=== PATIENT | male | born 1975 | race African-American/Black ===

== ENCOUNTER 2019-06-10 21:57 | Inpatient (IN) | payer MEDICAID ==
[~2019-06-10] VITALS: Ht 180.3 cm; Wt 50.8 kg
--- NOTE | 2019-06-10 22:25 | NUR ---
MOTHER, BART CALLED. [phone]
[2019-06-10] MEDS ORDERED: IV NS 0.9% 500 ML BAG IV ONE (22:30)
--- NOTE | 2019-06-10 22:31 | NUR ---
HALI AT BEDSIDE FOR BLOOD DRAW
--- NOTE | 2019-06-10 22:33 | NUR ---
URINE TAKEN AND SENT TO LAB
[2019-06-10 22:38] LABS: BASOPHILS # (AUTO) 0.1 /CMM (0.0-0.2); BASOPHILS % (AUTO) 0.5 % (0.0-2.0); HEMATOCRIT 38 % (39-51); HEMOGLOBIN 12.8 g/dL (13.5-17.5); LYMPHOCYTES # (AUTO) 1.8 /CMM (0.8-4.8); LYMPHOCYTES % (AUTO) 17.9 % (20.0-44.0); MEAN CORPUSCULAR HGB CONC 33 g/dl (31.0-36.0); MEAN CORPUSCULAR VOLUME 94 fL (80-96); MONOCYTES # (AUTO) 0.6 /CMM (0.1-1.30); MONOCYTES % (AUTO) 6.1 % (2.0-12.0); NEUTROPHILS # (AUTO) 7.4 /CMM (1.8-8.9); NEUTROPHILS % (AUTO) 74.5 % (43.0-81.0); PLATELET COUNT (AUTO) 335 /CMM (150-450); RED BLOOD CELL COUNT(AUTO) 4.08 MIL/uL (4.5-6.0)
[2019-06-10 22:44] LABS: APPEARANCE,URINE Cloudy (CLEAR); BILIRUBIN,URINE MODERATE (NEGATIVE); BLOOD, URINE Large Ery/uL (NEGATIVE); COLOR,URINE Red (YELLOW); KETONES,URINE Trace (NEGATIVE); LEUKOCYTE ESTERASE ,URINE Large (NEGATIVE); NITRITE, URINE Positive (NEGATIVE); PH,URINE 8.5 (5.0-8.0); PROTEIN,URINE >=300 mg/dl (NEGATIVE); UGLUCOSE Negative (NEGATIVE)
[2019-06-10 22:45] LABS: CALCIUM, SERUM 9.3 mg/dL (8.5-10.1); CREATININE 0.6 mg/dL (0.6-1.3); POTASSIUM 4.3 mmol/L (3.5-5.1)
[2019-06-10 22:50] LABS: ALBUMIN 2.7 g/dL (3.4-5.0); BILIRUBIN,DIRECT 0.1 mg/dL (0.0-0.2); BILIRUBIN,TOTAL 0.5 mg/dL (0.2-1.0)
[2019-06-10 23:06] LABS: BACTERIA,URINE Rare /HPF (None Seen); RBC,URINE TOO NUMEROUS TO COUN /HPF (0-2); SQUAMOUS EPITHELIAL CELL,UR Rare /HPF (None Seen); WBC,URINE 0-2 /HPF (0-3)
[2019-06-10] MEDS ORDERED: PIPERACILLIN /TAZOBACTAM 3.375 G VIAL IV ONE (23:16)
[2019-06-10] MEDS ORDERED: VANCOMYCIN 1 GM VIAL ONE (23:16)
--- NOTE | 2019-06-10 23:21 | NUR ---
CALLED HOUSE SUP FOR LEONIDES BED
[2019-06-10] MEDS ORDERED: MAG HYDROX/AL HYDROX/SIMETH 30 ML UDC PO PRN (23:30)
[2019-06-10] MEDS ORDERED: *INSULIN REGULAR(HUMULIN R)HUM 100 UNIT/ML VIAL SQ PRN (23:30)
[2019-06-10] MEDS ORDERED: MAGNESIUM HYDROXIDE 30 ML UDC PO PRN (23:30)
[2019-06-10] MEDS ORDERED: DEXTROSE 50%-WATER 50 ML DISP.SYRIN IV PRN (23:30)
[2019-06-10] MEDS ORDERED: ACETAMINOPHEN 325 MG TABLET PO PRN (23:30)
[2019-06-10] MEDS ORDERED: ONDANSETRON HCL/PF 4 MG/2 ML VIAL IVP PRN (23:30)
[2019-06-10] MEDS ORDERED: INSULIN REGULAR, HUMAN 100 UNIT/ML 3 ML VIAL SQ PRN (23:30)
[2019-06-10] MEDS ORDERED: VANCOMYCIN 1 GM in IV D5W 250 ML IV ONE (23:30)
[2019-06-10] MEDS ORDERED: Z GUARD REMEDY 2 OZ OINT TP PRN (23:30)
[2019-06-10] MEDS ORDERED: PIPERACILLIN /TAZOBACTAM 3.375 G in IV D5W 50 ML IV ONE (23:30)
--- NOTE | 2019-06-11 00:12 | NUR ---
REPORT GIVEN TO LEN BEJARANO JENNY.
[2019-06-11] MEDS ORDERED: CHLO473M3 MM (01:08)
[2019-06-11] MEDS ORDERED: ALBU2.5V13 NEB (01:08)
[2019-06-11] MEDS ORDERED: HYDR100T27 GT (01:08)
[2019-06-11] MEDS ORDERED: LEVE500T9 GT (01:08)
[2019-06-11] MEDS ORDERED: DOCU100C36 GT (01:08)
[2019-06-11] MEDS ORDERED: MULT-1119 GT (01:08)
[2019-06-11] MEDS ORDERED: LORA-259 GT (01:08)
[2019-06-11] MEDS ORDERED: CRAN3875 PO (01:08)
[2019-06-11] MEDS ORDERED: BACL10TA GT (01:08)
[2019-06-11] MEDS ORDERED: NUTR1PAC14 GT (01:08)
[2019-06-11] MEDS ORDERED: AMIN30LI2 GT (01:08)
[2019-06-11] MEDS ORDERED: AMLO5TAB9 GT (01:08)
[2019-06-11] MEDS ORDERED: ASCO500T9 GT (01:08)
[2019-06-11] MEDS ORDERED: FERR325T23 GT (01:08)
[2019-06-11 01:09] VITALS: BP 155/86
[2019-06-11] MEDS: IV NS 0.9% 1,000 ML IV PRN ×2 (02:55→17:19)
--- NOTE | 2019-06-11 03:20 | NUR ---
PT TRANSFERRED STABLE FROM ER, PT ON MV SETTINGS ARE AC 18 400 +5 AT 40 % FIO2, TRACH PATENT AND SECURED, AMBU BAG IS AT BEDSIDE, VENT PLUG IN RED OUTLET, WILL CONTINUE TO MONITOR Addendum: 06/11/19 at 0321 by DEEPTI ELLER RT Amended: Links added.
[2019-06-11 04:00] VITALS: BP 143/87
[2019-06-11] MEDS ORDERED: PIPERACILLIN /TAZOBACTAM 3.375 G VIAL IV ONE (05:27)
[2019-06-11] MEDS ORDERED: PIPERACILLIN /TAZOBACTAM 3.375 G in IV NS 0.9% 50 ML IV SCH (06:00)
[2019-06-11 06:21] LABS: BASOPHILS % (AUTO) 0.5 % (0.0-2.0); EOSINOPHILS % (AUTO) 1.5 % (0.0-6.0); HEMATOCRIT 36 % (39-51); HEMOGLOBIN 12.2 g/dL (13.5-17.5); LYMPHOCYTES # (AUTO) 1.9 /CMM (0.8-4.8); LYMPHOCYTES % (AUTO) 19.9 % (20.0-44.0); MEAN CORPUSCULAR HGB CONC 33 g/dl (31.0-36.0); MEAN CORPUSCULAR VOLUME 94 fL (80-96); MONOCYTES # (AUTO) 0.7 /CMM (0.1-1.30); MONOCYTES % (AUTO) 7.6 % (2.0-12.0); NEUTROPHILS # (AUTO) 6.8 /CMM (1.8-8.9); NEUTROPHILS % (AUTO) 70.5 % (43.0-81.0); PLATELET COUNT (AUTO) 293 /CMM (150-450); WHITE BLOOD COUNT (AUTO) 9.6 K/uL (4.3-11.0)
[2019-06-11 07:20] LABS: CALCIUM, SERUM 9.2 mg/dL (8.5-10.1); CREATININE 0.6 mg/dL (0.6-1.3); PHOSPHORUS 3.1 mg/dL (2.5-4.9); POTASSIUM 4.2 mmol/L (3.5-5.1)
[2019-06-11] MEDS ORDERED: FEE PK DOSING 1 MIN EA MC ONE (07:30)
[2019-06-11] MEDS: BLOOD SUGAR DIAGNOSTIC 1 EACH STRIP VI SCH ×2 (07:55→11:18)
[2019-06-11] MEDS ORDERED: MERO1VIA IV (07:56)
[2019-06-11] MEDS ORDERED: MAGN400O6 GT (07:56)
[2019-06-11] MEDS ORDERED: ACET-2605 GT (07:56)
[2019-06-11] MEDS ORDERED: ACET-868 GT (07:56)
[2019-06-11] MEDS ORDERED: NUT.237L25 GT (07:56)
[2019-06-11] MEDS ORDERED: IPRA3AMP23 IH (07:56)
[2019-06-11] MEDS ORDERED: BISA10SU11 RC (07:56)
[2019-06-11] MEDS ORDERED: NA P133E RC (07:56)
[2019-06-11] MEDS ORDERED: [UNRECOGNIZED DRUG - CODE] IV (07:56)
[2019-06-11] MEDS ORDERED: INSU100V28 SQ (07:56)
[2019-06-11] MEDS ORDERED: MULT-447 GT (07:56)
[2019-06-11] MEDS ORDERED: CHLO118L6 TP (07:56)
[2019-06-11 08:00] VITALS: BP 120/68
--- NOTE | 2019-06-11 08:00 | NUR ---
ICU/RN: INITIAL NOTES,AM RECEIVED BEDSIDE REPORT FROM NIGHT NURSE. PT ALERT, OPENS EYES, DOES NOT FOLLOW COMMANDS. PT TRACH TO VENT WITH SETTINGS ORDEERED BY MD, NO ACUTE RESPIRATORY DISTRESS NOTED. PT SINUS ON TELE. JACOBSON CATH IN PLACE, HEMATURIA NOTED, MD AWARE. GTUBE IN PLACE, DIETARY CONSULT PENDING. PIVS PATENT AND INTACT, NO S/S OF INFECTION NOTED. IVF INFUSING ORDERED. ALL NEEDS WILL BE ATTENDED TO, SAFETY MEASURES TAKEN, BED IN LOW POSITION, SIDE RAILS UP,CALL LIGHT WITHIN REACH. WILL CONTINUE CARE.
[2019-06-11] MEDS: VANCOMYCIN 1 GM in IV D5W 250 ML IV SCH ×3 (08:35→23:25)
[2019-06-11] MEDS: PIPERACILLIN /TAZOBACTAM 3.375 G in IV D5W 100 ML IV SCH ×2 (11:32→19:47)
[2019-06-11 12:00] VITALS: BP 126/80
[2019-06-11] MEDS ORDERED: DEXTROSE 50%-WATER 50 ML DISP.SYRIN IV PRN (14:30)
[2019-06-11 16:00] VITALS: BP 128/72
[2019-06-11] MEDS: BLOOD SUGAR DIAGNOSTIC 1 EACH STRIP IN SCH ×2 (17:19→23:36)
--- NOTE | 2019-06-11 18:53 | NUR ---
ICU/RN ENDING NOTES,AM BEDSIDE REPORT WILL BE ENDORSED TO NIGHT NURSE FOR JENNY. PT CLEAN AND DRY, TRACH TO VENT WITH SETTINGS ORDERED. SINUS ON TELE. ALL NEEDS ATTENDED TO. WAITING FOR FEEDING PUMP FROM [employer] TO START TUBE FEEDING. BED IN LOW POSITION, SIDE RAILS UP, CALL LIGHT WITHIN REACH. WILL CONTINUE CARE. PT STILL NOTED WITH HEMATURIA, MDS AWARE.
[2019-06-11] MEDS: JEVITY 1.2 CAL 1,000 ML BOTTLE GT PRN (19:20)
[2019-06-11 20:00] VITALS: BP 136/95
--- NOTE | 2019-06-11 20:00 | NUR ---
RECEIVED PT IN BED AND REPORT FROM RN KORY, PT ALERT, OPENS EYES, DOES NOT FOLLOW COMMANDS. REMAINS TRACH TO VENT WITH AC SETTINGS ORDEERED BY MD, NO ACUTE RESPIRATORY DISTRESS NOTED. SINUS ON TELE.MONITOR, JACOBSON CATH IN PLACE, STILL HEMATURIA NOTED, MD AWARE. GTUBE IN PLACE, ON JEVITY 1.2 AT 35 CC/HR [id number] NO RESIDUAL NOTED PIVS PATENT AND INTACT, NO S/S OF INFECTION NOTED. IVF INFUSING ORDERED. ALL NEEDS WILL BE ATTENDED TO, SAFETY MEASURES TAKEN, BED IN LOW POSITION, SIDE RAILS UP,CALL LIGHT WITHIN REACH. WILL CONTINUE CARE. KEPT PT CLEAN DRY AND COMFORTABLE.
--- NOTE | 2019-06-11 20:30 | NUR ---
LEONIDES RN NOTES DUE MED GIVEN ORDERED , NO ASE NOTED .V/S STABLE AFEBRILE ,CONTINUE TO MONITOR PTS.
[2019-06-11] MEDS: INSULIN REGULAR, HUMAN 100 UNIT/ML 3 ML VIAL SQ PRN (23:35)
[2019-06-12] VITALS: BP 153/81
--- NOTE | 2019-06-12 | NUR ---
LEONIDES RN NOTES BLOOD SUGAR FOR 12MN IS 102MG/DL NO INSULIN COVERAGE GIVEN PER SLIDING SCALE , PT ON GT FEEDING WILL CHECK BLOOD SUGAR AGAIN AT 0600 HRS.
--- NOTE | 2019-06-12 02:57 | NUR ---
LEONIDES RN NOTES REPORT GIVEN TO LORE FOR CONTINUITY OF CARE.
--- NOTE | 2019-06-12 03:00 | NUR ---
RN OPENING NOTES: RECEIVED REPORT FROM CARLEE SNOWDEN. PATIENT. PATIENT IN BED, ON TRACH WITH VENT SETTINGS TOLERATING WELL. NO RESPIRATORY DISTRESS. NO S/S OF PAIN. NO FACIAL GRIMACING. IV ACCESS RIGHT FA #18 RUNNING NS AT 75 MLS/HR AND RIGHT HAND #24 RUNNING ZOSYN, TOLERATING WELL, NO ASE NOTED. JACOBSON INTACT, PATENT, AND STILL DRAINING CLEAR PINK-TINGED URINE. HOB AT 45 DEGREES, ON GTF, NO RESIDUAL AT THIS TIME. SAFETY PRECAUTIONS IMPLEMENTED. BED LOCKED AND IN LOWEST POSITION. PER ENDORSEMENT, MED RECON STILL NEEDS TO BE DONE. DR. MARTINEZ MADE AWARE BY CARLEE SNOWDEN. PER , F/U WITH AM DOCTOR. CALL LIGHT PLACED WITHIN REACH. WILL CONT. TO MONITOR.
[2019-06-12] MEDS: PIPERACILLIN /TAZOBACTAM 3.375 G in IV D5W 100 ML IV SCH ×3 (03:14→19:49)
[2019-06-12 04:00] VITALS: BP 137/84
[2019-06-12] MEDS: BLOOD SUGAR DIAGNOSTIC 1 EACH STRIP IN SCH ×4 (05:17→23:23)
[2019-06-12] MEDS: IV NS 0.9% 1,000 ML IV PRN ×2 (06:12→23:13)
--- NOTE | 2019-06-12 06:45 | NUR ---
RT NOTE Pt rec'd [facility] on AC mode. Trach is patent and secured. Pt shows no signs of resp distress or sob. Alarms are set and audible. vent plugged into red outlet. Ambu bag bedside. Will continue to monitor. Addendum: 06/12/19 at 0648 by JAMEE CARTER RT Amended: Links added.
--- NOTE | 2019-06-12 06:55 | NUR ---
RN OPENING NOTES: PATIENT IN BED, ON TRACH WITH VENT SETTINGS TOLERATING WELL. NO RESPIRATORY DISTRESS. NO PAIN. IV ACCESS RIGHT FA #18 RUNNING NS AT 75 MLS/HR AND RIGHT HAND #24 RUNNING ZOSYN, TOLERATING WELL, NO ASE NOTED. MED RECON STILL NEEDS TO BE DONE. DR. MARTINEZ MADE AWARE BY CARLEE SNOWDEN. PER , F/U WITH AM DOCTOR. ENDORSED TO AM SHIFT NURSE FOR CONTINUITY OF CARE.
[2019-06-12 07:37] LABS: BASOPHILS # (AUTO) 0.1 /CMM (0.0-0.2); BASOPHILS % (AUTO) 0.9 % (0.0-2.0); HEMATOCRIT 35 % (39-51); HEMOGLOBIN 11.7 g/dL (13.5-17.5); LYMPHOCYTES # (AUTO) 1.6 /CMM (0.8-4.8); LYMPHOCYTES % (AUTO) 20.7 % (20.0-44.0); MEAN CORPUSCULAR HGB CONC 34 g/dl (31.0-36.0); MEAN CORPUSCULAR VOLUME 94 fL (80-96); MONOCYTES # (AUTO) 0.7 /CMM (0.1-1.30); MONOCYTES % (AUTO) 9.1 % (2.0-12.0); NEUTROPHILS # (AUTO) 5.2 /CMM (1.8-8.9); NEUTROPHILS % (AUTO) 66.3 % (43.0-81.0); PLATELET COUNT (AUTO) 283 /CMM (150-450); RED BLOOD CELL COUNT(AUTO) 3.67 MIL/uL (4.5-6.0); WHITE BLOOD COUNT (AUTO) 7.8 K/uL (4.3-11.0)
[2019-06-12 07:48] LABS: CALCIUM, SERUM 8.9 mg/dL (8.5-10.1); CREATININE 0.6 mg/dL (0.6-1.3); MAGNESIUM 1.7 mg/dL (1.8-2.4); PHOSPHORUS 3.4 mg/dL (2.5-4.9); POTASSIUM 3.8 mmol/L (3.5-5.1)
[2019-06-12 08:00] VITALS: BP 103/70
[2019-06-12] MEDS: VANCOMYCIN 1 GM in IV D5W 250 ML IV SCH ×3 (08:21→23:05)
--- NOTE | 2019-06-12 08:52 | NUR ---
received pt from county home demonstration agent, obtunded, SR, on the vent, lungs partially congested, no edema, GT to feeding tolerates well, f/c good output, multiple wounds, v/s stable no pain, pt turned and repositioned.
--- NOTE | 2019-06-12 09:14 | NUR ---
WOUND CARE CONSULT: PT PRESENTS WITH SACRAL SCARRING, LEFT SHOULDER STAGE 3 ULCER, RT POSTERIOR THIGH STAGE 2 ULCER, SCARRING TO RT HEEL AND LEFT PLANTAR FOOT, PRESENT ON ADMISSION. PT IS INCONTINENT OF STOOL. RECOMMENDATIONS MADE FOR SKIN PROTECTION AND WOUND CARE. DISCUSSED WITH NURSING STAFF. PT ON FIRST STEP [facility]. DR DARBY MCKENNA AWARE OF SURGICAL CONSULT REQUEST FOR LEFT SHOULDER WOUND. WILL SEE PRN. MAO IN AGREEMENT WITH PLAN OF CARE. Addendum: 06/12/19 at 0916 by BLANCA ORTEGA WNDNU Amended: Links added.
[2019-06-12] MEDS: MULTIVIT W/MINERALS 1 TAB TABLET GT SCH (09:29)
[2019-06-12] MEDS ORDERED: ACETAMINOPHEN 325 MG TABLET PO PRN (09:30)
[2019-06-12] MEDS ORDERED: BISACODYL SUPP (10 MG) 10 MG/SUPP.RECT SUPP.RECT RC PRN (09:30)
[2019-06-12] MEDS ORDERED: HYDROGEL DRESSING 90 GM TUBE TP PRN (09:30)
[2019-06-12] MEDS ORDERED: TWOCAL HN 1,000 ML LIQUID GT SCH (09:30)
[2019-06-12] MEDS ORDERED: MAGNESIUM HYDROXIDE 30 ML UDC GT PRN (09:30)
[2019-06-12] MEDS ORDERED: MISCELLANEOUS MED 1 EA EA GT PRN (09:30)
[2019-06-12] MEDS: PROSOURCE / PROSTAT (PYXIS) 30 ML UDC GT SCH (09:30)
[2019-06-12] MEDS: hydrALAZINE HCL 50 MG TABLET GT SCH ×3 (09:30→16:37)
[2019-06-12] MEDS ORDERED: NA PHOS,M-B/NA PHOS,DI-BA 1 EA ENEMA RC PRN (09:30)
[2019-06-12] MEDS: HYDROGEL DRESSING 90 GM TUBE TP SCH (09:31)
[2019-06-12] MEDS: LEVETIRACETAM SOL (5 ML) 100 MG/ML UDC GT SCH ×2 (09:34→20:30)
[2019-06-12] MEDS: CHLORHEXIDINE GLUCONATE 15 ML UDC MM SCH ×2 (09:34→20:30)
[2019-06-12] MEDS: Magnesium 1GM/D5W 100ML PREMIX 100 ML IV SCH ×2 (11:49→12:59)
[2019-06-12 12:00] VITALS: BP 108/75
[2019-06-12] MEDS: BACLOFEN (10 MG) 10 MG TABLET GT SCH ×2 (12:36→16:38)
[2019-06-12] MEDS: ALBUTEROL FS 2.5 MG/0.5 ML VIAL.NEB NEB SCH ×2 (12:48→20:01)
[2019-06-12] MEDS: IPRATROPIUM NEB FS 0.5 MG/2.5 ML AMPUL.NEB NEB SCH ×2 (12:48→20:01)
[2019-06-12] MEDS ORDERED: Medication Not On Formulary EA (Ipratropium/Albuterol Sulfate (Duoneb 2.5-0.5 Mg/3 Ml So IH SCH (13:30)
[2019-06-12 16:00] VITALS: BP 100/73
--- NOTE | 2019-06-12 16:20 | NUR ---
pt is resting in the bed, no acute distress during the day, v/s stable, no pain, pt cleaned, changed and repositioned q2hrs.
[2019-06-12] MEDS ORDERED: ARGININE/GLUTAMINE/CALCIUM BMB 1 EACH POWD.PACK GT SCH (17:00)
[2019-06-12] MEDS ORDERED: Medication Not On Formulary EA (Cran/Vitc/Mannose/Inulin/Brom (Uti-Stat Liquid) 30 ML) PO SCH (17:00)
--- NOTE | 2019-06-12 19:00 | NUR ---
RN NOTES: RECEIVED PATIENT ON SEMI FOWLERS POSITION, OBTUNDED, NON VERBAL, OPEN EYES, ON TELE MONITOR SR RATE=73, ON VENTILATOR SHILEY SIZE8, AC-18 TV-400 FiO2-40% PEEP 5, ON JACOBSON CATH DRAINING INTO YELLOWISH COLORED URINE, CLEAR, NO RESIDUE OR SEDIMENTS NOTED, PEG TUBE IN SITE, WITH FEEDING ONGOING OF JEVITY 1.2 AT 35 ML/HR, WITH IVF OF NS AT 75 ML/HR VIA RFA G#18, PER ENDORSEMENT PATIENT HAS MULTIPLE SKIN ISSUES, LEFT SHOULDER STAGE III ULCER, SACRAL SCARRING, RIGHT POSTERIOR THIGH STAGE 2, RIGHT HEEL AND LEFT PLANTAR FOOT SCARRING. TURNING AND REPOSITIONING Q 2H, OFF LOADING AND ELEVATION OF BLE. KEPT ON CLOSE WATCH.ORIENTED TO UNIT AND STAFF, FALL,SAFETY AND ASPIRATION PRECAUTION OBSERVED, BED LOW AND LOCKED, CALL LIGHT WITHIN EASY REACH.
[2019-06-12 20:00] VITALS: BP 135/91
[2019-06-12] MEDS: JEVITY 1.2 CAL 1,000 ML BOTTLE GT PRN (20:31)
--- NOTE | 2019-06-12 20:39 | NUR ---
RN NOTES: PEG FEED FINISHED AT 2030, NEW BOTTLE OF JEVITY 1.2 AT 35 ML/HR STARTED, ALSO DUE MEDICATION GIVEN, TOLERATED, NO RESIDUAL, PEG FEEL REMAIN PATENT, NEEDS ATTENDED.
--- NOTE | 2019-06-12 22:45 | NUR ---
RN NOTES: TURNING AND REPOSITIONING DONE, NOTICED PATIENT GRIMACE DURING CHANGE OF POSITION, TYLENOL PRN FOR PAIN GIVEN, NON PHARMACOLOGIC INTERVENTION ALSO RENDERED, SUCH WARM BLANKET AND DIM LIT ROOM.NEEDS ATTENDED.
[2019-06-12] MEDS: INSULIN REGULAR, HUMAN 100 UNIT/ML 3 ML VIAL SQ PRN (23:24)
--- NOTE | 2019-06-12 23:24 | NUR ---
RN NOTES: BLOOD SUGAR 130, NO INSULIN PER SCALE, WILL CONTINUE TO MONITOR FOR SIGN OF HYPER AND HYPOGLYCEMIA.IVF COMPLTED REPLACE WITH NEW BOTTLE OF NS AT 75 ML/HR. DUE IV/ATB GIVEN.
[2019-06-13] VITALS (7 sets, daily range): BP systolic 113–150; BP diastolic 79–98
[2019-06-13] MEDS: IPRATROPIUM NEB FS 0.5 MG/2.5 ML AMPUL.NEB NEB SCH ×4 (02:00→19:30)
[2019-06-13] MEDS: ALBUTEROL FS 2.5 MG/0.5 ML VIAL.NEB NEB SCH ×4 (02:00→19:30)
--- NOTE | 2019-06-13 02:28 | NUR ---
RN NOTES: -MORNING CARE DONE, SPONGE BATH RENDERED, CLEAN AND CHANGE, NO BM, DRESSING DONE LEFT SHOULDER STAGE 3, DRY AND REDDISH PICK SURROUNDING, SACRAL AREA SCARRING IS DRY COVERED WITH MEPELEX, LEFT PLANTAR FOOT SCAR AND RIGHT HEEL SCAR COVERED WITH MEPELEX AND KEEP ELEVATED AND OFFLOAD, RIGHT POSTERIOR THIGH STAGE 2 DRY AND PICKISH/RED SURROUNDING HYDROGEL APPLIED AND COVERED WITH MEPELEX. TURNED AND REPOSITION AT FREQUENT INTERVALS.
[2019-06-13] MEDS: PIPERACILLIN /TAZOBACTAM 3.375 G in IV D5W 100 ML IV SCH ×3 (03:16→20:00)
[2019-06-13] MEDS: INSULIN REGULAR, HUMAN 100 UNIT/ML 3 ML VIAL SQ PRN (05:29)
[2019-06-13] MEDS: BLOOD SUGAR DIAGNOSTIC 1 EACH STRIP IN SCH ×4 (05:29→23:58)
--- NOTE | 2019-06-13 05:30 | NUR ---
RN NOTES: BLOOD SUGAR CHECKED-112, NO INSULIN PER SCALE, JEVITY 1.2 AT 45ML/HR FEEDING CONTINUE, PEG DRESSING CHANGE, WILL CONTINUE TO MONITOR FOR ANY JENNY. NEEDS ATTENDED.
--- NOTE | 2019-06-13 06:46 | NUR ---
RN NOTES: NEEDS ATTENDED TELE SR RATE=71, LATEST WEIGHT-114, NO BM, URINE OUTPUT-1500ML, FOR BLOOD TEST DONE TO F/U RESULT. ENDORSED FOR CONTINUITY OF CARE
[2019-06-13 06:55] LABS: BASOPHILS % (AUTO) 0.5 % (0.0-2.0); CREATININE 0.7 mg/dL (0.6-1.3); HEMATOCRIT 34 % (39-51); HEMOGLOBIN 11.3 g/dL (13.5-17.5); LYMPHOCYTES # (AUTO) 1.7 /CMM (0.8-4.8); LYMPHOCYTES % (AUTO) 23.7 % (20.0-44.0); MEAN CORPUSCULAR HGB CONC 33 g/dl (31.0-36.0); MEAN CORPUSCULAR VOLUME 94 fL (80-96); MONOCYTES # (AUTO) 0.7 /CMM (0.1-1.30); MONOCYTES % (AUTO) 9.5 % (2.0-12.0); NEUTROPHILS # (AUTO) 4.6 /CMM (1.8-8.9); NEUTROPHILS % (AUTO) 63.3 % (43.0-81.0); PHOSPHORUS 3.5 mg/dL (2.5-4.9); PLATELET COUNT (AUTO) 309 /CMM (150-450); RED BLOOD CELL COUNT(AUTO) 3.63 MIL/uL (4.5-6.0); WHITE BLOOD COUNT (AUTO) 7.3 K/uL (4.3-11.0)
[2019-06-13] MEDS: MULTIVIT W/MINERALS 1 TAB TABLET GT SCH (08:21)
[2019-06-13] MEDS: ASCORBIC ACID 500 MG TABLET GT SCH (08:21)
[2019-06-13] MEDS: LEVETIRACETAM SOL (5 ML) 100 MG/ML UDC GT SCH ×2 (08:21→21:10)
[2019-06-13] MEDS: FERROUS SULFATE (325 MG) 325 MG/TAB TABLET GT SCH (08:21)
[2019-06-13] MEDS: CHLORHEXIDINE GLUCONATE 15 ML UDC MM SCH ×2 (08:21→21:12)
[2019-06-13] MEDS: hydrALAZINE HCL 50 MG TABLET GT SCH ×3 (08:21→16:08)
[2019-06-13] MEDS: BACLOFEN (10 MG) 10 MG TABLET GT SCH ×3 (08:21→16:07)
[2019-06-13] MEDS: DOCUSATE SODIUM 100 MG CAPSULE PO SCH (08:21)
[2019-06-13] MEDS: AMLODIPINE BESYLATE 5 MG TABLET GT SCH (08:22)
[2019-06-13] MEDS: PROSOURCE / PROSTAT (PYXIS) 30 ML UDC GT SCH (08:22)
[2019-06-13] MEDS: HYDROGEL DRESSING 90 GM TUBE TP SCH (08:23)
[2019-06-13] MEDS: VANCOMYCIN 1 GM in IV D5W 250 ML IV SCH (08:24)
[2019-06-13] MEDS: IV NS 0.9% 1,000 ML IV PRN (14:59)
[2019-06-13] MEDS: VANCOMYCIN 0.75 GM in IV D5W 250 ML IV SCH ×2 (15:23→23:57)
--- NOTE | 2019-06-13 17:10 | NUR ---
RT Patient received trach'd and on [facility] vent w charted settings. Vent is plugged into the red outlet w bvm @ hob. Alarms are set and audible. Pt is stable. No respiratory distress or sob t/o shift. Will continue to monitor. Addendum: 06/13/19 at 1720 by GIANA MCGEE RT Amended: Links added.
--- NOTE | 2019-06-13 18:56 | NUR ---
TELE/RN CLOSING NOTES PATIENT CONTINUES TO REMAIN IN STABLE CONDITION THROUGHOUT THE SHIFT. PROVIDED COMFORT AND SAFETY. IV ACCESS ON R HAND AND RFA INTACT AND PATENT. FLUSHING WELL. NO S/S OF INFECTION OR INFILTRATION. PATIENT ABLE TO TOLERATE FEEDING AND MEDS WELL VIA GT. HOB ELEVATED AT ALL TIMES. ALL NEEDS ANTICIPATED. CALL LIGHT WITHIN REACHED. BED LOCKED AND IN LOWEST POSITION. WILL CONTINUE TO MONITOR CLOSELY. ENDORSED TO PM NURSE FOR JENNY.
--- NOTE | 2019-06-13 19:05 | NUR ---
RETURN TO VENDOR NOTE RECEIVED PT IN STABLE CONDITION. NOTED WITH TRACH/VENT, TOLERATING SETTINGS WELL. TELE MONITOR SR. RT NOTED AT BEDSIDE. JACOBSON INTACT WITH ADEQUATE CLEAR, YELLOW URINE DRAINING. NOTED WITH GTUBE FEEDING INFUSING WITH MINIMAL RESIDUAL. IV IN RFA #[address] WITH IVF INFUSING. ALL CURRENT NEEDS ATTENDED TO. BED LOW, LOCKED, UPPER RAILS UP, CALL LIGHT WITHIN REACH, WILL REPOSITION PER PROTOCOL. WILL CONT. TO MONITOR.
--- NOTE | 2019-06-13 19:05 | NUR ---
WEIGHER AND MIXER NOTE GTUBE FEEDING NOTED TO BE RUNNING AT 55 ML/HR, MINIMAL RESIDUAL NOTED. WILL INCREASE DOSE TO REACH GOAL OF 65 ML/HR. PER MD ORDER. WILL CONT. TO MONITOR.
[2019-06-14] VITALS: BP 147/89
[2019-06-14] MEDS: ALBUTEROL FS 2.5 MG/0.5 ML VIAL.NEB NEB SCH ×4 (00:21→20:07)
[2019-06-14] MEDS: IPRATROPIUM NEB FS 0.5 MG/2.5 ML AMPUL.NEB NEB SCH ×4 (00:21→20:07)
[2019-06-14] MEDS: JEVITY 1.2 CAL 1,000 ML BOTTLE GT PRN ×2 (00:51→18:14)
[2019-06-14] MEDS: PIPERACILLIN /TAZOBACTAM 3.375 G in IV D5W 100 ML IV SCH ×2 (03:32→12:36)
[2019-06-14 04:00] VITALS: BP 148/92
[2019-06-14] MEDS: IV NS 0.9% 1,000 ML IV PRN ×2 (04:29→21:21)
[2019-06-14] MEDS: BLOOD SUGAR DIAGNOSTIC 1 EACH STRIP IN SCH ×3 (05:09→18:11)
--- NOTE | 2019-06-14 06:18 | NUR ---
DEPUTY CLERK OF SUPERIOR COURT NOTE PT REMAINS IN STABLE CONDITION. NOTED WITH TRACH/VENT, TOLERATING SETTINGS WELL. TELE MONITOR SR. JACOBSON INTACT WITH ADEQUATE CLEAR, YELLOW URINE DRAINING. NOTED WITH GTUBE FEEDING INFUSING WITH MINIMAL RESIDUAL, TOLERATING WELL. IV IN RFA #[address] WITH IVF INFUSING. ALL CURRENT NEEDS ATTENDED TO. BED LOW, LOCKED, UPPER RAILS UP, CALL LIGHT WITHIN REACH, REPOSITIONED PER PROTOCOL. WILL CONT. TO MONITOR AND ENDORSE TO NEXT SHIFT FOR JENNY.
[2019-06-14 06:25] LABS: BASOPHILS % (AUTO) 0.6 % (0.0-2.0); EOSINOPHILS % (AUTO) 2.4 % (0.0-6.0); HEMATOCRIT 33 % (39-51); LYMPHOCYTES # (AUTO) 1.7 /CMM (0.8-4.8); LYMPHOCYTES % (AUTO) 23.7 % (20.0-44.0); MEAN CORPUSCULAR HGB CONC 34 g/dl (31.0-36.0); MEAN CORPUSCULAR VOLUME 94 fL (80-96); MONOCYTES # (AUTO) 0.8 /CMM (0.1-1.30); NEUTROPHILS # (AUTO) 4.5 /CMM (1.8-8.9); NEUTROPHILS % (AUTO) 62.3 % (43.0-81.0); PLATELET COUNT (AUTO) 307 /CMM (150-450); RED BLOOD CELL COUNT(AUTO) 3.52 MIL/uL (4.5-6.0); WHITE BLOOD COUNT (AUTO) 7.2 K/uL (4.3-11.0)
[2019-06-14 06:37] LABS: CREATININE 0.7 mg/dL (0.6-1.3); MAGNESIUM 1.7 mg/dL (1.8-2.4); PHOSPHORUS 3.5 mg/dL (2.5-4.9); POTASSIUM 4.2 mmol/L (3.5-5.1)
[2019-06-14 08:00] VITALS: BP 151/93
--- NOTE | 2019-06-14 08:00 | NUR ---
TELE1/RN AM SHIFT INITIAL NOTES RECEIVED PT ASLEEP IN BED, PT OBTUNDED, OPEN EYES, NO GRIMACING OR ACUTE CHANGE OF CONDITION. ON VENTILATOR WITH RATES SET PRESCRIBED, SATURATING @ 100%, RESPIRATIONS EVEN & UNLABORED, LUNG SOUNDS CLEAR. SUCTIONED FOR AIRWAY CLEARANCE. ON TELE WITH SINUS RHYTHM, HR 63. PT WITH ON GOING IV INFUSION OF NS @ 75CC/HR, IV SITE PATENT, WITH NO S/S OF INFECTION. GTF FEEDING ON GOING @ 65CC./HR, NO GASTRIC RESIDUAL NOTED, FLUSHED, PATENT. JACOBSON CATHETER INTACT WITH CLEAR YELLOW URINE OUTPUT. PT IS COMFORTABLE, SCHEDULED AM MED TO BE GIVEN. CL WITHIN REACHED AND SAFETY MAINTAINED. ON GOING MONITORING.
[2019-06-14] MEDS: LEVETIRACETAM SOL (5 ML) 100 MG/ML UDC GT SCH ×2 (09:29→22:12)
[2019-06-14] MEDS: hydrALAZINE HCL 50 MG TABLET GT SCH ×3 (09:29→18:11)
[2019-06-14] MEDS: VANCOMYCIN 0.75 GM in IV D5W 250 ML IV SCH (09:29)
[2019-06-14] MEDS: ASCORBIC ACID 500 MG TABLET GT SCH (09:29)
[2019-06-14] MEDS: PROSOURCE / PROSTAT (PYXIS) 30 ML UDC GT SCH (09:29)
[2019-06-14] MEDS: BACLOFEN (10 MG) 10 MG TABLET GT SCH ×3 (09:29→18:11)
[2019-06-14] MEDS: CHLORHEXIDINE GLUCONATE 15 ML UDC MM SCH ×2 (09:29→21:15)
[2019-06-14] MEDS: AMLODIPINE BESYLATE 5 MG TABLET GT SCH (09:30)
[2019-06-14] MEDS: DOCUSATE SODIUM 100 MG CAPSULE PO SCH (09:30)
[2019-06-14] MEDS: MULTIVIT W/MINERALS 1 TAB TABLET GT SCH (09:30)
[2019-06-14] MEDS: FERROUS SULFATE (325 MG) 325 MG/TAB TABLET GT SCH (09:30)
[2019-06-14] MEDS: HYDROGEL DRESSING 90 GM TUBE TP SCH (09:30)
[2019-06-14 12:00] VITALS: BP 131/75
[2019-06-14] MEDS: Magnesium 1GM/D5W 100ML PREMIX 100 ML IV SCH ×2 (12:43→15:06)
[2019-06-14 16:00] VITALS: BP 133/74
[2019-06-14] MEDS: LORAZEPAM 1 MG TABLET GT PRN (19:16)
--- NOTE | 2019-06-14 19:30 | NUR ---
REAL ESTATE ACCOUNT EXECUTIVE OPENING NOTES, RECEIVED PATIENT FROM AM RN, IN BED, RESTING. ON TRACH WITH VENT SETTING TOLERATING WELL. SATURATING @ 100%, PATIENT OBTUNDED, OPENS EYES. NO RESPIRATION DISTRESS NOTED. NO PAIN. ON TELE WITH SINUS RHYTHM, HR IN LOW 100s. PATIENT WITH ON GOING IV INFUSION OF NS @ 75CC/HR, IV ON RFA, PATENT, WITH NO S/S OF INFILTRATION . JEVITY FEEDING ON GOING @ 65CC./HR, NO GASTRIC RESIDUAL NOTED. JACOBSON CATHETER INTACT WITH CLEAR YELLOW URINE OUTPUT. PT IS COMFORTABLE. CALL LIGHT WITHIN REACHED AND SAFETY MAINTAINED. WILL CONTINUE TO MONITOR
--- NOTE | 2019-06-14 19:32 | NUR ---
TELE1/RN AM SHIFT INITIAL NOTES ALL NEEDS MET, NO ACUTE CHANGE OF CONDITION NOTED DURING THE SHIFT. PT ENDORSED TO PM NURSE TO CONTINUE CARE. CL WITHIN REACHED AND SAFETY MAINTAINED. Addendum: 06/14/19 at 1934 by LIAM CORDON RN ERROR IN CHARTING: AM SHIFT END NOTES
[2019-06-14 20:00] VITALS: BP 145/72
--- NOTE | 2019-06-14 20:09 | NUR ---
PT RELIEVED ON VENT VIA TRACH SECURED VIA TRACH TIE, AIRWAY PATENT. PT ALERT. SUCTIONED A SMALL AMOUNT OF THIN CLEAR SECRETIONS. AMBU BAG AT BEDSIDE ALARMS SET AND AUDIBLE. PT RECEIVING ALBUTEROL AND ATROVENT Q6 AT THIS TIME. NO RESP DISTRESS NOTED. Addendum: 06/14/19 at 2012 by BERT PEREZ RT Amended: Links added.
[2019-06-14] MEDS: AMOX/CLAVULANATE 875 MG TABLET PO SCH (21:16)
[2019-06-15] VITALS (7 sets, daily range): BP systolic 120–150; BP diastolic 65–95
[2019-06-15] MEDS: BLOOD SUGAR DIAGNOSTIC 1 EACH STRIP IN SCH ×4 (00:14→17:11)
[2019-06-15] MEDS: INSULIN REGULAR, HUMAN 100 UNIT/ML 3 ML VIAL SQ PRN (00:16)
[2019-06-15] MEDS: ALBUTEROL FS 2.5 MG/0.5 ML VIAL.NEB NEB SCH ×4 (01:41→19:29)
[2019-06-15] MEDS: IPRATROPIUM NEB FS 0.5 MG/2.5 ML AMPUL.NEB NEB SCH ×4 (01:41→19:29)
[2019-06-15 06:47] LABS: BASOPHILS % (AUTO) 0.3 % (0.0-2.0); EOSINOPHILS % (AUTO) 0.8 % (0.0-6.0); HEMATOCRIT 35 % (39-51); HEMOGLOBIN 11.5 g/dL (13.5-17.5); LYMPHOCYTES # (AUTO) 1.3 /CMM (0.8-4.8); LYMPHOCYTES % (AUTO) 15.7 % (20.0-44.0); MEAN CORPUSCULAR HGB CONC 33 g/dl (31.0-36.0); MEAN CORPUSCULAR VOLUME 94 fL (80-96); MONOCYTES # (AUTO) 0.8 /CMM (0.1-1.30); MONOCYTES % (AUTO) 9.8 % (2.0-12.0); NEUTROPHILS # (AUTO) 6.2 /CMM (1.8-8.9); NEUTROPHILS % (AUTO) 73.4 % (43.0-81.0); PLATELET COUNT (AUTO) 314 /CMM (150-450); RED BLOOD CELL COUNT(AUTO) 3.73 MIL/uL (4.5-6.0); WHITE BLOOD COUNT (AUTO) 8.4 K/uL (4.3-11.0)
[2019-06-15 06:58] LABS: CREATININE 0.6 mg/dL (0.6-1.3); MAGNESIUM 1.9 mg/dL (1.8-2.4); PHOSPHORUS 3.4 mg/dL (2.5-4.9)
--- NOTE | 2019-06-15 07:01 | NUR ---
INSTALLATION SERVICE REPRESENTATIVE CLOSING NOTES, PATIENT SLEEPING. ON TRACH WITH VENT SETTING TOLERATING WELL. SATURATING @ 100%, PATIENT OBTUNDED, OPENS EYES. NO RESPIRATION DISTRESS NOTED. NO PAIN. ON TELE WITH SINUS RHYTHM, HR IN HIGH 70s. PATIENT WITH ON GOING IV INFUSION OF NS @ 75CC/HR, IV ON RFA, PATENT, WITH NO S/S OF INFILTRATION . JEVITY FEEDING ON GOING @ 65CC./HR, NO GASTRIC RESIDUAL NOTED. JACOBSON CATHETER INTACT WITH CLEAR YELLOW URINE OUTPUT. PT IS COMFORTABLE. CALL LIGHT WITHIN REACHED AND SAFETY MAINTAINED. WILL ENDORSE THE PATIENT TO AM RN.
--- NOTE | 2019-06-15 08:00 | NUR ---
TELE 1/RN AM INITIAL NOTES PATIENT RECEIVED SLEEPING IN BED. ON TRACH WITH VENT SETTINGS TOLERATING WELL. O2 SATURATION @ 100%. ON TELE WITH SINUS [id number]. PATIENT IS OBTUNDED, OPENS EYES AND MOUTH OCCASIONALLY. NO RESPIRATION DISTRESS NOTED. PT DOES NOT SEEM TO BE IN PAIN OR DISCOMFORT. ONGOING IV INFUSION SET AT 75CC/HR IN RFA. JEVITY FEEDING ONGOING AT 65CC/HR. CATHETER IN PLACE WITH CLEAR YELLOW URINE. PT IS COMFORTABLE AND SAFETY MAINTAINED.
[2019-06-15] MEDS: PROSOURCE / PROSTAT (PYXIS) 30 ML UDC GT SCH (09:00)
[2019-06-15] MEDS: ASCORBIC ACID 500 MG TABLET GT SCH (09:04)
[2019-06-15] MEDS: BACLOFEN (10 MG) 10 MG TABLET GT SCH ×3 (09:04→17:09)
[2019-06-15] MEDS: MULTIVIT W/MINERALS 1 TAB TABLET GT SCH (09:04)
[2019-06-15] MEDS: DOCUSATE SODIUM 100 MG CAPSULE PO SCH (09:05)
[2019-06-15] MEDS: AMOX/CLAVULANATE 875 MG TABLET PO SCH ×2 (09:05→21:11)
[2019-06-15] MEDS: AMLODIPINE BESYLATE 5 MG TABLET GT SCH (09:05)
[2019-06-15] MEDS: FERROUS SULFATE (325 MG) 325 MG/TAB TABLET GT SCH (09:05)
[2019-06-15] MEDS: LEVETIRACETAM SOL (5 ML) 100 MG/ML UDC GT SCH ×2 (09:06→21:11)
[2019-06-15] MEDS: hydrALAZINE HCL 50 MG TABLET GT SCH ×3 (09:06→17:10)
[2019-06-15] MEDS: CHLORHEXIDINE GLUCONATE 15 ML UDC MM SCH ×2 (09:06→21:11)
[2019-06-15] MEDS: DOCUSATE SODIUM LIQ 100 MG/10 ML UDC GT SCH (09:29)
[2019-06-15] MEDS ORDERED: CHLORHEXIDINE GLUCONATE 4% 118 ML BOTTLE TP SCH (09:30)
[2019-06-15] MEDS: IV NS 0.9% 1,000 ML IV PRN (09:41)
[2019-06-15] MEDS: HYDROGEL DRESSING 90 GM TUBE TP SCH (09:42)
[2019-06-15] MEDS: JEVITY 1.2 CAL 1,000 ML BOTTLE GT PRN (09:44)
--- NOTE | 2019-06-15 14:08 | NUR ---
TELE1/RN ROUNDS NO ACUTE CHANGE OF CONDITION. PT REPOSITIONED. RESTING COMFORTABLY. MONITORING CONTINUED.
--- NOTE | 2019-06-15 16:40 | NUR ---
RT Patient received trach'd [facility] w charted settings. Vent is plugged into the red outlet w bvm @ hob. Alarms are set and audible. Pt is stable. No respiratory distress or sob t/o shift. Will continue to monitor. Addendum: 06/15/19 at 1712 by GIANA MCGEE RT Amended: Links added.
--- NOTE | 2019-06-15 18:00 | NUR ---
TELE 1/RN AFTERNOON ROUNDS PATIENT IN STABLE CONDITION, NO ACUTE CHANGES NOTED. PM CARE PROVIDED, TURNED AND REPOSITIONED. MONITORING CONTINUED.
--- NOTE | 2019-06-15 19:12 | NUR ---
TELE 1/RM AM SHIFT CLOSING NOTES ALL PT NEEDS MET, PT IS STABLE. NO ACUTE CHANGE OF PT CONDITION. CALL LIGHT IN REACH. SAFETY MAINTAINED. PATIENT ENDORSED TO PM NURSE TO CONTINUE CARE.
--- NOTE | 2019-06-15 19:30 | NUR ---
PM RN OPENING NOTES, RECEIVED PATIENT IN BED SLEEPING. ON TRACH WITH VENT SETTINGS TOLERATING WELL. O2 SATURATION @ 100%. ON TELE WITH SR. PATIENT IS OBTUNDED, OPENS EYES. NO RESPIRATION DISTRESS NOTED. NO PAIN NOTED. ONGOING NS IV INFUSION SET AT 75CC/HR IN RFA. JEVITY FEEDING ONGOING AT 65CC/HR. CATHETER IN PLACE WITH CLEAR YELLOW URINE. PATIENT IS COMFORTABLE AND SAFETY MAINTAINED. WILL CONTINUE TO MONITOR
[2019-06-16] VITALS: BP 148/148
[2019-06-16] MEDS: IV NS 0.9% 1,000 ML IV PRN ×2 (00:34→15:30)
[2019-06-16] MEDS: BLOOD SUGAR DIAGNOSTIC 1 EACH STRIP IN SCH ×4 (00:38→17:59)
[2019-06-16] MEDS: JEVITY 1.2 CAL 1,000 ML BOTTLE GT PRN ×2 (00:41→17:12)
[2019-06-16] MEDS: IPRATROPIUM NEB FS 0.5 MG/2.5 ML AMPUL.NEB NEB SCH ×4 (01:51→20:03)
[2019-06-16] MEDS: ALBUTEROL FS 2.5 MG/0.5 ML VIAL.NEB NEB SCH ×4 (01:51→20:03)
[2019-06-16 07:54] LABS: BASOPHILS % (AUTO) 0.5 % (0.0-2.0); CREATININE 0.7 mg/dL (0.6-1.3); EOSINOPHILS % (AUTO) 1.5 % (0.0-6.0); HEMATOCRIT 34 % (39-51); HEMOGLOBIN 11.4 g/dL (13.5-17.5); LYMPHOCYTES # (AUTO) 1.8 /CMM (0.8-4.8); LYMPHOCYTES % (AUTO) 20.4 % (20.0-44.0); MAGNESIUM 1.6 mg/dL (1.8-2.4); MEAN CORPUSCULAR HGB CONC 34 g/dl (31.0-36.0); MEAN CORPUSCULAR VOLUME 94 fL (80-96); MONOCYTES # (AUTO) 0.7 /CMM (0.1-1.30); MONOCYTES % (AUTO) 8.5 % (2.0-12.0); NEUTROPHILS % (AUTO) 69.1 % (43.0-81.0); PLATELET COUNT (AUTO) 317 /CMM (150-450); POTASSIUM 4.4 mmol/L (3.5-5.1); RED BLOOD CELL COUNT(AUTO) 3.62 MIL/uL (4.5-6.0); WHITE BLOOD COUNT (AUTO) 8.7 K/uL (4.3-11.0)
[2019-06-16 08:00] VITALS: BP 131/86
--- NOTE | 2019-06-16 08:00 | NUR ---
TELE 1 RN INITIAL NOTES PT RECEIVE SLEEPING IN BED. ON TRACH WITH VENT SETTINGS TOLERATING WELL. PATIENT IS OBTUNDED OCCASIONALLY OPENS EYES. ON TRACH WITH VENT SETTING TOLERATING WELL. O2 SATURATION @ 100%. PT IS ON TELE MONITOR WITH SR AND HR AT 87BPM. PT IS ON JEVITY FEEDING AT 65CC/HR. CONTINUOUS NS IV INFUSION SET AT 75CC/HR. CATHETER IS IN PLACE WITH CLEAR YELLOW URINE. PATIENT SAFETY MAINTAINED. CALL LIGHT IN REACH. WILL CONTINUE MONITORING.
[2019-06-16] MEDS: DOCUSATE SODIUM LIQ 100 MG/10 ML UDC GT SCH (09:32)
[2019-06-16] MEDS: CHLORHEXIDINE GLUCONATE 15 ML UDC MM SCH (09:32)
[2019-06-16] MEDS: FERROUS SULFATE (325 MG) 325 MG/TAB TABLET GT SCH (09:33)
[2019-06-16] MEDS: ASCORBIC ACID 500 MG TABLET GT SCH (09:33)
[2019-06-16] MEDS: MULTIVIT W/MINERALS 1 TAB TABLET GT SCH (09:33)
[2019-06-16] MEDS: LEVETIRACETAM SOL (5 ML) 100 MG/ML UDC GT SCH (09:33)
[2019-06-16] MEDS: AMOX/CLAVULANATE 875 MG TABLET PO SCH (09:34)
[2019-06-16] MEDS: hydrALAZINE HCL 50 MG TABLET GT SCH ×3 (09:34→16:26)
[2019-06-16] MEDS: BACLOFEN (10 MG) 10 MG TABLET GT SCH ×3 (09:35→16:26)
[2019-06-16] MEDS: AMLODIPINE BESYLATE 5 MG TABLET GT SCH (09:35)
[2019-06-16] MEDS: PROSOURCE / PROSTAT (PYXIS) 30 ML UDC GT SCH (09:43)
[2019-06-16] MEDS: HYDROGEL DRESSING 90 GM TUBE TP SCH (09:43)
--- NOTE | 2019-06-16 10:30 | NUR ---
TELE1/RN ROUNDS - DR. WHITLEY UPDATED PT'S CONDITION. PT SEEN & EXAMINED BY DR. WHITLEY. NO NEW ORDER RECEIVED AT THIS TIME.
[2019-06-16] MEDS: Magnesium 1GM/D5W 100ML PREMIX 100 ML IV SCH ×2 (10:43→11:56)
[2019-06-16 12:00] VITALS: BP 123/79
--- NOTE | 2019-06-16 15:40 | NUR ---
RT NOTE PT RECEIVED TRACHED ON MECHANICAL VENT W/ SETTINGS PER . VENT ALARMS CHECKED AND AUDIBLE, VENT IN RED OUTLET, AMBUBAG AT BEDSIDE. PT SX'ED AND LAVAGED PRN. BS EQUAL, DIMINISHED. TRACH PATENT, SECURED, CLEAN. NO RESP DISTRESS NOTED. Addendum: 06/16/19 at 1541 by MANASA NEVAREZ RT Amended: Links added.
[2019-06-16 16:00] VITALS: BP 125/75
[2019-06-16] MEDS ORDERED: LEVO750T21 PO (16:01)
[2019-06-16] MEDS ORDERED: Amox/Clavulanate PO (16:06)
[2019-06-16] MEDS ORDERED: LACT-209 GT (16:06)
[2019-06-16] MEDS: LORAZEPAM 1 MG TABLET GT PRN (17:57)
--- NOTE | 2019-06-16 19:00 | NUR ---
TELE 1/ RN AM CLOSING NOTES ALL PT NEEDS MET. NO ACUTE CHANGE OF CONDITION THROUGHOUT THE SHIFT. PT ENDORSED TO PM NURSE TO COMPLETE DISCHARGE PROTOCOL. CL WITHIN REACH AND SAFETY MAINTAINED.
--- NOTE | 2019-06-16 19:30 | NUR ---
PM RN OPENING NOTES, RECEIVED PATIENT IN BED SLEEPING. ON TRACH WITH VENT SETTINGS TOLERATING WELL. O2 SATURATION @ 100%. ON TELE WITH SR. PATIENT IS OBTUNDED, OPENS EYES. NO RESPIRATION DISTRESS NOTED. NO PAIN NOTED. ONGOING NS IV INFUSION SET AT 75CC/HR IN RFA. JEVITY FEEDING ONGOING AT 65CC/HR. CATHETER IN PLACE WITH CLEAR YELLOW URINE. PATIENT IS COMFORTABLE AND SAFETY MAINTAINED. PATIENT WILL BE DISCHARGED TO [facility]. WILL CONTINUE TO MONITOR
[2019-06-16 20:00] VITALS: BP 126/83
--- NOTE | 2019-06-16 21:00 | NUR ---
RN NOTES, PATIENT VSS. NO ACUTE CHANGES. NO RESP. DISTRESS. NO PAIN. ALL IV WAS DISCONNECTED. JACOBSON WAS STILL CONNECTED. TRANSPORTERS TAKING PATIENT TO [facility] AT 2054. MOTHER WAS NOTIFIED.
--- NOTE | 2019-06-16 21:10 | NUR ---
DISCHARGE NOTE, PATIENTS BOTH IV REMOVED, JACOBSON IS IN GOOD CONDITION AND G-TUBE SITE IS CLEAR. PATIENT FAMILY NOTIFIED AND PATIENT VITAL SIGN ARE STABLE. NO ACUTE CHANGES, ALL PICTURES TAKEN AND PATIENT IS DISCHARGED TO [facility] AT 2054.
== END 2019-06-16 20:55 | DRG 130 ==
LOC: ER 22:03 → TELE-TD 06-11 00:08 → TELE1 06-12 10:14
PROVIDERS: ADMIT Internal Medicine; ATTEND Nurse Practitioner Acute Care
PROC: 5A1955Z Respiratory Ventilation, Greater than 96 Consecutive Hours (ICD-10-PCS; principal; 2019-06-11)
DX: J15.6 Pneumonia due to other Gram-negative bacteria (principal); N17.0 Acute kidney failure with tubular necrosis; J96.21 Acute and chronic respiratory failure with hypoxia; G93.41 Metabolic encephalopathy; E44.0 Moderate protein-calorie malnutrition; R53.2 Functional quadriplegia; R13.10 Dysphagia, unspecified; Z99.11 Dependence on respirator [ventilator] status; N39.0 Urinary tract infection, site not specified; E11.9 Type 2 diabetes mellitus without complications; Z93.1 Gastrostomy status; F32.9 Major depressive disorder, single episode, unspecified; G40.909 Epilepsy, unspecified, not intractable, without status epilepticus; Z87.01 Personal history of pneumonia (recurrent); N40.0 Benign prostatic hyperplasia without lower urinary tract symptoms; J44.9 Chronic obstructive pulmonary disease, unspecified; Y95 Nosocomial condition; I10 Essential (primary) hypertension
CPT/HCPCS: 31720; 36415; 71045-TC; 71250-TC; 80048-TC; 80076-TC; 80202-TC; 81000-TC; 82962-TC; 83605-TC; 83735-TC; 84100-TC; 85025-TC; 85730-TC; 87040-TC; 87081-TC; 87086-TC; 94002-TC; 94003-TC; 94760-TC; 94762-TC; 94799-TC; 99082-TC; A4216; A6248; A6403; A7526; G0378; J1815; J1953; J2543; J3370; J3475; J7030; J7040; J7050; J7060

== ENCOUNTER 2019-11-28 09:58 | Inpatient (IN) | payer MEDICAID ==
[~2019-11-28] VITALS: Ht 175.3 cm; Wt 56.2 kg
[~2019-11-28 09:58] MED LIST: ACET-2605 GT; ACET-868 GT; AMIN30LI2 GT; AMLO5TAB9 GT; ASCO-352 GT; Amox/Clavulanate PO; BACL10TA GT; BISA10SU11 RC; CHLO118L6 TP; CHLO473M3 MM; CRAN3875 PO; DOCU100C36 GT; FERR325T23 GT; HYDR100T27 GT; INSU100V28 SQ; IPRA3AMP23 IH; LACT-209 GT; LEVE500T9 GT; LORA-259 GT; MAGN400O6 GT; MULT-447 GT; NA P133E RC; NUT.237L25 GT; NUTR1PAC14 GT
[2019-11-28 10:20] LABS: BASOPHILS % (AUTO) 0.1 % (0.0-2.0); EOSINOPHILS % (AUTO) 0.1 % (0.0-6.0); HEMATOCRIT 39 % (39-51); HEMOGLOBIN 12.8 g/dL (13.5-17.5); LYMPHOCYTES # (AUTO) 0.1 /CMM (0.8-4.8); LYMPHOCYTES % (AUTO) 1.2 % (20.0-44.0); MEAN CORPUSCULAR HGB CONC 33 g/dl (31.0-36.0); MEAN CORPUSCULAR VOLUME 95 fL (80-96); MONOCYTES # (AUTO) 0.2 /CMM (0.1-1.30); MONOCYTES % (AUTO) 1.7 % (2.0-12.0); NEUTROPHILS # (AUTO) 12.1 /CMM (1.8-8.9); NEUTROPHILS % (AUTO) 96.9 % (43.0-81.0); PLATELET COUNT (AUTO) 160 /CMM (150-450); WHITE BLOOD COUNT (AUTO) 12.5 K/uL (4.3-11.0)
--- NOTE | 2019-11-28 10:20 | NUR ---
RT Pt was brought into ER by paramedics, pt is trached on mechanical ventilation. Pt was switched over to hospital ventilator with settings obtained from transport vent. Vent is plugged into red outlet. No SOB or respiratory distress noted. Addendum: 11/28/19 at 1031 by BETY CHAHAL RT Amended: Links added.
[2019-11-28] MEDS ORDERED: LACT-209 GT (10:24)
[2019-11-28] MEDS ORDERED: CEFEPIME 1 GM in IV D5W 50 ML IV ONE ×2 (10:30→13:00)
[2019-11-28] MEDS ORDERED: VANCOMYCIN 1 GM in IV D5W 250 ML IV ONE (10:30)
[2019-11-28] MEDS ORDERED: LORAZEPAM INJ 2 MG/ML VIAL IV ONE (10:30)
[2019-11-28] MEDS ORDERED: IV NS 0.9% 500 ML IV ONE (10:30)
[2019-11-28] MEDS ORDERED: TRAM50TA2 PO (10:34)
[2019-11-28 10:42] LABS: ALANINE AMINOTRANSFERASE 56 U/L (12-78); ALKALINE PHOSPHATASE 146 U/L (46-116); ASPARTATE AMINOTRANSFERASE 54 U/L (15-37); B-TYPE NATRIURETIC PEPTIDE 3655 PG/ML (0-125); BILIRUBIN,TOTAL 0.4 mg/dL (0.2-1.0); CARBON DIOXIDE 27 mmol/L (21-32); CHLORIDE 101 mmol/L (98-107); CREATININE 1.9 mg/dL (0.6-1.3); GLUCOSE 107 mg/dL (74-106); POTASSIUM 3.9 mmol/L (3.5-5.1); SODIUM SERUM 141 mmol/L (136-145); TOTAL PROTEIN, SERUM 7.6 g/dL (6.4-8.2); UREA NITROGEN, BLOOD 58 mg/dL (7-18)
[2019-11-28] MEDS ORDERED: ACETAMINOPHEN 650 MG/20.3 ML UDC ONE (10:57)
[2019-11-28] MEDS ORDERED: LORAZEPAM INJ 2 MG/ML VIAL ONE (10:58)
[2019-11-28] MEDS ORDERED: ACETAMINOPHEN 160 MG/5 ML GT ONE (11:00)
--- NOTE | 2019-11-28 11:00 | NUR ---
bib78, from snf, tachycardic, bs 105. PT NON VERBAL, EYES OPEN, PT PLACED ON VENT. PLACED ON DIMENSION WAREHOUSE SUPERVISOR, ST. PT SEEN & EVAL'D BY DR. JERNIGAN. MEDICATED PER ERMD ORDER, PT SAUL WELL. WILL CONT TO MONITOR.
--- NOTE | 2019-11-28 11:18 | NUR ---
CALLED ALFREDO ITS DR. PASTOR
[2019-11-28 11:20] LABS: C-REACTIVE PROTEIN 22.4 mg/dL (0.0-0.9); CREATINE KINASE, TOTAL 287 U/L (39-308); FERRITIN 481 ng/mL (8-388)
[2019-11-28] MEDS ORDERED: IV NS 0.9% 1,000 ML BAG IV ONE (11:30)
[2019-11-28 11:41] LABS: APPEARANCE,URINE Cloudy (CLEAR); BILIRUBIN,URINE Negative (NEGATIVE); BLOOD, URINE Large Ery/uL (NEGATIVE); COLOR,URINE Red (YELLOW); KETONES,URINE Trace (NEGATIVE); LEUKOCYTE ESTERASE ,URINE Large (NEGATIVE); NITRITE, URINE Negative (NEGATIVE); PH,URINE 8.5 (5.0-8.0); PROTEIN,URINE >=300 mg/dl (NEGATIVE); UGLUCOSE Negative (NEGATIVE); UROBILINOGEN,URINE 0.2 EU/dL (0.2)
[2019-11-28 12:09] LABS: BACTERIA,URINE Many /HPF (None Seen); RBC,URINE TOO NUMEROUS TO COUN /HPF (0-2); SQUAMOUS EPITHELIAL CELL,UR Few /HPF (None Seen); WBC,URINE 21-50 /HPF (0-3)
[2019-11-28 12:21] LABS: D-DIMER 33.6 mg/L(FEU (0.17-0.50)
[2019-11-28] MEDS ORDERED: IPRATROPIUM NEB FS 0.5 MG/2.5 ML AMPUL.NEB NEB PRN (12:30)
[2019-11-28] MEDS ORDERED: NA PHOS,M-B/NA PHOS,DI-BA 1 EA ENEMA RC PRN (12:30)
[2019-11-28] MEDS ORDERED: LORAZEPAM 1 MG TABLET GT PRN (12:30)
[2019-11-28] MEDS ORDERED: MAGNESIUM HYDROXIDE 30 ML UDC GT PRN (12:30)
[2019-11-28] MEDS ORDERED: INSULIN REGULAR, HUMAN 100 UNIT/ML 3 ML VIAL SQ PRN (12:30)
[2019-11-28] MEDS ORDERED: BISACODYL SUPP (10 MG) 10 MG/SUPP.RECT SUPP.RECT RC PRN (12:30)
[2019-11-28] MEDS ORDERED: ALBUTEROL FS 2.5 MG/0.5 ML VIAL.NEB NEB PRN (12:30)
[2019-11-28] MEDS ORDERED: ONDANSETRON HCL/PF 4 MG/2 ML VIAL IVP PRN (12:30)
[2019-11-28] MEDS ORDERED: Z GUARD REMEDY 2 OZ OINT TP PRN (12:30)
[2019-11-28 12:33] LABS: BILIRUBIN,DIRECT 0.1 mg/dL (0.0-0.2)
[2019-11-28] MEDS: hydrALAZINE HCL 50 MG TABLET PO SCH ×2 (13:00→16:15)
[2019-11-28] MEDS ORDERED: DEXTROSE 50%-WATER 50 ML DISP.SYRIN IV PRN (13:00)
[2019-11-28] MEDS: BACLOFEN (10 MG) 10 MG TABLET GT SCH ×2 (13:46→16:15)
[2019-11-28] MEDS ORDERED: FEE PK DOSING 1 MIN EA MC ONE (16:57)
[2019-11-28] MEDS ORDERED: HEPARIN SODIUM, PORCINE 5000 UNITS/1 ML VIAL SQ SCH (17:00)
[2019-11-28] MEDS ORDERED: ARGININE/GLUTAMINE/CALCIUM BMB 1 EACH POWD.PACK GT SCH (17:00)
[2019-11-28] MEDS ORDERED: IV NS 0.9% 1,000 ML IV ONE (17:30)
[2019-11-28] MEDS: HEPARIN SODIUM, PORCINE 5000 UNITS/1 ML VIAL SQ SCH (17:39)
[2019-11-28] MEDS: BLOOD SUGAR DIAGNOSTIC 1 EACH STRIP IN SCH (18:00)
[2019-11-28] MEDS: JEVITY 1.2 CAL 1,000 ML BOTTLE GT SCH (18:01)
[2019-11-28 18:19] LABS: C-REACTIVE PROTEIN 25.6 mg/dL (0.0-0.9)
--- NOTE | 2019-11-28 19:06 | NUR ---
LEONIDES CLOSING NOTES PT IS RESTING IN BED. ALERT AND ORIENTED X1, UNABLE TO SPEAK. PT IS ON VENT MACHINE. PT HAS MANY WOUNDS: MEDIUM SACRAL, COCCYX, RIGHT HEEL. FOLLOW WOUND TREATMENT ORDERS. RIGHT UPPER IV WELL FLUSHED AND INTACT. SAFETY MEASURES ARE TAKEN. BED IN THE LOWEST POSITION. SIDE RAILSX2. CALL LIGHT WITHIN REACH. PT BP WAS IN LOWER SIDE DOCTOR ORDERED BOLUS. PT HAS GT TUBE FEEDING ON JENITA 20 ML/HOUR PT IS ENDORSED TO RANCH HELPER FOR JENNY.
[2019-11-28 20:00] VITALS: BP 100/67
[2019-11-28 20:18] VITALS: BP 100/67
[2019-11-28] MEDS: CHLORHEXIDINE GLUCONATE 15 ML UDC MM SCH (20:53)
[2019-11-28] MEDS: LEVETIRACETAM (250 MG) 250 MG TABLET PO SCH (20:53)
[2019-11-28 21:40] VITALS: BP 95/69
[2019-11-28] MEDS: HYDROCODONE/APAP 5/325MG 1 EACH TABLET PO PRN (21:59)
--- NOTE | 2019-11-28 22:00 | NUR ---
PRN NORCO: UTILIZED KIM ELIZALDE SCALE, PS 4/7 OBTAINED, ALSO WILL BE DOING WOUND CARE, PRN NORCO 5/325 MG ADMINISTERED AT THIS TIME.
[2019-11-28] MEDS: IV NS 0.9% 1,000 ML IV PRN (23:41)
[2019-11-29] VITALS (12 sets, daily range): BP systolic 93–136; BP diastolic 52–68
[2019-11-29] MEDS: BLOOD SUGAR DIAGNOSTIC 1 EACH STRIP IN SCH ×6 (00:09→17:03)
--- NOTE | 2019-11-29 00:12 | NUR ---
rn notes/stat lab glucose: called lab for stat glucose random per hypoglycemia protocol
--- NOTE | 2019-11-29 00:13 | NUR ---
rn notes/hypoglycemia: fingerstick blood glucose draw using left index finger performed and result obtained is 53, decided to recheck again, using right index finger, result obtained is 73, decided to recheck using right middle finger, and result obtained is 60. at 0004 d50 ivp administered per htypoglycemia protocol. pt is [facility] vent trache dependent, on jevity gtube feeding at 75ml/hr. will recheck blood glucose in 15mins which is 0020, then an hour post d50 administration.
--- NOTE | 2019-11-29 00:26 | NUR ---
RN NOTES:BLOOD GLUCOSE 15MINS POST D50: FINGERSTICK BLOOD GLUCOSE CHECK PERFORMED 15MINS POST D50 ADMINISTRATION, RESULT IS 139, NO INSULIN COVERAGE GIVEN.
--- NOTE | 2019-11-29 00:41 | NUR ---
rn notes/reassessment d50: fingerstick blood glucose check performed, result obtained is 140. labor commissioner came to draw blood for random glucose
--- NOTE | 2019-11-29 02:22 | NUR ---
rn notes/blood culture prelim: received call from davey from lab, prelim blood culture result shows BLOOD CULTURE Preliminary 11/29/19-0154 GRAM NEGATIVE RODS SEEN ON GRAM STAIN BOTH BOTTLES OF SET spoked with hospitalist kenna guerra stationary engineer apprentice, pt on vanco 1gm q18hrs and cefepime 2gm iv q24hr, no new orders per md
[2019-11-29] MEDS ORDERED: VANCOMYCIN 1 GM in IV D5W 250 ML IV SCH (05:00)
[2019-11-29] MEDS: INSULIN REGULAR, HUMAN 100 UNIT/ML 3 ML VIAL SQ PRN (05:46)
--- NOTE | 2019-11-29 06:43 | NUR ---
end of shift report: received report from deshawn bradshaw at 1910 last night. pt is [facility] vent trache dependent with the ff setting, simv 6, portex#7, fiio2 40%, peep 5, pt connected on continuous pulse oximetry, ambu bag available at bed side, clinical alarms check and audible. on r/o covid, ppe and faceshield utilized, on isolation droplet-contact. pt is obtunded. has right ac g 18 iv access patent and flushing well, infusing with ns at 75ml/hr. no s/s of iv infiltration noted. has peg, patent and easily flushing well with water, receiving jevity at 75ml/hr. episode of hypoglycemia at midnight, given d50 ivp, stat random glucose check ordered, hypoglycemia protocol followed. latest blood glucose for 0600am is 73. fatima catheter remains in placed, hematuria noted at the beginning of the shift which clearing up now. bag draining via gravity. remains afebrile.had 2 episode of soft bm. sinus tachycardia hr ranging 101-120 . ble kept offloaded on pillows. suction set up secured. vs remains stable, needs attended. safety precautions for fall remains engaged, call light in reach, will endorse to day rn for continuity of care.
[2019-11-29] MEDS: PANTOPRAZOLE 40 MG TABLET.DR PO SCH (07:36)
--- NOTE | 2019-11-29 08:15 | NUR ---
STRATEGIC ACCOUNT EXECUTIVE OPENING NOTES. RECEIVED PT OBTUNDED, HOB ELEVATED, MECH VENT DEPENDENT, RT ON BEDSIDE - PORTEX #7, TV 400, FIO2 40%, PEEP 5, SATING 100%, CLINICAL ALARM FUNCTIONING. ABD SOFT AND NON DISTENDED, FC IN PLACE WITH MEDIUM YELLOW COLOR, G-TUBE DRESSING CLEAN, 0ML RESIDUAL, PLACEMENT CHECKED VIA AUSCULTATION, ON JEVITY 1.2 AT 75 ML/HR X 20 HOURS. TURNED OFF AT THIS TIME. SKIN WARM TO TOUCH AND DRY, BLE OFFLOAD. IV SITE AT RIGHT FA RUNNING NS AT 75 ML/HR. BED IN LOW LOCKED POSITION, SR X3 FOR SAFETY. TELE MONITOR SHOWS SINUS TACHYCARDIA 103. WILL CONTINUE TO MONITOR PATIENT'S CONDITION.
--- NOTE | 2019-11-29 08:17 | NUR ---
COPING MACHINE ASSEMBLER NOTES PT ON CONTACT/DROPLET ISOLATION DUE TO R/O COVID, TEST PENDING.
[2019-11-29] MEDS: DOCUSATE SODIUM 100 MG CAPSULE PO SCH (08:18)
[2019-11-29] MEDS: CHLORHEXIDINE GLUCONATE 15 ML UDC MM SCH ×2 (08:19→20:15)
[2019-11-29] MEDS: ASCORBIC ACID 500 MG TABLET GT SCH (08:19)
[2019-11-29] MEDS: BACLOFEN (10 MG) 10 MG TABLET GT SCH ×3 (08:19→16:55)
[2019-11-29] MEDS: FERROUS SULFATE (325 MG) 325 MG/TAB TABLET GT SCH (08:19)
[2019-11-29] MEDS: hydrALAZINE HCL 50 MG TABLET PO SCH ×3 (08:19→16:55)
[2019-11-29] MEDS: LEVETIRACETAM (250 MG) 250 MG TABLET PO SCH ×2 (08:19→20:15)
[2019-11-29] MEDS: HEPARIN SODIUM, PORCINE 5000 UNITS/1 ML VIAL SQ SCH ×2 (08:20→20:19)
[2019-11-29 09:20] LABS: BASOPHILS % (AUTO) 0.1 % (0.0-2.0); EOSINOPHILS % (AUTO) 0.5 % (0.0-6.0); HEMATOCRIT 31 % (39-51); HEMOGLOBIN 10.1 g/dL (13.5-17.5); LYMPHOCYTES # (AUTO) 0.9 /CMM (0.8-4.8); LYMPHOCYTES % (AUTO) 3.7 % (20.0-44.0); MEAN CORPUSCULAR HGB CONC 33 g/dl (31.0-36.0); MEAN CORPUSCULAR VOLUME 95 fL (80-96); MONOCYTES # (AUTO) 0.9 /CMM (0.1-1.30); MONOCYTES % (AUTO) 3.6 % (2.0-12.0); NEUTROPHILS % (AUTO) 92.1 % (43.0-81.0); PLATELET COUNT (AUTO) 106 /CMM (150-450); RED BLOOD CELL COUNT(AUTO) 3.23 MIL/uL (4.5-6.0); WHITE BLOOD COUNT (AUTO) 23.8 K/uL (4.3-11.0)
[2019-11-29 09:45] LABS: CALCIUM, SERUM 8.6 mg/dL (8.5-10.1); CREATININE 0.7 mg/dL (0.6-1.3); MAGNESIUM 2.1 mg/dL (1.8-2.4); PHOSPHORUS 2.6 mg/dL (2.5-4.9)
[2019-11-29 09:58] LABS: THYROID STIMULATING HORMONE 1.555 uIU/mL (0.358-3.74)
[2019-11-29 10:17] LABS: BAND % (MANUAL) 23 % (0.0-5.0); EOSINOPHILS % (MANUAL) 1 % (0-4); LYMPHOCYTES % (MANUAL) 4 % (16-48); METAMYELOCYTES % 1 % (0-0); MONOCYTES % (MANUAL) 4 % (0-11.0); NEUTROPHILS % (MANUAL) 67 (42-76)
[2019-11-29] MEDS: CEFEPIME 2 GM in IV D5W 100 ML IV SCH (10:54)
[2019-11-29] MEDS: JEVITY 1.2 CAL 1,000 ML BOTTLE GT SCH (12:02)
[2019-11-29] MEDS: VANCOMYCIN 0.75 GM in IV D5W 250 ML IV SCH ×2 (13:16→21:00)
[2019-11-29] MEDS: IV NS 0.9% 1,000 ML IV PRN (13:18)
[2019-11-29] MEDS: ACETAMINOPHEN 325 MG TABLET PO PRN (16:55)
--- NOTE | 2019-11-29 16:57 | NUR ---
PROJECT SAFETY MANAGER NOTES TYLENOL 650 MG TAB GT ADMINISTERED FOR PRE-WOUND TREATMENT. WAITING FOR WOUND CONSULT
--- NOTE | 2019-11-29 18:03 | NUR ---
follow up covid result still pending.
--- NOTE | 2019-11-29 18:47 | NUR ---
GELATIN DYNAMITE PACKING OPERATOR CLOSING NOTES PT OBTUNDED, A MECH VENT DEPENDENT, CLINICALLY ALARM FUNCTIONING, HOB ELEVATED , SATING 100%. ABD SOFT AND NON DISTENDED, FC IN PLACE WITH YELLOW COLOR, EMPTIED 1100CC. BM X1 SOFT BROWN. G-TUBE DRESSING CLEAN, 0ML RESIDUAL, PLACEMENT CHECKED VIA AUSCULTATION, ON JEVITY 1.2 AT 75 ML/HR X 20 HOURS. SKIN WARM TO TOUCH AND DRY, BLE OFFLOAD. IV SITE AT RIGHT FA RUNNING NS AT 75 ML/HR. BED IN LOW LOCKED POSITION, SR X3 FOR SAFETY. TELE MONITOR SHOWS SINUS TACHYCARDIA 130. LAST TEMP 1830 AT 99.3F. ON CONTACT ISOLATION DUE TO R/O COVID19. ENDORSED PT CARE TO NEXT SHIFT.
--- NOTE | 2019-11-29 19:30 | NUR ---
ELECTRICAL PROJECT ENGINEER NOTES RECEIVED PATIENT IN BED OBTUNDED. ON VENT SETTING TOLERATING WELL ORDERED. SATURATING 100%. RESPIRATION EVEN NON LABORED. TELE MONITOR READING ST IN 120'S AT THIS TIME. ON GTF TOLERATING WELL NO RESIDUAL NOTED. IV SITE ON RFA PATENT INTACT FLUSHING WELL. ABD SOFT AND NON DISTENDED. F/C INTACT URINE RUNNING WELL TO GRAVITY. CONTINUES ON CONTACT/DROPLET ISOLATION DUE TO R/O COVID19. SAFETY MEASURES IN PLACE, BED IN LOW AND LOCKED POSITION. SIDE RAILS UP X2. CALL LIGHT WITHIN REACH. WILL CONT TO MONITOR.
[2019-11-30] VITALS (7 sets, daily range): BP systolic 120–139; BP diastolic 72–83
[2019-11-30] MEDS: BLOOD SUGAR DIAGNOSTIC 1 EACH STRIP IN SCH ×4 (00:11→17:53)
[2019-11-30 04:11] LABS: BASOPHILS # (AUTO) 0.1 /CMM (0.0-0.2); BASOPHILS % (AUTO) 0.4 % (0.0-2.0); EOSINOPHILS % (AUTO) 0.9 % (0.0-6.0); HEMATOCRIT 30 % (39-51); HEMOGLOBIN 9.8 g/dL (13.5-17.5); LYMPHOCYTES # (AUTO) 1.3 /CMM (0.8-4.8); LYMPHOCYTES % (AUTO) 5.5 % (20.0-44.0); MEAN CORPUSCULAR HGB CONC 33 g/dl (31.0-36.0); MEAN CORPUSCULAR VOLUME 94 fL (80-96); MONOCYTES # (AUTO) 0.8 /CMM (0.1-1.30); MONOCYTES % (AUTO) 3.4 % (2.0-12.0); NEUTROPHILS # (AUTO) 21.2 /CMM (1.8-8.9); NEUTROPHILS % (AUTO) 89.8 % (43.0-81.0); PLATELET COUNT (AUTO) 129 /CMM (150-450); RED BLOOD CELL COUNT(AUTO) 3.19 MIL/uL (4.5-6.0); WHITE BLOOD COUNT (AUTO) 23.6 K/uL (4.3-11.0)
[2019-11-30] MEDS: IV NS 0.9% 1,000 ML IV PRN (04:27)
[2019-11-30 04:29] LABS: CALCIUM, SERUM 8.9 mg/dL (8.5-10.1); CREATININE 0.6 mg/dL (0.6-1.3); MAGNESIUM 1.5 mg/dL (1.8-2.4); PHOSPHORUS 1.5 mg/dL (2.5-4.9); POTASSIUM 4.2 mmol/L (3.5-5.1)
[2019-11-30] MEDS: VANCOMYCIN 0.75 GM in IV D5W 250 ML IV SCH ×3 (05:00→21:37)
[2019-11-30] MEDS: JEVITY 1.2 CAL 1,000 ML BOTTLE GT SCH ×2 (05:47→15:56)
--- NOTE | 2019-11-30 06:40 | NUR ---
RETAIL INTERIOR DESIGNER NOTES PATIENT RESTED WELL NO S/S OF ACUTE DISTRESS NOTED. VENT SETTING TOLERATING WELL ORDERED. TELE MONIOTR READING 90. IV SITES INTACT PATENT FLUSHING WELL. ISOLATION PRECAUTIONS MAINTAINED. SAFETY MEASURES IN PLACE, BED IN LOW AND LOCKED POSITION. SIDE RAILS UP X2. CALL LIGHT WITHIN REACH. WILL ENDORSE TO AM NURSE FOR JENNY.
--- NOTE | 2019-11-30 07:05 | NUR ---
PLACING JUDGE NOTES RECEIVED PATIENT ON BED OBTUNDED.VENT/TRACH DEPENDENT, TOLERATING CURRENT VENT SETTING WELL, ON TELE MONITOR ST HR IN 100'S , ON GTF GEVITY AT 75CC/HR RUNNING VIA GT ,TOLERATING WELL NO RESIDUAL NOTED. IV SITES ON RFA PATENT INTACT FLUSHING WELL. F/C INTACT URINE RUNNING WELL TO GRAVITY. CONTINUES ON CONTACT/DROPLET ISOLATION DUE TO R/O COVID19. SAFETY MEASURES IN PLACE, BED IN LOW AND LOCKED POSITION. SIDE RAILS UP X3. CALL LIGHT WITHIN REACH. CONT TO MONITOR.
[2019-11-30] MEDS: ASCORBIC ACID 500 MG TABLET GT SCH (08:33)
[2019-11-30] MEDS: FERROUS SULFATE (325 MG) 325 MG/TAB TABLET GT SCH (08:33)
[2019-11-30] MEDS: DOCUSATE SODIUM 100 MG CAPSULE PO SCH (08:33)
[2019-11-30] MEDS: LEVETIRACETAM (250 MG) 250 MG TABLET PO SCH ×2 (08:33→21:37)
[2019-11-30] MEDS: CHLORHEXIDINE GLUCONATE 15 ML UDC MM SCH ×2 (08:34→21:37)
[2019-11-30] MEDS: BACLOFEN (10 MG) 10 MG TABLET GT SCH ×3 (08:34→16:18)
[2019-11-30] MEDS: PANTOPRAZOLE 40 MG TABLET.DR PO SCH (08:34)
[2019-11-30] MEDS: hydrALAZINE HCL 50 MG TABLET PO SCH ×3 (08:35→16:18)
[2019-11-30] MEDS: HEPARIN SODIUM, PORCINE 5000 UNITS/1 ML VIAL SQ SCH ×2 (08:36→21:40)
--- NOTE | 2019-11-30 09:32 | NUR ---
WOUND CARE CONSULT: REVIEWED CHART, NURSING DOCUMENTATION AND MULTIPLE PHOTOS WHICH SHOW WOUNDS, PRESENT ON ADMISSION. RECOMMEND SURGICAL AND DPM CONSULTS. DR DARBY MCKENNA AND DR QUINONES NOTIFIED OF CONSULT REQUESTS. PT IS ON MICHAELA ISOFLEX LOW AIRLOSS BED. ALL SKIN PROTECTION AND WOUND CARE RECOMMENDATIONS DISCUSSED WITH NURSING STAFF. DEFER TO DPM FOR LOWER EXTREMITIES. WILL SEE PRN. IN AGREEMENT WITH PLAN OF CARE.
[2019-11-30] MEDS: Magnesium 1GM/D5W 100ML PREMIX 100 ML IV SCH ×3 (09:55→12:40)
[2019-11-30] MEDS ORDERED: Sodium Phosphate 15 MMOL in IV NS 0.9% 245 ML IV SCH (10:00)
[2019-11-30] MEDS: PROSOURCE / PROSTAT (PYXIS) 30 ML UDC GT SCH ×2 (10:48→16:18)
[2019-11-30] MEDS: DAKINS QUARTER STRENGTH (0.125%) 480 ML BOTTLE TOP SCH (11:58)
[2019-11-30] MEDS: CEFEPIME 2 GM in IV D5W 100 ML IV SCH (11:58)
--- NOTE | 2019-11-30 12:00 | NUR ---
RN NOTES PT IS COVID 19 NEGATIVE , DR PASTOR NOTIFIED .
[2019-11-30] MEDS: INSULIN REGULAR, HUMAN 100 UNIT/ML 3 ML VIAL SQ PRN (12:41)
[2019-11-30] MEDS: HYDROCODONE/APAP 5/325MG 1 EACH TABLET PO PRN (16:18)
--- NOTE | 2019-11-30 18:00 | NUR ---
RN NOTES PT STABLE , TOLERATING VENT SETTING WELL, ON TELE SR- ST, NO TF RESIDUAL NOTED, WOUND CARE DONE, NS AT 75CC/HR RUNNING , SR UP X3, CALL LIGHT WITHIN EASY REACH, BED LOCKED AND IN LOWEST POSITION, WILL ENDORSE TO PLATFORM LOADER NURSE FOR CONTINUITY OF CARE .
--- NOTE | 2019-11-30 19:10 | NUR ---
RN OPENING NOTES: Received pt in bed, obtunded. On mechanical ventilation tolerating well. No respiratory distress or SOB noted. SR/ST on tele monitor. RFA #18 patent and flushing with NS running at 75ml/hr, tolerating well. Dressing c/d/i. GTF of Jevity 1.2 running at 75ml/hr. Tolerating well. GT site flushed and patent with no residual noted. Safety measures in place. Will continue to monitor.
--- NOTE | 2019-11-30 19:59 | NUR ---
RN NOTE: Gave report to CARLEE Clemente for JENNY. Pt to be transferred to room 322-2.
--- NOTE | 2019-11-30 20:30 | NUR ---
DONATION WORKER OPENING NOTE RECEIVED PATIENT VIA BED FROM LEONIDES DENTAL SURGEON, PRIMARY RN AND RT. PATIENT IS NONVERBAL, OBTUNDED. ON MECHANICAL VENTILATOR : PORTEX#7 SIMV:6 TV:400 FIO2: 40% PEEP 5. NO S/S RESPIRATORY DISTRESS. NO S/S PAIN AT THIS TIME. EXTERNAL TELE MONITOR READS SINUS TACHYCARDIA HR 101. IN NO APPARENT DISTRESS. IV ACCESS IN RFA #18 RUNNING NS@75ML/HR. GTUBE IS PRESENT, ASPIRATED, NO RESIDUAL, FLUSHED WITH NO RESISTANCE, FEEDING JEVITY 1.2@75ML/HR. JACOBSON CATHETER IS PRESENT DRAINING TO GRAVITY, URINE IS YELLOW AND CLEAR. NO PICTURES TAKEN, LAST PHOTOS IN CHART ARE FROM 0000 11/30/19 WHICH IS TODAY, COMPARED TO MY SKIN ASSESSMENT, NO CHANGES NOTED. BED IS LOW AND LOCKED, HOB ELEVATED IN SEMI FOWLERS, SIDE RIALS UPX2, ON SPECIAL MATRASS, EXTREMITIES OFFLOADED. CALL LIGHT WITHIN REACH. WILL CONTINUE TO MONITOR.
--- NOTE | 2019-11-30 20:35 | NUR ---
RN NOTE: Transferred pt to 322-2 per ACLS protocols with RT and CN.
--- NOTE | 2019-11-30 23:29 | NUR ---
BUNDLE TIER NOTE RECEIVED A CRITICAL LAB FROM [facility]. LAB REPORTED IS GRAM POSITIVE COCCIN CHAIN. READ BACK AND NOTED. INFORMED CHARGE NURSE OF RESULT AND NO SENSITIVE REPORT NOTED AT THIS ITME. PATIENT IS ALREADY ON ANTIBIOTICS:VANCOMYCIN AND MAXIPIME. PER FIELD RESEARCH ASSOCIATE NO NEED TO CALL MD AT THIS TIME. WILL CONTINUE TO MONITOR.
[2019-12-01] VITALS (7 sets, daily range): BP systolic 114–129; BP diastolic 57–74
[2019-12-01] MEDS: IV NS 0.9% 1,000 ML IV PRN (02:59)
[2019-12-01] MEDS: VANCOMYCIN 0.75 GM in IV D5W 250 ML IV SCH ×3 (05:09→20:38)
[2019-12-01] MEDS: BLOOD SUGAR DIAGNOSTIC 1 EACH STRIP IN SCH ×5 (05:09→23:17)
[2019-12-01] MEDS: JEVITY 1.2 CAL 1,000 ML BOTTLE GT SCH ×2 (06:16→23:38)
--- NOTE | 2019-12-01 06:39 | NUR ---
PHYSICAL THERAPIST CENTER MANAGER CLOSING NOTE PATIENT IN BED. PATIENT IS NONVERBAL, OBTUNDED. ON MECHANICAL VENTILATOR : PORTEX#7 SIMV:6 TV:400 FIO2: 40% PEEP 5. NO RESPIRATORY DISTRESS. NO PAIN. EXTERNAL TELE MONITOR READS SINUS TACHYCARDIA HR 108. NO DISTRESS. IV ACCESS MAINTAINED IN RFA #18 RUNNING NS@75ML/HR. GTUBE IS MAINTAINED, FEEDING JEVITY 1.2@75ML/HR. JACOBSON CATHETER IS MAINTAINED DRAINING TO GRAVITY, URINE IS YELLOW AND CLEAR OUTPUT 1300. . BED REMAINS LOW AND LOCKED, HOB ELEVATED IN SEMI FOWLERS, SIDE RIALS UPX2, ON SPECIAL MATRASS, EXTREMITIES OFFLOADED. CALL LIGHT WITHIN REACH. WILL ENDORSE TO NEXT SHIFT.
--- NOTE | 2019-12-01 07:30 | NUR ---
Tele/RN Opening Received patient in bed, able to responds physical stimuli. Does no appears pain or discomfort, skin is warm to touch, kept clean/dry, changed g-tube dressing, no residual g-tube at this time. Patient on ventilator, respiratory even and unlabored, no distress observed. Keep bed in lock with low position and elevated head of bed for secure airway. Call light within reach, will continue to monitor.
[2019-12-01] MEDS: PANTOPRAZOLE 40 MG TABLET.DR PO SCH (07:43)
[2019-12-01 08:37] LABS: BASOPHILS % (AUTO) 0.1 % (0.0-2.0); EOSINOPHILS % (AUTO) 0.7 % (0.0-6.0); HEMATOCRIT 28 % (39-51); HEMOGLOBIN 9.4 g/dL (13.5-17.5); LYMPHOCYTES # (AUTO) 1.7 /CMM (0.8-4.8); MEAN CORPUSCULAR HGB CONC 34 g/dl (31.0-36.0); MEAN CORPUSCULAR VOLUME 93 fL (80-96); MONOCYTES # (AUTO) 1.1 /CMM (0.1-1.30); MONOCYTES % (AUTO) 5.2 % (2.0-12.0); PLATELET COUNT (AUTO) 119 /CMM (150-450); RED BLOOD CELL COUNT(AUTO) 2.97 MIL/uL (4.5-6.0)
[2019-12-01] MEDS: HEPARIN SODIUM, PORCINE 5000 UNITS/1 ML VIAL SQ SCH ×2 (08:38→20:41)
[2019-12-01] MEDS: CHLORHEXIDINE GLUCONATE 15 ML UDC MM SCH ×2 (08:38→20:38)
[2019-12-01] MEDS: BACLOFEN (10 MG) 10 MG TABLET GT SCH ×3 (08:40→17:12)
[2019-12-01] MEDS: ACETAMINOPHEN 325 MG TABLET PO PRN ×2 (08:40→23:23)
[2019-12-01] MEDS: ASCORBIC ACID 500 MG TABLET GT SCH (08:40)
[2019-12-01] MEDS: FERROUS SULFATE (325 MG) 325 MG/TAB TABLET GT SCH (08:40)
[2019-12-01] MEDS: LEVETIRACETAM (250 MG) 250 MG TABLET PO SCH ×2 (08:40→20:38)
[2019-12-01 08:41] LABS: CALCIUM, SERUM 8.9 mg/dL (8.5-10.1); CREATININE 0.7 mg/dL (0.6-1.3); MAGNESIUM 1.4 mg/dL (1.8-2.4); PHOSPHORUS 2.1 mg/dL (2.5-4.9); POTASSIUM 3.9 mmol/L (3.5-5.1)
[2019-12-01] MEDS: DOCUSATE SODIUM 100 MG CAPSULE PO SCH (08:41)
[2019-12-01] MEDS: hydrALAZINE HCL 50 MG TABLET PO SCH ×3 (08:41→17:12)
[2019-12-01] MEDS: DAKINS QUARTER STRENGTH (0.125%) 480 ML BOTTLE TOP SCH (08:44)
[2019-12-01] MEDS: PROSOURCE / PROSTAT (PYXIS) 30 ML UDC GT SCH ×2 (08:44→17:11)
[2019-12-01 10:30] LABS: BAND % (MANUAL) 3 % (0.0-5.0); EOSINOPHILS % (MANUAL) 1 % (0-4); LYMPHOCYTES % (MANUAL) 4 % (16-48); MONOCYTES % (MANUAL) 2 % (0-11.0); NEUTROPHILS % (MANUAL) 90 (42-76)
[2019-12-01] MEDS: CEFEPIME 2 GM in IV D5W 100 ML IV SCH ×2 (11:23→23:17)
[2019-12-01] MEDS: Magnesium 1GM/D5W 100ML PREMIX 100 ML IV SCH ×4 (11:53→15:04)
[2019-12-01] MEDS ORDERED: NEUTRA PHOS 1 POWD.PACKET NG ONE (14:00)
[2019-12-01] MEDS: INSULIN REGULAR, HUMAN 100 UNIT/ML 3 ML VIAL SQ PRN (17:13)
--- NOTE | 2019-12-01 18:50 | NUR ---
Tele/RN Closing note Patient in bed comfortably, deos no appears pain, or discomfort, skin is warm to touch, keep clean/dry, intact IV site, dressing changed and still pending wound Cx, no residual g tube. Respiratory even and unlabored on venting machine. Keep bed in lock wheel with low position and elevated head of bed for secure airway. Call light within reach, will endorse date night sitter.
--- NOTE | 2019-12-01 19:30 | NUR ---
QUALITY ASSURANCE COACH OPENING NOTE RECEIVED PATIENT IN BED. PATIENT IS NONVERBAL, OBTUNDED. ON MECHANICAL VENTILATOR : PORTEX#7 SIMV:6 TV:400 FIO2: 40% PEEP 5. NO S/S RESPIRATORY DISTRESS. NO S/S PAIN AT THIS TIME. EXTERNAL TELE MONITOR READS SINUS RHYTHM HR 99. IN NO APPARENT DISTRESS. IV ACCESS IN RFA PATENT AND SALINE LOCKED. GTUBE IS PRESENT, ASPIRATED, NO RESIDUAL, FLUSHED WITH NO RESISTANCE, FEEDING JEVITY 1.2@75ML/HR. JACOBSON CATHETER IS PRESENT DRAINING TO GRAVITY, URINE IS YELLOW AND CLEAR. BED IS LOW AND LOCKED, HOB ELEVATED IN SEMI FOWLERS, SIDE RIALS UPX2, ON SPECIAL MATRASS, EXTREMITIES OFFLOADED. CALL LIGHT WITHIN REACH. WILL CONTINUE TO MONITOR.
--- NOTE | 2019-12-01 23:33 | NUR ---
telepathist note administered prn tylenol 650mg for temp 100.8. will continue to monitor
[2019-12-02] VITALS (7 sets, daily range): BP systolic 130–156; BP diastolic 79–88
--- NOTE | 2019-12-02 03:29 | NUR ---
telehealth nurse note reassess Tylenol when temp was 100.8. temp is now 100. removed all unnecessary linen. turned room AC on. will give cold bath and place ice packs on patient.
[2019-12-02] MEDS: VANCOMYCIN 0.75 GM in IV D5W 250 ML IV SCH ×3 (04:13→21:05)
[2019-12-02] MEDS: ACETAMINOPHEN 325 MG TABLET PO PRN ×2 (05:34→17:04)
[2019-12-02] MEDS: BLOOD SUGAR DIAGNOSTIC 1 EACH STRIP IN SCH ×4 (05:34→23:44)
--- NOTE | 2019-12-02 05:34 | NUR ---
television news producer note administered prn Tylenol 650mg for temp 99.1. will continue to monitor and endorse to next shift
--- NOTE | 2019-12-02 06:31 | NUR ---
LOGISTICS TEAM LEAD CLOSING NOTE PATIENT IN BED. PATIENT IS NONVERBAL, OBTUNDED. ON MECHANICAL VENTILATOR : PORTEX#7 SIMV:6 TV:400 FIO2: 40% PEEP 5. NO RESPIRATORY DISTRESS. NO PAIN. EXTERNAL TELE MONITOR READS SR - ST HR RANGING FROM 96-108. NO DISTRESS. IV ACCESS MAINTAINED IN RAC#18 AND RFA#24 BOTH PATENT AND SALINE LOCKED. GTUBE IS MAINTAINED, FEEDING JEVITY 1.2@75ML/HR. JACOBSON CATHETER IS MAINTAINED DRAINING TO GRAVITY, URINE IS YELLOW AND CLEAR OUTPUT 1300. BED REMAINS LOW AND LOCKED, HOB ELEVATED IN SEMI FOWLERS, SIDE RIALS UPX2, ON SPECIAL MATRASS, EXTREMITIES OFFLOADED. CALL LIGHT WITHIN REACH. WILL ENDORSE TO NEXT SHIFT.
[2019-12-02 07:04] LABS: BASOPHILS % (AUTO) 0.2 % (0.0-2.0); EOSINOPHILS % (AUTO) 1.1 % (0.0-6.0); HEMATOCRIT 29 % (39-51); HEMOGLOBIN 9.8 g/dL (13.5-17.5); LYMPHOCYTES # (AUTO) 1.8 /CMM (0.8-4.8); LYMPHOCYTES % (AUTO) 9.9 % (20.0-44.0); MEAN CORPUSCULAR HGB CONC 34 g/dl (31.0-36.0); MEAN CORPUSCULAR VOLUME 93 fL (80-96); MONOCYTES # (AUTO) 1.4 /CMM (0.1-1.30); MONOCYTES % (AUTO) 7.6 % (2.0-12.0); NEUTROPHILS # (AUTO) 15.1 /CMM (1.8-8.9); NEUTROPHILS % (AUTO) 81.2 % (43.0-81.0); PLATELET COUNT (AUTO) 142 /CMM (150-450); RED BLOOD CELL COUNT(AUTO) 3.14 MIL/uL (4.5-6.0); WHITE BLOOD COUNT (AUTO) 18.6 K/uL (4.3-11.0)
[2019-12-02 07:25] LABS: CREATININE 0.6 mg/dL (0.6-1.3); POTASSIUM 4.2 mmol/L (3.5-5.1)
--- NOTE | 2019-12-02 07:30 | NUR ---
Tele/RN Opening note Received patient in bed, able to responds physical stimuli, skin is warm to touch, clean/dry, intact IV site. Pt. does no appears pain or any discomfort. Respiratory even and unlabored with ventilator. Keep bed in lock with low position of the bed and elevated head of bed foe secure airway. Call light within reach, will continue to monitor.
[2019-12-02 07:36] LABS: MAGNESIUM 1.6 mg/dL (1.8-2.4); PHOSPHORUS 3.6 mg/dL (2.5-4.9)
[2019-12-02] MEDS: PANTOPRAZOLE 40 MG TABLET.DR PO SCH (07:50)
[2019-12-02 07:56] LABS: BAND % (MANUAL) 3 % (0.0-5.0); EOSINOPHILS % (MANUAL) 2 % (0-4); LYMPHOCYTES % (MANUAL) 7 % (16-48); MONOCYTES % (MANUAL) 4 % (0-11.0); MYELOCYTES % 1 % (0-0); NEUTROPHILS % (MANUAL) 83 (42-76)
[2019-12-02] MEDS: PROSOURCE / PROSTAT (PYXIS) 30 ML UDC GT SCH ×2 (09:08→17:20)
[2019-12-02] MEDS: CHLORHEXIDINE GLUCONATE 15 ML UDC MM SCH ×2 (09:08→21:05)
[2019-12-02] MEDS: ASCORBIC ACID 500 MG TABLET GT SCH (09:09)
[2019-12-02] MEDS: FERROUS SULFATE (325 MG) 325 MG/TAB TABLET GT SCH (09:09)
[2019-12-02] MEDS: DOCUSATE SODIUM 100 MG CAPSULE PO SCH (09:09)
[2019-12-02] MEDS: hydrALAZINE HCL 50 MG TABLET PO SCH ×3 (09:09→17:20)
[2019-12-02] MEDS: BACLOFEN (10 MG) 10 MG TABLET GT SCH ×3 (09:10→17:20)
[2019-12-02] MEDS: HEPARIN SODIUM, PORCINE 5000 UNITS/1 ML VIAL SQ SCH ×2 (09:10→21:00)
[2019-12-02] MEDS: LEVETIRACETAM (250 MG) 250 MG TABLET PO SCH ×2 (09:10→21:05)
[2019-12-02] MEDS: DAKINS QUARTER STRENGTH (0.125%) 480 ML BOTTLE TOP SCH (09:11)
[2019-12-02] MEDS: Magnesium 1GM/D5W 100ML PREMIX 100 ML IV SCH ×2 (11:57→14:23)
[2019-12-02] MEDS: CEFEPIME 2 GM in IV D5W 100 ML IV SCH ×2 (12:11→23:44)
--- NOTE | 2019-12-02 15:30 | NUR ---
Patient going have sacral ulcer debridement for tomorrow, obtained sign of consent from Mother/Tracie Marcos.
[2019-12-02] MEDS: INSULIN REGULAR, HUMAN 100 UNIT/ML 3 ML VIAL SQ PRN (18:28)
--- NOTE | 2019-12-02 18:30 | NUR ---
Tele/RN Closing note Patient in bed comfortably, does no appears pain or discomfort, skin is warm to touch, clean/dry, intact IV site. Pt going have debridement on sacral tomorrow, obtained consent by Mother. No s/s of respiratory distress observed with vent machine . Keep bed in lock with low position and elevated head of bed foe secure airway. Call light within reach, will endorse security shift supervisor.
--- NOTE | 2019-12-02 19:27 | NUR ---
DIRECTOR WORK OPENING NOTE RECEIVED PATIENT IN BED. PATIENT IS NONVERBAL, OBTUNDED. ON MECHANICAL VENTILATOR : PORTEX#7 SIMV:6 TV:400 FIO2: 40% PEEP 5. NO S/S RESPIRATORY DISTRESS. NO S/S PAIN AT THIS TIME. EXTERNAL TELE MONITOR READS SINUS TACHYCARDIA HR 108. IN NO APPARENT DISTRESS. IV ACCESS IN RFA PATENT AND SALINE LOCKED. GTUBE IS PRESENT, ASPIRATED, NO RESIDUAL, FLUSHED WITH NO RESISTANCE, FEEDING JEVITY 1.2@75ML/HR. JACOBSON CATHETER IS PRESENT DRAINING TO GRAVITY, URINE IS YELLOW AND CLEAR. BED IS LOW AND LOCKED, HOB ELEVATED IN SEMI FOWLERS, SIDE RIALS UPX2, ON SPECIAL MATRASS, EXTREMITIES OFFLOADED. CALL LIGHT WITHIN REACH. WILL CONTINUE TO MONITOR.
--- NOTE | 2019-12-02 21:19 | NUR ---
telesales agent note called intermission coordinator MD Dr. carrion to advise if i should hold heparin 5000 units tonight d/t patient is schedules to have a sacral debridement tomorrow. telephone order hold heparin 5000 unit. order read back noted and carried out. will continue to monitor.
[2019-12-03] VITALS: BP 129/75
--- NOTE | 2019-12-03 | NUR ---
tele tech note 0000 vital signs show temp 99.0. turned ac on, took off unnecessary linen, placed 2 ice packs on patient. will continue to monitor.
[2019-12-03 00:01] VITALS: BP 129/75
[2019-12-03] MEDS: JEVITY 1.2 CAL 1,000 ML BOTTLE GT SCH ×2 (03:48→23:50)
[2019-12-03 04:00] VITALS: BP_SYST 139; BP_SYST 151; BP_DIAS 79; BP_DIAS 80
[2019-12-03] MEDS: VANCOMYCIN 0.75 GM in IV D5W 250 ML IV SCH ×3 (04:09→22:46)
[2019-12-03] MEDS: ACETAMINOPHEN 325 MG TABLET PO PRN (04:14)
--- NOTE | 2019-12-03 04:14 | NUR ---
telecommunication systems designer note 0400 vital signs temp 99.4. administered tylenol 650mg and give ice bath. will continue to monitor.
[2019-12-03] MEDS: BLOOD SUGAR DIAGNOSTIC 1 EACH STRIP IN SCH ×4 (05:45→23:55)
[2019-12-03] MEDS: INSULIN REGULAR, HUMAN 100 UNIT/ML 3 ML VIAL SQ PRN (05:48)
[2019-12-03 06:09] LABS: BASOPHILS % (AUTO) 0.2 % (0.0-2.0); EOSINOPHILS % (AUTO) 1.6 % (0.0-6.0); HEMATOCRIT 30 % (39-51); HEMOGLOBIN 10.2 g/dL (13.5-17.5); LYMPHOCYTES # (AUTO) 2.1 /CMM (0.8-4.8); LYMPHOCYTES % (AUTO) 15.7 % (20.0-44.0); MEAN CORPUSCULAR HGB CONC 34 g/dl (31.0-36.0); MEAN CORPUSCULAR VOLUME 92 fL (80-96); MONOCYTES # (AUTO) 1.5 /CMM (0.1-1.30); MONOCYTES % (AUTO) 11.1 % (2.0-12.0); NEUTROPHILS # (AUTO) 9.7 /CMM (1.8-8.9); NEUTROPHILS % (AUTO) 71.4 % (43.0-81.0); PLATELET COUNT (AUTO) 174 /CMM (150-450); RED BLOOD CELL COUNT(AUTO) 3.25 MIL/uL (4.5-6.0); WHITE BLOOD COUNT (AUTO) 13.5 K/uL (4.3-11.0)
--- NOTE | 2019-12-03 06:29 | NUR ---
BEAN PICKER CLOSING NOTE PATIENT IN BED. PATIENT IS NONVERBAL, OBTUNDED. ON MECHANICAL VENTILATOR : PORTEX#7 SIMV:6 TV:400 FIO2: 40% PEEP 5. NO RESPIRATORY DISTRESS. NO PAIN. EXTERNAL TELE MONITOR READS SR - ST HR RANGING FROM 96-108. NO DISTRESS. IV ACCESS MAINTAINED IN RAC#18 AND RFA#24 BOTH PATENT AND SALINE LOCKED. GTUBE IS MAINTAINED, FEEDING JEVITY 1.2@75ML/HR. JACOBSON CATHETER IS MAINTAINED DRAINING TO GRAVITY, URINE IS YELLOW AND CLEAR OUTPUT 1400. BED REMAINS LOW AND LOCKED, HOB ELEVATED IN SEMI FOWLERS, SIDE RIALS UPX2, ON SPECIAL MATRASS, EXTREMITIES OFFLOADED. CALL LIGHT WITHIN REACH. WILL ENDORSE TO NEXT SHIFT.
[2019-12-03 06:31] LABS: CALCIUM, SERUM 9.2 mg/dL (8.5-10.1); CREATININE 0.7 mg/dL (0.6-1.3); MAGNESIUM 1.5 mg/dL (1.8-2.4); PHOSPHORUS 4.5 mg/dL (2.5-4.9); POTASSIUM 3.9 mmol/L (3.5-5.1)
[2019-12-03] MEDS: PANTOPRAZOLE 40 MG TABLET.DR PO SCH (06:55)
--- NOTE | 2019-12-03 07:30 | NUR ---
TELE/ RN OPENING NOTE RECEIVED PATIENT IN BED. PATIENT IS NONVERBAL, OBTUNDED. ON MECHANICAL VENTILATOR : PORTEX#7 SIMV:6 TV:400 FIO2: 40% PEEP 5. NO S/S RESPIRATORY DISTRESS. NO S/S PAIN AT THIS TIME. EXTERNAL TELE MONITOR READS SINUS RHYTHMIN HR 94. PATIENT IS IN NO APPARENT DISTRESS. IV ACCESS IN RFA PATENT AND SALINE LOCKED. G-TUBE IS PRESENT, FLUSHED WITH NO RESISTANCE, FEEDING JEVITY 1.2@75ML/HR. JACOBSON CATHETER IS PRESENT. BED IS LOW AND LOCKED, HOB ELEVATED IN SEMI FOWLERS, SIDE RIALS UP X 2, ON SPECIAL MATRASS, EXTREMITIES OFFLOADED. CALL LIGHT WITHIN REACH. WILL CONTINUE TO MONITOR DURING SHIFT.
[2019-12-03 08:00] VITALS: BP 130/81
[2019-12-03] MEDS: HEPARIN SODIUM, PORCINE 5000 UNITS/1 ML VIAL SQ SCH ×2 (09:00→22:55)
[2019-12-03] MEDS ORDERED: SILVER NITRATE APPLICATOR 1 EA BOX TP ONE (09:00)
[2019-12-03] MEDS: LEVETIRACETAM (250 MG) 250 MG TABLET PO SCH ×2 (09:37→22:53)
[2019-12-03] MEDS: FERROUS SULFATE (325 MG) 325 MG/TAB TABLET GT SCH (09:37)
[2019-12-03] MEDS: BACLOFEN (10 MG) 10 MG TABLET GT SCH ×3 (09:38→17:33)
[2019-12-03] MEDS: ASCORBIC ACID 500 MG TABLET GT SCH (09:38)
[2019-12-03] MEDS: hydrALAZINE HCL 50 MG TABLET PO SCH ×3 (09:38→17:33)
[2019-12-03] MEDS: DOCUSATE SODIUM 100 MG CAPSULE PO SCH (09:38)
[2019-12-03] MEDS: CHLORHEXIDINE GLUCONATE 15 ML UDC MM SCH ×2 (09:39→22:52)
[2019-12-03] MEDS: PROSOURCE / PROSTAT (PYXIS) 30 ML UDC GT SCH ×2 (09:39→17:33)
[2019-12-03] MEDS: DAKINS QUARTER STRENGTH (0.125%) 480 ML BOTTLE TOP SCH (10:26)
[2019-12-03] MEDS: CEFEPIME 2 GM in IV D5W 100 ML IV SCH ×2 (11:49→23:54)
[2019-12-03] MEDS: Magnesium 1GM/D5W 100ML PREMIX 100 ML IV SCH ×2 (12:04→13:46)
[2019-12-03] MEDS ORDERED: LIDOCAINE 0.5%-EPI 1:200,000 50 ML VIAL TP STA (12:08)
--- NOTE | 2019-12-03 12:08 | NUR ---
TELE/RN NOTE RECEIVED ORDER FROM IVÁN Kenney LIDOCAINE 0.5 %- EPI 1:200,00. READ BACK, VERIFIED. NOTED AND CARRIED OUT.
--- NOTE | 2019-12-03 12:49 | NUR ---
TELE/RN NOTE SACRAL WOUND DEBRIDEMENT DONE BY TRANSPLANT NURSE ZOIE Franks NP ORDERED SACRAL WOUND SPECIMEN PATHOLOGY. THE SPECIMEN WAS COLLECTED BY THE TRANSPLANT NURSE, ORDERED CARRIED OUT AND LAB MADE AWARE TO JACKAROO THE SPECIMEN FROM THE [facility].
--- NOTE | 2019-12-03 18:20 | NUR ---
TELE/RN CLOSING NOTE PATIENT IS IN BED RESTING AWAKE IN COMFORTABLE POSITION. PATIENT ON VENT AND TRACH AND TOLERATING IT WELL. NO S/S OF DISTRESS NOTED. ALERT AND ORIENTED OBTUND. F/C PRESENT, NOTED CLEAR AND YELLOW COLOR URINE, NO BLOOD OR DISTENTION. G-TUBE FEEDING ON JEVITY 1.2 AT 75ML/HR, NO RESIDUAL NOTED. ABDOMEN SOFT AND NOT DISTENDED. RAC G20 AND RFA G24 BOTH PATENT AND SALINE LOCK. SACRAL DEBREMENT DONE, NO S/S OF BLEEDING AT SITE. BED IS LOW AND LOCKED, SIDE RAILS UP X 3, IN SEMI FOWLERS POSITION. CALL LIGHT WITHIN REACH. WILL ENDORSE CARE TO MOVING VAN DRIVER. Addendum: 12/03/19 at 1832 by NANCY WINTER RN TELE/ RN NOTE EXTERNAL TELE BOX READING SINUS TACH 109
--- NOTE | 2019-12-03 19:20 | NUR ---
TELE/RN OPENING NOTE REPORT RECIEVED FROM SOCORRO RN. PATIENT IS IN BED RESTING IN COMFORTABLE POSITION, OPENS EYES TO TOUCH. PATIENT ON VENT AND TRACH AND TOLERATING WELL SPO2 SAT AT 100%. PT IN NO S/S OF RESP OR ACUTE DISTRESS RESP EVEN UNLABORED PT HAS FLAT AFFECT. PT IS OBTUNDED. F/C PRESENT, CLEAR YELLOW URINE DRAINING. G-TUBE FEEDING ON JEVITY 1.2 AT 75ML/HR, NO RESIDUAL PRESENT. ABDOMEN SOFT ;NOT DISTENDED. RAC G20 AND RFA G24 FLUSHED AND PATENT. SACRAL DEBREMENT DONE EARLIER TODAY, NO S/S OF SIGNIFICANT BLEEDING AT SITE. BED IS LOW LOCKED, SIDE RAILS UP X 3, IN SEMI FOWLERS POSITION. CALL LIGHT PLACED WITHIN REACH. PT ON CARDIAC MONITORY AND CONT SPO2. WILL CONT TO MONITOR. .
[2019-12-03 20:00] VITALS: BP 136/84
[2019-12-04 00:34] VITALS: BP 135/77
[2019-12-04 04:08] VITALS: BP 129/73
[2019-12-04] MEDS: VANCOMYCIN 0.75 GM in IV D5W 250 ML IV SCH ×3 (06:00→22:00)
[2019-12-04] MEDS: BLOOD SUGAR DIAGNOSTIC 1 EACH STRIP IN SCH ×3 (06:12→18:07)
[2019-12-04] MEDS: INSULIN REGULAR, HUMAN 100 UNIT/ML 3 ML VIAL SQ PRN (06:12)
--- NOTE | 2019-12-04 07:15 | NUR ---
TELE/RN CLOSING NOTE IN BED IN COMFORTABLE POSITION, OPENS EYES TO TOUCH. PATIENT ON VENT AND TRACH AND TOLERATING WELL SPO2 SAT AT 100%. PT IN NO S/S OF RESP OR ACUTE DISTRESS RESP EVEN UNLABORED PT HAS FLAT AFFECT. PT IS OBTUNDED. F/C PRESENT, CLEAR YELLOW URINE DRAINING 1400 OUTPUT LAST NIGHT. G-TUBE FEEDING ON JEVITY 1.2 AT 75ML/HR, NO RESIDUAL PRESENT TOLERATING FEEDING WELL. ABDOMEN SOFT ;NOT DISTENDED. RAC G20 AND RFA G24 FLUSHED AND PATENT. SACRAL DEBREMENT DONE EARLIER TODAY, NO S/S OF SIGNIFICANT BLEEDING AT SITE. BED IS LOW LOCKED, SIDE RAILS UP X 3, IN SEMI FOWLERS POSITION. CALL LIGHT PLACED WITHIN REACH. PT ON CARDIAC MONITORY AND CONT SPO2. NO SIGNIFICANT CHANGE AT NIGHT. PT AM BS WAS 109 NO COVERAGE GIVEN.
[2019-12-04 08:00] VITALS: BP 132/81
--- NOTE | 2019-12-04 08:00 | NUR ---
TELE/RN OPENING NOTES IN BED IN COMFORTABLE POSITION, OBTUNDED , OPENS EYES TO TOUCH. PATIENT ON VENT AND TRACH AND TOLERATING WELL SPO2 SAT AT 100%. PT IN NO S/S OF RESP OR ACUTE DISTRESS RESP EVEN UNLABORED PT HAS FLAT AFFECT. PT IS OBTUNDED. F/C PRESENT, DRAINING CLEAR YELLOW URINE .G-TUBE FEEDING ON JEVITY 1.2 AT 75ML/HR FOR 16 HRS, NO RESIDUAL PRESENT TOLERATING FEEDING WELL. HOB ELEVATED. ABDOMEN SOFT ;NOT DISTENDED. RAC G20 AND RFA G24 FLUSHED AND PATENT. S/P SACRAL DEBRIDEMENT DONE YESTERDAY 12/03/2019 , NO S/S OF SIGNIFICANT BLEEDING AT SITE. BED IS LOW LOCKED, SIDE RAILS UP X 3, IN SEMI FOWLERS POSITION. CALL LIGHT PLACED WITHIN REACH. PT ON DIVER TENDER SR HR 105- AND CONT SPO2..
[2019-12-04] MEDS: DOCUSATE SODIUM 100 MG CAPSULE PO SCH (09:33)
[2019-12-04] MEDS: CHLORHEXIDINE GLUCONATE 15 ML UDC MM SCH ×2 (09:33→20:17)
[2019-12-04] MEDS: ASCORBIC ACID 500 MG TABLET GT SCH (09:33)
[2019-12-04] MEDS: hydrALAZINE HCL 50 MG TABLET PO SCH ×3 (09:34→18:06)
[2019-12-04] MEDS: BACLOFEN (10 MG) 10 MG TABLET GT SCH ×3 (09:34→18:07)
[2019-12-04] MEDS: LEVETIRACETAM (250 MG) 250 MG TABLET PO SCH ×2 (09:34→20:17)
[2019-12-04] MEDS: FERROUS SULFATE (325 MG) 325 MG/TAB TABLET GT SCH (09:34)
[2019-12-04] MEDS: PROSOURCE / PROSTAT (PYXIS) 30 ML UDC GT SCH ×2 (09:34→18:07)
[2019-12-04] MEDS: HEPARIN SODIUM, PORCINE 5000 UNITS/1 ML VIAL SQ SCH ×2 (09:38→20:19)
[2019-12-04] MEDS: DAKINS QUARTER STRENGTH (0.125%) 480 ML BOTTLE TOP SCH (09:41)
[2019-12-04] MEDS: PANTOPRAZOLE 40 MG TABLET.DR PO SCH (09:41)
[2019-12-04 10:41] LABS: BASOPHILS % (AUTO) 0.3 % (0.0-2.0); HEMATOCRIT 30 % (39-51); HEMOGLOBIN 9.9 g/dL (13.5-17.5); LYMPHOCYTES # (AUTO) 2.1 /CMM (0.8-4.8); LYMPHOCYTES % (AUTO) 13.5 % (20.0-44.0); MEAN CORPUSCULAR HGB CONC 34 g/dl (31.0-36.0); MEAN CORPUSCULAR VOLUME 92 fL (80-96); MONOCYTES # (AUTO) 1.9 /CMM (0.1-1.30); NEUTROPHILS # (AUTO) 11.6 /CMM (1.8-8.9); NEUTROPHILS % (AUTO) 73.2 % (43.0-81.0); PLATELET COUNT (AUTO) 263 /CMM (150-450); RED BLOOD CELL COUNT(AUTO) 3.22 MIL/uL (4.5-6.0); WHITE BLOOD COUNT (AUTO) 15.9 K/uL (4.3-11.0)
[2019-12-04 11:13] LABS: BAND % (MANUAL) 3 % (0.0-5.0); LYMPHOCYTES % (MANUAL) 18 % (16-48); MONOCYTES % (MANUAL) 13 % (0-11.0); NEUTROPHILS % (MANUAL) 66 (42-76)
[2019-12-04 11:24] LABS: CALCIUM, SERUM 9.4 mg/dL (8.5-10.1); CREATININE 0.7 mg/dL (0.6-1.3); MAGNESIUM 1.6 mg/dL (1.8-2.4); POTASSIUM 4.2 mmol/L (3.5-5.1)
[2019-12-04] MEDS: CEFEPIME 2 GM in IV D5W 100 ML IV SCH (11:26)
[2019-12-04] MEDS ORDERED: VANC1FRO2 IV (12:00)
[2019-12-04] MEDS ORDERED: CEFE2PIG2 IV (12:00)
[2019-12-04] MEDS ORDERED: DOSING PER PHARMACY-AMIKACI IV XX PRN (18:00)
[2019-12-04] MEDS ORDERED: FEE PK DOSING 1 MIN EA MC ONE (18:05)
--- NOTE | 2019-12-04 19:20 | NUR ---
TELE/RN OPENING NOTES REPORT RECIEVED FROM ELIZABETH BEJARANO. PT OBTUNDED , OPENS EYES TO TOUCH. PATIENT ON VENT AND TRACH AND TOLERATING WELL SPO2 SAT AT 100%. PT IN NO S/S OF RESP OR ACUTE DISTRESS RESP EVEN UNLABORED PT HAS FLAT AFFECT. PT NOTED TO BE DIAPHORETIC. F/C PRESENT, DRAINING CLEAR YELLOW URINE ; G-TUBE FEEDING ON JEVITY 1.2 AT 75ML/HR FOR 16 HRS, NO RESIDUAL PRESENT TOLERATING FEEDING WELL. HOB ELEVATED TO 45 DEGREES ON ISOFLEX ASHLEE MATTRESS. . ABDOMEN SOFT ;NOT DISTENDED. RAC G20 AND RFA G24 FLUSHED AND PATENT. S/P SACRAL DEBRIDEMENT DONE YESTERDAY 12/03/2019 , NO S/S OF SIGNIFICANT BLEEDING AT SITE TO SACRAL SITE. BED IS LOW LOCKED, SIDE RAILS UP X 3, IN SEMI FOWLERS POSITION. CALL LIGHT PLACED WITHIN REACH. PT ON STAFFING EXECUTIVE SR HR 100'S. WILL CONT TO MONITOR.
--- NOTE | 2019-12-04 19:39 | NUR ---
PT RESTING IN BED WITH NO S/S OF PAIN OR DISTRESS.HOB ELEVATED.WITH ONGOING GT FEEDING AT 75 ML/HR TOLERATING WELL. WITH JACOBSON CATHETER INTACT AND DRAINING YELLOW URINE OUTPUT. TURNED EVERY TWO HRS.
--- NOTE | 2019-12-04 20:09 | NUR ---
PT RECEIVED TRACHED ON MECHANICAL VENTILATION. PT IS COMFORTABLE. VENT PLUGGED TO RED OUTLET. ALARMS ON AND AUDIBLE. WILL MONITOR T/O SHIFT. Addendum: 12/04/19 at 2009 by BEATA BRAVO RT Amended: Links added.
[2019-12-04] MEDS: AMIKACIN 350 MG in IV D5W 100 ML IV SCH (20:12)
[2019-12-04 20:22] VITALS: BP 152/79
[2019-12-05] VITALS: BP 149/79
[2019-12-05] MEDS: CEFEPIME 2 GM in IV D5W 100 ML IV SCH ×3 (00:01→22:32)
[2019-12-05] MEDS: BLOOD SUGAR DIAGNOSTIC 1 EACH STRIP IN SCH ×5 (00:41→23:24)
[2019-12-05] MEDS: INSULIN REGULAR, HUMAN 100 UNIT/ML 3 ML VIAL SQ PRN ×3 (00:42→17:48)
[2019-12-05 04:00] VITALS: BP 140/81
[2019-12-05] MEDS: VANCOMYCIN 0.75 GM in IV D5W 250 ML IV SCH ×3 (05:03→20:08)
--- NOTE | 2019-12-05 06:13 | NUR ---
rfa infiltrated iv removed. iv f stopped.
--- NOTE | 2019-12-05 06:40 | NUR ---
IV INFILTRATED. MIDLINE ORDERED. CHARGE NURSE JEZ ATTEMPTED TO INSERT BUT UNABLE TO LOCATE SUITABLE SITE. CALL MADE TO COREY VASQUEZ DNP. INFORMED OF SITUATION ORDER FOR MIDLINE OBTAINED. STONEY SILVER CALLED INFORMED AND STATES SHE WILL PAGE MIDLINE NURSE.
[2019-12-05 08:00] VITALS: BP 126/84
--- NOTE | 2019-12-05 08:00 | NUR ---
MS RN OPENING NOTES RECEIVED PATIENT IN BED, OBTUNDED, RESPONDS TO VERBAL TOUCH, ATTACHED TO PORTABLE MECH VENT, NO SIGNS OF RESPIRATORY DISTRESS, NO IV ACCESS IT WAS INFILTRATED, GT TUBE FEEDING JEVITY @ 75ML/HR, WITH JACOBSON CATH YELLOWISH COLORED URINE, SIDE RAILS UP.
--- NOTE | 2019-12-05 08:00 | NUR ---
MS BEJARANO NOTESS AMIKIN MEDICATION NOT GIVEN. NO IV ACCESS, INFILTRATED LAST SHIFT. WAITING FOR MEDLINE ACCESS. Addendum: 12/05/19 at 1012 by ANIKA CARVAJAL RN CALLED PHARMACY AND INFORMED THEM THE SITUATION. TOLD THEM WILL LET THEM KNOW ONCE WE HAVE IV ACCESS. Addendum: 12/05/19 at 1012 by ANIKA CARVAJAL RN PHARMACIST JET
--- NOTE | 2019-12-05 08:00 | NUR ---
MS RN OPENING NOTES RECEIVED PATIENT IN BED, A/0 X 2-3, RESPONSE TO VERBAL, RFA #22, GT TUBE FEEDING GLUCERNA @ 65ML/HR, WITH JACOBSON CATH WITH YELLOWISH COLORED URINE, SIDE RAILS UP.
[2019-12-05] MEDS: PANTOPRAZOLE 40 MG TABLET.DR PO SCH (08:09)
[2019-12-05] MEDS: LEVETIRACETAM (250 MG) 250 MG TABLET PO SCH ×2 (08:35→20:08)
[2019-12-05] MEDS: hydrALAZINE HCL 50 MG TABLET PO SCH ×3 (08:36→16:42)
[2019-12-05] MEDS: CHLORHEXIDINE GLUCONATE 15 ML UDC MM SCH ×2 (08:36→20:08)
[2019-12-05] MEDS: ASCORBIC ACID 500 MG TABLET GT SCH (08:36)
[2019-12-05] MEDS: FERROUS SULFATE (325 MG) 325 MG/TAB TABLET GT SCH (08:36)
[2019-12-05] MEDS: DOCUSATE SODIUM 100 MG CAPSULE PO SCH (08:36)
[2019-12-05] MEDS: BACLOFEN (10 MG) 10 MG TABLET GT SCH ×3 (08:36→16:41)
[2019-12-05] MEDS: HEPARIN SODIUM, PORCINE 5000 UNITS/1 ML VIAL SQ SCH (08:37)
[2019-12-05] MEDS: DAKINS QUARTER STRENGTH (0.125%) 480 ML BOTTLE TOP SCH (08:38)
[2019-12-05] MEDS: PROSOURCE / PROSTAT (PYXIS) 30 ML UDC GT SCH ×2 (08:38→16:43)
[2019-12-05] MEDS: AMIKACIN 350 MG in IV D5W 100 ML IV SCH ×2 (10:53→21:47)
--- NOTE | 2019-12-05 10:53 | NUR ---
MS RN NOTES MIDLINE ACCESS DONE. AMIKACIN MEDICATION WILL BE GIVEN.
[2019-12-05] MEDS: Magnesium 1GM/D5W 100ML PREMIX 100 ML IV SCH ×2 (11:24→12:29)
[2019-12-05 13:00] VITALS: BP 126/85
--- NOTE | 2019-12-05 13:59 | NUR ---
MS BEJARANO NOTES CEFEPIME GIVEN LATE. NOT COMPATIBLE WITH MAGNESIUM IV INFUSION. Addendum: 12/05/19 at 1400 by ANIKA CARVAJAL RN VANCOMYCIN WILL BE GIVEN AFTER.
[2019-12-05] MEDS: JEVITY 1.2 CAL 1,000 ML BOTTLE GT SCH (14:32)
[2019-12-05 16:00] VITALS: BP 136/80
[2019-12-05 16:56] LABS: BASOPHILS % (AUTO) 0.3 % (0.0-2.0); EOSINOPHILS % (AUTO) 1.4 % (0.0-6.0); HEMATOCRIT 31 % (39-51); HEMOGLOBIN 10.3 g/dL (13.5-17.5); LYMPHOCYTES % (AUTO) 12.4 % (20.0-44.0); MEAN CORPUSCULAR HGB CONC 33 g/dl (31.0-36.0); MEAN CORPUSCULAR VOLUME 93 fL (80-96); MONOCYTES # (AUTO) 1.4 /CMM (0.1-1.30); MONOCYTES % (AUTO) 8.8 % (2.0-12.0); NEUTROPHILS # (AUTO) 12.7 /CMM (1.8-8.9); NEUTROPHILS % (AUTO) 77.1 % (43.0-81.0); PLATELET COUNT (AUTO) 346 /CMM (150-450); RED BLOOD CELL COUNT(AUTO) 3.38 MIL/uL (4.5-6.0); WHITE BLOOD COUNT (AUTO) 16.4 K/uL (4.3-11.0)
[2019-12-05 17:09] LABS: CALCIUM, SERUM 9.6 mg/dL (8.5-10.1); CREATININE 0.7 mg/dL (0.6-1.3); MAGNESIUM 2.2 mg/dL (1.8-2.4)
[2019-12-05 17:17] LABS: POTASSIUM 4.2 mmol/L (3.5-5.1)
[2019-12-05 17:19] LABS: EOSINOPHILS % (MANUAL) 3 % (0-4); LYMPHOCYTES % (MANUAL) 11 % (16-48); MONOCYTES % (MANUAL) 7 % (0-11.0); NEUTROPHILS % (MANUAL) 79 (42-76)
--- NOTE | 2019-12-05 19:03 | NUR ---
MS RN CLOSING NOTES ENDORSED PATIENT IN BED, A/0 X 2-3, RESPONSE TO VERBAL, RFA #22, GT TUBE FEEDING GLUCERNA @ 65ML/HR, WITH JACOBSON CATH WITH YELLOWISH COLORED URINE, SIDE RAILS UP SAFETY.
[2019-12-05 20:00] VITALS: BP 129/83
[2019-12-05 20:47] LABS: URINE SODIUM, RANDOM 46 mmol/l (40-220)
[2019-12-05 20:53] LABS: OSMOLALITY,URINE 195 mOS/kg (340-1090)
[2019-12-06] VITALS: BP 128/90
[2019-12-06 04:00] VITALS: BP 119/74
[2019-12-06] MEDS: VANCOMYCIN 0.75 GM in IV D5W 250 ML IV SCH ×3 (04:09→20:51)
[2019-12-06] MEDS: JEVITY 1.2 CAL 1,000 ML BOTTLE GT SCH (04:35)
[2019-12-06] MEDS: BLOOD SUGAR DIAGNOSTIC 1 EACH STRIP IN SCH ×4 (06:23→23:36)
--- NOTE | 2019-12-06 06:58 | NUR ---
RN CLOSING NOTE NO ACUTE CHANGES OBSERVED OVERNIGHT. PT KEPT CLEAN AND COMFORTABLE, PT ON MECHANICAL VENTILATOR AND TOLERATING SETTINGS WELL. TRACH MID LINE AND IN PLACE. GT FEEDING RUNNING ORDERED WITH MINIMAL GASTRIC RESIDUAL. ALL NEEDS MET AND ATTENDED TO. CALL LIGHT WITHIN REACH, SAFETY MEASURES IN PLACE, ENDORSED TO MORNING RN FOR CONTINUATION OF CARE.
[2019-12-06] MEDS: PANTOPRAZOLE 40 MG TABLET.DR PO SCH (07:33)
[2019-12-06 07:39] LABS: CALCIUM, SERUM 9.5 mg/dL (8.5-10.1); CREATININE 0.6 mg/dL (0.6-1.3); MAGNESIUM 1.8 mg/dL (1.8-2.4); PHOSPHORUS 3.5 mg/dL (2.5-4.9); POTASSIUM 4.1 mmol/L (3.5-5.1)
[2019-12-06 07:57] LABS: THYROID STIMULATING HORMONE 1.282 uIU/mL (0.358-3.74); URIC ACID 2.2 mg/dL (2.6-7.2)
[2019-12-06 08:00] VITALS: BP 131/94
--- NOTE | 2019-12-06 08:00 | NUR ---
MS RN OPENING NOTES RECEIVED PATIENT IN BED, OBTUNDED, RESPONDS TO VERBAL TOUCH, ATTACHED TO PORTABLE MECH VENT, NO SIGNS OF RESPIRATORY DISTRESS, EYAL MIDLINE, GT TUBE FEEDING JEVITY @ 75ML/HR, WITH JACOBSON CATH YELLOWISH COLORED URINE, SIDE RAILS UP.
[2019-12-06] MEDS: BACLOFEN (10 MG) 10 MG TABLET GT SCH ×3 (08:16→16:11)
[2019-12-06] MEDS: DOCUSATE SODIUM 100 MG CAPSULE PO SCH (08:16)
[2019-12-06] MEDS: hydrALAZINE HCL 50 MG TABLET PO SCH ×3 (08:16→16:12)
[2019-12-06] MEDS: ASCORBIC ACID 500 MG TABLET GT SCH (08:16)
[2019-12-06] MEDS: FERROUS SULFATE (325 MG) 325 MG/TAB TABLET GT SCH (08:16)
[2019-12-06] MEDS: CHLORHEXIDINE GLUCONATE 15 ML UDC MM SCH ×2 (08:17→20:50)
[2019-12-06] MEDS: LEVETIRACETAM (250 MG) 250 MG TABLET PO SCH ×2 (08:17→20:51)
[2019-12-06] MEDS: PROSOURCE / PROSTAT (PYXIS) 30 ML UDC GT SCH ×2 (08:18→16:11)
[2019-12-06] MEDS: DAKINS QUARTER STRENGTH (0.125%) 480 ML BOTTLE TOP SCH (08:18)
[2019-12-06] MEDS: AMIKACIN 350 MG in IV D5W 100 ML IV SCH ×2 (09:54→22:32)
[2019-12-06] MEDS: CEFEPIME 2 GM in IV D5W 100 ML IV SCH ×2 (10:40→23:16)
[2019-12-06 12:00] VITALS: BP 129/81
[2019-12-06 16:00] VITALS: BP 140/83
--- NOTE | 2019-12-06 18:40 | NUR ---
MS RN CLOSING NOTES ENDORSED PATIENT IN BED, OBTUNDED, RESPONDS TO VERBAL TOUCH, ATTACHED TO PORTABLE MECH VENT, NO SIGNS OF RESPIRATORY DISTRESS, EYAL MIDLINE, GT TUBE FEEDING JEVITY @ 75ML/HR, WITH JACOBSON CATH YELLOWISH COLORED URINE, SIDE RAILS UP FOR SAFETY, SAFETY MEASURES DONE, ALL NEEDS MET.
--- NOTE | 2019-12-06 18:51 | NUR ---
MS BEJARANO NOTES RAJNI FROM CALLED AND INFORMED THAT AMIKACIN TROUGH IS 11.4 H. CALLED PHARMACY AND INFORMED THEM. Addendum: 12/06/19 at 1857 by ANIKA CARVAJAL RN TALKED TO JERILYN FROM PHARMACY REGARDING THE CRITICAL LAB RESULT.
--- NOTE | 2019-12-06 19:05 | NUR ---
EXECUTIVE KITCHEN MANAGER OPENING NOTES RECEIVED PATIENT IN BED HEAD OF ELEVATED FOR ASPIRATION PRECAUTIONS, RESPIRATIONS EVEN AND UNLABORED WITH EQUAL RISE AND FALL OF CHEST, APPEARS COMFORTABLE AT THIS TIME, ON MECHANICAL VENT. TOLERATING WELL, ALARMS AUDIBLE, PLUGGED IN RED EMERGENCY PLUG, AMBU BAG AT BEDSIDE, SUCTION EQUIPMENT SET UP IN PLACE, TRACH COLLAR PROPERLY IN PLACE, GTUBE INTACT AND WORKING NO RESIDUALS NOTES, SEIZURE PRECAUTIONS RENDERED ORIENTED TO STAFF AND CALL LIGHT AND KEPT WITHIN REACH, JACOBSON CATHETER INTACT AND DRAINING WELL, ALL NEEDS ATTENDED AT THIS TIME, WILL CONTINUE TO MONITOR.
[2019-12-06 20:00] VITALS: BP_SYST 142; BP_SYST 144; BP_DIAS 77
--- NOTE | 2019-12-06 22:00 | NUR ---
FIELD AUTO APPRAISER NOTES CALLED AND SPOKE TO CARDIOLOGY RN PHARMACIST ANTHONY YIN HOBBS REGARDING ELEVATED AMIKACIN TROUGH, PER PHARMACIST TROUGH RESULT IS INVALID IT WAS DRAWN AFTER ADMINISTRATION , PER PHARMACIST IF POSSIBLE ORDER AMIKACIN TROUGH NOW PRIOR TO SCHEDULED DOSE.
--- NOTE | 2019-12-06 22:30 | NUR ---
HUB INVENTORY SPECIALIST NOTES AMIKACIN TROUGH WAS ORDERED STAT AND DRAWN HOWEVER PER LAB WILL NOT GET RESULTS UNTIL 1 AM. CALLED TECHNOLOGY LAB TEACHER PHARMACIST TO NOTIFY THEM PER PHARMACY DON'T DELAY ADMINISTRATION AND CONTINUE TO GIVE MEDICATION ORDERED AND DRAW AMIKACIN TROUGH PRIOR TO NEXT SCHEDULED DOSE.
--- NOTE | 2019-12-06 22:58 | NUR ---
VIRTUALIZATION CONSULTANT NOTES NO NEED TO REDRAW AMIKACIN TROUGH PER PHARMACY DRAWN AT 2100 AND IFNEED TO PHARM WILL ADJUST MEDICATION FROM 2100 RESULT.
[2019-12-06] MEDS: INSULIN REGULAR, HUMAN 100 UNIT/ML 3 ML VIAL SQ PRN (23:37)
[2019-12-07] VITALS (7 sets, daily range): BP systolic 123–137; BP diastolic 76–91
--- NOTE | 2019-12-07 | NUR ---
SENIOR DIRECTOR OF STRATEGY NOTE MADE HOSPITALIST CORYE VASQUEZ AWARE ABOUT VTE SCORE GREATER THAN 5 AND NO ANTICOAGULANT ORDERED AT THIS TIME PER HOSPITALIST PT FOR POSSIBLE DEBRIDEMENT NO NEW ORDER AT THIS TIME.
[2019-12-07] MEDS: JEVITY 1.2 CAL 1,000 ML BOTTLE GT SCH (02:22)
[2019-12-07] MEDS: ACETAMINOPHEN 325 MG TABLET PO PRN (03:54)
--- NOTE | 2019-12-07 03:54 | NUR ---
corn breeder notes noted elevated temperature of 100. tylenol and cooling measure provides, will continue to monitor for effectiveness, no distress present, appears comfortable.
[2019-12-07] MEDS: VANCOMYCIN 0.75 GM in IV D5W 250 ML IV SCH ×2 (04:00→14:12)
--- NOTE | 2019-12-07 05:38 | NUR ---
pattern mechanic notes temperature reassessed, tylenol and cooling measures effective current temp is 99.6
[2019-12-07] MEDS: INSULIN REGULAR, HUMAN 100 UNIT/ML 3 ML VIAL SQ PRN (05:43)
[2019-12-07] MEDS: BLOOD SUGAR DIAGNOSTIC 1 EACH STRIP IN SCH ×3 (05:44→17:19)
--- NOTE | 2019-12-07 06:16 | NUR ---
MOLD WASHER CLOSING NOTES PATIENT IN BED HEAD OF ELEVATED FOR ASPIRATION PRECAUTIONS, RESPIRATIONS EVEN AND UNLABORED WITH EQUAL RISE AND FALL OF CHEST, APPEARS COMFORTABLE AT THIS TIME, ORAL CARE PROVIDED. ON MECHANICAL VENT. TOLERATING WELL, ALARMS AUDIBLE, PLUGGED IN RED EMERGENCY PLUG, AMBU BAG AT BEDSIDE, SUCTION EQUIPMENT SET UP IN PLACE, TRACH COLLAR PROPERLY IN PLACE, GTUBE INTACT AND WORKING NO RESIDUALS NOTES, SEIZURE PRECAUTIONS RENDERED, WOUND CARE PROVIDED ORDERED, HEELS OFFLOADED,PATIENT REPOSITIONED FOR WOUND AND SKIN MANAGEMENT Q2HRS. CALL LIGHT KEPT WITHIN REACH, JACOBSON CATHETER INTACT AND DRAINING WELL, CONTINUOUS SP02 MONITOR IN PLACE 02 SAT 100%. RIGHT UPPER MIDLINE INTACT AND PATENT, NO REDNESS, NO INFILTRATION PRESENT, SL. ALL NEEDS ATTENDED AT THIS TIME, WILL CONTINUE TO MONITOR AND ENDORSE TO NEXT SHIFT. PATIENT REMAINS COMFORTABLE.
--- NOTE | 2019-12-07 06:20 | NUR ---
PREPARATION ROOM MANAGER NOTES PATIENT REMAINS AFEBRILE.
--- NOTE | 2019-12-07 07:15 | NUR ---
BAND SAW OPERATOR CAKE CUTTING OPENING NOTE Received patient asleep in bed. Appears calm and relaxed no signs of distress. Pt is obtunded opens eyes spontaneously and mouth opened unable to close. Patient is on trach and vent settings tolerating well. On GT feeding Jevity 1.2 @ 75ml/hr tolerating well. Checked placement, positive and flushed well. Patient is noted with contraction on bilateral upper and lower extremities.. Has EYAL midline flushed well dressing intact. Safety measures reinforced. Bed locked and on lowest position. Siderails up x2. Will cont to monitor.
[2019-12-07 07:18] LABS: BASOPHILS % (AUTO) 0.2 % (0.0-2.0); EOSINOPHILS % (AUTO) 0.7 % (0.0-6.0); HEMATOCRIT 31 % (39-51); HEMOGLOBIN 10.3 g/dL (13.5-17.5); LYMPHOCYTES % (AUTO) 11.9 % (20.0-44.0); MEAN CORPUSCULAR HGB CONC 33 g/dl (31.0-36.0); MEAN CORPUSCULAR VOLUME 92 fL (80-96); MONOCYTES # (AUTO) 1.3 /CMM (0.1-1.30); MONOCYTES % (AUTO) 7.5 % (2.0-12.0); NEUTROPHILS # (AUTO) 13.7 /CMM (1.8-8.9); NEUTROPHILS % (AUTO) 79.7 % (43.0-81.0); PLATELET COUNT (AUTO) 447 /CMM (150-450); RED BLOOD CELL COUNT(AUTO) 3.36 MIL/uL (4.5-6.0); WHITE BLOOD COUNT (AUTO) 17.1 K/uL (4.3-11.0)
[2019-12-07 07:22] LABS: CALCIUM, SERUM 9.5 mg/dL (8.5-10.1); CREATININE 0.5 mg/dL (0.6-1.3); MAGNESIUM 1.7 mg/dL (1.8-2.4); PHOSPHORUS 3.6 mg/dL (2.5-4.9)
[2019-12-07] MEDS: CHLORHEXIDINE GLUCONATE 15 ML UDC MM SCH ×2 (08:12→20:47)
[2019-12-07] MEDS: PANTOPRAZOLE 40 MG TABLET.DR PO SCH (08:12)
[2019-12-07] MEDS: LEVETIRACETAM (250 MG) 250 MG TABLET PO SCH ×2 (08:13→20:47)
[2019-12-07] MEDS: ASCORBIC ACID 500 MG TABLET GT SCH (08:13)
[2019-12-07] MEDS: BACLOFEN (10 MG) 10 MG TABLET GT SCH ×3 (08:17→16:52)
[2019-12-07] MEDS: PROSOURCE / PROSTAT (PYXIS) 30 ML UDC GT SCH ×2 (08:17→16:52)
[2019-12-07] MEDS: DOCUSATE SODIUM 100 MG CAPSULE PO SCH (08:17)
[2019-12-07] MEDS: hydrALAZINE HCL 50 MG TABLET PO SCH ×3 (08:17→16:53)
[2019-12-07] MEDS: FERROUS SULFATE (325 MG) 325 MG/TAB TABLET GT SCH (08:17)
[2019-12-07] MEDS: DAKINS QUARTER STRENGTH (0.125%) 480 ML BOTTLE TOP SCH (08:18)
[2019-12-07] MEDS: AMIKACIN 350 MG in IV D5W 100 ML IV SCH ×2 (09:54→19:18)
[2019-12-07] MEDS: CEFEPIME 2 GM in IV D5W 100 ML IV SCH ×2 (11:06→23:27)
[2019-12-07] MEDS: Magnesium 1GM/D5W 100ML PREMIX 100 ML IV SCH ×2 (12:34→13:31)
--- NOTE | 2019-12-07 19:15 | NUR ---
SUPERVISOR ABATTOIR CLOSING NOTE Pt in bed no signs of distress. Vital signs within normal limits. No signs of pain or discomfort. All due meds given. Cont on atb therapy tolerating well. No signs of adverse reaction. Spoke to Carol (mother) and gave update about the patient. Kept clean and comfortable. Repositioned q2h. Offload legs and heels. Changed dressing. Safety measures reinforced. Bed locked and on lowest position. Endorsed to carpenter foreman nurse for shea.
[2019-12-08] VITALS (8 sets, daily range): BP systolic 126–159; BP diastolic 69–98
[2019-12-08] MEDS: BLOOD SUGAR DIAGNOSTIC 1 EACH STRIP IN SCH ×5 (00:08→23:22)
--- NOTE | 2019-12-08 02:24 | NUR ---
RT NOTE Pt rec'd trached on mech vent on AC mode. Pt showed no signs of resp distress.Trach is patent and secured. Pt sx'd for thick mod amt of pale yellow secretions. Alarms are set and audible. Ambu bag bedside. Vent plugged into red outlet. Will continue to monitor. Addendum: 12/08/19 at 223 by JAMEE CARTER RT Amended: Links added. Addendum: 12/08/19 at 4 by JAMEE CARTER RT Pt on mec vent on SIMV mode
[2019-12-08] MEDS: AMIKACIN 350 MG in IV D5W 100 ML IV SCH ×3 (02:30→17:43)
[2019-12-08] MEDS: JEVITY 1.2 CAL 1,000 ML BOTTLE GT SCH (02:53)
[2019-12-08 04:03] LABS: BASOPHILS # (AUTO) 0.1 /CMM (0.0-0.2); BASOPHILS % (AUTO) 0.6 % (0.0-2.0); EOSINOPHILS % (AUTO) 0.9 % (0.0-6.0); HEMATOCRIT 30 % (39-51); HEMOGLOBIN 10.1 g/dL (13.5-17.5); LYMPHOCYTES # (AUTO) 2.1 /CMM (0.8-4.8); MEAN CORPUSCULAR HGB CONC 33 g/dl (31.0-36.0); MEAN CORPUSCULAR VOLUME 92 fL (80-96); MONOCYTES # (AUTO) 1.2 /CMM (0.1-1.30); MONOCYTES % (AUTO) 7.4 % (2.0-12.0); NEUTROPHILS # (AUTO) 12.6 /CMM (1.8-8.9); NEUTROPHILS % (AUTO) 78.1 % (43.0-81.0); PLATELET COUNT (AUTO) 514 /CMM (150-450); WHITE BLOOD COUNT (AUTO) 16.2 K/uL (4.3-11.0)
[2019-12-08 04:11] LABS: CALCIUM, SERUM 9.4 mg/dL (8.5-10.1); CREATININE 0.6 mg/dL (0.6-1.3); MAGNESIUM 1.9 mg/dL (1.8-2.4); PHOSPHORUS 3.9 mg/dL (2.5-4.9); POTASSIUM 4.5 mmol/L (3.5-5.1)
--- NOTE | 2019-12-08 07:00 | NUR ---
PRINCIPAL MECHANICAL ENGINEER . PATIENT OBTUNDED. ON VENT WITH PRESCRIBED SETTINGS. PORTEX 7 , SIMV :6 , TV 400, PEEP 5. FIO2 @ 40. PATIENT SATURATING > 95 PERCENT. PATIENT HAS JACOBSON DRAINING YELLOW AND CLEAR DRAINAGE. PEG WITH JEVITY 1.2 @ 75 ML/HR . EYAL MIDLINE WITH TKO @ 5 ML/HR . BED LOCKED LOWEST POSITION CALL LIGHT WITH IN REACH ALL SAFETY MEASURE IMPLEMENTED PER HOSPITAL POLICY.
[2019-12-08] MEDS: PANTOPRAZOLE 40 MG TABLET.DR PO SCH (08:45)
[2019-12-08] MEDS: BACLOFEN (10 MG) 10 MG TABLET GT SCH ×3 (08:45→17:42)
[2019-12-08] MEDS: FERROUS SULFATE (325 MG) 325 MG/TAB TABLET GT SCH (08:45)
[2019-12-08] MEDS: ASCORBIC ACID 500 MG TABLET GT SCH (08:46)
[2019-12-08] MEDS: CHLORHEXIDINE GLUCONATE 15 ML UDC MM SCH ×2 (08:46→20:22)
[2019-12-08] MEDS: PROSOURCE / PROSTAT (PYXIS) 30 ML UDC GT SCH ×2 (08:46→17:42)
[2019-12-08] MEDS: DAKINS QUARTER STRENGTH (0.125%) 480 ML BOTTLE TOP SCH (08:47)
[2019-12-08] MEDS: LEVETIRACETAM (250 MG) 250 MG TABLET PO SCH ×2 (08:47→20:22)
[2019-12-08] MEDS: DOCUSATE SODIUM 100 MG CAPSULE PO SCH (08:47)
[2019-12-08] MEDS: hydrALAZINE HCL 50 MG TABLET PO SCH ×3 (08:48→17:42)
[2019-12-08] MEDS: CEFEPIME 2 GM in IV D5W 100 ML IV SCH ×2 (12:31→23:21)
[2019-12-08] MEDS: INSULIN REGULAR, HUMAN 100 UNIT/ML 3 ML VIAL SQ PRN (13:15)
--- NOTE | 2019-12-08 13:24 | NUR ---
RT NOTE PT RCVD TRACH'D ON MECHANICAL VENT WITH CHARTED SETTINGS. SX DONE. PT TRACH IS PATENT AND SECURE. VENT PLUGGED INTO RED OUTLET. VENT ALARMS ARE ON AND AUDIBLE. AMBU BAG AT BED SIDE. NO SOB NOTED. Addendum: 12/08/19 at 1324 by SAYDA MAHAN RT Amended: Links added.
--- NOTE | 2019-12-08 18:47 | NUR ---
RN TELE1 PATIENT REMAINS STABLE AT THIS TIME, NO SOB, NO ACUTE RESPIRATORY DISTRESS NO PAIN. VITALS STABLE ALL NEEDS MET, WOUND TX COMPLETED . BED LOCKED LOWEST POSITION , CALL LIGHT WITH IN REACH ALL SAFETY MEASURES IMPLEMENTED PERHOSPITAL POLICY.
--- NOTE | 2019-12-08 19:43 | NUR ---
MANAGEMENT NURSE RN NOTES PATIENT RECEIVED RESTING IN BED, OBTUNDED. TOLERATING VENT SETTINGS WELL. NO SIGNS OF ACUTE DISTRESS. BREATHING EVEN AND UNLABORED. TELE MONITORS READING SR. GTUBE FEEDING RUNNING JEVITY 1.2 @ 75ML/HR. IV LOCATED ON R UA MIDLINE. SAFETY PRECAUTIONS IN PLACE WITH BED IN LOWEST POSITION, CALL LIGHT WITHIN REACH, BREAKS ON, SIDE RAILS UP. WILL CONTINUE TO MONITOR THROUGHOUT THE SHIFT.
[2019-12-09] VITALS (8 sets, daily range): BP systolic 112–134; BP diastolic 66–93
[2019-12-09] MEDS: JEVITY 1.2 CAL 1,000 ML BOTTLE GT SCH (00:10)
[2019-12-09] MEDS: AMIKACIN 350 MG in IV D5W 100 ML IV SCH ×3 (01:22→17:29)
--- NOTE | 2019-12-09 03:28 | NUR ---
RT NOTE [facility]. Pt showed no signs of resp distress or sob. Trach is patent and secured. Pt sx'd for thick mod amt of pale yellow secretions. Alarms are set and audible. Vent plugged into red outlet. Ambu bag bedside. Will continue to monitor closely. Addendum: 12/09/19 at 0329 by JAMEE CARTER RT Amended: Links added.
[2019-12-09] MEDS: BLOOD SUGAR DIAGNOSTIC 1 EACH STRIP IN SCH ×3 (05:42→17:37)
--- NOTE | 2019-12-09 07:01 | NUR ---
MANAGER BIOSTATISTICS CLOSING NOTES PATIENT RESTING IN BED, OBTUNDED. TOLERATING VENT SETTINGS WELL. NO SIGNS OF ACUTE DISTRESS. BREATHING EVEN AND UNLABORED. TELE MONITORS READING SR. GTUBE FEEDING RUNNING JEVITY 1.2 @ 75ML/HR. IV LOCATED ON R UA MIDLINE. SAFETY PRECAUTIONS IN PLACE WITH BED IN LOWEST POSITION, CALL LIGHT WITHIN REACH, BREAKS ON, SIDE RAILS UP. ALL NEEDS ATTENDED TO, PATIENT KEPT CLEAN AND DRY. WILL ENDORSE TO ONCOMING SHIFT ABOUT JENNY.
[2019-12-09 07:12] LABS: BASOPHILS # (AUTO) 0.1 /CMM (0.0-0.2); BASOPHILS % (AUTO) 0.5 % (0.0-2.0); EOSINOPHILS % (AUTO) 1.7 % (0.0-6.0); HEMATOCRIT 33 % (39-51); HEMOGLOBIN 10.6 g/dL (13.5-17.5); LYMPHOCYTES % (AUTO) 16.6 % (20.0-44.0); MEAN CORPUSCULAR HGB CONC 32 g/dl (31.0-36.0); MEAN CORPUSCULAR VOLUME 94 fL (80-96); MONOCYTES # (AUTO) 0.9 /CMM (0.1-1.30); MONOCYTES % (AUTO) 7.9 % (2.0-12.0); NEUTROPHILS # (AUTO) 8.6 /CMM (1.8-8.9); NEUTROPHILS % (AUTO) 73.3 % (43.0-81.0); PLATELET COUNT (AUTO) 538 /CMM (150-450); RED BLOOD CELL COUNT(AUTO) 3.47 MIL/uL (4.5-6.0); WHITE BLOOD COUNT (AUTO) 11.8 K/uL (4.3-11.0)
--- NOTE | 2019-12-09 07:40 | NUR ---
rn notes patient received on a ventilator, no sob noted, patient with fatima cath at this time and is draining, R UA midline present. Jevity 1.2 @ 75 ml per hour running. bed at the lowest setting, call light within reach, side rails up x2.
--- NOTE | 2019-12-09 08:57 | NUR ---
RT NOTE PT RCVD TRACH'D ON MECHANICAL VENT WITH CHARTED SETTINGS. SX DONE. PT TRACH IS PATENT AND SECURE. VENT PLUGGED INTO RED OUTLET. VENT ALARMS ARE ON AND AUDIBLE. AMBU BAG AT BED SIDE. NO SOB NOTED. Addendum: 12/09/19 at 0858 by SAYDA MAHAN RT Amended: Links added.
[2019-12-09] MEDS: ASCORBIC ACID 500 MG TABLET GT SCH (09:00)
[2019-12-09] MEDS: hydrALAZINE HCL 50 MG TABLET PO SCH ×3 (09:00→16:28)
[2019-12-09] MEDS: LEVETIRACETAM (250 MG) 250 MG TABLET PO SCH ×2 (09:00→21:22)
[2019-12-09] MEDS: BACLOFEN (10 MG) 10 MG TABLET GT SCH ×3 (09:00→16:28)
[2019-12-09] MEDS: CHLORHEXIDINE GLUCONATE 15 ML UDC MM SCH ×2 (09:00→21:22)
[2019-12-09] MEDS: FERROUS SULFATE (325 MG) 325 MG/TAB TABLET GT SCH (09:00)
[2019-12-09] MEDS: PROSOURCE / PROSTAT (PYXIS) 30 ML UDC GT SCH ×2 (09:01→16:28)
[2019-12-09] MEDS: DAKINS QUARTER STRENGTH (0.125%) 480 ML BOTTLE TOP SCH (09:01)
[2019-12-09] MEDS: PANTOPRAZOLE 40 MG TABLET.DR PO SCH (09:01)
[2019-12-09] MEDS: DOCUSATE SODIUM 100 MG CAPSULE PO SCH (09:01)
[2019-12-09 09:08] LABS: CALCIUM, SERUM 9.9 mg/dL (8.5-10.1); CREATININE 0.7 mg/dL (0.6-1.3); POTASSIUM 4.7 mmol/L (3.5-5.1)
[2019-12-09] MEDS: CEFEPIME 2 GM in IV D5W 100 ML IV SCH ×2 (10:15→23:37)
--- NOTE | 2019-12-09 11:46 | NUR ---
rn notes bs level of 89, no coverage needed. Feeding off from 1000 - 1400.
[2019-12-09] MEDS: INSULIN REGULAR, HUMAN 100 UNIT/ML 3 ML VIAL SQ PRN (17:36)
--- NOTE | 2019-12-09 18:06 | NUR ---
rn notes patient remains on a ventilator, no sob noted, patient shows no s/s of pain at this time. jevity 1.2 @ 75 ml per hour running for 20 hours a day. 1000 - 1400 off time. EYAL midline present and is patent at this time. bed at the lowest setting, call light within reach, side rails up x2.
[2019-12-09] MEDS: LINEZOLID 600 MG TABLET PO SCH (18:09)
--- NOTE | 2019-12-09 19:32 | NUR ---
KITCHEN MECHANIC OPENING NOTES: PATIENT RECEIVED RESTING IN BED, OBTUNDED. TOLERATING VENT SETTINGS WELL. NO S/SX OF ACUTE DISTRESS AT THIS TIME. NO SOB NOTED. PATIENT'S BREATHING IS EVEN AND UNLABORED. TELE MONITORS READING SR. GTUBE FEEDING RUNNING JEVITY 1.2 @ 75ML/HR. IV LOCATED ON R UA MIDLINE, PATENT IN INTACT,NO S/S OF INFECTION OR INFILTRATION.JACOBSON CATH IN PLACE, MODERATE URINE OUTPUT NOTED .SAFETY MEASURES HAVE BEEN PROVIDED AND IMPLEMENTED. PATIENT BED ALARM IS ON. HEAD OF BED ELEVATED. BED IS LOCKED, IN LOWEST POSITION AND SIDE RAILS UP. CALL LIGHT WITHIN REACH OF THE PATIENT. WILL CONTINUE TO MONITOR AND REASSESS FOR ANY CHANGES.
--- NOTE | 2019-12-09 20:17 | NUR ---
-Received [facility] via [facility] regarding amikacin trough level of 4.2. Will verify with pharmacy if med due @2am for amikin 35O mg. -called pharmacy and spoke with Je and advised amikacin trough level al 4.2, verify if amikin 350mg will be given at 2am, he said yes.
[2019-12-09] MEDS ORDERED: LINEZOLID 600 MG TABLET PO SCH (21:00)
--- NOTE | 2019-12-09 21:12 | NUR ---
RT NOTE PT RECEIVED TRACHED ON MECHANICAL VENTILATION. AMBU BAG @ BEDSIDE. SX DONE, TRACH SECURED AND PATENT. VENT PLUGGED TO RED OUTLET. ALARMS ON AND AUDIBLE. CONT. PULSE OX CONNECTED. NO DISTRESS NOTED AT THIS TIME. WILL CONTINUE TO MONITOR. Addendum: 12/09/19 at 2112 by LJ HU RT Amended: Links added.
[2019-12-10] VITALS (9 sets, daily range): BP systolic 122–140; BP diastolic 76–89
[2019-12-10] MEDS: BLOOD SUGAR DIAGNOSTIC 1 EACH STRIP IN SCH ×4 (00:07→17:56)
[2019-12-10] MEDS: INSULIN REGULAR, HUMAN 100 UNIT/ML 3 ML VIAL SQ PRN ×4 (00:18→17:56)
[2019-12-10] MEDS: AMIKACIN 350 MG in IV D5W 100 ML IV SCH ×4 (02:00→18:24)
--- NOTE | 2019-12-10 06:39 | NUR ---
RAW MATERIAL HANDLER CLOSING NOTES PATIENT RESTING COMFORTABLY IN BED, OBTUNDED. TOLERATING VENT SETTINGS WELL. NO SIGNS OF ACUTE DISTRESS. BREATHING EVEN AND UNLABORED. TELE MONITORS READING SR-ST. GTUBE FEEDING RUNNING JEVITY 1.2 @ 75ML/HR. IV LOCATED ON R UA MIDLINE. NEEDS AND CONCERNS ADDRESSED. SAFETY MEASURES IN PLACED. PATIENT BED IS LOCKED AND IN LOWEST POSITION. SIDE RAILS UP. CALL LIGHT WITHIN REACH OF THE PATIENT. WILL ENDORSE TO AM SHIFT FOR JENNY.
[2019-12-10 07:05] LABS: CALCIUM, SERUM 9.6 mg/dL (8.5-10.1); CREATININE 0.6 mg/dL (0.6-1.3)
--- NOTE | 2019-12-10 07:30 | NUR ---
RN OPENING NOTE Patient is resting in bed, A/O x0, obtunded, showing no signs of acute distress, on mechanical vent SIMV 6.0 TV 400 FiO2 40% PEEP 5.0 saturating 100%. Continuous pulse ox at the bedside. EYAL midline noted is clean and intact, flushing well, running TKO. Mazariegos catheter noted with clear yellow urine output. G-tube feeding noted, with 0ml residual, flushed with 30cc water. Bed is in lowest position, side rails x3 in upright position, call light is within reach. Fall, safety, seizure and aspiration precautions enforced. Will continue with plan of care.
[2019-12-10] MEDS: hydrALAZINE HCL 50 MG TABLET PO SCH ×3 (08:54→17:56)
[2019-12-10] MEDS: ASCORBIC ACID 500 MG TABLET GT SCH (08:54)
[2019-12-10] MEDS: FERROUS SULFATE (325 MG) 325 MG/TAB TABLET GT SCH (08:55)
[2019-12-10] MEDS: LINEZOLID 600 MG TABLET PO SCH (08:55)
[2019-12-10] MEDS: LEVETIRACETAM (250 MG) 250 MG TABLET PO SCH (08:55)
[2019-12-10] MEDS: BACLOFEN (10 MG) 10 MG TABLET GT SCH ×3 (08:55→17:56)
[2019-12-10] MEDS: PROSOURCE / PROSTAT (PYXIS) 30 ML UDC GT SCH ×2 (08:57→17:56)
[2019-12-10] MEDS: PANTOPRAZOLE 40 MG TABLET.DR PO SCH (08:57)
[2019-12-10] MEDS: DAKINS QUARTER STRENGTH (0.125%) 480 ML BOTTLE TOP SCH (08:57)
[2019-12-10] MEDS: DOCUSATE SODIUM 100 MG CAPSULE PO SCH (08:57)
[2019-12-10] MEDS: CHLORHEXIDINE GLUCONATE 15 ML UDC MM SCH (08:57)
[2019-12-10] MEDS: CEFEPIME 2 GM in IV D5W 100 ML IV SCH (11:08)
--- NOTE | 2019-12-10 18:30 | NUR ---
ENERGY CONSERVATION REPRESENTATIVE NOTE Patient is medically stable for discharge. Patient is obtunded, opens eyes, on mechanical ventilator, saturating 100%. Vital signs WNL. Skin assessed, photos taken and placed in chart. IV line will remain with the patient due to IV abx x 14 days. ID band removed. Patient has no belongings. Report given to RN at [facility]. G-tube clamped. All patient needs met, all due medications given, patient kept clean and dry throughout shift. Wound care completed as ordered. Patient left unit with EMS. Addendum: 12/10/19 at 1937 by DUNIA BURCH RN Mazariegos catheter emptied and left in place.
== END 2019-12-10 18:52 | DRG 710 ==
LOC: ER 10:00 → TELE1 11:17 → TELE 11-30 20:31
PROC: 5A1955Z Respiratory Ventilation, Greater than 96 Consecutive Hours (ICD-10-PCS; principal; 2019-11-28)
PROC: 0QB10ZZ Excision of Sacrum, Open Approach (ICD-10-PCS; 2019-12-03)
PROC: 05HB33Z Insertion of Infusion Device into Right Basilic Vein, Percutaneous Approach (ICD-10-PCS; 2019-12-05)
DX: A41.50 Gram-negative sepsis, unspecified (principal); N17.0 Acute kidney failure with tubular necrosis; G92 Toxic encephalopathy; Z99.11 Dependence on respirator [ventilator] status; J96.10 Chronic respiratory failure, unspecified whether with hypoxia or hypercapnia; L89.154 Pressure ulcer of sacral region, stage 4; R53.2 Functional quadriplegia; Z93.0 Tracheostomy status; G83.9 Paralytic syndrome, unspecified; K21.9 Gastro-esophageal reflux disease without esophagitis; N39.0 Urinary tract infection, site not specified; G40.909 Epilepsy, unspecified, not intractable, without status epilepticus; Z93.1 Gastrostomy status; Z87.440 Personal history of urinary (tract) infections; Z86.73 Personal history of transient ischemic attack (TIA), and cerebral infarction without residual deficits; E11.22 Type 2 diabetes mellitus with diabetic chronic kidney disease; E11.42 Type 2 diabetes mellitus with diabetic polyneuropathy; E11.621 Type 2 diabetes mellitus with foot ulcer; E87.1 Hypo-osmolality and hyponatremia; J44.9 Chronic obstructive pulmonary disease, unspecified; N40.0 Benign prostatic hyperplasia without lower urinary tract symptoms; R13.10 Dysphagia, unspecified; M62.82 Rhabdomyolysis; F29 Unspecified psychosis not due to a substance or known physiological condition; Z79.4 Long term (current) use of insulin; Z79.899 Other long term (current) drug therapy; D69.6 Thrombocytopenia, unspecified; D64.9 Anemia, unspecified; L97.419 Non-pressure chronic ulcer of right heel and midfoot with unspecified severity; M62.40 Contracture of muscle, unspecified site; Z74.09 Other reduced mobility; B96.4 Proteus (mirabilis) (morganii) as the cause of diseases classified elsewhere; B95.1 Streptococcus, group B, as the cause of diseases classified elsewhere
CPT/HCPCS: 31720; 36415; 71045-TC; 73620-TC; 80048-TC; 80053-TC; 80061-TC; 80150; 80202-TC; 81000-TC; 82248-TC; 82550-TC; 82728-TC; 82945-TC; 82962-TC; 83540-TC; 83605-TC; 83615-TC; 83735-TC; 83880; 83935-TC; 84100-TC; 84300-TC; 84443-TC; 84484-TC; 84550-TC; 85025-TC; 85378-TC; 85730-TC; 86140-TC; 87040-TC; 87070-TC; 87081-TC; 87086-TC; 87186-TC; 88304-TC; 94002-TC; 94003-TC; 94760-TC; 94762-TC; 94799-TC; 99082-TC; A4217; A6253; A6403; A6407; A7526; A9563; G0378; J0278; J0692; J1644; J1815; J2060; J3370; J3475; J3490; J7030; J7050; J7060; U0003-CS

== ENCOUNTER 2020-09-17 16:00 | Inpatient (IN) | payer MEDICAID ==
[~2020-09-17] VITALS: Ht 175.3 cm; Wt 67.1 kg
[~2020-09-17 16:00] MED LIST changes: +AMLO-212 GT; -AMLO5TAB9 GT; -Amox/Clavulanate PO; +CEFE2PIG2 IV; -NUT.237L25 GT; +TRAM50TA2 PO; +VANC1FRO2 IV
--- NOTE | 2020-09-17 16:10 | NUR ---
THE PATIENT IS BIBRA 77 FROM [facility] C/O LOW BP SYSTOLIC OF 80S PER REPORT. THE PATIENT IS VENT AND TRACH DEPENEDENT. GT, JACOBSON CATH RPESENT. LEFT HAND G 22 AND RIGHT FOOT G 24 BOTH PRESENT UPON ARRIVAL. THE PATIENT IS COVERED WITH BLANKET FOR COMFORT. WILL CONTINUE TO MONITOR.
--- NOTE | 2020-09-17 16:24 | NUR ---
RT NOTE RECEIVED PATIENT IN ER FROM TRANSPORT RT WITH ORDERED SETTINGS AND PLACED ON MECHANICAL VENT. ALARMS ON AND AUDIBLE AND VENT PLUGGED IN TO RED OUTLET. AMBU BAG BY THE BEDSIDE. TRACH TUBE IN PLACE, PATENT, AND SECURED. SX MOD THICK PALE YELLOW SECRETIONS. STABLE AT THIS TIME. MONITOR THROUGHOUT SHIFT.
[2020-09-17] MEDS ORDERED: HYDR-3972 GT (16:29)
[2020-09-17] MEDS ORDERED: NUTR1PAC14 GT (16:29)
[2020-09-17] MEDS ORDERED: VANC1.5P13 IV (16:29)
[2020-09-17] MEDS ORDERED: PIPE3.379 IV (16:29)
[2020-09-17] MEDS ORDERED: METO25TA6 GT (16:29)
[2020-09-17] MEDS ORDERED: ENOX40DI SQ (16:29)
[2020-09-17] MEDS ORDERED: AMIN887L GT (16:29)
[2020-09-17] MEDS ORDERED: FAMO20TA8 GT (16:29)
[2020-09-17] MEDS ORDERED: IV NS 0.9% 1,000 ML BAG IV ONE ×2 (16:30→17:30)
[2020-09-17 16:35] LABS: BASOPHILS % (AUTO) 0.1 % (0.0-2.0); EOSINOPHILS % (AUTO) 0.2 % (0.0-6.0); HEMATOCRIT 27 % (39-51); HEMOGLOBIN 8.5 g/dL (13.5-17.5); LYMPHOCYTES # (AUTO) 0.9 /CMM (0.8-4.8); LYMPHOCYTES % (AUTO) 5.7 % (20.0-44.0); MEAN CORPUSCULAR HGB CONC 32 g/dl (31.0-36.0); MEAN CORPUSCULAR VOLUME 89 fL (80-96); MONOCYTES # (AUTO) 0.4 /CMM (0.1-1.30); MONOCYTES % (AUTO) 2.4 % (2.0-12.0); NEUTROPHILS # (AUTO) 14.2 /CMM (1.8-8.9); NEUTROPHILS % (AUTO) 91.6 % (43.0-81.0); PLATELET COUNT (AUTO) 56 /CMM (150-450); WHITE BLOOD COUNT (AUTO) 15.5 K/uL (4.3-11.0)
[2020-09-17 16:56] LABS: CALCIUM, SERUM 8.8 mg/dL (8.5-10.1); CARBON DIOXIDE 23 mmol/L (21-32); CHLORIDE 107 mmol/L (98-107); CREATININE 4.6 mg/dL (0.6-1.3); GLUCOSE 82 mg/dL (74-106); POTASSIUM 5.3 mmol/L (3.5-5.1); SODIUM SERUM 142 mmol/L (136-145)
[2020-09-17 16:58] LABS: UREA NITROGEN, BLOOD 109 mg/dL (7-18)
[2020-09-17 17:01] LABS: ALANINE AMINOTRANSFERASE 19 U/L (12-78); ALBUMIN 1.7 g/dL (3.4-5.0); ALKALINE PHOSPHATASE 184 U/L (46-116); ASPARTATE AMINOTRANSFERASE 32 U/L (15-37); B-TYPE NATRIURETIC PEPTIDE 18764 PG/ML (0-125); BILIRUBIN,DIRECT 0.7 mg/dL (0.0-0.2); BILIRUBIN,TOTAL 0.9 mg/dL (0.2-1.0); TOTAL PROTEIN, SERUM 6.2 g/dL (6.4-8.2)
--- NOTE | 2020-09-17 17:12 | NUR ---
CALLED NURSING CONTAINER REPAIRER FOR TELE BED.
--- NOTE | 2020-09-17 17:21 | NUR ---
COVID SWAB DONE AND TAKEN IT TO THE LAB.
[2020-09-17] MEDS ORDERED: VANCOMYCIN 1 GM in IV D5W 250 ML IV ONE ×2 (17:30→19:00)
[2020-09-17] MEDS ORDERED: PIPERACILLIN /TAZOBACTAM 3.375 G in IV D5W 50 ML IV ONE (17:30)
--- NOTE | 2020-09-17 17:34 | NUR ---
REPORT GIVEN TO NURSE VIGIL
[2020-09-17 17:43] LABS: BAND % (MANUAL) 6 % (0.0-5.0); LYMPHOCYTES % (MANUAL) 9 % (16-48); MONOCYTES % (MANUAL) 6 % (0-11.0); MYELOCYTES % 2 % (0-0); NEUTROPHILS % (MANUAL) 77 (42-76)
--- NOTE | 2020-09-17 17:58 | NUR ---
MOVED THE PATIENT TO 118-1 PER ACLS PROTOCOL. PATIENT IN STABLE CONDITION.
[2020-09-17 18:00] VITALS: BP 95/56
[2020-09-17] MEDS ORDERED: Z GUARD REMEDY 2 OZ OINT TP PRN (18:00)
[2020-09-17] MEDS ORDERED: BISACODYL SUPP (10 MG) 10 MG/SUPP.RECT SUPP.RECT RC PRN (18:00)
[2020-09-17] MEDS ORDERED: NA PHOS,M-B/NA PHOS,DI-BA 1 EA ENEMA RC PRN (18:00)
[2020-09-17] MEDS ORDERED: MAG HYDROX/AL HYDROX/SIMETH 30 ML UDC PO PRN (18:00)
[2020-09-17] MEDS ORDERED: HYDROCODONE/APAP 5/325MG TABLET PO PRN (18:00)
[2020-09-17] MEDS ORDERED: DEXTROSE 50%-WATER 50 ML DISP.SYRIN IV PRN (18:00)
[2020-09-17] MEDS ORDERED: ONDANSETRON HCL/PF 4 MG/2 ML VIAL IVP PRN (18:00)
[2020-09-17] MEDS ORDERED: ZOLPIDEM TARTRATE 5 MG TABLET PO PRN (18:00)
[2020-09-17] MEDS ORDERED: IV 1/2NS 1000 ML 1,000 ML IV PRN (18:00)
[2020-09-17] MEDS ORDERED: MAGNESIUM HYDROXIDE 30 ML UDC PO PRN (18:00)
--- NOTE | 2020-09-17 18:00 | NUR ---
VANCOMYCIN AND ZOSYN ORDERED BY DR BREAUX NOT GIVEN YET IN ER DUE TO PHARACY HAS NOT DELIVERED THE MEDICATIONS YET. THE PATIENT GOT TRANSFERED TO [facility]. PHABRIANNA ([place]) IS MADE AWARE AND ASKED TO DELIVER THE MEDICATIONS TO [facility] FOR ADMINISTIONS. CARLEE SPARKS IS MADE AWARE.
[2020-09-17] MEDS ORDERED: MEROPENEM 500 MG in IV NS 0.9% 50 ML IV SCH (18:30)
--- NOTE | 2020-09-17 18:49 | NUR ---
PATIENT RECEIVED IN BED FROM ER, ON PRESCRIBED VENT SETTINGS AC 12, TV 400, FIO2 40%, PEEP 5. PATIENT IS NOT ALERT, OPENS EYES SPONTANEOUSLY. PT ON MONITOR SHOWING SR/ST 90-110. PATIENT HAS VARIOUS SKIN SCARS, DISCOLORATION, AND SACRAL WOUND, DOCUMENTED IN CHARTS. PATIENT HAS RIGHT FOOT #24G AND R EJ #22 INFUSING 1L NS BOLUS FROM ER 2 OF 2 NS BOLUSES GIVEN. ER ANTIBIOTICS NOT GIVEN, PER PHARMACY, NON-ADMIN THE MEDICATIONS AND PROCEED TO GIVEN THE SCHEDULED ABX. ALL SAFETY MEASURES IN PLACE. WILL ENDORSE ALL NEEDS TO ONCOMING RN.
[2020-09-17 19:03] LABS: C-REACTIVE PROTEIN 38.1 mg/dL (0.0-0.9)
[2020-09-17] MEDS: IPRATROPIUM NEB FS 0.5 MG/2.5 ML AMPUL.NEB NEB SCH (19:30)
[2020-09-17] MEDS ORDERED: Medication Not On Formulary EA (Ipratropium/Albuterol Sulfate (Duoneb 2.5-0.5 Mg/3 Ml So IH SCH (19:30)
[2020-09-17] MEDS: ALBUTEROL FS 2.5 MG/0.5 ML VIAL.NEB NEB SCH (19:30)
[2020-09-17] MEDS: IV NS 0.9% 1,000 ML IV PRN (19:37)
[2020-09-17 20:00] VITALS: BP 104/64
--- NOTE | 2020-09-17 20:06 | NUR ---
TELE-TD/PRESCHOOL ASSISTANT TEACHER PT SWABBED FOR COVID-19 SWAB WALKED TO LAB.
--- NOTE | 2020-09-17 20:08 | NUR ---
RT pt received on mechanical vent with current settings. trached, portex 7. trach patent and secure. vent plugged in to red outlet. alarms on and audible. ambu bag at [facility]. sputum culture collected. spare trach at bedside. no sob, no resp distress. will continue to monitor
--- NOTE | 2020-09-17 20:08 | NUR ---
RT neb tx not given due to pending covid lab results. mayelin adler, notified.
--- NOTE | 2020-09-17 20:19 | NUR ---
TELE-TD/AVIONICS REPAIR TECHNICIAN CRITICAL LACTIC ACID 2.7 REPORTED TO CRYSTAL MATHIAS DNP. NO NEW ORDERS.
[2020-09-17] MEDS: MEROPENEM 1 G in IV NS 0.9% 100 ML IV SCH (20:55)
[2020-09-17] MEDS: FIXODENT DENTURE ADHESIVE TUBE MM SCH (21:00)
[2020-09-17] MEDS ORDERED: HEPARIN SODIUM, PORCINE 5000 UNITS/1 ML VIAL SQ SCH (21:00)
[2020-09-17] MEDS: LEVETIRACETAM SOL (5 ML) 100 MG/ML UDC GT SCH (22:00)
[2020-09-17] MEDS: BLOOD SUGAR DIAGNOSTIC 1 EACH STRIP VI SCH (22:00)
[2020-09-17] MEDS: FAMOTIDINE (20 MG) 20 MG TABLET GT SCH (22:00)
[2020-09-17] MEDS: JEVITY 1.2 CAL 1,000 ML BOTTLE GT SCH (22:05)
[2020-09-18] VITALS: BP 103/59
--- NOTE | 2020-09-18 00:07 | NUR ---
TELE-TD/ANALYTICAL STRATEGIST JACOBSON CHANGED VIA STERILE PROCEDURE ORDERED. URINE COLLECTED AND SENT FOR CULTURE. PT TOLERATED WELL.
[2020-09-18] MEDS: ALBUTEROL FS 2.5 MG/0.5 ML VIAL.NEB NEB SCH ×4 (01:30→19:30)
[2020-09-18] MEDS: IPRATROPIUM NEB FS 0.5 MG/2.5 ML AMPUL.NEB NEB SCH ×4 (01:30→19:30)
[2020-09-18 04:00] VITALS: BP 118/71
[2020-09-18] MEDS: IV NS 0.9% 1,000 ML IV PRN ×2 (06:30→16:29)
[2020-09-18 07:01] LABS: BILIRUBIN,URINE NEGATIVE (NEGATIVE); COLOR,URINE YELLOW (YELLOW); LEUKOCYTE ESTERASE ,URINE MODERATE (NEGATIVE); NITRITE, URINE NEGATIVE (NEGATIVE); PH,URINE 5.5 (5.0-8.0); PROTEIN,URINE 30 mg/dl (NEGATIVE); UGLUCOSE NEGATIVE (NEGATIVE)
[2020-09-18 07:07] LABS: BASOPHILS % (AUTO) 0.1 % (0.0-2.0); EOSINOPHILS % (AUTO) 5.7 % (0.0-6.0); HEMATOCRIT 28 % (39-51); HEMOGLOBIN 9.1 g/dL (13.5-17.5); LYMPHOCYTES % (AUTO) 6.4 % (20.0-44.0); MEAN CORPUSCULAR HGB CONC 32 g/dl (31.0-36.0); MEAN CORPUSCULAR VOLUME 87 fL (80-96); MONOCYTES # (AUTO) 0.6 /CMM (0.1-1.30); MONOCYTES % (AUTO) 3.8 % (2.0-12.0); NEUTROPHILS # (AUTO) 13.3 /CMM (1.8-8.9); RED BLOOD CELL COUNT(AUTO) 3.24 MIL/uL (4.5-6.0); WHITE BLOOD COUNT (AUTO) 15.8 K/uL (4.3-11.0)
--- NOTE | 2020-09-18 07:15 | NUR ---
RN OPENING NOTES RECEIVED PT IN BED. OPENS EYES. VENT SETTINGS AC: 12, TV: 400, FIO2: 40%, PEEP: 5. ON TELE MONITOR SHOWING SR-ST. MULTIPLE SKIN ISSUES AND SACRAL WOUND NOTED. PT HAS RIGHT FOOT #24 AND R EJ #22 BOTH INTACT AND PATENT. NS RUNNING @100ML/HR INFUSING WELL. GT CHECKED FOR POSITIVE PLACEMENT. JEVITY 1.2 @75ML/HR TOLERATING FEEDING WELL. SAFETY MEASURES IN PLACE. CALL LIGHT WITHIN REACH. BED ALARM ON. BED LOCKED AND AT LOWEST POSITION WITH SIDE RAILS UP X3. WILL CONTINUE TO MONITOR.
[2020-09-18 07:16] LABS: PLATELET COUNT (AUTO) 34 /CMM (150-450)
[2020-09-18 07:27] LABS: IRON, SERUM 6 ug/dl (50-175); TOTAL IRON BINDING CAPACITY 191 ug/dl (250-450)
[2020-09-18 07:30] LABS: ALANINE AMINOTRANSFERASE 18 U/L (12-78); ALBUMIN 1.7 g/dL (3.4-5.0); ALKALINE PHOSPHATASE 139 U/L (46-116); ASPARTATE AMINOTRANSFERASE 34 U/L (15-37); B-TYPE NATRIURETIC PEPTIDE 27845 PG/ML (0-125); BILIRUBIN,TOTAL 0.7 mg/dL (0.2-1.0); CALCIUM, SERUM 9.4 mg/dL (8.5-10.1); CARBON DIOXIDE 21 mmol/L (21-32); CHLORIDE 109 mmol/L (98-107); CREATININE 4.2 mg/dL (0.6-1.3); GLUCOSE 106 mg/dL (74-106); MAGNESIUM 2.2 mg/dL (1.8-2.4); PHOSPHORUS 2.2 mg/dL (2.5-4.9); SODIUM SERUM 142 mmol/L (136-145); TOTAL PROTEIN, SERUM 6.4 g/dL (6.4-8.2)
[2020-09-18] MEDS: BLOOD SUGAR DIAGNOSTIC 1 EACH STRIP VI SCH ×4 (07:30→22:20)
[2020-09-18 07:36] LABS: CHOLESTEROL 104 mg/dL (<200); LDL 18 mg/dL (0-99); THYROID STIMULATING HORMONE 0.369 uIU/mL (0.358-3.74); TRIGLYCERIDES 320 mg/dL (30-150)
[2020-09-18 07:49] LABS: HDL CHOLESTEROL < 10 mg/dL (40-60)
[2020-09-18 08:00] VITALS: BP_SYST 100; BP_SYST 109; BP_DIAS 42; BP_DIAS 61
[2020-09-18] MEDS ORDERED: VANCOMYCIN 1 GM in IV D5W 250ml IV SCH (08:00)
[2020-09-18 08:07] LABS: UREA NITROGEN, BLOOD 104 mg/dL (7-18)
[2020-09-18] MEDS: LEVETIRACETAM SOL (5 ML) 100 MG/ML UDC GT SCH ×2 (08:54→20:44)
[2020-09-18] MEDS: FERROUS SULFATE (325 MG) 325 MG/TAB TABLET GT SCH (08:55)
[2020-09-18] MEDS: BACLOFEN (10 MG) 10 MG TABLET GT SCH ×3 (08:55→18:01)
[2020-09-18] MEDS: DOCUSATE SODIUM 100 MG CAPSULE PO SCH (08:55)
[2020-09-18] MEDS: AMLODIPINE BESYLATE 5 MG TABLET GT SCH (08:55)
[2020-09-18] MEDS: ASCORBIC ACID 500 MG TABLET GT SCH (08:55)
[2020-09-18] MEDS: METOPROLOL TARTRATE 25 MG TABLET GT SCH ×2 (08:55→18:16)
[2020-09-18] MEDS: MULTIVIT W/MINERALS 1 TAB TABLET GT SCH (08:55)
[2020-09-18] MEDS: FIXODENT DENTURE ADHESIVE TUBE MM SCH ×2 (08:56→20:44)
[2020-09-18] MEDS ORDERED: Medication Not On Formulary EA (Cran/Vitc/Mannose/Inulin/Brom (Uti-Stat Liquid) 30 ML) PO SCH (09:00)
[2020-09-18] MEDS ORDERED: ARGININE/GLUTAMINE/CALCIUM BMB 1 EACH POWD.PACK GT SCH (09:00)
[2020-09-18] MEDS ORDERED: PROSTAT (PYXIS) 30 ML UDC GT SCH (09:00)
[2020-09-18] MEDS: PROSOURCE / PROSTAT (PYXIS) 30 ML UDC GT SCH (09:25)
[2020-09-18] MEDS: INSULIN REGULAR, HUMAN 100 UNIT/ML 3 ML VIAL SQ PRN ×2 (09:45→11:53)
[2020-09-18] MEDS ORDERED: MEROPENEM 500 MG in IV NS 0.9% 50 ML IV SCH (10:00)
[2020-09-18] MEDS ORDERED: VANCOMYCIN POST DIALYSIS 500MG IV PRN (10:30)
[2020-09-18 10:45] LABS: BACTERIA,URINE Few /HPF (None Seen); SQUAMOUS EPITHELIAL CELL,UR Few /HPF (None Seen); URINE AMORPHOUS URATE Moderate /HPF (None Seen)
[2020-09-18 12:00] VITALS: BP_SYST 117; BP_SYST 88; BP_DIAS 42; BP_DIAS 51
[2020-09-18] MEDS: ACETAMINOPHEN 325 MG TABLET PO PRN ×2 (12:03→19:49)
--- NOTE | 2020-09-18 12:33 | NUR ---
RN NOTES BS OF 117. NO INSULIN COVERAGE. TEMP OF 100.6, MD AWARE. TYLENOL GIVEN. COOLING MEASURES PROVIDED.
[2020-09-18 13:06] LABS: BILIRUBIN,URINE NEGATIVE (NEGATIVE); COLOR,URINE YELLOW (YELLOW); LEUKOCYTE ESTERASE ,URINE SMALL (NEGATIVE); NITRITE, URINE NEGATIVE (NEGATIVE); PH,URINE 5.5 (5.0-8.0); PROTEIN,URINE 30 mg/dl (NEGATIVE); UGLUCOSE NEGATIVE (NEGATIVE); UROBILINOGEN,URINE 0.2 EU/dL (0.2)
[2020-09-18 13:12] LABS: CREATININE, URINE 48.5 MG/DL (30.0-125.0); URINE TOTAL PROTEIN 70.4 mg/dL (0-11.9)
[2020-09-18 13:44] LABS: BAND % (MANUAL) 3 % (0.0-5.0); EOSINOPHILS % (MANUAL) 1 % (0-4); LYMPHOCYTES % (MANUAL) 8 % (16-48); MONOCYTES % (MANUAL) 4 % (0-11.0); NEUTROPHILS % (MANUAL) 84 (42-76)
[2020-09-18 14:02] LABS: BACTERIA,URINE Few /HPF (None Seen)
[2020-09-18 14:03] LABS: SQUAMOUS EPITHELIAL CELL,UR Rare /HPF (None Seen)
[2020-09-18 14:04] LABS: URINE AMORPHOUS URATE Few /HPF (None Seen)
[2020-09-18 15:34] LABS: EOSINOPHIL,URINE None Seen
[2020-09-18 16:00] VITALS: BP_SYST 109; BP_SYST 115; BP_DIAS 59; BP_DIAS 72
--- NOTE | 2020-09-18 18:00 | NUR ---
RN NOTES BS OF 100 NO INSULIN COVERAGE.
[2020-09-18] MEDS: MORPHINE SULFATE INJ 2 MG/ML DISP.SYRIN IV PRN (18:41)
--- NOTE | 2020-09-18 18:59 | NUR ---
RN CLOSING NOTES NO SIGNIFICANT CHANGES THROUGHOUT THE SHIFT. NO SOB. NO PAIN REPORTED AT THIS TIME. DUE MEDS GIVEN. NEEDS ATTENDED. SAFETY MEASURES MAINTAINED. WILL ENDORSE TO NIGHT NURSE FOR JENNY.
--- NOTE | 2020-09-18 19:20 | NUR ---
RN OPENING NOTE RECEIVED PATIENT IN BED OBTUNDED ON TRACH/MECHANICAL VENT SETTING PORTEX 7 AC 12 TV400 FIOO2:40% PEEP 5 O2:100 HR 143 TEMPERATURE 103 IV SITE IS ON RIGHT EJ INTACT PATENT AND RIGHT FOOT INTACT PATENT ON IV HYDRATION NORMAL SALINE 0.9% RUNNING 100CC/HR ON G-TUBE FEEDING CHECK PLACEMENT IN PLACE NO RESIDUAL NOTED,JACOBSON CATHETER IN PLACE URINE DRAINING YELLOW AND CLEAR HEAD OF BED ELEVATED SAFETY MEASURE IMPLEMENT CONTINUE TO MONITOR.
[2020-09-18] MEDS: MEROPENEM 1 G in IV NS 0.9% 100 ML IV SCH (19:28)
--- NOTE | 2020-09-18 19:49 | NUR ---
RN NOTE ACETAMINOPHEN 650MG PRN GIVEN FOR TEMPERATURE 103 AND COOLING MEASURE PROVIDED CONTINUE TO MONITOR
[2020-09-18 20:00] VITALS: BP 109/61
--- NOTE | 2020-09-18 20:14 | NUR ---
RT neb tx not given due to pending covid lab results. leeann ott, notified.
[2020-09-18] MEDS: JEVITY 1.2 CAL 1,000 ML BOTTLE GT SCH (21:41)
--- NOTE | 2020-09-18 22:00 | NUR ---
RN NOTE BLOOD SUGAR IS 94 NOT REQUIRES INSULIN SLIDING SCALE CONTINUE TO MONITOR.
[2020-09-18] MEDS: FAMOTIDINE (20 MG) 20 MG TABLET GT SCH (22:20)
[2020-09-18] MEDS: *INSULIN REGULAR(HUMULIN R)HUM 100 UNIT/ML VIAL SQ PRN (22:21)
[2020-09-19] VITALS: BP 102/60
--- NOTE | 2020-09-19 | NUR ---
RN NOTE TEMPERATURE IS 98.9 CONTINUE TO MONITOR.
[2020-09-19] MEDS: IPRATROPIUM NEB FS 0.5 MG/2.5 ML AMPUL.NEB NEB SCH ×5 (01:30→20:04)
[2020-09-19] MEDS: ALBUTEROL FS 2.5 MG/0.5 ML VIAL.NEB NEB SCH ×2 (01:30→07:35)
--- NOTE | 2020-09-19 01:42 | NUR ---
RT pt received on mechanical ventilation with current settings. trached, portex 7. alarms on and audible. vent plugged in to red outlet. trach clear and patent. trach secure. pt has small red bloody secretions. leeann sagastume, aware. ambu bag at [facility]. spare trach at bedside. will continue to monitor pt.
[2020-09-19] MEDS: IV NS 0.9% 1,000 ML IV PRN ×2 (03:57→13:11)
[2020-09-19 04:00] VITALS: BP 114/73
--- NOTE | 2020-09-19 06:55 | NUR ---
RN CLOSING NOTE PATIENT REMAINS IN BED OBTUNDED ON TRACH/MECHANICAL VENT SETTING PORTEX 7 AC 12 TV400 FIOO2:40% PEEP 5 O2:100 IV SITE IS ON RIGHT EJ INTACT PATENT AND RIGHT FOOT INTACT PATENT ON IV HYDRATION NORMAL SALINE 0.9% RUNNING 100CC/HR ON G-TUBE FEEDING CHECK PLACEMENT IN PLACE NO RESIDUAL NOTED,JACOBSON CATHETER IN PLACE URINE DRAINING YELLOW AND CLEAR HEAD OF BED ELEVATED SAFETY MEASURE IMPLEMENTED,ALL DUE MEDS GIVEN MD ORDERED,KEPT CLEAN AND DRY ALL THE TIME,HEAD OF BED ELEVATED,ENDORSE NEXT COMING SHIFT FOR CONTINUATION OF CARE.
--- NOTE | 2020-09-19 07:10 | NUR ---
RN NOTE RECEIVED PATIENT ON , TRACH /VENT DEPENDENT , TRACH CARE DONE , OBTUNDED, TOLERATING CURRENT VENT SETTING NOTED, RIGHT EJ IV SITE CLEAN, DRY AND INTACT, INTACT, NORMAL SALINE 0.9% RUNNING 100CC/HR ON G-TUBE FEEDING CHECK PLACEMENT IN PLACE NO RESIDUAL NOTED,JACOBSON CATHETER IN PLACE URINE DRAINING YELLOW AND CLEAR HEAD OF BED ELEVATED SAFETY MEASURE IMPLEMENT CONTINUE TO MONITOR.
[2020-09-19 08:00] VITALS: BP 139/79
[2020-09-19] MEDS ORDERED: VANCOMYCIN 1 GM in IV D5W 250ml IV SCH (08:00)
--- NOTE | 2020-09-19 08:30 | NUR ---
RT NOTE TX NOT GIVEN DUE TO PENDING COVID RESULTS. NO DISTRESS NOTED AT THIS TIME.
[2020-09-19] MEDS: LEVETIRACETAM SOL (5 ML) 100 MG/ML UDC GT SCH ×2 (08:39→21:02)
[2020-09-19] MEDS: DOCUSATE SODIUM 100 MG CAPSULE PO SCH (08:39)
[2020-09-19] MEDS: ASCORBIC ACID 500 MG TABLET GT SCH (08:39)
[2020-09-19] MEDS: FERROUS SULFATE (325 MG) 325 MG/TAB TABLET GT SCH (08:39)
[2020-09-19] MEDS: BACLOFEN (10 MG) 10 MG TABLET GT SCH ×3 (08:39→16:21)
[2020-09-19] MEDS: AMLODIPINE BESYLATE 5 MG TABLET GT SCH (08:40)
[2020-09-19] MEDS: MULTIVIT W/MINERALS 1 TAB TABLET GT SCH (08:40)
[2020-09-19] MEDS: METOPROLOL TARTRATE 25 MG TABLET GT SCH ×2 (08:41→16:20)
[2020-09-19] MEDS: PROSOURCE / PROSTAT (PYXIS) 30 ML UDC GT SCH (08:42)
[2020-09-19] MEDS: ACETAMINOPHEN 325 MG TABLET PO PRN ×2 (08:42→21:26)
[2020-09-19] MEDS: BLOOD SUGAR DIAGNOSTIC 1 EACH STRIP VI SCH ×4 (08:43→21:21)
[2020-09-19] MEDS: FIXODENT DENTURE ADHESIVE TUBE MM SCH ×2 (09:00→21:00)
--- NOTE | 2020-09-19 09:00 | NUR ---
RN NOTES SMALL AMOUNT OF BLOODY SECRETIONS NOTED DURING TRACH SUCTIONING , DR OLSON NOTIFIED , CONTINUE TO MONITOR .
[2020-09-19 09:01] LABS: BASOPHILS % (AUTO) 0.1 % (0.0-2.0); EOSINOPHILS % (AUTO) 0.4 % (0.0-6.0); HEMATOCRIT 27 % (39-51); HEMOGLOBIN 8.7 g/dL (13.5-17.5); LYMPHOCYTES # (AUTO) 1.2 /CMM (0.8-4.8); LYMPHOCYTES % (AUTO) 8.9 % (20.0-44.0); MEAN CORPUSCULAR HGB CONC 33 g/dl (31.0-36.0); MEAN CORPUSCULAR VOLUME 87 fL (80-96); MONOCYTES # (AUTO) 0.6 /CMM (0.1-1.30); MONOCYTES % (AUTO) 4.6 % (2.0-12.0); NEUTROPHILS # (AUTO) 11.8 /CMM (1.8-8.9); RED BLOOD CELL COUNT(AUTO) 3.09 MIL/uL (4.5-6.0); WHITE BLOOD COUNT (AUTO) 13.8 K/uL (4.3-11.0)
[2020-09-19 09:14] LABS: ALBUMIN 1.6 g/dL (3.4-5.0); BILIRUBIN,TOTAL 0.6 mg/dL (0.2-1.0); CALCIUM, SERUM 9.6 mg/dL (8.5-10.1); CREATININE 3.9 mg/dL (0.6-1.3); MAGNESIUM 2.1 mg/dL (1.8-2.4); PHOSPHORUS 2.8 mg/dL (2.5-4.9); POTASSIUM 5.2 mmol/L (3.5-5.1); TOTAL PROTEIN, SERUM 6.3 g/dL (6.4-8.2)
[2020-09-19 09:20] LABS: PLATELET COUNT (AUTO) 21 /CMM (150-450)
--- NOTE | 2020-09-19 10:28 | NUR ---
WOUND CARE CONSULT: PT PRESENTS WITH MULTIPLE SKIN ISSUES, WOUNDS AND SCARS, PRESENT ON ADMISSION. RECOMMEND SURGICAL AND DPM CONSULTS. DR DARBY MCKENNA AND DR QUINONES NOTIFIED OF CONSULT REQUESTS. FIRST STEP LOW AIRLOSS MATTRESS ORDERED. ALL SKIN PROTECTION RECOMMENDATIONS MADE AND DISCUSSED WITH NURSING STAFF. MD IN AGREEMENT WITH PLAN OF CARE.
[2020-09-19 10:46] LABS: ABG BASE EXCESS -4.6 mmol/L; ABG OXYGEN SATURATION 98.6 % (92.0-98.5); ABG PCO2 33.6 mmHg (35.0-45.0); ABG PH 7.388 (7.350-7.450); AaDO2 121.6 mmHg; COHb 0.4 % (0.5-1.5); MetHb 0.2 % (0.0-1.5); PEEP,BG 5 cm H2O; SITE, ABG Right Radial; VT, ABG 400 mL
[2020-09-19 11:37] LABS: BAND % (MANUAL) 1 % (0.0-5.0); EOSINOPHILS % (MANUAL) 1 % (0-4); LYMPHOCYTES % (MANUAL) 8 % (16-48); MONOCYTES % (MANUAL) 2 % (0-11.0); NEUTROPHILS % (MANUAL) 88 (42-76)
[2020-09-19 12:00] VITALS: BP 122/60
[2020-09-19] MEDS: DAKINS QUARTER STRENGTH (0.125%) 480 ML BOTTLE TOP SCH (12:14)
[2020-09-19] MEDS: JEVITY 1.2 CAL 1,000 ML BOTTLE GT SCH (12:14)
[2020-09-19] MEDS: INSULIN REGULAR, HUMAN 100 UNIT/ML 3 ML VIAL SQ PRN (12:16)
[2020-09-19 16:32] VITALS: BP 120/70
--- NOTE | 2020-09-19 18:18 | NUR ---
RN NOTE PATIENT REMAINS IN BED , OBTUNDED ON TRACH/MECHANICAL VENT, TOLERAING VENT SETTING WELL, NO SOB NOTED, IV SITES CLEAN, DRY AND INTACT , NS AT 100CC/HR RUNNING , ON G-TUBE FEEDING CHECK PLACEMENT IN PLACE NO RESIDUAL NOTED,JACOBSON CATHETER IN PLACE URINE DRAINING YELLOW AND CLEAR HEAD OF BED ELEVATED SAFETY MEASURE IMPLEMENTED,CRITICAL LAB RESULTS REPORTED TO MANAGER POWER, KEPT CLEAN AND DRY ALL THE TIME,HEAD OF BED ELEVATED, WILL ENDORSE TO EDITING COMPUTER PUBLISHER NURSE FOR CONTINUITY OF CARE
[2020-09-19 20:00] VITALS: BP 105/67
[2020-09-19 20:23] LABS: D-DIMER 2.36 mg/L(FEU (0.17-0.50)
--- NOTE | 2020-09-19 20:45 | NUR ---
RN NOTES, INFORMED CRYSTAL MATHIAS CLERK TELEVISION PRODUCTION CRITICAL VALUE FOR FIBRINOGEN 900, AND HE REPLIED WITH NO NEW ORDERS, WILL CONTINUE TO MONITOR CLOSELY.
[2020-09-19] MEDS: MEROPENEM 1 G in IV NS 0.9% 100 ML IV SCH (21:01)
[2020-09-19] MEDS: FAMOTIDINE (20 MG) 20 MG TABLET GT SCH (21:02)
[2020-09-19] MEDS: *INSULIN REGULAR(HUMULIN R)HUM 100 UNIT/ML VIAL SQ PRN (21:22)
[2020-09-20] VITALS: BP 114/73
[2020-09-20] MEDS: IV NS 0.9% 1,000 ML IV PRN (00:02)
[2020-09-20] MEDS: IPRATROPIUM NEB FS 0.5 MG/2.5 ML AMPUL.NEB NEB SCH ×4 (01:51→19:55)
[2020-09-20 04:00] VITALS: BP 132/83
[2020-09-20 05:10] LABS: OCCULT BLOOD STOOL NEGATIVE (NEGATIVE)
[2020-09-20] MEDS: JEVITY 1.2 CAL 1,000 ML BOTTLE GT SCH ×2 (05:30→20:55)
[2020-09-20] MEDS: MORPHINE SULFATE INJ 2 MG/ML DISP.SYRIN IV PRN (06:15)
--- NOTE | 2020-09-20 06:18 | NUR ---
RT NOTE PT REC'D TRACHED ON [facility] VENT ON AC MODE SETTINGS CHARTED. TRACH IS PATENT. PT SHOWS NO SIGNS OF RESP DISTRESS OR SOB. PT SX'D FOR THICK MOD AMT OF BLOODY SECRETIONS. ALARMS ARE SET AND AUDIBLE. VENT PLUGGED INTO RED OUTLET. AMBU BAG AND EMERGENCY SPARE TRACH BEDSIDE. WILL CONTINUE TO MONITOR CLOSELY. Addendum: 09/20/20 at 0620 by JAMEE CARTER RT Amended: Links added.
[2020-09-20 06:31] LABS: BASOPHILS % (AUTO) 0.2 % (0.0-2.0); EOSINOPHILS % (AUTO) 0.2 % (0.0-6.0); HEMATOCRIT 30 % (39-51); HEMOGLOBIN 9.7 g/dL (13.5-17.5); LYMPHOCYTES # (AUTO) 0.8 /CMM (0.8-4.8); LYMPHOCYTES % (AUTO) 8.1 % (20.0-44.0); MEAN CORPUSCULAR HGB CONC 33 g/dl (31.0-36.0); MEAN CORPUSCULAR VOLUME 86 fL (80-96); MONOCYTES # (AUTO) 0.5 /CMM (0.1-1.30); MONOCYTES % (AUTO) 4.9 % (2.0-12.0); NEUTROPHILS # (AUTO) 9.1 /CMM (1.8-8.9); NEUTROPHILS % (AUTO) 86.6 % (43.0-81.0); RED BLOOD CELL COUNT(AUTO) 3.45 MIL/uL (4.5-6.0); WHITE BLOOD COUNT (AUTO) 10.5 K/uL (4.3-11.0)
[2020-09-20 06:44] LABS: PLATELET COUNT (AUTO) 20 /CMM (150-450)
[2020-09-20 06:49] LABS: CALCIUM, SERUM 9.5 mg/dL (8.5-10.1); CREATININE 3.4 mg/dL (0.6-1.3); PHOSPHORUS 3.7 mg/dL (2.5-4.9); POTASSIUM 5.1 mmol/L (3.5-5.1)
--- NOTE | 2020-09-20 07:19 | NUR ---
RN CLOSING NOTE PATIENT REMAINS IN BED , OBTUNDED ON TRACH/MECHANICAL VENT, TOLERATING VENT SETTING WELL, NO SOB NOTED, IV SITES CLEAN, DRY AND INTACT , NO SIGNIFICANT CHANGE IN CONDITION DURING THE NIGHT, NO COVERAGE PER SLIDING SCALE AT MIDNIGHT, KEPT CLEAN AND DRY ALL THE TIME, HEAD OF BED ELEVATED, WILL ENDORSE CONTINUITY OF CARE TO ONCOMING NURSE.
[2020-09-20 07:30] LABS: D-DIMER 3.57 mg/L(FEU (0.17-0.50)
[2020-09-20 08:00] VITALS: BP 132/76
--- NOTE | 2020-09-20 08:00 | NUR ---
RN CLOSING NOTE PATIENT R IN BED , OBTUNDED ON TRACH/MECHANICAL VENT, TOLERATING VENT SETTING WELL, NO SOB NOTED, IV SITES CLEAN, DRY AND INTACT , KEPT CLEAN AND DRY ALL THE TIME, HEAD OF BED ELEVATED,, ON TELE MONITOR SR HR 124 AT THIS TIME , WITH JACOBSON CATH TO GRAVITY WITH YELLOW CLEAR URINE, SEEN BY DR OLSON NOTIFIED THAT TRACH WITH SOME BLEEDING NOTED ,ON IVF ORDERED T 100.9TYLENOL VIA G TUBE GIVEN,BED IN LOWEST AND LOCKED POSITION, SEEN BY FOOT DR JEFFERY ON BOTH FEET DONE ORDERED
[2020-09-20 08:07] LABS: IMMUNOGLOBULIN A, SERUM 208 mg/dL (90-386); IMMUNOGLOBULIN G, SERUM 1036 mg/dL (603-1613); IMMUNOGLOBULIN M, SERUM 54 mg/dL (20-172); PTH, INTACT 12 pg/mL (15-65)
[2020-09-20] MEDS: FIXODENT DENTURE ADHESIVE TUBE MM SCH ×2 (09:00→20:34)
--- NOTE | 2020-09-20 09:00 | NUR ---
MANUFACTURING SALES REPRESENTATIVE NOTE FIXODENT NOT USING AT THIS TIME
[2020-09-20 09:07] LABS: *SPE A/G RATIO 0.5 (0.7-1.7); *SPE ALBUMIN 1.8 g/dL (2.9-4.4); *SPE ALPHA-1-GLOBULIN 0.4 g/dL (0.0-0.4); *SPE BETA GLOBULIN 0.9 g/dL (0.7-1.3); *SPE GLOBULIN, TOTAL 3.3 g/dL (2.2-3.9); *SPE M-SPIKE Not Observed g/dL (Not Observed); *SPEGAMMA GLOBULIN 0.9 g/dL (0.4-1.8)
[2020-09-20] MEDS: LEVETIRACETAM SOL (5 ML) 100 MG/ML UDC GT SCH ×2 (09:17→20:33)
[2020-09-20] MEDS: ACETAMINOPHEN 325 MG TABLET PO PRN ×3 (09:18→20:40)
[2020-09-20] MEDS: AMLODIPINE BESYLATE 5 MG TABLET GT SCH (09:18)
[2020-09-20] MEDS: DOCUSATE SODIUM 100 MG CAPSULE PO SCH (09:18)
[2020-09-20] MEDS: BACLOFEN (10 MG) 10 MG TABLET GT SCH ×3 (09:19→16:46)
[2020-09-20] MEDS: PROSOURCE / PROSTAT (PYXIS) 30 ML UDC GT SCH (09:20)
[2020-09-20] MEDS: MULTIVIT W/MINERALS 1 TAB TABLET GT SCH (09:20)
[2020-09-20] MEDS: ASCORBIC ACID 500 MG TABLET GT SCH (09:20)
[2020-09-20] MEDS: DAKINS QUARTER STRENGTH (0.125%) 480 ML BOTTLE TOP SCH (09:21)
[2020-09-20] MEDS: FERROUS SULFATE (325 MG) 325 MG/TAB TABLET GT SCH (09:25)
[2020-09-20] MEDS: METOPROLOL TARTRATE 25 MG TABLET GT SCH ×2 (09:25→16:47)
[2020-09-20] MEDS: BLOOD SUGAR DIAGNOSTIC 1 EACH STRIP VI SCH ×3 (09:26→17:13)
[2020-09-20 10:05] LABS: LYMPHOCYTES % (MANUAL) 8 % (16-48); MONOCYTES % (MANUAL) 6 % (0-11.0); MYELOCYTES % 1 % (0-0); NEUTROPHILS % (MANUAL) 85 (42-76)
[2020-09-20 10:08] LABS: *ANA ANTI-CENTROMERE B AB <0.2 AI (0.0-0.9); *ANA ANTI-DNA(DS) AB, QN <1 IU/mL (0-9); *ANA ANTI-JO-1 <0.2 AI (0.0-0.9); *ANA ANTICHROMATIN ANTIBODY <0.2 AI (0.0-0.9); *ANA RNP ANTIBODIES 0.2 AI (0.0-0.9); *ANA SJOGREN'S ANTI-SS-A <0.2 AI (0.0-0.9); *ANA SJOGREN'S ANTI-SS-B 0.3 AI (0.0-0.9); *ANAANTI-SCLERODERMA-70 AB <0.2 AI (0.0-0.9); *ANASMITH AB <0.2 AI (0.0-0.9)
[2020-09-20] MEDS: IV D5W 1,000 ML IV PRN ×2 (10:45→22:38)
[2020-09-20 12:00] VITALS: BP 124/75
--- NOTE | 2020-09-20 12:30 | NUR ---
POWER AND RECOVERY SUPERVISOR NOTE TURN REPOSITION, RT AT BEDSIDE MOUTH AND TRACH CARE DONE , WILL CONT TO MONITOR
[2020-09-20] MEDS: INSULIN REGULAR, HUMAN 100 UNIT/ML 3 ML VIAL SQ PRN ×2 (12:42→23:40)
[2020-09-20] MEDS: DAPTOMYCIN IV SCH (14:59)
[2020-09-20] MEDS: NS 0.9% IV SCH (14:59)
--- NOTE | 2020-09-20 15:00 | NUR ---
DATA REPORTING ANALYST NOTE BARRON LUNA RN SUPERVISOR ESTIMATOR AND DRAFTER AT BEDSIDE NOTIFIED THAT PATIENT HAS EPISODES TACHYCARDIA RANGE 124 LAST NIGHT AWARE THAT PATIENT ON METOPROLOL STATED THAT WILL CHECK IT OUT ALSO AWARE THAT TRACH SIDE WITH SOME BLEEDING AND DR OLSON EXTRUDING PRESS ADJUSTER NOTIFIED
[2020-09-20 16:41] VITALS: BP 143/75
--- NOTE | 2020-09-20 17:16 | NUR ---
QUARTER SECTION IRONER NOTE RT AT BEDSIDE TRACH AND ORAL CARE DONE ALL NEEDS ATTENDED ,WILL MONITOR
[2020-09-20] MEDS ORDERED: DEXTROSE 50%-WATER 50 ML DISP.SYRIN IV PRN (17:30)
[2020-09-20] MEDS: BLOOD SUGAR DIAGNOSTIC 1 EACH STRIP IN SCH ×2 (17:47→23:40)
--- NOTE | 2020-09-20 18:39 | NUR ---
ASSISTANT DISTRICT ATTORNEY NOTE PATIENT IN BED , WITH TRACH TO VENT SETTING ORDERED, FREQUENT SUCTION SUCTION DONE,ON TELE MONITOR ST HR 104 AT THIS TIME, WITH G TUBE FEEDING ORDERED ,NO RESIDUAL NOTED ,KEEP HOB ELEVATED AT ALL TIME, RT IG HL INTACT AND FLUSHED WELL, ON IVF ORDERED , BED IN LOWEST AND LOCKED POSITION , CALL LIGHT WITHIN REACH .WILL CONT TO MONITOR CLOSELY ,
[2020-09-20 20:00] VITALS: BP 140/73
--- NOTE | 2020-09-20 20:32 | NUR ---
RT NOTE PT REC'D TRACHED ON [facility] VENT ON AC MODE SETTINGS CHARTED. TRACH IS PATENT. PT SHOWS NO SIGNS OF RESP DISTRESS OR SOB. PT SX'D FOR THICK mod amt of bloody secretions. ALARMS ARE SET AND AUDIBLE. VENT PLUGGED INTO RED OUTLET. AMBU BAG AND EMERGENCY SPARE TRACH BEDSIDE. WILL CONTINUE TO MONITOR CLOSELY. Addendum: 09/20/20 at 2031 by JAMEE CARTER RT Amended: Links added.
[2020-09-20] MEDS: MEROPENEM 1 G in IV NS 0.9% 100 ML IV SCH (20:33)
[2020-09-20] MEDS: FAMOTIDINE (20 MG) 20 MG TABLET GT SCH (21:16)
--- NOTE | 2020-09-20 23:15 | NUR ---
SEMICONDUCTOR PACKAGES TESTER NOTES TYLENOL GIVEN ORDERED , WILL CONTINUE TO MONITOR PTS.
[2020-09-21] VITALS: BP 140/81
[2020-09-21] MEDS: IPRATROPIUM NEB FS 0.5 MG/2.5 ML AMPUL.NEB NEB SCH ×4 (01:36→19:08)
--- NOTE | 2020-09-21 02:15 | NUR ---
RN NOTES, ENDORSED PATIENT TO YAHIR BEJARANO FOR CONTINUATION OF CARE, PT IN STABLE CONDITION.
[2020-09-21 04:00] VITALS: BP 141/75
[2020-09-21 06:12] LABS: BASOPHILS % (AUTO) 0.3 % (0.0-2.0); EOSINOPHILS % (AUTO) 1.1 % (0.0-6.0); HEMATOCRIT 27 % (39-51); HEMOGLOBIN 8.8 g/dL (13.5-17.5); LYMPHOCYTES # (AUTO) 1.9 /CMM (0.8-4.8); LYMPHOCYTES % (AUTO) 14.8 % (20.0-44.0); MEAN CORPUSCULAR HGB CONC 33 g/dl (31.0-36.0); MEAN CORPUSCULAR VOLUME 86 fL (80-96); MONOCYTES # (AUTO) 1.6 /CMM (0.1-1.30); MONOCYTES % (AUTO) 12.7 % (2.0-12.0); NEUTROPHILS # (AUTO) 9.2 /CMM (1.8-8.9); NEUTROPHILS % (AUTO) 71.1 % (43.0-81.0); RED BLOOD CELL COUNT(AUTO) 3.16 MIL/uL (4.5-6.0)
[2020-09-21] MEDS: BLOOD SUGAR DIAGNOSTIC 1 EACH STRIP IN SCH ×3 (06:24→17:35)
[2020-09-21] MEDS: INSULIN REGULAR, HUMAN 100 UNIT/ML 3 ML VIAL SQ PRN ×3 (06:24→17:36)
[2020-09-21 06:49] LABS: CALCIUM, SERUM 9.3 mg/dL (8.5-10.1); CREATININE 2.8 mg/dL (0.6-1.3); MAGNESIUM 2.2 mg/dL (1.8-2.4); POTASSIUM 4.7 mmol/L (3.5-5.1)
--- NOTE | 2020-09-21 07:30 | NUR ---
SLITTER CREASER SLOTTER OPERATOR CLOSING NOTES RECEIVED PT IN BED, OBTUNDED. ON TRACH/MECH VENT, TOLERATING VENT SETTINGS WELL WITH NO SOB NOTED. IV SITES RIGHT IJ AND RIGHT FOOT; PATENT AND INTACT. ASPIRATION PRECAUTIONS TAKEN. ON TELE MONITOR ST HR @100S. WITH JACOBSON CATH DRAINING INTO YELLOW CLEAR URINE; INTACT. STATED FEEDING AT 0600 OF JEVITY 1.2 @75ML/HR X20 HOURS,TOLERATING FEEDING WELL. WOUND CARE PERFORMED ORDERED. SAFETY MEASURES IN PLACE, SIDE RAIL UP X3, CALL LIGHT WITHIN REACH, BED LOCKED AND BED ALARMS ON.WILL CONTINUE TO MONITOR.
--- NOTE | 2020-09-21 07:30 | NUR ---
RN OPENING NOTES RECEIVED PT IN BED, OBTUNDED. ON TRACH/MECH VENT, TOLERATING VENT SETTINGS WELL. NO SOB NOTED. IV SITES INTACT AND PATENT. HOB ELEVATED. ON TELE MONITOR SR-ST HR @100S. WITH JACOBSON CATH DRAINING INTO YELLOW CLEAR URINE. GT CHECKED FOR POSITIVE PLACEMENT. FEEDING OF JEVITY 1.2 @75ML/HR, TOLERATING FEEDING WELL. SAFETY MEASURES IN PLACE. CALL LIGHT WITHIN REACH. BED LOCKED AND AT LOWEST POSITION WITH SIDE RAILS UP X2. WILL CONTINUE TO MONITOR.
[2020-09-21 08:00] VITALS: BP 149/78
[2020-09-21 08:05] LABS: PLATELET COUNT (AUTO) 38 /CMM (150-450)
[2020-09-21] MEDS: BACLOFEN (10 MG) 10 MG TABLET GT SCH ×3 (08:57→16:57)
[2020-09-21] MEDS: FERROUS SULFATE (325 MG) 325 MG/TAB TABLET GT SCH (08:57)
[2020-09-21] MEDS: METOPROLOL TARTRATE 25 MG TABLET GT SCH ×2 (08:57→16:58)
[2020-09-21] MEDS: LEVETIRACETAM SOL (5 ML) 100 MG/ML UDC GT SCH ×2 (08:57→21:22)
[2020-09-21] MEDS: MULTIVIT W/MINERALS 1 TAB TABLET GT SCH (08:58)
[2020-09-21] MEDS: DOCUSATE SODIUM 100 MG CAPSULE PO SCH (08:58)
[2020-09-21] MEDS: ASCORBIC ACID 500 MG TABLET GT SCH (08:58)
[2020-09-21] MEDS: FIXODENT DENTURE ADHESIVE TUBE MM SCH ×2 (08:58→21:00)
[2020-09-21] MEDS: PROSOURCE / PROSTAT (PYXIS) 30 ML UDC GT SCH (08:58)
[2020-09-21] MEDS: DAKINS QUARTER STRENGTH (0.125%) 480 ML BOTTLE TOP SCH (08:58)
[2020-09-21] MEDS: AMLODIPINE BESYLATE 5 MG TABLET GT SCH (08:58)
[2020-09-21] MEDS ORDERED: VANCOMYCIN 1 GM in IV D5W 250ml IV SCH (09:00)
[2020-09-21] MEDS: IV D5W 1,000 ML IV PRN ×2 (09:24→19:38)
[2020-09-21 09:47] LABS: LYMPHOCYTES % (MANUAL) 10 % (16-48); MONOCYTES % (MANUAL) 12 % (0-11.0); NEUTROPHILS % (MANUAL) 78 (42-76)
--- NOTE | 2020-09-21 11:58 | NUR ---
RN NOTES BS OF 104, NO INSULIN COVERAGE.
[2020-09-21 12:00] VITALS: BP 150/79
[2020-09-21] MEDS: ACETAMINOPHEN 325 MG TABLET PO PRN ×2 (12:06→17:07)
[2020-09-21 16:00] VITALS: BP 128/68
[2020-09-21] MEDS: JEVITY 1.2 CAL 1,000 ML BOTTLE GT SCH (17:06)
--- NOTE | 2020-09-21 18:00 | NUR ---
RN NOTES BS OF 119, NO INSULIN COVERAGE.
--- NOTE | 2020-09-21 18:43 | NUR ---
RN CLOSING NOTES NO SIGNIFICANT CHANGES THROUGHOUT THE SHIFT. IN STABLE CONDITION. NO SOB. NO PAIN REPORTED AT THIS TIME. ALL DUE MEDS GIVEN. NEEDS ATTENDED. SAFETY MEASURES STILL IN PLACE. WILL ENDORSE TO NIGHT NURSE FOR JENNY.
[2020-09-21] MEDS: MEROPENEM 1 G in IV NS 0.9% 100 ML IV SCH (19:38)
[2020-09-21 20:00] VITALS: BP 133/69
--- NOTE | 2020-09-21 20:00 | NUR ---
FIXODENT NOT GIVEN PT DOES NOT HAVE DENTURES.
--- NOTE | 2020-09-21 20:00 | NUR ---
RN NOTE RECEIVED PT IN BED OBTUNDED, ON MECHANICAL VENT VIA TRACH, NO SOB, SATING 100%, PT ON TELE MONITOR SHOWING SR WITH HR IN 90s. PT HAS G TUBE CHECKED FOR PLACEMENT, JEVITY 1.2 RUNNING AT 75 ML/H 40 ML RESIDUAL NOTED. SAFETY MEASURES IN PLACE.
[2020-09-21] MEDS: FAMOTIDINE (20 MG) 20 MG TABLET GT SCH (21:22)
[2020-09-22] VITALS: BP 140/76
[2020-09-22] MEDS: BLOOD SUGAR DIAGNOSTIC 1 EACH STRIP IN SCH ×4 (00:56→17:58)
[2020-09-22] MEDS: IPRATROPIUM NEB FS 0.5 MG/2.5 ML AMPUL.NEB NEB SCH ×4 (01:32→20:28)
[2020-09-22 04:00] VITALS: BP 134/76
[2020-09-22] MEDS: IV D5W 1,000 ML IV PRN ×2 (05:29→23:13)
[2020-09-22 06:43] LABS: CALCIUM, SERUM 8.6 mg/dL (8.5-10.1); CREATININE 2.3 mg/dL (0.6-1.3); MAGNESIUM 1.9 mg/dL (1.8-2.4); POTASSIUM 4.5 mmol/L (3.5-5.1)
[2020-09-22 07:17] LABS: BASOPHILS % (AUTO) 0.1 % (0.0-2.0); EOSINOPHILS % (AUTO) 1.4 % (0.0-6.0); HEMATOCRIT 25 % (39-51); HEMOGLOBIN 7.9 g/dL (13.5-17.5); LYMPHOCYTES # (AUTO) 2.2 /CMM (0.8-4.8); LYMPHOCYTES % (AUTO) 16.6 % (20.0-44.0); MEAN CORPUSCULAR HGB CONC 32 g/dl (31.0-36.0); MEAN CORPUSCULAR VOLUME 87 fL (80-96); MONOCYTES # (AUTO) 1.5 /CMM (0.1-1.30); MONOCYTES % (AUTO) 11.6 % (2.0-12.0); NEUTROPHILS # (AUTO) 9.2 /CMM (1.8-8.9); NEUTROPHILS % (AUTO) 70.3 % (43.0-81.0); PLATELET COUNT (AUTO) 66 /CMM (150-450); RED BLOOD CELL COUNT(AUTO) 2.85 MIL/uL (4.5-6.0); WHITE BLOOD COUNT (AUTO) 13.1 K/uL (4.3-11.0)
--- NOTE | 2020-09-22 07:37 | NUR ---
REPORT GIVEN TO ONCOMING SHIFT FOR JENNY.
[2020-09-22 08:00] VITALS: BP 137/76
[2020-09-22] MEDS: BACLOFEN (10 MG) 10 MG TABLET GT SCH ×3 (08:55→17:06)
[2020-09-22] MEDS: LEVETIRACETAM SOL (5 ML) 100 MG/ML UDC GT SCH ×2 (08:55→21:22)
[2020-09-22] MEDS: FERROUS SULFATE (325 MG) 325 MG/TAB TABLET GT SCH (08:55)
[2020-09-22] MEDS: AMLODIPINE BESYLATE 5 MG TABLET GT SCH (08:56)
[2020-09-22] MEDS: PROSOURCE / PROSTAT (PYXIS) 30 ML UDC GT SCH (08:56)
[2020-09-22] MEDS: METOPROLOL TARTRATE 25 MG TABLET GT SCH ×2 (08:56→17:05)
[2020-09-22] MEDS: MULTIVIT W/MINERALS 1 TAB TABLET GT SCH (08:56)
[2020-09-22] MEDS: ASCORBIC ACID 500 MG TABLET GT SCH (08:56)
[2020-09-22] MEDS: FIXODENT DENTURE ADHESIVE TUBE MM SCH ×2 (08:57→21:21)
[2020-09-22] MEDS: DAKINS QUARTER STRENGTH (0.125%) 480 ML BOTTLE TOP SCH (08:57)
[2020-09-22] MEDS: DOCUSATE SODIUM 100 MG CAPSULE PO SCH (08:57)
[2020-09-22 10:19] LABS: EOSINOPHILS % (MANUAL) 1 % (0-4); LYMPHOCYTES % (MANUAL) 15 % (16-48); MONOCYTES % (MANUAL) 12 % (0-11.0); NEUTROPHILS % (MANUAL) 72 (42-76)
[2020-09-22 12:00] VITALS: BP 129/74
[2020-09-22] MEDS: INSULIN REGULAR, HUMAN 100 UNIT/ML 3 ML VIAL SQ PRN ×2 (12:13→17:58)
--- NOTE | 2020-09-22 12:14 | NUR ---
RN NOTES BS OF 109, NO INSULIN COVERAGE.
[2020-09-22] MEDS: JEVITY 1.2 CAL 1,000 ML BOTTLE GT SCH (12:32)
[2020-09-22] MEDS: DAPTOMYCIN IV SCH (14:54)
[2020-09-22] MEDS: NS 0.9% IV SCH (14:54)
[2020-09-22 16:00] VITALS: BP 125/70
--- NOTE | 2020-09-22 18:13 | NUR ---
RECEIVED PATIENT ON VENT SETTINGS OF AC 12, VT 400, FIO2 40%, PEEP 5. HAS A PORTEX 7 CUFFED TRACH. AIRWAY PATENT AND SECURE. SATURATIONS AT 100%. PATIENT TACHYPNEIC DUE TO LOW GRADE FEVER. AMBU BAG AT THE BEDSIDE. VENT PLUGGED INTO RED OUTLET. EMERGENCY TRACH AT THE BEDSIDE.
--- NOTE | 2020-09-22 19:55 | NUR ---
RN NOTE PATIENT IN BED OBTUNDED. ON TRACH/MECH VENT, TOLERATING VENT SETTINGS WELL. O2 SAT WNL. NO SOB NOTED. WITH JACOBSON CATH DRAINING URINE TO GRAVITY. HEAD OF BED ELEVATED, JEVITY 1.2 @ 75ML/HR, GT PATENT AND INTACT WITH POSITIVE PLACEMENT. EYAL MIDLINE PATENT AND INTACT, FLUSHED WITH NS. SAFETY MEASURES IN PLACE. CALL LIGHT WITHIN REACH. BED LOCKED AND AT LOWEST POSITION WITH SIDE RAILS UP X2. WILL CONTINUE TO MONITOR.
[2020-09-22 20:00] VITALS: BP 139/78
[2020-09-22] MEDS: MEROPENEM 1 G in IV NS 0.9% 100 ML IV SCH (20:07)
[2020-09-22] MEDS: FAMOTIDINE (20 MG) 20 MG TABLET GT SCH (21:22)
[2020-09-23] VITALS: BP 137/75
[2020-09-23] MEDS: BLOOD SUGAR DIAGNOSTIC 1 EACH STRIP IN SCH ×5 (00:10→23:11)
[2020-09-23] MEDS: INSULIN REGULAR, HUMAN 100 UNIT/ML 3 ML VIAL SQ PRN ×3 (00:11→23:10)
--- NOTE | 2020-09-23 00:11 | NUR ---
BLOOD SUGAR 113, NO INSULIN COVERAGE GIVEN PER ORDER.
[2020-09-23] MEDS: ACETAMINOPHEN 325 MG TABLET PO PRN ×3 (00:54→23:16)
--- NOTE | 2020-09-23 00:55 | NUR ---
NOTED WITH 100.1 TEMP, TYLENOL PRN ADMINISTERED. COOLING MEASURES PROVIDED. WILL CONTINUE TO MONITOR.
[2020-09-23] MEDS: IPRATROPIUM NEB FS 0.5 MG/2.5 ML AMPUL.NEB NEB SCH ×4 (01:59→18:56)
[2020-09-23 04:00] VITALS: BP 122/67
--- NOTE | 2020-09-23 05:22 | NUR ---
BLOOD SUGAR 105, NO INSULIN COVERAGE GIVEN PER ORDER.
[2020-09-23] MEDS: JEVITY 1.2 CAL 1,000 ML BOTTLE GT SCH ×2 (06:32→22:57)
[2020-09-23 06:37] LABS: BASOPHILS % (AUTO) 0.2 % (0.0-2.0); EOSINOPHILS % (AUTO) 1.2 % (0.0-6.0); HEMATOCRIT 25 % (39-51); HEMOGLOBIN 8.1 g/dL (13.5-17.5); LYMPHOCYTES # (AUTO) 2.5 /CMM (0.8-4.8); LYMPHOCYTES % (AUTO) 14.1 % (20.0-44.0); MEAN CORPUSCULAR HGB CONC 33 g/dl (31.0-36.0); MEAN CORPUSCULAR VOLUME 86 fL (80-96); MONOCYTES # (AUTO) 1.8 /CMM (0.1-1.30); MONOCYTES % (AUTO) 10.1 % (2.0-12.0); NEUTROPHILS % (AUTO) 74.4 % (43.0-81.0); PLATELET COUNT (AUTO) 138 /CMM (150-450); RED BLOOD CELL COUNT(AUTO) 2.91 MIL/uL (4.5-6.0); WHITE BLOOD COUNT (AUTO) 17.5 K/uL (4.3-11.0)
[2020-09-23 06:46] LABS: CALCIUM, SERUM 8.4 mg/dL (8.5-10.1); MAGNESIUM 1.6 mg/dL (1.8-2.4); POTASSIUM 4.3 mmol/L (3.5-5.1)
--- NOTE | 2020-09-23 07:32 | NUR ---
RN NOTE PATIENT IN BED OBTUNDED. ON TRACH/MECH VENT, TOLERATING VENT SETTINGS WELL. O2 SAT WNL. NO SOB NOTED. WITH JACOBSON CATH DRAINING URINE TO GRAVITY OUTPUT 1800. HEAD OF BED ELEVATED, JEVITY 1.2 @ 75ML/HR, GT PATENT AND INTACT WITH POSITIVE PLACEMENT. EYAL MIDLINE PATENT AND INTACT, FLUSHED WITH NS. TURNED AND REPOSITIONED. KEPT CLEAN AND DRY. SAFETY MEASURES IN PLACE. CALL LIGHT WITHIN REACH. BED LOCKED AND AT LOWEST POSITION WITH SIDE RAILS UP X2. ENDORSED TO AM SHIFT.
--- NOTE | 2020-09-23 07:55 | NUR ---
RN OPENING NOTE PATIENT IS CURRENTLY IN BED WITH HOB AT SEMI FOWLERS POSITION. PATIENT IS OBTUNDED. PATIENT IS CURRENTLY ON TRACH/VENT WITH NO SIGNS OF LABORED BREATHING. JACOBSON CATHETER IS IN PLACE. SACRAL WOUND NOTED. NG TUBE IS IN PLACE WITH APPROPRIATE FEEDING RUNNING. EYAL MIDLINE IS PATENT, INTACT, AND HAS NO SIGNS OF INFILTRATION. BED IS LOCKED IN THE LOWEST POSITION, 3 GUARD RAILS RAISED, AND ALL HOSPITAL SAFETY PRECAUTIONS ARE BEING FOLLOWED. WILL CONTINUE TO MONITOR THROUGHOUT SHIFT.
[2020-09-23 08:00] VITALS: BP 107/62
[2020-09-23] MEDS: MULTIVIT W/MINERALS 1 TAB TABLET GT SCH (08:59)
[2020-09-23] MEDS: ASCORBIC ACID 500 MG TABLET GT SCH (09:00)
[2020-09-23] MEDS: LEVETIRACETAM SOL (5 ML) 100 MG/ML UDC GT SCH ×2 (09:00→20:03)
[2020-09-23] MEDS: BACLOFEN (10 MG) 10 MG TABLET GT SCH ×3 (09:00→17:22)
[2020-09-23] MEDS: FERROUS SULFATE (325 MG) 325 MG/TAB TABLET GT SCH ×2 (09:00→17:22)
[2020-09-23] MEDS: METOPROLOL TARTRATE 25 MG TABLET GT SCH ×2 (09:00→17:22)
[2020-09-23] MEDS: AMLODIPINE BESYLATE 5 MG TABLET GT SCH (09:00)
[2020-09-23] MEDS: FIXODENT DENTURE ADHESIVE TUBE MM SCH ×2 (09:01→20:19)
[2020-09-23] MEDS: PROSOURCE / PROSTAT (PYXIS) 30 ML UDC GT SCH (09:08)
[2020-09-23] MEDS: DOCUSATE SODIUM LIQ 100 MG/10 ML UDC GT SCH (09:25)
[2020-09-23] MEDS: DAKINS QUARTER STRENGTH (0.125%) 480 ML BOTTLE TOP SCH (09:26)
[2020-09-23 09:58] LABS: LYMPHOCYTES % (MANUAL) 13 % (16-48); MONOCYTES % (MANUAL) 6 % (0-11.0); NEUTROPHILS % (MANUAL) 81 (42-76)
[2020-09-23] MEDS ORDERED: Magnesium 1GM/D5W 100ML PREMIX 100 ML IV SCH (10:30)
[2020-09-23] MEDS: IV D5W 1,000 ML IV PRN (11:39)
[2020-09-23 12:00] VITALS: BP 96/66
--- NOTE | 2020-09-23 12:30 | NUR ---
RN NOTE SPOKE WITH JEREMY Ruth ABOUT PATIENT'S BP OF 107/62 AND HOLDING AMLODIPINE IN AM. RECHECKED BP AND RESULTED IN 96/66. Flory LUNA OKAY WITH CONTINUING TO HOLD AMLODIPINE.
--- NOTE | 2020-09-23 12:34 | NUR ---
RN NOTE PATIENT HAS FEVER OF 101. TYLENOL ADMINISTERED. WILL CONTINUE TO MONITOR.
[2020-09-23 16:00] VITALS: BP 123/69
--- NOTE | 2020-09-23 18:43 | NUR ---
RN CLOSING NOTE PATIENT IS CURRENTLY IN BED WITH HOB AT SEMI FOWLERS POSITION. PATIENT IS OBTUNDED. TRACH/VENT ARE IN PLACE WITH APPROPRIATE SETTINGS. SACRAL STAGE 4 AND BILATERAL FEET WOUNDS HAD NEW APPROPRIATE DRESSINGS APPLIED DURING SHIFT. GTUBE IS IN PLACE WITH APPROPRIATE FEEDING RUNNING. EYAL MIDLINE IS PATENT AND INTACT. BED IS LOCKED IN THE LOWEST POSITION, 3 GUARD RAILS RAISED, AND ALL HOSPITAL SAFETY PRECAUTIONS ARE BEING FOLLOWED. PATIENT REMAINED STABLE FOR ENTIRETY OF SHIFT AND ALL DUE MEDS WERE GIVEN. WILL ENDORSE TO POSTAL MAIL CARRIER RN.
[2020-09-23 20:00] VITALS: BP 107/70
--- NOTE | 2020-09-23 20:00 | NUR ---
RN NOTE PATIENT IN BED OBTUNDED. ON TRACH/MECH VENT, TOLERATING VENT SETTINGS WELL. O2 SAT 100% NO SOB NO DISTRESS NOTED. BREATHING EVEN AND UNLABORED SUCTIONED SECRETION Q 2HRS AND PRN, TURN AND REPOSITION Q 2 HRS DUE MEDS GIVEN ORDERED. WITH JACOBSON CATH DRAINING URINE TO GRAVITY. HEAD OF BED ELEVATED, JEVITY 1.2 @ 75ML/HR, GT PATENT AND INTACT WITH POSITIVE PLACEMENT. NO RESIDUAL NOTED ,EYAL MIDLINE PATENT AND INTACT, SAFETY MEASURES IN PLACE. CALL LIGHT WITHIN REACH. BED LOCKED AND AT LOWEST POSITION WITH SIDE RAILS UP X2. PTS NOTED WITH TEMP OF 100 COOLING MEASURES APPLIED WILL CONTINUE TO MONITOR.
[2020-09-23] MEDS: MEROPENEM 1 G in IV NS 0.9% 100 ML IV SCH (20:03)
[2020-09-23 21:30] LABS: D-DIMER 3.66 mg/L(FEU (0.17-0.50)
[2020-09-23] MEDS: FAMOTIDINE (20 MG) 20 MG TABLET GT SCH (22:54)
[2020-09-24] VITALS: BP 113/66
--- NOTE | 2020-09-24 | NUR ---
[employer] OPERATOR NOTES BLOOD SUGAR AT 12MN IS 115 NI INSULIN COVERAGE GIVEN PER SLIDING SCALE WILL CHECK BS AGAIN IN AM.
[2020-09-24] MEDS: IPRATROPIUM NEB FS 0.5 MG/2.5 ML AMPUL.NEB NEB SCH ×4 (01:48→19:26)
[2020-09-24] MEDS: IV D5W 1,000 ML IV PRN (02:54)
[2020-09-24 04:00] VITALS: BP 123/67
--- NOTE | 2020-09-24 05:28 | NUR ---
PATIENT RECEIVED ON TRACH TO VENT WITH SETTINGS OF AC 12, 400 Vt, 40%, +5. SUCTIONED FOR MODERATE, THICK, WHITE SECRETIONS. GIVEN IN-LINE TREATMENTS WITH NO ADVERSE REACTIONS. AMBU BAG AT BEDSIDE. VENT AND PULSE OXIMETER ALARMS AUDIBLE AND VISIBLE. Addendum: 09/24/20 at 0530 by AYDEE SANCHEZ RT Amended: Links added.
[2020-09-24] MEDS: INSULIN REGULAR, HUMAN 100 UNIT/ML 3 ML VIAL SQ PRN (06:20)
[2020-09-24] MEDS: BLOOD SUGAR DIAGNOSTIC 1 EACH STRIP IN SCH ×3 (06:21→18:32)
--- NOTE | 2020-09-24 06:54 | NUR ---
RN CLOSING NOTE: PATIENT REMAINS IN ROOM IN NO SIGNS OF RESPIRATORY DISTRESS; STILL ON VENT SETTING PER ORDERED. SAFETY MEASURES IMPLEMENTED, BED IN LOWEST POSITION, LOCKED, SIDE RAILS UP, CALL LIGHT WITHIN REACH. ALL NEEDS AND ORDERS ADDRESSED DURING THE SHIFT. IV ACCESS MAINTAINED INTACT, SECURED AND FLUSHING WELL. ALL DUE MEDS GIVEN ORDERED & SCHEDULED ; PATIENT TOLERATED WELL. PATIENT KEPT CLEAN AND COMFORTABLE WITHIN THE SHIFT. PATIENT ENDORSED TO INCOMING SHIFT RN WITH STABLE VITAL SIGN AND FOR CONTINUITY OF CARE.
[2020-09-24 07:23] LABS: CREATININE 1.7 mg/dL (0.6-1.3); MAGNESIUM 1.6 mg/dL (1.8-2.4); POTASSIUM 4.1 mmol/L (3.5-5.1)
--- NOTE | 2020-09-24 07:50 | NUR ---
RN OPENING NOTE PATIENT IS CURRENTLY IN BED WITH HOB AT SEMI FOWLERS POSITION. PATIENT IS OBTUNDED. TRACH/VENT ARE IN PLACE WITH APPROPRIATE SETTINGS. SACRAL STAGE 4 AND BILATERAL FEET WOUNDS ARE NOTED. GTUBE IS IN PLACE WITH APPROPRIATE FEEDING RUNNING. EYAL MIDLINE IS PATENT AND INTACT. BED IS LOCKED IN THE LOWEST POSITION, 3 GUARD RAILS RAISED, AND ALL HOSPITAL SAFETY PRECAUTIONS ARE BEING FOLLOWED. WILL CONTINUE TO MONITOR THROUGHOUT SHIFT.
[2020-09-24 07:53] LABS: BASOPHILS % (AUTO) 0.2 % (0.0-2.0); EOSINOPHILS % (AUTO) 0.7 % (0.0-6.0); HEMATOCRIT 24 % (39-51); HEMOGLOBIN 7.7 g/dL (13.5-17.5); LYMPHOCYTES # (AUTO) 1.7 /CMM (0.8-4.8); LYMPHOCYTES % (AUTO) 9.4 % (20.0-44.0); MEAN CORPUSCULAR HGB CONC 33 g/dl (31.0-36.0); MEAN CORPUSCULAR VOLUME 86 fL (80-96); MONOCYTES # (AUTO) 1.1 /CMM (0.1-1.30); NEUTROPHILS # (AUTO) 15.6 /CMM (1.8-8.9); NEUTROPHILS % (AUTO) 83.7 % (43.0-81.0); PLATELET COUNT (AUTO) 202 /CMM (150-450); RED BLOOD CELL COUNT(AUTO) 2.76 MIL/uL (4.5-6.0); WHITE BLOOD COUNT (AUTO) 18.6 K/uL (4.3-11.0)
[2020-09-24 08:00] VITALS: BP 112/64
[2020-09-24] MEDS: AMLODIPINE BESYLATE 5 MG TABLET GT SCH (09:00)
[2020-09-24] MEDS: LEVETIRACETAM SOL (5 ML) 100 MG/ML UDC GT SCH ×2 (09:00→21:48)
[2020-09-24] MEDS: FERROUS SULFATE (325 MG) 325 MG/TAB TABLET GT SCH ×2 (09:00→16:03)
[2020-09-24] MEDS: METOPROLOL TARTRATE 25 MG TABLET GT SCH ×2 (09:00→16:03)
[2020-09-24] MEDS: FIXODENT DENTURE ADHESIVE TUBE MM SCH ×2 (09:00→21:00)
[2020-09-24] MEDS: MULTIVIT W/MINERALS 1 TAB TABLET GT SCH (09:01)
[2020-09-24] MEDS: BACLOFEN (10 MG) 10 MG TABLET GT SCH ×3 (09:01→16:03)
[2020-09-24] MEDS: MUPIROCIN OINT 2% 22 GM TUBE NS SCH ×2 (09:01→21:49)
[2020-09-24] MEDS: DOCUSATE SODIUM LIQ 100 MG/10 ML UDC GT SCH (09:01)
[2020-09-24] MEDS: ASCORBIC ACID 500 MG TABLET GT SCH (09:01)
[2020-09-24] MEDS: DAKINS QUARTER STRENGTH (0.125%) 480 ML BOTTLE TOP SCH (09:03)
[2020-09-24] MEDS: PROSOURCE / PROSTAT (PYXIS) 30 ML UDC GT SCH (09:03)
[2020-09-24] MEDS ORDERED: Magnesium 1GM/D5W 100ML PREMIX 100 ML IV SCH (10:30)
[2020-09-24 12:00] VITALS: BP 106/64
[2020-09-24] MEDS: DAPTOMYCIN IV SCH (13:48)
[2020-09-24] MEDS: NS 0.9% IV SCH (13:48)
[2020-09-24 16:00] VITALS: BP 117/62
--- NOTE | 2020-09-24 16:00 | NUR ---
RN NOTE PATIENT'S TEMP OF 101. WILL ADMINISTER TYLENOL AND CONTINUE TO MONITOR.
--- NOTE | 2020-09-24 16:20 | NUR ---
RN NOTE UA COLLECTED. AWAITING LAB PICKUP
--- NOTE | 2020-09-24 19:00 | NUR ---
RN NOTE PATIENT IN BED OBTUNDED. ON TRACH/MECH VENT, TOLERATING VENT SETTINGS WELL. O2 SAT 100% NO SOB NO DISTRESS NOTED. BREATHING EVEN AND UNLABORED. IV LINE AT R IJ, AND EYAL MIDLINE PATENT AND FLUSHING WELL, SALINE LOCKED. JACOBSON CATHETER CONNECTED TO URINE BAG IN PLACE, DRAINING TO A CLEAR, YELLOW URINE. HEAD OF BED ELEVATED, JEVITY 1.2 @ 75ML/HR, GT PATENT AND INTACT WITH POSITIVE PLACEMENT. NO RESIDUAL NOTED ,EYAL MIDLINE PATENT AND INTACT, SAFETY MEASURES IN PLACE. CALL LIGHT WITHIN REACH. BED LOCKED AND AT LOWEST POSITION WITH SIDE RAILS UP X2. PT NOTED WITH TEMP OF 100.7 COOLING MEASURES PROVIDED. WILL CONTINUE TO MONITOR AND REASSESS FOR CHANGES.
[2020-09-24] MEDS: ACETAMINOPHEN 325 MG TABLET PO PRN (19:09)
--- NOTE | 2020-09-24 19:29 | NUR ---
RN CLOSING NOTE PATIENT IS CURRENTLY IN BED WITH HOB AT SEMI FOWLERS POSITION. PATIENT IS OBTUNDED. TRACH/VENT ARE IN PLACE WITH APPROPRIATE SETTINGS. SACRAL STAGE 4 AND BILATERAL FEET WOUNDS HAVE HAD APPROPRIATE DRESSINGS APPLIED. GTUBE IS IN PLACE WITH APPROPRIATE FEEDING RUNNING. EYAL MIDLINE IS PATENT AND INTACT. BED IS LOCKED IN THE LOWEST POSITION, 3 GUARD RAILS RAISED, AND ALL HOSPITAL SAFETY PRECAUTIONS ARE BEING FOLLOWED. ALL MEDS GIVEN AND AND PATIENT REMAINED STABLE THROUGHOUT SHIFT. ENDORSED TO NEW BUSINESS CLERK RN.
[2020-09-24 20:00] VITALS: BP 117/71
[2020-09-24] MEDS: MEROPENEM 1 G in IV NS 0.9% 100 ML IV SCH (20:55)
[2020-09-24] MEDS: FAMOTIDINE (20 MG) 20 MG TABLET GT SCH (21:48)
[2020-09-25] VITALS: BP 115/62
[2020-09-25] MEDS: BLOOD SUGAR DIAGNOSTIC 1 EACH STRIP IN SCH ×4 (00:03→18:48)
[2020-09-25] MEDS: IPRATROPIUM NEB FS 0.5 MG/2.5 ML AMPUL.NEB NEB SCH ×4 (01:26→20:30)
[2020-09-25 04:00] VITALS: BP 108/62
--- NOTE | 2020-09-25 05:00 | NUR ---
RN NOTE NOTED BLISTERS UNDER PAPER TAPE FROM GTUBE SITE DRESSING. PHOTOS TAKEN AND PLACED IN CHART. KEPT CLEAN AND DRY. LEFT OPEN TO AIR. WOUND CARE CONSULT REFERRAL SENT. SCHOOL OPERATIONS MANAGER AWARE.
[2020-09-25 06:36] LABS: BASOPHILS % (AUTO) 0.2 % (0.0-2.0); EOSINOPHILS % (AUTO) 0.6 % (0.0-6.0); HEMATOCRIT 26 % (39-51); HEMOGLOBIN 8.3 g/dL (13.5-17.5); LYMPHOCYTES # (AUTO) 1.9 /CMM (0.8-4.8); LYMPHOCYTES % (AUTO) 10.3 % (20.0-44.0); MEAN CORPUSCULAR HGB CONC 32 g/dl (31.0-36.0); MEAN CORPUSCULAR VOLUME 87 fL (80-96); MONOCYTES # (AUTO) 1.1 /CMM (0.1-1.30); MONOCYTES % (AUTO) 6.2 % (2.0-12.0); NEUTROPHILS # (AUTO) 15.1 /CMM (1.8-8.9); NEUTROPHILS % (AUTO) 82.7 % (43.0-81.0); PLATELET COUNT (AUTO) 303 /CMM (150-450); RED BLOOD CELL COUNT(AUTO) 2.99 MIL/uL (4.5-6.0); WHITE BLOOD COUNT (AUTO) 18.2 K/uL (4.3-11.0)
[2020-09-25 06:56] LABS: CALCIUM, SERUM 9.2 mg/dL (8.5-10.1); CREATININE 1.7 mg/dL (0.6-1.3); MAGNESIUM 2.1 mg/dL (1.8-2.4); POTASSIUM 4.6 mmol/L (3.5-5.1)
--- NOTE | 2020-09-25 07:02 | NUR ---
RN NOTE PATIENT REMAINS IN ROOM IN NO SIGNS OF RESPIRATORY DISTRESS, ON TRACHE TO MECHANICAL VENT WITH PRESCRIBED SETTINGS. NOTED T 100.0 AT 0000, 99.7 AT 0400. LATEST TEMP 99.3. SAFETY MEASURES IMPLEMENTED, BED IN LOWEST POSITION, LOCKED, SIDE RAILS UP, CALL LIGHT WITHIN REACH. ALL NEEDS AND ORDERS ADDRESSED DURING THE SHIFT. WILL ENDORSE TO WILBER BEJARANO FOR CONTINUATION OF CARE
--- NOTE | 2020-09-25 07:25 | NUR ---
RN OPENING NOTE PATIENT RECEIVED IN BED RESTING IN RIGHT LATERAL POSITION. PATIENT IS OBTUNDED. TRACH/VENT ARE IN PLACE WITH APPROPRIATE SETTINGS. G-TUBE IS IN PLACE WITH APPROPRIATE FEEDING RUNNING. EYAL MIDLINE IS PATENT AND INTACT. SAFETY PRECAUTIONS IMPLEMENTED, BED IS LOCKED IN THE LOWEST POSITION, SIDE RAILS UP X2, CALL LIGHT WITHIN REACH. WILL CONTINUE TO MONITOR AND PROVIDE CARE THROUGHOUT SHIFT.
[2020-09-25 07:31] LABS: BILIRUBIN,URINE NEGATIVE (NEGATIVE); COLOR,URINE YELLOW (YELLOW); LEUKOCYTE ESTERASE ,URINE NEGATIVE (NEGATIVE); NITRITE, URINE NEGATIVE (NEGATIVE); PH,URINE 7.5 (5.0-8.0); PROTEIN,URINE NEGATIVE (NEGATIVE); UGLUCOSE NEGATIVE (NEGATIVE)
[2020-09-25 08:00] VITALS: BP 113/60
[2020-09-25 08:40] LABS: BACTERIA,URINE Rare /HPF (None Seen); SQUAMOUS EPITHELIAL CELL,UR Rare /HPF (None Seen)
[2020-09-25] MEDS: AMLODIPINE BESYLATE 5 MG TABLET GT SCH (09:00)
[2020-09-25] MEDS: ACETAMINOPHEN 325 MG TABLET PO PRN (09:40)
[2020-09-25] MEDS: ASCORBIC ACID 500 MG TABLET GT SCH (09:41)
[2020-09-25] MEDS: MULTIVIT W/MINERALS 1 TAB TABLET GT SCH (09:41)
[2020-09-25] MEDS: BACLOFEN (10 MG) 10 MG TABLET GT SCH ×3 (09:41→18:23)
[2020-09-25] MEDS: FERROUS SULFATE (325 MG) 325 MG/TAB TABLET GT SCH ×2 (09:41→18:23)
[2020-09-25] MEDS: DOCUSATE SODIUM LIQ 100 MG/10 ML UDC GT SCH (09:42)
[2020-09-25] MEDS: LEVETIRACETAM SOL (5 ML) 100 MG/ML UDC GT SCH ×2 (09:42→20:44)
[2020-09-25] MEDS: DAKINS QUARTER STRENGTH (0.125%) 480 ML BOTTLE TOP SCH (09:44)
[2020-09-25] MEDS: METOPROLOL TARTRATE 25 MG TABLET GT SCH ×2 (09:44→17:00)
[2020-09-25] MEDS: MUPIROCIN OINT 2% 22 GM TUBE NS SCH ×2 (09:45→20:49)
[2020-09-25] MEDS: FIXODENT DENTURE ADHESIVE TUBE MM SCH ×2 (09:45→21:00)
[2020-09-25] MEDS: PROSOURCE / PROSTAT (PYXIS) 30 ML UDC GT SCH (09:49)
[2020-09-25 12:00] VITALS: BP 105/55
[2020-09-25 16:00] VITALS: BP 106/59
--- NOTE | 2020-09-25 16:30 | NUR ---
PT. RECEIVES OBTUNDED AND ON LEFT LATERAL POSITION. PT. VENT SETTING WAS ON AC 12, 450, 40%, +5. PT. RECEIVES BREATHING TX. TOLERATED WELL, NO ADVERSE REACTION NOTED. SX 2X + PRN, MODERATE YELLOW THICK SECRETIONS. BREATH SOUNDS DIMINISH RHONCHI BILATERAL THROUGHOUT. SPARE TRACH AND AMBUBAG IS ON THE BEDSIDE. TRACH CARE DONE, SPO2 WAS ON 97% THE LAST TIME WAS CHECK. WILL KEEP MONITOR THE PT.
[2020-09-25] MEDS: JEVITY 1.2 CAL 1,000 ML BOTTLE GT SCH (18:31)
--- NOTE | 2020-09-25 19:40 | NUR ---
RN NOTE RECEIVED PATIENT IN BED ON TRACH/MECH VENT, O2 SAT 100% NO SOB NO DISTRESS NOTED. SINUS RHYTHM ON TELE MONITOR. ON GT FEEDING OF JEVITY 1.2 @ 75ML/HR, GT PATENT AND INTACT WITH POSITIVE PLACEMENT. <5CC RESIDUAL NOTED, KEPT HOB ELEVATED ,EYAL MIDLINE PATENT AND INTACT. WITH JACOBSON CATH DRAINING URINE TO GRAVITY. SAFETY MEASURES IN PLACE. CALL LIGHT WITHIN REACH. BED LOCKED AND AT LOWEST POSITION WITH SIDE RAILS UP X2.
[2020-09-25 20:00] VITALS: BP 107/65
--- NOTE | 2020-09-25 20:06 | NUR ---
RN CLOSING NOTE PATIENT IN BED RESTING IN RIGHT LATERAL POSITION. PATIENT IS OBTUNDED. TRACH/VENT ARE IN PLACE WITH APPROPRIATE SETTINGS. G-TUBE IS IN PLACE WITH APPROPRIATE FEEDING RUNNING. EYAL MIDLINE IS PATENT AND INTACT. SAFETY PRECAUTIONS IMPLEMENTED, BED IS LOCKED IN THE LOWEST POSITION, SIDE RAILS UP X2, CALL LIGHT WITHIN REACH. PRN TYLENOL GIVEN FOR ELEVATED TEMP. WILL ENDORSE CARE TO UPCOMING SHIFT.
[2020-09-25] MEDS: MEROPENEM 1 G in IV NS 0.9% 100 ML IV SCH (20:44)
[2020-09-25] MEDS: FAMOTIDINE (20 MG) 20 MG TABLET GT SCH (21:12)
--- NOTE | 2020-09-25 21:14 | NUR ---
RN NOTE FIXODENT NOT GIVEN PT W/ NO DENTURES ON.
--- NOTE | 2020-09-25 21:52 | NUR ---
RN NOTES, INFORMED MD TOMMY SHOE HANDLER THAT PATIENT IS NOTED WITH CHANGES IN STRETCHER OPERATOR, MD REPLIED WITH ORDERS FOR EKG, NOTED AND CARRIED OUT.
--- NOTE | 2020-09-25 22:12 | NUR ---
RN NOTE, RELAYED EKG RESULTS TO DR SANDERS AND H REPLIED WITH ORDERS FOR TROPONIN AND BNP STAT, NOTED AND CARRIED OUT.
[2020-09-25 23:11] LABS: B-TYPE NATRIURETIC PEPTIDE 297 PG/ML (0-125)
[2020-09-26] VITALS: BP 101/46
[2020-09-26] MEDS: BLOOD SUGAR DIAGNOSTIC 1 EACH STRIP IN SCH ×4 (00:06→17:03)
[2020-09-26] MEDS: INSULIN REGULAR, HUMAN 100 UNIT/ML 3 ML VIAL SQ PRN ×2 (00:07→06:39)
--- NOTE | 2020-09-26 00:43 | NUR ---
RN NOTES BNP AND TROPONIN RESULTS RELAYED TO DULCE TURNER MADE.
[2020-09-26] MEDS: IPRATROPIUM NEB FS 0.5 MG/2.5 ML AMPUL.NEB NEB SCH ×4 (01:33→19:48)
[2020-09-26 04:00] VITALS: BP 136/69
[2020-09-26] MEDS: ACETAMINOPHEN 325 MG TABLET PO PRN ×2 (05:31→15:28)
[2020-09-26 06:30] LABS: BASOPHILS # (AUTO) 0.1 /CMM (0.0-0.2); BASOPHILS % (AUTO) 0.3 % (0.0-2.0); EOSINOPHILS % (AUTO) 0.2 % (0.0-6.0); HEMATOCRIT 25 % (39-51); LYMPHOCYTES # (AUTO) 1.6 /CMM (0.8-4.8); LYMPHOCYTES % (AUTO) 7.3 % (20.0-44.0); MEAN CORPUSCULAR HGB CONC 32 g/dl (31.0-36.0); MEAN CORPUSCULAR VOLUME 86 fL (80-96); MONOCYTES # (AUTO) 0.8 /CMM (0.1-1.30); MONOCYTES % (AUTO) 3.6 % (2.0-12.0); NEUTROPHILS # (AUTO) 19.4 /CMM (1.8-8.9); NEUTROPHILS % (AUTO) 88.6 % (43.0-81.0); PLATELET COUNT (AUTO) 370 /CMM (150-450); RED BLOOD CELL COUNT(AUTO) 2.94 MIL/uL (4.5-6.0); WHITE BLOOD COUNT (AUTO) 21.8 K/uL (4.3-11.0)
[2020-09-26 06:35] LABS: CALCIUM, SERUM 9.1 mg/dL (8.5-10.1); CREATININE 1.7 mg/dL (0.6-1.3); MAGNESIUM 1.9 mg/dL (1.8-2.4); POTASSIUM 4.8 mmol/L (3.5-5.1)
--- NOTE | 2020-09-26 07:00 | NUR ---
RN NOTES PT REMAINS IN BED, TOLERATING VENT SETTINGS, SUCTIONED NEEDED. CONTINUE ON GT FEEDING, TOLERATED WELL. NO RESIDUALS NOTED.KEPT HOB ELEVATED. FSBS AT 116. NO INSULIN COVERAGE GIVEN. WOUND TX DONE ORDERED. REPOSITIONED Q2H. ALL SAFETY MEASURES MAINTAINED.
--- NOTE | 2020-09-26 07:30 | NUR ---
BROADCAST SYSTEMS ENGINEER AM NOTES: RECEIVED PT OBTUNDED, IN BED, WITH PORTEX 7 TO MECHANICAL VENT, SETTING ORDERED, WELL TOLERATED O2 SAT AT 100%. BREATHING EVEN AND UNLABORED. NO SOB NOTED. AMBU BAG AT BED SIDE ALARMS SET PER PROTOCOL AND AUDIBLE. VENT PLUGGED IN TO RED OUTLET. SINUS RHYTHM ON MONITOR HR 90, NO SIGNS OF PAIN OR ANY DISCOMFORT. EYAL MIDLINE, RT FOOT G24, RT JUGULAR H18, ALL FLUSHES WELL, ALL SITES CLEAR. GT CHECKED FOR PLACEMENT, 0 RESIDUAL, FLUSHED THEN CONNECTED TO TUBE FEEDING OF JEVITY 1.2 @75ML/HR; ON AT 0600 OFF AT 0200. PT TOLERATES WELL. JACOBSON CATH IN PLACE WITH. HEEL PROTECTOR IN PLACE. ON LALM. SEE NURSING ASSESSMENT FOR SKIN ISSUES. SAFETY MEASURES IN PLACE. HEAD OF BED ELEVATED. BED IS LOCKED, IN LOWEST POSITION AND SIDE RAILS UP. CALL LIGHT WITHIN REACH OF THE PATIENT. WILL TURN AND REPOSITION Q 2 HOURS. WILL DO PRESCRIBED WOUND TREATMENT IN A WHILE. APPLICABLE ISOLATION PRECAUTIONS IN PLACE. WILL CONTINUE TO MONITOR AND REASSESS FOR ANY CHANGES AND WILL CARRY OUT ANY ONGOING AND ACTIVE MD ORDER.
[2020-09-26 08:00] VITALS: BP 99/55
[2020-09-26] MEDS: AMLODIPINE BESYLATE 5 MG TABLET GT SCH (09:00)
[2020-09-26] MEDS: METOPROLOL TARTRATE 25 MG TABLET GT SCH ×2 (09:00→17:00)
--- NOTE | 2020-09-26 09:30 | NUR ---
RN NOTES DUE MEDS GIVEN
[2020-09-26] MEDS: DOCUSATE SODIUM LIQ 100 MG/10 ML UDC GT SCH (09:33)
[2020-09-26] MEDS: BACLOFEN (10 MG) 10 MG TABLET GT SCH ×3 (09:33→17:23)
[2020-09-26] MEDS: MULTIVIT W/MINERALS 1 TAB TABLET GT SCH (09:33)
[2020-09-26] MEDS: ASCORBIC ACID 500 MG TABLET GT SCH (09:33)
[2020-09-26] MEDS: LEVETIRACETAM SOL (5 ML) 100 MG/ML UDC GT SCH ×2 (09:33→20:53)
[2020-09-26] MEDS: FERROUS SULFATE (325 MG) 325 MG/TAB TABLET GT SCH ×2 (09:33→17:22)
[2020-09-26] MEDS: DAKINS QUARTER STRENGTH (0.125%) 480 ML BOTTLE TOP SCH (09:36)
[2020-09-26] MEDS: FIXODENT DENTURE ADHESIVE TUBE MM SCH (09:36)
[2020-09-26] MEDS: MUPIROCIN OINT 2% 22 GM TUBE NS SCH ×2 (09:36→20:54)
[2020-09-26] MEDS: PROSOURCE / PROSTAT (PYXIS) 30 ML UDC GT SCH (09:37)
--- NOTE | 2020-09-26 10:41 | NUR ---
WOUND CARE CONSULT: PT SEEN FOR RAISED INTACT BLISTERS TO RT ABDOMEN, UNKNOWN ETIOLOGY. MSG LEFT FOR DR DARBY MCKENNA (SURGEON CURRENTLY ON CASE). DISCUSSED SKIN PROTECTION WITH NURSING STAFF.
[2020-09-26] MEDS: ENOXAPARIN SODIUM 30 MG/0.3 ML DISP.SYRIN SQ SCH (11:47)
[2020-09-26 12:00] VITALS: BP 105/66
[2020-09-26] MEDS: NS 0.9% IV SCH (14:25)
[2020-09-26] MEDS: DAPTOMYCIN IV SCH (14:25)
[2020-09-26] MEDS: JEVITY 1.2 CAL 1,000 ML BOTTLE GT SCH (15:29)
[2020-09-26 16:00] VITALS: BP 101/59
--- NOTE | 2020-09-26 19:30 | NUR ---
CABLE WEAVER CLOSING NOTES: PT OBTUNDED, IN BED, RESTING,COMFORTABLE, WITH PORTEX 7 TO MECHANICAL VENT, SETTING ORDERED, WELL TOLERATED O2 SAT AT 100%. BREATHING EVEN AND UNLABORED. NO SOB NOTED. AMBU BAG AT BED SIDE ALARMS SET PER PROTOCOL AND AUDIBLE. VENT PLUGGED IN TO RED OUTLET. SINUS RHYTHM ON MONITOR HR 89, NO SIGNS OF PAIN OR ANY DISCOMFORT. EYAL MIDLINE, RT FOOT G24, RT JUGULAR H18, ALL FLUSHES WELL, ALL SITES CLEAR. GT CHECKED FOR PLACEMENT, 0 RESIDUAL, FLUSHED THEN CONNECTED TO TUBE FEEDING OF JEVITY 1.2 @75ML/HR; ON AT 0600 OFF AT 0200. PT TOLERATES WELL. JACOBSON CATH IN PLACE WITH 1100 OUTPUT. HEEL PROTECTOR IN PLACE. ON LALM. SAFETY MEASURES IN PLACE. HEAD OF BED ELEVATED. BED IS LOCKED, IN LOWEST POSITION AND SIDE RAILS UP. CALL LIGHT WITHIN REACH OF THE PATIENT. TURNED AND REPOSITIONED Q 2 HOURS. PM CARE AND PRESCRIBED WOUND TREATMENT DONE. APPLICABLE ISOLATION PRECAUTIONS IN PLACE. ALL NEEDS MET, NO OTHER SIGNIFICANT CHANGE IN CONDITION. WILL ENDORSE TO CODIFIER FOR JENNY.
--- NOTE | 2020-09-26 19:31 | NUR ---
RN NOTE RECEIVED PATIENT IN BED ON TRACH/MECH VENT, O2 SAT 100% NO SOB , NO DISTRESS NOTED. SINUS RHYTHM ON TELE MONITOR WITH HR OF 83. ON GT FEEDING OF JEVITY 1.2 @ 75ML/HR, GT PATENT AND INTACT WITH POSITIVE PLACEMENT WITH 70 CC RESIDUAL NOTED, KEPT HOB ELEVATED. PT WITH EYAL MIDLINE, REJ 18G AND R.FOOT 24G, ALL PATENT AND INTACT, NO SIGNS OF INFECTION NOTED. WITH BLISTERS ON ABDOMEN. BILATERAL FOOT WOUND DRESSINGS CLEAN DRY AND INTACT, HEEL PROTECTORS IN PLACE. JACOBSON CATH DRAINING CLEAR YELLOW URINE TO GRAVITY. SAFETY MEASURES IN PLACE. CALL LIGHT WITHIN REACH. BED LOCKED AND AT LOWEST POSITION WITH SIDE RAILS UP X2. WILL CONTINUE TO MONITOR.
[2020-09-26 20:00] VITALS: BP 116/63
[2020-09-26] MEDS: CHLORHEXIDINE GLUCONATE 15 ML UDC MM SCH (20:53)
[2020-09-26] MEDS: MEROPENEM 1 G in IV NS 0.9% 100 ML IV SCH (20:53)
[2020-09-26] MEDS ORDERED: MUPIROCIN OINT 2% 22 GM TUBE NS SCH (21:00)
[2020-09-26] MEDS: FAMOTIDINE (20 MG) 20 MG TABLET GT SCH (21:11)
[2020-09-27] VITALS: BP 117/59
[2020-09-27] MEDS: BLOOD SUGAR DIAGNOSTIC 1 EACH STRIP IN SCH ×4 (00:37→17:16)
[2020-09-27] MEDS: INSULIN REGULAR, HUMAN 100 UNIT/ML 3 ML VIAL SQ PRN (00:38)
[2020-09-27] MEDS: IPRATROPIUM NEB FS 0.5 MG/2.5 ML AMPUL.NEB NEB SCH ×4 (00:54→20:29)
[2020-09-27] MEDS: ACETAMINOPHEN 325 MG TABLET PO PRN ×3 (01:39→21:07)
[2020-09-27 04:00] VITALS: BP 128/71
[2020-09-27 06:26] LABS: BASOPHILS # (AUTO) 0.1 /CMM (0.0-0.2); BASOPHILS % (AUTO) 0.6 % (0.0-2.0); EOSINOPHILS % (AUTO) 0.4 % (0.0-6.0); HEMATOCRIT 27 % (39-51); HEMOGLOBIN 8.8 g/dL (13.5-17.5); LYMPHOCYTES # (AUTO) 2.4 /CMM (0.8-4.8); MEAN CORPUSCULAR HGB CONC 32 g/dl (31.0-36.0); MEAN CORPUSCULAR VOLUME 85 fL (80-96); MONOCYTES # (AUTO) 1.5 /CMM (0.1-1.30); MONOCYTES % (AUTO) 8.6 % (2.0-12.0); NEUTROPHILS # (AUTO) 13.1 /CMM (1.8-8.9); NEUTROPHILS % (AUTO) 76.4 % (43.0-81.0); PLATELET COUNT (AUTO) 427 /CMM (150-450); RED BLOOD CELL COUNT(AUTO) 3.22 MIL/uL (4.5-6.0); WHITE BLOOD COUNT (AUTO) 17.1 K/uL (4.3-11.0)
[2020-09-27 06:29] LABS: CALCIUM, SERUM 9.2 mg/dL (8.5-10.1); CREATININE 1.6 mg/dL (0.6-1.3); POTASSIUM 5.3 mmol/L (3.5-5.1)
--- NOTE | 2020-09-27 06:54 | NUR ---
RN NOTES PT REMAINS IN BED, TOLERATING VENT SETTINGS, SUCTIONED NEEDED.NO RESP DISTRESS NOTED, SATING AT 100%. CONTINUE ON GT FEEDING OF JEVITY 1.2 AT 75ML/HR, TOLERATED WELL. NO RESIDUALS NOTED. KEPT HOB ELEVATED. FSBS AT 90. NO INSULIN COVERAGE GIVEN. ALL IV LINES REMAIN PATENT AND INTACT. FEVER SUBSIDED, T 98. WOUND TX DONE ORDERED. REPOSITIONED Q2H. ALL SAFETY MEASURES MAINTAINED. WILL ENDORSE TO NEXT SHIFT NURSE FOR JENNY.
--- NOTE | 2020-09-27 07:51 | NUR ---
SILK SNAPPER NOTE PATIENT IN BED WITH TRACH TO VENT SETTING ORDERED RT AT BEDSIDE ,TRACH AND ORAL SUCTION DONE, OBTUNDED , ON TELE MONITOR ST 90 AT THIS TIME, WITH JACOBSON CATH TO GRAVITY WITH YELLOW COLOR URINE, WITH GEVITY ORDERED ,KEEP HOB ELEVATED AT ALL TIME , BED IN LOWEST AND LOCKED POSITION , CALL LIGHT WITHIN REACH WITH EYAL MID LINE IN PLACE AND FLUSHED WELL , RT EJ G HL INTACT WILL CONT TO MONITOR,
[2020-09-27 08:00] VITALS: BP 128/67
[2020-09-27] MEDS: FERROUS SULFATE (325 MG) 325 MG/TAB TABLET GT SCH ×2 (09:11→16:13)
[2020-09-27] MEDS: BACLOFEN (10 MG) 10 MG TABLET GT SCH ×3 (09:11→16:13)
[2020-09-27] MEDS: LEVETIRACETAM SOL (5 ML) 100 MG/ML UDC GT SCH ×2 (09:11→21:07)
[2020-09-27] MEDS: MULTIVIT W/MINERALS 1 TAB TABLET GT SCH (09:11)
[2020-09-27] MEDS: ASCORBIC ACID 500 MG TABLET GT SCH (09:11)
[2020-09-27] MEDS: DOCUSATE SODIUM LIQ 100 MG/10 ML UDC GT SCH (09:11)
[2020-09-27] MEDS: METOPROLOL TARTRATE 25 MG TABLET GT SCH ×2 (09:12→16:14)
[2020-09-27] MEDS: AMLODIPINE BESYLATE 5 MG TABLET GT SCH (09:13)
[2020-09-27] MEDS: PROSOURCE / PROSTAT (PYXIS) 30 ML UDC GT SCH (09:13)
[2020-09-27] MEDS: DAKINS QUARTER STRENGTH (0.125%) 480 ML BOTTLE TOP SCH ×2 (09:32)
[2020-09-27] MEDS: MUPIROCIN OINT 2% 22 GM TUBE NS SCH (09:33)
[2020-09-27] MEDS: CHLORHEXIDINE GLUCONATE 15 ML UDC MM SCH ×2 (09:34→21:07)
[2020-09-27] MEDS: ENOXAPARIN SODIUM 30 MG/0.3 ML DISP.SYRIN SQ SCH (09:35)
[2020-09-27] MEDS ORDERED: SILVER NITRATE APPLICATOR 1 EA BOX TP ONE (10:30)
--- NOTE | 2020-09-27 10:30 | NUR ---
CARDROOM HAND NOTE BIN WORKER CLINICAL IMPLEMENTATION SPECIALIST NURSE AT BEDSIDE ,DEBRIDEMENT ON SACRAL DONE, ALL NEEDS ATTENDED, WILL MONITOR
--- NOTE | 2020-09-27 11:09 | NUR ---
COMMERCIAL REVIEW APPRAISER NOTE RT AST BEDSIDE TRACH SUCTION DONE
[2020-09-27] MEDS: JEVITY 1.2 CAL 1,000 ML BOTTLE GT SCH (11:52)
[2020-09-27 12:00] VITALS: BP 112/63
[2020-09-27] MEDS: AMPICILLIN 1 GM in IV NS 0.9% 50 ML IV SCH ×2 (12:16→17:21)
--- NOTE | 2020-09-27 13:30 | NUR ---
CRACKING AND FANNING MACHINE OPERATOR NOTE TURN REPOSITION, KEEP CLEAN DRY . WILL MONITOR
[2020-09-27 16:00] VITALS: BP 125/63
--- NOTE | 2020-09-27 17:28 | NUR ---
PULVERIZER NOTE MID LINE PARTIALLY OUT ,CALLED TO NURSING DIRECTOR BUSINESS TRAVEL TO INSERT NEW MID LINE, PICC LINENURSE WILL BE HERE ABOUT 8 PM ,WILL F\U
--- NOTE | 2020-09-27 18:27 | NUR ---
SCIENCE TECHNICIAN NOTE PATIENT IN BED , ALL NEEDS ATTENDED, ON G TUBE FEEDING ORDERED, KEEP HOB ELEVATED AT ALL TIME, WITH TRACH TO VENT SETTING ORDERED WITH JACOBSON CATH TO GRAVITY ,AWAITING FOR MID LINE NURSE TO COME
[2020-09-27 20:00] VITALS: BP 104/63
[2020-09-27] MEDS: FAMOTIDINE (20 MG) 20 MG TABLET GT SCH (21:08)
--- NOTE | 2020-09-27 21:55 | NUR ---
RN NOTES, MIDLINE IN EYAL INSERTED AT THIS TIME, NO COMPLICATIONS, PATIENT TOLERATED PROCEDURE WELL, WILL CONTINUE TO MONITOR CLOSELY.
[2020-09-28] VITALS: BP 114/62
[2020-09-28] MEDS: AMPICILLIN 1 GM in IV NS 0.9% 50 ML IV SCH ×5 (00:12→23:04)
[2020-09-28] MEDS: BLOOD SUGAR DIAGNOSTIC 1 EACH STRIP IN SCH ×5 (00:12→23:04)
[2020-09-28] MEDS: INSULIN REGULAR, HUMAN 100 UNIT/ML 3 ML VIAL SQ PRN ×4 (00:13→18:03)
[2020-09-28] MEDS: IPRATROPIUM NEB FS 0.5 MG/2.5 ML AMPUL.NEB NEB SCH ×4 (02:05→19:32)
[2020-09-28 04:00] VITALS: BP 119/66
[2020-09-28 06:21] LABS: BASOPHILS # (AUTO) 0.1 /CMM (0.0-0.2); BASOPHILS % (AUTO) 0.4 % (0.0-2.0); EOSINOPHILS % (AUTO) 0.6 % (0.0-6.0); HEMATOCRIT 25 % (39-51); HEMOGLOBIN 7.9 g/dL (13.5-17.5); LYMPHOCYTES # (AUTO) 2.5 /CMM (0.8-4.8); LYMPHOCYTES % (AUTO) 13.7 % (20.0-44.0); MEAN CORPUSCULAR HGB CONC 32 g/dl (31.0-36.0); MEAN CORPUSCULAR VOLUME 85 fL (80-96); MONOCYTES # (AUTO) 1.7 /CMM (0.1-1.30); MONOCYTES % (AUTO) 9.5 % (2.0-12.0); NEUTROPHILS # (AUTO) 13.7 /CMM (1.8-8.9); NEUTROPHILS % (AUTO) 75.8 % (43.0-81.0); PLATELET COUNT (AUTO) 507 /CMM (150-450); RED BLOOD CELL COUNT(AUTO) 2.88 MIL/uL (4.5-6.0)
[2020-09-28 06:50] LABS: CALCIUM, SERUM 8.7 mg/dL (8.5-10.1); CREATININE 1.5 mg/dL (0.6-1.3); POTASSIUM 4.3 mmol/L (3.5-5.1)
--- NOTE | 2020-09-28 06:59 | NUR ---
RN NOTES, NO SIGNIFICANT CHANGE IN CONDITION DURING THE NIGHT, WILL ENDORSE CONTINUITY OF CARE TO ONCOMING NURSE.
--- NOTE | 2020-09-28 07:10 | NUR ---
RN OPENING NOTE RECEIVED PT IN BED, OBTUNDED. ON TRACH/MECH VENT, TOLERATING SETTINGS WELL. O2 SAT @100. NO SOB OR ANY DISTRESS NOTED. SR ON TELE MONITOR. GT PATENT AND INTACT WITH POSITIVE PLACEMENT. FEEDING OF JEVITY 1.2 @75ML/HR, WITH 30CC RESIDUAL NOTED. HOB ELEVATED. EYAL MIDLINE INTACT, PATENT AND FLUSHED. JACOBSON CATH DRAINING CLEAR YELLOW URINE TO GRAVITY. SAFETY MEASURES IN PLACE. CALL LIGHT WITHIN REACH. BED LOCKED AND AT LOWEST POSITION WITH SIDE RAILS UP X2. WILL CONTINUE TO MONITOR.
[2020-09-28 08:00] VITALS: BP 117/68
[2020-09-28] MEDS: DOCUSATE SODIUM LIQ 100 MG/10 ML UDC GT SCH (08:58)
[2020-09-28] MEDS: MULTIVIT W/MINERALS 1 TAB TABLET GT SCH (08:58)
[2020-09-28] MEDS: ACETAMINOPHEN 325 MG TABLET PO PRN ×2 (08:58→20:38)
[2020-09-28] MEDS: CHLORHEXIDINE GLUCONATE 15 ML UDC MM SCH ×2 (08:58→20:38)
[2020-09-28] MEDS: FERROUS SULFATE (325 MG) 325 MG/TAB TABLET GT SCH ×2 (08:59→16:54)
[2020-09-28] MEDS: BACLOFEN (10 MG) 10 MG TABLET GT SCH ×3 (08:59→16:54)
[2020-09-28] MEDS: LEVETIRACETAM SOL (5 ML) 100 MG/ML UDC GT SCH ×2 (08:59→20:38)
[2020-09-28] MEDS: ASCORBIC ACID 500 MG TABLET GT SCH (08:59)
[2020-09-28] MEDS: AMLODIPINE BESYLATE 5 MG TABLET GT SCH (09:00)
[2020-09-28] MEDS: ENOXAPARIN SODIUM 30 MG/0.3 ML DISP.SYRIN SQ SCH (09:00)
[2020-09-28] MEDS: METOPROLOL TARTRATE 25 MG TABLET GT SCH ×2 (09:00→16:55)
[2020-09-28] MEDS: DAKINS QUARTER STRENGTH (0.125%) 480 ML BOTTLE TOP SCH ×2 (09:01)
[2020-09-28] MEDS: PROSOURCE / PROSTAT (PYXIS) 30 ML UDC GT SCH (09:01)
--- NOTE | 2020-09-28 10:48 | NUR ---
RN NOTES POSSIBLE WOUND DEBRIDEMENT, MOHINDER ESCOBEDO PER .
--- NOTE | 2020-09-28 11:53 | NUR ---
RN NOTES BS OF 104, NO INSULIN COVERAGE.
[2020-09-28 12:00] VITALS: BP 115/75
[2020-09-28] MEDS: JEVITY 1.2 CAL 1,000 ML BOTTLE GT SCH (12:05)
[2020-09-28 16:00] VITALS: BP 103/65
--- NOTE | 2020-09-28 18:03 | NUR ---
RN NOTES BS OF 99, NO INSULIN COVERAGE.
--- NOTE | 2020-09-28 18:43 | NUR ---
RN CLOSING NOTES NO SIGNIFICANT CHANGES THROUGHOUT THE SHIFT. TOLERATING VENT SETTINGS WELL. ALL DUE MEDS GIVEN. NEEDS ATTENDED. KEPT COMFORTABLE. SAFETY MEASURES STILL IN PLACE. WILL ENDORSE TO NIGHT RN FOR JENNY.
--- NOTE | 2020-09-28 19:16 | NUR ---
RN NOTE RECEIVED PT IN BED OBTUNDED BUT PHYSICALLY RESPONSIVE TO VERBAL AND TACTILE STIMULI. HEAD OF BED ELEVATED. WITH TRACH CONNECTED TO VENT. TOLERATING VENT SETTINGS WELL. SR ON THE MECHANICAL ORDNANCE ASSEMBLER. GT PATENT AND IN PLACE. WITH TUBE FEEDING RUNNING ORDERED WITH MINIMAL RESIDUAL NOTED. FLUSHED. RIGHT UPPER ARM MIDLINE INTACT. JACOBSON CATHETER PATENT AND IN PLACE DRAINING URINE VIA GRAVITY. ALARMS ON AND AUDIBLE, AMBU BAG AT BEDSIDE, SAFETY MEASURES IN PLACE PER PROTOCOL, BED ALARM ON, BED LOCKED AND IN LOW POSITION, SIDE RAILS UP X 2, WILL MONITOR PATIENT.
[2020-09-28 20:00] VITALS: BP 118/64
[2020-09-28] MEDS: FAMOTIDINE (20 MG) 20 MG TABLET GT SCH (21:03)
[2020-09-29] VITALS: BP 141/75
--- NOTE | 2020-09-29 | NUR ---
RN NOTE COMPLETE BED BATH AND AM CARE COMPLETED. PT TOLERATED WELL.
[2020-09-29] MEDS: IPRATROPIUM NEB FS 0.5 MG/2.5 ML AMPUL.NEB NEB SCH ×4 (01:40→19:43)
[2020-09-29 04:00] VITALS: BP 132/68
[2020-09-29] MEDS: BLOOD SUGAR DIAGNOSTIC 1 EACH STRIP IN SCH ×4 (05:09→23:49)
[2020-09-29] MEDS: AMPICILLIN 1 GM in IV NS 0.9% 50 ML IV SCH ×4 (05:09→23:26)
[2020-09-29 05:55] LABS: BASOPHILS # (AUTO) 0.2 /CMM (0.0-0.2); EOSINOPHILS % (AUTO) 0.6 % (0.0-6.0); HEMATOCRIT 25 % (39-51); HEMOGLOBIN 7.9 g/dL (13.5-17.5); LYMPHOCYTES # (AUTO) 2.5 /CMM (0.8-4.8); LYMPHOCYTES % (AUTO) 14.3 % (20.0-44.0); MEAN CORPUSCULAR HGB CONC 32 g/dl (31.0-36.0); MEAN CORPUSCULAR VOLUME 85 fL (80-96); MONOCYTES # (AUTO) 1.5 /CMM (0.1-1.30); MONOCYTES % (AUTO) 8.6 % (2.0-12.0); NEUTROPHILS # (AUTO) 13.5 /CMM (1.8-8.9); NEUTROPHILS % (AUTO) 75.5 % (43.0-81.0); PLATELET COUNT (AUTO) 633 /CMM (150-450); RED BLOOD CELL COUNT(AUTO) 2.93 MIL/uL (4.5-6.0); WHITE BLOOD COUNT (AUTO) 17.8 K/uL (4.3-11.0)
--- NOTE | 2020-09-29 06:28 | NUR ---
RN NOTE NO ACUTE CHANGES OBSERVED OVERNIGHT. PT REMAINS OBTUNDED BUT PHYSICALLY RESPONSIVE TO STIMULI, TOLERATING VENT SETTINGS WELL. SR ON THE MICRO COMPUTER DATA PROCESSOR. GT PATENT. WITH TUBE FEEDING RUNNING ORDERED, MINIMAL RESIDUAL NOTED, TOLERATING TUBE FEEDING WELL, RIGHT UPPER ARM MIDLINE PATENT. JACOBSON CATHETER PATENT AND IN PLACE DRAINING URINE VIA GRAVITY, ORAL CARE DONE PER PROTOCOL, SAFETY MEASURES IN PLACE, WILL ENDORSE TO MORNING RN FOR JENNY.
[2020-09-29 06:36] LABS: CALCIUM, SERUM 8.7 mg/dL (8.5-10.1); CREATININE 1.4 mg/dL (0.6-1.3); POTASSIUM 4.3 mmol/L (3.5-5.1)
--- NOTE | 2020-09-29 07:30 | NUR ---
RN opening notes patient present in bed, a/ox0, obtunded, tolerating vent settings well, no sob, no distress, no s/sx of pain, Mazariegos cath in place, draining yellow urine by gravity, IV ,line flushed, intact, HOB elevated, bed locked, in lowest position, will cont to monitor
[2020-09-29 08:00] VITALS: BP 125/62
[2020-09-29] MEDS: METOPROLOL TARTRATE 25 MG TABLET GT SCH ×2 (08:06→16:25)
[2020-09-29] MEDS: DOCUSATE SODIUM LIQ 100 MG/10 ML UDC GT SCH (08:06)
[2020-09-29] MEDS: AMLODIPINE BESYLATE 5 MG TABLET GT SCH (08:06)
[2020-09-29] MEDS: MULTIVIT W/MINERALS 1 TAB TABLET GT SCH (08:06)
[2020-09-29] MEDS: BACLOFEN (10 MG) 10 MG TABLET GT SCH ×3 (08:07→16:24)
[2020-09-29] MEDS: FERROUS SULFATE (325 MG) 325 MG/TAB TABLET GT SCH ×2 (08:07→16:24)
[2020-09-29] MEDS: LEVETIRACETAM SOL (5 ML) 100 MG/ML UDC GT SCH ×2 (08:07→21:15)
[2020-09-29] MEDS: CHLORHEXIDINE GLUCONATE 15 ML UDC MM SCH ×2 (08:07→21:15)
[2020-09-29] MEDS: ASCORBIC ACID 500 MG TABLET GT SCH (08:07)
[2020-09-29] MEDS: ENOXAPARIN SODIUM 30 MG/0.3 ML DISP.SYRIN SQ SCH (08:08)
[2020-09-29] MEDS: DAKINS QUARTER STRENGTH (0.125%) 480 ML BOTTLE TOP SCH ×2 (08:09)
[2020-09-29] MEDS: PROSOURCE / PROSTAT (PYXIS) 30 ML UDC GT SCH (09:43)
[2020-09-29 12:00] VITALS: BP 114/65
[2020-09-29] MEDS: INSULIN REGULAR, HUMAN 100 UNIT/ML 3 ML VIAL SQ PRN ×2 (12:07→18:29)
[2020-09-29] MEDS: JEVITY 1.2 CAL 1,000 ML BOTTLE GT SCH (13:33)
--- NOTE | 2020-09-29 15:25 | NUR ---
Patient cleaned, repositioned multiple times, wound care done, gown and linen changed
[2020-09-29 16:00] VITALS: BP 110/59
--- NOTE | 2020-09-29 16:05 | NUR ---
RECEIVED PATIENT ON VENT SETTINGS OF AC 12, VT 400, FIO2 40%, PEEP 5. HAS A TRACH PORTEX 7 CUFFED. AIRWAY PATENT AND SECURE. SMALL TO MODERATE YELLOW, THICK SECRETIONS NOTED. NO RESPIRATORY DISTRESS NOTED. AMBU BAG AT THE BEDSIDE. VENT PLUGGED INTO RED OUTLET. EMERGENCY TRACH AT THE BEDSIDE.
--- NOTE | 2020-09-29 19:00 | NUR ---
RN NOTE PATIENT IN BED OBTUNDED. ON TRACH/MECH VENT, TOLERATING VENT SETTINGS WELL. O2 SAT 100% NO SOB NO DISTRESS NOTED. BREATHING EVEN AND UNLABORED. IV LINE AT R IJ, AND EYAL MIDLINE PATENT AND FLUSHING WELL, SALINE LOCKED. JACOBSON CATHETER CONNECTED TO URINE BAG IN PLACE, DRAINING TO A CLEAR, YELLOW URINE. HEAD OF BED ELEVATED, JEVITY 1.2 @ 75ML/HR, GT PATENT AND INTACT WITH POSITIVE PLACEMENT. NO RESIDUAL NOTED ,EYAL MIDLINE PATENT AND INTACT, SAFETY MEASURES IN PLACE. CALL LIGHT WITHIN REACH. BED LOCKED AND AT LOWEST POSITION WITH SIDE RAILS UP X2. WILL CONTINUE TO MONITOR AND REASSESS FOR CHANGES.
--- NOTE | 2020-09-29 19:16 | NUR ---
RN CLOSING NOTES PATIENT REMAINS IN ROOM, NO ACUTE CHANGES, REPORT GIVEN TO PM SHIFT RN
[2020-09-29 20:00] VITALS: BP 109/58
[2020-09-29] MEDS: FAMOTIDINE (20 MG) 20 MG TABLET GT SCH (21:15)
[2020-09-30] VITALS: BP 112/71
[2020-09-30] MEDS: IPRATROPIUM NEB FS 0.5 MG/2.5 ML AMPUL.NEB NEB SCH ×4 (01:22→20:14)
[2020-09-30 04:00] VITALS: BP 121/81
[2020-09-30] MEDS: AMPICILLIN 1 GM in IV NS 0.9% 50 ML IV SCH ×3 (05:13→17:24)
[2020-09-30] MEDS: BLOOD SUGAR DIAGNOSTIC 1 EACH STRIP IN SCH ×3 (05:21→17:31)
[2020-09-30 06:39] LABS: BASOPHILS # (AUTO) 0.1 /CMM (0.0-0.2); BASOPHILS % (AUTO) 0.8 % (0.0-2.0); EOSINOPHILS % (AUTO) 0.6 % (0.0-6.0); HEMATOCRIT 28 % (39-51); HEMOGLOBIN 8.8 g/dL (13.5-17.5); LYMPHOCYTES # (AUTO) 2.4 /CMM (0.8-4.8); LYMPHOCYTES % (AUTO) 15.6 % (20.0-44.0); MEAN CORPUSCULAR HGB CONC 32 g/dl (31.0-36.0); MEAN CORPUSCULAR VOLUME 85 fL (80-96); MONOCYTES # (AUTO) 1.4 /CMM (0.1-1.30); MONOCYTES % (AUTO) 9.2 % (2.0-12.0); NEUTROPHILS # (AUTO) 11.3 /CMM (1.8-8.9); NEUTROPHILS % (AUTO) 73.8 % (43.0-81.0); PLATELET COUNT (AUTO) 793 /CMM (150-450); RED BLOOD CELL COUNT(AUTO) 3.24 MIL/uL (4.5-6.0); WHITE BLOOD COUNT (AUTO) 15.3 K/uL (4.3-11.0)
[2020-09-30 07:00] LABS: CALCIUM, SERUM 10.4 mg/dL (8.5-10.1); CREATININE 1.4 mg/dL (0.6-1.3); POTASSIUM 4.3 mmol/L (3.5-5.1)
[2020-09-30 08:00] VITALS: BP 133/72
--- NOTE | 2020-09-30 08:00 | NUR ---
PAT[facility]CE[facility] IN BED, [facility] PATIENT ON MONITOR SHOWING SR 80s. PATIENT RUNNING JEVITY THROUGH GT @ 75 ML /HR, NO RESIDUAL. PATIENT HAS EYAL MIDLINE, NO SIGNS OF INFECTION OR INFILTRATION. ALL SAFETY MEASURES IN PLACE. WILL CONTINUE TO MONITOR
[2020-09-30] MEDS: DOCUSATE SODIUM LIQ 100 MG/10 ML UDC GT SCH (08:43)
[2020-09-30] MEDS: BACLOFEN (10 MG) 10 MG TABLET GT SCH ×3 (08:44→17:23)
[2020-09-30] MEDS: FERROUS SULFATE (325 MG) 325 MG/TAB TABLET GT SCH ×2 (08:44→17:24)
[2020-09-30] MEDS: CHLORHEXIDINE GLUCONATE 15 ML UDC MM SCH ×2 (08:44→21:13)
[2020-09-30] MEDS: AMLODIPINE BESYLATE 5 MG TABLET GT SCH (08:44)
[2020-09-30] MEDS: ASCORBIC ACID 500 MG TABLET GT SCH (08:44)
[2020-09-30] MEDS: LEVETIRACETAM SOL (5 ML) 100 MG/ML UDC GT SCH ×2 (08:44→21:13)
[2020-09-30] MEDS: MULTIVIT W/MINERALS 1 TAB TABLET GT SCH (08:44)
[2020-09-30] MEDS: METOPROLOL TARTRATE 25 MG TABLET GT SCH ×2 (08:45→17:23)
[2020-09-30] MEDS: PROSOURCE / PROSTAT (PYXIS) 30 ML UDC GT SCH (08:45)
[2020-09-30] MEDS: ENOXAPARIN SODIUM 30 MG/0.3 ML DISP.SYRIN SQ SCH (08:52)
[2020-09-30] MEDS: DAKINS QUARTER STRENGTH (0.125%) 480 ML BOTTLE TOP SCH ×2 (09:04)
[2020-09-30 12:00] VITALS: BP 121/74
[2020-09-30] MEDS: ASPIRIN 81 MG TAB.CHEW PO SCH (15:50)
[2020-09-30 16:00] VITALS: BP_SYST 114; BP_DIAS 72; BP_DIAS 74
[2020-09-30] MEDS: ACETAMINOPHEN 325 MG TABLET PO PRN (17:22)
[2020-09-30] MEDS: JEVITY 1.2 CAL 1,000 ML BOTTLE GT SCH (18:09)
--- NOTE | 2020-09-30 19:12 | NUR ---
PATIENT REMAINS IN BED NO ACUTE CHANGE IN CONDITION. ALL SAFETY MEASURES IN PLACE. ALL NEEDS ENDORSED TO ONCOMING RN FOR JENNY
[2020-09-30 20:00] VITALS: BP 109/67
[2020-09-30] MEDS: FAMOTIDINE (20 MG) 20 MG TABLET GT SCH (21:13)
[2020-10-01] VITALS: BP 120/76
[2020-10-01] MEDS: AMPICILLIN 1 GM in IV NS 0.9% 50 ML IV SCH ×5 (00:26→23:05)
[2020-10-01] MEDS: BLOOD SUGAR DIAGNOSTIC 1 EACH STRIP IN SCH ×5 (00:26→23:29)
[2020-10-01] MEDS: IPRATROPIUM NEB FS 0.5 MG/2.5 ML AMPUL.NEB NEB SCH ×4 (01:48→19:18)
[2020-10-01 04:00] VITALS: BP 134/82
[2020-10-01 05:55] LABS: BASOPHILS # (AUTO) 0.2 /CMM (0.0-0.2); EOSINOPHILS % (AUTO) 0.8 % (0.0-6.0); HEMATOCRIT 25 % (39-51); HEMOGLOBIN 7.9 g/dL (13.5-17.5); LYMPHOCYTES # (AUTO) 2.5 /CMM (0.8-4.8); MEAN CORPUSCULAR HGB CONC 32 g/dl (31.0-36.0); MEAN CORPUSCULAR VOLUME 86 fL (80-96); MONOCYTES # (AUTO) 1.4 /CMM (0.1-1.30); MONOCYTES % (AUTO) 9.1 % (2.0-12.0); NEUTROPHILS # (AUTO) 11.4 /CMM (1.8-8.9); NEUTROPHILS % (AUTO) 73.1 % (43.0-81.0); PLATELET COUNT (AUTO) 783 /CMM (150-450); RED BLOOD CELL COUNT(AUTO) 2.86 MIL/uL (4.5-6.0); WHITE BLOOD COUNT (AUTO) 15.6 K/uL (4.3-11.0)
[2020-10-01 06:46] LABS: CALCIUM, SERUM 9.5 mg/dL (8.5-10.1); CREATININE 1.5 mg/dL (0.6-1.3); POTASSIUM 4.3 mmol/L (3.5-5.1)
--- NOTE | 2020-10-01 07:29 | NUR ---
RT Pt received trached on mechanical ventilation with noted settings. Pt is awake but does not follow commands. Vent is plugged into red outlet, spare tracheostomy tube by bedside. No SOB or respiratory distress noted. Addendum: 10/01/20 at 1329 by BETY CHAHAL RT Amended: Links added.
[2020-10-01 08:00] VITALS: BP 119/78
--- NOTE | 2020-10-01 08:00 | NUR ---
PATIENT RECEIVED IN BED ON [facility] VENT, OBTUNDED. PATIENT HAS EYAL MIDLINE IN PLACE. NO SIGNS OF INFECTION OF INFILTRATION. PT ON MONITOR SHOWING SR. JEVITY RUNNING AT 75 ML/HR, NO RESIDUAL. ALL SAFETY MEASURES IN PLACE. WILL CONTINUE TO MONITOR
[2020-10-01] MEDS: ASCORBIC ACID 500 MG TABLET GT SCH (08:20)
[2020-10-01] MEDS: LEVETIRACETAM SOL (5 ML) 100 MG/ML UDC GT SCH ×2 (08:20→20:27)
[2020-10-01] MEDS: CHLORHEXIDINE GLUCONATE 15 ML UDC MM SCH ×2 (08:20→20:27)
[2020-10-01] MEDS: DOCUSATE SODIUM LIQ 100 MG/10 ML UDC GT SCH (08:20)
[2020-10-01] MEDS: FERROUS SULFATE (325 MG) 325 MG/TAB TABLET GT SCH ×2 (08:21→16:54)
[2020-10-01] MEDS: MULTIVIT W/MINERALS 1 TAB TABLET GT SCH (08:21)
[2020-10-01] MEDS: ASPIRIN 81 MG TAB.CHEW PO SCH (08:21)
[2020-10-01] MEDS: METOPROLOL TARTRATE 25 MG TABLET GT SCH ×2 (08:21→16:54)
[2020-10-01] MEDS: BACLOFEN (10 MG) 10 MG TABLET GT SCH ×3 (08:21→16:54)
[2020-10-01] MEDS: AMLODIPINE BESYLATE 5 MG TABLET GT SCH (08:22)
[2020-10-01] MEDS: DAKINS QUARTER STRENGTH (0.125%) 480 ML BOTTLE TOP SCH ×2 (08:22→08:23)
[2020-10-01] MEDS: PROSOURCE / PROSTAT (PYXIS) 30 ML UDC GT SCH (08:22)
[2020-10-01] MEDS: ENOXAPARIN SODIUM 30 MG/0.3 ML DISP.SYRIN SQ SCH (08:28)
[2020-10-01 12:00] VITALS: BP 119/78
[2020-10-01] MEDS: JEVITY 1.2 CAL 1,000 ML BOTTLE GT SCH (14:43)
[2020-10-01 16:00] VITALS: BP 133/82
--- NOTE | 2020-10-01 18:00 | NUR ---
ALL WOUND TX COMPLETED DIRECTED, REPOSITIONED Q2H
--- NOTE | 2020-10-01 19:00 | NUR ---
PATIENT REMAINS IN BED NO ACUTE CHANGE IN CONDITION. PATIENT ON MECH VENT, OBTUNDED. PATIENT HAS EYAL MIDLINE IN PLACE. NO SIGNS OF INFECTION OF INFILTRATION. JEVITY CONTINUES TO RUN AT 75 ML/HR, NO RESIDUAL. ALL SAFETY MEASURES IN PLACE. ALL NEEDS ENDORSED TO KIMMY FOR JENNY.
--- NOTE | 2020-10-01 19:50 | NUR ---
RN NOTE PATIENT IN BED WITH HEAD OF BED ELEVATED. PATIENT IS OBTUNDED, ON MECH VENT TOLERATING SETTINGS WELL. TELE MONITOR ON, HR 70'S. WITH JACOBSON CATH DRAINING YELLOW URINE TO GRAVITY. G-TUBE PATENT AND INTACT RUNNING JEVITY 1.2 @ 75ML/HR. EYAL MIDLINE PATENT, NO S/S OF ANY INFILTRATION. BED LOCKED AND IN LOWEST POSITION. SIDE RAILS UP X2. CALL LIGHT WITHIN REACH. WILL CONTINUE TO MONITOR.
[2020-10-01 20:00] VITALS: BP 100/64
[2020-10-01] MEDS: FAMOTIDINE (20 MG) 20 MG TABLET GT SCH (21:09)
[2020-10-01] MEDS: INSULIN REGULAR, HUMAN 100 UNIT/ML 3 ML VIAL SQ PRN (23:29)
[2020-10-02] VITALS: BP_SYST 102; BP_SYST 114; BP_DIAS 66; BP_DIAS 67
--- NOTE | 2020-10-02 | NUR ---
BLOOD SUGAR 104, NO INSULIN COVERAGE PER MD ORDER.
[2020-10-02] MEDS: IPRATROPIUM NEB FS 0.5 MG/2.5 ML AMPUL.NEB NEB SCH ×4 (02:10→19:48)
[2020-10-02 04:00] VITALS: BP 115/73
[2020-10-02] MEDS: AMPICILLIN 1 GM in IV NS 0.9% 50 ML IV SCH ×4 (05:12→23:25)
[2020-10-02] MEDS: BLOOD SUGAR DIAGNOSTIC 1 EACH STRIP IN SCH ×3 (05:19→17:42)
[2020-10-02] MEDS: INSULIN REGULAR, HUMAN 100 UNIT/ML 3 ML VIAL SQ PRN (05:20)
--- NOTE | 2020-10-02 05:22 | NUR ---
BLOOD SUGAR 105, NO INSULIN COVERAGE PER MD ORDER.
--- NOTE | 2020-10-02 05:32 | NUR ---
RT NOTE Pt rec'd trached on [facility] vent on AC mode settings as charted. Pt shows no signs of resp distress or sob. Trach is patent and secured. Sx'd for thick mod amt of pale yellow. Vent plugged into red outlet. Alarms are set and audible. Ambu bag and emergency spare trach is bedside. Will continue to monitor closely Addendum: 10/02/20 at 0532 by JAMEE CARTER RT Amended: Links added.
--- NOTE | 2020-10-02 06:30 | NUR ---
RN NOTE LAB UNABLE TO DRAW BLOOD X3. WILL COME BACK LATER TO DRAW LABS. WILL INFORM ONCOMING SHIFT.
--- NOTE | 2020-10-02 06:43 | NUR ---
RN NOTE PATIENT IN BED WITH HEAD OF BED ELEVATED. PATIENT IS OBTUNDED, ON MECH VENT TOLERATING SETTINGS WELL. WITH JACOBSON CATH DRAINING YELLOW URINE TO GRAVITY OUTPUT OF 800. G-TUBE PATENT AND INTACT. EYAL MIDLINE PATENT, NO S/S OF ANY INFILTRATION. ALL DUE MEDS GIVEN OREDERED. TURNED AND REPOSITIONED PER PROTOCOL. KEPT CLEAN AND DRY. BED LOCKED AND IN LOWEST POSITION. SIDE RAILS UP X2. CALL LIGHT WITHIN REACH. WILL ENDORSE TO ONCOMING SHIFT.
--- NOTE | 2020-10-02 07:35 | NUR ---
RT Pt received trached on mechanical ventilation with noted settings. Pt is awake but does not follow commands. Vent is plugged into red outlet with spare tracheostomy tube by bedside. No SOB or respiratory distress noted. Addendum: 10/02/20 at 0754 by BETY CHAHAL RT Amended: Links added.
--- NOTE | 2020-10-02 07:52 | NUR ---
PATIENT RECEIVED IN BED ON PRESCRIBED VENT/TRACH SETTINGS, OBTUNDED. PATIENT ON MONITOR SHOWING SR. PATIENT IS CONTRACTED WITH SACRAL WOUND AND BILATERAL HEEL WOUNDS. PATIENT HAS EYAL MIDLINE FLUSHED AND INTACT. NO SIGNS OF INFECTION OR INFILTRATION. PATIENT HAS G-TUBE AUSCULTATED RUNNING JEVITY AT 75 ML/HR, TO BE RESUMED AT 0800 DIRECTED. ALL SAFETY MEASURES IN PLACE, WILL CONTINUE TO MONITOR
[2020-10-02 08:00] VITALS: BP 124/84
[2020-10-02 08:15] LABS: BASOPHILS # (AUTO) 0.2 /CMM (0.0-0.2); BASOPHILS % (AUTO) 1.4 % (0.0-2.0); EOSINOPHILS % (AUTO) 0.9 % (0.0-6.0); HEMATOCRIT 29 % (39-51); HEMOGLOBIN 9.2 g/dL (13.5-17.5); LYMPHOCYTES # (AUTO) 2.7 /CMM (0.8-4.8); LYMPHOCYTES % (AUTO) 19.4 % (20.0-44.0); MEAN CORPUSCULAR HGB CONC 32 g/dl (31.0-36.0); MEAN CORPUSCULAR VOLUME 85 fL (80-96); MONOCYTES # (AUTO) 1.3 /CMM (0.1-1.30); MONOCYTES % (AUTO) 9.8 % (2.0-12.0); NEUTROPHILS # (AUTO) 9.4 /CMM (1.8-8.9); NEUTROPHILS % (AUTO) 68.5 % (43.0-81.0); PLATELET COUNT (AUTO) 841 /CMM (150-450); RED BLOOD CELL COUNT(AUTO) 3.36 MIL/uL (4.5-6.0); WHITE BLOOD COUNT (AUTO) 13.7 K/uL (4.3-11.0)
[2020-10-02 08:24] LABS: CALCIUM, SERUM 9.4 mg/dL (8.5-10.1); CREATININE 1.4 mg/dL (0.6-1.3); POTASSIUM 4.6 mmol/L (3.5-5.1)
[2020-10-02] MEDS: FERROUS SULFATE (325 MG) 325 MG/TAB TABLET GT SCH ×2 (08:26→17:41)
[2020-10-02] MEDS: LEVETIRACETAM SOL (5 ML) 100 MG/ML UDC GT SCH ×2 (08:26→21:07)
[2020-10-02] MEDS: METOPROLOL TARTRATE 25 MG TABLET GT SCH ×2 (08:26→17:42)
[2020-10-02] MEDS: ASCORBIC ACID 500 MG TABLET GT SCH (08:26)
[2020-10-02] MEDS: MULTIVIT W/MINERALS 1 TAB TABLET GT SCH (08:26)
[2020-10-02] MEDS: BACLOFEN (10 MG) 10 MG TABLET GT SCH ×3 (08:26→17:41)
[2020-10-02] MEDS: ASPIRIN 81 MG TAB.CHEW PO SCH (08:26)
[2020-10-02] MEDS: AMLODIPINE BESYLATE 5 MG TABLET GT SCH (08:26)
[2020-10-02] MEDS: CHLORHEXIDINE GLUCONATE 15 ML UDC MM SCH ×2 (08:26→21:07)
[2020-10-02] MEDS: DOCUSATE SODIUM LIQ 100 MG/10 ML UDC GT SCH (08:26)
[2020-10-02] MEDS: DAKINS QUARTER STRENGTH (0.125%) 480 ML BOTTLE TOP SCH ×2 (08:27)
[2020-10-02] MEDS: PROSOURCE / PROSTAT (PYXIS) 30 ML UDC GT SCH (08:27)
[2020-10-02 08:28] LABS: D-DIMER 1.51 mg/L(FEU (0.17-0.50)
[2020-10-02] MEDS: ENOXAPARIN SODIUM 30 MG/0.3 ML DISP.SYRIN SQ SCH (08:28)
[2020-10-02] MEDS: JEVITY 1.2 CAL 1,000 ML BOTTLE GT SCH (08:43)
[2020-10-02] MEDS: ACETAMINOPHEN 325 MG TABLET PO PRN (09:00)
--- NOTE | 2020-10-02 09:00 | NUR ---
0800 TEMP 99.7. R. ACETAMINOPHEN GIVEN DIRECTED
[2020-10-02 12:00] VITALS: BP 111/70
[2020-10-02] MEDS: TOBRAMYCIN IV SCH ×2 (12:48→12:51)
[2020-10-02] MEDS: NS 0.9% IV SCH ×2 (12:48→12:51)
[2020-10-02 16:00] VITALS: BP 109/68
--- NOTE | 2020-10-02 19:30 | NUR ---
BASKET PERSON NOTES, RECEIVED PATIENT ON MECHANICAL VENTILATOR, TOLERATED SETTINGS WELL, OBTUNDED, NO SOB/ACUTE DISTRESS NOTED AT THIS TIME, PATIENT ON SR ON TELE MONITOR WITH HR 70S AT THIS TIME, EYAL MIDLINE IN PLACED PATENT AND INTACT, G-TUBE IN PLACED, INFUSING JEVITY AT 75 ML/HR, HOB ELEVATED FOR ASPIRATION PRECAUTIONS, S/R OF BED UP X2, ALL SAFETY MEASURES IN PLACE, WILL CONTINUE TO MONITOR CLOSELY.
--- NOTE | 2020-10-02 19:39 | NUR ---
PATIENT REMAINS IN BED NO ACUTE CHANGES IN CONDITION. PATIENT TO HAVE PICC LINE INSERTED TOMORROW, CONSENT OBTAINED VIA TELEPHONE TO PATIENT MOTHER BART LI. ALL WOUND TX COMPLETED THIS SHIFT. ALL NEEDS ENDORSED TO ONCOMING RN FOR JENNY
[2020-10-02 20:00] VITALS: BP 123/63
[2020-10-02] MEDS: FAMOTIDINE (20 MG) 20 MG TABLET GT SCH (21:07)
[2020-10-03] VITALS: BP 114/67
[2020-10-03] MEDS: BLOOD SUGAR DIAGNOSTIC 1 EACH STRIP IN SCH ×5 (00:28→23:36)
[2020-10-03] MEDS: INSULIN REGULAR, HUMAN 100 UNIT/ML 3 ML VIAL SQ PRN ×3 (00:29→23:37)
[2020-10-03] MEDS: JEVITY 1.2 CAL 1,000 ML BOTTLE GT SCH ×2 (01:40→17:16)
[2020-10-03] MEDS: IPRATROPIUM NEB FS 0.5 MG/2.5 ML AMPUL.NEB NEB SCH ×4 (01:52→20:05)
[2020-10-03 04:00] VITALS: BP 115/73
[2020-10-03] MEDS: ACETAMINOPHEN 325 MG TABLET PO PRN ×2 (04:28→16:58)
[2020-10-03] MEDS: AMPICILLIN 1 GM in IV NS 0.9% 50 ML IV SCH ×4 (05:32→23:24)
[2020-10-03 05:51] LABS: BASOPHILS # (AUTO) 0.1 /CMM (0.0-0.2); BASOPHILS % (AUTO) 1.1 % (0.0-2.0); EOSINOPHILS % (AUTO) 1.2 % (0.0-6.0); HEMATOCRIT 25 % (39-51); HEMOGLOBIN 8.1 g/dL (13.5-17.5); LYMPHOCYTES # (AUTO) 2.5 /CMM (0.8-4.8); LYMPHOCYTES % (AUTO) 19.5 % (20.0-44.0); MEAN CORPUSCULAR HGB CONC 32 g/dl (31.0-36.0); MEAN CORPUSCULAR VOLUME 86 fL (80-96); MONOCYTES # (AUTO) 1.5 /CMM (0.1-1.30); MONOCYTES % (AUTO) 11.5 % (2.0-12.0); NEUTROPHILS # (AUTO) 8.5 /CMM (1.8-8.9); NEUTROPHILS % (AUTO) 66.7 % (43.0-81.0); PLATELET COUNT (AUTO) 800 /CMM (150-450); RED BLOOD CELL COUNT(AUTO) 2.92 MIL/uL (4.5-6.0); WHITE BLOOD COUNT (AUTO) 12.8 K/uL (4.3-11.0)
[2020-10-03 06:12] LABS: CALCIUM, SERUM 9.1 mg/dL (8.5-10.1); CREATININE 1.3 mg/dL (0.6-1.3); POTASSIUM 4.5 mmol/L (3.5-5.1)
--- NOTE | 2020-10-03 07:30 | NUR ---
COMMERCIAL SUBCONTRACTOR AM NOTES: RECEIVED PT OBTUNDED, IN BED, WITH PORTEX 7 TO MECHANICAL VENT, SETTING ORDERED, WELL TOLERATED O2 SAT AT 100%. BREATHING EVEN AND UNLABORED. NO SOB NOTED. AMBU BAG AT BED SIDE ALARMS SET PER PROTOCOL AND AUDIBLE. VENT PLUGGED IN TO RED OUTLET. SINUS RHYTHM ON MONITOR HR 90, NO SIGNS OF PAIN OR ANY DISCOMFORT. EYAL MIDLINE, RT JUGULAR H18, ALL FLUSHES WELL, ALL SITES CLEAR. GT CHECKED FOR PLACEMENT, 0 RESIDUAL, ONGOING TUBE FEEDING OF JEVITY 1.2 @75ML/HR; ON AT 0600 OFF AT 0200. PT TOLERATES WELL. JACOBSON CATH IN PLACE WITH. HEEL PROTECTOR IN PLACE. ON LALM. SEE NURSING ASSESSMENT FOR SKIN ISSUES. SAFETY MEASURES IN PLACE. HEAD OF BED ELEVATED. BED IS LOCKED, IN LOWEST POSITION AND SIDE RAILS UP. CALL LIGHT WITHIN REACH OF THE PATIENT. WILL TURN AND REPOSITION Q 2 HOURS. WILL DO PRESCRIBED WOUND TREATMENT IN A WHILE. APPLICABLE ISOLATION PRECAUTIONS IN PLACE. WILL CONTINUE TO MONITOR AND REASSESS FOR ANY CHANGES AND WILL CARRY OUT ANY ONGOING AND ACTIVE MD ORDER.
--- NOTE | 2020-10-03 07:33 | NUR ---
RN NOTES, WITH EPISODE OF HIGH TEMP 100.8 F PRESCRIPTION BENEFIT SPECIALIST, OTHERWISE NO CHANGE IN CONDITION, ENDORSED TO TERRANCE RN FOR CONTINUATION OF CARE.
[2020-10-03 08:00] VITALS: BP 136/78
[2020-10-03] MEDS: CHLORHEXIDINE GLUCONATE 15 ML UDC MM SCH ×2 (08:34→20:13)
[2020-10-03] MEDS: DOCUSATE SODIUM LIQ 100 MG/10 ML UDC GT SCH (08:34)
[2020-10-03] MEDS: MULTIVIT W/MINERALS 1 TAB TABLET GT SCH (08:35)
[2020-10-03] MEDS: LEVETIRACETAM SOL (5 ML) 100 MG/ML UDC GT SCH ×2 (08:35→20:13)
[2020-10-03] MEDS: AMLODIPINE BESYLATE 5 MG TABLET GT SCH (08:36)
[2020-10-03] MEDS: METOPROLOL TARTRATE 25 MG TABLET GT SCH ×2 (08:36→16:58)
[2020-10-03] MEDS: ASPIRIN 81 MG TAB.CHEW PO SCH (08:36)
[2020-10-03] MEDS: ASCORBIC ACID 500 MG TABLET GT SCH (08:37)
[2020-10-03] MEDS: FERROUS SULFATE (325 MG) 325 MG/TAB TABLET GT SCH ×2 (08:37→16:58)
[2020-10-03] MEDS: BACLOFEN (10 MG) 10 MG TABLET GT SCH ×3 (08:37→16:58)
[2020-10-03] MEDS: ENOXAPARIN SODIUM 40 MG/0.4 ML DISP.SYRIN SQ SCH (08:38)
[2020-10-03] MEDS: DAKINS QUARTER STRENGTH (0.125%) 480 ML BOTTLE TOP SCH ×2 (08:40)
[2020-10-03] MEDS: PROSOURCE / PROSTAT (PYXIS) 30 ML UDC GT SCH (08:41)
--- NOTE | 2020-10-03 09:30 | NUR ---
RN NOTES DUE MEDS GIVEN
[2020-10-03 12:00] VITALS: BP 137/76
[2020-10-03 16:00] VITALS: BP 129/64
--- NOTE | 2020-10-03 18:17 | NUR ---
FIELD HAULER CLOSING NOTES: PT OBTUNDED, IN BED, RESTING,COMFORTABLE, WITH PORTEX 7 TO MECHANICAL VENT, SETTING ORDERED, WELL TOLERATED O2 SAT AT 100%. BREATHING EVEN AND UNLABORED. NO SOB NOTED. AMBU BAG AT BED SIDE ALARMS SET PER PROTOCOL AND AUDIBLE. VENT PLUGGED IN TO RED OUTLET. SINUS RHYTHM ON MONITOR HR 79, NO SIGNS OF PAIN OR ANY DISCOMFORT. EYAL MIDLINE, RT JUGULAR H18, ALL FLUSHES WELL, ALL SITES CLEAR. GT CHECKED FOR PLACEMENT, 0 RESIDUAL, ONGOING TUBE FEEDING OF JEVITY 1.2 @75ML/HR; ON AT 0600 OFF AT 0200. PT TOLERATES WELL. JACOBSON CATH IN PLACE WITH 650 ML OUTPUT. HEEL PROTECTOR IN PLACE. ON LALM. SAFETY MEASURES IN PLACE. HEAD OF BED ELEVATED. BED IS LOCKED, IN LOWEST POSITION AND SIDE RAILS UP. CALL LIGHT WITHIN REACH OF THE PATIENT. TURNED AND REPOSITIONED Q 2 HOURS. PM CARE AND PRESCRIBED WOUND TREATMENT DONE. APPLICABLE ISOLATION PRECAUTIONS IN PLACE. ALL NEEDS MET, NO OTHER SIGNIFICANT CHANGE IN CONDITION. WILL ENDORSE TO SENIOR ASSOCIATE FOR JENNY.
[2020-10-03 20:00] VITALS: BP 111/67
--- NOTE | 2020-10-03 20:00 | NUR ---
RN NOTE PATIENT OBTUNDED IN BED RESTING WITH HEAD OF BED KEPT ELEVATED. [facility], TOLERATING SETTINGS WELL. NO S/S OF ANY DISTRESS. TELE MONITOR ON, SR. G-TUBE PATENT AND INTACT RUNNING JEVITY 1.2 @ 75 ML/HR, NO RESIDUAL NOTED. IV ACCESS ON EYAL MIDLINE PATENT AND INTACT. JACOBSON CATH IN PLACE, DRAINING YELLOW URINE TO GRAVITY. BED LOCKED AND IN LOWEST POSITION. SAFETY MEASURES IN PLACE. WILL CONTINUE TO MONITOR.
[2020-10-03] MEDS: FAMOTIDINE (20 MG) 20 MG TABLET GT SCH (21:10)
[2020-10-03] MEDS ORDERED: NS 0.9% IV SCH (23:00)
[2020-10-03] MEDS ORDERED: TOBRAMYCIN IV SCH (23:00)
--- NOTE | 2020-10-03 23:37 | NUR ---
BLOOD SUGAR 114, NO INSULIN COVERAGE GIVEN PER SLIDING SCALE ORDER.
[2020-10-04] VITALS: BP 110/62
[2020-10-04] MEDS: IPRATROPIUM NEB FS 0.5 MG/2.5 ML AMPUL.NEB NEB SCH ×3 (02:13→13:41)
[2020-10-04 04:00] VITALS: BP 105/57
[2020-10-04] MEDS: AMPICILLIN 1 GM in IV NS 0.9% 50 ML IV SCH ×3 (05:07→17:49)
[2020-10-04] MEDS: BLOOD SUGAR DIAGNOSTIC 1 EACH STRIP IN SCH ×3 (05:16→17:56)
[2020-10-04] MEDS: INSULIN REGULAR, HUMAN 100 UNIT/ML 3 ML VIAL SQ PRN (05:17)
--- NOTE | 2020-10-04 05:25 | NUR ---
BLOOD SUGAR 92, NO INSULIN COVERAGE GIVEN PER ORDER. DR. WATSON MADE AWARE OF BLOOD CULTURE ONE BOTTLE GRAM POSITIVE COCCI IN CLUSTERS WITH NO NEW ORDERS. WILL CONTINUE TO MONITOR.
[2020-10-04 05:52] LABS: BASOPHILS % (AUTO) 0.2 % (0.0-2.0); EOSINOPHILS % (AUTO) 1.1 % (0.0-6.0); HEMATOCRIT 28 % (39-51); HEMOGLOBIN 8.9 g/dL (13.5-17.5); LYMPHOCYTES # (AUTO) 2.5 /CMM (0.8-4.8); MEAN CORPUSCULAR HGB CONC 32 g/dl (31.0-36.0); MEAN CORPUSCULAR VOLUME 85 fL (80-96); MONOCYTES # (AUTO) 1.5 /CMM (0.1-1.30); MONOCYTES % (AUTO) 10.2 % (2.0-12.0); NEUTROPHILS # (AUTO) 10.5 /CMM (1.8-8.9); NEUTROPHILS % (AUTO) 71.5 % (43.0-81.0); PLATELET COUNT (AUTO) 811 /CMM (150-450); RED BLOOD CELL COUNT(AUTO) 3.26 MIL/uL (4.5-6.0); WHITE BLOOD COUNT (AUTO) 14.6 K/uL (4.3-11.0)
[2020-10-04 06:41] LABS: CALCIUM, SERUM 8.9 mg/dL (8.5-10.1); CREATININE 1.3 mg/dL (0.6-1.3); POTASSIUM 4.4 mmol/L (3.5-5.1)
--- NOTE | 2020-10-04 07:30 | NUR ---
RN OPENING NOTE PATIENT RECEIVED RESTING ON LEFT LATERAL SIDE, OBTUNDED, ON MECH VENT, TOLERATING SETTINGS WELL. NO SOB NOTED. G-TUBE PATENT AND INTACT RUNNING JEVITY 1.2 @ 75 ML/HR. IV ACCESS ON EYAL MIDLINE PATENT AND INTACT. JACOBSON CATH IN PLACE, DRAINING YELLOW URINE. SAFETY PRECAUTIONS IMPLEMENTED, BED LOCKED AND IN LOWEST POSITION, SIDE RAILS UP X2, CALL LIGHT WITHIN REACH. WILL CONTINUE MONITOR AND PROVIDE CARE THROUGHOUT SHIFT.
--- NOTE | 2020-10-04 07:40 | NUR ---
RN NOTE PATIENT [facility]. [facility], TOLERATING SETTINGS WELL. NO SOB. G-TUBE PATENT AND INTACT RUNNING JEVITY 1.2 @ 75 ML/HR, NO RESIDUAL NOTED. IV ACCESS ON EYAL MIDLINE PATENT AND INTACT. JACOBSON CATH IN PLACE, DRAINING YELLOW URINE TO GRAVITY OUTPUT OF 700. BED LOCKED AND IN LOWEST POSITION. SAFETY MEASURES IN PLACE. ENDORSED TO AM SHIFT.
[2020-10-04 08:00] VITALS: BP 91/62
--- NOTE | 2020-10-04 08:01 | NUR ---
RT Pt received trached on mechanical ventilation with noted settings. Vent is plugged into red outlet with spare tracheostomy tube by bedside. No SOB or respiratory distress noted. Addendum: 10/04/20 at 1718 by BETY CHAHAL RT Amended: Links added.
[2020-10-04] MEDS: METOPROLOL TARTRATE 25 MG TABLET GT SCH ×2 (09:00→17:00)
[2020-10-04] MEDS: AMLODIPINE BESYLATE 5 MG TABLET GT SCH (09:00)
[2020-10-04] MEDS: ASPIRIN 81 MG TAB.CHEW PO SCH (09:33)
[2020-10-04] MEDS: CHLORHEXIDINE GLUCONATE 15 ML UDC MM SCH (09:33)
[2020-10-04] MEDS: DOCUSATE SODIUM LIQ 100 MG/10 ML UDC GT SCH (09:33)
[2020-10-04] MEDS: FERROUS SULFATE (325 MG) 325 MG/TAB TABLET GT SCH ×2 (09:34→17:49)
[2020-10-04] MEDS: ASCORBIC ACID 500 MG TABLET GT SCH (09:34)
[2020-10-04] MEDS: BACLOFEN (10 MG) 10 MG TABLET GT SCH ×3 (09:34→17:49)
[2020-10-04] MEDS: LEVETIRACETAM SOL (5 ML) 100 MG/ML UDC GT SCH (09:34)
[2020-10-04] MEDS: MULTIVIT W/MINERALS 1 TAB TABLET GT SCH (09:37)
[2020-10-04] MEDS: DAKINS QUARTER STRENGTH (0.125%) 480 ML BOTTLE TOP SCH ×2 (09:38)
[2020-10-04] MEDS: PROSOURCE / PROSTAT (PYXIS) 30 ML UDC GT SCH (09:38)
[2020-10-04] MEDS: ENOXAPARIN SODIUM 40 MG/0.4 ML DISP.SYRIN SQ SCH (09:39)
[2020-10-04 12:00] VITALS: BP 96/63
[2020-10-04] MEDS: JEVITY 1.2 CAL 1,000 ML BOTTLE GT SCH (12:09)
[2020-10-04 16:00] VITALS: BP 118/67
[2020-10-04 17:00] VITALS: BP 116/67
--- NOTE | 2020-10-04 19:24 | NUR ---
patient discharged from hospital in stable condition. paperwork and discharge instructions provided for patient. called and [facility].
== END 2020-10-04 19:25 | DRG 710 ==
LOC: ER 16:04 → TELE1 17:27 → TELE-TD 18:53 → TELE1 09-18 12:28
PROVIDERS: ADMIT Nurse Practitioner Acute Care; ATTEND Nurse Practitioner Acute Care
PROC: 5A1955Z Respiratory Ventilation, Greater than 96 Consecutive Hours (ICD-10-PCS; principal; 2020-09-17)
PROC: 05H933Z Insertion of Infusion Device into Right Brachial Vein, Percutaneous Approach (ICD-10-PCS; 2020-09-23)
PROC: 0QB10ZZ Excision of Sacrum, Open Approach (ICD-10-PCS; 2020-09-27)
DX: A41.50 Gram-negative sepsis, unspecified (principal); J95.851 Ventilator associated pneumonia; E43 Unspecified severe protein-calorie malnutrition; E87.5 Hyperkalemia; E11.22 Type 2 diabetes mellitus with diabetic chronic kidney disease; D69.6 Thrombocytopenia, unspecified; G40.909 Epilepsy, unspecified, not intractable, without status epilepticus; G93.41 Metabolic encephalopathy; I13.10 Hypertensive heart and chronic kidney disease without heart failure, with stage 1 through stage 4 chronic kidney disease, or unspecified chronic kidney disease; J44.0 Chronic obstructive pulmonary disease with (acute) lower respiratory infection; N18.9 Chronic kidney disease, unspecified; N17.0 Acute kidney failure with tubular necrosis; R65.21 Severe sepsis with septic shock; Z93.0 Tracheostomy status; Z93.1 Gastrostomy status; Z99.11 Dependence on respirator [ventilator] status; Z20.822 Contact with and (suspected) exposure to COVID-19; R13.10 Dysphagia, unspecified; K21.9 Gastro-esophageal reflux disease without esophagitis; D61.818 Other pancytopenia; D63.8 Anemia in other chronic diseases classified elsewhere; D68.59 Other primary thrombophilia; D69.59 Other secondary thrombocytopenia; E11.42 Type 2 diabetes mellitus with diabetic polyneuropathy; E11.621 Type 2 diabetes mellitus with foot ulcer; L97.529 Non-pressure chronic ulcer of other part of left foot with unspecified severity; L97.519 Non-pressure chronic ulcer of other part of right foot with unspecified severity; F29 Unspecified psychosis not due to a substance or known physiological condition; F32.9 Major depressive disorder, single episode, unspecified; F41.9 Anxiety disorder, unspecified; E87.2 Acidosis; J15.6 Pneumonia due to other Gram-negative bacteria; Y95 Nosocomial condition; Z87.39 Personal history of other diseases of the musculoskeletal system and connective tissue; Z79.01 Long term (current) use of anticoagulants; Z79.4 Long term (current) use of insulin; Z79.899 Other long term (current) drug therapy; Z79.51 Long term (current) use of inhaled steroids; R53.2 Functional quadriplegia; M62.462 Contracture of muscle, left lower leg; M62.461 Contracture of muscle, right lower leg; M62.422 Contracture of muscle, left upper arm; M62.421 Contracture of muscle, right upper arm; J15.9 Unspecified bacterial pneumonia; J96.10 Chronic respiratory failure, unspecified whether with hypoxia or hypercapnia; L89.154 Pressure ulcer of sacral region, stage 4; M20.42 Other hammer toe(s) (acquired), left foot; M20.41 Other hammer toe(s) (acquired), right foot; E87.0 Hyperosmolality and hypernatremia; E66.01 Morbid (severe) obesity due to excess calories; Z74.09 Other reduced mobility; T14.8XXA Other injury of unspecified body region, initial encounter; X58.XXXA Exposure to other specified factors, initial encounter; Y92.9 Unspecified place or not applicable; E83.52 Hypercalcemia; N40.0 Benign prostatic hyperplasia without lower urinary tract symptoms; Y84.8 Other medical procedures as the cause of abnormal reaction of the patient, or of later complication, without mention of misadventure at the time of the procedure; Y92.129 Unspecified place in nursing home as the place of occurrence of the external cause; N13.9 Obstructive and reflux uropathy, unspecified; M21.6X2 Other acquired deformities of left foot; M21.6X1 Other acquired deformities of right foot; A41.81 Sepsis due to Enterococcus; N13.2 Hydronephrosis with renal and ureteral calculous obstruction; S30.821A Blister (nonthermal) of abdominal wall, initial encounter
CPT/HCPCS: 31720; 36415; 36600; 71045-TC; 76770-TC; 80048-TC; 80053-TC; 80061-TC; 80076-TC; 80202-TC; 81001; 82272-TC; 82550-TC; 82570-TC; 82728-TC; 82784; 82962-TC; 83540-TC; 83605-TC; 83735-TC; 83880; 83970; 84100-TC; 84155; 84155-TC; 84165; 84300-TC; 84443-TC; 84484-TC; 85025-TC; 85378-TC; 85396; 85610-TC; 85730-TC; 86140-TC; 86225; 86235; 86334; 86431-TC; 86803; 87040-TC; 87070-TC; 87081-TC; 87086-TC; 87186-TC; 87340; 87806; 93307-TC; 94002-TC; 94003-TC; 94760-TC; 94761-TC; 94762-TC; 94799-TC; 99082-TC; A4623; A6253; A6403; G0378; J0290; J0878; J1650; J1815; J1953; J2185; J2270; J2543; J3260; J3370; J3475; J3490; J7030; J7042; J7050; J7060; J7070; U0003

== ENCOUNTER 2021-09-09 14:19 | Inpatient (IN) | payer MEDICAID ==
[~2021-09-09] VITALS: Ht 175.3 cm; Wt 66.7 kg
[~2021-09-09 14:19] MED LIST changes: +AMIN887L GT; -CEFE2PIG2 IV; -CHLO118L6 TP; +ENOX40DI SQ; +FAMO20TA8 GT; +HYDR-3972 GT; -HYDR100T27 GT; -LORA-259 GT; +METO25TA6 GT; -TRAM50TA2 PO; -VANC1FRO2 IV
--- NOTE | 2021-09-09 14:19 | NUR ---
TO ER BED 8. BIBRA 78 FROM [facility] C/O WITNESSED SEIZURE STARTED 1PM ON & OFF LAST ABOUT 1 MIN EACH PER REPORT. PT A DIAPHORETIC UPON ARRIVAL TEMP OF 101.5 RECTALLY. PT ATTACHED TO MONITOR. RESPIRATORY AT BEDSIDE. DR GORMAN AT BEDSIDE.
--- NOTE | 2021-09-09 14:27 | NUR ---
BART LI (MOTHER) [phone]
--- NOTE | 2021-09-09 14:36 | NUR ---
IV ESTBLAIHSED R WRIST 20G. CONVERTED TO SALINE LOCK.
--- NOTE | 2021-09-09 14:38 | NUR ---
LAB AT BEDSIDE
--- NOTE | 2021-09-09 14:42 | NUR ---
PT. RECEIVED AND PLACED INTO MECHANICAL VENT VIA TRACH SIZE 7 PORTEX CUFFED. VENT SETTINGS BELOW ORDER: AC 16 VT 450ML FIO2 30% PEEP +5 BREATH SOUNDS CLEAR BILATERAL. VENT PLUGGED INTO RED OUTLET WITH ALARMS ON AND FUNCTIONING. KATIE @ BEDSIDE. Addendum: 09/09/21 at 1445 by BREANNE MAYERS RT Amended: Links added.
[2021-09-09] MEDS ORDERED: ACETAMINOPHEN 650 MG/SUPP.RECT RC ONE ×2 (14:51→15:00)
[2021-09-09] MEDS ORDERED: PIPERACILLIN /TAZOBACTAM 3.375 G VIAL IV ONE ×2 (14:51→21:07)
[2021-09-09] MEDS ORDERED: VALP250S3 GT (14:56)
[2021-09-09] MEDS ORDERED: ZINC220C6 GT (14:56)
[2021-09-09] MEDS ORDERED: SENN-175 GT (14:56)
[2021-09-09] MEDS ORDERED: ATOR10TA GT (14:56)
[2021-09-09] MEDS ORDERED: NUT.237L30 GT (14:57)
[2021-09-09] MEDS: LEVETIRACETAM (500MG) 1,000 MG in IV NS 0.9% 100 ML IV SCH (15:00)
[2021-09-09] MEDS ORDERED: IV NS 0.9% 1,000 ML BAG IV ONE ×2 (15:00)
--- NOTE | 2021-09-09 15:23 | NUR ---
ELANA DELAYED, UNABLE TO GET BLOOD CULTURES.
[2021-09-09] MEDS: PIPERACILLIN /TAZOBACTAM 3.375 G in IV D5W 50 ML IV ONE ×2 (15:29→15:44)
[2021-09-09] MEDS ORDERED: LIDOCAINE 2% JEL UROJET 10 ML MM ONE (16:04)
--- NOTE | 2021-09-09 16:15 | NUR ---
PICC LINE NURSE WILL BE HERE IN 30 MINS.
[2021-09-09 16:41] LABS: BASOPHILS % (AUTO) 0.2 % (0.0-2.0); EOSINOPHILS % (AUTO) 0.2 % (0.0-6.0); HEMATOCRIT 34 % (39-51); HEMOGLOBIN 10.7 g/dL (13.5-17.5); LYMPHOCYTES # (AUTO) 1.6 K/uL (0.8-4.8); LYMPHOCYTES % (AUTO) 8.5 % (20.0-44.0); MEAN CORPUSCULAR HGB CONC 32 g/dl (31.0-36.0); MEAN CORPUSCULAR VOLUME 96 fL (80-96); MONOCYTES # (AUTO) 1.4 K/uL (0.1-1.30); MONOCYTES % (AUTO) 7.5 % (2.0-12.0); NEUTROPHILS # (AUTO) 16.1 K/uL (1.8-8.9); NEUTROPHILS % (AUTO) 83.6 % (43.0-81.0); PLATELET COUNT (AUTO) 302 K/uL (150-450); RED BLOOD CELL COUNT(AUTO) 3.54 MIL/uL (4.5-6.0); WHITE BLOOD COUNT (AUTO) 19.2 K/uL (4.3-11.0)
--- NOTE | 2021-09-09 16:41 | NUR ---
URINE COLLECTED AND SENT
--- NOTE | 2021-09-09 16:55 | NUR ---
PICC LINE INSERTED R UPPER ARM
[2021-09-09 16:58] LABS: BILIRUBIN,URINE NEGATIVE (NEGATIVE); COLOR,URINE YELLOW (YELLOW); LEUKOCYTE ESTERASE ,URINE MODERATE (NEGATIVE); NITRITE, URINE POSITIVE (NEGATIVE); PROTEIN,URINE 30 mg/dl (NEGATIVE); UGLUCOSE NEGATIVE (NEGATIVE); UROBILINOGEN,URINE 0.2 EU/dL (0.2)
[2021-09-09 16:59] LABS: CALCIUM, SERUM 9.4 mg/dL (8.5-10.1); CARBON DIOXIDE 27 mmol/L (21-32); CHLORIDE 110 mmol/L (98-107); CREATININE 1.4 mg/dL (0.6-1.3); GLUCOSE 91 mg/dL (74-106); POTASSIUM 3.8 mmol/L (3.5-5.1); SODIUM SERUM 148 mmol/L (136-145); UREA NITROGEN, BLOOD 42 mg/dL (7-18)
[2021-09-09 17:08] LABS: BACTERIA,URINE 1+ /HPF (None Seen); COARSE GRANULAR CASTS,URINE 0-2 /LPF (None Seen); RBC,URINE TOO NUMEROUS TO COUN /HPF (0-2); SQUAMOUS EPITHELIAL CELL,UR Few /HPF (None Seen); WBC,URINE 51-80 /HPF (0-3)
[2021-09-09 17:09] LABS: ALANINE AMINOTRANSFERASE 27 U/L (12-78); ALBUMIN 2.5 g/dL (3.4-5.0); ALKALINE PHOSPHATASE 92 U/L (46-116); ASPARTATE AMINOTRANSFERASE 28 U/L (15-37); BILIRUBIN,DIRECT 0.1 mg/dL (0.0-0.2); BILIRUBIN,TOTAL 0.3 mg/dL (0.2-1.0)
--- NOTE | 2021-09-09 17:20 | NUR ---
BART LI MOTHER CALLED AND ASKED FOR UPDATE
--- NOTE | 2021-09-09 17:36 | NUR ---
TEMP TAKEN RECTALLY 97.8
--- NOTE | 2021-09-09 18:07 | NUR ---
COVID TEST COLLECTED AND SENT
--- NOTE | 2021-09-09 18:25 | NUR ---
MOVE SHEET SUBMITTED AND CALLED FOR [facility] BED.
--- NOTE | 2021-09-09 18:28 | NUR ---
[facility] CALLED FEED CRUSHER OPERATOR PAGED.
--- NOTE | 2021-09-09 18:29 | NUR ---
GOT BED 115 > CHANGE OF SHIFT.
--- NOTE | 2021-09-09 19:04 | NUR ---
ATTEMPTED TO GIVE REPORT, WAS TOLD TO CALL BACK IN 15 MINUTES
[2021-09-09] MEDS ORDERED: Z GUARD REMEDY 4 OZ OINT TP PRN (19:30)
[2021-09-09] MEDS ORDERED: MAGNESIUM HYDROXIDE 30 ML UDC PO PRN (19:30)
[2021-09-09] MEDS ORDERED: ACETAMINOPHEN ES 500 MG TABLET GT PRN (19:30)
[2021-09-09] MEDS ORDERED: DEXTROSE 50%-WATER 50 ML DISP.SYRIN IV PRN (19:30)
[2021-09-09] MEDS ORDERED: MAGNESIUM HYDROXIDE 30 ML UDC GT PRN (19:30)
[2021-09-09] MEDS ORDERED: BISACODYL SUPP (10 MG) 10 MG/SUPP.RECT SUPP.RECT RC PRN (19:30)
[2021-09-09] MEDS ORDERED: ONDANSETRON HCL/PF 4 MG/2 ML VIAL IVP PRN (19:30)
[2021-09-09] MEDS ORDERED: NA PHOS,M-B/NA PHOS,DI-BA 1 EA ENEMA RC PRN (19:30)
[2021-09-09] MEDS ORDERED: MAG HYDROX/AL HYDROX/SIMETH 30 ML UDC GT PRN (19:30)
[2021-09-09] MEDS ORDERED: IV NS 0.9% 1,000 ML IV PRN (19:30)
--- NOTE | 2021-09-09 19:30 | NUR ---
ATTEMPTED TO GIVE REPORT, TOLD TO CALL BACK.
--- NOTE | 2021-09-09 19:45 | NUR ---
RN NOTES RECEIVED ER ADMISSION REPORT FROM CARLEE HENDERSON. ALL PERTINENT ADMISSION INFO REGARDING PT NOTED. WILL WAIT FOR PT TO BE TRANSFERRED TO UNIT AND ADDRESS NEEDS ACCORDINGLY. CRANE FOLLOWER MADE AWARE.
--- NOTE | 2021-09-09 19:50 | NUR ---
REPORT GIVEN TO TIFFANY FOR JENNY, PT BED WILL BE READY IN 30 MINUTES
--- NOTE | 2021-09-09 20:10 | NUR ---
RN NOTES RECEIVED PT FROM ER VIA [facility] ACCOMPANIED BY 2 ER STAFF AND TRANSFERRED TO BED VIA 2 PERSON ASSIST. PT IS A/OX0; NON VERBAL; PT ON MECHANICAL VENT; SETTINGS PRESCRIBED WITH RESPIRATIONS EVEN AND UNLABORED. COMPREHENSIVE PHYSICAL ASSESSMENT AND PATIENT CARE DONE. CALL LIGHT WITHIN REACH, SAFETY MEASURES AND ISOLATION PRECAUTION IN PLACE, WILL CONTINUE MONITOR AND ASSESS THROUGHOUT THE SHIFT. WILL CARRY OUT MD ORDERS ACCORDINGLY. LINING STAMPER MADE AWARE.
--- NOTE | 2021-09-09 20:24 | NUR ---
PT TRANSPORTED TO ROOM 115 ON LASER PRINT OPERATOR PER ACLS PROTOCOL. ALL V/S STABLE AT TIME OF TRANSFER.
[2021-09-09 20:42] VITALS: BP 119/75
[2021-09-09] MEDS: CHLORHEXIDINE GLUCONATE 15 ML UDC MM SCH (21:04)
[2021-09-09] MEDS: VALPROIC ACID 250 MG/5 ML UDC GT SCH (21:04)
[2021-09-09] MEDS: ATORVASTATIN 10 MG TABLET GT SCH (21:17)
[2021-09-09] MEDS: ZOSYN IVPB 3.375 G in IV D5W 50ml IV SCH (21:17)
[2021-09-09] MEDS: FAMOTIDINE (20 MG) 20 MG TABLET GT SCH (21:17)
[2021-09-09] MEDS: SENNOSIDES 8.6 MG TABLET GT SCH (21:17)
[2021-09-09] MEDS: HYDROCODONE/APAP 5/325MG TABLET GT PRN (21:56)
[2021-09-09] MEDS: BLOOD SUGAR DIAGNOSTIC 1 EACH STRIP VI SCH (22:08)
[2021-09-09] MEDS: *INSULIN REGULAR(HUMULIN R)HUM 100 UNIT/ML VIAL SQ PRN (22:08)
[2021-09-09] MEDS ORDERED: GLUCERNA 1.2 1,000 ML BOTTLE PEG PRN (23:00)
[2021-09-10] VITALS (21 sets, daily range): BP systolic 102–133; BP diastolic 50–81
[2021-09-10] MEDS ORDERED: ZOSYN IVPB 3.375 G in IV D5W 50ml IV SCH ×2
--- NOTE | 2021-09-10 | NUR ---
RN NOTES PATIENT REMAINED TO BE IN NO SIGNS OF ACUTE RESPIRATORY DISTRESS , VITAL SIGNS STABLE AT THIS TIME. REGULAR TURNING AND REPOSITIONING DONE Q2H AND SUCTIONING RENDERED. WILL CONTINUE TO MONITOR AND REASSESS FOR ANY CHANGES THROUGHOUT THE SHIFT.
[2021-09-10] MEDS: GLUCERNA 1.2 1,000 ML BOTTLE NG PRN (00:57)
[2021-09-10] MEDS ORDERED: PIPERACILLIN /TAZOBACTAM 3.375 G VIAL IV ONE (03:13)
[2021-09-10] MEDS ORDERED: LEVETIRACETAM (500MG) 500 MG/5 ML VIAL IV ONE (03:14)
[2021-09-10] MEDS: LEVETIRACETAM (500MG) 1,000 MG in IV NS 0.9% 100 ML IV SCH (03:22)
[2021-09-10] MEDS: ZOSYN IVPB 3.375 G in IV D5W 50ml IV SCH ×4 (04:05→23:36)
[2021-09-10] MEDS: HYDROCODONE/APAP 5/325MG TABLET GT PRN (06:08)
[2021-09-10 06:29] LABS: BASOPHILS # (AUTO) 0.1 K/uL (0.0-0.2); BASOPHILS % (AUTO) 0.5 % (0.0-2.0); EOSINOPHILS % (AUTO) 0.5 % (0.0-6.0); HEMATOCRIT 35 % (39-51); HEMOGLOBIN 11.1 g/dL (13.5-17.5); LYMPHOCYTES # (AUTO) 3.6 K/uL (0.8-4.8); LYMPHOCYTES % (AUTO) 18.6 % (20.0-44.0); MEAN CORPUSCULAR HGB CONC 32 g/dl (31.0-36.0); MEAN CORPUSCULAR VOLUME 95 fL (80-96); MONOCYTES # (AUTO) 1.4 K/uL (0.1-1.30); MONOCYTES % (AUTO) 7.4 % (2.0-12.0); PLATELET COUNT (AUTO) 299 K/uL (150-450); RED BLOOD CELL COUNT(AUTO) 3.67 MIL/uL (4.5-6.0); WHITE BLOOD COUNT (AUTO) 19.2 K/uL (4.3-11.0)
--- NOTE | 2021-09-10 06:46 | NUR ---
RN CLOSING NOTE: PATIENT REMAINS IN ROOM IN NO SIGNS OF RESPIRATORY DISTRESS, PATIENT STILL ON MECH VENT; SETTINGS PRESCRIBED;TOLERATING WELL SATURATING @ >95% SP02. SAFETY MEASURES IMPLEMENTED, BED IN LOWEST POSITION, LOCKED, SIDE RAILS UP, CALL LIGHT WITHIN REACH. ALL NEEDS AND ORDERS ADDRESSED DURING THE SHIFT. IV ACCESS MAINTAINED INTACT, SECURED AND FLUSHING WELL. ALL DUE MEDS GIVEN ORDERED & SCHEDULED ; PATIENT TOLERATED WELL. PATIENT KEPT CLEAN AND COMFORTABLE WITHIN THE SHIFT. PATIENT ENDORSED TO INCOMING SHIFT RN WITH STABLE VITAL SIGN AND FOR CONTINUITY OF CARE.
[2021-09-10 06:57] LABS: CALCIUM, SERUM 9.5 mg/dL (8.5-10.1); CREATININE 1.4 mg/dL (0.6-1.3); MAGNESIUM 2.7 mg/dL (1.8-2.4); PHOSPHORUS 4.7 mg/dL (2.5-4.9); POTASSIUM 4.6 mmol/L (3.5-5.1)
--- NOTE | 2021-09-10 07:30 | NUR ---
TD RN AM NOTES PT IN BED, OBTUNDED, WITH POTEX 7 TRACH TO MECHANICAL VENT SETTING AC 16 TV 450 FIO2 30 PEEP 5, BREATHING EVEN AND UNLABORED. SATTING 98%. IV ACCESS ON RT WRIST AND RT AC. WITH NS AT 75 ML/HR RUNNING. SITE CLEAR. ONGOING GTF CLUCERNA 1.2 ONGOING AT 50 ML. GOAL 75 ML. CHECKED FOR PLACEMENT. O RESIDUAL. WEARS DIAPERS. WILL ENSURE SAFETY MEASURES WITHIN THE SHIFT. PATIENT BED ALARM IS ON. HEAD OF BED ELEVATED. BED IS LOCKED, IN LOWEST POSITION AND SIDE RAILS UP. CALL LIGHT WITHIN REACH OF THE PATIENT. APPLICABLE ISOLATION PRECAUTIONS IN PLACE. WILL CONTINUE TO MONITOR AND REASSESS FOR ANY CHANGES AND WILL CARRY OUT ANY ONGOING AND ACTIVE MD ORDER. WILL CONT TO MONITOR. FOR WOUND CONSULT.
[2021-09-10] MEDS: BLOOD SUGAR DIAGNOSTIC 1 EACH STRIP VI SCH ×4 (07:58→21:24)
[2021-09-10] MEDS ORDERED: DOCUSATE SODIUM 100 MG CAPSULE PO SCH (09:00)
[2021-09-10] MEDS ORDERED: PROSTAT (PYXIS) 30 ML UDC GT SCH (09:00)
[2021-09-10] MEDS ORDERED: Medication Not On Formulary EA (Levetiracetam (Keppra) 500 MG) GT SCH (09:00)
[2021-09-10] MEDS: BACLOFEN (10 MG) 10 MG TABLET GT SCH ×3 (09:58→16:20)
[2021-09-10] MEDS: ZINC SULFATE 220 MG CAPSULE GT SCH (09:58)
[2021-09-10] MEDS: MULTIVIT W/MINERALS 1 TAB TABLET GT SCH (09:58)
[2021-09-10] MEDS: VALPROIC ACID 250 MG/5 ML UDC GT SCH ×2 (09:58→20:34)
[2021-09-10] MEDS: CHLORHEXIDINE GLUCONATE 15 ML UDC MM SCH ×2 (09:58→20:34)
[2021-09-10] MEDS: FERROUS SULFATE (325 MG) 325 MG/TAB TABLET GT SCH (09:58)
[2021-09-10] MEDS: ASCORBIC ACID 500 MG TABLET GT SCH (09:58)
[2021-09-10] MEDS: AMLODIPINE BESYLATE 5 MG TABLET GT SCH (09:59)
[2021-09-10] MEDS: METOPROLOL TARTRATE 25 MG TABLET GT SCH ×2 (09:59→16:20)
[2021-09-10] MEDS: ENOXAPARIN SODIUM 40 MG/0.4 ML DISP.SYRIN SQ SCH (10:03)
[2021-09-10] MEDS ORDERED: LORAZEPAM INJ 2 MG/ML VIAL IV PRN ×2 (11:00→16:00)
[2021-09-10] MEDS: LEVETIRACETAM SOL (5 ML) 100 MG/ML UDC GT SCH ×2 (11:16→20:34)
[2021-09-10] MEDS: IV 1/2NS 1000 ML 1,000 ML IV SCH ×2 (11:17→19:39)
[2021-09-10] MEDS: DOCUSATE SODIUM LIQ 100 MG/10 ML UDC NG SCH (11:17)
[2021-09-10] MEDS ORDERED: LEVETIRACETAM (500MG) 1,000 MG in IV NS 0.9% 100 ML IV SCH (15:00)
--- NOTE | 2021-09-10 15:00 | NUR ---
RN NOTE PATIENT HAVING SEIZURES. ATIVAN GIVEN AT 11AM. PATIENT SEIZING AGAIN. 1MG PRN ORDER EVERY SIX HOURS. PER MD REPEAT DOSE GIVEN. CHANGED ORDER TO 2MG ATIVAN EVERY HOUR.
--- NOTE | 2021-09-10 15:39 | NUR ---
RN NOTE PATIENT CONTINUED TO HAVE SEIZURES AND PROFUSELY SWEATING. VITALS CHECKED. ELEVATED HR AND B/P. TEMP 99.3 F. TRANSFERRED PATIENT TO ICU ROOM 256. REPORT GIVEN TO PRATIMA FOR JENNY.
--- NOTE | 2021-09-10 15:42 | NUR ---
RN NOTES RECEIVED PT FROM ROOM 115 IN ROOM 256 ICU BED DUE TO HAVING SZ ACTIVITIES , PT IS VENT/ TRACH DEPENDENT , O2 SAT WNL, ON TELE ST HR IN 160'S, T=100.1 AXILLARY , GT AT 50 CC/HR RUNNING , NO RESIDUAL NOTED, LEFT UPPER ARM MIDLINE INTACT, IVF RUNNING AT 100CC/HR , SR UP x3, CALL LIGHT WITHIN EASY REACH, BED LOCKED AND IN LOWEST POSITION, SZ PRECAUTION MEASURES IN PLACED , SR UP x3, CALL LIGHT WITHIN EASY REACH, BED LOCKED AND IN LOWEST POSITION, CONTINUE TO MONITOR .
[2021-09-10] MEDS: ACETAMINOPHEN 325 MG TABLET PO PRN (16:20)
[2021-09-10] MEDS: LORAZEPAM INJ 2 MG/ML VIAL IV PRN (16:25)
--- NOTE | 2021-09-10 18:21 | NUR ---
RN NOTES NO SEIZURE ACTIVITIES NOTED , TOLERAING VENT SETTING WELL , WILL ENDORSE TO MANAGER ENGINE NURSE FOR CONTINUITY OF CARE .
--- NOTE | 2021-09-10 19:05 | NUR ---
RECEIVED PT ON BED OBTUNDED ON TRACH/VENT SETTING PER MD NO SIGN OF RESPIRATORY DISTRESS, SPO2 100% TELE MONITOR READS SINUS RHYTHM 80'S, PT IS CONTRACTED ON BUE, HAVE EYAL ML WITH ONGOING 1/2 NS @ 100ML/HR INFUSING WELL, PT HAVE GTUBE ON PLACE WITH RUNNING GLUCERNA @ 50ML/HR 10ML RESIDUAL NOTED, BED ON LOWEST POSITION AND LOCKED SIDE RAILS UP, SEIZURE PRECAUTION ON PLACE WILL CONT TO MONITOR THE PT
--- NOTE | 2021-09-10 20:45 | NUR ---
RECEIVED CALL FROM DR MATTHEWS AND ASK FOR UPDATE OF THE PT, I MADE HIM AWARE THAT PT WAS HAVING A SEIZURE WHEN THEY TRANSFER HIM HERE IN ICU, HE MADE AN ORDER TO GIVE ANOTHER KEPPRA 500 MG GTUBE X1 NOW AND CHANGE THE SCHEDULED KEPPRA TO 1500 MG GTUBE Q12H NOTED AND CARRIED OUT
[2021-09-10] MEDS ORDERED: LEVETIRACETAM SOL (5 ML) 100 MG/ML UDC GT ONE (21:00)
[2021-09-10] MEDS: ATORVASTATIN 10 MG TABLET GT SCH (21:11)
[2021-09-10] MEDS: SENNOSIDES 8.6 MG TABLET GT SCH (21:12)
[2021-09-10] MEDS: FAMOTIDINE (20 MG) 20 MG TABLET GT SCH (21:12)
[2021-09-10] MEDS: *INSULIN REGULAR(HUMULIN R)HUM 100 UNIT/ML VIAL SQ PRN (21:24)
[2021-09-11] VITALS (49 sets, daily range): BP systolic 99–191; BP diastolic 62–151
[2021-09-11] MEDS: LORAZEPAM INJ 2 MG/ML VIAL IV PRN ×5 (03:12→23:34)
[2021-09-11] MEDS: GLUCERNA 1.2 1,000 ML BOTTLE NG PRN ×2 (03:16→18:13)
--- NOTE | 2021-09-11 03:22 | NUR ---
SEIZURE NOTED MANIFESTED BY HIGH HEART RATE 140'S AND RESP RATE 44 AND SHAKING PRN ATIVAN GIVEN ORDERED
[2021-09-11 04:14] LABS: BASOPHILS % (AUTO) 0.3 % (0.0-2.0); EOSINOPHILS % (AUTO) 1.1 % (0.0-6.0); HEMATOCRIT 34 % (39-51); HEMOGLOBIN 10.8 g/dL (13.5-17.5); LYMPHOCYTES # (AUTO) 5.8 K/uL (0.8-4.8); MEAN CORPUSCULAR HGB CONC 32 g/dl (31.0-36.0); MEAN CORPUSCULAR VOLUME 97 fL (80-96); MONOCYTES % (AUTO) 7.2 % (2.0-12.0); NEUTROPHILS # (AUTO) 7.5 K/uL (1.8-8.9); NEUTROPHILS % (AUTO) 51.4 % (43.0-81.0); PLATELET COUNT (AUTO) 277 K/uL (150-450); RED BLOOD CELL COUNT(AUTO) 3.56 MIL/uL (4.5-6.0); WHITE BLOOD COUNT (AUTO) 14.6 K/uL (4.3-11.0)
[2021-09-11 04:27] LABS: CALCIUM, SERUM 9.1 mg/dL (8.5-10.1); CREATININE 1.3 mg/dL (0.6-1.3); MAGNESIUM 2.1 mg/dL (1.8-2.4); POTASSIUM 3.9 mmol/L (3.5-5.1)
[2021-09-11] MEDS: IV 1/2NS 1000 ML 1,000 ML IV SCH ×2 (05:09→15:51)
[2021-09-11] MEDS: ZOSYN IVPB 3.375 G in IV D5W 50ml IV SCH (05:22)
--- NOTE | 2021-09-11 07:00 | NUR ---
RN NOTES RECEIVED PT ON BED OBTUNDED ,TRACH/VENT DEPENDENT , TOLERAING VENT SETTING WELL, NO SIGN OF RESPIRATORY DISTRESS NOTED , SPO2 100% TELE MONITOR READS SINUS RHYTHM 70'S, PT IS CONTRACTED ON BUE, HAVE EYAL ML WITH ONGOING 1/2 NS @ 100ML/HR INFUSING WELL, PT HAVE G TUBE IN PLACE WITH RUNNING GLUCERNA @ 50ML/HR 5ML RESIDUAL NOTED, BED ON LOWEST POSITION AND LOCKED SIDE RAILS UP, SEIZURE PRECAUTION IN PLACE, WILL CONT TO MONITOR .
[2021-09-11] MEDS: BLOOD SUGAR DIAGNOSTIC 1 EACH STRIP VI SCH ×4 (07:42→21:42)
--- NOTE | 2021-09-11 08:03 | NUR ---
RN NOTES HEAD TO TOE GENERALIZED SHAKING NOTED . PT SWEATING OUT , SBP 130'S, HR IN 110. CONTINUE TO GIVE ATIVAN PER MD ORDER .
[2021-09-11] MEDS: VALPROIC ACID 250 MG/5 ML UDC GT SCH ×2 (08:13→21:41)
[2021-09-11] MEDS: LEVETIRACETAM SOL (5 ML) 100 MG/ML UDC GT SCH ×2 (08:14→21:41)
[2021-09-11] MEDS: DOCUSATE SODIUM LIQ 100 MG/10 ML UDC NG SCH (08:14)
[2021-09-11] MEDS: CHLORHEXIDINE GLUCONATE 15 ML UDC MM SCH ×2 (08:14→21:41)
[2021-09-11] MEDS: ASCORBIC ACID 500 MG TABLET GT SCH (08:14)
[2021-09-11] MEDS: FERROUS SULFATE (325 MG) 325 MG/TAB TABLET GT SCH (08:16)
[2021-09-11] MEDS: METOPROLOL TARTRATE 25 MG TABLET GT SCH ×2 (08:16→16:32)
[2021-09-11] MEDS: ZINC SULFATE 220 MG CAPSULE GT SCH (08:16)
[2021-09-11] MEDS: BACLOFEN (10 MG) 10 MG TABLET GT SCH ×3 (08:17→16:31)
[2021-09-11] MEDS: AMLODIPINE BESYLATE 5 MG TABLET GT SCH (08:17)
[2021-09-11] MEDS: ENOXAPARIN SODIUM 40 MG/0.4 ML DISP.SYRIN SQ SCH (08:18)
[2021-09-11] MEDS: MULTIVIT W/MINERALS 1 TAB TABLET GT SCH (08:20)
[2021-09-11] MEDS: PROSOURCE / PROSTAT (PYXIS) 30 ML UDC GT SCH (08:46)
--- NOTE | 2021-09-11 08:56 | NUR ---
WOUND CARE CONSULT: PT PRESENTS WITH SACRAL STAGE 4ULCER AND DISCOLORATION/SCARRING AND INTACT BLISTERS TO LOWER EXTREMITIES, PRESENT ON ADMISSION. SURGICAL AND DPM CONSULTS CALLED TO DR GALAVIZ AND DR FAM. RECOMMENDATIONS MADE FOR SKIN PROTECTION. DISCUSSED WITH NURSING STAFF. PT IS ON [facility] BED. IN AGREEMENT WITH PLAN OF CARE. Addendum: 09/11/21 at 0857 by BLANCA ORTEGA WNDNU Amended: Links added.
--- NOTE | 2021-09-11 09:00 | NUR ---
RN NOTES GENERALIZED SHAKING NOTED, PT IS SWEATING OUT , HEAD TO TOE, HR IN 160'S , T =99.5 AXILLARY . ATIVAN 2M IV GIVEN .CONTINUE TO MONITOR .
[2021-09-11] MEDS: HYDROCODONE/APAP 5/325MG TABLET GT PRN (16:32)
--- NOTE | 2021-09-11 16:35 | NUR ---
RN NOTES: ORAL CARE RENDERED.
--- NOTE | 2021-09-11 17:00 | NUR ---
RN NOTES SEVERAL SEIZURE ACTIVITIES NOTED NOTED MANIFESTED BY HIGH HEART AND BP AND TACHYPNEA RESP RATE UP TO 44 AND GENERALIZED SHAKING , DR MATTHEWS NOTIFIED ,ATIVAN GIVEN NEEDED.
--- NOTE | 2021-09-11 18:09 | NUR ---
RN NOTES PT HAVING EEG DONE AT THIS TIME, TRACH CARE DONE PRN ON THIS SHIFT, TF AT 75CC/HR RUNNING , NO RESIDUAL NOTED . IVF AT100 CC/HR RUNNING , SR UP x3, CALL LIGHT WITHIN EASY REACH, BED LOCKED AND IN LOWEST POSITION . WILL ENDORSE TO BUSINESS SERVICES SALES REPRESENTATIVE FOR CONTINUITY OF CARE.
--- NOTE | 2021-09-11 19:40 | NUR ---
RN NOTE PATIENT OBTUNDED IN BED, TRACH TO VENT. TOLERATING SETTINGS WELL. O2 SAT WNL. PATIENT WITH G-TUBE, GLUCERNA @ 75ML/HR., NO RESIDUAL NOTED. HEAD OF THE BED KEPT ELEVATED. IV ACCESS ON EYAL MIDLINE INFUSING 1/2 NS @ 100ML/HR. BED LOCKED AND IN LOWEST POSITION. CALL LIGHT WITHIN REACH. ALL NEEDS ANTICIPATED.
[2021-09-11] MEDS: ATORVASTATIN 10 MG TABLET GT SCH (21:42)
[2021-09-11] MEDS: FAMOTIDINE (20 MG) 20 MG TABLET GT SCH (21:42)
[2021-09-11] MEDS: PIPERACILLIN /TAZOBACTAM 3.375 G in IV D5W 100 ML IV SCH (21:42)
[2021-09-11] MEDS: SENNOSIDES 8.6 MG TABLET GT SCH (21:42)
[2021-09-11] MEDS: THERAHONEY GEL 1.5 OZ TUBE TP SCH (23:00)
--- NOTE | 2021-09-11 23:38 | NUR ---
RN NOTE SEIZURE NOTED MANIFESTED BY HIGH HEART RATE 130'S AND RESP RATE 30'S, ELEVATED BLOOD PRESSURE 188/100 AND SHAKING PRN ATIVAN GIVEN ORDERED.
[2021-09-12] VITALS (22 sets, daily range): BP systolic 105–156; BP diastolic 44–112
[2021-09-12] MEDS: IV 1/2NS 1000 ML 1,000 ML IV SCH ×3 (01:13→21:08)
[2021-09-12] MEDS: HYDROCODONE/APAP 5/325MG TABLET GT PRN (02:11)
[2021-09-12] MEDS: PIPERACILLIN /TAZOBACTAM 3.375 G in IV D5W 100 ML IV SCH ×3 (04:48→21:08)
--- NOTE | 2021-09-12 06:36 | NUR ---
RN NOTE PATIENT OBTUNDED IN BED, TRACH TO VENT. TOLERATING SETTINGS WELL. O2 SAT 100%. PATIENT WITH G-TUBE, GLUCERNA @ 75ML/HR TOLERATING WELL AND NO RESIDUAL NOTED. HEAD OF THE BED KEPT ELEVATED. IV ACCESS ON EYAL MIDLINE INFUSING 1/2 NS @ 100ML/HR. HAD X1BM, KEPT CLEAN AND DRY. ORAL CARE RENDERED. BED LOCKED AND IN LOWEST POSITION. CALL LIGHT WITHIN REACH. WILL ENDORSE TO AM SHIFT.
[2021-09-12] MEDS: ENOXAPARIN SODIUM 40 MG/0.4 ML DISP.SYRIN SQ SCH (09:13)
[2021-09-12] MEDS: DOCUSATE SODIUM LIQ 100 MG/10 ML UDC NG SCH (09:13)
[2021-09-12] MEDS: CHLORHEXIDINE GLUCONATE 15 ML UDC MM SCH ×2 (09:13→21:06)
[2021-09-12] MEDS: LEVETIRACETAM SOL (5 ML) 100 MG/ML UDC GT SCH ×2 (09:13→21:06)
[2021-09-12] MEDS: AMLODIPINE BESYLATE 5 MG TABLET GT SCH (09:14)
[2021-09-12] MEDS: FERROUS SULFATE (325 MG) 325 MG/TAB TABLET GT SCH (09:14)
[2021-09-12] MEDS: MULTIVIT W/MINERALS 1 TAB TABLET GT SCH (09:14)
[2021-09-12] MEDS: METOPROLOL TARTRATE 25 MG TABLET GT SCH ×2 (09:14→16:26)
[2021-09-12] MEDS: ASCORBIC ACID 500 MG TABLET GT SCH (09:14)
[2021-09-12] MEDS: BACLOFEN (10 MG) 10 MG TABLET GT SCH ×3 (09:14→16:26)
[2021-09-12] MEDS: BLOOD SUGAR DIAGNOSTIC 1 EACH STRIP VI SCH ×4 (09:17→22:11)
[2021-09-12] MEDS: ZINC SULFATE 220 MG CAPSULE GT SCH (09:17)
[2021-09-12] MEDS: VALPROIC ACID 250 MG/5 ML UDC GT SCH ×2 (09:17→21:07)
[2021-09-12] MEDS: PROSOURCE / PROSTAT (PYXIS) 30 ML UDC GT SCH (09:19)
[2021-09-12] MEDS: THERAHONEY GEL 1.5 OZ TUBE TP SCH (09:20)
[2021-09-12] MEDS: INSULIN REGULAR, HUMAN 100 UNIT/ML 3 ML VIAL SQ PRN ×2 (11:44→16:39)
[2021-09-12] MEDS: LORAZEPAM INJ 2 MG/ML VIAL IV PRN ×2 (16:44→19:44)
--- NOTE | 2021-09-12 17:06 | NUR ---
INSIDE UPHOLSTERER DR MATTHEWS HERE TO SEE PT. STATED OK TO DOWNGRADE. WILL TRANSFER TO TELE.
--- NOTE | 2021-09-12 17:54 | NUR ---
RN NOTES SPOKE WITH MOTHER OF PT, BART. SHE HAS REFUSED THE SERIAL DEBRIDEMENT OF SACRUM. NO CONSENT.
--- NOTE | 2021-09-12 18:26 | NUR ---
RN NOTES GAVE REPORT TO CHARGE TERRANCE IN [facility].
--- NOTE | 2021-09-12 19:25 | NUR ---
RN NOTE PT RECEIVED FROM ICU. PT IS TRACH/VENT WITH SETTINGS AT AC:30, TV: 450, FIO2: 30%, AND PEEP OF 5. PT IS OBTUNDED/NON-VERBAL. ON HARNESS PULLER SHOWING ST, AND TACHYPNEIC. RR FLUCTUATES FROM 20'S-40'S PER ENDORSEMENT. G-TUBE INTACT, PATENT, RUNNING GLUCERNA 1.2 @ 75 CC/HR. IV ACCESS NOTED ON RIGHT UPPER ARM ML INFUSING 1/2 NS AT 100CC/HR. ALL SAFETY MEASURES IMPLEMENTED. SEIZURE PRECAUTIONS IN PLACE. HOB ELEVATED. BED ALARM ON. BED LOCKED AND IN LOWEST POSITION. SIDE RAILS UP. WILL CONTINUE TO MONITOR AND ASSESS FOR ANY CHANGES DURING SHIFT.
[2021-09-12] MEDS: ATORVASTATIN 10 MG TABLET GT SCH (21:07)
[2021-09-12] MEDS: SENNOSIDES 8.6 MG TABLET GT SCH (21:07)
[2021-09-12] MEDS: FAMOTIDINE (20 MG) 20 MG TABLET GT SCH (21:07)
[2021-09-12] MEDS: *INSULIN REGULAR(HUMULIN R)HUM 100 UNIT/ML VIAL SQ PRN (22:12)
--- NOTE | 2021-09-12 23:26 | NUR ---
RN NOTE PT RESTING COMFORTABLY. NO S/SX OF DISTRESS. CURRENT HR 76 AND RR 16-20. WILL CONTINUE TO MONITOR.
[2021-09-13] VITALS: BP 129/56
[2021-09-13] MEDS: LORAZEPAM INJ 2 MG/ML VIAL IV PRN ×2 (01:58→18:25)
--- NOTE | 2021-09-13 02:29 | NUR ---
RN NOTE SPOKE WITH DR. LEUNG REGARDING PATIENT BEING VERY DIAPHORETIC, TACHYCARDIC UP TO 150'S, AND TACHYPNEIC BETWEEN 38-42 AND HOW PT GOES THROUGH PHASES OF BEING SR IN 80'S, AND HAVING NON-LABORED BREATHING WITH RR 16-24. DR. LEUNG ORDERED MORPHINE 2MG Q4H PRN, STAT CHEST X-RAY, AND ABG. ORDER NOTED AND CARRIED OUT. WILL CONTINUE TO MONITOR PT.
[2021-09-13] MEDS: MORPHINE SULFATE INJ 2 MG/ML DISP.SYRIN IV PRN ×3 (02:51→18:40)
[2021-09-13 03:02] LABS: ABG BASE EXCESS 1.1 mmol/L; ABG OXYGEN SATURATION 97.1 % (92.0-98.5); ABG PCO2 35.9 mmHg (35.0-45.0); ABG PH 7.455 (7.350-7.450); ABG PO2 90.7 mmHg (75.0-100.0); COHb 0.6 % (0.5-1.5); MetHb 0.2 % (0.0-1.5); O2Hb 96.3 % (94.0-97.0); SITE, ABG Right Radial
--- NOTE | 2021-09-13 03:02 | NUR ---
RN NOTE AFTER ADMINISTRATION OF MORPHINE PER DR. LEUNG ORDERS, PT HR NOW 108 AND RR 20. WILL CONTINUE TO MONITOR FOR ANY CHANGES. CHEST X-RAY AND ABG RESULTS PENDING.
--- NOTE | 2021-09-13 03:05 | NUR ---
RN NOTE SPOKE WITH DR. LEUNG REGARDING PT ABG RESULTS. DR. LEUNG STATED NO NEW ORDERS. CURRENT HR 95, RR 16. WILL CONTINUE TO MONITOR.
[2021-09-13 04:00] VITALS: BP 118/70
[2021-09-13] MEDS: PIPERACILLIN /TAZOBACTAM 3.375 G in IV D5W 100 ML IV SCH (05:57)
--- NOTE | 2021-09-13 06:37 | NUR ---
RN NOTE PT IS TRACH/VENT WITH SETTINGS AT AC:30, TV: 450, FIO2: 30%, AND PEEP OF 5. PT IS OBTUNDED/NON-VERBAL. PT NOW MUCH MORE RELAXED/COMFORTABLE WITH HR NSR AND RR WNL. G-TUBE INTACT, PATENT, RUNNING GLUCERNA 1.2 @ 75 CC/HR. IV ACCESS NOTED ON RIGHT UPPER ARM ML INFUSING 1/2 NS AT 100CC/HR. ALL SAFETY MEASURES IMPLEMENTED. PT KEPT CLEAN AND COMFORTABLE. ALL DUE MEDS GIVEN ORDERED. SEIZURE PRECAUTIONS IN PLACE. HOB ELEVATED. BED ALARM ON. BED LOCKED AND IN LOWEST POSITION. SIDE RAILS UP. WILL ENDORSE TO MORNING SHIFT RN FOR JENNY.
--- NOTE | 2021-09-13 07:20 | NUR ---
RN OPENING NOTE RECEIVED PATIENT ON BED, ON TRACH/VENT WITH SETTINGS TOLERATING WELL. PATIENT IS OBTUNDED/NON-VERBAL. G-TUBE INTACT, PATENT, NO RESIDUAL NOTED AT THE TIME. IV ACCESS NOTED ON RIGHT UPPER ARM ML INFUSING ZOSYN AT 25 ML/HR. ALL SAFETY MEASURES IMPLEMENTED. SEIZURE PRECAUTIONS IN PLACE. HOB ELEVATED. BED ALARM ON. BED LOCKED AND IN LOWEST POSITION. SIDE RAILS UP. WILL CONTINUE TO MONITOR AND ASSESS FOR ANY CHANGES DURING SHIFT.
[2021-09-13 07:32] LABS: BASOPHILS % (AUTO) 0.3 % (0.0-2.0); EOSINOPHILS % (AUTO) 1.8 % (0.0-6.0); HEMATOCRIT 34 % (39-51); LYMPHOCYTES # (AUTO) 2.7 K/uL (0.8-4.8); LYMPHOCYTES % (AUTO) 26.9 % (20.0-44.0); MEAN CORPUSCULAR HGB CONC 32 g/dl (31.0-36.0); MEAN CORPUSCULAR VOLUME 96 fL (80-96); MONOCYTES # (AUTO) 0.9 K/uL (0.1-1.30); MONOCYTES % (AUTO) 8.6 % (2.0-12.0); NEUTROPHILS # (AUTO) 6.3 K/uL (1.8-8.9); NEUTROPHILS % (AUTO) 62.4 % (43.0-81.0); PLATELET COUNT (AUTO) 262 K/uL (150-450); RED BLOOD CELL COUNT(AUTO) 3.58 MIL/uL (4.5-6.0); WHITE BLOOD COUNT (AUTO) 10.1 K/uL (4.3-11.0)
[2021-09-13 07:52] LABS: CALCIUM, SERUM 9.2 mg/dL (8.5-10.1); CREATININE 1.1 mg/dL (0.6-1.3); POTASSIUM 3.7 mmol/L (3.5-5.1)
[2021-09-13 08:00] VITALS: BP 138/96
[2021-09-13] MEDS: BLOOD SUGAR DIAGNOSTIC 1 EACH STRIP VI SCH ×3 (08:04→16:52)
[2021-09-13] MEDS: CHLORHEXIDINE GLUCONATE 15 ML UDC MM SCH (08:23)
[2021-09-13] MEDS: MULTIVIT W/MINERALS 1 TAB TABLET GT SCH (08:23)
[2021-09-13] MEDS: DOCUSATE SODIUM LIQ 100 MG/10 ML UDC NG SCH (08:23)
[2021-09-13] MEDS: VALPROIC ACID 250 MG/5 ML UDC GT SCH (08:23)
[2021-09-13] MEDS: AMLODIPINE BESYLATE 5 MG TABLET GT SCH (08:24)
[2021-09-13] MEDS: METOPROLOL TARTRATE 25 MG TABLET GT SCH ×2 (08:24→16:26)
[2021-09-13] MEDS: FERROUS SULFATE (325 MG) 325 MG/TAB TABLET GT SCH (08:24)
[2021-09-13] MEDS: BACLOFEN (10 MG) 10 MG TABLET GT SCH ×3 (08:24→16:26)
[2021-09-13] MEDS: ZINC SULFATE 220 MG CAPSULE GT SCH (08:24)
[2021-09-13] MEDS: ASCORBIC ACID 500 MG TABLET GT SCH (08:24)
[2021-09-13] MEDS: LEVETIRACETAM SOL (5 ML) 100 MG/ML UDC GT SCH (08:28)
[2021-09-13] MEDS: THERAHONEY GEL 1.5 OZ TUBE TP SCH (08:29)
[2021-09-13] MEDS: PROSOURCE / PROSTAT (PYXIS) 30 ML UDC GT SCH (08:29)
[2021-09-13] MEDS: ENOXAPARIN SODIUM 40 MG/0.4 ML DISP.SYRIN SQ SCH (08:29)
[2021-09-13] MEDS ORDERED: MERO500V23 IV (09:55)
[2021-09-13] MEDS ORDERED: VALP250S22 GT (09:55)
[2021-09-13] MEDS ORDERED: LEVE100S GT (09:55)
[2021-09-13] MEDS ORDERED: LINEZOLID 600 MG TABLET GT SCH ×2 (11:00)
[2021-09-13] MEDS ORDERED: LINE600T12 GT (11:03)
[2021-09-13] MEDS ORDERED: RXGEN XX (11:05)
[2021-09-13 12:00] VITALS: BP 149/99
[2021-09-13] MEDS ORDERED: GENTAMICIN 320 MG in IV D5W 100 ML IV SCH (12:00)
--- NOTE | 2021-09-13 14:40 | NUR ---
RN NOTES REPORT GIVEN TO VLAD BEJARANO AT [facility] FOR TRANSFER.
[2021-09-13 16:00] VITALS: BP 145/86
[2021-09-13 16:26] VITALS: BP 145/86
[2021-09-13] MEDS: ACETAMINOPHEN 325 MG TABLET PO PRN (18:39)
--- NOTE | 2021-09-13 19:20 | NUR ---
RESPIRATORY PRACTITIONER NOTES PATIENT LEFT HOSPITAL IN STABLE CONDITION. PATIENT ON VENT/TRACH, TOLERATING SETTINGS WELL. NO S/S OF RESPIRATORY DISTRESS NOTED AT THE TIME. ALL DUE MEDS GIVEN ORDERED. KEPT PATIENT CLEAN, DRY AND COMFORTABLE. ALL NEEDS ATTENDED. PATIENT LEFT HOSPITAL VIA GURNEY WITH 2 EMT CREW AND RT IN STABLE CONDITION.
== END 2021-09-13 20:50 | DRG 720 ==
LOC: ER 14:20 → TELE-TD 19:04 → ICU 09-10 15:43 → TELE1 09-12 19:00
PROVIDERS: ADMIT Internal Medicine; ATTEND Internal Medicine
PROC: 5A1955Z Respiratory Ventilation, Greater than 96 Consecutive Hours (ICD-10-PCS; principal; 2021-09-09)
PROC: 05H533Z Insertion of Infusion Device into Right Subclavian Vein, Percutaneous Approach (ICD-10-PCS; 2021-09-09)
PROC: B546ZZA Ultrasonography of Right Subclavian Vein, Guidance (ICD-10-PCS; 2021-09-09)
PROC: 05H633Z Insertion of Infusion Device into Left Subclavian Vein, Percutaneous Approach (ICD-10-PCS; 2021-09-10)
PROC: B547ZZA Ultrasonography of Left Subclavian Vein, Guidance (ICD-10-PCS; 2021-09-10)
DX: A41.9 Sepsis, unspecified organism (principal); J96.21 Acute and chronic respiratory failure with hypoxia; N17.0 Acute kidney failure with tubular necrosis; G93.41 Metabolic encephalopathy; E43 Unspecified severe protein-calorie malnutrition; L89.154 Pressure ulcer of sacral region, stage 4; R53.2 Functional quadriplegia; D68.59 Other primary thrombophilia; E87.1 Hypo-osmolality and hyponatremia; E86.0 Dehydration; E86.1 Hypovolemia; E11.9 Type 2 diabetes mellitus without complications; J44.9 Chronic obstructive pulmonary disease, unspecified; I25.10 Atherosclerotic heart disease of native coronary artery without angina pectoris; N39.0 Urinary tract infection, site not specified; E88.09 Other disorders of plasma-protein metabolism, not elsewhere classified; E78.5 Hyperlipidemia, unspecified; G40.909 Epilepsy, unspecified, not intractable, without status epilepticus; K21.9 Gastro-esophageal reflux disease without esophagitis; M20.41 Other hammer toe(s) (acquired), right foot; M20.42 Other hammer toe(s) (acquired), left foot; E87.2 Acidosis; F32.A Depression, unspecified; F41.9 Anxiety disorder, unspecified; I10 Essential (primary) hypertension; M24.571 Contracture, right ankle; M24.572 Contracture, left ankle; M62.82 Rhabdomyolysis; R13.10 Dysphagia, unspecified; Z93.1 Gastrostomy status; Z87.440 Personal history of urinary (tract) infections; Z86.73 Personal history of transient ischemic attack (TIA), and cerebral infarction without residual deficits; Z99.11 Dependence on respirator [ventilator] status; Z93.0 Tracheostomy status; D63.8 Anemia in other chronic diseases classified elsewhere; S90.822A Blister (nonthermal), left foot, initial encounter; X58.XXXA Exposure to other specified factors, initial encounter; Y93.9 Activity, unspecified; Y92.129 Unspecified place in nursing home as the place of occurrence of the external cause; M24.542 Contracture, left hand; M24.541 Contracture, right hand; B96.5 Pseudomonas (aeruginosa) (mallei) (pseudomallei) as the cause of diseases classified elsewhere; B95.2 Enterococcus as the cause of diseases classified elsewhere; Z16.21 Resistance to vancomycin; N40.1 Benign prostatic hyperplasia with lower urinary tract symptoms; Z79.4 Long term (current) use of insulin
CPT/HCPCS: 31720; 36410; 36415; 36600; 70450-TC; 71045-TC; 80048-TC; 80061-TC; 80076-TC; 80164-TC; 81001; 82962-TC; 83605-TC; 83690-TC; 83735-TC; 84100-TC; 84484-TC; 85025-TC; 85730-TC; 87040-TC; 87081-TC; 87086-TC; 87186-TC; 94002-TC; 94003-TC; 94760-TC; 94799-TC; 95819-TC; 99082-TC; A4349; A7526; G0378; J1580; J1650; J1815; J1953; J2060; J2270; J2543; J3490; J7030; J7050; J7060

== ENCOUNTER 2021-09-14 17:08 | Inpatient (IN) | payer MEDICAID ==
[~2021-09-14] VITALS: Ht 175.3 cm; Wt 69.9 kg
[~2021-09-14 17:08] MED LIST changes: -AMIN887L GT; +ATOR10TA GT; -LACT-209 GT; +LEVE100S GT; -LEVE500T9 GT; +LINE600T12 GT; +NUT.237L30 GT; -NUTR1PAC14 GT; +RXGEN XX; +SENN-175 GT; +VALP250S22 GT; +ZINC220C6 GT
--- NOTE | 2021-09-14 17:08 | NUR ---
PT RUSSELL FROM [facility] C/O FEVER AND ELEVATED HEART RATE. PT IS AAOX0, ON VENT VIA TRACH, HOOKED TO TOBACCO CLOTH RECLAIMER, KEPT RESTED AND COMFORTABLE. WILL CONTINUE TO MONITOR.
--- NOTE | 2021-09-14 17:09 | NUR ---
RT AT BEDSIDE FOR VENT SET UP.
--- NOTE | 2021-09-14 17:14 | NUR ---
SEEN AND EXAMINED BY .
[2021-09-14] MEDS ORDERED: ACETAMINOPHEN 650 MG/SUPP.RECT RC ONE ×2 (17:30→17:37)
--- NOTE | 2021-09-14 17:32 | NUR ---
UNABLE TO ESTABLISHED IV LINE AFTER MULTIPLE ATTEMPT.
--- NOTE | 2021-09-14 17:35 | NUR ---
RT Pt received in ER on Portex 7 CUFFED trach. Placed patient on vent settings provided by [facility] facility records. Pt tolerating current settings well. Back up trach + Ambu bag at bedside. Will continue to monitor.
--- NOTE | 2021-09-14 17:57 | NUR ---
CONDOM CATH APPLIED.
[2021-09-14] MEDS ORDERED: IV NS 0.9% 1,000 ML BAG IV ONE ×3 (18:00→19:00)
--- NOTE | 2021-09-14 18:06 | NUR ---
COVID ANTIGEN SWAB DONE
--- NOTE | 2021-09-14 18:39 | NUR ---
MOVE SHEET SUBMITTED AND CALLED FOR TELE BED.
--- NOTE | 2021-09-14 19:15 | NUR ---
ALFREDO MAO TALKING TO MICHAEL MAO
[2021-09-14] MEDS ORDERED: HYDROMORPHONE 1 MG/1 ML DISP.SYRIN IV ONE (19:30)
[2021-09-14] MEDS ORDERED: HYDROMORPHONE 1 MG/1 ML DISP.SYRIN ONE (19:34)
[2021-09-14 20:00] LABS: BASOPHILS # (AUTO) 0.1 K/uL (0.0-0.2); BASOPHILS % (AUTO) 0.4 % (0.0-2.0); EOSINOPHILS % (AUTO) 0.1 % (0.0-6.0); HEMATOCRIT 44 % (39-51); HEMOGLOBIN 13.5 g/dL (13.5-17.5); LYMPHOCYTES # (AUTO) 5.2 K/uL (0.8-4.8); MEAN CORPUSCULAR HGB CONC 31 g/dl (31.0-36.0); MEAN CORPUSCULAR VOLUME 98 fL (80-96); MONOCYTES # (AUTO) 1.5 K/uL (0.1-1.30); MONOCYTES % (AUTO) 7.7 % (2.0-12.0); NEUTROPHILS # (AUTO) 12.4 K/uL (1.8-8.9); NEUTROPHILS % (AUTO) 64.8 % (43.0-81.0); RED BLOOD CELL COUNT(AUTO) 4.46 MIL/uL (4.5-6.0); WHITE BLOOD COUNT (AUTO) 19.1 K/uL (4.3-11.0)
--- NOTE | 2021-09-14 20:00 | NUR ---
FOLLOWED UP WITH LAB REGARDING RESULTS
[2021-09-14 20:33] LABS: CALCIUM, SERUM 10.8 mg/dL (8.5-10.1); CARBON DIOXIDE 28 mmol/L (21-32); CHLORIDE 106 mmol/L (98-107); CREATININE 2.2 mg/dL (0.6-1.3); GLUCOSE 114 mg/dL (74-106); POTASSIUM 5.5 mmol/L (3.5-5.1); SODIUM SERUM 147 mmol/L (136-145); UREA NITROGEN, BLOOD 35 mg/dL (7-18)
--- NOTE | 2021-09-14 20:37 | NUR ---
UNABLE TO OBTAIN URINE AT THIS TIME, CONDOM CATH IN PLACE
[2021-09-14 20:40] LABS: ALANINE AMINOTRANSFERASE 52 U/L (12-78); ALBUMIN 3.2 g/dL (3.4-5.0); ALKALINE PHOSPHATASE 111 U/L (46-116); ASPARTATE AMINOTRANSFERASE 79 U/L (15-37); BILIRUBIN,DIRECT 0.1 mg/dL (0.0-0.2); BILIRUBIN,TOTAL 0.3 mg/dL (0.2-1.0); TOTAL PROTEIN, SERUM 10.3 g/dL (6.4-8.2)
--- NOTE | 2021-09-14 20:45 | NUR ---
BART MOTHER [phone]
--- NOTE | 2021-09-14 21:01 | NUR ---
REPORT GIVEN TO SHIREEN BEJARANO FOR JENNY
[2021-09-14 22:12] LABS: PLATELET COUNT (AUTO) 375 K/uL (150-450)
[2021-09-14 22:42] VITALS: BP 127/72
[2021-09-14] MEDS ORDERED: ZOLPIDEM TARTRATE 5 MG TABLET PO PRN (23:30)
[2021-09-14] MEDS ORDERED: HYDROCODONE/APAP 5/325MG TABLET PO PRN (23:30)
[2021-09-14] MEDS ORDERED: MAGNESIUM HYDROXIDE 30 ML UDC PO PRN (23:30)
[2021-09-14] MEDS ORDERED: MAG HYDROX/AL HYDROX/SIMETH 30 ML UDC PO PRN (23:30)
[2021-09-14] MEDS ORDERED: ONDANSETRON HCL/PF 4 MG/2 ML VIAL IVP PRN (23:30)
[2021-09-14] MEDS ORDERED: Z GUARD REMEDY 4 OZ OINT TP PRN (23:30)
[2021-09-14] MEDS ORDERED: SODIUM POLYSTYRENE SULFONATE 15 G/60 ML BOTTLE PO ONE (23:30)
[2021-09-15] VITALS (25 sets, daily range): BP systolic 93–169; BP diastolic 61–92
[2021-09-15] MEDS ORDERED: SODIUM POLYSTYRENE SULFONATE 15 G/60 ML BOTTLE ONE (00:20)
[2021-09-15] MEDS: LINEZOLID 600 MG TABLET PO SCH ×2 (00:37→09:00)
[2021-09-15] MEDS: IV 1/2NS 1000 ML 1,000 ML IV PRN ×3 (00:40→16:30)
--- NOTE | 2021-09-15 04:23 | NUR ---
RN notes Admitted a 45 year old from ER via stretchers accompanied by 3 staff with admitting diagnosis of sepsis and acute kidney disease. Obtunded with bilateral and upper and lower extremities flexed. Eyes open, with no eye contact noted. Skin assessment done. Right upper arm midline patent, flushed with 10mls NS. No facial grimacing noted. No physical manifestation of pain or discomfort. Afebrile, vital signs wnl. Bed bath administered. Kept clean and dry. Will endorse to next shift for continuity of care.
[2021-09-15 07:00] LABS: BASOPHILS % (AUTO) 0.3 % (0.0-2.0); HEMATOCRIT 35 % (39-51); HEMOGLOBIN 10.9 g/dL (13.5-17.5); LYMPHOCYTES # (AUTO) 4.2 K/uL (0.8-4.8); LYMPHOCYTES % (AUTO) 25.9 % (20.0-44.0); MEAN CORPUSCULAR HGB CONC 31 g/dl (31.0-36.0); MEAN CORPUSCULAR VOLUME 98 fL (80-96); MONOCYTES # (AUTO) 2.2 K/uL (0.1-1.30); MONOCYTES % (AUTO) 13.5 % (2.0-12.0); NEUTROPHILS # (AUTO) 9.8 K/uL (1.8-8.9); NEUTROPHILS % (AUTO) 60.3 % (43.0-81.0); PLATELET COUNT (AUTO) 200 K/uL (150-450); WHITE BLOOD COUNT (AUTO) 16.3 K/uL (4.3-11.0)
--- NOTE | 2021-09-15 07:20 | NUR ---
RN OPENING NOTES RECEIVED PATIENT IN BED, OBTUNDED. ON TRACH/VENT, TOLERATING SETTINGS WELL. NO SIGNS OF RESPIRATORY DISTRESS NOTED. SPO2 @100%. WITH IV ACCESS ON RIGHT UPPER ARM MIDLINE, INTACT AND PATENT. 1/2 NS RUNNING @ 125ML/HR. ON TELE MONITOR SHOWING SINUS TACH, HR @136. NOTED PATIENT WITH EPISODES OF SHAKING. PER NIGHT NURSE, PATIENT HAD EPISODES OF DIAPHORESIS AND SHAKING. HOB ELEVATED, ASPIRATIONS PRECAUTION OBSERVED. SAFETY MEASURES IN PLACE. BED IN LOWEST LOCKED POSITION, SR UP X2, CALL LIGHT PLACED WITHIN EASY REACH. WILL CONTINUE TO MONITOR PATIENT.
[2021-09-15] MEDS: PANTOPRAZOLE 40 MG TABLET.DR PO SCH (07:30)
[2021-09-15 07:45] LABS: CALCIUM, SERUM 8.6 mg/dL (8.5-10.1); CREATININE 1.4 mg/dL (0.6-1.3); MAGNESIUM 1.8 mg/dL (1.8-2.4); PHOSPHORUS 3.9 mg/dL (2.5-4.9); POTASSIUM 4.8 mmol/L (3.5-5.1)
[2021-09-15] MEDS: MORPHINE SULFATE INJ 2 MG/ML DISP.SYRIN IV PRN (08:20)
--- NOTE | 2021-09-15 08:30 | NUR ---
RN NOTE RAPID RESPONSE CALLED DUE TO DIAPHORETIC TACHYCARDIA >140. RR >40. TEMPERATURE 103 AXILLARY. ATIVAN, TYLENOL, AND MORPHINE GIVEN. RT PRESENT. PT TRANSFERRED TO ICU BED 254
[2021-09-15] MEDS: ACETAMINOPHEN 325 MG TABLET PO PRN ×2 (08:38→18:04)
--- NOTE | 2021-09-15 09:30 | NUR ---
RN NOTE RECTAL TEMPERATURE 103. 5 ICE BAGS AND COOLING BLANKET PLACED. NORCO GIVEN.
[2021-09-15] MEDS: LORAZEPAM INJ 2 MG/ML VIAL IV PRN ×5 (09:39→21:25)
[2021-09-15 09:43] LABS: BASOPHILS # (AUTO) 0.1 K/uL (0.0-0.2); BASOPHILS % (AUTO) 0.7 % (0.0-2.0); EOSINOPHILS % (AUTO) 0.1 % (0.0-6.0); HEMATOCRIT 37 % (39-51); HEMOGLOBIN 11.6 g/dL (13.5-17.5); LYMPHOCYTES # (AUTO) 4.6 K/uL (0.8-4.8); LYMPHOCYTES % (AUTO) 21.8 % (20.0-44.0); MEAN CORPUSCULAR HGB CONC 31 g/dl (31.0-36.0); MEAN CORPUSCULAR VOLUME 98 fL (80-96); MONOCYTES # (AUTO) 3.1 K/uL (0.1-1.30); MONOCYTES % (AUTO) 14.6 % (2.0-12.0); NEUTROPHILS # (AUTO) 13.1 K/uL (1.8-8.9); NEUTROPHILS % (AUTO) 62.8 % (43.0-81.0); PLATELET COUNT (AUTO) 269 K/uL (150-450); WHITE BLOOD COUNT (AUTO) 20.9 K/uL (4.3-11.0)
--- NOTE | 2021-09-15 10:30 | NUR ---
RN NOTES PT HR 130, SHAKING, AND TEMP 104. ATIVAN GIVEN. GTUBE MALFUNCTION. DUNG K CASH MANAGEMENT COORDINATOR AWARE. ABG DRAWN. PER DR. OLSON NO NEW ORDERS
[2021-09-15 10:42] LABS: ABG BASE EXCESS -3.4 mmol/L; ABG OXYGEN SATURATION 98.4 % (92.0-98.5); ABG PCO2 33.6 mmHg (35.0-45.0); ABG PH 7.405 (7.350-7.450); ABG PO2 123.5 mmHg (75.0-100.0); AaDO2 159.1 mmHg; COHb 0.3 % (0.5-1.5); MetHb 0.3 % (0.0-1.5); O2Hb 97.8 % (94.0-97.0); SITE, ABG Right Femoral; VENT MODE, BG AC 16 450 45% +5
[2021-09-15] MEDS ORDERED: ACETAMINOPHEN ES 500 MG TABLET GT PRN (11:30)
[2021-09-15] MEDS ORDERED: NA PHOS,M-B/NA PHOS,DI-BA 1 EA ENEMA RC PRN (11:30)
[2021-09-15] MEDS ORDERED: HYDROCODONE/APAP 5/325MG TABLET GT PRN (11:30)
[2021-09-15] MEDS ORDERED: MAGNESIUM HYDROXIDE 30 ML UDC GT PRN (11:30)
[2021-09-15] MEDS ORDERED: ACETAMINOPHEN 325 MG TABLET MC PRN (11:30)
[2021-09-15] MEDS ORDERED: LEVETIRACETAM (500MG) 1,000 MG in IV NS 0.9% 100 ML IV SCH (11:30)
[2021-09-15] MEDS ORDERED: BISACODYL SUPP (10 MG) 10 MG/SUPP.RECT SUPP.RECT RC PRN (11:30)
[2021-09-15] MEDS: GENTAMICIN 140 MG in IV D5W 100 ML IV SCH (12:09)
[2021-09-15] MEDS ORDERED: LINEZOLID 600 MG TABLET GT SCH ×2 (12:16→17:00)
[2021-09-15] MEDS: BACLOFEN (10 MG) 10 MG TABLET GT SCH ×2 (13:05→16:23)
[2021-09-15] MEDS: IPRATROPIUM NEB FS 0.5 MG/2.5 ML AMPUL.NEB NEB SCH ×2 (13:53→19:42)
[2021-09-15] MEDS: ALBUTEROL FS 2.5 MG/0.5 ML VIAL.NEB NEB SCH ×2 (13:54→19:42)
[2021-09-15] MEDS: ZOSYN IVPB 3.375 G in IV D5W 50ml IV SCH ×3 (14:05→23:26)
[2021-09-15] MEDS: METOPROLOL TARTRATE 25 MG TABLET GT SCH (16:24)
[2021-09-15] MEDS ORDERED: Medication Not On Formulary EA (Cran/Vitc/Mannose/Inulin/Brom (Uti-Stat Liquid) 30 ML) PO SCH (17:00)
[2021-09-15 17:43] LABS: BILIRUBIN,URINE NEGATIVE (NEGATIVE); COLOR,URINE YELLOW (YELLOW); LEUKOCYTE ESTERASE ,URINE MODERATE (NEGATIVE); NITRITE, URINE NEGATIVE (NEGATIVE); PH,URINE 5.5 (5.0-8.0); PROTEIN,URINE 30 mg/dl (NEGATIVE); UGLUCOSE NEGATIVE (NEGATIVE); UROBILINOGEN,URINE 0.2 EU/dL (0.2)
[2021-09-15 18:02] LABS: BACTERIA,URINE 2+ /HPF (None Seen); RBC,URINE 51-80 /HPF (0-2); SQUAMOUS EPITHELIAL CELL,UR 0-2 /HPF (None Seen); WBC,URINE 21-50 /HPF (0-3)
[2021-09-15] MEDS: GLUCERNA 1.2 1,000 ML BOTTLE NG PRN (18:45)
--- NOTE | 2021-09-15 18:58 | NUR ---
RN NOTES PT RESTING IN BED. COOLING BLANKET IN PLACE FOR TEMP OF 100.1. TYLENOL GIVEN ORDERED. TOLERATING VENT SETTINGS WELL. ALL DUE MEDS GIVEN. NEEDS ATTENDED. KEPT CLEAN AND COMFORTABLE. SAFETY MEASURES IN PLACE. ENDORSED TO NIGHT RN FOR JENNY.
--- NOTE | 2021-09-15 20:00 | NUR ---
ICU NOTES Patient resting in no acute distress.Tolerating vent settings.SR.Feverish 100.1 on continuous cooling measures.Cooling blanket in place.SR .Normotensive.Patient on GT feeding no residual noted.Aspiration precaution maintain with HOB elevated.Condom cath in place draining clear yellow urine.Turned and repositioned.
[2021-09-15] MEDS ORDERED: LEVETIRACETAM SOL (5 ML) 100 MG/ML UDC GT SCH (21:00)
[2021-09-15] MEDS: CHLORHEXIDINE GLUCONATE 15 ML UDC MM SCH (21:04)
[2021-09-15] MEDS: VALPROIC ACID 250 MG/5 ML UDC GT SCH (21:04)
[2021-09-15] MEDS: LEVETIRACETAM (500MG) 1,500 MG in IV NS 0.9% 100 ML IV SCH (21:04)
[2021-09-15] MEDS: LINEZOLID 600 MG TABLET GT SCH (21:04)
[2021-09-15] MEDS: FAMOTIDINE (20 MG) 20 MG TABLET GT SCH (21:10)
[2021-09-15] MEDS: ATORVASTATIN 10 MG TABLET GT SCH (21:10)
[2021-09-15] MEDS: SENNOSIDES 8.6 MG TABLET GT SCH (21:11)
--- NOTE | 2021-09-15 21:25 | NUR ---
ICU NOTES Patient shaking and tachyniec RR 40's Ativan administered as ordered.Effective.
--- NOTE | 2021-09-15 22:15 | NUR ---
ICU NOTES ID POLE TESTER,JC her to evaluate patient orders received and carried out.Bladder scan done reading 134 ml.
[2021-09-16] VITALS (16 sets, daily range): BP systolic 94–165; BP diastolic 54–95
[2021-09-16] MEDS: IV 1/2NS 1000 ML 1,000 ML IV PRN ×3 (00:43→16:32)
[2021-09-16] MEDS: IPRATROPIUM NEB FS 0.5 MG/2.5 ML AMPUL.NEB NEB SCH ×4 (01:06→20:10)
[2021-09-16] MEDS: ALBUTEROL FS 2.5 MG/0.5 ML VIAL.NEB NEB SCH ×4 (01:06→20:10)
[2021-09-16] MEDS: LORAZEPAM INJ 2 MG/ML VIAL IV PRN ×6 (02:58→20:51)
[2021-09-16 04:31] LABS: BASOPHILS % (AUTO) 0.3 % (0.0-2.0); EOSINOPHILS % (AUTO) 0.2 % (0.0-6.0); HEMATOCRIT 33 % (39-51); HEMOGLOBIN 10.4 g/dL (13.5-17.5); LYMPHOCYTES # (AUTO) 3.7 K/uL (0.8-4.8); LYMPHOCYTES % (AUTO) 23.3 % (20.0-44.0); MEAN CORPUSCULAR HGB CONC 32 g/dl (31.0-36.0); MEAN CORPUSCULAR VOLUME 98 fL (80-96); MONOCYTES # (AUTO) 1.7 K/uL (0.1-1.30); MONOCYTES % (AUTO) 10.4 % (2.0-12.0); NEUTROPHILS # (AUTO) 10.4 K/uL (1.8-8.9); NEUTROPHILS % (AUTO) 65.8 % (43.0-81.0); PLATELET COUNT (AUTO) 172 K/uL (150-450); RED BLOOD CELL COUNT(AUTO) 3.36 MIL/uL (4.5-6.0); WHITE BLOOD COUNT (AUTO) 15.8 K/uL (4.3-11.0)
[2021-09-16 04:33] LABS: CALCIUM, SERUM 8.3 mg/dL (8.5-10.1); CREATININE 1.6 mg/dL (0.6-1.3); PHOSPHORUS 4.8 mg/dL (2.5-4.9); POTASSIUM 3.8 mmol/L (3.5-5.1)
[2021-09-16] MEDS: ZOSYN IVPB 3.375 G in IV D5W 50ml IV SCH ×4 (05:39→23:28)
--- NOTE | 2021-09-16 06:30 | NUR ---
ICU END NOTES Patient resting in no acute distress.Vital signs stable.Tolerating vent settings.Tolerating GT feeding. AM care done.Wound care done.Patient received 2 doses of Ativan for shaking and got tachypneic. Highest temp 100.1.Bladder scan done q 8hrs.stared at 2215 amount 134 and at 0600 amount 185. Urine output during the shift 600 ml.All due medications administered.Turned and repositioned.
--- NOTE | 2021-09-16 07:10 | NUR ---
RN NOTES RECEIVED PT IN BED. OBTUNDED. TOLERATING VENT SETTINGS WELL. NO SOB OR ANY S/S OF ACUTE RESPIRATORY DISTRESS NOTED. AFEBRILE. EYAL ML INTACT AND PATENT. 1/2 NS RUNNING @125ML/HR. GTUBE CHECKED FOR POSITIVE PLACEMENT. NO RESIDUAL. GLUCERNA 1.2 @75ML/HR. CONDOM CATH IN PLACE. SAFETY MEASURES IMPLEMENTED. BED LOCKED AND IN LOWEST POSITION WITH SIDE RAILS UP X3. WILL CONTINUE TO MONITOR.
[2021-09-16] MEDS: VALPROIC ACID 250 MG/5 ML UDC GT SCH ×2 (08:22→21:45)
[2021-09-16] MEDS: FERROUS SULFATE (325 MG) 325 MG/TAB TABLET GT SCH (08:23)
[2021-09-16] MEDS: ZINC SULFATE 220 MG CAPSULE GT SCH (08:23)
[2021-09-16] MEDS: PANTOPRAZOLE 40 MG TABLET.DR PO SCH (08:23)
[2021-09-16] MEDS: MULTIVIT W/MINERALS 1 TAB TABLET GT SCH (08:23)
[2021-09-16] MEDS: DOCUSATE SODIUM 100 MG CAPSULE PO SCH (08:23)
[2021-09-16] MEDS: AMLODIPINE BESYLATE 5 MG TABLET GT SCH (08:24)
[2021-09-16] MEDS: ASCORBIC ACID 500 MG TABLET GT SCH (08:25)
[2021-09-16] MEDS: METOPROLOL TARTRATE 25 MG TABLET GT SCH ×2 (08:25→16:18)
[2021-09-16] MEDS: CHLORHEXIDINE GLUCONATE 15 ML UDC MM SCH ×2 (08:27→21:45)
[2021-09-16] MEDS: LINEZOLID 600 MG TABLET GT SCH (08:27)
[2021-09-16] MEDS: LEVETIRACETAM (500MG) 1,500 MG in IV NS 0.9% 100 ML IV SCH ×2 (08:29→21:04)
[2021-09-16] MEDS: ENOXAPARIN SODIUM 40 MG/0.4 ML DISP.SYRIN SQ SCH (08:29)
[2021-09-16] MEDS: BACLOFEN (10 MG) 10 MG TABLET GT SCH ×3 (08:31→16:17)
[2021-09-16] MEDS ORDERED: PROSTAT (PYXIS) 30 ML UDC GT SCH (09:00)
--- NOTE | 2021-09-16 10:00 | NUR ---
RN NOTES TRANSFERRED PT TO [facility] ROOM 114-1 PER PROTOCOL. VS STABLE. REPORT GIVEN TO JOESPH BEJARANO FOR JENNY.
--- NOTE | 2021-09-16 10:01 | NUR ---
RN NOTE PATIENT RECEIVED ON THE FLOOR, PLACED ROOM 114-2. PATIENT MEDICALLY STABLE AT TIME OF ARRIVAL, RR 22. PATIENT PLACED ON TELE MONITOR. REPORT RECEIVED FROM VI BEJARANO. WILL CONTINUE TO MONITOR.
[2021-09-16] MEDS: GLUCERNA 1.2 1,000 ML BOTTLE NG PRN (12:47)
[2021-09-16] MEDS: GENTAMICIN 140 MG in IV D5W 100 ML IV SCH (12:47)
--- NOTE | 2021-09-16 14:27 | NUR ---
RN NOTE BLADDER SCAN PERFORMED. 265 ML SHOWN. NO JACOBSON OR STRAIGHT CATHETER PLACED. CONDOM CATH STILL IN PLACE AND FUNCTIONING. WILL CONTINUE TO MONITOR.
--- NOTE | 2021-09-16 18:58 | NUR ---
RN CLOSING NOTE PATIENT REMAINS IN BED, OBTUNDED, EYES OPEN. PATIENT ON MECHANICAL VENTILATOR WITH SETTINGS P7, AC 16, TV 450, FIO2 45%, PEEP 5. RR ELEVATED AT TIMES, CURRENTLY STABLE. RT AWARE. CONDOM CATH IN PLACE, DRAINING CLEAR URINE. G TUBE IN PLACE RUNNING GLUCERNA 1.2 AT 75 CC/HR. RIGHT UA MIDLINE RUNNING 1/2NS AT 125 CC/HR. BED LOCKED AND IN LOWEST POSITION, CALL LIGHT WITHIN REACH, 3 SIDE RAILS UP. WILL ENDORSE TO SENIOR PROCESS ENGINEER NURSE.
--- NOTE | 2021-09-16 19:54 | NUR ---
RN OPENING NOTE RECEIVED CARE OF PATIENT WHILE PATIENT IN BED, OBTUNDED, OPENS EYES. PATIENT ON MECHANICAL VENTILATION IS ORDERED SETTINGS, NO RESPIRATORY DISTRESS NOTED, PATIENT ON BESIDE MONITOR SHOWING O2 SAT 99%. PATIENT NOTED WITH CONDOM CATH DRAINING YELLOW URINE TO GRAVITY. G TUBE NOTED WITH GLUCERNA RUNNING AT 75CC/HR, POSITIVE PLACEMENT CONFIRMED BY AUSCULTATION/ ASPIRATION, NO RESIDUAL NOTED. RIGHT UA MIDLINE RUNNING 1/2NS AT 125 CC/HR. BED LOCKED AND IN LOWEST POSITION, CALL LIGHT WITHIN REACH, 3 SIDE RAILS UP. WILL CONTINUE TO MONITOR PATIENT.
[2021-09-16] MEDS: ATORVASTATIN 10 MG TABLET GT SCH (21:45)
[2021-09-16] MEDS: FAMOTIDINE (20 MG) 20 MG TABLET GT SCH (21:45)
[2021-09-16] MEDS: SENNOSIDES 8.6 MG TABLET GT SCH (21:45)
[2021-09-17] VITALS: BP 123/73
--- NOTE | 2021-09-17 00:15 | NUR ---
RN NOTE BLADDER SCAN PERFORMED. 57 ML SHOWN. NO JACOBSON OR STRAIGHT CATHETER PLACED. CONDOM CATH STILL IN PLACE AND DRAINING YELLOW URINE, 600 ML URINE OUTPUT NOTED SINCE START OF THE SHIFT. WILL CONTINUE TO MONITOR PATIENT.
[2021-09-17] MEDS: ALBUTEROL FS 2.5 MG/0.5 ML VIAL.NEB NEB SCH ×4 (01:24→20:19)
[2021-09-17] MEDS: IPRATROPIUM NEB FS 0.5 MG/2.5 ML AMPUL.NEB NEB SCH ×4 (01:24→20:19)
[2021-09-17] MEDS: IV 1/2NS 1000 ML 1,000 ML IV PRN ×3 (01:48→22:14)
[2021-09-17] MEDS: GLUCERNA 1.2 1,000 ML BOTTLE NG PRN ×2 (02:11→22:19)
[2021-09-17 04:00] VITALS: BP 105/63
[2021-09-17] MEDS: ZOSYN IVPB 3.375 G in IV D5W 50ml IV SCH ×3 (05:44→18:06)
--- NOTE | 2021-09-17 07:10 | NUR ---
RN CLOSING NOTES WILL ENDORSE CARE OF PATIENT TO AM NURSE IN STABLE CONDITIONS. PATIENT REMAINS IN BED OBTUNDED, OPENS EYES TO TOUCH. ON VENTILATOR WITH ORDERED SETTINGS, NO RESPIRATORY COMPLICATIONS THROUGHOUT SHIFT. NO SIGNIFICANT FINDINGS UPON ALL NURSING ASSESSMENTS. WOUND CARE PERFORMED ORDERED. SEIZURE PRECAUTIONS MAINTAINED. ALL NEEDS ATTENDED TO. BLADDER SCANS DONE ORDERED. ALL DUE MEDS GIVEN. BED IS LOCKED IN LOWEST POSITION AND ALL HOSPITAL PRECAUTIONS ARE IN PLACE. WILL ENDORSE TO AM NURSE FOR JENNY.
[2021-09-17] MEDS: LORAZEPAM INJ 2 MG/ML VIAL IV PRN ×5 (07:25→20:39)
--- NOTE | 2021-09-17 07:30 | NUR ---
TD RN AM NOTES PATIENT IN BED. OBTUNDED. ON MECHANICAL VENT, PORTEX 7, AC 16, TV 450 FIO2 45 PEEP 5. NO RESPIRATORY DISTRESS. O2 SAT 100%. SR HR 89 ON MONITOR. NO S/S PAIN NOTED. EYAL MIDLINE WITH 1/2 NS AT 125 ML/HR INFUSING WELL, SITE CLEAR. GTUBE RUNNING GLUCERNA @75 ML/HR. PLACEMENT CHECKED. [address]UAL. CONDOM CATH IN PLACE, DRAINING TO GRAVITY. CLEAR URINE. SEE NURSING FLOWSHEET FOR SKIN ISSUES. SEIZURE PRECAUTION IN PLACE. HOB ELEVATED. BED IS LOCKED, IN LOWEST POSITION AND SIDE RAILS UP. CALL LIGHT WITHIN REACH OF THE PATIENT. WILL PERFORM PRESCRIBED WOUND TREATMENT IN A FEW. WILL TURN AND REPOSITION Q 2 HOURS. WILL CONTINUE TO MONITOR AND REASSESS FOR ANY CHANGES AND WILL CARRY OUT ANY ONGOING AND ACTIVE MD ORDER.
[2021-09-17 08:00] VITALS: BP 125/75
[2021-09-17 08:24] LABS: BASOPHILS # (AUTO) 0.1 K/uL (0.0-0.2); BASOPHILS % (AUTO) 0.5 % (0.0-2.0); EOSINOPHILS % (AUTO) 1.1 % (0.0-6.0); HEMATOCRIT 29 % (39-51); HEMOGLOBIN 9.2 g/dL (13.5-17.5); LYMPHOCYTES # (AUTO) 2.8 K/uL (0.8-4.8); LYMPHOCYTES % (AUTO) 26.9 % (20.0-44.0); MEAN CORPUSCULAR HGB CONC 32 g/dl (31.0-36.0); MEAN CORPUSCULAR VOLUME 97 fL (80-96); MONOCYTES % (AUTO) 9.8 % (2.0-12.0); NEUTROPHILS # (AUTO) 6.4 K/uL (1.8-8.9); NEUTROPHILS % (AUTO) 61.7 % (43.0-81.0); PLATELET COUNT (AUTO) 143 K/uL (150-450); RED BLOOD CELL COUNT(AUTO) 2.95 MIL/uL (4.5-6.0); WHITE BLOOD COUNT (AUTO) 10.5 K/uL (4.3-11.0)
[2021-09-17] MEDS: PANTOPRAZOLE 40 MG TABLET.DR PO SCH (08:25)
[2021-09-17] MEDS: BACLOFEN (10 MG) 10 MG TABLET GT SCH ×3 (08:26→16:39)
[2021-09-17] MEDS: CHLORHEXIDINE GLUCONATE 15 ML UDC MM SCH ×2 (08:26→21:51)
[2021-09-17] MEDS: DOCUSATE SODIUM 100 MG CAPSULE PO SCH (08:26)
[2021-09-17] MEDS: FERROUS SULFATE (325 MG) 325 MG/TAB TABLET GT SCH (08:26)
[2021-09-17] MEDS: VALPROIC ACID 250 MG/5 ML UDC GT SCH ×2 (08:26→21:51)
[2021-09-17] MEDS: ZINC SULFATE 220 MG CAPSULE GT SCH (08:27)
[2021-09-17] MEDS: MULTIVIT W/MINERALS 1 TAB TABLET GT SCH (08:27)
[2021-09-17] MEDS: ASCORBIC ACID 500 MG TABLET GT SCH (08:28)
[2021-09-17] MEDS: ENOXAPARIN SODIUM 40 MG/0.4 ML DISP.SYRIN SQ SCH (08:30)
[2021-09-17] MEDS: AMLODIPINE BESYLATE 5 MG TABLET GT SCH (08:47)
[2021-09-17] MEDS: METOPROLOL TARTRATE 25 MG TABLET GT SCH ×2 (08:47→16:40)
[2021-09-17] MEDS: PROSOURCE / PROSTAT (PYXIS) 30 ML UDC GT SCH (08:51)
[2021-09-17] MEDS: LEVETIRACETAM (500MG) 1,500 MG in IV NS 0.9% 100 ML IV SCH (08:51)
--- NOTE | 2021-09-17 09:30 | NUR ---
RN NOTES DUE MEDS GIVEN
[2021-09-17 09:59] LABS: CREATININE 1.3 mg/dL (0.6-1.3); POTASSIUM 3.2 mmol/L (3.5-5.1)
[2021-09-17 12:00] VITALS: BP 101/45
[2021-09-17] MEDS: GENTAMICIN 140 MG in IV D5W 100 ML IV SCH (12:47)
--- NOTE | 2021-09-17 13:45 | NUR ---
RN NOTES COLLECTED URINE SAMPLE. PLACED IN THE REFRIGERATOR. CALLED IN TO LAB FOR WEEKDAY BABYSITTER
[2021-09-17 16:00] VITALS: BP 106/69
[2021-09-17 17:38] LABS: BILIRUBIN,URINE NEGATIVE (NEGATIVE); COLOR,URINE YELLOW (YELLOW); LEUKOCYTE ESTERASE ,URINE MODERATE (NEGATIVE); NITRITE, URINE NEGATIVE (NEGATIVE); PH,URINE 6.5 (5.0-8.0); PROTEIN,URINE TRACE mg/dl (NEGATIVE); UGLUCOSE NEGATIVE (NEGATIVE); UROBILINOGEN,URINE 0.2 EU/dL (0.2)
[2021-09-17 17:46] LABS: BACTERIA,URINE RARE /HPF (None Seen); SQUAMOUS EPITHELIAL CELL,UR 0-2 /HPF (None Seen); WBC,URINE 21-50 /HPF (0-3); YEAST,URINE Moderate /HPF (None Seen)
--- NOTE | 2021-09-17 18:24 | NUR ---
TAILING MACHINE OPERATOR CLOSING NOTES PATIENT IN BED, RESTING. OBTUNDED. ON MECHANICAL VENT, PORTEX 7, AC 16, TV 450 FIO2 45 PEEP 5. NO RESPIRATORY DISTRESS. O2 SAT 100%. SR HR 89 ON MONITOR. NO S/S PAIN NOTED. EYAL MIDLINE WITH 1/2 NS AT 125 ML/HR INFUSING WELL, SITE CLEAR. G TUBE WITH ONGOING GLUCERNA @75 ML/HR. PLACEMENT CHECKED. 0 RESIDUAL. FREE WATER FLUCH 300 ML Q [address] IN PL[address], DRAINING TO GRAVITY. CLEAR URINE OUTPUT OF 800 ML. SEIZURE PRECAUTION IN PLACE. HOB ELEVATED. BED IS LOCKED, IN LOWEST POSITION AND SIDE RAILS UP. CALL LIGHT WITHIN REACH OF THE PATIENT. PM CARE AND PRESCRIBED WOUND TREATMENT DONE EARLIER. TURNED AND REPOSITIONED Q 2 HOURS. ALL NEEDS MET AT THIS TIME. SUCTION PRN APPLIED. CALL LIGHT WITHIN REACH. WILL ENDORSE TO NEXT SHIFT FOR JENNY. BLADDER SCAN Q 8 HOURS @ 0800 - 187 ML @ 1630 - 120 ML
--- NOTE | 2021-09-17 19:05 | NUR ---
RN NOTES RECEIVED PATIENT ON BED, OBTUNDED, ON MECHANICAL VENTILATOR SETTINGS TOLERATED WELL. RESPIRATORY EVEN AND UNLABORED, REMAIN AFEBRILE, NO S/S OF DISTRESS NOTED. PATIENT NOTED WITH EYAL MID LINE, INTACT IN PLACED, FLUSHED WITH NS. NO INFILTRATION NOTED AT SITE. RUNNING ON 1/2 NS 1L @ 125 ML/HR. WITH G-TUBE , PATENT INTACT, VERIFIED PLACEMENT BY AUSCULTATION, FLUSHED WITH WATER, NO RESIDUAL NOTED UPON ASPIRATION, RUNNING WITH GLUCERNA 1,2 @ 75 ML/HR. NOTED WITH CONDOM CATHETER, DRAINING WELL VIA GRAVITY. ALL SAFETY PRECAUTION PROVIDED, BED IN LOWEST POSITION, LOCKED. CONTINUE TO MONITOR.
[2021-09-17 20:00] VITALS: BP 154/92
--- NOTE | 2021-09-17 20:25 | NUR ---
RN NOTES UPON REVIEWING PT. CHART, NOTED WITH POTASSIUM 3.2, AND IS NOT REPLACED YET. NOTIFIED DR. DASILVA WITH NEW ORDER POTASSIUM 40MEQ GT ONCE NOTED AND CARRIED OUT.
[2021-09-17] MEDS ORDERED: POTASSIUM CHLORIDE 20 MEQ TAB.PRT.SR PO ONE (20:30)
--- NOTE | 2021-09-17 20:39 | NUR ---
RN NOTES ATIVAN 2MG IV GIVEN
--- NOTE | 2021-09-17 20:45 | NUR ---
RN NOTES POTASSIUM 40MEQ TAB CHANGED TO POTASSIUM 40MEG POWDER PACKET.
[2021-09-17] MEDS ORDERED: POTASSIUM CHLORIDE 20 MEQ POWDER PACKET GT ONE (21:00)
[2021-09-17] MEDS: SENNOSIDES 8.6 MG TABLET GT SCH (21:51)
[2021-09-17] MEDS: LEVETIRACETAM SOL (5 ML) 100 MG/ML UDC GT SCH (21:52)
[2021-09-17] MEDS: FAMOTIDINE (20 MG) 20 MG TABLET GT SCH (21:52)
[2021-09-17] MEDS: ATORVASTATIN 10 MG TABLET GT SCH (21:52)
[2021-09-18] VITALS (7 sets, daily range): BP systolic 112–134; BP diastolic 71–90
[2021-09-18] MEDS: ZOSYN IVPB 3.375 G in IV D5W 50ml IV SCH ×4 (00:25→18:27)
[2021-09-18] MEDS: IPRATROPIUM NEB FS 0.5 MG/2.5 ML AMPUL.NEB NEB SCH ×4 (02:26→19:56)
[2021-09-18] MEDS: ALBUTEROL FS 2.5 MG/0.5 ML VIAL.NEB NEB SCH ×4 (02:26→19:56)
[2021-09-18] MEDS: LORAZEPAM INJ 2 MG/ML VIAL IV PRN ×2 (02:41→13:50)
[2021-09-18] MEDS: IV 1/2NS 1000 ML 1,000 ML IV PRN ×2 (06:21→18:27)
--- NOTE | 2021-09-18 07:30 | NUR ---
RN NOTES RN NOTES NO SIGNIFICANT CHANGES THROUGH OUT THE SHIFT. RESPIRATORY EVEN AND UNLABORED, REMAIN AFEBRILE, NO S/S OF DISTRESS NOTED. WITH G-TUBE , RUNNING WITH GLUCERNA 1,2 @ 75 ML/HR. HEAD OF BED KEPT ELEVATED. NOTED WITH CONDOM CATHETER, DRAINING WELL VIA GRAVITY. ALL SAFETY PRECAUTION PROVIDED, BED IN LOWEST POSITION, LOCKED. ENDORSED TO NEXT SHIFT.
[2021-09-18 07:37] LABS: BASOPHILS % (AUTO) 0.3 % (0.0-2.0); EOSINOPHILS % (AUTO) 1.2 % (0.0-6.0); HEMATOCRIT 30 % (39-51); HEMOGLOBIN 9.5 g/dL (13.5-17.5); LYMPHOCYTES # (AUTO) 2.7 K/uL (0.8-4.8); MEAN CORPUSCULAR HGB CONC 32 g/dl (31.0-36.0); MEAN CORPUSCULAR VOLUME 98 fL (80-96); MONOCYTES # (AUTO) 0.6 K/uL (0.1-1.30); MONOCYTES % (AUTO) 7.3 % (2.0-12.0); NEUTROPHILS % (AUTO) 59.2 % (43.0-81.0); PLATELET COUNT (AUTO) 137 K/uL (150-450); RED BLOOD CELL COUNT(AUTO) 3.02 MIL/uL (4.5-6.0); WHITE BLOOD COUNT (AUTO) 8.5 K/uL (4.3-11.0)
[2021-09-18 07:55] LABS: CALCIUM, SERUM 8.8 mg/dL (8.5-10.1); CREATININE 1.1 mg/dL (0.6-1.3); POTASSIUM 3.6 mmol/L (3.5-5.1)
[2021-09-18] MEDS: METOPROLOL TARTRATE 25 MG TABLET GT SCH ×2 (09:41→17:10)
[2021-09-18] MEDS: ZINC SULFATE 220 MG CAPSULE GT SCH (09:42)
[2021-09-18] MEDS: CHLORHEXIDINE GLUCONATE 15 ML UDC MM SCH ×2 (09:42→20:19)
[2021-09-18] MEDS: FERROUS SULFATE (325 MG) 325 MG/TAB TABLET GT SCH (09:42)
[2021-09-18] MEDS: DOCUSATE SODIUM 100 MG CAPSULE PO SCH (09:42)
[2021-09-18] MEDS: LEVETIRACETAM SOL (5 ML) 100 MG/ML UDC GT SCH ×2 (09:43→20:19)
[2021-09-18] MEDS: MULTIVIT W/MINERALS 1 TAB TABLET GT SCH (09:43)
[2021-09-18] MEDS: BACLOFEN (10 MG) 10 MG TABLET GT SCH ×3 (09:43→17:07)
[2021-09-18] MEDS: ENOXAPARIN SODIUM 40 MG/0.4 ML DISP.SYRIN SQ SCH (09:43)
[2021-09-18] MEDS: AMLODIPINE BESYLATE 5 MG TABLET GT SCH (09:44)
[2021-09-18] MEDS: VALPROIC ACID 250 MG/5 ML UDC GT SCH ×2 (09:44→20:19)
[2021-09-18] MEDS: PANTOPRAZOLE 40 MG TABLET.DR PO SCH (09:44)
[2021-09-18] MEDS: ASCORBIC ACID 500 MG TABLET GT SCH (09:44)
[2021-09-18] MEDS: GENTAMICIN 160 MG in IV D5W 100 ML IV SCH (09:45)
[2021-09-18] MEDS: PROSOURCE / PROSTAT (PYXIS) 30 ML UDC GT SCH (09:47)
[2021-09-18] MEDS: GLUCERNA 1.2 1,000 ML BOTTLE NG PRN (18:27)
--- NOTE | 2021-09-18 19:28 | NUR ---
RN NOTES PATIENT ON BED, OBTUNDED, ON MECHANICAL VENTILATOR SETTINGS TOLERATED WELL. RESPIRATORY EVEN AND UNLABORED, REMAIN AFEBRILE, NO S/S OF DISTRESS NOTED. PATIENT NOTED WITH EYAL MID LINE, INTACT IN PLACED, FLUSHED WITH NS. NO INFILTRATION NOTED AT SITE. RUNNING ON 1/2 NS 1L @ 125 ML/HR. WITH G-TUBE , PATENT INTACT, VERIFIED PLACEMENT BY AUSCULTATION, FLUSHED WITH WATER, NO RESIDUAL NOTED UPON ASPIRATION, RUNNING WITH GLUCERNA 1,2 @ 75 ML/HR. NOTED WITH CONDOM CATHETER, DRAINING WELL VIA GRAVITY. ALL SAFETY PRECAUTION PROVIDED, BED IN LOWEST POSITION, LOCKED.WILL ENDORSE TO NIGHT NURSE FOR JENNY
[2021-09-18] MEDS: SENNOSIDES 8.6 MG TABLET GT SCH (21:15)
[2021-09-18] MEDS: ATORVASTATIN 10 MG TABLET GT SCH (21:15)
[2021-09-18] MEDS: FAMOTIDINE (20 MG) 20 MG TABLET GT SCH (21:15)
--- NOTE | 2021-09-18 22:46 | NUR ---
RN NOTE BLADDER SCAN SHOWS 234ML, PATIENT PROCEEDED TO URINATE INTO CONDOM CATH, DRAINING TO GRAVITY. BLADDER SCAN POST URINATION SHOWS URINE AMOUNT 90ML. BLADDER IS NOT FIRM, NO S/S OF TENDERNESS WHEN PALPATING.
[2021-09-19] VITALS: BP 100/66
[2021-09-19] MEDS: ZOSYN IVPB 3.375 G in IV D5W 50ml IV SCH ×5 (00:30→23:36)
[2021-09-19] MEDS: IPRATROPIUM NEB FS 0.5 MG/2.5 ML AMPUL.NEB NEB SCH ×4 (02:45→19:32)
[2021-09-19] MEDS: ALBUTEROL FS 2.5 MG/0.5 ML VIAL.NEB NEB SCH ×4 (02:45→19:32)
[2021-09-19] MEDS: LORAZEPAM INJ 2 MG/ML VIAL IV PRN ×3 (06:06→20:22)
[2021-09-19] MEDS: IV 1/2NS 1000 ML 1,000 ML IV PRN ×2 (06:06→16:24)
--- NOTE | 2021-09-19 06:44 | NUR ---
RN NOTE BLADDER SCANNER MEASURES 170 ML URINE. GOOD OUPUT THROUGHOUT SHIFT 1200ML. CHANGED CONDOM CATH CONNECTION.
[2021-09-19 07:21] LABS: BASOPHILS % (AUTO) 0.1 % (0.0-2.0); EOSINOPHILS % (AUTO) 1.3 % (0.0-6.0); HEMATOCRIT 33 % (39-51); HEMOGLOBIN 10.8 g/dL (13.5-17.5); LYMPHOCYTES # (AUTO) 3.3 K/uL (0.8-4.8); LYMPHOCYTES % (AUTO) 32.7 % (20.0-44.0); MEAN CORPUSCULAR HGB CONC 32 g/dl (31.0-36.0); MEAN CORPUSCULAR VOLUME 98 fL (80-96); MONOCYTES # (AUTO) 0.8 K/uL (0.1-1.30); MONOCYTES % (AUTO) 7.6 % (2.0-12.0); NEUTROPHILS # (AUTO) 5.8 K/uL (1.8-8.9); NEUTROPHILS % (AUTO) 58.3 % (43.0-81.0); PLATELET COUNT (AUTO) 148 K/uL (150-450)
--- NOTE | 2021-09-19 07:30 | NUR ---
RN OPENING NOTES RECEIVED PATIENT IN BED. NOT IN DISTRESS, NO FACIAL GRIMACING NOTES, NOTED PATIENT DIAPHORETIC. TRACH TO VENT AC 16 FIO2 40% TV 450 PEEP 5 SATING 98%. GT PATENT AND INTACT WITH TF GLUCERNA 1.2 @ 75CCHR. EYAL MIDLINE PATENT AND INTACT WITH IVF RUNNING 1/2 NS @ 125CCHR. CONDOM CATHETER INTACT AND IN PLACE. HOB ELEVATED BED TO LOWEST POSITION AND LOCKED.
[2021-09-19 07:44] LABS: CALCIUM, SERUM 9.1 mg/dL (8.5-10.1); CREATININE 1.3 mg/dL (0.6-1.3); POTASSIUM 4.1 mmol/L (3.5-5.1)
--- NOTE | 2021-09-19 07:54 | NUR ---
RN CLOSING NOTE PATIENT OBTUNDED. ON MECHANICAL VENT, NO CHANGES IN SETTINGS. NO S/S RESPIRATORY DISTRESS. NO S/S PAIN NOTED. PATIENT DID HAVE AN EPISODE OF DIAPHORETIC AND HR UP TO 157. PRN ATIVAN GIVEN. PATIENT WAS SINUS RHYTHM . SINUS TACHYCARDIA ON THE MONITOR. CONDOM CATH IN PLACE OUTPUT 1200ML, CLEAR YELLOW OUTPUT, BLADDER SCANNER Q8HR. GTUBE RUNNING GLUCERNA AT 75ML/HR. FREE WATER FLUSHED Q6 HOUR. EYAL MIDLINE RUNNING 1/2NS@125ML/HR. SAFETY MEASURES IN PLACE. ENDORSED TO ONCOMING SHIFT.
[2021-09-19 08:00] VITALS: BP 117/73
[2021-09-19] MEDS: ASCORBIC ACID 500 MG TABLET GT SCH (09:21)
[2021-09-19] MEDS: CHLORHEXIDINE GLUCONATE 15 ML UDC MM SCH ×2 (09:21→21:58)
[2021-09-19] MEDS: MULTIVIT W/MINERALS 1 TAB TABLET GT SCH (09:21)
[2021-09-19] MEDS: FERROUS SULFATE (325 MG) 325 MG/TAB TABLET GT SCH (09:21)
[2021-09-19] MEDS: LEVETIRACETAM SOL (5 ML) 100 MG/ML UDC GT SCH ×2 (09:21→21:58)
[2021-09-19] MEDS: PANTOPRAZOLE 40 MG TABLET.DR PO SCH (09:21)
[2021-09-19] MEDS: AMLODIPINE BESYLATE 5 MG TABLET GT SCH (09:21)
[2021-09-19] MEDS: PROSOURCE / PROSTAT (PYXIS) 30 ML UDC GT SCH (09:21)
[2021-09-19] MEDS: DOCUSATE SODIUM 100 MG CAPSULE PO SCH (09:21)
[2021-09-19] MEDS: BACLOFEN (10 MG) 10 MG TABLET GT SCH ×3 (09:21→16:22)
[2021-09-19] MEDS: METOPROLOL TARTRATE 25 MG TABLET GT SCH ×2 (09:22→16:23)
[2021-09-19] MEDS: VALPROIC ACID 250 MG/5 ML UDC GT SCH ×2 (09:22→21:58)
[2021-09-19] MEDS: ZINC SULFATE 220 MG CAPSULE GT SCH (09:22)
[2021-09-19] MEDS: ENOXAPARIN SODIUM 40 MG/0.4 ML DISP.SYRIN SQ SCH (09:23)
[2021-09-19] MEDS: GENTAMICIN 160 MG in IV D5W 100 ML IV SCH (10:26)
[2021-09-19 12:00] VITALS: BP 101/59
[2021-09-19] MEDS: THERAHONEY GEL 1.5 OZ TUBE TP SCH (12:31)
[2021-09-19] MEDS: GLUCERNA 1.2 1,000 ML BOTTLE NG PRN (14:12)
[2021-09-19 16:00] VITALS: BP 111/53
--- NOTE | 2021-09-19 16:00 | NUR ---
RN NOTES BLADDER SCAN DONE WITH 267CC RESULT. NEXT BLADDER SCAN DUE 0000
--- NOTE | 2021-09-19 19:03 | NUR ---
RN CLOSING NOTES PATIENT IN BED TRACH TO VENT. EYAL IV SITE WITH IVF 1/2 NS @ 125CCHR, GT INTACT WITH TF RUNNING GLUCERNA 1.2 @ 75CCHR. CONDOM CATH IN PLACE. KEPT HOB ELEVATED. BED TO LOWEST POSITION AND LOCKED. WILL ENDORSE TO NIGHT NURSE ON DUTY.
--- NOTE | 2021-09-19 19:32 | NUR ---
RN OPENING NOTE PATIENT IN BED, PATIENT IS OBTUNDED. [facility] AC 16 TV 450 FIO2 40 AND PEEP 5. 100% O2 SAT. TOLERATING CURRENT VENT SETTINGS. PATIENT CURRENTLY ON TELE MONITOR- READS 92 BPM AT THIS TIME SR. PATIENT ON TF GLUCERNA 1.2 AT 75 ML/HR TOLERATING WELL WITH NO RESIDUAL. PATIENT HAS BLADDER SCANS Q8HR- LAST WAS 1800 PER CARLEE HURTADO. PATIENT HAS A EYAL ML 1/2 NS @ 125 ML/HR. PATIENT NOT IN ANY APPARENT DISTRESS AT THIS TIME. SAFETY MEASURES IN PLACE: BED LOCKED AND IN LOWEST POSITION, CALL LIGHT WITHIN REACH, SIDE RAILS UP. HOB ELEVATED. WILL MONITOR PATIENT CLOSELY.
[2021-09-19 20:00] VITALS: BP 109/56
--- NOTE | 2021-09-19 20:29 | NUR ---
ATIVAN GIVEN D/T HR 153 BPM
[2021-09-19] MEDS: MORPHINE SULFATE INJ 2 MG/ML DISP.SYRIN IV PRN (21:07)
--- NOTE | 2021-09-19 21:10 | NUR ---
MORPHINE 2 MG GIVEN DT HR 153-160S. PATIENT SHAKING AND DIAPHORETIC. PATIENT TACHYPNEIC. BP 157/84. O2 100%. CHARGE NURSE AWARE.
--- NOTE | 2021-09-19 21:30 | NUR ---
RN NOTE PATIENT CONDOM CATH OUT- URINE LEAKAGE ONTO THE INCONTINENCE PADS. WILL MONITOR URINE OUTPUT. NEW CONDOM CATH PLACED.
[2021-09-19] MEDS: ATORVASTATIN 10 MG TABLET GT SCH (21:59)
[2021-09-19] MEDS: FAMOTIDINE (20 MG) 20 MG TABLET GT SCH (22:00)
[2021-09-19] MEDS: SENNOSIDES 8.6 MG TABLET GT SCH (22:00)
[2021-09-20] VITALS: BP 113/73
[2021-09-20] MEDS: IV 1/2NS 1000 ML 1,000 ML IV PRN ×3 (00:06→15:41)
[2021-09-20] MEDS: ALBUTEROL FS 2.5 MG/0.5 ML VIAL.NEB NEB SCH ×4 (01:23→20:18)
[2021-09-20] MEDS: IPRATROPIUM NEB FS 0.5 MG/2.5 ML AMPUL.NEB NEB SCH ×4 (01:23→20:18)
--- NOTE | 2021-09-20 02:15 | NUR ---
BLADDER SCANNED 207 ML SEEN. CONTINUE BLADDER SCAN Q8HR
[2021-09-20 04:00] VITALS: BP 117/71
[2021-09-20] MEDS: ZOSYN IVPB 3.375 G in IV D5W 50ml IV SCH ×4 (05:07→23:21)
[2021-09-20] MEDS: LORAZEPAM INJ 2 MG/ML VIAL IV PRN ×2 (05:14→18:36)
--- NOTE | 2021-09-20 05:15 | NUR ---
ativan given d/t hr 142 bpm patient diaphoretic and shaking.
[2021-09-20] MEDS: GLUCERNA 1.2 1,000 ML BOTTLE NG PRN ×2 (05:37→18:56)
--- NOTE | 2021-09-20 06:45 | NUR ---
RN CLOSING NOTE PATIENT IN BED, PATIENT IS OBTUNDED. PATIENT ON [facility] VENT WITH AC 16 TV 450 FIO2 40 AND PEEP 5. 100% O2 SAT. TOLERATING CURRENT VENT SETTINGS. PATIENT CURRENTLY ON TELE MONITOR- READS ST 125 BPM. PATIENT DIAPHORETIC. ATIVAN AND MORPHINE GIVEN TO MANAGE HIGH HR AND RESTLESSNESS. PATIENT ON TF GLUCERNA 1.2 AT 75 ML/HR TOLERATING WELL WITH NO RESIDUAL. PATIENT HAS BLADDER SCANS Q8HR. PATIENT HAS A EYAL ML 1/2 NS @ 125 ML/HR. PATIENT NOT IN ANY APPARENT DISTRESS AT THIS TIME. SAFETY MEASURES IN PLACE: BED LOCKED AND IN LOWEST POSITION, CALL LIGHT WITHIN REACH, SIDE RAILS UP. HOB ELEVATED. ALL NEEDS MET AND ATTENDED. ALL ORDERS CARRIED OUT. WILL ENDORSE TO DAY SHIFT NURSE FOR JENNY.
[2021-09-20] MEDS: MORPHINE SULFATE INJ 2 MG/ML DISP.SYRIN IV PRN (06:50)
--- NOTE | 2021-09-20 06:50 | NUR ---
RN NOTE MORPHINE GIVEN D/T HR 140S AND PATIENT DIAPHORETIC AND SHAKING. BP 114/64, O2 100%.
--- NOTE | 2021-09-20 07:20 | NUR ---
RN OPENING NOTES RECEIVED PATIENT IN BED, OBTUNDED. PATIENT ON [facility] VENT WITH AC 16 TV 450 FIO2 40 AND PEEP 5. 100% O2 SAT. TOLERATING CURRENT VENT SETTINGS. PATIENT CURRENTLY ON TELE MONITOR READING SR [address] BPM. G-TUIBE IN PLACE AND PATENT WITH GLUCERNA 1.2 AT 75 ML/HR. WILL CONTINUE BLADDER SCANS Q8HR. PATIENT HAS A R UA ML 1/2 NS @ 125 ML/HR. SAFETY MEASURES IN PLACE: BED LOCKED AND IN LOWEST POSITION, CALL LIGHT WITHIN REACH, SIDE RAILS UP. HOB ELEVATED. WILL CONTINUE TO MONITOR PATIENT.
[2021-09-20 07:25] LABS: CREATININE 1.2 mg/dL (0.6-1.3); POTASSIUM 5.2 mmol/L (3.5-5.1)
[2021-09-20 08:00] VITALS: BP 112/71
[2021-09-20] MEDS: ZINC SULFATE 220 MG CAPSULE GT SCH (08:45)
[2021-09-20] MEDS: MULTIVIT W/MINERALS 1 TAB TABLET GT SCH (08:45)
[2021-09-20] MEDS: CHLORHEXIDINE GLUCONATE 15 ML UDC MM SCH ×2 (08:45→21:49)
[2021-09-20] MEDS: METOPROLOL TARTRATE 25 MG TABLET GT SCH ×2 (08:46→17:11)
[2021-09-20] MEDS: FERROUS SULFATE (325 MG) 325 MG/TAB TABLET GT SCH (08:46)
[2021-09-20] MEDS: BACLOFEN (10 MG) 10 MG TABLET GT SCH ×3 (08:46→17:11)
[2021-09-20] MEDS: ASCORBIC ACID 500 MG TABLET GT SCH (08:46)
[2021-09-20] MEDS: PANTOPRAZOLE 40 MG TABLET.DR PO SCH (08:46)
[2021-09-20] MEDS: DOCUSATE SODIUM 100 MG CAPSULE PO SCH (08:46)
[2021-09-20] MEDS: LEVETIRACETAM SOL (5 ML) 100 MG/ML UDC GT SCH ×2 (08:47→21:49)
[2021-09-20] MEDS: AMLODIPINE BESYLATE 5 MG TABLET GT SCH (08:47)
[2021-09-20] MEDS: VALPROIC ACID 250 MG/5 ML UDC GT SCH ×2 (08:47→21:49)
[2021-09-20] MEDS: ENOXAPARIN SODIUM 40 MG/0.4 ML DISP.SYRIN SQ SCH (08:49)
[2021-09-20] MEDS: GENTAMICIN 160 MG in IV D5W 100 ML IV SCH (10:01)
--- NOTE | 2021-09-20 10:30 | NUR ---
RN NOTES BLADDER SCAN PERFORMED, 140 ML TOTAL IN BLADDER. SOFT AND NON-TENDER ABDOMEN. EXTERNAL CATHETER IN PLACE WITH YELLOW URINE DRAINING IN BAG.
[2021-09-20] MEDS: PROSOURCE / PROSTAT (PYXIS) 30 ML UDC GT SCH (11:05)
[2021-09-20] MEDS: THERAHONEY GEL 1.5 OZ TUBE TP SCH (11:05)
[2021-09-20 12:00] VITALS: BP 93/45
[2021-09-20] MEDS: FLUCONAZOLE (100 MG) 100 MG TABLET PO SCH (13:32)
[2021-09-20] MEDS ORDERED: GENTAMICIN 120 MG in IV D5W 100 ML IV SCH (15:00)
[2021-09-20 16:00] VITALS: BP 108/50
--- NOTE | 2021-09-20 18:25 | NUR ---
RN NOTES BLADDER SCAN PERFORMED, 125 ML TOTAL IN BLADDER. SOFT AND NON-TENDER ABDOMEN. EXTERNAL CATHETER IN PLACE WITH YELLOW URINE DRAINING IN BAG.
--- NOTE | 2021-09-20 18:50 | NUR ---
RN CLOSING NOTES PATIENT IN BED, OBTUNDED. PATIENT ON [facility] VENT WITH AC 16 TV 450 FIO2 40 AND PEEP 5. 100% O2 SAT. TOLERATING CURRENT VENT SETTINGS. PATIENT CURRENTLY ON TELE MONITOR READING SR 92 BPM. G-TUBE IN PLACE AND PATENT WITH GLUCERNA 1.2 AT 75 ML/HR, PATIENT IS TOLERATING FEEDING WELL. BLADDER SCANS Q8HR, REPORT ANYTHING >300ML . PATIENT HAS A R UA ML 1/2 NS @ 125 ML/HR. ALL ORDERS CARRIED OUT. PATIENT REMAINED AFEBRILE DURING SHIFT. SAFETY MEASURES IN PLACE: BED LOCKED AND IN LOWEST POSITION, CALL LIGHT WITHIN REACH, SIDE RAILS UP X2. HOB ELEVATED. WILL ENDORSE TO THE WOODWINDS TEACHER NURSE FOR JENNY
--- NOTE | 2021-09-20 19:25 | NUR ---
RN NOTE PT RECEIVED IN BED. PT IS TRACH/VENT WITH SETTINGS AT AC:16, TV:450, FIO2: 40%, AND PEEP OF 5. PT TOLERATING CURRENT SETTINGS WELL WITH OXYGEN SATURATION >98%. PT IS OBTUNDED, NON-VERBAL. ON EDITING CLERK CURRENTLY SHOWING NSR. CONDOM CATH NOTED DRAINING YELLOW COLORED URINE. G-TUBE INTACT AND PATENT RUNNING GLUCERNA 1.2 AT 75 CC/HR. PT TOLERATING WELL. IV ACCESS NOTED ON RIGHT UPPER ARM ML RUNNING 1/2 NS AT 125CC/HR. ALL SAFETY MEASURES IMPLEMENTED. WILL CONTINUE TO MONITOR AND ASSESS FOR ANY CHANGES DURING SHIFT.
[2021-09-20 20:00] VITALS: BP 106/68
[2021-09-20] MEDS: FAMOTIDINE (20 MG) 20 MG TABLET GT SCH (21:49)
[2021-09-20] MEDS: SENNOSIDES 8.6 MG TABLET GT SCH (21:49)
[2021-09-20] MEDS: ATORVASTATIN 10 MG TABLET GT SCH (21:49)
[2021-09-21] VITALS: BP 123/73
[2021-09-21] MEDS: IV 1/2NS 1000 ML 1,000 ML IV PRN ×2 (01:31→10:33)
[2021-09-21] MEDS: IPRATROPIUM NEB FS 0.5 MG/2.5 ML AMPUL.NEB NEB SCH ×3 (01:49→13:50)
[2021-09-21] MEDS: ALBUTEROL FS 2.5 MG/0.5 ML VIAL.NEB NEB SCH ×3 (01:49→13:50)
[2021-09-21 04:00] VITALS: BP 115/66
[2021-09-21] MEDS: ZOSYN IVPB 3.375 G in IV D5W 50ml IV SCH ×3 (06:05→18:04)
--- NOTE | 2021-09-21 06:39 | NUR ---
RN NOTE NO CHANGES IN PT CONDITION DURING SHIFT. PT IS TRACH/VENT WITH SETTINGS AT AC:16, TV:450, FIO2: 40%, AND PEEP OF 5. PT TOLERATING CURRENT SETTINGS WELL WITH OXYGEN SATURATION >98%. PT IS OBTUNDED, NON-VERBAL. ON CARE PROCESS MANAGER CURRENTLY SHOWING NSR. CONDOM CATH NOTED DRAINING YELLOW COLORED URINE. G-TUBE INTACT AND PATENT RUNNING GLUCERNA 1.2 AT 75 CC/HR. PT TOLERATING WELL. IV ACCESS NOTED ON RIGHT UPPER ARM ML RUNNING 1/2 NS AT 125CC/HR. PT KEPT CLEAN AND COMFORTABLE. ALL DUE MEDS GIVEN ORDERED. ALL SAFETY MEASURES IMPLEMENTED. WILL ENDORSE TO MORNING SHIFT RN FOR JENNY.
[2021-09-21 06:48] LABS: BASOPHILS % (AUTO) 0.2 % (0.0-2.0); EOSINOPHILS % (AUTO) 1.6 % (0.0-6.0); HEMATOCRIT 35 % (39-51); HEMOGLOBIN 11.3 g/dL (13.5-17.5); LYMPHOCYTES # (AUTO) 2.9 K/uL (0.8-4.8); LYMPHOCYTES % (AUTO) 24.1 % (20.0-44.0); MEAN CORPUSCULAR HGB CONC 32 g/dl (31.0-36.0); MEAN CORPUSCULAR VOLUME 98 fL (80-96); MONOCYTES # (AUTO) 0.8 K/uL (0.1-1.30); MONOCYTES % (AUTO) 6.8 % (2.0-12.0); NEUTROPHILS # (AUTO) 8.1 K/uL (1.8-8.9); NEUTROPHILS % (AUTO) 67.3 % (43.0-81.0); PLATELET COUNT (AUTO) 151 K/uL (150-450); RED BLOOD CELL COUNT(AUTO) 3.57 MIL/uL (4.5-6.0); WHITE BLOOD COUNT (AUTO) 12.1 K/uL (4.3-11.0)
--- NOTE | 2021-09-21 07:36 | NUR ---
RN OPENING NOTE PATIENT RECEIVED IN BED, OBTUNDED, EYES OPEN. PATIENT ON MECHANICAL VENTILATOR WITH FIO2 40% AND SATURATING 100% OF BEDSIDE MONITOR. CONDOM CATH IN PLACE, DRAINING CLEAR URINE. G TUBE IN PLACE RUNNING GLUCERNA 1.2 AT 75 CC/HR. RIGHT UA MIDLINE IN PLACE RUNNING 1/2 NS AT 125 CC/HR. NO SIGNS OF ACUTE DISTRESS NOTED, WILL MONITOR FOR SEIZURE ACTIVITY, NONE REPORTED OVERNIGHT BY CANAL TENDER. BED LOCKED AND IN LOWEST POSITION, CALL LIGHT WITHIN REACH, 2 SIDE RAILS UP. WILL CONTINUE TO MONITOR.
[2021-09-21 07:46] LABS: CALCIUM, SERUM 9.4 mg/dL (8.5-10.1); CREATININE 1.1 mg/dL (0.6-1.3); MAGNESIUM 2.3 mg/dL (1.8-2.4); POTASSIUM 4.3 mmol/L (3.5-5.1)
[2021-09-21] MEDS: LORAZEPAM INJ 2 MG/ML VIAL IV PRN ×3 (07:49→19:06)
[2021-09-21 08:00] VITALS: BP 111/73
[2021-09-21] MEDS: LEVETIRACETAM SOL (5 ML) 100 MG/ML UDC GT SCH (08:21)
[2021-09-21] MEDS: VALPROIC ACID 250 MG/5 ML UDC GT SCH (08:21)
[2021-09-21] MEDS: CHLORHEXIDINE GLUCONATE 15 ML UDC MM SCH (08:21)
[2021-09-21] MEDS: FERROUS SULFATE (325 MG) 325 MG/TAB TABLET GT SCH (08:21)
[2021-09-21] MEDS: PANTOPRAZOLE 40 MG TABLET.DR PO SCH (08:21)
[2021-09-21] MEDS: ASCORBIC ACID 500 MG TABLET GT SCH (08:22)
[2021-09-21] MEDS: METOPROLOL TARTRATE 25 MG TABLET GT SCH ×2 (08:22→16:31)
[2021-09-21] MEDS: DOCUSATE SODIUM 100 MG CAPSULE PO SCH (08:22)
[2021-09-21] MEDS: FLUCONAZOLE (100 MG) 100 MG TABLET PO SCH (08:22)
[2021-09-21] MEDS: ZINC SULFATE 220 MG CAPSULE GT SCH (08:22)
[2021-09-21] MEDS: AMLODIPINE BESYLATE 5 MG TABLET GT SCH (08:22)
[2021-09-21] MEDS: MULTIVIT W/MINERALS 1 TAB TABLET GT SCH (08:22)
[2021-09-21] MEDS: BACLOFEN (10 MG) 10 MG TABLET GT SCH ×3 (08:22→16:31)
[2021-09-21] MEDS: ENOXAPARIN SODIUM 40 MG/0.4 ML DISP.SYRIN SQ SCH (08:23)
[2021-09-21] MEDS: THERAHONEY GEL 1.5 OZ TUBE TP SCH (08:24)
[2021-09-21] MEDS: PROSOURCE / PROSTAT (PYXIS) 30 ML UDC GT SCH (08:25)
[2021-09-21] MEDS: GLUCERNA 1.2 1,000 ML BOTTLE NG PRN (11:13)
[2021-09-21 12:00] VITALS: BP 111/70
[2021-09-21] MEDS ORDERED: FLUC100T8 GT (15:19)
[2021-09-21] MEDS ORDERED: COLL30OI TP (15:19)
[2021-09-21 16:00] VITALS: BP 105/74
[2021-09-21] MEDS ORDERED: GENTAMICIN 120 MG in IV D5W 100 ML IV SCH (16:00)
[2021-09-21 16:31] VITALS: BP 105/74
--- NOTE | 2021-09-21 18:33 | NUR ---
RN CLOSING NOTE PATIENT REMAINS IN BED, OBTUNDED, EYES OPEN. PATIENT ON MECHANICAL VENTILATOR WITH FIO2 40% AND SATURATING 100% OF BEDSIDE MONITOR. G TUBE IN PLACE RUNNING GLUCERNA 1.2 AT 75 CC/HR. RIGHT UA MIDLINE IN PLACE RUNNING 1/2 NS AT 125 CC/HR. NO SIGNS OF ACUTE DISTRESS NOTED, WILL MONITOR FOR SEIZURE ACTIVITY, REPORT GIVEN TO DI AT [facility], AWAITING FOR AMBULANCE RAIL DIRECTOR FOR DISCHARGED ORDER. BED LOCKED AND IN LOWEST POSITION, CALL LIGHT WITHIN REACH, 2 SIDE RAILS UP. WILL ENDORSE TO FLOWERS SALESPERSON NURSE.
--- NOTE | 2021-09-21 19:18 | NUR ---
RN NOTE PATIENT DISCHARGED ORDERED. PATIENT PICKED UP BY AMBULANCE CREW, MEDICALLY STABLE AT THIS TIME. REPORT GIVEN TO DI BEJARANO AT FACILITY.
== END 2021-09-21 19:25 | DRG 720 ==
LOC: ER 17:21 → TELE1 20:47 → ICU 09-15 08:58 → TELE-TD 09-16 09:45 → TELE1 09-17 11:02
PROVIDERS: ADMIT Student in an Organized Health Care Education/Training Program; ATTEND Nurse Practitioner Acute Care
PROC: 5A1955Z Respiratory Ventilation, Greater than 96 Consecutive Hours (ICD-10-PCS; principal; 2021-09-14)
PROC: 05HB33Z Insertion of Infusion Device into Right Basilic Vein, Percutaneous Approach (ICD-10-PCS; 2021-09-14)
DX: A41.9 Sepsis, unspecified organism (principal); N17.0 Acute kidney failure with tubular necrosis; J96.21 Acute and chronic respiratory failure with hypoxia; G93.41 Metabolic encephalopathy; E43 Unspecified severe protein-calorie malnutrition; L89.154 Pressure ulcer of sacral region, stage 4; R53.2 Functional quadriplegia; D68.59 Other primary thrombophilia; E87.2 Acidosis; Z99.11 Dependence on respirator [ventilator] status; Z93.0 Tracheostomy status; D63.8 Anemia in other chronic diseases classified elsewhere; E87.0 Hyperosmolality and hypernatremia; E88.09 Other disorders of plasma-protein metabolism, not elsewhere classified; F29 Unspecified psychosis not due to a substance or known physiological condition; E44.0 Moderate protein-calorie malnutrition; E86.0 Dehydration; E11.9 Type 2 diabetes mellitus without complications; I10 Essential (primary) hypertension; I25.10 Atherosclerotic heart disease of native coronary artery without angina pectoris; K21.9 Gastro-esophageal reflux disease without esophagitis; F32.A Depression, unspecified; E78.5 Hyperlipidemia, unspecified; Z79.01 Long term (current) use of anticoagulants; Z79.4 Long term (current) use of insulin; Z79.51 Long term (current) use of inhaled steroids; Z79.899 Other long term (current) drug therapy; E87.5 Hyperkalemia; G40.909 Epilepsy, unspecified, not intractable, without status epilepticus; Z93.1 Gastrostomy status; R13.10 Dysphagia, unspecified; J44.9 Chronic obstructive pulmonary disease, unspecified; Z86.73 Personal history of transient ischemic attack (TIA), and cerebral infarction without residual deficits; Z16.35 Resistance to multiple antimicrobial drugs; N40.0 Benign prostatic hyperplasia without lower urinary tract symptoms; E86.1 Hypovolemia; B96.89 Other specified bacterial agents as the cause of diseases classified elsewhere; B37.49 Other urogenital candidiasis; Z98.2 Presence of cerebrospinal fluid drainage device; Z86.79 Personal history of other diseases of the circulatory system; Z20.822 Contact with and (suspected) exposure to COVID-19
CPT/HCPCS: 31720; 36410; 36415; 36600; 71045-TC; 80048-TC; 80076-TC; 80170-TC; 81001; 82803-TC; 82962-TC; 83605-TC; 83735-TC; 84100-TC; 85025-TC; 85730-TC; 87040-TC; 87081-TC; 87086-TC; 94002-TC; 94003-TC; 94760-TC; 94799-TC; A4349; A4623; A6253; A6403; A7526; C9803; G0378; J1170; J1580; J1650; J1953; J2060; J2270; J2543; J3490; J7030; J7050; J7060

== ENCOUNTER 2021-10-03 08:16 | Inpatient (IN) | payer MEDICAID ==
[2021-10-03] VITALS (16 sets, daily range): BP systolic 102–159; BP diastolic 54–97
[~2021-10-03] VITALS: Ht 175.3 cm; Wt 74.8 kg
[~2021-10-03 08:16] MED LIST changes: +COLL30OI TP; +CRAN3875 GT; -CRAN3875 PO; +FLUC100T8 GT; -LINE600T12 GT; -RXGEN XX
--- NOTE | 2021-10-03 08:16 | NUR ---
ARTIS LENNON FROM SN[facility] ([facility]) FOR POSSIBLE SEIZURE PER STAFF AND SOB. PT HAS A FEEVER OF 103.9 UPON ARRIVAL, DIAPHORETIC. HAS A PICC LINE IN PLACE R FEMORAL, G TUBE. PRESSURE WOUND ON SACRUM. PT ATTCHED TO MONITOR. RT AT BEDSIDE. DR CLINE AT BEDSIDE. VENT SETTINGS cURRENT MODE: A/C VC TIDAL VOLUME: 450 FIO2: 80 RATE: 16 FLOW: 27 PEEP: 5 PMAX: 60
[2021-10-03] MEDS ORDERED: ACETAMINOPHEN 650 MG/SUPP.RECT RC ONE ×2 (08:25→10:00)
[2021-10-03] MEDS ORDERED: VANCOMYCIN 1 GM in IV D5W 250 ML IV ONE (08:30)
[2021-10-03] MEDS ORDERED: CEFEPIME 1 GM in IV D5W 50 ML IV ONE (08:30)
[2021-10-03] MEDS ORDERED: IV NS 0.9% 500 ML BAG IV ONE ×2 (08:30→10:00)
[2021-10-03] MEDS ORDERED: KETOROLAC TROMETHAMINE 15 MG/ML VIAL ONE (08:47)
[2021-10-03 08:48] LABS: BASOPHILS # (AUTO) 0.1 K/uL (0.0-0.2); BASOPHILS % (AUTO) 0.4 % (0.0-2.0); EOSINOPHILS % (AUTO) 0.4 % (0.0-6.0); HEMATOCRIT 36 % (39-51); HEMOGLOBIN 11.1 g/dL (13.5-17.5); LYMPHOCYTES # (AUTO) 3.7 K/uL (0.8-4.8); MEAN CORPUSCULAR HGB CONC 31 g/dl (31.0-36.0); MEAN CORPUSCULAR VOLUME 98 fL (80-96); MONOCYTES % (AUTO) 7.6 % (2.0-12.0); NEUTROPHILS # (AUTO) 20.3 K/uL (1.8-8.9); NEUTROPHILS % (AUTO) 77.6 % (43.0-81.0); PLATELET COUNT (AUTO) 472 K/uL (150-450); RED BLOOD CELL COUNT(AUTO) 3.62 MIL/uL (4.5-6.0); WHITE BLOOD COUNT (AUTO) 26.1 K/uL (4.3-11.0)
[2021-10-03] MEDS ORDERED: LORAZEPAM INJ 2 MG/ML VIAL ONE ×2 (08:48→09:54)
[2021-10-03 08:58] LABS: ABG PH 7.459 (7.350-7.450); ABG PO2 474.4 mmHg (75.0-100.0); COHb 0.3 % (0.5-1.5); MetHb 0.5 % (0.0-1.5); O2Hb 99.1 % (94.0-97.0); SITE, ABG Left Femoral
[2021-10-03] MEDS ORDERED: LEVETIRACETAM (500MG) 1,000 MG in IV NS 0.9% 100 ML IV SCH (09:00)
[2021-10-03] MEDS ORDERED: LORAZEPAM INJ 2 MG/ML VIAL IV ONE ×3 (09:00→10:00)
[2021-10-03] MEDS ORDERED: KETOROLAC TROMETHAMINE INJ 30 MG/ML VIAL IV ONE (09:00)
[2021-10-03] MEDS ORDERED: IV NS 0.9% 1,000 ML BAG IV ONE (09:00)
--- NOTE | 2021-10-03 09:12 | NUR ---
YECENIA TEST COLLECED AND SENT
[2021-10-03 09:21] LABS: ALANINE AMINOTRANSFERASE 25 U/L (12-78); ALKALINE PHOSPHATASE 130 U/L (46-116); ASPARTATE AMINOTRANSFERASE 32 U/L (15-37); BILIRUBIN,DIRECT 0.1 mg/dL (0.0-0.2); BILIRUBIN,TOTAL 0.2 mg/dL (0.2-1.0); CALCIUM, SERUM 11.4 mg/dL (8.5-10.1); CARBON DIOXIDE 23 mmol/L (21-32); CHLORIDE 98 mmol/L (98-107); GLUCOSE 114 mg/dL (74-106); POTASSIUM 4.8 mmol/L (3.5-5.1); SODIUM SERUM 140 mmol/L (136-145); TOTAL PROTEIN, SERUM 10.2 g/dL (6.4-8.2); UREA NITROGEN, BLOOD 24 mg/dL (7-18)
--- NOTE | 2021-10-03 09:26 | NUR ---
CALLED FACILITY THEY STATED THE PT BLOOD PRESSURE BASELINE IS 100/60
--- NOTE | 2021-10-03 10:05 | NUR ---
PAGED CRYSTAL MATHIAS
[2021-10-03] MEDS ORDERED: DIVA125C2 GT (10:06)
[2021-10-03] MEDS ORDERED: ACET-868 GT (10:06)
[2021-10-03] MEDS ORDERED: NUTR1PAC14 GT (10:06)
[2021-10-03] MEDS ORDERED: PANT40SU2 GT (10:06)
[2021-10-03] MEDS ORDERED: LEVE500T9 GT (10:06)
[2021-10-03] MEDS ORDERED: IPRA12.9 IH ×2 (10:06)
[2021-10-03] MEDS ORDERED: LORA2VIA6 IM (10:06)
[2021-10-03] MEDS ORDERED: ALBU8.5H8 IH ×2 (10:06)
[2021-10-03] MEDS ORDERED: FERR300L GT (10:06)
[2021-10-03] MEDS ORDERED: CEFE2VIA3 IV (10:06)
--- NOTE | 2021-10-03 10:16 | NUR ---
WOUND CULTURE COLLECTED AND SENT
[2021-10-03] MEDS ORDERED: Z GUARD REMEDY 4 OZ OINT TP PRN (11:00)
[2021-10-03] MEDS ORDERED: ALBUTEROL FS 2.5 MG/3 ML VIAL.NEB NEB PRN (11:00)
[2021-10-03] MEDS ORDERED: MAG HYDROX/AL HYDROX/SIMETH 30 ML UDC PO PRN (11:00)
[2021-10-03] MEDS ORDERED: BISACODYL SUPP (10 MG) 10 MG/SUPP.RECT SUPP.RECT RC PRN (11:00)
[2021-10-03] MEDS ORDERED: ACETAMINOPHEN 650 MG/SUPP.RECT RC PRN (11:00)
[2021-10-03] MEDS ORDERED: NA PHOS,M-B/NA PHOS,DI-BA 1 EA ENEMA RC PRN (11:00)
[2021-10-03] MEDS ORDERED: MAGNESIUM HYDROXIDE 30 ML UDC GT PRN (11:00)
[2021-10-03] MEDS: IV NS 0.9% 1,000 ML IV PRN ×2 (11:12→20:36)
[2021-10-03] MEDS ORDERED: NORMAL SALINE FLUSH 10 ML SYR ONE (11:16)
[2021-10-03] MEDS ORDERED: PANTOPRAZOLE 40 MG VIAL ONE (11:16)
[2021-10-03] MEDS: PANTOPRAZOLE 40 MG VIAL IV SCH (11:22)
[2021-10-03] MEDS ORDERED: BACLOFEN (10 MG) 10 MG TABLET ONE (12:19)
[2021-10-03] MEDS: BLOOD SUGAR DIAGNOSTIC 1 EACH STRIP IN SCH ×2 (12:33→17:36)
[2021-10-03] MEDS: BACLOFEN (10 MG) 10 MG TABLET GT SCH ×2 (12:33→21:06)
--- NOTE | 2021-10-03 12:46 | NUR ---
bed given icu 259
--- NOTE | 2021-10-03 13:00 | NUR ---
REPORT GIVEN TO JUAN M FOR JENNY
--- NOTE | 2021-10-03 13:23 | NUR ---
RN NOTES RECEIVED PT IN ROOM 259 ICU BED, PT IS TRACH/ VENT DEPENDENT, TOLERATING VENT SETTING WELL, O2 SAT WNL, NONVERBAL , DOES NOT FOLLOW COMMAND, ON TELE ST, HR IN 130'S , DIAPHORETIC HEAD TO TOE, T=99.7 AXILLERY , GT CLAMPED AT THIS TIME, R FEMORAL TLC , IV SITE , CLEAN,DRY AND INTACT, NS AT 100CC/HR RUNNING , SKIN WOUND PHOTO TAKEN AND PLACED IN THE CHART, SR UP X3, CALL LIGHT WITHIN EASY REACH, BED LOCKED AND IN LOWEST POSITION, CONTINUE TO MONITOR.
--- NOTE | 2021-10-03 13:28 | NUR ---
pt transported to icu with acls protocol in place accompanied by rt
[2021-10-03] MEDS: METOPROLOL TARTRATE 25 MG TABLET GT SCH (16:26)
[2021-10-03 16:56] LABS: BILIRUBIN,URINE NEGATIVE (NEGATIVE); COLOR,URINE YELLOW (YELLOW); LEUKOCYTE ESTERASE ,URINE SMALL (NEGATIVE); NITRITE, URINE NEGATIVE (NEGATIVE); PH,URINE 5.5 (5.0-8.0); PROTEIN,URINE 100 mg/dl (NEGATIVE); UGLUCOSE NEGATIVE (NEGATIVE); UROBILINOGEN,URINE 0.2 EU/dL (0.2)
[2021-10-03] MEDS: DIVALPROEX SODIUM 125 MG CAP.SPRINK GT SCH (17:00)
[2021-10-03] MEDS ORDERED: DIVALPROEX SODIUM 125 MG CAP.SPRINK PO ONE (17:00)
[2021-10-03] MEDS ORDERED: DIVALPROEX SODIUM 125 MG CAP.SPRINK GT SCH (17:00)
[2021-10-03] MEDS: ASCORBIC ACID 500 MG TABLET GT SCH (17:08)
[2021-10-03] MEDS: GLUCERNA 1.2 1,000 ML BOTTLE NG PRN (17:26)
--- NOTE | 2021-10-03 18:12 | NUR ---
RN NOTES NO SZ ACTIVITES NOTED, TRACH SUCTIONING DONE , NO DISTRESS NOTED, SR UP x3, CALL LIGHT WITHIN EASY REACH, BED LOCKED AND IN LOWEST POSITION , WILL ENDORSE TO GUN REPAIR CLERK NURSE FOR CONTINUITY OF CARE
[2021-10-03] MEDS: ARGININE/GLUTAMINE/CALCIUM BMB 1 EACH POWD.PACK GT SCH (18:19)
[2021-10-03 19:41] LABS: BACTERIA,URINE MANY /HPF (None Seen); RBC,URINE 50-100 /HPF (0-2); WBC,URINE 25-50 /HPF (0-3)
[2021-10-03 19:42] LABS: CALCIUM CARBONATE CRYSTALS,UR None Seen /HPF (None Seen); CALCIUM OXALATE CRYSTALS,UR None Seen /HPF (None Seen); CALCIUM PHOSPHATE CRYSTALS,UR None Seen /HPF (None Seen); COARSE GRANULAR CASTS,URINE 5 /LPF (None Seen); CYSTINE CRYSTALS,URINE None Seen /HPF (None Seen); FATTY CASTS,URINE None Seen /LPF (None Seen); FINE GRANULAR CASTS,URINE None Seen /LPF (None Seen); HYALINE CASTS, URINE None Seen /LPF (None Seen); MUCUS,URINE None Seen /LPF (None Seen); OTHER CRYSTALS,URINE None Seen /HPF (None Seen); RED BLOOD CELL CASTS,URINE None Seen /LPF (None Seen); SPERM,URINE None Seen /HPF (None Seen); SQUAMOUS EPITHELIAL CELL,UR FEW /HPF (None Seen); TRICHOMONAS,URINE None Seen /HPF (None Seen); TRIPLE PHOSPHATE CRYSTAL,UR None Seen /HPF (None Seen); TYROSINE CRYSTAL,URINE None seen /HPF (None Seen); URIC ACID CRYSTALS,URINE None Seen /HPF (None Seen); URINE AMORPHOUS PHOSPHATES None Seen /HPF (None Seen); URINE AMORPHOUS URATE None Seen /HPF (None Seen); WAXY CASTS,URINE None Seen /LPF (None Seen); YEAST,URINE None Seen /HPF (None Seen)
--- NOTE | 2021-10-03 20:00 | NUR ---
ICU NOTES Received patient obtunded responsive to painful stimuli.DX: SEPSIS.SZ,Possible Aspiratuion.With trach to vent on AC mode.Vent settings well tolerated.SR 83'S.Vital signs stable.Patient gt feeding in progress with HOB elevated.No residual noted.Condom cath in place to gravity.IVF infusing via RF TLC site intact.No acute distress noted.Turned and repositioned.Continue monitoring.
[2021-10-03] MEDS: CEFEPIME 1 GM in IV D5W 50 ML IV SCH (20:36)
[2021-10-03] MEDS ORDERED: LEVETIRACETAM SOL (5 ML) 100 MG/ML UDC GT SCH (21:00)
[2021-10-03] MEDS: SENNOSIDES 8.6 MG TABLET GT SCH (21:06)
[2021-10-03] MEDS: CHLORHEXIDINE GLUCONATE 15 ML UDC MM SCH (21:06)
[2021-10-03] MEDS: ATORVASTATIN 10 MG TABLET GT SCH (21:06)
[2021-10-03] MEDS: LINEZOLID RTU BAG 600 MG in PREMIX 1 EA IV SCH (21:07)
[2021-10-03] MEDS: HEPARIN SODIUM, PORCINE 5000 UNITS/1 ML VIAL SQ SCH (21:09)
[2021-10-03] MEDS: MORPHINE SULFATE INJ 2 MG/ML DISP.SYRIN IV PRN (21:56)
--- NOTE | 2021-10-03 22:30 | NUR ---
ICU NOTES Patient tachypniec RR 30's-40's.Morphine administered noted to be effective.
[2021-10-03] MEDS: LEVETIRACETAM (500MG) 1,500 MG in IV NS 0.9% 100 ML IV SCH (23:08)
[2021-10-04] VITALS (15 sets, daily range): BP systolic 82–178; BP diastolic 46–149
[2021-10-04] MEDS: BLOOD SUGAR DIAGNOSTIC 1 EACH STRIP IN SCH ×6 (01:10→18:07)
[2021-10-04] MEDS: MORPHINE SULFATE INJ 2 MG/ML DISP.SYRIN IV PRN (02:36)
[2021-10-04 04:26] LABS: BASOPHILS # (AUTO) 0.1 K/uL (0.0-0.2); BASOPHILS % (AUTO) 0.4 % (0.0-2.0); EOSINOPHILS % (AUTO) 0.4 % (0.0-6.0); HEMATOCRIT 30 % (39-51); HEMOGLOBIN 9.3 g/dL (13.5-17.5); LYMPHOCYTES # (AUTO) 2.4 K/uL (0.8-4.8); LYMPHOCYTES % (AUTO) 15.1 % (20.0-44.0); MEAN CORPUSCULAR HGB CONC 31 g/dl (31.0-36.0); MEAN CORPUSCULAR VOLUME 99 fL (80-96); MONOCYTES # (AUTO) 1.4 K/uL (0.1-1.30); NEUTROPHILS # (AUTO) 11.8 K/uL (1.8-8.9); NEUTROPHILS % (AUTO) 75.1 % (43.0-81.0); PLATELET COUNT (AUTO) 351 K/uL (150-450); RED BLOOD CELL COUNT(AUTO) 3.02 MIL/uL (4.5-6.0); WHITE BLOOD COUNT (AUTO) 15.7 K/uL (4.3-11.0)
[2021-10-04 04:41] LABS: CALCIUM, SERUM 9.9 mg/dL (8.5-10.1); CREATININE 1.4 mg/dL (0.6-1.3); MAGNESIUM 2.5 mg/dL (1.8-2.4); PHOSPHORUS 4.2 mg/dL (2.5-4.9); POTASSIUM 5.1 mmol/L (3.5-5.1)
[2021-10-04] MEDS: BACLOFEN (10 MG) 10 MG TABLET GT SCH ×3 (05:17→20:44)
[2021-10-04] MEDS: HYDROCODONE/APAP 5/325MG TABLET GT PRN (05:23)
--- NOTE | 2021-10-04 07:00 | NUR ---
ICU NOTES Patient resting in no acute distress.ST 103-105.Tolerating vent settings.Tolerating gt feeding. Received 2 doses of morphine and 1 norco for agitation.No seizure activity noted.Diaporethic. Kept clean and dry.Bed bath rendered complete linens changed.Turned and repositioned.Report given to Romulo for JENNY.
--- NOTE | 2021-10-04 07:02 | NUR ---
WOUND CARE CONSULT: PT UNSTABLE AT THIS TIME TO BE TURNED FOR SKIN ASSESSMENT. REVIEWED CHART, NURSING DOCUMENTATION AND PHOTOS WHICH INDICATE LOWER EXTREMITY WOUNDS/SCABS AND SACRAL STAGE 4 PRESSURE ULCER WITH SURROUNDING SCARRING, PRESENT ON ADMISSION. DR GALAVIZ AND DR FAM TO BE NOTIFIED THIS AM OF SURGICAL AND DPM CONSULT REQUESTS. DISCUSSED SKIN PROTECTION WITH NURSING STAFF. FIRST STEP LOW AIRLOSS MATTRESS IS ON ORDER. MD IN AGREEMENT WITH PLAN OF CARE.
--- NOTE | 2021-10-04 07:30 | NUR ---
RN OPENING NOTE PT OBSERVED IN BED WITH HOB >30 DEGREES. PT IS ON MECHANICAL VENT WITH ALL PRESCRIBED SAT 100%. PT IS OBTUNDED A/OX1. GTUBE IS IN PLACE INFUSING WITH TF @75ML/HR. FC IS IN PLACE DRAINING URINE TO GRAVITY. IV ACCESS R FEM LINE 3 LUMEN INFUSING WITH NS @ 100ML/HR. BED IS LOCKED IN LOWEST POSITION ALL HOSPITAL PRECAUTIONS ARE IN PLACE WILL CONTINUE TO MONITOR THIS SHIFT.
[2021-10-04] MEDS: LORAZEPAM INJ 2 MG/ML VIAL IV PRN (08:57)
[2021-10-04] MEDS ORDERED: VANCOMYCIN 1.25 GM in IV D5W 250 ML IV SCH (09:00)
[2021-10-04] MEDS ORDERED: PANTOPRAZOLE 40 MG/PACK PACK GT SCH (09:00)
[2021-10-04] MEDS: CEFEPIME 1 GM in IV D5W 50 ML IV SCH (09:13)
[2021-10-04] MEDS: PROSOURCE / PROSTAT (PYXIS) 30 ML UDC GT SCH (09:28)
[2021-10-04] MEDS: LINEZOLID RTU BAG 600 MG in PREMIX 1 EA IV SCH ×2 (09:28→20:44)
[2021-10-04] MEDS: DIVALPROEX SODIUM 125 MG CAP.SPRINK GT SCH ×2 (09:29→17:58)
[2021-10-04] MEDS: LEVETIRACETAM (500MG) 1,500 MG in IV NS 0.9% 100 ML IV SCH ×2 (09:29→20:44)
[2021-10-04] MEDS: FERROUS SULFATE UDC 300 MG/5 ML UDC GT SCH (09:30)
[2021-10-04] MEDS: MULTIVITAMINS,THERAGRAN 1 UDTAB TABLET GT SCH (09:30)
[2021-10-04] MEDS: CHLORHEXIDINE GLUCONATE 15 ML UDC MM SCH ×2 (09:30→20:42)
[2021-10-04] MEDS: ZINC SULFATE 220 MG CAPSULE GT SCH (09:30)
[2021-10-04] MEDS: DOCUSATE SODIUM 100 MG CAPSULE PO SCH (09:30)
[2021-10-04] MEDS: PANTOPRAZOLE 40 MG VIAL IV SCH (09:30)
[2021-10-04] MEDS: METOPROLOL TARTRATE 25 MG TABLET GT SCH ×2 (09:31→17:57)
[2021-10-04] MEDS: AMLODIPINE BESYLATE 5 MG TABLET GT SCH (09:31)
[2021-10-04] MEDS: HEPARIN SODIUM, PORCINE 5000 UNITS/1 ML VIAL SQ SCH ×2 (09:37→20:47)
[2021-10-04] MEDS: ARGININE/GLUTAMINE/CALCIUM BMB 1 EACH POWD.PACK GT SCH ×2 (09:48→18:06)
[2021-10-04] MEDS: GLUCERNA 1.2 1,000 ML BOTTLE NG PRN (09:48)
[2021-10-04] MEDS: IV NS 0.9% 1,000 ML IV PRN (09:48)
[2021-10-04] MEDS: IV NS 0.9% 250 ML IV PRN (09:50)
[2021-10-04] MEDS: ACETAMINOPHEN 650 MG/20.3 ML UDC PEG PRN (09:55)
--- NOTE | 2021-10-04 10:40 | NUR ---
RN NOTE: TRANSFER TO [facility] PT TRANSFERRED TO [facility]. REPORT GIVEN AT BEDSIDE TO CARLEE DUNN. PT IS STABLE AT THIS TIME. ALL MEDICATIONS AND BELONGINGS GIVEN TO RN.
[2021-10-04] MEDS: DEXTROSE 50%-WATER 50 ML DISP.SYRIN IV PRN (11:14)
[2021-10-04] MEDS ORDERED: LORAZEPAM INJ 2 MG/ML VIAL IV ONE (11:30)
--- NOTE | 2021-10-04 12:46 | NUR ---
RN NOTE ACCIDENTALLY ORDERED [facility] CONSULT AND WRIST RESTRAINT ON THIS PATIENT. WAS MEANT FOR ANOTHER PATIENT.
[2021-10-04] MEDS: ZOSYN IVPB 4.5 G in IV D5W 50ml IV SCH (17:56)
[2021-10-04] MEDS: ASCORBIC ACID 500 MG TABLET GT SCH (17:56)
--- NOTE | 2021-10-04 19:11 | NUR ---
RN CLOSING NOTE PT OBSERVED IN BED WITH HOB >30 DEGREES. PT IS ON MECHANICAL VENT WITH ALL PRESCRIBED SAT 100%. PT IS OBTUNDED A/OX1. GTUBE IS IN PLACE INFUSING WITH TF @75ML/HR. FC IS IN PLACE DRAINING URINE TO GRAVITY. IV ACCESS R FEM LINE 3 LUMEN INFUSING WITH NS @ 100ML/HR. BED IS LOCKED IN LOWEST POSITION ALL HOSPITAL PRECAUTIONS ARE IN PLACE
--- NOTE | 2021-10-04 19:20 | NUR ---
RN NOTES RECEIVED REPORT FROM MORNING RN. PATIENT IN BED OBTUNDED. WITH TRACH CONNECTED TO MV WITH PRESCRIBED SETTINGS. AC 16 VT 450 FIO2 50 PEEP 5 TOLERATING WELL SATING 96%. VITAL SIGNS TAKEN AND RECORDED FEBRILE. WITH GT PATENT ON CONTINUOS FEEDING. HOB ELEVATED. CALL LIGHT WITHIN REACH. BED ON LOWEST POSITION AND LOCKED. WILL CLOSELY MONITOR THE PATIENT.
[2021-10-04] MEDS: SENNOSIDES 8.6 MG TABLET GT SCH (21:27)
[2021-10-04] MEDS: ATORVASTATIN 10 MG TABLET GT SCH (21:27)
[2021-10-04] MEDS: THERAHONEY GEL 1.5 OZ TUBE TP SCH (23:10)
[2021-10-05] VITALS: BP 128/82
--- NOTE | 2021-10-05 00:20 | NUR ---
RN NOTES BS 94MG/DL NO COVERAGE GIVEN
[2021-10-05] MEDS: ZOSYN IVPB 4.5 G in IV D5W 50ml IV SCH ×4 (00:28→16:59)
[2021-10-05] MEDS: BLOOD SUGAR DIAGNOSTIC 1 EACH STRIP IN SCH ×4 (00:28→16:57)
[2021-10-05] MEDS: IV NS 0.9% 1,000 ML IV PRN (02:55)
[2021-10-05 04:00] VITALS: BP 137/91
[2021-10-05] MEDS: LORAZEPAM INJ 2 MG/ML VIAL IV PRN ×2 (04:44→07:52)
[2021-10-05] MEDS: BACLOFEN (10 MG) 10 MG TABLET GT SCH ×3 (04:44→20:44)
--- NOTE | 2021-10-05 06:50 | NUR ---
RN NOTES PT IN BED WITH HOB >30 DEGREES. PT IS ON MECHANICAL VENT ON PRESCRIBED SETTINGS WITH SAT 100%. PT IS OBTUNDED A/OX1. GTUBE IS IN PLACE INFUSING WITH TF @75ML/HR. IV ACCESS @ R IJ CENTRAL LINE WITH 3 LUMEN INFUSING WITH NS @ 100ML/HR. BED IS LOCKED IN LOWEST POSITION ALL HOSPITAL PRECAUTIONS ARE IN PLACE. STILL WITH EPISODES OF TACHYCARDIC AND DIAPORETIC. WILL CLOSELY MONITOR. ENDORSED TO MORNING SHIFT FOR JENNY
[2021-10-05 07:14] LABS: BASOPHILS # (AUTO) 0.1 K/uL (0.0-0.2); BASOPHILS % (AUTO) 0.3 % (0.0-2.0); EOSINOPHILS % (AUTO) 0.2 % (0.0-6.0); HEMATOCRIT 34 % (39-51); HEMOGLOBIN 10.5 g/dL (13.5-17.5); LYMPHOCYTES # (AUTO) 5.6 K/uL (0.8-4.8); LYMPHOCYTES % (AUTO) 29.6 % (20.0-44.0); MEAN CORPUSCULAR HGB CONC 31 g/dl (31.0-36.0); MEAN CORPUSCULAR VOLUME 102 fL (80-96); MONOCYTES # (AUTO) 1.8 K/uL (0.1-1.30); MONOCYTES % (AUTO) 9.6 % (2.0-12.0); NEUTROPHILS # (AUTO) 11.5 K/uL (1.8-8.9); NEUTROPHILS % (AUTO) 60.3 % (43.0-81.0); PLATELET COUNT (AUTO) 337 K/uL (150-450); RED BLOOD CELL COUNT(AUTO) 3.38 MIL/uL (4.5-6.0); WHITE BLOOD COUNT (AUTO) 19.1 K/uL (4.3-11.0)
[2021-10-05 07:31] LABS: CREATININE 1.5 mg/dL (0.6-1.3); POTASSIUM 5.8 mmol/L (3.5-5.1)
[2021-10-05] MEDS: MORPHINE SULFATE INJ 2 MG/ML DISP.SYRIN IV PRN (08:25)
[2021-10-05] MEDS ORDERED: LORAZEPAM INJ 2 MG/ML VIAL IV PRN (08:30)
--- NOTE | 2021-10-05 08:48 | NUR ---
PT UNSTABLE TEMP 104.1 AXILLARY, HR 180, RESP 61, O2 70% VENTED, AND BP 173/103. DR. WATSON AWARE 4MG ATIVAN ORDERED AND ADMINISTERED. TYLENOL GT ADMIN. MORPHINE 2MG ADMIN. WILL CONTINUE TO MONITOR.
[2021-10-05] MEDS: AMLODIPINE BESYLATE 5 MG TABLET GT SCH (08:52)
[2021-10-05] MEDS: METOPROLOL TARTRATE 25 MG TABLET GT SCH ×2 (08:52→16:57)
[2021-10-05] MEDS: HEPARIN SODIUM, PORCINE 5000 UNITS/1 ML VIAL SQ SCH ×2 (08:53→20:21)
[2021-10-05] MEDS: ACETAMINOPHEN 650 MG/20.3 ML UDC PEG PRN (08:53)
[2021-10-05] MEDS: CHLORHEXIDINE GLUCONATE 15 ML UDC MM SCH ×2 (09:29→20:22)
[2021-10-05] MEDS: LEVETIRACETAM SOL (5 ML) 100 MG/ML UDC GT SCH ×2 (09:29→20:23)
[2021-10-05] MEDS: MULTIVITAMINS,THERAGRAN 1 UDTAB TABLET GT SCH (09:29)
[2021-10-05] MEDS: DIVALPROEX SODIUM 125 MG CAP.SPRINK GT SCH ×2 (09:29→16:57)
[2021-10-05] MEDS: FERROUS SULFATE UDC 300 MG/5 ML UDC GT SCH (09:29)
[2021-10-05] MEDS: LINEZOLID RTU BAG 600 MG in PREMIX 1 EA IV SCH (09:29)
[2021-10-05] MEDS: ARGININE/GLUTAMINE/CALCIUM BMB 1 EACH POWD.PACK GT SCH ×2 (09:30→16:57)
[2021-10-05] MEDS: ZINC SULFATE 220 MG CAPSULE GT SCH (09:30)
[2021-10-05] MEDS: DOCUSATE SODIUM 100 MG CAPSULE PO SCH (09:30)
[2021-10-05] MEDS: PROSOURCE / PROSTAT (PYXIS) 30 ML UDC GT SCH (09:30)
[2021-10-05] MEDS: PANTOPRAZOLE 40 MG/PACK PACK GT SCH (09:30)
[2021-10-05] MEDS: THERAHONEY GEL 1.5 OZ TUBE TP SCH (09:31)
--- NOTE | 2021-10-05 10:26 | NUR ---
Code Status: This SW and [facility] RNAntonino called the pt.s' mother, Tracie Marcos [phone] and discussed code status. SW provided emotional support to Tracie. Tracie stated she would like the pt. to be DNR code status. SW called [facility] and notified patient's nurse, Karlos for MD order.
--- NOTE | 2021-10-05 11:11 | NUR ---
DR. MATHIAS AWARE OF DNR/DNI CODE STATUS
[2021-10-05 12:00] VITALS: BP 102/66
[2021-10-05] MEDS ORDERED: SODIUM POLYSTYRENE SULFONATE 15 G/60 ML BOTTLE GT ONE (12:00)
[2021-10-05 16:00] VITALS: BP 109/57
[2021-10-05] MEDS: ASCORBIC ACID 500 MG TABLET GT SCH (16:59)
--- NOTE | 2021-10-05 18:16 | NUR ---
RN CLOSING NOTE NO SEIZURES NOTED SINCE AM. PT FEVER @12PM TYLENOL GIVEN AND SUBSIDED. COOLING MEASURES REMOVED. VENT SETTINGS AC 16, TV 450, FIO2 50% AND PEEP 5. PT TOLERATING GLUCERNA 75CC NO RESIDUAL. R JUGULAR PICC INTACT AND FLUSHING.
--- NOTE | 2021-10-05 19:10 | NUR ---
RN NOTES RECEIVED REPORT FROM MORNING RN. PATIENT IN BED OBTUNDED. WITH TRACH CONNECTED TO MV WITH PRESCRIBED SETTINGS. AC 16 VT 450 FIO2 50 PEEP 5 TOLERATING WELL SATING 96%. VITAL SIGNS TAKEN AND RECORDED FEBRILE 99.5. WITH GT PATENT ON CONTINUOS FEEDING. HOB ELEVATED. CALL LIGHT WITHIN REACH. BED ON LOWEST POSITION AND LOCKED. WILL CLOSELY MONITOR THE PATIENT.
[2021-10-05] MEDS: GLUCERNA 1.2 1,000 ML BOTTLE NG PRN (19:22)
[2021-10-05 20:00] VITALS: BP 130/84
[2021-10-05] MEDS: IV NS 0.45% 500 ML IV SCH (21:46)
[2021-10-05] MEDS: ATORVASTATIN 10 MG TABLET GT SCH (22:03)
[2021-10-05] MEDS: SENNOSIDES 8.6 MG TABLET GT SCH (22:03)
[2021-10-06] VITALS: BP 139/81
[2021-10-06] MEDS: BLOOD SUGAR DIAGNOSTIC 1 EACH STRIP IN SCH ×4 (00:30→17:25)
[2021-10-06] MEDS: ZOSYN IVPB 4.5 G in IV D5W 50ml IV SCH ×4 (00:30→17:25)
--- NOTE | 2021-10-06 02:10 | NUR ---
RN NOTES NOTED PATIENT HR INCREASED TO 140-148 SWEATING AND RR 51 ATIVAN 1 MG GIVEN. WILL CONTINUE TO MONITOR THE PATIENT
[2021-10-06] MEDS: LORAZEPAM INJ 2 MG/ML VIAL IV PRN ×4 (02:13→23:35)
[2021-10-06] MEDS: IV NS 0.45% 500 ML IV SCH ×5 (02:17→22:46)
[2021-10-06] MEDS: MORPHINE SULFATE INJ 2 MG/ML DISP.SYRIN IV PRN (02:50)
[2021-10-06 04:00] VITALS: BP 114/61
[2021-10-06] MEDS: BACLOFEN (10 MG) 10 MG TABLET GT SCH ×3 (05:29→21:25)
--- NOTE | 2021-10-06 06:56 | NUR ---
RN NOTES PT IN BED WITH HOB >30 DEGREES. PT IS ON MECHANICAL VENT ON PRESCRIBED SETTINGS WITH SAT 100%. PT IS OBTUNDED A/OX1. GTUBE IS IN PLACE INFUSING WITH TF @75ML/HR. IV ACCESS @ R IJ CENTRAL LINE WITH 3 LUMEN INFUSING WITH 0.45 NS @ 100ML/HR. WITH EPISODES OF SEIZING THIS SHIFT.BED IS LOCKED IN LOWEST POSITION ALL HOSPITAL PRECAUTIONS ARE IN PLACE. STILL WITH EPISODES OF TACHYCARDIC AND DIAPORETIC. WILL CLOSELY MONITOR. ENDORSED TO MORNING SHIFT FOR JENNY
--- NOTE | 2021-10-06 07:35 | NUR ---
RN OPENING NOTES RECEIVED PT IN BED WITH HOB >30 DEGREES. PT IS ON MECHANICAL VENT ON PRESCRIBED SETTINGS WITH SAT 100%. PT IS OBTUNDED . GTUBE IS IN PLACE INFUSING WITH TF @75ML/HR. IV ACCESS @ R IJ CENTRAL LINE WITH 3 LUMEN INFUSING WITH NS @ 100ML/HR. BED IS LOCKED IN LOWEST POSITION ALL HOSPITAL PRECAUTIONS ARE IN PLACE.
[2021-10-06 08:00] VITALS: BP 115/64
[2021-10-06 08:18] LABS: BASOPHILS % (AUTO) 0.1 % (0.0-2.0); EOSINOPHILS % (AUTO) 0.3 % (0.0-6.0); HEMATOCRIT 26 % (39-51); HEMOGLOBIN 8.1 g/dL (13.5-17.5); LYMPHOCYTES # (AUTO) 2.3 K/uL (0.8-4.8); LYMPHOCYTES % (AUTO) 19.3 % (20.0-44.0); MEAN CORPUSCULAR HGB CONC 31 g/dl (31.0-36.0); MEAN CORPUSCULAR VOLUME 100 fL (80-96); MONOCYTES # (AUTO) 1.3 K/uL (0.1-1.30); MONOCYTES % (AUTO) 10.6 % (2.0-12.0); NEUTROPHILS # (AUTO) 8.3 K/uL (1.8-8.9); NEUTROPHILS % (AUTO) 69.7 % (43.0-81.0); PLATELET COUNT (AUTO) 233 K/uL (150-450); RED BLOOD CELL COUNT(AUTO) 2.61 MIL/uL (4.5-6.0); WHITE BLOOD COUNT (AUTO) 11.9 K/uL (4.3-11.0)
[2021-10-06] MEDS: DIVALPROEX SODIUM 125 MG CAP.SPRINK GT SCH ×2 (08:21→16:28)
[2021-10-06] MEDS: CHLORHEXIDINE GLUCONATE 15 ML UDC MM SCH ×2 (08:21→21:25)
[2021-10-06] MEDS: PANTOPRAZOLE 40 MG/PACK PACK GT SCH (08:21)
[2021-10-06] MEDS: ZINC SULFATE 220 MG CAPSULE GT SCH (08:21)
[2021-10-06] MEDS: LEVETIRACETAM SOL (5 ML) 100 MG/ML UDC GT SCH ×2 (08:21→21:25)
[2021-10-06] MEDS: FERROUS SULFATE UDC 300 MG/5 ML UDC GT SCH (08:21)
[2021-10-06] MEDS: METOPROLOL TARTRATE 25 MG TABLET GT SCH ×2 (08:24→16:27)
[2021-10-06] MEDS: AMLODIPINE BESYLATE 5 MG TABLET GT SCH (08:24)
[2021-10-06] MEDS: MULTIVITAMINS,THERAGRAN 1 UDTAB TABLET GT SCH (08:25)
[2021-10-06] MEDS: DOCUSATE SODIUM 100 MG CAPSULE PO SCH (08:25)
[2021-10-06] MEDS: HEPARIN SODIUM, PORCINE 5000 UNITS/1 ML VIAL SQ SCH ×2 (08:26→21:29)
[2021-10-06] MEDS: ARGININE/GLUTAMINE/CALCIUM BMB 1 EACH POWD.PACK GT SCH ×2 (08:27→16:28)
[2021-10-06] MEDS: PROSOURCE / PROSTAT (PYXIS) 30 ML UDC GT SCH (08:27)
[2021-10-06] MEDS: THERAHONEY GEL 1.5 OZ TUBE TP SCH (08:30)
[2021-10-06 08:45] LABS: CALCIUM, SERUM 8.8 mg/dL (8.5-10.1); CREATININE 1.3 mg/dL (0.6-1.3); POTASSIUM 3.3 mmol/L (3.5-5.1)
[2021-10-06] MEDS ORDERED: POTASSIUM CHLORIDE 20 MEQ POWDER PACKET GT SCH (10:00)
[2021-10-06] MEDS: INSULIN REGULAR, HUMAN 100 UNIT/ML 3 ML VIAL SQ PRN ×2 (11:59→17:26)
[2021-10-06 12:00] VITALS: BP 143/84
--- NOTE | 2021-10-06 16:58 | NUR ---
RN NOTE WOUND CX SENT TO LAB.
[2021-10-06] MEDS: ASCORBIC ACID 500 MG TABLET GT SCH (17:25)
[2021-10-06] MEDS: GLUCERNA 1.2 1,000 ML BOTTLE NG PRN (17:27)
[2021-10-06 18:00] VITALS: BP 132/65
--- NOTE | 2021-10-06 19:00 | NUR ---
RN NOTES RECEIVED REPORT FROM MORNING RN. PATIENT IN BED OBTUNDED. WITH TRACH CONNECTED TO MV WITH PRESCRIBED SETTINGS. AC 16 VT 450 FIO2 50 PEEP 5 TOLERATING WELL SATING 96%. VITAL SIGNS TAKEN AND RECORDED FEBRILE 99.5. WITH GT PATENT ON CONTINUOS FEEDING. WITH IJ CATH PATENT RUNNING 0.45 NS @ 100 CC/HR.HOB ELEVATED. CALL LIGHT WITHIN REACH. BED ON LOWEST POSITION AND LOCKED. WILL CLOSELY MONITOR THE PATIENT.
--- NOTE | 2021-10-06 19:32 | NUR ---
RN NOTES PT IN BED WITH HOB >30 DEGREES. PT IS ON MECHANICAL VENT ON PRESCRIBED SETTINGS WITH SAT 100%. PT IS OBTUNDED. GTUBE IS IN PLACE INFUSING WITH TF @75ML/HR. IV ACCESS @ R IJ CENTRAL LINE WITH 3 LUMEN INFUSING WITH 0.45 NS @ 100ML/HR. WITH EPISODES OF SEIZING THIS SHIFT.BED IS LOCKED IN LOWEST POSITION ALL HOSPITAL PRECAUTIONS ARE IN PLACE. WILL ENDORSE TO NIGHT NURSE FOR JENNY.
[2021-10-06 20:00] VITALS: BP 115/57
[2021-10-06] MEDS: SENNOSIDES 8.6 MG TABLET GT SCH (21:25)
[2021-10-06] MEDS: ATORVASTATIN 10 MG TABLET GT SCH (21:25)
[2021-10-07] VITALS: BP 150/57
[2021-10-07] MEDS: MORPHINE SULFATE INJ 2 MG/ML DISP.SYRIN IV PRN ×2 (00:20→17:24)
[2021-10-07] MEDS: BLOOD SUGAR DIAGNOSTIC 1 EACH STRIP IN SCH ×4 (00:28→17:21)
[2021-10-07] MEDS: ZOSYN IVPB 4.5 G in IV D5W 50ml IV SCH ×4 (00:28→17:22)
[2021-10-07 04:00] VITALS: BP 113/59
[2021-10-07] MEDS: BACLOFEN (10 MG) 10 MG TABLET GT SCH ×3 (05:39→23:36)
[2021-10-07] MEDS: IV NS 0.45% 500 ML IV SCH ×5 (05:40→23:00)
--- NOTE | 2021-10-07 07:00 | NUR ---
RADIOLOGY CT TECHNOLOGIST OPENING NOTE PT IN BED WITH HOB >30 DEGREES. PT IS ON MECHANICAL VENT ON PRESCRIBED SETTINGS WITH SAT 100%. PT IS OBTUNDED A/OX1. GTUBE IS IN PLACE INFUSING WITH TF @75ML/HR. IV ACCESS @ R IJ CENTRAL LINE WITH 3 LUMEN INFUSING WITH 0.45 NS @ 100ML/HR. WITH EPISODES OF SEIZING THIS SHIFT.BED IS LOCKED IN LOWEST POSITION ALL HOSPITAL PRECAUTIONS ARE IN PLACE. STILL WITH EPISODES OF TACHYCARDIC AND DIAPORESIS. WILL CONTINUE TO MONITOR.
[2021-10-07 08:00] VITALS: BP 143/84
[2021-10-07 08:10] LABS: BASOPHILS % (AUTO) 0.2 % (0.0-2.0); EOSINOPHILS % (AUTO) 0.6 % (0.0-6.0); HEMATOCRIT 29 % (39-51); HEMOGLOBIN 8.9 g/dL (13.5-17.5); LYMPHOCYTES # (AUTO) 3.6 K/uL (0.8-4.8); LYMPHOCYTES % (AUTO) 25.3 % (20.0-44.0); MEAN CORPUSCULAR HGB CONC 31 g/dl (31.0-36.0); MEAN CORPUSCULAR VOLUME 100 fL (80-96); MONOCYTES % (AUTO) 7.2 % (2.0-12.0); NEUTROPHILS # (AUTO) 9.4 K/uL (1.8-8.9); NEUTROPHILS % (AUTO) 66.7 % (43.0-81.0); PLATELET COUNT (AUTO) 238 K/uL (150-450); RED BLOOD CELL COUNT(AUTO) 2.87 MIL/uL (4.5-6.0); WHITE BLOOD COUNT (AUTO) 14.1 K/uL (4.3-11.0)
[2021-10-07 08:56] LABS: CALCIUM, SERUM 9.4 mg/dL (8.5-10.1); CREATININE 1.1 mg/dL (0.6-1.3); POTASSIUM 4.8 mmol/L (3.5-5.1)
[2021-10-07] MEDS: LORAZEPAM INJ 2 MG/ML VIAL IV PRN ×2 (09:42→23:46)
--- NOTE | 2021-10-07 09:44 | NUR ---
RN NOTE PATIENT NOTED WITH SOME TREMORS AND PRN ATIVAN 1 MG IVP ADMINISTERED ORDERED. WILL CONTINUE TO MONITOR FOR S/S OF SEIZURE.
[2021-10-07] MEDS: PANTOPRAZOLE 40 MG/PACK PACK GT SCH (09:49)
[2021-10-07] MEDS: DIVALPROEX SODIUM 125 MG CAP.SPRINK GT SCH ×2 (09:49→16:31)
[2021-10-07] MEDS: AMLODIPINE BESYLATE 5 MG TABLET GT SCH (09:50)
[2021-10-07] MEDS: LEVETIRACETAM SOL (5 ML) 100 MG/ML UDC GT SCH ×2 (09:50→23:33)
[2021-10-07] MEDS: MULTIVITAMINS,THERAGRAN 1 UDTAB TABLET GT SCH (09:51)
[2021-10-07] MEDS: METOPROLOL TARTRATE 25 MG TABLET GT SCH ×2 (09:51→16:32)
[2021-10-07] MEDS: DOCUSATE SODIUM 100 MG CAPSULE PO SCH (09:51)
[2021-10-07] MEDS: CHLORHEXIDINE GLUCONATE 15 ML UDC MM SCH (09:51)
[2021-10-07] MEDS: ZINC SULFATE 220 MG CAPSULE GT SCH (09:52)
[2021-10-07] MEDS: FERROUS SULFATE UDC 300 MG/5 ML UDC GT SCH (09:52)
[2021-10-07] MEDS: HEPARIN SODIUM, PORCINE 5000 UNITS/1 ML VIAL SQ SCH ×2 (09:53→23:39)
[2021-10-07] MEDS: PROSOURCE / PROSTAT (PYXIS) 30 ML UDC GT SCH (09:54)
[2021-10-07] MEDS: THERAHONEY GEL 1.5 OZ TUBE TP SCH (09:54)
[2021-10-07] MEDS: ARGININE/GLUTAMINE/CALCIUM BMB 1 EACH POWD.PACK GT SCH ×2 (09:55→16:35)
[2021-10-07 12:00] VITALS: BP 143/84
[2021-10-07] MEDS: DEXTROSE 50%-WATER 50 ML DISP.SYRIN IV PRN (12:31)
--- NOTE | 2021-10-07 13:00 | NUR ---
RN NOTE PATIENT NOTED WITH LOW BLOOD GLUCOSE OF 57 AT 1230. 25 G DEXTROSE ADMINISTERED VIA G-TUBE, BLOOD SUGAR REASSESSED AT 1300 AND INCREASED TO 77. WILL CONTINUE TO MONITOR BLOOD GLUCOSE LEVELS.
[2021-10-07] MEDS: ACETAMINOPHEN 650 MG/20.3 ML UDC PEG PRN (13:06)
[2021-10-07 16:00] VITALS: BP 143/84
[2021-10-07] MEDS: ASCORBIC ACID 500 MG TABLET GT SCH (17:23)
--- NOTE | 2021-10-07 17:31 | NUR ---
RN NOTE PATIENT NOTED WITH 8/10 PAIN EVIDENCED BY PERSPIRATION AND FACIAL GRIMACING. 2 MG MORPHINE IVP ADMINISTERED ORDERED. WILL CONTINUE TO MONITOR FOR S/S OF PAIN.
--- NOTE | 2021-10-07 19:00 | NUR ---
RN CLOSING NOTE PT IN BED WITH HOB >30 DEGREES. PT IS ON MECHANICAL VENT ON PRESCRIBED SETTINGS WITH SAT 100%. PT IS OBTUNDED A/OX1. GTUBE IS IN PLACE WITH FEEDING PAUSED AT THIS TIME. IV ACCESS @ R IJ CENTRAL LINE WITH 3 LUMEN INFUSING WITH 0.45 NS @ 100ML/HR. SAFETY MEASURES IN PLACE: BED IN LOWEST LOCKED POSITION, CALL LIGHT WITHIN REACH, SIDE RAILS UP X 3. WILL ENDORSE TO CHANGE MANAGEMENT MANAGER FOR JENNY. Addendum: 10/07/21 at 2016 by PRAMOD JOSE RN PATIENT TURNED Q2H DURING SHIFT. ALL NEEDS WERE MET.
[2021-10-07 20:00] VITALS: BP 104/59
[2021-10-07] MEDS: HYDROCODONE/APAP 5/325MG TABLET GT PRN (23:34)
[2021-10-07] MEDS: ATORVASTATIN 10 MG TABLET GT SCH (23:35)
[2021-10-07] MEDS: SENNOSIDES 8.6 MG TABLET GT SCH (23:36)
[2021-10-08] VITALS: BP 104/63
[2021-10-08] MEDS: ZOSYN IVPB 4.5 G in IV D5W 50ml IV SCH ×4 (00:13→18:07)
[2021-10-08] MEDS: CHLORHEXIDINE GLUCONATE 15 ML UDC MM SCH ×3 (00:22→21:02)
[2021-10-08] MEDS: BLOOD SUGAR DIAGNOSTIC 1 EACH STRIP IN SCH ×4 (00:56→18:05)
[2021-10-08] MEDS: INSULIN REGULAR, HUMAN 100 UNIT/ML 3 ML VIAL SQ PRN ×4 (00:57→18:06)
[2021-10-08 04:00] VITALS: BP 112/83
[2021-10-08] MEDS: IV NS 0.45% 500 ML IV SCH ×4 (04:11→18:39)
[2021-10-08] MEDS: BACLOFEN (10 MG) 10 MG TABLET GT SCH ×3 (05:03→21:02)
--- NOTE | 2021-10-08 07:03 | NUR ---
RN notes in bed resting comfortably with no distress noted. Breathing even and unlabored. Noted with shaking and grinding of teeth, ativan administered x2 with help. Vacherie given for possible pain x 1. Vital signs wnl. Monitored closely. Kept clean and dry. Will endorse to next shift for continuity of care.
--- NOTE | 2021-10-08 07:06 | NUR ---
FOUND ON 40% WITH 99% SPO2 Addendum: 10/08/21 at 0706 by BREANNE MAYERS RT Amended: Links added.
--- NOTE | 2021-10-08 07:07 | NUR ---
FIO2 TITRATION FIO2 DECREASED FROM 40% TO 30% DUE TO 98 - 99% SPO2 Addendum: 10/08/21 at 0708 by BREANNE MAYERS RT Amended: Links added.
--- NOTE | 2021-10-08 07:48 | NUR ---
SPECIALIST WOUND CARE OPENING NOTE PT IN BED WITH HOB >30 DEGREES. PT IS ON MECHANICAL VENT ON PRESCRIBED SETTINGS WITH SAT 100%. PT IS OBTUNDED A/OX1. GTUBE IS IN PLACE INFUSING WITH TF @75ML/HR. IV ACCESS @ R IJ CENTRAL LINE WITH 3 LUMEN INFUSING WITH 0.45 NS @ 100ML/HR. BED IS LOCKED IN LOWEST POSITION ALL HOSPITAL PRECAUTIONS ARE IN PLACE.
[2021-10-08 08:00] VITALS: BP 133/71
[2021-10-08 08:11] LABS: BASOPHILS % (AUTO) 0.4 % (0.0-2.0); EOSINOPHILS % (AUTO) 1.6 % (0.0-6.0); HEMATOCRIT 30 % (39-51); HEMOGLOBIN 9.4 g/dL (13.5-17.5); LYMPHOCYTES # (AUTO) 3.8 K/uL (0.8-4.8); LYMPHOCYTES % (AUTO) 33.1 % (20.0-44.0); MEAN CORPUSCULAR HGB CONC 32 g/dl (31.0-36.0); MEAN CORPUSCULAR VOLUME 100 fL (80-96); MONOCYTES # (AUTO) 0.9 K/uL (0.1-1.30); MONOCYTES % (AUTO) 7.6 % (2.0-12.0); NEUTROPHILS # (AUTO) 6.5 K/uL (1.8-8.9); NEUTROPHILS % (AUTO) 57.3 % (43.0-81.0); PLATELET COUNT (AUTO) 235 K/uL (150-450); RED BLOOD CELL COUNT(AUTO) 2.96 MIL/uL (4.5-6.0); WHITE BLOOD COUNT (AUTO) 11.4 K/uL (4.3-11.0)
[2021-10-08 08:53] LABS: CALCIUM, SERUM 9.3 mg/dL (8.5-10.1); CREATININE 1.1 mg/dL (0.6-1.3); POTASSIUM 4.7 mmol/L (3.5-5.1)
[2021-10-08] MEDS: FERROUS SULFATE UDC 300 MG/5 ML UDC GT SCH (09:06)
[2021-10-08] MEDS: HEPARIN SODIUM, PORCINE 5000 UNITS/1 ML VIAL SQ SCH ×2 (09:06→21:04)
[2021-10-08] MEDS: AMLODIPINE BESYLATE 5 MG TABLET GT SCH (09:07)
[2021-10-08] MEDS: METOPROLOL TARTRATE 25 MG TABLET GT SCH ×2 (09:08→18:05)
[2021-10-08] MEDS: MULTIVITAMINS,THERAGRAN 1 UDTAB TABLET GT SCH (09:08)
[2021-10-08] MEDS: PANTOPRAZOLE 40 MG/PACK PACK GT SCH (09:08)
[2021-10-08] MEDS: LEVETIRACETAM SOL (5 ML) 100 MG/ML UDC GT SCH ×2 (09:08→21:02)
[2021-10-08] MEDS: ZINC SULFATE 220 MG CAPSULE GT SCH (09:08)
[2021-10-08] MEDS: DOCUSATE SODIUM 100 MG CAPSULE PO SCH (09:08)
[2021-10-08] MEDS: DIVALPROEX SODIUM 125 MG CAP.SPRINK GT SCH ×2 (09:08→18:39)
[2021-10-08] MEDS: ARGININE/GLUTAMINE/CALCIUM BMB 1 EACH POWD.PACK GT SCH ×2 (09:09→18:04)
[2021-10-08] MEDS: PROSOURCE / PROSTAT (PYXIS) 30 ML UDC GT SCH (09:09)
[2021-10-08] MEDS: THERAHONEY GEL 1.5 OZ TUBE TP SCH (09:09)
[2021-10-08] MEDS: LORAZEPAM INJ 2 MG/ML VIAL IV PRN ×4 (09:56→22:48)
[2021-10-08 12:00] VITALS: BP 121/84
[2021-10-08 16:00] VITALS: BP 118/76
[2021-10-08] MEDS: GLUCERNA 1.2 1,000 ML BOTTLE NG PRN (17:23)
[2021-10-08] MEDS: ASCORBIC ACID 500 MG TABLET GT SCH (18:05)
--- NOTE | 2021-10-08 19:44 | NUR ---
MATHEMATICAL TECHNICIAN CLOSING NOTE PT IN BED WITH HOB >30 DEGREES. PT IS ON MECHANICAL VENT ON PRESCRIBED SETTINGS WITH SAT 100%. PT IS OBTUNDED A/OX1. GTUBE IS IN PLACE INFUSING WITH TF @75ML/HR. IV ACCESS @ R IJ CENTRAL LINE WITH 3 LUMEN INFUSING WITH 0.45 NS @ 100ML/HR. BED IS LOCKED IN LOWEST POSITION ALL HOSPITAL PRECAUTIONS ARE IN PLACE.
[2021-10-08 20:00] VITALS: BP 107/66
[2021-10-08] MEDS ORDERED: DOSING PER PHARMACY-AMIKACI IV XX PRN (20:00)
[2021-10-08] MEDS ORDERED: CEFTAZIDIME IV ONE (20:30)
[2021-10-08] MEDS ORDERED: AVIBACTAM IV ONE (20:30)
[2021-10-08] MEDS ORDERED: AMIKACIN 1,000 MG in IV D5W 100 ML IV ONE (21:00)
[2021-10-08] MEDS: ATORVASTATIN 10 MG TABLET GT SCH (21:02)
[2021-10-08] MEDS: SENNOSIDES 8.6 MG TABLET GT SCH (21:11)
[2021-10-08] MEDS ORDERED: AMIKACIN 250 MG/ML VIAL ONE (21:40)
[2021-10-08] MEDS ORDERED: AVIBACTAM IV SCH (22:00)
[2021-10-08] MEDS ORDERED: CEFTAZIDIME IV SCH (22:00)
[2021-10-08] MEDS ORDERED: NS 0.9% IV SCH (22:00)
[2021-10-08] MEDS: ACETAMINOPHEN 650 MG/20.3 ML UDC PEG PRN (22:24)
--- NOTE | 2021-10-08 22:30 | NUR ---
Patient had temperature of 99.9 gave PRN tylenol. will reassess.
[2021-10-09] VITALS: BP 118/72
[2021-10-09] MEDS: ZOSYN IVPB 4.5 G in IV D5W 50ml IV SCH ×5 (00:14→23:05)
[2021-10-09] MEDS: IV NS 0.45% 500 ML IV SCH ×5 (00:14→20:37)
[2021-10-09] MEDS: BLOOD SUGAR DIAGNOSTIC 1 EACH STRIP IN SCH ×5 (00:28→23:22)
--- NOTE | 2021-10-09 02:25 | NUR ---
temp down to 98.0
--- NOTE | 2021-10-09 02:36 | NUR ---
Avycan antibiotic not available. Currently on Zosyn and amikan. Will f/u with pharmacy in AM. electric tape slitter aware.
[2021-10-09 04:00] VITALS: BP 119/71
[2021-10-09] MEDS: BACLOFEN (10 MG) 10 MG TABLET GT SCH ×3 (04:15→21:30)
--- NOTE | 2021-10-09 06:28 | NUR ---
RN CLOSING NOTES At beginning of shift patient had 2 short seizures PRN ativan given. In post ictal period patient was diaphoretic, tachypneic, and tachycardiac. This passed -vitals stabilized. No further seizure activity after around 2330. Patient is currently calm, dry, in bed HR 81 O2 sat at 98% via mech vent. SR-ST overnight 75-105 with no seizure/post seizure state. Patient was 105-135 during immediately after seizures. Patient is obtunded. Condomcath in place draining clear yellow urine. Wound care provided. Glucerna running at 75ml/hr tolerating well no residual. RIJ intact and patent running 1/2NS at 100ml/hr. Blood glucose WNL. Safety/aspiration/fall/seizure/skin precautions in place.
[2021-10-09] MEDS ORDERED: NS 0.9% IV SCH (07:00)
[2021-10-09] MEDS ORDERED: AVIBACTAM IV SCH (07:00)
[2021-10-09] MEDS ORDERED: CEFTAZIDIME IV SCH (07:00)
--- NOTE | 2021-10-09 07:44 | NUR ---
DRUG ABUSE WORKER CLOSING NOTE PT IN BED WITH HOB >30 DEGREES. PT IS ON MECHANICAL VENT ON PRESCRIBED SETTINGS WITH SAT 100%. PT IS OBTUNDED A/OX1. GTUBE IS IN PLACE INFUSING WITH TF @75ML/HR. IV ACCESS @ R IJ CENTRAL LINE WITH 3 LUMEN INFUSING WITH 0.45 NS @ 100ML/HR. BED IS LOCKED IN LOWEST POSITION ALL HOSPITAL PRECAUTIONS ARE IN PLACE.
[2021-10-09 08:00] VITALS: BP 151/64
[2021-10-09] MEDS: MULTIVITAMINS,THERAGRAN 1 UDTAB TABLET GT SCH (08:50)
[2021-10-09] MEDS: DOCUSATE SODIUM 100 MG CAPSULE PO SCH (08:50)
[2021-10-09] MEDS: PANTOPRAZOLE 40 MG/PACK PACK GT SCH (08:50)
[2021-10-09] MEDS: FERROUS SULFATE UDC 300 MG/5 ML UDC GT SCH (08:50)
[2021-10-09] MEDS: CHLORHEXIDINE GLUCONATE 15 ML UDC MM SCH ×2 (08:50→21:31)
[2021-10-09] MEDS: LEVETIRACETAM SOL (5 ML) 100 MG/ML UDC GT SCH ×2 (08:50→21:30)
[2021-10-09] MEDS: AMLODIPINE BESYLATE 5 MG TABLET GT SCH (08:51)
[2021-10-09] MEDS: ZINC SULFATE 220 MG CAPSULE GT SCH (08:51)
[2021-10-09] MEDS: METOPROLOL TARTRATE 25 MG TABLET GT SCH ×2 (08:51→18:11)
[2021-10-09] MEDS: HEPARIN SODIUM, PORCINE 5000 UNITS/1 ML VIAL SQ SCH ×2 (08:52→21:31)
[2021-10-09] MEDS: PROSOURCE / PROSTAT (PYXIS) 30 ML UDC GT SCH (09:08)
[2021-10-09] MEDS: ARGININE/GLUTAMINE/CALCIUM BMB 1 EACH POWD.PACK GT SCH ×2 (09:08→18:11)
[2021-10-09] MEDS: THERAHONEY GEL 1.5 OZ TUBE TP SCH (09:08)
[2021-10-09] MEDS: DIVALPROEX SODIUM 125 MG CAP.SPRINK GT SCH ×2 (09:08→18:11)
[2021-10-09 12:00] VITALS: BP 118/55
[2021-10-09] MEDS: INSULIN REGULAR, HUMAN 100 UNIT/ML 3 ML VIAL SQ PRN ×3 (12:46→23:23)
[2021-10-09 12:55] LABS: CALCIUM, SERUM 8.7 mg/dL (8.5-10.1); POTASSIUM 3.3 mmol/L (3.5-5.1)
[2021-10-09 16:00] VITALS: BP 134/58
[2021-10-09] MEDS: LORAZEPAM INJ 2 MG/ML VIAL IV PRN ×2 (16:06→18:24)
[2021-10-09] MEDS: ASCORBIC ACID 500 MG TABLET GT SCH (18:11)
[2021-10-09] MEDS: HYDROCODONE/APAP 5/325MG TABLET GT PRN (18:11)
[2021-10-09 20:00] VITALS: BP 94/50
--- NOTE | 2021-10-09 20:00 | NUR ---
RN NOTE PATIENT OBTUNDED IN BED. ON TRACH TO [facility] VENT, TOLERATING SETTINGS WELL. NO S/S OF RESPIRATORY DISTRESS. NO S/S OF PAIN OR FACIAL GRIMACING. G-TUBE IN PLACE WITH GLUCERNA @ 75ML/HR RUNNING. NO RESIDUAL NOTED. IV ACCESS ON RIGHT IJ WITH 1/2 NS @ 100ML/HR NO INFILTRATION NOTED. BED LOCKED AND IN LOWEST POSITION. SAFETY MEASURES MAINTAINED. CALL LIGHT WITHIN REACH. WILL CONTINUE TO MONITOR.
[2021-10-09] MEDS: AMIKACIN 500 MG in IV D5W 100 ML IV SCH (21:31)
[2021-10-09] MEDS: SENNOSIDES 8.6 MG TABLET GT SCH (21:32)
[2021-10-09] MEDS: ATORVASTATIN 10 MG TABLET GT SCH (21:32)
[2021-10-10] VITALS: BP 102/55
[2021-10-10] MEDS: IV NS 0.45% 500 ML IV SCH ×5 (00:57→21:40)
--- NOTE | 2021-10-10 01:53 | NUR ---
RN NOTE PATIENT TRANSFERRED TO ROOM 319 VIA ACLS PROTOCOL. V/S STABLE. ALL MEDICATION AND BELONGINGS TAKEN WITH PATIENT. REPORT GIVE TO SWAPNA BEJARANO FOR CONTINUITY OF CARE.
[2021-10-10 02:00] VITALS: BP 117/64
--- NOTE | 2021-10-10 02:26 | NUR ---
RN JENNY NOTE PATIENT TRANSFERRED TO 319-1 FROM [place]. PATIENT IS ON MECH VENT WITH SETTINGS AC 16, TV 450, FIO2 50, PEEP 5. PATIENT TOLERATING SETTINGS WELL AT 100% O2 SAT. PATIENT ON TELE MONITOR READING 86 BPM SR AT THIS TIME. PATIENT HAS A CONDOM CATH IN PLACE DRAINING YELLOW URINE VIA GRAVITY. PATIENT TF GLUCERNA 1.2 AT 75ML/HR. GT IN PACE AND FLUSHES WELL. RIJ CATH RUNNING 1/2 NS AT 100 ML/HR. PATIENT DOES NOT SEEM TO BE IN ANY PAIN VIA FLACC. SAFETY MEASURES IN PLACE: BED LOCKED AND IN LOWEST POSITION, CALL LIGHT WITHIN REACH, SIDE RAILS UP. WILL MONITOR PATIENT CLOSELY.
[2021-10-10 04:00] VITALS: BP 91/51
[2021-10-10] MEDS: LORAZEPAM INJ 2 MG/ML VIAL IV PRN ×6 (04:20→22:34)
--- NOTE | 2021-10-10 04:23 | NUR ---
ATIVAN GIVEN. PATIENT DIAPHORETIC, SHAKING, AND HR 138 BPM.
[2021-10-10] MEDS: BACLOFEN (10 MG) 10 MG TABLET GT SCH ×3 (05:54→21:39)
[2021-10-10] MEDS: ZOSYN IVPB 4.5 G in IV D5W 50ml IV SCH (05:55)
[2021-10-10] MEDS: HYDROCODONE/APAP 5/325MG TABLET GT PRN (06:00)
[2021-10-10] MEDS: BLOOD SUGAR DIAGNOSTIC 1 EACH STRIP IN SCH ×4 (06:14→23:19)
--- NOTE | 2021-10-10 06:30 | NUR ---
RN NOTE BS 90 MG/DL. NO COVERAGE GIVEN, PATIENT ON TF. NO S/S OF HYPOGLYCEMIA.
--- NOTE | 2021-10-10 07:19 | NUR ---
PHYSICAL THERAPY TEACHER OPENING NOTE RECEIVED PT IN BED WITH HOB >30 DEGREES. PT IS OBTUNDED A/OX1. PT IS ON MECHANICAL VENT ON PRESCRIBED SETTINGS WITH SAT 100%. . GTUBE IS IN PLACE INFUSING WITH TF @75ML/HR. IV ACCESS @ R IJ CENTRAL LINE WITH 3 LUMEN INFUSING WITH 0.45 NS @ 100ML/HR. WITH EPISODES OF SEIZING THIS SHIFT BED IS LOCKED IN LOWEST POSITION ALL HOSPITAL PRECAUTIONS ARE IN PLACE. BED LOW LOCKED AND CALL LIGHT WITHIN REACH WILL CONTINUE TO MONITOR.
[2021-10-10] MEDS: MULTIVITAMINS,THERAGRAN 1 UDTAB TABLET GT SCH (08:22)
[2021-10-10] MEDS: LEVETIRACETAM SOL (5 ML) 100 MG/ML UDC GT SCH ×2 (08:23→21:39)
[2021-10-10] MEDS: PANTOPRAZOLE 40 MG/PACK PACK GT SCH (08:23)
[2021-10-10] MEDS: FERROUS SULFATE UDC 300 MG/5 ML UDC GT SCH (08:23)
[2021-10-10] MEDS: ZINC SULFATE 220 MG CAPSULE GT SCH (08:23)
[2021-10-10] MEDS: CHLORHEXIDINE GLUCONATE 15 ML UDC MM SCH ×2 (08:24→21:39)
[2021-10-10] MEDS: THERAHONEY GEL 1.5 OZ TUBE TP SCH (08:24)
[2021-10-10] MEDS: DIVALPROEX SODIUM 125 MG CAP.SPRINK GT SCH ×2 (08:24→16:07)
[2021-10-10] MEDS: DOCUSATE SODIUM 100 MG CAPSULE PO SCH (08:24)
[2021-10-10] MEDS: HEPARIN SODIUM, PORCINE 5000 UNITS/1 ML VIAL SQ SCH (08:25)
[2021-10-10] MEDS: ARGININE/GLUTAMINE/CALCIUM BMB 1 EACH POWD.PACK GT SCH ×2 (08:31→16:07)
[2021-10-10] MEDS: PROSOURCE / PROSTAT (PYXIS) 30 ML UDC GT SCH (08:31)
[2021-10-10] MEDS: METOPROLOL TARTRATE 25 MG TABLET GT SCH ×2 (08:58→16:07)
[2021-10-10] MEDS: AMLODIPINE BESYLATE 5 MG TABLET GT SCH (09:00)
--- NOTE | 2021-10-10 09:06 | NUR ---
RN NOTE PATIENT NOTED WITH SEIZURE EPISODE, SHAKING DIAPHORETIC AND ELEVATED HR, WILL GIVE PRN ATIVAN ORDERED AND CONTINUE SEIZURE PRECAUTIONS
[2021-10-10] MEDS: AMIKACIN 500 MG in IV D5W 100 ML IV SCH ×2 (09:21→23:19)
[2021-10-10 09:22] LABS: CALCIUM, SERUM 9.2 mg/dL (8.5-10.1); CREATININE 1.1 mg/dL (0.6-1.3); POTASSIUM 3.9 mmol/L (3.5-5.1)
[2021-10-10] MEDS: INSULIN REGULAR, HUMAN 100 UNIT/ML 3 ML VIAL SQ PRN ×2 (11:11→17:18)
[2021-10-10 11:40] LABS: BASOPHILS % (AUTO) 0.3 % (0.0-2.0); EOSINOPHILS % (AUTO) 1.4 % (0.0-6.0); HEMATOCRIT 30 % (39-51); HEMOGLOBIN 9.4 g/dL (13.5-17.5); LYMPHOCYTES # (AUTO) 2.2 K/uL (0.8-4.8); LYMPHOCYTES % (AUTO) 19.8 % (20.0-44.0); MEAN CORPUSCULAR HGB CONC 32 g/dl (31.0-36.0); MEAN CORPUSCULAR VOLUME 100 fL (80-96); MONOCYTES # (AUTO) 0.7 K/uL (0.1-1.30); MONOCYTES % (AUTO) 6.5 % (2.0-12.0); NEUTROPHILS # (AUTO) 8.1 K/uL (1.8-8.9); PLATELET COUNT (AUTO) 192 K/uL (150-450); RED BLOOD CELL COUNT(AUTO) 2.98 MIL/uL (4.5-6.0); WHITE BLOOD COUNT (AUTO) 11.3 K/uL (4.3-11.0)
--- NOTE | 2021-10-10 11:46 | NUR ---
RN NOTE PATIENT NOTED WITH SEIZURE EPISODE, SHAKING DIAPHORETIC AND ELEVATED HR, WILL GIVE PRN ATIVAN ORDERED AND CONTINUE SEIZURE PRECAUTIONS
[2021-10-10] MEDS ORDERED: PIPERACILLIN /TAZOBACTAM 3.375 G in IV D5W 100 ML IV SCH (13:00)
[2021-10-10] MEDS: ASCORBIC ACID 500 MG TABLET GT SCH (16:06)
--- NOTE | 2021-10-10 18:36 | NUR ---
RADIO STATION AUDIO ENGINEER CLOSING NOTE PT IN BED WITH HOB >30 DEGREES. PT IS OBTUNDED A/OX1.PT IS ON MECHANICAL VENT ON PRESCRIBED SETTINGS WITH SAT 100%. . GTUBE IS IN PLACE INFUSING WITH TF @75ML/HR, PAUSED DURING DAY SHIFT 2-6 PM. IV ACCESS @ R IJ CENTRAL LINE WITH 3 LUMEN INFUSING WITH 0.45 NS @ 100ML/HR. PATIENT NOTED WITH EPISODES OF SEIZING THIS SHIFT, ATIVAN GIVEN ORDERED. SEIZURE PRECAUTIONS IN PLACE. PATIENT TURNED AND REPOSITIONED PER PROTOCOL. ALL MEDICATIONS GIVEN ORDERED. BED IS LOCKED IN LOWEST POSITION ALL SAFETY PRECAUTIONS ARE IN PLACE. BED LOW LOCKED AND CALL LIGHT WITHIN REACH. WILL ENDORSE TO ONCOMING SHIFT.
--- NOTE | 2021-10-10 19:30 | NUR ---
RN OPENING NOTE PATIENT IS ON [facility] VENT WITH SETTINGS AC 16, TV 450, FIO2 40, PEEP 5. PATIENT TOLERATING SETTINGS WELL AT 100% O2 SAT. PATIENT ON TELE MONITOR READING S7 134 BPM AT THIS TIME. RR 38 AND PATIENT SHAKING AND DIAPHORETIC. WILL GIVE ATIVAN FOR SEIZURES. PATIENT HAS A CONDOM CATH IN PLACE DRAINING YELLOW URINE VIA GRAVITY. PATIENT TF GLUCERNA 1.2 AT 75ML/HR. GT IN PLACE AND FLUSHES WELL. RIJ CATH RUNNING 1/2 NS AT 100 ML/HR. PATIENT NOW ON AIR MATTRESS. SAFETY MEASURES IN PLACE: BED LOCKED AND IN LOWEST POSITION, CALL LIGHT WITHIN REACH, SIDE RAILS UP. WILL MONITOR PATIENT CLOSELY.
--- NOTE | 2021-10-10 19:39 | NUR ---
PATIENT DIAPHORETIC, RR 38, HR IN THE 130S. PATIENT HAVING A SEIZURE. ATIVAN GIVEN.
[2021-10-10 20:00] VITALS: BP 137/93
--- NOTE | 2021-10-10 20:30 | NUR ---
RN NOTE AMIKACIN LEVEL BEING DRAN BY COURT SUPERVISOR. WILL GIVE MED ONCE LAB RESULTED.
[2021-10-10] MEDS: ATORVASTATIN 10 MG TABLET GT SCH (21:39)
[2021-10-10] MEDS: SENNOSIDES 8.6 MG TABLET GT SCH (21:39)
[2021-10-10] MEDS: AVIBACTAM IV SCH (21:41)
[2021-10-10] MEDS: CEFTAZIDIME IV SCH (21:41)
[2021-10-10] MEDS: NS 0.9% IV SCH (21:41)
--- NOTE | 2021-10-10 22:34 | NUR ---
RN NOTE PATIENT GIVEN ATIVAN 1 MG PATIENT HAVING SEIZURE/SHAKING. DIAPHORETIC, HR 140S, RR 40.
[2021-10-11] VITALS: BP 136/76
[2021-10-11] MEDS: HYDROCODONE/APAP 5/325MG TABLET GT PRN ×4 (00:15→20:22)
--- NOTE | 2021-10-11 00:15 | NUR ---
RN NOTE NORCO 5-325 GIVEN TO PATIENT- PATIENT IS RESTLESS AND SHAKING. BP 137/53. HR 128, RR 44. WILL RECHECK VITALS AND PATIENT'S COMFORT LEVEL AT A LATER TIME.
--- NOTE | 2021-10-11 00:20 | NUR ---
RN NOTE BS 85 MG/DL. NO COVERAGE GIVEN, PATIENT ON TF. NO S/S OF HYPOGLYCEMIA.
[2021-10-11] MEDS: IV NS 0.45% 500 ML IV SCH ×2 (02:18→06:27)
[2021-10-11 04:00] VITALS: BP 186/105
[2021-10-11] MEDS: LORAZEPAM INJ 2 MG/ML VIAL IV PRN ×3 (05:17→19:11)
--- NOTE | 2021-10-11 05:18 | NUR ---
RN NOTE ATIVAN GIVEN PATIENT SHAKING, HR 134, RR 39
[2021-10-11] MEDS: AVIBACTAM IV SCH ×3 (05:38→20:26)
[2021-10-11] MEDS: NS 0.9% IV SCH ×3 (05:38→20:26)
[2021-10-11] MEDS: BLOOD SUGAR DIAGNOSTIC 1 EACH STRIP IN SCH ×4 (05:38→23:26)
[2021-10-11] MEDS: CEFTAZIDIME IV SCH ×3 (05:38→20:26)
[2021-10-11] MEDS: BACLOFEN (10 MG) 10 MG TABLET GT SCH ×3 (05:38→20:23)
--- NOTE | 2021-10-11 07:13 | NUR ---
RN CLOSING NOTE PATIENT IN BED, CALM NOW. HR SR 88 BPM. PATIENT GIVEN NORCO 5-325 AT 0631 TO KEEP PATIENT COMFORTABLE HE WAS RESTLESS AND HR IN THE 150S. PATIENT TOLERATING MECH VENT SETTINGS FIO2 40%, RR 16, PEEP 5, VT 450. PATIENT STILL HAS CONDOM CATH ON DRAINING VIA GRAVITY. PATIENT TOLERATED GLUCERNA 1.2 FEEDING, NO RESIDUAL, FLUSHES WELL. PATIENT HAS A R 1J RUNNING NS@100 ML/HR. PATENT AND INTACT. SAFETY MEASURES IN PLACE: BED LOCKED AND IN LOWEST POSITION, CALL LIGHT WITHIN REACH, SIDE RAILS UP. WILL ENDORSE TO DAY SHIFT RN.
[2021-10-11 07:33] LABS: BASOPHILS % (AUTO) 0.2 % (0.0-2.0); EOSINOPHILS % (AUTO) 1.1 % (0.0-6.0); HEMATOCRIT 35 % (39-51); HEMOGLOBIN 10.6 g/dL (13.5-17.5); LYMPHOCYTES # (AUTO) 1.8 K/uL (0.8-4.8); LYMPHOCYTES % (AUTO) 15.9 % (20.0-44.0); MEAN CORPUSCULAR HGB CONC 30 g/dl (31.0-36.0); MEAN CORPUSCULAR VOLUME 106 fL (80-96); MONOCYTES # (AUTO) 0.7 K/uL (0.1-1.30); MONOCYTES % (AUTO) 6.3 % (2.0-12.0); NEUTROPHILS # (AUTO) 8.8 K/uL (1.8-8.9); NEUTROPHILS % (AUTO) 76.5 % (43.0-81.0); PLATELET COUNT (AUTO) 114 K/uL (150-450); RED BLOOD CELL COUNT(AUTO) 3.31 MIL/uL (4.5-6.0); WHITE BLOOD COUNT (AUTO) 11.5 K/uL (4.3-11.0)
--- NOTE | 2021-10-11 07:49 | NUR ---
RN OPENING NOTE PATIENT RECEIVED IN BED ON THE AIR MATTRESS, CALM, OBTUNDED. IN NO ACUTE DISTRESS NOTED. PATIENT HAS ON TRACH, RESPIRATORY EVEN AND UNLABORED ON VENTILATOR. SKIN IS WARM TO TOUCH, KEEP CLEAN/DRY, INTACT IV SITE. KEPT ELEVATED HOB FOR ENSURE AIRWAY AND ASPIRATION PRECAUTION, ALSO LOWEST POSITION OF THE BED, S/R UP X 2, ALL SAFETY PRECAUTION APPLIED. CALL LIGHT WITHIN REACH, WILL CONTINUE TO MONITOR.
[2021-10-11 08:00] VITALS: BP 130/75
[2021-10-11] MEDS: FERROUS SULFATE UDC 300 MG/5 ML UDC GT SCH (09:10)
[2021-10-11] MEDS: AMLODIPINE BESYLATE 5 MG TABLET GT SCH (09:11)
[2021-10-11] MEDS: DOCUSATE SODIUM 100 MG CAPSULE PO SCH (09:11)
[2021-10-11] MEDS: PANTOPRAZOLE 40 MG/PACK PACK GT SCH (09:11)
[2021-10-11] MEDS: METOPROLOL TARTRATE 25 MG TABLET GT SCH ×2 (09:11→17:15)
[2021-10-11] MEDS: ZINC SULFATE 220 MG CAPSULE GT SCH (09:11)
[2021-10-11] MEDS: DIVALPROEX SODIUM 125 MG CAP.SPRINK GT SCH (09:11)
[2021-10-11] MEDS: CHLORHEXIDINE GLUCONATE 15 ML UDC MM SCH ×2 (09:11→20:23)
[2021-10-11] MEDS: MULTIVITAMINS,THERAGRAN 1 UDTAB TABLET GT SCH (09:12)
[2021-10-11] MEDS: THERAHONEY GEL 1.5 OZ TUBE TP SCH (09:14)
[2021-10-11] MEDS: LEVETIRACETAM SOL (5 ML) 100 MG/ML UDC GT SCH ×2 (09:18→20:24)
[2021-10-11] MEDS: ARGININE/GLUTAMINE/CALCIUM BMB 1 EACH POWD.PACK GT SCH ×2 (09:18→17:14)
[2021-10-11] MEDS: PROSOURCE / PROSTAT (PYXIS) 30 ML UDC GT SCH (09:18)
[2021-10-11] MEDS: AMIKACIN 500 MG in IV D5W 100 ML IV SCH (09:44)
[2021-10-11] MEDS: IV 1/2NS 1000 ML 500 ML IV SCH ×2 (12:23→17:16)
[2021-10-11 15:37] LABS: MAGNESIUM 2.4 mg/dL (1.8-2.4); PHOSPHORUS 4.1 mg/dL (2.5-4.9); POTASSIUM 3.8 mmol/L (3.5-5.1)
--- NOTE | 2021-10-11 15:53 | NUR ---
PATIENT NOTICED EPISODE OF SEIZURE, NEW ORDER: D/C PREVIOUS DEPAKOTE ORDER DEPAKOTE 1000 MG TID GIVE IT NOW AND TONIGHT BY DR. MATTHEWS.
[2021-10-11 16:00] VITALS: BP 132/75
[2021-10-11] MEDS: DIVALPROEX SODIUM 125 MG CAP.SPRINK PO SCH ×2 (17:00→17:14)
[2021-10-11] MEDS: ASCORBIC ACID 500 MG TABLET GT SCH (17:14)
--- NOTE | 2021-10-11 17:20 | NUR ---
GIVEN DEPAKOTE 1000MG DUE AT 1700.
--- NOTE | 2021-10-11 18:00 | NUR ---
RN CLOSE NOTE PATIENT IN BED, IN NO ACUTE DISTRESS OBSERVED. RESPIRATION EVEN AND UNLABORED ON ROOM AIR. SKIN IS WARM TO TOUCH KEEP CLEAN//DRY, INTACT NEW IV SITE. KEPT ELEVATED HOB FOR ENSURE AIRWAY AND ASPIRATION PRECAUTION. ALSO LOWEST POSITION OF THE BED FOR SAFETY. CALL LIGHT WITHIN REACH, WILL ENDORSE TO CUSTOMS BROKERAGE AGENT. Addendum: 10/11/21 at 1950 by AGUSTIN GELLER RN ERROR
[2021-10-11 20:00] VITALS: BP 117/73
[2021-10-11] MEDS: IV 1/2NS 1000 ML 1,000 ML IV SCH (20:33)
[2021-10-11] MEDS: ATORVASTATIN 10 MG TABLET GT SCH (21:26)
[2021-10-11] MEDS: SENNOSIDES 8.6 MG TABLET GT SCH (21:26)
[2021-10-11] MEDS: GLUCERNA 1.2 1,000 ML BOTTLE NG PRN (21:31)
[2021-10-12] MEDS: HYDROCODONE/APAP 5/325MG TABLET GT PRN ×2 (03:53→11:44)
[2021-10-12] MEDS: AVIBACTAM IV SCH ×3 (04:28→21:08)
[2021-10-12] MEDS: CEFTAZIDIME IV SCH ×3 (04:28→21:08)
[2021-10-12] MEDS: NS 0.9% IV SCH ×3 (04:28→21:08)
--- NOTE | 2021-10-12 04:45 | NUR ---
End Notes: On the monitoring tech he is SR at times Sinus Tach HR as high as 154/min norco tab 1 given for indication he was having pain HR elevated diaphoretic noted HR falls to the 80 -90s shortly after the NORCO Tablet via GT No seizures this 12 hours Keppra via GT given as ordered. Mazariegos output 450 ml this 12 hours. max assist when being turned and repositioned oral care given mouth open dries out special mattress in use d/t immobilty asp precautions maintaiened.
[2021-10-12] MEDS: BACLOFEN (10 MG) 10 MG TABLET GT SCH ×3 (05:00→21:04)
[2021-10-12] MEDS: IV 1/2NS 1000 ML 1,000 ML IV SCH ×2 (05:02→15:56)
[2021-10-12] MEDS: BLOOD SUGAR DIAGNOSTIC 1 EACH STRIP IN SCH ×3 (05:32→17:05)
[2021-10-12 06:18] LABS: BASOPHILS % (AUTO) 0.3 % (0.0-2.0); EOSINOPHILS % (AUTO) 1.5 % (0.0-6.0); HEMATOCRIT 29 % (39-51); HEMOGLOBIN 9.5 g/dL (13.5-17.5); LYMPHOCYTES % (AUTO) 21.4 % (20.0-44.0); MEAN CORPUSCULAR HGB CONC 32 g/dl (31.0-36.0); MEAN CORPUSCULAR VOLUME 100 fL (80-96); MONOCYTES # (AUTO) 0.7 K/uL (0.1-1.30); NEUTROPHILS # (AUTO) 6.3 K/uL (1.8-8.9); NEUTROPHILS % (AUTO) 68.8 % (43.0-81.0); PLATELET COUNT (AUTO) 179 K/uL (150-450); RED BLOOD CELL COUNT(AUTO) 2.95 MIL/uL (4.5-6.0); WHITE BLOOD COUNT (AUTO) 9.2 K/uL (4.3-11.0)
[2021-10-12 07:13] LABS: CALCIUM, SERUM 9.4 mg/dL (8.5-10.1); PHOSPHORUS 3.9 mg/dL (2.5-4.9); POTASSIUM 3.6 mmol/L (3.5-5.1)
--- NOTE | 2021-10-12 07:58 | NUR ---
RN OPENING NOTE PATIENT RECEIVED IN BED ON THE AIR MATTRESS, CALM, OBTUNDED. IN NO ACUTE DISTRESS NOTED. PATIENT HAS ON TRACH AND VENTILATOR, RESPIRATORY EVEN AND UNLABORED. SKIN IS WARM TO TOUCH, KEEP CLEAN/DRY, INTACT IV SITE. KEPT ELEVATED HOB FOR ENSURE AIRWAY AND ASPIRATION PRECAUTION, ALSO LOWEST POSITION OF THE BED, S/R UP X 2, ALL SAFETY PRECAUTION APPLIED. CALL LIGHT WITHIN REACH, WILL CONTINUE TO MONITOR.
[2021-10-12 08:00] VITALS: BP 114/64
[2021-10-12] MEDS: LEVETIRACETAM SOL (5 ML) 100 MG/ML UDC GT SCH ×2 (09:18→21:04)
[2021-10-12] MEDS: PROSOURCE / PROSTAT (PYXIS) 30 ML UDC GT SCH (09:18)
[2021-10-12] MEDS: DOCUSATE SODIUM 100 MG CAPSULE PO SCH (09:18)
[2021-10-12] MEDS: ZINC SULFATE 220 MG CAPSULE GT SCH (09:19)
[2021-10-12] MEDS: MULTIVITAMINS,THERAGRAN 1 UDTAB TABLET GT SCH (09:19)
[2021-10-12] MEDS: METOPROLOL TARTRATE 25 MG TABLET GT SCH ×2 (09:19→17:05)
[2021-10-12] MEDS: ARGININE/GLUTAMINE/CALCIUM BMB 1 EACH POWD.PACK GT SCH ×2 (09:19→17:04)
[2021-10-12] MEDS: CHLORHEXIDINE GLUCONATE 15 ML UDC MM SCH ×2 (09:19→21:04)
[2021-10-12] MEDS: AMLODIPINE BESYLATE 5 MG TABLET GT SCH (09:19)
[2021-10-12] MEDS: FERROUS SULFATE UDC 300 MG/5 ML UDC GT SCH (09:20)
[2021-10-12] MEDS: DIVALPROEX SODIUM 125 MG CAP.SPRINK PO SCH ×2 (09:20→12:17)
[2021-10-12] MEDS: PANTOPRAZOLE 40 MG/PACK PACK GT SCH (09:20)
[2021-10-12] MEDS: THERAHONEY GEL 1.5 OZ TUBE TP SCH (09:21)
[2021-10-12] MEDS: LORAZEPAM INJ 2 MG/ML VIAL IV PRN ×2 (09:39→22:44)
[2021-10-12 12:00] VITALS: BP 119/72
[2021-10-12 16:00] VITALS: BP 114/69
[2021-10-12] MEDS: VALPROIC ACID 250 MG/5 ML UDC GT SCH (17:05)
[2021-10-12] MEDS: ASCORBIC ACID 500 MG TABLET GT SCH (17:05)
--- NOTE | 2021-10-12 18:57 | NUR ---
RN CLOSE NOTE PATIENT IN BED, IN NO ACUTE DISTRESS OBSERVED. RESPIRATION EVEN AND UNLABORED ON ROOM AIR. SKIN IS WARM TO TOUCH KEEP CLEAN//DRY, INTACT IV SITE, ORAL CARE PROVIDED. CONDOM CATH CONNECTING URINE BAG, 500ML OUT PUT. KEPT ELEVATED HOB FOR ENSURE AIRWAY AND ASPIRATION PRECAUTION. ALSO LOWEST POSITION OF THE BED FOR SAFETY. CALL LIGHT WITHIN REACH, WILL ENDORSE TO SPECIAL SERVICES SUPERVISOR.
--- NOTE | 2021-10-12 19:15 | NUR ---
RECEIVED PATIENT IN BED, HOB ELEVATED. NON VERBAL, OBTUNDED. NO S/S OF DISTRESS NOTED. NOT IN PAIN. BED ALARM ON. BED IN LOWEST AND LOCKED POSITION. WITH TRACH, DRESSING IS CLEAN, DRY AND INTACT, CONNECTED TO THE VENT. WITH GT FEEDING RUNNING AT 75 ML/HOUR. ARMS CONTRACTED. ON AIR MATTRESS. WIT CONDOM CATH. ACCORDING TO THE REPORTS FROM CARLEE LUKE, PATIENT HAD 4X EPISODES OF SEIZURES, DR LEUNG AWARE. ON TELE MONITOR.
[2021-10-12] MEDS: GLUCERNA 1.2 1,000 ML BOTTLE NG PRN (19:47)
[2021-10-12 20:52] VITALS: BP 128/76
[2021-10-12] MEDS: ATORVASTATIN 10 MG TABLET GT SCH (21:04)
[2021-10-12] MEDS: ACETAMINOPHEN 650 MG/20.3 ML UDC PEG PRN (21:04)
[2021-10-12] MEDS: SENNOSIDES 8.6 MG TABLET GT SCH (21:06)
--- NOTE | 2021-10-12 22:49 | NUR ---
HAD AN EPISODE OF SEIZURE, RIGHT SIDE OF THE MOUTH AND ARMS WERE JERKING, BECAME TACHYCARDIC, AND DIAPHORETIC, ATIVAN 1 MG IV GIVEN. WILL CONTINUE TO MONITOR.
--- NOTE | 2021-10-12 23:53 | NUR ---
Patient had episodes of seizures again, tachycardic, and diaphoretic, kept patient clean and dry, linen changed. Charge nurse Janet made aware.
[2021-10-13 00:02] VITALS: BP 131/76
[2021-10-13] MEDS: INSULIN REGULAR, HUMAN 100 UNIT/ML 3 ML VIAL SQ PRN ×2 (00:35→06:01)
[2021-10-13] MEDS: LORAZEPAM INJ 2 MG/ML VIAL IV PRN ×3 (00:47→13:22)
--- NOTE | 2021-10-13 01:03 | NUR ---
INFORMED DR PASTOR RE: PATIENT HAD EPISODES OF SEIZURES, TACHYCARDIC, HIGHEST WAS 160, TEMP OF 99.7, TYLENOL WAS GIVEN, LATEST TEMP WAS 100. PATIENT IS SWEATING PROFUSELY.
--- NOTE | 2021-10-13 01:16 | NUR ---
CALLED RT MANCUSO FOR STAT EKG.
[2021-10-13] MEDS: IV 1/2NS 1000 ML 1,000 ML IV SCH (02:40)
--- NOTE | 2021-10-13 04:03 | NUR ---
INFORMED DR PASTOR RE: TEMP 101.3 PER AXILLA, TROPONIN RESULT OF 8.
[2021-10-13] MEDS: ACETAMINOPHEN 650 MG/20.3 ML UDC PEG PRN ×3 (04:13→17:45)
--- NOTE | 2021-10-13 04:14 | NUR ---
ICE PACKS PLACED ON THE FOREHEAD AND GROIN AREA.
[2021-10-13] MEDS: BACLOFEN (10 MG) 10 MG TABLET GT SCH ×3 (04:24→21:17)
[2021-10-13 04:52] VITALS: BP 133/87
[2021-10-13 04:54] VITALS: BP 131/87
[2021-10-13] MEDS: NS 0.9% IV SCH ×3 (04:59→21:54)
[2021-10-13] MEDS: CEFTAZIDIME IV SCH ×3 (04:59→21:54)
[2021-10-13] MEDS: AVIBACTAM IV SCH ×3 (04:59→21:54)
[2021-10-13] MEDS: BLOOD SUGAR DIAGNOSTIC 1 EACH STRIP IN SCH ×4 (06:00→18:26)
--- NOTE | 2021-10-13 06:41 | NUR ---
TRACER BULLET SECTION SUPERVISOR CLOSING NOTES: PATIENT IN BED, OBTUNDED, NO S/S OF DISTRESS NOTED. NOT MOANING. HOB ELEVATED AT ALL TIMES, WITH GT FEEDING RUNNING, NO RESIDUAL. BED ALARM ON. BED IN LOWEST AND LOCKED POSITION.HEELS OFFLOADED, TURNED AND REPOSITIONED Q2 HOURS. DRESSING CHANGED ON THE SACRAL AREA, AND ON THE POSTERIOR SCALP.
--- NOTE | 2021-10-13 06:41 | NUR ---
blood sugar=82, no insulin coverage.
--- NOTE | 2021-10-13 07:30 | NUR ---
RN OPENING NOTES PATIENT RECEIVED IN BED, OBTUNDED. ON MECHANICAL VENT TOLERATING SETTINGS WELL WITH O2 SAT OF 98%. TELE MONITOR READING SINUS TACHY 124 BPM AT THIS TIME. SKIN IS WARM TO TOUCH. G-TUBE IN PLACE AND PATENT. IV ACCESS INTACT AND PATENT. HOB ELEVATED FOR ASPIRATION PRECAUTION. SAFETY MEASURES IN PLACE: BED IN LOWEST POSITION, WHEELS LOCKED, SIDE RAILS UP X2, CALL LIGHT WITHIN REACH. WILL CONTINUE TO MONITOR.
[2021-10-13 07:34] LABS: CALCIUM, SERUM 10.3 mg/dL (8.5-10.1); CREATININE 1.3 mg/dL (0.6-1.3); MAGNESIUM 2.5 mg/dL (1.8-2.4); PHOSPHORUS 4.2 mg/dL (2.5-4.9); POTASSIUM 4.6 mmol/L (3.5-5.1)
[2021-10-13 07:46] LABS: BASOPHILS # (AUTO) 0.1 K/uL (0.0-0.2); BASOPHILS % (AUTO) 0.5 % (0.0-2.0); EOSINOPHILS % (AUTO) 0.4 % (0.0-6.0); HEMATOCRIT 35 % (39-51); HEMOGLOBIN 11.1 g/dL (13.5-17.5); LYMPHOCYTES # (AUTO) 4.4 K/uL (0.8-4.8); LYMPHOCYTES % (AUTO) 23.7 % (20.0-44.0); MEAN CORPUSCULAR HGB CONC 32 g/dl (31.0-36.0); MEAN CORPUSCULAR VOLUME 101 fL (80-96); MONOCYTES # (AUTO) 1.3 K/uL (0.1-1.30); NEUTROPHILS # (AUTO) 12.8 K/uL (1.8-8.9); NEUTROPHILS % (AUTO) 68.4 % (43.0-81.0); PLATELET COUNT (AUTO) 256 K/uL (150-450); RED BLOOD CELL COUNT(AUTO) 3.45 MIL/uL (4.5-6.0); WHITE BLOOD COUNT (AUTO) 18.7 K/uL (4.3-11.0)
[2021-10-13 08:00] VITALS: BP 142/50
[2021-10-13] MEDS: CHLORHEXIDINE GLUCONATE 15 ML UDC MM SCH ×2 (08:57→21:17)
[2021-10-13] MEDS: LEVETIRACETAM SOL (5 ML) 100 MG/ML UDC GT SCH ×2 (08:57→21:17)
[2021-10-13] MEDS: FERROUS SULFATE UDC 300 MG/5 ML UDC GT SCH (08:58)
[2021-10-13] MEDS: VALPROIC ACID 250 MG/5 ML UDC GT SCH ×3 (08:58→17:45)
[2021-10-13] MEDS: PANTOPRAZOLE 40 MG/PACK PACK GT SCH (08:58)
[2021-10-13] MEDS: ZINC SULFATE 220 MG CAPSULE GT SCH (08:58)
[2021-10-13] MEDS: AMLODIPINE BESYLATE 5 MG TABLET GT SCH (08:58)
[2021-10-13] MEDS: DOCUSATE SODIUM 100 MG CAPSULE PO SCH (08:59)
[2021-10-13] MEDS: METOPROLOL TARTRATE 25 MG TABLET GT SCH ×2 (08:59→17:45)
[2021-10-13] MEDS: MULTIVITAMINS,THERAGRAN 1 UDTAB TABLET GT SCH (09:00)
--- NOTE | 2021-10-13 09:00 | NUR ---
RN NOTES TEMP OF 100.6. TYLENOL GIVEN AND COOLING MEASURES APPLIED. WILL CONTINUE TO MONITOR
[2021-10-13] MEDS: THERAHONEY GEL 1.5 OZ TUBE TP SCH (09:04)
[2021-10-13] MEDS: ARGININE/GLUTAMINE/CALCIUM BMB 1 EACH POWD.PACK GT SCH ×2 (09:04→17:46)
[2021-10-13] MEDS: PROSOURCE / PROSTAT (PYXIS) 30 ML UDC GT SCH (09:04)
--- NOTE | 2021-10-13 09:15 | NUR ---
RN NOTES TEMP 100.5. WILL CONTINUE TO MONITOR
--- NOTE | 2021-10-13 09:30 | NUR ---
RN NOTES APPLIED COOLING MEASURES TO BRING DOWN TEMPERATURE. ICE PACKS TO GROIN AREA AND FOREHEAD, MINIMAL LAYERS. WILL CONTINUE MONITORING
--- NOTE | 2021-10-13 09:30 | NUR ---
RN NOTES TEMP 100.2. WILL CONTINUE TO MONITOR
--- NOTE | 2021-10-13 15:30 | NUR ---
RN NOTES G-TUBE FEEDING HELD. RESTART AGAIN IN 4 HOURS.
[2021-10-13] MEDS: ASCORBIC ACID 500 MG TABLET GT SCH (17:45)
[2021-10-13] MEDS: IV 1/2NS 1000 ML 1,000 ML IV PRN (17:55)
--- NOTE | 2021-10-13 18:59 | NUR ---
RN CLOSING NOTES PATIENT IN BED, OBTUNDED. ON MECHANICAL VENT TOLERATING SETTINGS WELL WITH O2 SAT OF 97%. TELE MONITOR READING SINUS TACHY 119 BPM AT THIS TIME. PATIENT REMAINED ST AROUND 111-150 BPM THROUGH OUT SHIFT. MILD TREMORS NOTED, GAVE ATIVAN X2. PATIENT TEMP MAX WAS 101.0, GAVE TYLENOL X2 AND PROVIDED COOLING MEASURES THROUGH OUT SHIFT. PATIENT RESPONDED WELL TO INTERVENTIONS. SEEN BY DR MATTHEWS AND NOTIFIED OF PATIENTS CONDITION. G-TUBE IN PLACE AND PATENT. IV ACCESS INTACT AND PATENT. HOB ELEVATED FOR ASPIRATION PRECAUTION. SAFETY MEASURES IN PLACE: BED IN LOWEST POSITION, WHEELS LOCKED, SIDE RAILS UP X2, CALL LIGHT WITHIN REACH. WILL ENDORSE TO SURVEY RESEARCH TEACHER NURSE FOR JENNY.
--- NOTE | 2021-10-13 19:15 | NUR ---
HEAD WOOD GRINDER OPENING NOTES RECEIVED PATIENT ON BED; OBTUNDED. ON MECHANICAL VENTILATOR; SETTINGS WELL TOLERATED. WITH O2 SATURATION OF 98%. ON TELE MONITOR WITH READING SINUS TACHYCARDIA HR 117. WITH G-TUBE IN PLACED; PATENT AND INTACT. WITH IV ACCESS AT RIGHT IJ INTACT. HOB ELEVATED FOR ASPIRATION PRECAUTION. SAFETY MEASURES IMPLEMENTED: BED IN LOWEST LOCKED POSITION, SIDE RAILS UP X2, CALL BELLA WITHIN EASY REACH. WILL CONTINUE TO MONITOR.
[2021-10-13] MEDS: GLUCERNA 1.2 1,000 ML BOTTLE NG PRN (20:31)
[2021-10-13] MEDS ORDERED: AMIKACIN 1,000 MG in IV D5W 100 ML IV ONE (21:00)
[2021-10-13] MEDS: SENNOSIDES 8.6 MG TABLET GT SCH (21:17)
[2021-10-13] MEDS: ATORVASTATIN 10 MG TABLET GT SCH (21:17)
[2021-10-13 22:30] VITALS: BP 156/90
[2021-10-14] MEDS: BLOOD SUGAR DIAGNOSTIC 1 EACH STRIP IN SCH ×4 (00:08→17:24)
--- NOTE | 2021-10-14 00:11 | NUR ---
RN PEDIATRIC ICU NOTES BLOOD SUGAR CHECKED WITH RESULT OF 98 MG/DL; NO INSULIN COVERAGE GIVEN.
[2021-10-14] MEDS: BACLOFEN (10 MG) 10 MG TABLET GT SCH ×3 (05:02→22:01)
[2021-10-14] MEDS: CEFTAZIDIME IV SCH ×3 (05:02→23:00)
[2021-10-14] MEDS: NS 0.9% IV SCH ×3 (05:02→23:00)
[2021-10-14] MEDS: AVIBACTAM IV SCH ×3 (05:02→23:00)
[2021-10-14] MEDS: LORAZEPAM INJ 2 MG/ML VIAL IV PRN (06:51)
--- NOTE | 2021-10-14 07:15 | NUR ---
PRODUCTION SPECIALIST CLOSING NOTES PATIENT IS IN BED, OBTUNDED. ON MECHANICAL VENT; SETTINGS WELL TOLERATED. WITH O2 SAT OF 98%. TELE MONITOR READING SINUS TACHY 120 BPM. G-TUBE IN PLACED; PATENT AND INTACT. IV ACCESS AT RIGHT IJ WITH D5NS 1L REGULATED AT 100 ML/HR. SAFETY MEASURES IN PLACED: HEAD OF BED ELEVATED FOR ASPIRATION PRECAUTION, BED IN LOWEST LOCKED POSITION, SIDE RAILS UP X2, CALL BELLA WITHIN EASY REACH. ENDORSED TO MORNING NURSE FOR JENNY.
[2021-10-14 08:00] VITALS: BP 178/91
--- NOTE | 2021-10-14 08:00 | NUR ---
RN NOTES PATIENT NOTED WITH TEMPERATURE OF 100.8. TYLENOL GIVEN ORDERED. COOLING MEASURES PROVIDED. WILL CONTINUE TO MONITOR ACCORDINGLY.
[2021-10-14] MEDS: CHLORHEXIDINE GLUCONATE 15 ML UDC MM SCH ×2 (08:26→22:00)
[2021-10-14] MEDS: FERROUS SULFATE UDC 300 MG/5 ML UDC GT SCH (08:26)
[2021-10-14] MEDS: LEVETIRACETAM SOL (5 ML) 100 MG/ML UDC GT SCH ×2 (08:26→22:01)
[2021-10-14] MEDS: PANTOPRAZOLE 40 MG/PACK PACK GT SCH (08:27)
[2021-10-14] MEDS: ZINC SULFATE 220 MG CAPSULE GT SCH (08:27)
[2021-10-14] MEDS: ACETAMINOPHEN 650 MG/20.3 ML UDC PEG PRN ×2 (08:27→22:00)
[2021-10-14] MEDS: VALPROIC ACID 250 MG/5 ML UDC GT SCH ×3 (08:27→16:40)
[2021-10-14] MEDS: DOCUSATE SODIUM 100 MG CAPSULE PO SCH (08:27)
[2021-10-14] MEDS: MULTIVITAMINS,THERAGRAN 1 UDTAB TABLET GT SCH (08:27)
[2021-10-14] MEDS: ARGININE/GLUTAMINE/CALCIUM BMB 1 EACH POWD.PACK GT SCH ×2 (08:27→16:39)
[2021-10-14] MEDS: AMLODIPINE BESYLATE 5 MG TABLET GT SCH (08:27)
[2021-10-14] MEDS: METOPROLOL TARTRATE 25 MG TABLET GT SCH ×2 (08:28→16:41)
[2021-10-14] MEDS: PROSOURCE / PROSTAT (PYXIS) 30 ML UDC GT SCH (08:29)
[2021-10-14] MEDS: THERAHONEY GEL 1.5 OZ TUBE TP SCH (08:29)
--- NOTE | 2021-10-14 09:00 | NUR ---
RN NOTE RECHECKED TEMP, WENT DOWN TO 100F. WILL CONTINUE TO MONITOR.
[2021-10-14] MEDS: AMIKACIN 500 MG in IV D5W 100 ML IV SCH ×2 (09:18→22:00)
[2021-10-14] MEDS: IV 1/2NS 1000 ML 1,000 ML IV PRN ×2 (09:22→22:20)
[2021-10-14] MEDS: INSULIN REGULAR, HUMAN 100 UNIT/ML 3 ML VIAL SQ PRN ×2 (11:25→17:24)
[2021-10-14] MEDS: GLUCERNA 1.2 1,000 ML BOTTLE NG PRN (11:27)
[2021-10-14 12:00] VITALS: BP 99/57
[2021-10-14 12:09] LABS: BASOPHILS # (AUTO) 0.1 K/uL (0.0-0.2); BASOPHILS % (AUTO) 0.5 % (0.0-2.0); EOSINOPHILS % (AUTO) 0.2 % (0.0-6.0); HEMATOCRIT 34 % (39-51); HEMOGLOBIN 10.6 g/dL (13.5-17.5); LYMPHOCYTES # (AUTO) 2.8 K/uL (0.8-4.8); LYMPHOCYTES % (AUTO) 24.2 % (20.0-44.0); MEAN CORPUSCULAR HGB CONC 32 g/dl (31.0-36.0); MEAN CORPUSCULAR VOLUME 100 fL (80-96); MONOCYTES % (AUTO) 8.9 % (2.0-12.0); NEUTROPHILS # (AUTO) 7.6 K/uL (1.8-8.9); NEUTROPHILS % (AUTO) 66.2 % (43.0-81.0); PLATELET COUNT (AUTO) 217 K/uL (150-450); RED BLOOD CELL COUNT(AUTO) 3.34 MIL/uL (4.5-6.0); WHITE BLOOD COUNT (AUTO) 11.5 K/uL (4.3-11.0)
[2021-10-14 12:37] LABS: CALCIUM, SERUM 9.4 mg/dL (8.5-10.1); CREATININE 1.3 mg/dL (0.6-1.3); MAGNESIUM 2.5 mg/dL (1.8-2.4); POTASSIUM 4.1 mmol/L (3.5-5.1)
--- NOTE | 2021-10-14 14:00 | NUR ---
RN NOTES G-TUBE FEEDING TURNED OFF ORDERED.
--- NOTE | 2021-10-14 14:20 | NUR ---
RN NOTES STARTED ON VIMPAT ORDERED. 2 RN VERIFIED.
[2021-10-14] MEDS ORDERED: LACOSAMIDE 200 MG in IV NS 0.9% 100 ML IV ONE (14:30)
[2021-10-14 16:00] VITALS: BP 109/65
[2021-10-14] MEDS: ASCORBIC ACID 500 MG TABLET GT SCH (17:12)
--- NOTE | 2021-10-14 18:00 | NUR ---
RN NOTES G-TUBE FEEDING TURNED ON. PLACEMENT CHECKED VIA AUSCULTATION.
--- NOTE | 2021-10-14 18:36 | NUR ---
LOG ROPER CLOSING NOTES PATIENT IN BED; OBTUNDED, OPENS EYES. ON MECHANICAL VENTILATOR; SETTINGS WELL TOLERATED. WITH O2 SATURATION OF 96%. ON TELE MONITOR WITH READING SR HR AT 85. WITH G-TUBE, ONGOING FEEDING OF GLUCERNA AT 75 CC/HR X 20 HOURS; PATENT AND IN PLACE, NO RESIDUAL NOTED. WITH IV ACCESS AT RIGHT IJ INTACT, ONGOING 1/2 NS AT 100CC/HR. CONDOM CATHETER NOTED DRAINING CLEAR YELLOW COLORED URINE. HOB ELEVATED FOR ASPIRATION PRECAUTION. SAFETY MEASURES IMPLEMENTED: BED IN LOWEST LOCKED POSITION, SIDE RAILS UP X2, CALL BELLA WITHIN EASY REACH. ALL NEEDS ATTENDED AND MET. DUE MEDS GIVEN ORDERED. WILL ENDORSE TO ONCOMING SHIFT FOR JENNY.
--- NOTE | 2021-10-14 19:15 | NUR ---
AIRPLANE COVER MAKER OPENING NOTES: RECEIVED PATIENT IN BED, OBTUNDED, NO S/S OF DISTRESS NOTED. NOT IN PAIN. HOB ELEVATED AT ALL TIMES, WITH GT FEEDING RUNNING AT 75CC/HOUR. WITH TRACH INTACT DRESSING CLEAN, DRY AND INTACT. ON TELE MONITOR WITH SR 81. HEELS OFFLOADED. ON LOW AIR MATTRESS.
[2021-10-14 20:00] VITALS: BP 165/100
--- NOTE | 2021-10-14 20:43 | NUR ---
TEMP=99.9, ICE PACKS PLACED ON BOTH AXILLAE.
[2021-10-14 21:15] VITALS: BP 115/69
[2021-10-14 21:49] VITALS: BP 100/55
[2021-10-14] MEDS: LACOSAMIDE 50 MG TABLET PO SCH (22:01)
[2021-10-14] MEDS: ATORVASTATIN 10 MG TABLET GT SCH (22:01)
[2021-10-14] MEDS: SENNOSIDES 8.6 MG TABLET GT SCH (22:02)
[2021-10-15] VITALS: BP 102/57
[2021-10-15] MEDS: INSULIN REGULAR, HUMAN 100 UNIT/ML 3 ML VIAL SQ PRN ×4 (01:06→17:48)
[2021-10-15] MEDS: LORAZEPAM INJ 2 MG/ML VIAL IV PRN ×4 (01:55→19:43)
--- NOTE | 2021-10-15 03:51 | NUR ---
According to CARLEE Gleason, patient had episode of seizure at 0150, ativan was given.
[2021-10-15 03:59] VITALS: BP 120/70
[2021-10-15 04:00] VITALS: BP 120/70
--- NOTE | 2021-10-15 05:12 | NUR ---
TEMP RECHECKED= 99.9.
[2021-10-15] MEDS: BACLOFEN (10 MG) 10 MG TABLET GT SCH ×3 (05:54→20:41)
[2021-10-15] MEDS: ACETAMINOPHEN 650 MG/20.3 ML UDC PEG PRN ×2 (05:54→20:41)
[2021-10-15] MEDS: CEFTAZIDIME IV SCH ×3 (05:55→20:42)
[2021-10-15] MEDS: NS 0.9% IV SCH ×3 (05:55→20:42)
[2021-10-15] MEDS: AVIBACTAM IV SCH ×3 (05:55→20:42)
[2021-10-15] MEDS: BLOOD SUGAR DIAGNOSTIC 1 EACH STRIP IN SCH ×4 (06:00→17:46)
--- NOTE | 2021-10-15 06:25 | NUR ---
blood sugar checked=88, no insulin coverage needed.
[2021-10-15 07:01] LABS: BASOPHILS # (AUTO) 0.1 K/uL (0.0-0.2); BASOPHILS % (AUTO) 0.4 % (0.0-2.0); EOSINOPHILS % (AUTO) 0.4 % (0.0-6.0); HEMATOCRIT 34 % (39-51); HEMOGLOBIN 10.8 g/dL (13.5-17.5); LYMPHOCYTES # (AUTO) 5.3 K/uL (0.8-4.8); LYMPHOCYTES % (AUTO) 32.1 % (20.0-44.0); MEAN CORPUSCULAR HGB CONC 32 g/dl (31.0-36.0); MEAN CORPUSCULAR VOLUME 100 fL (80-96); MONOCYTES # (AUTO) 1.5 K/uL (0.1-1.30); MONOCYTES % (AUTO) 9.2 % (2.0-12.0); NEUTROPHILS # (AUTO) 9.6 K/uL (1.8-8.9); NEUTROPHILS % (AUTO) 57.9 % (43.0-81.0); PLATELET COUNT (AUTO) 245 K/uL (150-450); RED BLOOD CELL COUNT(AUTO) 3.41 MIL/uL (4.5-6.0); WHITE BLOOD COUNT (AUTO) 16.6 K/uL (4.3-11.0)
[2021-10-15 07:11] LABS: CALCIUM, SERUM 10.3 mg/dL (8.5-10.1); CREATININE 1.3 mg/dL (0.6-1.3); MAGNESIUM 2.2 mg/dL (1.8-2.4); PHOSPHORUS 3.6 mg/dL (2.5-4.9)
--- NOTE | 2021-10-15 07:17 | NUR ---
DESIGN AND SALES CONSULTANT OPENING NOTES RECEIVED PATIENT ON BED; OBTUNDED. ON MECHANICAL VENTILATOR; SETTINGS WELL TOLERATED. WITH O2 SATURATION OF 96%. ON TELE MONITOR WITH READING SINUS TACHYCARDIA HR AT140'S. WITH G-TUBE IN PLACED, ONGOING FEEDING OF GLUCERNA AT 75 CC/HR X 20 HOURS; PATENT AND IN PLACE, NO RESIDUAL NOTED. WITH IV ACCESS AT RIGHT IJ INTACT, ONGOING 1/2 NS AT 100CC/HR. HOB ELEVATED FOR ASPIRATION PRECAUTION. SAFETY MEASURES IMPLEMENTED: BED IN LOWEST LOCKED POSITION, SIDE RAILS UP X2, CALL BELLA WITHIN EASY REACH. WILL CONTINUE TO MONITOR PATIENT ACCORDINGLY.
[2021-10-15 07:23] LABS: POTASSIUM 4.8 mmol/L (3.5-5.1)
[2021-10-15 08:00] VITALS: BP 139/72
[2021-10-15] MEDS: PROSOURCE / PROSTAT (PYXIS) 30 ML UDC GT SCH (08:56)
[2021-10-15] MEDS: CHLORHEXIDINE GLUCONATE 15 ML UDC MM SCH ×2 (08:56→20:41)
[2021-10-15] MEDS: VALPROIC ACID 250 MG/5 ML UDC GT SCH ×3 (08:56→16:53)
[2021-10-15] MEDS: MULTIVITAMINS,THERAGRAN 1 UDTAB TABLET GT SCH (08:56)
[2021-10-15] MEDS: DOCUSATE SODIUM 100 MG CAPSULE PO SCH (08:57)
[2021-10-15] MEDS: ZINC SULFATE 220 MG CAPSULE GT SCH (08:57)
[2021-10-15] MEDS: LEVETIRACETAM SOL (5 ML) 100 MG/ML UDC GT SCH ×2 (08:57→20:41)
[2021-10-15] MEDS: ARGININE/GLUTAMINE/CALCIUM BMB 1 EACH POWD.PACK GT SCH ×2 (08:57→16:53)
[2021-10-15] MEDS: PANTOPRAZOLE 40 MG/PACK PACK GT SCH (08:57)
[2021-10-15] MEDS: FERROUS SULFATE UDC 300 MG/5 ML UDC GT SCH (08:57)
[2021-10-15] MEDS: AMLODIPINE BESYLATE 5 MG TABLET GT SCH (08:58)
[2021-10-15] MEDS: METOPROLOL TARTRATE 25 MG TABLET GT SCH ×2 (08:58→16:53)
[2021-10-15] MEDS: LACOSAMIDE 50 MG TABLET PO SCH ×2 (08:59→20:41)
[2021-10-15] MEDS: AMIKACIN 500 MG in IV D5W 100 ML IV SCH ×2 (09:00→21:00)
[2021-10-15] MEDS: THERAHONEY GEL 1.5 OZ TUBE TP SCH (09:00)
--- NOTE | 2021-10-15 11:34 | NUR ---
RN NOTES AMIKACIN DOSE AT 0900 AM NOT ADMINISTERED. DUE TO AMIKACIN TROUGH STILL PENDING. AMIKACIN TROUGH RESULT WILL TAKE 1-2 DAYS DUE TO THE SPECIMEN WAS SENT OUT PER [facility] OF LABORATORY. INFORMED MAITE OF PHARMACY DEPARTMENT AND WAS TOLD TO HOLD THE DOSE UNTIL AMIKACIN TROUGH RESULT IS AVAILABLE.
[2021-10-15] MEDS: GLUCERNA 1.2 1,000 ML BOTTLE NG PRN (11:41)
[2021-10-15] MEDS: IV 1/2NS 1000 ML 1,000 ML IV PRN (11:51)
[2021-10-15] MEDS: ASCORBIC ACID 500 MG TABLET GT SCH (17:46)
[2021-10-15 18:00] VITALS: BP 99/58
--- NOTE | 2021-10-15 18:43 | NUR ---
TOUR LEADER CLOSING NOTES PATIENT ON BED; OBTUNDED. ON MECHANICAL VENTILATOR; SETTINGS WELL TOLERATED. WITH O2 SATURATION OF 100%. ON TELE MONITOR WITH READING SR-ST HR AT 90'S TO 130'S. WITH G-TUBE IN PLACED, ONGOING FEEDING OF GLUCERNA AT 75 CC/HR X 20 HOURS; PATENT AND IN PLACE, NO RESIDUAL NOTED. WITH IV ACCESS AT RIGHT IJ INTACT, ONGOING 1/2 NS AT 100CC/HR. HOB ELEVATED FOR ASPIRATION PRECAUTION. SAFETY MEASURES IMPLEMENTED: BED IN LOWEST LOCKED POSITION, SIDE RAILS UP X2, CALL BELLA WITHIN EASY REACH. ALL NEEDS ATTENDED AND MET. DUE MEDS GIVEN ORDERED. WILL ENDORSE TO ONCOMING SHIFT FOR JENNY.
--- NOTE | 2021-10-15 19:15 | NUR ---
rn opening notes Patient is obtunded opens eyes at times. Patient is calm in no signs of distress currently. No sweating no signs of seizure current sinus on the monitor at 96bpm. Seizure, aspiration, and fall precautions in place. O2 at 100% via mech vent. RIJ patent and flushes white port 1/2 NS running at 100cc/hr. Glucerna running at 75ml/hr. Will continue to monitor.
--- NOTE | 2021-10-15 19:33 | NUR ---
rn opening notes Patient is obtunded opens eyes at times. Patient is calm in no signs of distress currently. No sweating no signs of seizure current sinus on the monitor at 96bpm. Seizure, aspiration, a nd
--- NOTE | 2021-10-15 19:47 | NUR ---
Patient HR in 140s seen to be perspiring and seizing PRN Ativan given as per MD order.
[2021-10-15 20:00] VITALS: BP_SYST 168
[2021-10-15] MEDS ORDERED: AMIKACIN 300 MG in IV D5W 100 ML IV ONE (21:30)
[2021-10-15] MEDS: ATORVASTATIN 10 MG TABLET GT SCH (21:52)
[2021-10-15] MEDS: SENNOSIDES 8.6 MG TABLET GT SCH (21:52)
--- NOTE | 2021-10-15 21:55 | NUR ---
Patient's HR went back down to 72 appears calm again. BP 104/62
[2021-10-15] MEDS ORDERED: AMIKACIN 250 MG/ML VIAL ONE (22:09)
[2021-10-16] VITALS: BP 104/62
[2021-10-16] MEDS: BLOOD SUGAR DIAGNOSTIC 1 EACH STRIP IN SCH ×4 (00:22→18:16)
[2021-10-16] MEDS: LORAZEPAM INJ 2 MG/ML VIAL IV PRN ×4 (02:09→20:08)
[2021-10-16] MEDS: IV 1/2NS 1000 ML 1,000 ML IV PRN ×2 (02:31→17:56)
[2021-10-16] MEDS: GLUCERNA 1.2 1,000 ML BOTTLE NG PRN ×2 (02:52→17:56)
[2021-10-16 04:00] VITALS: BP 118/68
[2021-10-16 04:30] VITALS: BP 102/62
[2021-10-16] MEDS: CEFTAZIDIME IV SCH ×3 (04:32→20:20)
[2021-10-16] MEDS: AVIBACTAM IV SCH ×3 (04:32→20:20)
[2021-10-16] MEDS: NS 0.9% IV SCH ×3 (04:32→20:20)
[2021-10-16] MEDS: BACLOFEN (10 MG) 10 MG TABLET GT SCH ×3 (04:33→20:40)
--- NOTE | 2021-10-16 06:19 | NUR ---
RN CLOSING NOTES Patient is obtunded. Had x3 episodes of full body tremors with high HR 140s and diaphoresis. PRN Ativan given with effect all 3 times. No hypo or hyperglycemia. While not in seizure HR ranges from 70-115 -SR/ST on monitor. Clear yellow urine to condom cath -800cc output. Patient tolerating feeding well no residual -200cc free water flushes to GT q4h. Wound care completed and pictures taken. Patient is currently now calm with HR 103 and O2 at 100%.
[2021-10-16 06:28] LABS: BASOPHILS # (AUTO) 0.1 K/uL (0.0-0.2); BASOPHILS % (AUTO) 0.5 % (0.0-2.0); EOSINOPHILS % (AUTO) 0.9 % (0.0-6.0); HEMATOCRIT 36 % (39-51); HEMOGLOBIN 11.7 g/dL (13.5-17.5); LYMPHOCYTES # (AUTO) 4.6 K/uL (0.8-4.8); LYMPHOCYTES % (AUTO) 32.7 % (20.0-44.0); MEAN CORPUSCULAR HGB CONC 32 g/dl (31.0-36.0); MEAN CORPUSCULAR VOLUME 100 fL (80-96); MONOCYTES # (AUTO) 1.3 K/uL (0.1-1.30); MONOCYTES % (AUTO) 8.8 % (2.0-12.0); NEUTROPHILS # (AUTO) 8.1 K/uL (1.8-8.9); NEUTROPHILS % (AUTO) 57.1 % (43.0-81.0); PLATELET COUNT (AUTO) 215 K/uL (150-450); RED BLOOD CELL COUNT(AUTO) 3.65 MIL/uL (4.5-6.0); WHITE BLOOD COUNT (AUTO) 14.2 K/uL (4.3-11.0)
[2021-10-16] MEDS: ACETAMINOPHEN 650 MG/20.3 ML UDC PEG PRN (06:54)
[2021-10-16 07:09] LABS: CALCIUM, SERUM 9.8 mg/dL (8.5-10.1); CREATININE 1.1 mg/dL (0.6-1.3); MAGNESIUM 2.4 mg/dL (1.8-2.4); PHOSPHORUS 3.3 mg/dL (2.5-4.9); POTASSIUM 4.3 mmol/L (3.5-5.1)
--- NOTE | 2021-10-16 07:18 | NUR ---
TEACHER INSTRUMENTAL OPENING NOTE RECEIVED PATIENT ON BED; OBTUNDED. WITH TRACH, ON MECHANICAL VENTILATOR; SETTINGS WELL TOLERATED SATURATING 98-100%. ON TELE MONITOR WITH READING SR 97 HR. WITH G-TUBE WITH ONGOING TUBE FEEDING OF GLUCERNA AT 75 CC/HR X 20 HOURS, INFUSING WELL WITH NO RESIDUAL NOTED. WITH IV ACCESS AT RIGHT IJ COVERED WITH DRESSING DRY AND INTACT. WITH ONGOING IVF OF 1/2 NS AT 100CC/HR. HOB ELEVATED FOR ASPIRATION PRECAUTION. SAFETY MEASURES IMPLEMENTED: BED IN LOWEST LOCKED POSITION, SIDE RAILS UP AND PADDED, CALL BELLA WITHIN EASY REACH. NOTED DIAPHORESIS, PATIENT HAD SEIZURE A FEW MINUTES BEFORE ENDORSEMENT BUT WAS JUST GIVEN ATIVAN AROUND. PATIENT APPEARS COMFORTABLE, WITH NO SEIZURE ACTIVITY, WITH HR OF 89.
[2021-10-16] MEDS: VALPROIC ACID 250 MG/5 ML UDC GT SCH ×3 (09:43→16:26)
[2021-10-16] MEDS: FERROUS SULFATE UDC 300 MG/5 ML UDC GT SCH (09:43)
[2021-10-16] MEDS: LEVETIRACETAM SOL (5 ML) 100 MG/ML UDC GT SCH ×2 (09:44→20:40)
[2021-10-16] MEDS: AMLODIPINE BESYLATE 5 MG TABLET GT SCH (09:44)
[2021-10-16] MEDS: METOPROLOL TARTRATE 25 MG TABLET GT SCH ×2 (09:44→16:25)
[2021-10-16] MEDS: LACOSAMIDE 50 MG TABLET PO SCH ×2 (09:45→20:40)
[2021-10-16] MEDS: CHLORHEXIDINE GLUCONATE 15 ML UDC MM SCH ×2 (09:45→20:40)
[2021-10-16] MEDS: PANTOPRAZOLE 40 MG/PACK PACK GT SCH (09:45)
[2021-10-16] MEDS: DOCUSATE SODIUM 100 MG CAPSULE PO SCH (09:45)
[2021-10-16] MEDS: MULTIVITAMINS,THERAGRAN 1 UDTAB TABLET GT SCH (09:45)
[2021-10-16] MEDS: ZINC SULFATE 220 MG CAPSULE GT SCH (09:45)
[2021-10-16] MEDS: ARGININE/GLUTAMINE/CALCIUM BMB 1 EACH POWD.PACK GT SCH ×2 (09:47→16:25)
[2021-10-16] MEDS: PROSOURCE / PROSTAT (PYXIS) 30 ML UDC GT SCH (09:47)
[2021-10-16] MEDS: AMIKACIN 300 MG in IV D5W 100 ML IV SCH ×2 (10:30→22:32)
--- NOTE | 2021-10-16 11:30 | NUR ---
JOB COUNSELOR NOTE SEEN BY DR. LEUNG.
[2021-10-16] MEDS: THERAHONEY GEL 1.5 OZ TUBE TP SCH (12:12)
--- NOTE | 2021-10-16 15:10 | NUR ---
BLOOD BANK BOOKING CLERK NOTE PATIENT HAD GRAND MAL SEIZURE. ATIVAN GIVEN ORDERED. SAFETY MEASURES ENSURED. COMFORT MEASURES PROVIDED. IN STABLE CONDITION.
[2021-10-16] MEDS: ASCORBIC ACID 500 MG TABLET GT SCH (17:48)
--- NOTE | 2021-10-16 18:44 | NUR ---
SENIOR SOLUTIONS CONSULTANT CLOSING NOTE PATIENT ON BED; OBTUNDED. WITH TRACH, ON MECHANICAL VENTILATOR; SETTINGS WELL TOLERATED SATURATING 98-100%. ON TELE MONITOR WITH READING SR 97 HR. WITH G-TUBE WITH ONGOING TUBE FEEDING OF GLUCERNA AT 75 CC/HR X 20 HOURS, INFUSING WELL WITH NO RESIDUAL NOTED. WITH IV ACCESS AT RIGHT IJ COVERED WITH DRESSING DRY AND INTACT. WITH ONGOING IVF OF 1/2 NS AT 100CC/HR. HOB ELEVATED FOR ASPIRATION PRECAUTION. SAFETY MEASURES IMPLEMENTED: BED IN LOWEST LOCKED POSITION, SIDE RAILS UP AND PADDED, CALL BELLA WITHIN EASY REACH. NOTED DIAPHORESIS, PATIENT HAD SEIZURE A FEW MINUTES BEFORE ENDORSEMENT BUT WAS JUST GIVEN ATIVAN AROUND. PATIENT APPEARS COMFORTABLE, WITH NO SEIZURE ACTIVITY, WITH HR OF 82.
--- NOTE | 2021-10-16 19:25 | NUR ---
TELE/RN NOTE PT RESTING IN BED, EYES OPEN, OBTUNDED. ON TRACH/VENT AND SAUL SETTINGS WELL. SATURATING 100%. IV ACCESS: R-IJ CATH INTACT/PATENT, RUNNING 1/2 NS @100ML/HR. ON GTF GLUCERNA @75ML/HR. SAUL WELL. NO RESIDUALS NOTED. CONDOM CATH DRAINING CLEAR YELLOW URINE. CONNECTED TO TELE MONITOR, READING ST, HR 108. KEPT HOB ELEVATED. PT IN NO ACUTE DISTRESS. SEIZURE PRECAUTIONS OBSERVED. SAFETY MEASURES IN PLACE. WILL CONT TO MONITOR.
[2021-10-16 20:00] VITALS: BP 155/116
--- NOTE | 2021-10-16 20:08 | NUR ---
RN NOTE NOTED PT HR TO 130'S, FACIAL TWITCHING AND PERSPIRING. GIVEN PRN ATIVAN ORDERED.
--- NOTE | 2021-10-16 20:30 | NUR ---
RN NOTE PT CALM, EYES CLOSED, HR 90'S
[2021-10-16] MEDS: SENNOSIDES 8.6 MG TABLET GT SCH (21:13)
[2021-10-16] MEDS: ATORVASTATIN 10 MG TABLET GT SCH (21:13)
[2021-10-17] VITALS: BP 104/63
[2021-10-17] MEDS: BLOOD SUGAR DIAGNOSTIC 1 EACH STRIP IN SCH ×5 (00:29→23:33)
[2021-10-17] MEDS: MORPHINE SULFATE INJ 2 MG/ML DISP.SYRIN IV PRN ×3 (02:47→22:43)
[2021-10-17 04:00] VITALS: BP 111/67
[2021-10-17] MEDS: NS 0.9% IV SCH ×2 (04:22→13:30)
[2021-10-17] MEDS: CEFTAZIDIME IV SCH ×2 (04:22→13:30)
[2021-10-17] MEDS: AVIBACTAM IV SCH ×2 (04:22→13:30)
[2021-10-17] MEDS: BACLOFEN (10 MG) 10 MG TABLET GT SCH ×3 (04:24→21:55)
[2021-10-17] MEDS: LORAZEPAM INJ 2 MG/ML VIAL IV PRN ×3 (05:50→15:11)
--- NOTE | 2021-10-17 05:50 | NUR ---
RN NOTE NOTED HR TO 140'S, FACIAL TWITCHING AND PERSPIRING. GIVEN PRN ATIVAN ORDERED.
[2021-10-17 06:15] LABS: CALCIUM, SERUM 9.1 mg/dL (8.5-10.1); MAGNESIUM 2.3 mg/dL (1.8-2.4); PHOSPHORUS 3.1 mg/dL (2.5-4.9); POTASSIUM 3.8 mmol/L (3.5-5.1)
[2021-10-17] MEDS: GLUCERNA 1.2 1,000 ML BOTTLE NG PRN ×2 (06:21→23:33)
[2021-10-17 06:44] LABS: BASOPHILS % (AUTO) 0.6 % (0.0-2.0); EOSINOPHILS % (AUTO) 1.9 % (0.0-6.0); HEMATOCRIT 32 % (39-51); HEMOGLOBIN 10.3 g/dL (13.5-17.5); LYMPHOCYTES # (AUTO) 2.6 K/uL (0.8-4.8); LYMPHOCYTES % (AUTO) 32.9 % (20.0-44.0); MEAN CORPUSCULAR HGB CONC 32 g/dl (31.0-36.0); MEAN CORPUSCULAR VOLUME 100 fL (80-96); MONOCYTES # (AUTO) 0.9 K/uL (0.1-1.30); MONOCYTES % (AUTO) 11.1 % (2.0-12.0); NEUTROPHILS # (AUTO) 4.3 K/uL (1.8-8.9); NEUTROPHILS % (AUTO) 53.5 % (43.0-81.0); PLATELET COUNT (AUTO) 179 K/uL (150-450); RED BLOOD CELL COUNT(AUTO) 3.17 MIL/uL (4.5-6.0)
--- NOTE | 2021-10-17 06:51 | NUR ---
RN NOTE NOTED PT HR TO 140'S, PERSPIRING. GIVEN PRN MORPHINE ORDERED.
--- NOTE | 2021-10-17 07:30 | NUR ---
PERSONNEL ASSOCIATE NOTESPT IN BED, ASLEEP, EASY TO AROUSE, NON VERBAL, NO SIGN OF PAIN OR DISTRESS, CALM AT THIS TIME, GT FEEDING INFUSING WELL, KEPT WARM AND COMFORTABLE IN BED.
[2021-10-17] MEDS: METOPROLOL TARTRATE 25 MG TABLET GT SCH ×2 (09:00→17:28)
[2021-10-17] MEDS: AMLODIPINE BESYLATE 5 MG TABLET GT SCH (09:00)
[2021-10-17] MEDS: ARGININE/GLUTAMINE/CALCIUM BMB 1 EACH POWD.PACK GT SCH ×2 (09:34→17:28)
[2021-10-17] MEDS: PROSOURCE / PROSTAT (PYXIS) 30 ML UDC GT SCH (09:34)
[2021-10-17] MEDS: LACOSAMIDE 50 MG TABLET PO SCH ×2 (09:35→21:55)
[2021-10-17] MEDS: FERROUS SULFATE UDC 300 MG/5 ML UDC GT SCH (09:35)
[2021-10-17] MEDS: LEVETIRACETAM SOL (5 ML) 100 MG/ML UDC GT SCH ×2 (09:35→21:55)
[2021-10-17] MEDS: CHLORHEXIDINE GLUCONATE 15 ML UDC MM SCH ×2 (09:36→21:55)
[2021-10-17] MEDS: DOCUSATE SODIUM 100 MG CAPSULE PO SCH (09:36)
[2021-10-17] MEDS: PANTOPRAZOLE 40 MG/PACK PACK GT SCH (09:36)
[2021-10-17] MEDS: ZINC SULFATE 220 MG CAPSULE GT SCH (09:36)
[2021-10-17] MEDS: MULTIVITAMINS,THERAGRAN 1 UDTAB TABLET GT SCH (09:36)
[2021-10-17] MEDS: VALPROIC ACID 250 MG/5 ML UDC GT SCH ×3 (09:50→17:28)
[2021-10-17] MEDS: THERAHONEY GEL 1.5 OZ TUBE TP SCH (09:58)
[2021-10-17] MEDS: AMIKACIN 300 MG in IV D5W 100 ML IV SCH ×2 (10:00→21:58)
--- NOTE | 2021-10-17 10:03 | NUR ---
DOCUMENT PREPARER MICROFILMING NOTES PT SEEN AND EXAMINED BY DR. DANIELS, NO NEW ORDER GIVEN AT THIS TIME.
[2021-10-17] MEDS: IV 1/2NS 1000 ML 1,000 ML IV PRN (11:37)
--- NOTE | 2021-10-17 17:15 | NUR ---
ELECTRON GUN ASSEMBLER NOTES AMIKACIN IV NOT ADMINISTERED, JUST GOT RESULTS OF AMIKACIN LEVEL, PER PHARMACY, THEY WILL SCHEDULE NEXT DOSE TONIGHT.
[2021-10-17] MEDS: ASCORBIC ACID 500 MG TABLET GT SCH (17:28)
--- NOTE | 2021-10-17 18:56 | NUR ---
ESCROW REPRESENTATIVE NOTES PT IN BED, RESTING, NO FACIAL GRIMACING NOTED, PT SEEN BY DR. MATTHEWS, PM CARE PROVIDED, GT FEEDING INFUSING WELL, ALL DUE MEDS GIVEN ORDERED, KEPT CLEAN AND COMFORTABLE.
--- NOTE | 2021-10-17 19:33 | NUR ---
CREDIT CARD CLERK OPENING NOTES PATIENT RECEIVED IN BED, WITH EYES OPEN/OBTUNDED; PER DAY SHIFT NO CHANGES IN VENT SETTINGS AT THIS TIME AND TOLERATING WELL; TELE MONITOR READS SINUS RHYTHM TO SINUS TACHY; PER DAY SHIFT, ATIVAN GIVEN X2; PER MD DO NOT GIVE ATIVAN TONIGHT; RIJ CENTRAL LINE PRESENT WITH 3 LUMENS, FLUSHING WELL; G TUBE PRESENT, PT TOLERATING GTUBE FEEDING WELL; WITH MINIMAL RESIDUALS NOTED; CONDOM CATH PRESENT, WITH YELLOW OUTPUT NOTED; POSSIBLE TRANSFER BACK TO FACILITY BUT NO ORDERS YET; WILL INFORM DAY SHIFT; SAFETY PRECAUTIONS IMPLEMENTED; BED LOCKED IN LOW POSITION; SIDE RAILSX3, WILL CONT PLAN OF CARE AND CONT TO MONITOR;
[2021-10-17 20:00] VITALS: BP 179/66
[2021-10-17] MEDS: SENNOSIDES 8.6 MG TABLET GT SCH (21:55)
[2021-10-17] MEDS: ATORVASTATIN 10 MG TABLET GT SCH (21:55)
--- NOTE | 2021-10-17 22:47 | NUR ---
VALVE REPAIRER RECLAMATION NOTES PT BLOOD PRESSURE 179/66, HR 109; PER MD DO NOT ADMINISTER ATIVAN. MORPHINE GIVEN, WILL CONT TO MONITOR
[2021-10-18] VITALS: BP 130/94
[2021-10-18 01:50] VITALS: BP 130/94
[2021-10-18] MEDS: MORPHINE SULFATE INJ 2 MG/ML DISP.SYRIN IV PRN (02:58)
--- NOTE | 2021-10-18 03:02 | NUR ---
CHRONIC DISEASE EPIDEMIOLOGIST NOTES HEART RATE INCREASING TO 145BPM, CHARGE NURSE AWARE; MORPHINE ADMINISTERED; WILL CONT TO MONITOR
[2021-10-18] MEDS: BACLOFEN (10 MG) 10 MG TABLET GT SCH ×3 (04:10→20:19)
[2021-10-18] MEDS: IV 1/2NS 1000 ML 1,000 ML IV PRN ×2 (04:14→17:28)
[2021-10-18] MEDS: BLOOD SUGAR DIAGNOSTIC 1 EACH STRIP IN SCH ×4 (05:35→23:37)
[2021-10-18] MEDS: ACETAMINOPHEN 650 MG/20.3 ML UDC PEG PRN ×2 (05:36→17:04)
--- NOTE | 2021-10-18 05:41 | NUR ---
SPRINKLING SYSTEM IRRIGATOR NOTES PT NOTED TO HAVE 100.1F; COOLING MEASURES INITIATED; TYLENOL ADMINISTERED PER MD ORDER, WILL CONT TO MONITOR
--- NOTE | 2021-10-18 06:47 | NUR ---
INDUSTRIAL HYGIENE TECHNICIAN CLOSING NOTES PATIENT IN BED, WITH EYES OPEN/OBTUNDED; NO CHANGES IN VENT SETTINGS AND TOLERATING WELL; TELE MONITOR READS SINUS TACHY 130S; PT HR HIGH WHEN BEING MOVED/CHANGED; ALL DUE MEDS GIVEN; RIJ CENTRAL LINE PRESENT WITH 3 LUMENS, FLUSHING WELL; G TUBE PRESENT, PT TOLERATING GTUBE FEEDING WELL; WITH MINIMAL RESIDUALS NOTED; CONDOM CATH PRESENT, WITH YELLOW OUTPUT NOTED OF 800CC; POSSIBLE TRANSFER BACK TO FACILITY BUT NO ORDERS YET; WILL INFORM DAY SHIFT; SAFETY PRECAUTIONS IMPLEMENTED; BED LOCKED IN LOW POSITION; SIDE RAILSX3, WILL CONT ENDORSE CONTINUITY OF CARE TO ONCOMING SHIFT
--- NOTE | 2021-10-18 07:30 | NUR ---
CLUB CAR ATTENDANT NOTES PT IN BED, AWAKE, NON VERBAL, NO SIGN OF PAIN, NO FACIAL GRIMACING, HR AT 115, COOLING MEASURES CONTINUOUSLY PROVIDED, GT FEEDING INFUSING WELL, TOLERATES WELL, KEPT WARM AND COMFORTABLE IN BED.
[2021-10-18 07:32] LABS: MAGNESIUM 2.1 mg/dL (1.8-2.4); PHOSPHORUS 3.4 mg/dL (2.5-4.9); POTASSIUM 4.5 mmol/L (3.5-5.1)
[2021-10-18 08:00] VITALS: BP 125/93
[2021-10-18] MEDS: FERROUS SULFATE UDC 300 MG/5 ML UDC GT SCH (08:09)
[2021-10-18] MEDS: VALPROIC ACID 250 MG/5 ML UDC GT SCH ×3 (08:09→17:04)
[2021-10-18] MEDS: ZINC SULFATE 220 MG CAPSULE GT SCH (08:09)
[2021-10-18] MEDS: MULTIVITAMINS,THERAGRAN 1 UDTAB TABLET GT SCH (08:09)
[2021-10-18] MEDS: PANTOPRAZOLE 40 MG/PACK PACK GT SCH (08:09)
[2021-10-18] MEDS: CHLORHEXIDINE GLUCONATE 15 ML UDC MM SCH ×2 (08:09→20:19)
[2021-10-18] MEDS: DOCUSATE SODIUM 100 MG CAPSULE PO SCH (08:10)
[2021-10-18] MEDS: AMLODIPINE BESYLATE 5 MG TABLET GT SCH (08:10)
[2021-10-18] MEDS: METOPROLOL TARTRATE 25 MG TABLET GT SCH ×2 (08:11→17:05)
[2021-10-18] MEDS: LACOSAMIDE 50 MG TABLET PO SCH ×2 (08:11→20:19)
[2021-10-18] MEDS: LEVETIRACETAM SOL (5 ML) 100 MG/ML UDC GT SCH ×2 (08:15→20:18)
[2021-10-18] MEDS: THERAHONEY GEL 1.5 OZ TUBE TP SCH (08:16)
[2021-10-18 08:22] LABS: BASOPHILS # (AUTO) 0.1 K/uL (0.0-0.2); BASOPHILS % (AUTO) 0.6 % (0.0-2.0); EOSINOPHILS % (AUTO) 0.7 % (0.0-6.0); HEMATOCRIT 32 % (39-51); HEMOGLOBIN 10.1 g/dL (13.5-17.5); LYMPHOCYTES # (AUTO) 1.1 K/uL (0.8-4.8); LYMPHOCYTES % (AUTO) 11.3 % (20.0-44.0); MEAN CORPUSCULAR HGB CONC 32 g/dl (31.0-36.0); MEAN CORPUSCULAR VOLUME 100 fL (80-96); MONOCYTES % (AUTO) 10.1 % (2.0-12.0); NEUTROPHILS # (AUTO) 7.3 K/uL (1.8-8.9); NEUTROPHILS % (AUTO) 77.3 % (43.0-81.0); PLATELET COUNT (AUTO) 170 K/uL (150-450); RED BLOOD CELL COUNT(AUTO) 3.13 MIL/uL (4.5-6.0); WHITE BLOOD COUNT (AUTO) 9.5 K/uL (4.3-11.0)
[2021-10-18] MEDS: LORAZEPAM INJ 2 MG/ML VIAL IV PRN (08:38)
[2021-10-18] MEDS ORDERED: D5W IV ONE (08:42)
[2021-10-18] MEDS: ARGININE/GLUTAMINE/CALCIUM BMB 1 EACH POWD.PACK GT SCH ×2 (08:57→17:04)
[2021-10-18] MEDS: PROSOURCE / PROSTAT (PYXIS) 30 ML UDC GT SCH (08:57)
--- NOTE | 2021-10-18 10:18 | NUR ---
PEDIATRIC NEUROLOGIST NOTES PT NOTED TO HAVE INCREASED HR OF 170'S-180'S, TACHYPNEIC, FACIAL TWITCHING NOTED, DR. DANIELS EXAMINED PT AT BEDSIDE, DR. MATTHEWS INFORMED OF PT'S CURRENT STATUS, ORDERS RECEIVED, NOTED AND CARRIED OUT, WILL CONTINUE TO MONITOR.
[2021-10-18] MEDS: AMIKACIN 300 MG in IV D5W 100 ML IV SCH (10:28)
[2021-10-18] MEDS ORDERED: LORAZEPAM INJ 2 MG/ML VIAL IV ONE (11:00)
--- NOTE | 2021-10-18 12:07 | NUR ---
BRIM GREASER OPERATOR NOTES PT IN BED, AWAKE, NO SEIZURE NOTED AT THIS TIME, HR 107, AFEBRILE AT 98.9, KEPT WARM AND COMFORTABLE, DR. MATTHEWS INFORMED OF VALPROIC LEVEL, AWAITING FOR FURTHER ORDERS.
--- NOTE | 2021-10-18 14:17 | NUR ---
RN NOTES RECEIVED ORDER FROM DR. MATTHEWS TO INCREASE DEPAKENE TO 1250 MG. NOTED AND CARRIED OUT.
[2021-10-18 16:00] VITALS: BP 99/58
[2021-10-18] MEDS: GLUCERNA 1.2 1,000 ML BOTTLE NG PRN (16:55)
[2021-10-18] MEDS: ASCORBIC ACID 500 MG TABLET GT SCH (17:05)
--- NOTE | 2021-10-18 17:39 | NUR ---
RESERVATIONIST NOTES PT SEEN AND EXAMINED BY DR. MATTHEWS.
--- NOTE | 2021-10-18 18:45 | NUR ---
ROLLING CHAIR PUSHER NOTES PT IN BED, EYES OPEN, NOT IN DISTRESS, ON VENT/TRACH, WITH O2 SAT OF 100%, HR 97 AT THIS TIME, PM MEDS GIVEN ORDERED, TOLERATES GT FEEDING, CONDOM CATH DRAINING WELL WITH CLEAR, YELLOW URINE, REPOSITIONED FOR COMFORT, IV FLUIDS INFUSING WELL, KEPT WARM AND COMFORTABLE IN BED.
--- NOTE | 2021-10-18 19:45 | NUR ---
CATERING SERVER OPENING NOTES RECEIVED PATIENT LAYING AWAKE IN BED. A/O X0 OBTUNDED EYES OPEN. PATIENT WITH REGULAR AND UNLABORED BREATHING ON MECH VENT. TOLERATING SETTINGS WELL. NO SIGNS AND SYMPTOMS OF DISTRESS NOTED AT THIS TIME. NO COMPLAINS OF PAIN OR DISCOMFORT AT THIS TIME. PATIENT ON TELE MONITOR READING ST @ 106 BPM IV ACCESS RIJ INFUSING 1/2NS @ 100 ML/HR. IV ACCESS PATENT AND INTACT. SAFETY PRECAUTIONS ENFORCED WITH BED LOCKED AND AT LOWEST POSITION. CALL LIGHT WITHIN REACH AT ALL TIMES. WILL CONTINUE TO MONITOR PATIENT.
[2021-10-18 20:00] VITALS: BP 148/87
[2021-10-18] MEDS: ATORVASTATIN 10 MG TABLET GT SCH (21:08)
[2021-10-18] MEDS: SENNOSIDES 8.6 MG TABLET GT SCH (21:08)
[2021-10-19] VITALS: BP 109/51
[2021-10-19] MEDS: IV 1/2NS 1000 ML 1,000 ML IV PRN (00:23)
[2021-10-19 04:00] VITALS: BP 127/83
[2021-10-19] MEDS: MORPHINE SULFATE INJ 2 MG/ML DISP.SYRIN IV PRN ×2 (04:18→20:30)
[2021-10-19] MEDS: BACLOFEN (10 MG) 10 MG TABLET GT SCH ×3 (04:18→20:46)
[2021-10-19] MEDS: BLOOD SUGAR DIAGNOSTIC 1 EACH STRIP IN SCH ×4 (05:14→23:15)
[2021-10-19 06:31] LABS: BASOPHILS % (AUTO) 0.4 % (0.0-2.0); EOSINOPHILS % (AUTO) 0.5 % (0.0-6.0); HEMATOCRIT 34 % (39-51); HEMOGLOBIN 10.8 g/dL (13.5-17.5); LYMPHOCYTES # (AUTO) 1.9 K/uL (0.8-4.8); LYMPHOCYTES % (AUTO) 16.2 % (20.0-44.0); MEAN CORPUSCULAR HGB CONC 32 g/dl (31.0-36.0); MEAN CORPUSCULAR VOLUME 101 fL (80-96); MONOCYTES # (AUTO) 1.6 K/uL (0.1-1.30); MONOCYTES % (AUTO) 13.2 % (2.0-12.0); NEUTROPHILS # (AUTO) 8.4 K/uL (1.8-8.9); NEUTROPHILS % (AUTO) 69.7 % (43.0-81.0); PLATELET COUNT (AUTO) 155 K/uL (150-450); RED BLOOD CELL COUNT(AUTO) 3.36 MIL/uL (4.5-6.0)
--- NOTE | 2021-10-19 07:02 | NUR ---
DEPLOYMENT SPECIALIST CLOSING NOTES PATIENT STILL LAYING AWAKE IN BED. A/O X0 OBTUNDED EYES OPEN. PATIENT WITH REGULAR AND UNLABORED BREATHING ON MECH VENT. TOLERATING SETTINGS WELL. NO SIGNS AND SYMPTOMS OF DISTRESS NOTED AT THIS TIME. NO COMPLAINS OF PAIN OR DISCOMFORT AT THIS TIME. PATIENT ON TELE MONITOR READING ST @ 106 BPM IV ACCESS RIJ SL. IV ACCESS PATENT AND INTACT. SAFETY PRECAUTIONS ENFORCED WITH BED LOCKED AND AT LOWEST POSITION. CALL LIGHT WITHIN REACH AT ALL TIMES. WILL ENDORSE CONTINUITY OF CARE TO DAY SHIFT NURSE.
--- NOTE | 2021-10-19 07:15 | NUR ---
MS RN OPENING NOTES PATIENT LYING IN BED,HEAD OF BED ELEVATED. OBTUNDED, OPENS EYES. NO ACUTE DISTRESS NOTED. BREATHING UNLABORED. ON VENTILATOR FUNCTIONING WELL, ON ORDERED SETTING. IV ACCESS PATENT AND INTACT, NO REDNESS, NO SWELLING, NO BLEEDING NOTED. ON G TUBE FEEDING RUNNING ON ORDERED SETTING. SAFETY MEASURES IN PLACE. CALL LIGHT WITHIN REACH. WILL CONTINUE TO MONITOR ACCORDINGLY
[2021-10-19 07:34] LABS: CALCIUM, SERUM 9.8 mg/dL (8.5-10.1); MAGNESIUM 2.3 mg/dL (1.8-2.4); POTASSIUM 4.9 mmol/L (3.5-5.1)
[2021-10-19] MEDS: PROSOURCE / PROSTAT (PYXIS) 30 ML UDC GT SCH (08:41)
[2021-10-19] MEDS: ARGININE/GLUTAMINE/CALCIUM BMB 1 EACH POWD.PACK GT SCH ×2 (08:41→16:41)
[2021-10-19] MEDS: LEVETIRACETAM SOL (5 ML) 100 MG/ML UDC GT SCH ×2 (08:41→20:45)
[2021-10-19] MEDS: ZINC SULFATE 220 MG CAPSULE GT SCH (08:42)
[2021-10-19] MEDS: MULTIVITAMINS,THERAGRAN 1 UDTAB TABLET GT SCH (08:42)
[2021-10-19] MEDS: VALPROIC ACID 250 MG/5 ML UDC GT SCH ×3 (08:42→17:14)
[2021-10-19] MEDS: PANTOPRAZOLE 40 MG/PACK PACK GT SCH (08:42)
[2021-10-19] MEDS: FERROUS SULFATE UDC 300 MG/5 ML UDC GT SCH (08:42)
[2021-10-19] MEDS: CHLORHEXIDINE GLUCONATE 15 ML UDC MM SCH ×2 (08:42→20:46)
[2021-10-19] MEDS: DOCUSATE SODIUM 100 MG CAPSULE PO SCH (08:43)
[2021-10-19] MEDS: LACOSAMIDE 50 MG TABLET PO SCH ×2 (08:43→20:45)
[2021-10-19] MEDS: METOPROLOL TARTRATE 25 MG TABLET GT SCH (08:45)
[2021-10-19] MEDS: AMLODIPINE BESYLATE 5 MG TABLET GT SCH (08:46)
[2021-10-19] MEDS: THERAHONEY GEL 1.5 OZ TUBE TP SCH (08:47)
[2021-10-19] MEDS: INSULIN REGULAR, HUMAN 100 UNIT/ML 3 ML VIAL SQ PRN (12:05)
[2021-10-19] MEDS: GLUCERNA 1.2 1,000 ML BOTTLE NG PRN (16:46)
--- NOTE | 2021-10-19 17:00 | NUR ---
OFFICE MACHINE REPAIR SHOP SUPERVISOR NOTES TEMPERATURE 98.8, BLOOD GLUCOSE 95
[2021-10-19] MEDS: ASCORBIC ACID 500 MG TABLET GT SCH (17:14)
[2021-10-19] MEDS: METOPROLOL TARTRATE 50 MG TABLET GT SCH (17:14)
[2021-10-19] MEDS ORDERED: IV NS 0.9% 1,000 ML IV ONE (18:00)
--- NOTE | 2021-10-19 18:55 | NUR ---
MS RN CLOSING NOTES PATIENT LYING IN BED,HEAD OF BED ELEVATED. OBTUNDED, OPENS EYES. NO ACUTE DISTRESS NOTED. BREATHING UNLABORED. ON VENTILATOR FUNCTIONING WELL, ON ORDERED SETTING. IV ACCESS PATENT AND INTACT, NO REDNESS, NO SWELLING, NO BLEEDING NOTED. ON G TUBE FEEDING RUNNING ON ORDERED SETTING.NEEDS ATTENDED AND ANTICIPATED. SAFETY MEASURES IN PLACE. CALL LIGHT WITHIN REACH. WILL ENDORSE TO NIGHT NURSE FOR CONTINUITY OF CARE
--- NOTE | 2021-10-19 19:25 | NUR ---
RN NOTE PT RESTING IN BED, EYES OPEN, OBTUNDED. ON VENT AND SAUL SETTINGS WELL. TACHYPNEIC, RR 26, NONLABORED. IV ACCESS: R-IJ INTACT/PATENT/FLUSHES WELL. GT INTACT/PATENT, CONT FEEDING OF GLUCERNA @75ML/HR AND SAUL WELL, NO RESIDUALS NOTED. CONDOM CATH IN PLACE. ON TELE MONITOR, READING ST 109. PT IN NO ACUTE DISTRESS. SAFETY MEASURES IN PLACE. WILL CONT TO MONITOR.
[2021-10-19 20:00] VITALS: BP 102/54
--- NOTE | 2021-10-19 20:37 | NUR ---
RN NOTE HR TO 120'S, RR 28, PERSPIRING. GIVEN PRN MORPHINE ORDERED
[2021-10-19] MEDS: SENNOSIDES 8.6 MG TABLET GT SCH (21:22)
--- NOTE | 2021-10-19 21:43 | NUR ---
RN NOTE RESTING COMFORTABLY, EYES CLOSED, HR 86, RR 21
[2021-10-20] VITALS: BP 102/63
[2021-10-20] MEDS: IV NS 0.9% 250 ML IV PRN (00:16)
[2021-10-20] MEDS: LORAZEPAM INJ 2 MG/ML VIAL IV PRN (01:35)
[2021-10-20] MEDS: BACLOFEN (10 MG) 10 MG TABLET GT SCH ×3 (05:00→21:49)
[2021-10-20] MEDS: ACETAMINOPHEN 650 MG/20.3 ML UDC PEG PRN ×2 (05:00→21:49)
[2021-10-20] MEDS: BLOOD SUGAR DIAGNOSTIC 1 EACH STRIP IN SCH ×3 (06:13→17:20)
[2021-10-20 06:24] LABS: BASOPHILS % (AUTO) 0.3 % (0.0-2.0); EOSINOPHILS % (AUTO) 0.7 % (0.0-6.0); HEMATOCRIT 30 % (39-51); HEMOGLOBIN 9.8 g/dL (13.5-17.5); LYMPHOCYTES # (AUTO) 1.6 K/uL (0.8-4.8); LYMPHOCYTES % (AUTO) 19.7 % (20.0-44.0); MEAN CORPUSCULAR HGB CONC 33 g/dl (31.0-36.0); MEAN CORPUSCULAR VOLUME 100 fL (80-96); MONOCYTES # (AUTO) 1.6 K/uL (0.1-1.30); MONOCYTES % (AUTO) 20.1 % (2.0-12.0); NEUTROPHILS # (AUTO) 4.8 K/uL (1.8-8.9); NEUTROPHILS % (AUTO) 59.2 % (43.0-81.0); PLATELET COUNT (AUTO) 127 K/uL (150-450); RED BLOOD CELL COUNT(AUTO) 2.98 MIL/uL (4.5-6.0); WHITE BLOOD COUNT (AUTO) 8.2 K/uL (4.3-11.0)
[2021-10-20 06:30] LABS: CALCIUM, SERUM 9.1 mg/dL (8.5-10.1); CREATININE 1.2 mg/dL (0.6-1.3); MAGNESIUM 2.4 mg/dL (1.8-2.4); POTASSIUM 3.6 mmol/L (3.5-5.1)
[2021-10-20] MEDS: MORPHINE SULFATE INJ 2 MG/ML DISP.SYRIN IV PRN ×2 (06:36→19:06)
--- NOTE | 2021-10-20 06:36 | NUR ---
RN NOTE NOTED HR TO 150'S, PROFUSE PERSPIRATION, FACIAL TWITCHING. GIVEN PRN MORPHINE ORDERED. WILL CONT TO MONITOR.
--- NOTE | 2021-10-20 07:10 | NUR ---
RN NOTE PT RESTING COMFORTABLY, EYES CLOSED, HR 90'S, RR18. SAUL VENT SETTINGS WELL. R-IJ IV ACCESS INTACT/PATENT, WITH NS TKO. CONT GTF GLUCERNA @75ML/HR, SAUL WELL, NO RESIDUALS NOTED. CONDOM CATH OUTPUT 800CC. TELE MONITOR READING SR 91. PT IN NO ACUTE DISTRESS. SAFETY MEASURES MAINTAINED. ENDORSED TO NEXT SHIFT NURSE.
--- NOTE | 2021-10-20 07:30 | NUR ---
BANK COMPLIANCE OFFICER OPENING NOTES RECEIVED PT RESTING ON BED, EYES OPEN, OBTUNDED. ON VENT AND TOLERATING SETTINGS WELL. NO SOB NOTED. NOT IN DISTRESS. WITH IV ACCRESS AT RIGHT IJ CENTRAL LINE SALINE LOCKED, PATENT AND INTACT. ON GLUCERNA FEEDING @75ML/HR TOLERATING WELL, NO RESIDUALS NOTED VIA G-TUBE. WITH CONDOM CATHETER IN PLACED DRAING CLEAR YELLOW URINE. ON TELE MONITOR CURRENTLY READING SINUS RHYTHM AT 95BPM. SAFETY MEASURES IN PLACE. WILL CONTINUE TO MONITOR.
[2021-10-20] MEDS: CHLORHEXIDINE GLUCONATE 15 ML UDC MM SCH ×2 (08:19→21:49)
[2021-10-20] MEDS: LEVETIRACETAM SOL (5 ML) 100 MG/ML UDC GT SCH ×2 (08:20→21:49)
[2021-10-20] MEDS: MULTIVITAMINS,THERAGRAN 1 UDTAB TABLET GT SCH (08:20)
[2021-10-20] MEDS: DOCUSATE SODIUM 100 MG CAPSULE PO SCH (08:21)
[2021-10-20] MEDS: PANTOPRAZOLE 40 MG/PACK PACK GT SCH (08:21)
[2021-10-20] MEDS: ZINC SULFATE 220 MG CAPSULE GT SCH (08:21)
[2021-10-20] MEDS: VALPROIC ACID 250 MG/5 ML UDC GT SCH ×3 (08:21→16:49)
[2021-10-20] MEDS: LACOSAMIDE 50 MG TABLET PO SCH ×2 (08:21→21:49)
[2021-10-20] MEDS: FERROUS SULFATE UDC 300 MG/5 ML UDC GT SCH (08:21)
[2021-10-20] MEDS: THERAHONEY GEL 1.5 OZ TUBE TP SCH (08:21)
[2021-10-20] MEDS: ARGININE/GLUTAMINE/CALCIUM BMB 1 EACH POWD.PACK GT SCH ×2 (08:22→16:49)
[2021-10-20] MEDS: PROSOURCE / PROSTAT (PYXIS) 30 ML UDC GT SCH (08:22)
[2021-10-20 08:23] VITALS: BP 101/57
[2021-10-20] MEDS: METOPROLOL TARTRATE 50 MG TABLET GT SCH ×3 (10:46→18:58)
[2021-10-20 12:29] VITALS: BP 109/66
[2021-10-20] MEDS: GLUCERNA 1.2 1,000 ML BOTTLE NG PRN (15:41)
[2021-10-20 16:34] VITALS: BP 107/58
[2021-10-20] MEDS: ASCORBIC ACID 500 MG TABLET GT SCH (17:02)
--- NOTE | 2021-10-20 19:06 | NUR ---
RN NOTE HR TO 140'S, RR 28 AND PERSPIRING. MORPHINE GIVEN ORDERED.
--- NOTE | 2021-10-20 19:26 | NUR ---
SUPPLY CHAIN DESIGN MANAGER CLOSING NOTES PT RESTING ON BED, EYES OPEN, OBTUNDED. ON VENT AND TOLERATING SETTINGS WELL. NO SOB NOTED. NOT IN DISTRESS. WITH IV ACCESS AT RIGHT IJ CENTRAL LINE SALINE LOCKED, PATENT AND INTACT. ON GLUCERNA FEEDING @75ML/HR TOLERATING WELL, NO RESIDUALS NOTED VIA G-TUBE. WITH CONDOM CATHETER IN PLACED DRAINING CLEAR YELLOW URINE. ON TELE MONITOR CURRENTLY READING SINUS TACHYCARDIA AT 135BPM. SAFETY MEASURES IN PLACE. WILL ENDORSE TO NEXT SHIFT FOR JENNY.
--- NOTE | 2021-10-20 19:45 | NUR ---
RN OPENING NOTE PATIENT AWAKE IN BED. OBTUNDED W/ EYE OPENING. NO S/S OF DISTRESS, BREATHING BY VENT W/O DIFFICULTY. RIJ CENTRAL LINE SL INTACT AND PATENT. TELE MONITOR REVEALS ST 105. UPON COMING ONTO SHIFT PATIENT WAS ST 150, AND DAY SHIFT NURSE ADMINISTERED MORPHINE. GLUCERNA 75ML/HR. SAFETY MEASURES IN PLACE: BED AT LOWEST POSITION, LOCKED, RAILS UP X3, CALL BELLA WITHIN REACH. WILL CONTINUE TO MONITOR PATIENT.
[2021-10-20 20:21] VITALS: BP 97/54
[2021-10-20] MEDS: SENNOSIDES 8.6 MG TABLET GT SCH (21:49)
--- NOTE | 2021-10-20 23:06 | NUR ---
RN NOTE MARKETING INTELLIGENCE MANAGER'S INITIAL VS REVEALED A TEMP OF 101.8. PATIENT WAS GIVEN TYLENOL (VIA G-TUBE). BLANKETS AND HOSPITAL GOWN ROLLED BACK. ONE HOUR LATER (@2300) TEMP WAS RECHECKED AND IT WAS REVEALED TO BE 98.5F. IT IS NOTED IN THE PATIENT'S EMR THAT HE IS PRONE TO DEVELOPING ELEVATED TEMPS/FEVERS. PATIENT REMAINS STABLE; WILL CONTINUE TO MONITOR PATIENT.
[2021-10-20 23:53] VITALS: BP 117/71
[2021-10-21] MEDS: BLOOD SUGAR DIAGNOSTIC 1 EACH STRIP IN SCH ×4 (00:12→18:19)
[2021-10-21] MEDS: INSULIN REGULAR, HUMAN 100 UNIT/ML 3 ML VIAL SQ PRN ×2 (00:13→06:06)
[2021-10-21] MEDS: IV NS 0.9% 250 ML IV PRN (00:54)
[2021-10-21] MEDS: MORPHINE SULFATE INJ 2 MG/ML DISP.SYRIN IV PRN ×3 (03:48→14:17)
[2021-10-21 03:54] VITALS: BP 129/70
[2021-10-21] MEDS: BACLOFEN (10 MG) 10 MG TABLET GT SCH ×3 (05:09→20:36)
--- NOTE | 2021-10-21 07:01 | NUR ---
RN CLOSING NOTE PATIENT ASLEEP IN BED. OBTUNDED W/ EYE OPENING. NO S/S OF DISTRESS; BREATHING ON VENT W/O DIFFICULTY. RIJ CENTRAL LINE SL INTACT AND PATENT. TELE MONITOR REVEALS SR 88. GLUCERNA @75ML/HR. SAFETY MEASURES IN PLACE: BED AT LOWEST POSITION, LOCKED, RAILS UP X2, CALL BELLA WITHIN REACH. WILL ENDORSE TO NEXT SHIFT FOR JENNY.
[2021-10-21 07:27] LABS: BASOPHILS % (AUTO) 0.2 % (0.0-2.0); EOSINOPHILS % (AUTO) 0.6 % (0.0-6.0); HEMATOCRIT 31 % (39-51); HEMOGLOBIN 10.1 g/dL (13.5-17.5); LYMPHOCYTES # (AUTO) 1.7 K/uL (0.8-4.8); LYMPHOCYTES % (AUTO) 17.1 % (20.0-44.0); MEAN CORPUSCULAR HGB CONC 33 g/dl (31.0-36.0); MEAN CORPUSCULAR VOLUME 101 fL (80-96); MONOCYTES # (AUTO) 1.7 K/uL (0.1-1.30); MONOCYTES % (AUTO) 16.8 % (2.0-12.0); NEUTROPHILS # (AUTO) 6.6 K/uL (1.8-8.9); NEUTROPHILS % (AUTO) 65.3 % (43.0-81.0); PLATELET COUNT (AUTO) 114 K/uL (150-450); RED BLOOD CELL COUNT(AUTO) 3.08 MIL/uL (4.5-6.0); WHITE BLOOD COUNT (AUTO) 10.1 K/uL (4.3-11.0)
--- NOTE | 2021-10-21 07:46 | NUR ---
RAILCAR SWITCHER NOTES PT IN BED, RESTING, EYES CLOSED, NO SIGN OF PAIN OR DISTRESS, HR AT 88 AT THIS TIME, SEEN BY DR. MANN, NO NEW ORDER GIVEN, KEPT PT COMFORTABLE AND VOCATIONAL CHILDCARE TEACHER BED.
[2021-10-21 08:00] VITALS: BP 136/62
[2021-10-21 08:49] LABS: CALCIUM, SERUM 9.6 mg/dL (8.5-10.1); CREATININE 1.1 mg/dL (0.6-1.3); MAGNESIUM 2.3 mg/dL (1.8-2.4); PHOSPHORUS 3.6 mg/dL (2.5-4.9); POTASSIUM 3.9 mmol/L (3.5-5.1)
[2021-10-21] MEDS: CHLORHEXIDINE GLUCONATE 15 ML UDC MM SCH ×2 (09:05→20:36)
[2021-10-21] MEDS: LEVETIRACETAM SOL (5 ML) 100 MG/ML UDC GT SCH ×2 (09:05→20:36)
[2021-10-21] MEDS: FERROUS SULFATE UDC 300 MG/5 ML UDC GT SCH (09:05)
[2021-10-21] MEDS: LACOSAMIDE 50 MG TABLET PO SCH ×2 (09:06→20:36)
[2021-10-21] MEDS: MULTIVITAMINS,THERAGRAN 1 UDTAB TABLET GT SCH (09:06)
[2021-10-21] MEDS: METOPROLOL TARTRATE 50 MG TABLET GT SCH ×2 (09:06→16:28)
[2021-10-21] MEDS: DOCUSATE SODIUM 100 MG CAPSULE PO SCH (09:06)
[2021-10-21] MEDS: VALPROIC ACID 250 MG/5 ML UDC GT SCH ×3 (09:06→16:55)
[2021-10-21] MEDS: ZINC SULFATE 220 MG CAPSULE GT SCH (09:06)
[2021-10-21] MEDS: PANTOPRAZOLE 40 MG/PACK PACK GT SCH (09:06)
[2021-10-21] MEDS: THERAHONEY GEL 1.5 OZ TUBE TP SCH (09:07)
[2021-10-21] MEDS: ARGININE/GLUTAMINE/CALCIUM BMB 1 EACH POWD.PACK GT SCH ×2 (09:08→16:55)
[2021-10-21] MEDS: PROSOURCE / PROSTAT (PYXIS) 30 ML UDC GT SCH (09:08)
[2021-10-21 12:00] VITALS: BP 131/82
[2021-10-21] MEDS: ACETAMINOPHEN 650 MG/20.3 ML UDC PEG PRN ×2 (12:35→20:36)
[2021-10-21] MEDS: GLUCERNA 1.2 1,000 ML BOTTLE NG PRN (14:02)
[2021-10-21 16:00] VITALS: BP 98/56
[2021-10-21] MEDS: ASCORBIC ACID 500 MG TABLET GT SCH (18:19)
--- NOTE | 2021-10-21 18:41 | NUR ---
FORMAL WEAR RENTAL CLERK NOTES PT IN BED, ASLEEP, EASY TO AROUSE, NOT IN DISTRESS, HR OF 88 AT THIS TIME, AFEBRILE AT THIS TIME, PM CARE PROVIDED, PM MEDS GIVEN ORDERED, REPOSITIONED FOR COMFORT, KEPT CLEAN, DRY AND COMFORTABLE, CONDOM CATH IN PLACE.
[2021-10-21 20:00] VITALS: BP_SYST 101; BP_SYST 118; BP_DIAS 56; BP_DIAS 79
--- NOTE | 2021-10-21 20:04 | NUR ---
RECEIVED PATIENT IN BED, TRACH DEPENDENT, NO RESPIRATORY DISTRESS, OBTUNDED, OPENS EYES, NOT IN APPARENT PAIN, TACHYCARDIA, HR 104, PEG TUBE INFUSING, GLUCERNA @ 75 ML/HR, KEPT HOB ELEVATED, ASPIRATION PRECAUTIONS, SEIZURE PRECAUTIONS, WILL CONTINUE TO MONITOR.
[2021-10-21] MEDS: SENNOSIDES 8.6 MG TABLET GT SCH (21:11)
[2021-10-22] VITALS (7 sets, daily range): BP systolic 103–184; BP diastolic 61–123
[2021-10-22] MEDS: BLOOD SUGAR DIAGNOSTIC 1 EACH STRIP IN SCH ×4 (00:05→17:24)
[2021-10-22] MEDS: INSULIN REGULAR, HUMAN 100 UNIT/ML 3 ML VIAL SQ PRN ×2 (00:06→05:25)
[2021-10-22] MEDS: LORAZEPAM INJ 2 MG/ML VIAL IV PRN (00:07)
[2021-10-22] MEDS: IV D5/0.45 NACL 1,000 ML IV SCH ×2 (00:10→05:26)
[2021-10-22] MEDS: BACLOFEN (10 MG) 10 MG TABLET GT SCH ×3 (05:09→21:29)
[2021-10-22] MEDS: ACETAMINOPHEN 650 MG/20.3 ML UDC PEG PRN ×4 (05:09→22:04)
--- NOTE | 2021-10-22 06:42 | NUR ---
OBTUNDED, VENT DEPENDENT, NO RESPIRATORY DISTRESS, TACHYCARDIA WITH HEART RATE UP TO 150s. TELE READING ST, LOW GRADE FEVER, GIVEN TYLENOL X2, COOLING MEASURES, COOL BED BATH, FEVER STILL PERSIST. NEW ORDER OF D5 1/2 NS AT 150 ML/HR, BG AT 0500 93 MG/DL, NO INSULIN COVERAGE, GLUCERNA AT 75 ML/HR TOLERATING WELL, NO RESIDUAL, CONTINUE IVF, MONITOR BP, MONITOR SODIUM AND POTASSIUM, COOLING MEASURES.
[2021-10-22] MEDS: GLUCERNA 1.2 1,000 ML BOTTLE NG PRN (06:48)
[2021-10-22 07:30] LABS: CALCIUM, SERUM 9.8 mg/dL (8.5-10.1); CREATININE 1.2 mg/dL (0.6-1.3); MAGNESIUM 2.4 mg/dL (1.8-2.4); PHOSPHORUS 2.6 mg/dL (2.5-4.9); POTASSIUM 4.7 mmol/L (3.5-5.1)
[2021-10-22 07:34] LABS: BASOPHILS # (AUTO) 0.1 K/uL (0.0-0.2); BASOPHILS % (AUTO) 1.1 % (0.0-2.0); EOSINOPHILS % (AUTO) 0.3 % (0.0-6.0); HEMATOCRIT 34 % (39-51); HEMOGLOBIN 10.9 g/dL (13.5-17.5); LYMPHOCYTES # (AUTO) 1.9 K/uL (0.8-4.8); MEAN CORPUSCULAR HGB CONC 32 g/dl (31.0-36.0); MEAN CORPUSCULAR VOLUME 100 fL (80-96); MONOCYTES # (AUTO) 1.9 K/uL (0.1-1.30); MONOCYTES % (AUTO) 15.1 % (2.0-12.0); NEUTROPHILS # (AUTO) 8.6 K/uL (1.8-8.9); NEUTROPHILS % (AUTO) 68.5 % (43.0-81.0); PLATELET COUNT (AUTO) 115 K/uL (150-450); RED BLOOD CELL COUNT(AUTO) 3.44 MIL/uL (4.5-6.0); WHITE BLOOD COUNT (AUTO) 12.6 K/uL (4.3-11.0)
--- NOTE | 2021-10-22 07:53 | NUR ---
MANAGER SOURCING OPENING NOTE Patient is obtunded, opens eyes. On mechanical ventilator tolerating current settings well: Shiley XLT 8, AC 16, TV 450, FiO2 40%, PEEP 5. IV access on RIJ central line, intact and patent. G-tube in place running Glucerna at 75 ml/hr. Condom catheter in place draining to a yellow colored urine. On tele monitoring showing sinus tachycardia. Safety precautions in place: bed in low, locked position; siderails up x 2; call light within reach. Will continue to monitor.
[2021-10-22 08:39] LABS: LYMPHOCYTES % (MANUAL) 20 % (16-48); MONOCYTES % (MANUAL) 9 % (0-11.0); NEUTROPHILS % (MANUAL) 71 (42-76)
--- NOTE | 2021-10-22 08:46 | NUR ---
RN NOTE Patient temp is 102.7, PRN Tylenol 650 mg and ice packs given. Marsha Sosa NP aware.
[2021-10-22] MEDS: METOPROLOL TARTRATE 50 MG TABLET GT SCH ×3 (08:50→17:24)
[2021-10-22] MEDS: VALPROIC ACID 250 MG/5 ML UDC GT SCH ×3 (08:50→17:23)
[2021-10-22] MEDS: ZINC SULFATE 220 MG CAPSULE GT SCH (08:51)
[2021-10-22] MEDS: MULTIVITAMINS,THERAGRAN 1 UDTAB TABLET GT SCH (08:51)
[2021-10-22] MEDS: LEVETIRACETAM SOL (5 ML) 100 MG/ML UDC GT SCH ×2 (08:51→21:29)
[2021-10-22] MEDS: DOCUSATE SODIUM 100 MG CAPSULE PO SCH (08:51)
[2021-10-22] MEDS: PROSOURCE / PROSTAT (PYXIS) 30 ML UDC GT SCH (08:51)
[2021-10-22] MEDS: LACOSAMIDE 50 MG TABLET PO SCH ×2 (08:51→21:29)
[2021-10-22] MEDS: CHLORHEXIDINE GLUCONATE 15 ML UDC MM SCH ×2 (08:51→21:29)
[2021-10-22] MEDS: FERROUS SULFATE UDC 300 MG/5 ML UDC GT SCH (08:51)
[2021-10-22] MEDS: ARGININE/GLUTAMINE/CALCIUM BMB 1 EACH POWD.PACK GT SCH ×2 (08:51→17:23)
[2021-10-22] MEDS: PANTOPRAZOLE 40 MG/PACK PACK GT SCH (08:51)
[2021-10-22] MEDS: THERAHONEY GEL 1.5 OZ TUBE TP SCH (08:52)
[2021-10-22] MEDS ORDERED: IV D5/0.45 NACL 1,000 ML IV ONE (11:30)
[2021-10-22] MEDS: ASCORBIC ACID 500 MG TABLET GT SCH (17:24)
--- NOTE | 2021-10-22 17:25 | NUR ---
RN NOTE Patient temp is 99.9. PRN Tylenol given with continuous cooling measures. Will continue to monitor patient.
[2021-10-22] MEDS: IV D5/0.45 NACL 1,000 ML IV PRN (17:45)
--- NOTE | 2021-10-22 18:54 | NUR ---
WREATH MACHINE OPERATOR CLOSING NOTE Patient is obtunded, opens eyes. On mechanical ventilator tolerating current settings well: Shiley XLT 8, AC 16, TV 450, FiO2 40%, PEEP 5. IV access on RIJ central line, infusing D5 1/2 NS at 150 ml/hr. G-tube in place running Glucerna at 75 ml/hr. Condom catheter in place draining to a yellow colored urine with an output of 500 cc. On tele monitoring showing SR, HR 95. Due meds given. Patient kept clean and dry. Wound care done, as ordered. Safety precautions maintained: bed in low, locked position; siderails up x 2; call light within reach. Will endorse to security shift manager nurse for JENNY.
--- NOTE | 2021-10-22 19:50 | NUR ---
TELE/RN OPENING NOTE RECEIVED PATIENT RESTING IN BED. OBTUNDED AT BASELINE. NO S/SX OF PAIN NOTED. CONTINUES ON MECHANICAL VENT WITH PATIENT TOLERATING SETTINGS WELL. IV ACCESS TO RIGHT IJ INTACT AND PATENT. CONTINUES ON IVF D51/2 NS @ 150ML/HR. CONTINUES ON GLUCERNA @ 75ML/HR X 20HRS. NO RESIDUAL NOTED AT THIS TIME. CONDOM CATHETER IN PLACE DRAINING CLEAR, YELLOW URINE TO GRAVITY. TELE MONITOR IN PLACE WITH CURRENT READING SR HR 91. CALL LIGHT WITHIN REACH. ASPIRATION, FALL AND SAFETY PRECAUTIONS MAINTAINED. WILL CONTINUE TO MONITOR.
[2021-10-22] MEDS: SENNOSIDES 8.6 MG TABLET GT SCH (21:29)
[2021-10-23] VITALS: BP 153/90
[2021-10-23] MEDS: ACETAMINOPHEN 650 MG/20.3 ML UDC PEG PRN (00:06)
[2021-10-23] MEDS: BLOOD SUGAR DIAGNOSTIC 1 EACH STRIP IN SCH ×4 (00:06→17:55)
[2021-10-23] MEDS: METOPROLOL TARTRATE 50 MG TABLET GT SCH ×4 (00:07→17:02)
[2021-10-23] MEDS: IV D5/0.45 NACL 1,000 ML IV PRN (02:58)
[2021-10-23 04:00] VITALS: BP 134/82
[2021-10-23] MEDS: BACLOFEN (10 MG) 10 MG TABLET GT SCH ×3 (06:02→21:22)
[2021-10-23] MEDS: GLUCERNA 1.2 1,000 ML BOTTLE NG PRN (06:14)
--- NOTE | 2021-10-23 06:50 | NUR ---
TELE/RN CLOSING NOTE PATIENT CURRENTLY RESTING IN BED. OBTUNDED AT BASELINE. NO S/SX OF PAIN NOTED. CONTINUES ON MECHANICAL VENT WITH PATIENT TOLERATING SETTINGS WELL. IV ACCESS TO RIGHT IJ INTACT AND PATENT. CONTINUES ON IVF D51/2 NS @ 150ML/HR. CONTINUES ON GLUCERNA @ 75ML/HR X 20HRS. NO RESIDUAL NOTED AT THIS TIME. CONDOM CATHETER IN PLACE DRAINING CLEAR, YELLOW URINE TO GRAVITY. TELE MONITOR IN PLACE WITH CURRENT READING SR HR 91. CALL LIGHT WITHIN REACH. ASPIRATION, FALL AND SAFETY PRECAUTIONS MAINTAINED. WILL ENDORSE PLAN OF CARE TO ONCOMING SHIFT.
[2021-10-23 07:20] LABS: BASOPHILS % (AUTO) 0.2 % (0.0-2.0); EOSINOPHILS % (AUTO) 0.2 % (0.0-6.0); HEMATOCRIT 34 % (39-51); HEMOGLOBIN 10.6 g/dL (13.5-17.5); LYMPHOCYTES % (AUTO) 15.1 % (20.0-44.0); MEAN CORPUSCULAR HGB CONC 32 g/dl (31.0-36.0); MEAN CORPUSCULAR VOLUME 101 fL (80-96); MONOCYTES # (AUTO) 1.6 K/uL (0.1-1.30); MONOCYTES % (AUTO) 12.7 % (2.0-12.0); NEUTROPHILS # (AUTO) 9.3 K/uL (1.8-8.9); NEUTROPHILS % (AUTO) 71.8 % (43.0-81.0); PLATELET COUNT (AUTO) 105 K/uL (150-450); RED BLOOD CELL COUNT(AUTO) 3.32 MIL/uL (4.5-6.0); WHITE BLOOD COUNT (AUTO) 12.9 K/uL (4.3-11.0)
--- NOTE | 2021-10-23 07:25 | NUR ---
WELLNESS EDUCATOR OPENING NOTES RECEIVED PT IN BED WITH EYES OPEN, OBTUNDED, NO S/S OF DISTRESS NOTED. HOB ELEVATED. PT WITH TRACH SHILEY #[id number] [facility]ED [facility], TOLERATING CURRENT SETTINGS WELL. NO SOB NOTED. ON TELE MONITOR WITH CURRENT READING OF SINUS RHYTHM AND HR 89 BPM. IV ACCESS ON RIGHT IJ PATENT AND INTACT WITH IVF RUNNING ORDERED. ON GLUCERNA FEEDING @75ML/HR IN PROGRESS VIA G-TUBE AND TOLERATING WELL. CONDOM CATHETER IN PLACE DRAINING CLEAR YELLOW URINE. SAFETY MEASURES IN PLACE: BED IN LOWEST LOCKED POSITION, SR UP X3 AND CALL LIGHT W/IN REACH. WILL CONTINUE TO MONITOR PT ACCORDINGLY.
[2021-10-23] MEDS: IV D5W 1,000 ML IV PRN ×2 (07:55→18:02)
[2021-10-23 08:00] VITALS: BP 116/76
[2021-10-23 08:02] LABS: CALCIUM, SERUM 9.7 mg/dL (8.5-10.1); CREATININE 1.1 mg/dL (0.6-1.3); PHOSPHORUS 2.6 mg/dL (2.5-4.9); POTASSIUM 3.9 mmol/L (3.5-5.1)
[2021-10-23] MEDS: FERROUS SULFATE UDC 300 MG/5 ML UDC GT SCH (08:26)
[2021-10-23] MEDS: LACOSAMIDE 50 MG TABLET PO SCH ×2 (08:26→21:23)
[2021-10-23] MEDS: LEVETIRACETAM SOL (5 ML) 100 MG/ML UDC GT SCH ×2 (08:26→21:22)
[2021-10-23] MEDS: VALPROIC ACID 250 MG/5 ML UDC GT SCH ×3 (08:26→16:21)
[2021-10-23] MEDS: MULTIVITAMINS,THERAGRAN 1 UDTAB TABLET GT SCH (08:27)
[2021-10-23] MEDS: ZINC SULFATE 220 MG CAPSULE GT SCH (08:27)
[2021-10-23] MEDS: CHLORHEXIDINE GLUCONATE 15 ML UDC MM SCH ×2 (08:27→21:22)
[2021-10-23] MEDS: PANTOPRAZOLE 40 MG/PACK PACK GT SCH (08:27)
[2021-10-23] MEDS: DOCUSATE SODIUM LIQ 100 MG/10 ML UDC GT SCH (08:29)
[2021-10-23] MEDS: THERAHONEY GEL 1.5 OZ TUBE TP SCH (08:31)
[2021-10-23] MEDS: PROSOURCE / PROSTAT (PYXIS) 30 ML UDC GT SCH (08:31)
[2021-10-23] MEDS: ARGININE/GLUTAMINE/CALCIUM BMB 1 EACH POWD.PACK GT SCH ×2 (08:31→16:20)
[2021-10-23 12:00] VITALS: BP 154/78
[2021-10-23] MEDS: INSULIN REGULAR, HUMAN 100 UNIT/ML 3 ML VIAL SQ PRN ×2 (12:13→17:56)
--- NOTE | 2021-10-23 15:53 | NUR ---
RN NOTES RECEIVED CALL FROM PT'S MOTHER BART THAT SE COULDN'T COME THIS AFTERNOON AND INSTEAD WILL COME TO VISIT TOMORROW B/W 1-2 PM. LAM SEALS AND IVÁN DANIELS MADE AWARE.
[2021-10-23 16:00] VITALS: BP 132/74
[2021-10-23] MEDS: ASCORBIC ACID 500 MG TABLET GT SCH (17:01)
--- NOTE | 2021-10-23 18:37 | NUR ---
RN NOTES PT NOTED WITH HIGH PROCALCITONIN 36.94. IVÁN DANIELS MADE AWARE WITH ORDER TO COLLECT SPUTUM FOR CULTURE AND FUNGAL RESPIRATORY CULTURE. ALSO CALLED ID WITH NO ORDERS MADE AT THIS TIME.
--- NOTE | 2021-10-23 18:49 | NUR ---
CIVIL ENGINEERING DESIGN DRAFTSPERSON CLOSING NOTES PT IN BED LYING AT MODERATE HIG H BACKREST POSITION. OBTUNDED AND AWAKE ON AND OFF DURING THE DAY. PT WITH TRACH SHILEY #[id number] CONNECTED TO MECH VENT AT PRESCRIBED SETTINGS, TOLERATING SETTINGS WELL WITH NO SOB NOTED. ON TELE MONITOR WITH CURRENT READING OF NSR AND HR 84 BPM. IV ACCESS ON RIGHT IJ PATENT AND INTACT WITH IVF OF D5W @ 100ML/HR INFUSING WELL. ON GLUCERNA FEEDING @75ML/HR IN PROGRESS VIA G-TUBE, TOLERATING WELL. CONDOM CATHETER IN PLACE DRAINING CLEAR YELLOW URINE TO BEDSIDE URINARY BAG. PT TURNED AND REPOSITIONED Q 2HRS AND PRN. KEPT CLEAN , DRY AND COMFORTABLE AT ALL TIMES. SAFETY MEASURES KEPT IN PLACE: BED IN LOWEST LOCKED POSITION, SR UP X3 AND CALL LIGHT W/IN REACH. WILL ENDORSE JENNY TO OFFICE SUPPORT CLERK NURSE.
--- NOTE | 2021-10-23 19:55 | NUR ---
MS RN OPENING NOTE RECEIVED PATIENT IN BED, OBTUNDED, EYE OPENING. NO S/S OF APPARENT DISTRESS, BREATHING UNLABORED-- VENT DEPENDENT. TELE MONITOR READING ST 101. CONDOM CATH IN PLACE DRAINING CLEAR, YELLOW URINE. PATIENT NOTED TO BE CONTRACTED IN BUE. G-TUBE RUNNING GLUCERNA 1.2 @75MLS/HR. R. IJ RUNNING D5 1/2 NS@125MLS/HR. SPUTUM COLLECTED BY GIANA PAPPAS AT THIS TIME. SAFETY IN PLACE. WILL CONTINUE WITH PLAN OF CARE FOR PATIENT.
[2021-10-23 20:00] VITALS: BP 136/35
[2021-10-23] MEDS: SENNOSIDES 8.6 MG TABLET GT SCH (21:23)
[2021-10-23] MEDS: HYDROCODONE/APAP 5/325MG TABLET GT PRN (22:32)
--- NOTE | 2021-10-23 22:32 | NUR ---
MS RN NOTE GIVEN NORCO-5 ST THIS TIME. EXHIBITING PAIN VIA FLACC, VS CHANGES. WILL REASSESS.
--- NOTE | 2021-10-23 22:57 | NUR ---
LAWN MAINTENANCE WORKER NOTE PAIN RELIEVED PER CLINICAL ASSESSMENT.
[2021-10-24] VITALS: BP 91/51
[2021-10-24] MEDS: BLOOD SUGAR DIAGNOSTIC 1 EACH STRIP IN SCH ×4 (00:05→17:57)
[2021-10-24] MEDS: INSULIN REGULAR, HUMAN 100 UNIT/ML 3 ML VIAL SQ PRN ×2 (00:06→06:14)
--- NOTE | 2021-10-24 00:11 | NUR ---
AWNING HANGER NOTE- NON-ADMIN 0000 DOSE OF LOPRESSOR NON-ADMIN. BP 91/51. WILL CONTINUE TO MONITOR.
[2021-10-24 04:00] VITALS: BP 125/73
[2021-10-24] MEDS: BACLOFEN (10 MG) 10 MG TABLET GT SCH ×3 (05:14→21:14)
[2021-10-24] MEDS: METOPROLOL TARTRATE 50 MG TABLET GT SCH ×4 (05:16→17:24)
[2021-10-24] MEDS: HYDROCODONE/APAP 5/325MG TABLET GT PRN ×2 (05:21→12:48)
[2021-10-24] MEDS: GLUCERNA 1.2 1,000 ML BOTTLE NG PRN (06:05)
[2021-10-24] MEDS: IV D5W 1,000 ML IV PRN ×2 (06:15→17:21)
--- NOTE | 2021-10-24 07:07 | NUR ---
JACQUARD LOOM HEDDLES TIER CLOSING NOTE PATIENT IN BED, NO SIGNIFICANT CHANGE. IV D5W RUNNING @100CC/HR AT THIS TIME. G-TUBE RUNNING GLUCERNA 1.2 @75MLS/HR-- TOLERATING. ALL NEEDS ATTENDED. SCHEDULED MEDS ADMINISTERED. [facility], PAIN MANAGED WITH MEDICATIONS. TELE MONITOR READING SR 94 BPM THIS AM. SAFETY IN PLACE. NO SEIZURE THROUGHOUT SHIFT. WILL ENDORSE TO MORNING SHIFT RN FOR CONTINUITY OF CARE.
--- NOTE | 2021-10-24 07:30 | NUR ---
BUSINESS EXCELLENCE LEADER NOTES PT IN BED, RESTING, NO SIGN OF PAIN OR DISTRESS, HR 80'S AT THIS TIME, GT FEEDING INFUSING WELL, IV FLUIDS INFUSING WELL, SEEN BY DR. MATTHEWS, NO NEW ORDER, KEPT PT COMFORTABLE.
[2021-10-24] MEDS: FERROUS SULFATE UDC 300 MG/5 ML UDC GT SCH (08:33)
[2021-10-24] MEDS: DOCUSATE SODIUM LIQ 100 MG/10 ML UDC GT SCH (08:33)
[2021-10-24] MEDS: PROSOURCE / PROSTAT (PYXIS) 30 ML UDC GT SCH (08:33)
[2021-10-24] MEDS: CHLORHEXIDINE GLUCONATE 15 ML UDC MM SCH ×2 (08:33→21:14)
[2021-10-24] MEDS: LEVETIRACETAM SOL (5 ML) 100 MG/ML UDC GT SCH ×2 (08:34→21:13)
[2021-10-24] MEDS: PANTOPRAZOLE 40 MG/PACK PACK GT SCH (08:34)
[2021-10-24] MEDS: VALPROIC ACID 250 MG/5 ML UDC GT SCH ×3 (08:34→17:24)
[2021-10-24] MEDS: ZINC SULFATE 220 MG CAPSULE GT SCH (08:34)
[2021-10-24] MEDS: MULTIVITAMINS,THERAGRAN 1 UDTAB TABLET GT SCH (08:34)
[2021-10-24] MEDS: LACOSAMIDE 50 MG TABLET PO SCH ×2 (08:35→21:14)
[2021-10-24] MEDS: ARGININE/GLUTAMINE/CALCIUM BMB 1 EACH POWD.PACK GT SCH ×2 (08:45→17:24)
[2021-10-24 08:46] VITALS: BP 140/36
[2021-10-24] MEDS: ACETAMINOPHEN 650 MG/20.3 ML UDC PEG PRN (11:24)
[2021-10-24] MEDS: THERAHONEY GEL 1.5 OZ TUBE TP SCH (11:26)
[2021-10-24 12:00] VITALS: BP 116/87
--- NOTE | 2021-10-24 12:54 | NUR ---
HEALTH NURSE NOTES PT SEEN BY DR. DARBY MD INFORMED OF LATEST LAB RESULTS AND VITALS, NO NEW ORDER.
[2021-10-24 16:00] VITALS: BP 96/54
[2021-10-24] MEDS: ASCORBIC ACID 500 MG TABLET GT SCH (17:24)
--- NOTE | 2021-10-24 18:16 | NUR ---
SKIDDER LEVER OPERATOR NOTES PT IN BED, RESTING, NO SIGN OF PAIN OR DISTRESS, HR AT THIS TIME IS 90, AFEBRILE, IV FLUIDS INFUSING WELL, PM CARE PROVIDED, REPOSITIONED FOR COMFORT, GT FEEDING INFUSING WELL, CONDOM CATH DRAINING WELL WITH CLEAR YELLOW URINE, KEPT WARM AND COMFORTABLE.
--- NOTE | 2021-10-24 18:16 | NUR ---
COST ANALYST NOTES RECEIVED PRELIMINARY BLOOD CULTURE RESULT- GRAM NEGATIVE RODS AT GRAM STAIN, DR. PASTOR INFORMED, NO NEW ORDER.
--- NOTE | 2021-10-24 19:40 | NUR ---
MS BEJARANO OPENING NOTE PATIENT WENT DOWN DURING CHANGE OF SHIFT REPORT. REMINDED OF HIS 2199 MEDICATION. PATIENT ACKNOWLEDGED. Addendum: 10/24/21 at 1941 by GÉNESIS HAMILTON RN DISREGARD
--- NOTE | 2021-10-24 19:42 | NUR ---
CERTIFIED ALCOHOL DRUG COUNSELOR OPENING NOTE RECEIVED PATIENT IN BED, EYES OPEN. NO S/S OF APPARENT DISTRESS -- VENT DEPENDENT. NOT EXHIBITING PAIN VIA FLACC. TELE MONITOR READING ST 111 BPM AT THIS TIME. IV D5 W RUNNING AT 100ML/HR. G-TUBE RUNNING GLUCERNA @75 MLS/HR. CONDOM CATH IN PLACE, DRAINING CLEAR YELLOW URINE. SAFETY IN PLACE. WILL CONTINUE WITH PLAN OF CARE FOR PATIENT.
[2021-10-24 20:00] VITALS: BP 157/74
--- NOTE | 2021-10-24 21:12 | NUR ---
BP RE-CHECK 139/98; HR-106. WILL ADMIN LOPRESSOR.
[2021-10-24] MEDS: SENNOSIDES 8.6 MG TABLET GT SCH (21:14)
--- NOTE | 2021-10-24 21:44 | NUR ---
RELIGION INSTRUCTOR NOTE REID FROM LAB CALLED, REPORTED GRAM (+) COCCI FROM BLOOD CX EARLIER NOT GRAM (-) STILL PRELIMINARY. APPRAISER TIMBER MYRON RAZO MADE AWARE.
[2021-10-25] VITALS: BP 158/77
[2021-10-25] MEDS: INSULIN REGULAR, HUMAN 100 UNIT/ML 3 ML VIAL SQ PRN ×2 (00:08→06:07)
[2021-10-25] MEDS: BLOOD SUGAR DIAGNOSTIC 1 EACH STRIP IN SCH ×4 (00:08→17:50)
[2021-10-25] MEDS: METOPROLOL TARTRATE 50 MG TABLET GT SCH ×4 (00:08→17:38)
[2021-10-25] MEDS: HYDROCODONE/APAP 5/325MG TABLET GT PRN (01:03)
[2021-10-25] MEDS: IV D5W 1,000 ML IV PRN ×2 (03:26→15:17)
[2021-10-25] MEDS: BACLOFEN (10 MG) 10 MG TABLET GT SCH ×3 (05:23→21:53)
[2021-10-25 05:30] VITALS: BP 120/57
[2021-10-25 06:44] LABS: BASOPHILS # (AUTO) 0.2 K/uL (0.0-0.2); BASOPHILS % (AUTO) 1.2 % (0.0-2.0); EOSINOPHILS % (AUTO) 1.1 % (0.0-6.0); HEMATOCRIT 35 % (39-51); HEMOGLOBIN 11.4 g/dL (13.5-17.5); LYMPHOCYTES % (AUTO) 18.1 % (20.0-44.0); MEAN CORPUSCULAR HGB CONC 33 g/dl (31.0-36.0); MEAN CORPUSCULAR VOLUME 97 fL (80-96); MONOCYTES # (AUTO) 2.2 K/uL (0.1-1.30); MONOCYTES % (AUTO) 13.3 % (2.0-12.0); NEUTROPHILS # (AUTO) 10.9 K/uL (1.8-8.9); NEUTROPHILS % (AUTO) 66.3 % (43.0-81.0); PLATELET COUNT (AUTO) 127 K/uL (150-450); RED BLOOD CELL COUNT(AUTO) 3.58 MIL/uL (4.5-6.0); WHITE BLOOD COUNT (AUTO) 16.5 K/uL (4.3-11.0)
--- NOTE | 2021-10-25 06:56 | NUR ---
JOURNALISTS AND OTHER WRITERS CLOSING NOTE PATIENT IN BED WITH EYES CLOSED, EASY TO AROUSE. NO S/S OF APPARENT DISTRESS, VENT DEPENDENT. NOT EXHIBITING PAIN VIA FLACC AT THIS TIME. TELE MONITOR READING SR IN THE 70'S. IJ TRIPLE LUMEN RUNNING D5W, GTUBE RUNNING GLUCERNA @75MLS/HR. TOLERATING WELL. CONDOM CATH DRAINING CLEAR, YELLOW URINE WITH OUTPUT OF 1000 ML. ALL NEEDS ATTENDED. WOUND CARE RENDERED. NO SIGNIFICANT CHANGE, NO SEIZURE THROUGHOUT SHIFT. NO FEVER THROUGHOUT SHIFT. WILL ENDORSE TO MORNING SHIFT RN FOR CONTINUITY OF CARE.
[2021-10-25 06:59] LABS: ALBUMIN 2.5 g/dL (3.4-5.0); BILIRUBIN,TOTAL 0.2 mg/dL (0.2-1.0); CREATININE 1.2 mg/dL (0.6-1.3); MAGNESIUM 2.4 mg/dL (1.8-2.4); PHOSPHORUS 4.4 mg/dL (2.5-4.9); POTASSIUM 4.3 mmol/L (3.5-5.1); TOTAL PROTEIN, SERUM 8.8 g/dL (6.4-8.2)
--- NOTE | 2021-10-25 07:30 | NUR ---
OPHTHALMIC MEDICAL TECHNOLOGIST NOTES PT IN BED, EYES OPEN, NO SIGN OF PAIN OR DISTRESS, IV FLUIDS INFUSING WELL, AFEBRILE AT THIS TIME, CONDOM CATH IN PLACE, DRAINING WELL WITH CLEAR, YELLOW URINE, KEPT WARM AND COMFORTABLE, GT FEEDING INFUSING WELL, WILL CONTINUE TO MONITOR.
[2021-10-25 08:00] VITALS: BP 159/81
[2021-10-25 08:04] LABS: LYMPHOCYTES % (MANUAL) 23 % (16-48); MONOCYTES % (MANUAL) 16 % (0-11.0); NEUTROPHILS % (MANUAL) 61 (42-76)
[2021-10-25] MEDS ORDERED: VANCOMYCIN HCL 0.75 GM in IV D5W 250 ML IV ONE (09:30)
[2021-10-25] MEDS: CHLORHEXIDINE GLUCONATE 15 ML UDC MM SCH ×2 (10:22→21:53)
[2021-10-25] MEDS: LEVETIRACETAM SOL (5 ML) 100 MG/ML UDC GT SCH ×2 (10:22→21:52)
[2021-10-25] MEDS: VALPROIC ACID 250 MG/5 ML UDC GT SCH ×3 (10:23→17:30)
[2021-10-25] MEDS: FERROUS SULFATE UDC 300 MG/5 ML UDC GT SCH (10:23)
[2021-10-25] MEDS: PANTOPRAZOLE 40 MG/PACK PACK GT SCH (10:23)
[2021-10-25] MEDS: ARGININE/GLUTAMINE/CALCIUM BMB 1 EACH POWD.PACK GT SCH ×2 (10:23→17:29)
[2021-10-25] MEDS: DOCUSATE SODIUM LIQ 100 MG/10 ML UDC GT SCH (10:23)
[2021-10-25] MEDS: ZINC SULFATE 220 MG CAPSULE GT SCH (10:23)
[2021-10-25] MEDS: MULTIVITAMINS,THERAGRAN 1 UDTAB TABLET GT SCH (10:23)
[2021-10-25] MEDS: PROSOURCE / PROSTAT (PYXIS) 30 ML UDC GT SCH (10:23)
[2021-10-25] MEDS: LACOSAMIDE 50 MG TABLET PO SCH ×2 (10:24→21:53)
[2021-10-25] MEDS: THERAHONEY GEL 1.5 OZ TUBE TP SCH (10:25)
[2021-10-25] MEDS: VANCOMYCIN HCL 0.75 GM in IV D5W 250 ML IV SCH ×2 (15:07→23:11)
[2021-10-25 16:00] VITALS: BP 142/54
[2021-10-25] MEDS: ASCORBIC ACID 500 MG TABLET GT SCH (17:30)
--- NOTE | 2021-10-25 18:38 | NUR ---
PRIVATE BANKER NOTES PT IN BED, NO SIGN OF PAIN OR DISTRESS, ON VENT/TRACH, GT FEEDING INFUSING WELL, TOLERATES WELL, IV FLUIDS INFUSING WELL, REMAINS AFEBRILE DURING THE SHIFT, PM CARE PROVIDED, FAMILY AND FRIENDS VISITED TODAY, KEPT CLEAN AND DRY, PM MEDS GIVEN.
[2021-10-25 20:00] VITALS: BP 139/98
--- NOTE | 2021-10-25 20:10 | NUR ---
FINISHING DEPARTMENT SUPERVISOR OPENING NOTES: RECEIVED PATIENT AWAKE, NO COMPLAIN OF PAIN AND DISCOMFORT NO FACIAL GRIMACING WAS OBSERVED, PATIENT IS OBTUNDED OPENS EYES, ON MECH VENT SATURATING WELL, ON TELE MONITORING SR-94, ON CONDOM CATHETER AT 30CC PER HOUR INFUSING WELL, WITH IV LINE AT RT IJ WITH D5W@100ML PER HOUR INFUSING WELL, PATIENT KEPT CLEAN AND DRY ALL NEEDS MET WILL CONTINUE TO MONITOR.
[2021-10-25] MEDS: SENNOSIDES 8.6 MG TABLET GT SCH (21:53)
[2021-10-25] MEDS: ACETAMINOPHEN 650 MG/20.3 ML UDC PEG PRN (22:00)
[2021-10-26] VITALS: BP 172/96
[2021-10-26] MEDS: METOPROLOL TARTRATE 50 MG TABLET GT SCH ×4 (00:22→17:28)
[2021-10-26] MEDS: INSULIN REGULAR, HUMAN 100 UNIT/ML 3 ML VIAL SQ PRN (00:24)
[2021-10-26] MEDS: BLOOD SUGAR DIAGNOSTIC 1 EACH STRIP IN SCH ×4 (00:25→17:29)
[2021-10-26 04:00] VITALS: BP 121/57
[2021-10-26] MEDS: GLUCERNA 1.2 1,000 ML BOTTLE NG PRN (04:22)
[2021-10-26] MEDS: IV D5W 1,000 ML IV PRN ×2 (04:23→17:29)
[2021-10-26] MEDS: ACETAMINOPHEN 650 MG/20.3 ML UDC PEG PRN ×2 (04:53→22:00)
[2021-10-26] MEDS: BACLOFEN (10 MG) 10 MG TABLET GT SCH ×3 (04:53→21:39)
--- NOTE | 2021-10-26 06:59 | NUR ---
RN NOTES: BS-98 NO INSULIN GIVEN PER SLIDING SCALE
[2021-10-26] MEDS: VANCOMYCIN HCL 0.75 GM in IV D5W 250 ML IV SCH ×2 (07:00→15:00)
--- NOTE | 2021-10-26 07:02 | NUR ---
RN CLOSING NOTES; PATIENT SLEEP IN BED COMFORTABLY, BED IN LOW POSITION, CALL LIGHTS WITHIN REACH, NO COMPLAIN OF PAIN AND DISCOMFORT AT THIS TIME ON TLE MONITORING ST-118, ON CONDOM CATHETER 650CC URINE OUTPUT WITH IV LINE AT RIGHT IJ WITH ONGOING D5W AT 100ML/HR INFUSING WELL, PATIENT ON NPO/NGT AT GLUCERNA 1.2@75ML /HR PATIENT ON MONITORING FOR FEVER DUE MEDICATION GIVEN, PATIENT CLEAN AND DRY DRESSING CHANGE, KEPT CLEAN AND DRY WILL CONTINUE TO MONITOR
[2021-10-26 07:25] LABS: BASOPHILS # (AUTO) 0.2 K/uL (0.0-0.2); BASOPHILS % (AUTO) 1.3 % (0.0-2.0); EOSINOPHILS % (AUTO) 0.1 % (0.0-6.0); HEMATOCRIT 37 % (39-51); HEMOGLOBIN 12.2 g/dL (13.5-17.5); LYMPHOCYTES # (AUTO) 1.7 K/uL (0.8-4.8); MEAN CORPUSCULAR HGB CONC 33 g/dl (31.0-36.0); MEAN CORPUSCULAR VOLUME 96 fL (80-96); MONOCYTES % (AUTO) 11.7 % (2.0-12.0); NEUTROPHILS # (AUTO) 13.4 K/uL (1.8-8.9); NEUTROPHILS % (AUTO) 76.9 % (43.0-81.0); PLATELET COUNT (AUTO) 139 K/uL (150-450); RED BLOOD CELL COUNT(AUTO) 3.84 MIL/uL (4.5-6.0); WHITE BLOOD COUNT (AUTO) 17.4 K/uL (4.3-11.0)
--- NOTE | 2021-10-26 07:30 | NUR ---
INSTALLATION ENGINEER OPENING NOTES RECEIVED PT RESTING ON BED, EYES OPEN, OBTUNDED. ON VENT AND TOLERATING SETTINGS WELL. NO SOB NOTED. NOT IN DISTRESS. WITH IV ACCESS AT RIGHT IJ CENTRAL LINE SALINE LOCKED, PATENT AND INTACT. ON GLUCERNA FEEDING @75ML/HR TOLERATING WELL, NO RESIDUALS NOTED VIA G-TUBE. ON TELE MONITOR CURRENTLY READING SINUS RHYTHM AT 95BPM. SAFETY MEASURES IN PLACE. WILL CONTINUE TO MONITOR.
[2021-10-26 07:38] LABS: ALBUMIN 2.7 g/dL (3.4-5.0); BILIRUBIN,TOTAL 0.2 mg/dL (0.2-1.0); CALCIUM, SERUM 10.5 mg/dL (8.5-10.1); CREATININE 1.6 mg/dL (0.6-1.3); MAGNESIUM 2.7 mg/dL (1.8-2.4); PHOSPHORUS 4.8 mg/dL (2.5-4.9); POTASSIUM 4.3 mmol/L (3.5-5.1); TOTAL PROTEIN, SERUM 9.4 g/dL (6.4-8.2)
[2021-10-26 08:00] VITALS: BP 141/76
[2021-10-26] MEDS: ARGININE/GLUTAMINE/CALCIUM BMB 1 EACH POWD.PACK GT SCH ×2 (09:17→17:27)
[2021-10-26] MEDS: DOCUSATE SODIUM LIQ 100 MG/10 ML UDC GT SCH (09:17)
[2021-10-26] MEDS: PROSOURCE / PROSTAT (PYXIS) 30 ML UDC GT SCH (09:17)
[2021-10-26] MEDS: ZINC SULFATE 220 MG CAPSULE GT SCH (09:18)
[2021-10-26] MEDS: LACOSAMIDE 50 MG TABLET PO SCH ×2 (09:18→21:38)
[2021-10-26] MEDS: MULTIVITAMINS,THERAGRAN 1 UDTAB TABLET GT SCH (09:18)
[2021-10-26] MEDS: VALPROIC ACID 250 MG/5 ML UDC GT SCH ×3 (09:18→17:26)
[2021-10-26] MEDS: FERROUS SULFATE UDC 300 MG/5 ML UDC GT SCH (09:18)
[2021-10-26] MEDS: CHLORHEXIDINE GLUCONATE 15 ML UDC MM SCH ×2 (09:18→21:37)
[2021-10-26] MEDS: PANTOPRAZOLE 40 MG/PACK PACK GT SCH (09:18)
[2021-10-26] MEDS: LEVETIRACETAM SOL (5 ML) 100 MG/ML UDC GT SCH ×2 (09:18→21:38)
[2021-10-26] MEDS: THERAHONEY GEL 1.5 OZ TUBE TP SCH (09:19)
[2021-10-26 11:15] LABS: LYMPHOCYTES % (MANUAL) 16 % (16-48); MONOCYTES % (MANUAL) 2 % (0-11.0); NEUTROPHILS % (MANUAL) 72 (42-76); REACTIVE LYMPHOCYTES 10 % (0-0)
[2021-10-26 16:00] VITALS: BP 108/56
--- NOTE | 2021-10-26 17:00 | NUR ---
RN NOTES HELD METOPROLOL FOR PATIENT'S BP IS LOW AT 108/56.
[2021-10-26] MEDS: ASCORBIC ACID 500 MG TABLET GT SCH (17:26)
[2021-10-26] MEDS ORDERED: COLISTIMETHATE SODIUM IV ONE (18:00)
[2021-10-26] MEDS ORDERED: NS 0.9% IV ONE (18:00)
--- NOTE | 2021-10-26 19:30 | NUR ---
PACKAGING OPERATOR CLOSING NOTES PT RESTING ON BED, EYES OPEN, OBTUNDED. ON VENT AND TOLERATING SETTINGS WELL. NO SOB NOTED. NOT IN DISTRESS. WITH IV ACCESS AT RIGHT IJ CENTRAL LINE SALINE LOCKED, PATENT AND INTACT. ON GLUCERNA FEEDING @75ML/HR TOLERATING WELL, NO RESIDUALS NOTED VIA G-TUBE. . ON TELE MONITOR CURRENTLY READING SINUS RHYTHM AT 86BPM. DUE MEDS GIVEN. SAFETY MEASURES IN PLACE. WILL ENDORSE TO NEXT SHIFT FOR JENNY.
--- NOTE | 2021-10-26 19:37 | NUR ---
SURVEILLANCE AGENT OPENING NOTES: RECEIVED PATIENT SLEEP IN BOD COMFORTABLY, BED IN LOW POSITION CALL LIGHTS WITHIN REACH, PATIENT IS OBTUNDED OPEN EYES, ON TELE MONITORING SR-90 ON COMDOM CATHETER, 30CC URINE OUTPUT, NPO ON G TUBE FEEDING NEPRO 1.2@75 ML PER HOUR INFUSING WELL, WITH IV LINE AT RT. IJ WITH ONGOING D5@100ML/HR, PATIENT ON MECH VENT SATURATING WELL, NO SOB WAS OBSERVED, KEPT CLEAN AND DRY ALL NEEDS MET, WILL CONTINUE TO MONITOR.
[2021-10-26 20:00] VITALS: BP 107/54
[2021-10-26] MEDS ORDERED: MEROPENEM 1 G in IV NS 0.9% 100 ML IV ONE (21:00)
[2021-10-26] MEDS: SENNOSIDES 8.6 MG TABLET GT SCH (21:38)
[2021-10-27] VITALS: BP 165/95
[2021-10-27] MEDS: METOPROLOL TARTRATE 50 MG TABLET GT SCH ×4 (00:45→17:44)
--- NOTE | 2021-10-27 00:54 | NUR ---
RN NOTES: BS-122- NO INSULIN GIVEN PER SLIDING SCALE
[2021-10-27 04:00] VITALS: BP 123/75
[2021-10-27] MEDS: BACLOFEN (10 MG) 10 MG TABLET GT SCH ×3 (05:20→20:11)
[2021-10-27] MEDS: MEROPENEM 1 G in IV NS 0.9% 100 ML IV SCH ×3 (05:20→21:02)
[2021-10-27] MEDS: IV D5W 1,000 ML IV PRN ×2 (05:33→19:19)
[2021-10-27] MEDS: GLUCERNA 1.2 1,000 ML BOTTLE NG PRN (05:57)
[2021-10-27] MEDS: BLOOD SUGAR DIAGNOSTIC 1 EACH STRIP IN SCH ×4 (06:00→18:08)
[2021-10-27 06:53] LABS: ALBUMIN 2.5 g/dL (3.4-5.0); BILIRUBIN,TOTAL 0.2 mg/dL (0.2-1.0); CALCIUM, SERUM 9.7 mg/dL (8.5-10.1); CREATININE 1.3 mg/dL (0.6-1.3); MAGNESIUM 2.6 mg/dL (1.8-2.4); PHOSPHORUS 3.9 mg/dL (2.5-4.9); POTASSIUM 3.7 mmol/L (3.5-5.1); TOTAL PROTEIN, SERUM 8.6 g/dL (6.4-8.2)
--- NOTE | 2021-10-27 07:03 | NUR ---
NEON GLASS BENDER CLOSING NOTES: PATIENT SLEEP IN BED BED IN LOW POSITION, CALL LIGHTS WITHIN REACH, NO COMPLAIN OF PAIN AND DISCOMFORT AT THIS TIME, ON GTUBE FEEDING OF NEPRO 1.2@75ML PER HOUR INFUSING WELL, ON JACOBSON CATHETER AT 700 URINE OUTPUT, WITH IV LINE AT RIGHT IJ WITH D5W @100ML PER HOUR INFUSING WELL,ON TELE MONITORING SR87, ON MECH VENT SATURATING WELL, PATIENT KEPT CLEAN AND DRY ALL NEEDS MET ENDORSE TO INCOMING SHIFT
[2021-10-27 07:12] LABS: BASOPHILS # (AUTO) 0.1 K/uL (0.0-0.2); BASOPHILS % (AUTO) 0.6 % (0.0-2.0); EOSINOPHILS % (AUTO) 0.4 % (0.0-6.0); HEMATOCRIT 35 % (39-51); HEMOGLOBIN 11.2 g/dL (13.5-17.5); LYMPHOCYTES # (AUTO) 3.8 K/uL (0.8-4.8); LYMPHOCYTES % (AUTO) 26.7 % (20.0-44.0); MEAN CORPUSCULAR HGB CONC 32 g/dl (31.0-36.0); MEAN CORPUSCULAR VOLUME 96 fL (80-96); MONOCYTES # (AUTO) 2.1 K/uL (0.1-1.30); MONOCYTES % (AUTO) 14.5 % (2.0-12.0); NEUTROPHILS # (AUTO) 8.2 K/uL (1.8-8.9); NEUTROPHILS % (AUTO) 57.8 % (43.0-81.0); PLATELET COUNT (AUTO) 173 K/uL (150-450); RED BLOOD CELL COUNT(AUTO) 3.62 MIL/uL (4.5-6.0); WHITE BLOOD COUNT (AUTO) 14.2 K/uL (4.3-11.0)
--- NOTE | 2021-10-27 07:25 | NUR ---
IMMIGRATION CONSULTANT OPENING NOTES RECEIVED PT AWAKE IN BED IN NO ACUTE SIGN SOF DISTRESS. HOB ELEVATED. OBTUNDED AND EYES OPEN. PT WITH TRACH SHILEY #[id number] [facility] AT PRESCRIBED SETTINGS, TOLERATING SETTINGS WELL WITH NO SOB NOTED. ON TELE MONITOR WITH CURRENT READING OF SINUS TACH, HR 108 BPM. IV ACCESS ON RIGHT IJ INTACT WITH IVF OF D5W @ 100ML/HR RUNNING ORDERED. ON GTF OF GLUCERNA @75ML/HR IN PROGRESS, TOLERATING WELL. CONDOM CATHETER IN PLACE DRAINING CLEAR YELLOW URINE. SAFETY MEASURES IN PLACE: BED IN LOWEST LOCKED POSITION, SR UP X3 AND CALL LIGHT W/IN REACH. WILL CONTINUE TO MONITOR PT.
[2021-10-27] MEDS: DOCUSATE SODIUM LIQ 100 MG/10 ML UDC GT SCH (08:12)
[2021-10-27] MEDS: VALPROIC ACID 250 MG/5 ML UDC GT SCH ×3 (08:12→16:36)
[2021-10-27] MEDS: LEVETIRACETAM SOL (5 ML) 100 MG/ML UDC GT SCH ×2 (08:12→20:11)
[2021-10-27] MEDS: LACOSAMIDE 50 MG TABLET PO SCH ×2 (08:12→20:12)
[2021-10-27] MEDS: FERROUS SULFATE UDC 300 MG/5 ML UDC GT SCH (08:12)
[2021-10-27] MEDS: PANTOPRAZOLE 40 MG/PACK PACK GT SCH (08:12)
[2021-10-27] MEDS: CHLORHEXIDINE GLUCONATE 15 ML UDC MM SCH ×2 (08:12→20:12)
[2021-10-27] MEDS: ZINC SULFATE 220 MG CAPSULE GT SCH (08:13)
[2021-10-27] MEDS: MULTIVITAMINS,THERAGRAN 1 UDTAB TABLET GT SCH (08:13)
[2021-10-27] MEDS: PROSOURCE / PROSTAT (PYXIS) 30 ML UDC GT SCH (08:16)
[2021-10-27] MEDS: ARGININE/GLUTAMINE/CALCIUM BMB 1 EACH POWD.PACK GT SCH ×2 (08:16→16:36)
[2021-10-27 08:23] VITALS: BP 138/84
[2021-10-27] MEDS: COLISTIMETHATE SODIUM IV SCH ×2 (09:10→20:12)
[2021-10-27] MEDS: NS 0.9% IV SCH ×2 (09:10→20:12)
[2021-10-27] MEDS: THERAHONEY GEL 1.5 OZ TUBE TP SCH (09:11)
[2021-10-27] MEDS: INSULIN REGULAR, HUMAN 100 UNIT/ML 3 ML VIAL SQ PRN ×2 (11:59→18:08)
[2021-10-27 12:22] VITALS: BP 93/49
[2021-10-27] MEDS: ACETAMINOPHEN 650 MG/20.3 ML UDC PEG PRN (15:11)
--- NOTE | 2021-10-27 16:10 | NUR ---
RN NOTES PT NOTED WITH ELEVATED TEMP OF 101.3F TODAY, COOLING MEASURES DONE AND TYLENOL 650MG GIVEN VIA GT. LATEST TEMP WAS 99.8F. WILL CONTINUE TO MONITOR.
[2021-10-27 16:13] VITALS: BP 131/86
[2021-10-27] MEDS: ASCORBIC ACID 500 MG TABLET GT SCH (17:41)
--- NOTE | 2021-10-27 18:47 | NUR ---
CRIMINAL INTELLIGENCE SPECIALIST CLOSING NOTES PT IN BED OBTUNDED, EYES OPEN TO DEEP TACTILE AND PAIN STIMULI. HOB ELEVATED. PT WITH TRACH SHILEY #[id number] [facility] AT PRESCRIBED SETTINGS, TOLERATING SETTINGS WELL WITH NO SOB NOTED. ON TELE MONITOR WITH CURRENT READING OF ST HR 127 BPM. IV ACCESS ON RIGHT IJ PATENT AND INTACT WITH IVF OF D5W @ 100ML/HR INFUSING WELL. G-TUBE IN PLACE WITH FEEDING OF GLUCERNA @75ML/HR IN PROGRESS, TOLERATING WELL. ASPIRATION PRECAUTIONS MAINTAINED CONDOM CATHETER IN PLACE DRAINING CLEAR YELLOW URINE TO BEDSIDE URINARY BAG. PT TURNED AND REPOSITIONED Q 2HRS AND PRN. KEPT CLEAN , DRY AND COMFORTABLE AT ALL TIMES. SAFETY MEASURES KEPT IN PLACE: BED IN LOWEST LOCKED POSITION, SR UP X3 AND CALL LIGHT W/IN REACH. WILL ENDORSE JENNY TO PLATE FITTER NURSE.
--- NOTE | 2021-10-27 19:47 | NUR ---
BARREL TESTER OPENING NOTES RECEIVED PT IN BED OBTUNDED, EYES OPEN TO DEEP TACTILE AND PAIN STIMULI. PT WITH TRACH SHILEY #8XLT [facility] PRESCRIBED SETTINGS, TOLERATING SETTINGS WELL. NO SOB OR S/S OF RESPIRATORY DISTRESS NOTED. ON EXTERNAL MANAGER NURSING HOME WITH CURRENT READING OF ST HR 106 BPM. IV ACCESS ON RIGHT IJ PATENT AND INTACT WITH RUNNING D5W @ 100 ML/HR. WITH G-TUBE RUNNING GLUCERNA @75ML/HR. CONDOM CATHETER IN PLACE DRAINING CLEAR YELLOW URINE. SAFETY PRECAUTIONS IN PLACE. BED IN LOWEST LOCKED POSITION, HOB ELEVATED, SIDE RAILS UP X3, AND CALL LIGHT AND TABLE WITHIN REACH. ALL NEEDS MET AT THIS TIME.
[2021-10-27 20:00] VITALS: BP 137/95
[2021-10-27] MEDS: SENNOSIDES 8.6 MG TABLET GT SCH (21:02)
[2021-10-28] VITALS: BP 101/55
[2021-10-28] MEDS: METOPROLOL TARTRATE 50 MG TABLET GT SCH ×5 (00:12→18:02)
[2021-10-28] MEDS: GLUCERNA 1.2 1,000 ML BOTTLE NG PRN ×2 (00:25→16:59)
[2021-10-28] MEDS: BLOOD SUGAR DIAGNOSTIC 1 EACH STRIP IN SCH ×4 (00:25→17:56)
[2021-10-28 04:00] VITALS: BP 91/53
[2021-10-28] MEDS: MEROPENEM 1 G in IV NS 0.9% 100 ML IV SCH ×2 (05:01→13:03)
[2021-10-28] MEDS: BACLOFEN (10 MG) 10 MG TABLET GT SCH ×3 (05:02→21:19)
[2021-10-28 07:14] LABS: BASOPHILS # (AUTO) 0.1 K/uL (0.0-0.2); BASOPHILS % (AUTO) 0.3 % (0.0-2.0); EOSINOPHILS % (AUTO) 0.1 % (0.0-6.0); HEMATOCRIT 29 % (39-51); HEMOGLOBIN 9.4 g/dL (13.5-17.5); LYMPHOCYTES % (AUTO) 10.3 % (20.0-44.0); MEAN CORPUSCULAR HGB CONC 32 g/dl (31.0-36.0); MEAN CORPUSCULAR VOLUME 95 fL (80-96); MONOCYTES # (AUTO) 3.6 K/uL (0.1-1.30); MONOCYTES % (AUTO) 12.4 % (2.0-12.0); NEUTROPHILS # (AUTO) 22.5 K/uL (1.8-8.9); NEUTROPHILS % (AUTO) 76.9 % (43.0-81.0); PLATELET COUNT (AUTO) 150 K/uL (150-450); RED BLOOD CELL COUNT(AUTO) 3.05 MIL/uL (4.5-6.0); WHITE BLOOD COUNT (AUTO) 29.2 K/uL (4.3-11.0)
[2021-10-28 07:35] LABS: ALBUMIN 2.1 g/dL (3.4-5.0); BILIRUBIN,TOTAL 0.3 mg/dL (0.2-1.0); CALCIUM, SERUM 9.4 mg/dL (8.5-10.1); CREATININE 2.4 mg/dL (0.6-1.3); MAGNESIUM 2.4 mg/dL (1.8-2.4); PHOSPHORUS 2.9 mg/dL (2.5-4.9); POTASSIUM 3.5 mmol/L (3.5-5.1); TOTAL PROTEIN, SERUM 7.5 g/dL (6.4-8.2)
--- NOTE | 2021-10-28 07:37 | NUR ---
STOCK UNLOADER CLOSING NOTES PT IN BED OBTUNDED, EYES OPEN TO DEEP TACTILE AND PAIN STIMULI. PT WITH TRACH SHILEY #[id number] CONNECTED TO MECH VENT AT PRESCRIBED SETTINGS, TOLERATING SETTINGS WELL. NO SOB OR S/S OF RESPIRATORY DISTRESS NOTED. ON EXTERNAL STORE ADMINISTRATIVE ASSISTANT WITH CURRENT READING OF ST HR 109 BPM. IV ACCESS ON RIGHT IJ PATENT AND INTACT WITH RUNNING D5W @ 100 ML/HR. WITH G-TUBE RUNNING GLUCERNA @75ML/HR. CONDOM CATHETER IN PLACE DRAINING CLEAR YELLOW URINE, DRAINED 1200 CC. SAFETY PRECAUTIONS IN PLACE AT ALL TIMES. BED IN LOWEST LOCKED POSITION, HOB ELEVATED, SIDE RAILS UP X3, AND CALL LIGHT AND TABLE WITHIN REACH. ALL NEEDS MET AT THIS TIME AND WILL ENDORSE TO ONCOMING NURSE FOR JENNY.
[2021-10-28 08:00] VITALS: BP 92/51
--- NOTE | 2021-10-28 08:30 | NUR ---
dr. braden texted with elevated bun.
[2021-10-28] MEDS: COLISTIMETHATE SODIUM IV SCH ×2 (10:18→21:31)
[2021-10-28] MEDS: NS 0.9% IV SCH ×2 (10:18→21:31)
[2021-10-28] MEDS: PROSOURCE / PROSTAT (PYXIS) 30 ML UDC GT SCH (10:18)
[2021-10-28] MEDS: PANTOPRAZOLE 40 MG/PACK PACK GT SCH (10:47)
[2021-10-28] MEDS: FERROUS SULFATE UDC 300 MG/5 ML UDC GT SCH (10:47)
[2021-10-28] MEDS: LEVETIRACETAM SOL (5 ML) 100 MG/ML UDC GT SCH ×2 (10:47→21:19)
[2021-10-28] MEDS: CHLORHEXIDINE GLUCONATE 15 ML UDC MM SCH ×2 (10:48→21:19)
[2021-10-28] MEDS: DOCUSATE SODIUM LIQ 100 MG/10 ML UDC GT SCH (10:48)
[2021-10-28] MEDS: LACOSAMIDE 50 MG TABLET PO SCH ×2 (10:48→21:19)
[2021-10-28] MEDS: VALPROIC ACID 250 MG/5 ML UDC GT SCH ×3 (10:49→18:01)
[2021-10-28] MEDS: ZINC SULFATE 220 MG CAPSULE GT SCH (10:49)
[2021-10-28] MEDS: MULTIVITAMINS,THERAGRAN 1 UDTAB TABLET GT SCH (10:49)
[2021-10-28] MEDS: ARGININE/GLUTAMINE/CALCIUM BMB 1 EACH POWD.PACK GT SCH ×2 (11:58→17:55)
[2021-10-28] MEDS: THERAHONEY GEL 1.5 OZ TUBE TP SCH (11:58)
[2021-10-28] MEDS: IV D5W 1,000 ML IV PRN (12:29)
[2021-10-28] MEDS ORDERED: DOSE PER PHARMACY (MD SPECIFY MEDICATION) 1 EA IV PRN (15:00)
[2021-10-28 16:00] VITALS: BP 129/71
[2021-10-28] MEDS ORDERED: SULFAMETHOXAZOLE/TRIMETHOPRIM 15 ML in IV D5W 500 ML IV SCH (16:00)
[2021-10-28] MEDS: SULFAMETHOXAZOLE/TRIMETHOPRIM 10 ML in IV D5W 250 ML IV SCH (16:33)
--- NOTE | 2021-10-28 18:00 | NUR ---
received pt. in am,eyes open,obtunded.on vent,needs infreq. suctioning,wd care done.appears comfortable.on tele vs stable hob elevated bp low in am.but on cont. iv infusion and g-tube feeding all day.
[2021-10-28] MEDS: ASCORBIC ACID 500 MG TABLET GT SCH (18:02)
[2021-10-28 20:00] VITALS: BP 138/83
[2021-10-28] MEDS: SENNOSIDES 8.6 MG TABLET GT SCH (21:19)
[2021-10-29] VITALS: BP 93/51
[2021-10-29] MEDS: BLOOD SUGAR DIAGNOSTIC 1 EACH STRIP IN SCH ×4 (00:04→18:05)
[2021-10-29] MEDS: IV NS 0.9% 1,000 ML IV SCH ×4 (00:04→23:05)
[2021-10-29] MEDS: SULFAMETHOXAZOLE/TRIMETHOPRIM 10 ML in IV D5W 250 ML IV SCH ×3 (00:04→15:41)
[2021-10-29 04:00] VITALS: BP 97/57
[2021-10-29] MEDS: BACLOFEN (10 MG) 10 MG TABLET GT SCH ×3 (05:13→21:10)
[2021-10-29] MEDS: METOPROLOL TARTRATE 50 MG TABLET GT SCH ×3 (06:07→18:00)
--- NOTE | 2021-10-29 06:42 | NUR ---
BUSINESS DEVELOPMENT PROFESSIONAL NOTES PT OBTUNDED, NON VERBAL WITH SAME VENT SETTINGS. NOT IN ANY DISTRESS. NO SOB NOTED. NO S/SX OF ANY PAIN OR DISCOMFORT AT THIS TIME. ON TELE ST @ 108 WITH IVF & GTF INFUSING WELL. AM CARE DONE. MONITORED ACCORDINGLY. CALL LIGHT WITHIN REACH. BED IN LOWEST POSITION. SR UP X 3 WITH BED ALARM ON FOR SAFETY. WILL ENDORSE TO NEXT SHIFT.
--- NOTE | 2021-10-29 08:01 | NUR ---
RN OPENING NOTE PATIENT RECEIVED IN BED WITH AIR MATTRESS, NON VERBAL. IN NO ACUTE DISTRESS NOTED. RESPIRATORY EVEN AND UNLABORED ON ,TRACH WITH VENTILATOR. SKIN IS WARM TO TOUCH, KEEP CLEAN/DRY. STARTED RUNNING TUBE FEEDING ROUTINE. KEPT ELEVATED HOB FOR ENSURE AIRWAY AND ASPIRATION PRECAUTION, ALSO LOWEST POSITION OF THE BED, S/R UP X 3, ALL SAFETY PRECAUTION APPLIED. CALL LIGHT WITHIN REACH, WILL CONTINUE TO MONITOR.
[2021-10-29 09:01] LABS: BASOPHILS # (AUTO) 0.6 K/uL (0.0-0.2); BASOPHILS % (AUTO) 2.3 % (0.0-2.0); EOSINOPHILS % (AUTO) 1.9 % (0.0-6.0); HEMATOCRIT 30 % (39-51); LYMPHOCYTES # (AUTO) 3.7 K/uL (0.8-4.8); LYMPHOCYTES % (AUTO) 14.8 % (20.0-44.0); MEAN CORPUSCULAR HGB CONC 33 g/dl (31.0-36.0); MEAN CORPUSCULAR VOLUME 95 fL (80-96); MONOCYTES # (AUTO) 1.2 K/uL (0.1-1.30); MONOCYTES % (AUTO) 4.7 % (2.0-12.0); NEUTROPHILS % (AUTO) 76.3 % (43.0-81.0); PLATELET COUNT (AUTO) 189 K/uL (150-450); RED BLOOD CELL COUNT(AUTO) 3.16 MIL/uL (4.5-6.0); WHITE BLOOD COUNT (AUTO) 24.9 K/uL (4.3-11.0)
[2021-10-29 09:23] LABS: CALCIUM, SERUM 9.3 mg/dL (8.5-10.1); CREATININE 2.3 mg/dL (0.6-1.3); MAGNESIUM 2.2 mg/dL (1.8-2.4); PHOSPHORUS 3.9 mg/dL (2.5-4.9); POTASSIUM 3.8 mmol/L (3.5-5.1)
[2021-10-29] MEDS: MULTIVITAMINS,THERAGRAN 1 UDTAB TABLET GT SCH (09:34)
[2021-10-29] MEDS: PANTOPRAZOLE 40 MG/PACK PACK GT SCH (09:35)
[2021-10-29] MEDS: DOCUSATE SODIUM LIQ 100 MG/10 ML UDC GT SCH (09:35)
[2021-10-29] MEDS: ARGININE/GLUTAMINE/CALCIUM BMB 1 EACH POWD.PACK GT SCH ×2 (09:35→18:09)
[2021-10-29] MEDS: VALPROIC ACID 250 MG/5 ML UDC GT SCH ×3 (09:35→18:01)
[2021-10-29] MEDS: CHLORHEXIDINE GLUCONATE 15 ML UDC MM SCH ×2 (09:35→21:00)
[2021-10-29] MEDS: ZINC SULFATE 220 MG CAPSULE GT SCH (09:35)
[2021-10-29] MEDS: LACOSAMIDE 50 MG TABLET PO SCH ×2 (09:35→21:10)
[2021-10-29] MEDS: PROSOURCE / PROSTAT (PYXIS) 30 ML UDC GT SCH (09:35)
[2021-10-29] MEDS: FERROUS SULFATE UDC 300 MG/5 ML UDC GT SCH (09:36)
[2021-10-29] MEDS: LEVETIRACETAM SOL (5 ML) 100 MG/ML UDC GT SCH ×2 (09:36→21:10)
[2021-10-29] MEDS: THERAHONEY GEL 1.5 OZ TUBE TP SCH (11:07)
[2021-10-29] MEDS: COLISTIMETHATE SODIUM IV SCH ×2 (11:07→21:09)
[2021-10-29] MEDS: NS 0.9% IV SCH ×2 (11:07→21:09)
[2021-10-29] MEDS: ACETAMINOPHEN 650 MG/20.3 ML UDC PEG PRN ×2 (12:15→21:30)
[2021-10-29] MEDS: GLUCERNA 1.2 1,000 ML BOTTLE NG PRN (15:45)
[2021-10-29] MEDS: ASCORBIC ACID 500 MG TABLET GT SCH (18:01)
--- NOTE | 2021-10-29 18:10 | NUR ---
PATIENT NOTED FEVER >104 AND GIVEN TYLENOL, RECHECKED TEMPERATURE IS 98.7.
--- NOTE | 2021-10-29 18:30 | NUR ---
RN CLOSE NOTE PATIENT IN BED, IN NO ACUTE DISTRESS OBSERVED. RESPIRATION EVEN AND UNLABORED ON TRACH WITH VENTILATOR. SKIN IS WARM TO TOUCH KEEP CLEAN//DRY, INTACT IV SITE. CONDOM CATH CONNECTING URINE BAG, 1,550 ML OUTPUT. RUNNING TUBE FEEDING , 50ML RESIDUAL. KEPT ELEVATED HOB FOR ENSURE AIRWAY AND ASPIRATION PRECAUTION. ALSO LOWEST POSITION OF THE BED FOR SAFETY. CALL LIGHT WITHIN REACH, WILL ENDORSE TO COMMERCIAL ACCOUNTANT.
[2021-10-29 20:00] VITALS: BP 88/47
[2021-10-29] MEDS: SENNOSIDES 8.6 MG TABLET GT SCH (21:10)
[2021-10-30] VITALS: BP 88/55
[2021-10-30] MEDS: BLOOD SUGAR DIAGNOSTIC 1 EACH STRIP IN SCH ×4 (00:19→17:55)
[2021-10-30] MEDS: SULFAMETHOXAZOLE/TRIMETHOPRIM 10 ML in IV D5W 250 ML IV SCH ×3 (00:19→15:02)
[2021-10-30 04:00] VITALS: BP 102/57
[2021-10-30] MEDS: BACLOFEN (10 MG) 10 MG TABLET GT SCH ×3 (05:03→21:29)
[2021-10-30] MEDS: IV NS 0.9% 1,000 ML IV SCH ×2 (05:40→15:02)
[2021-10-30] MEDS: METOPROLOL TARTRATE 50 MG TABLET GT SCH ×4 (05:54→17:55)
[2021-10-30 06:27] LABS: CALCIUM, SERUM 9.2 mg/dL (8.5-10.1); CREATININE 3.4 mg/dL (0.6-1.3); MAGNESIUM 2.1 mg/dL (1.8-2.4); PHOSPHORUS 4.4 mg/dL (2.5-4.9); POTASSIUM 3.5 mmol/L (3.5-5.1)
--- NOTE | 2021-10-30 06:32 | NUR ---
COMPUTER SYSTEMS INFORMATION DIRECTOR NOTES PT OBTUNDED, NON VERBAL WITH SAME VENT SETTINGS. NOT IN ANY DISTRESS. NO SOB NOTED. NO S/SX OF ANY PAIN OR DISCOMFORT AT THIS TIME. ON TELE SR @ 85 WITH IVF & GTF INFUSING WELL. AM CARE DONE. MONITORED ACCORDINGLY. CALL LIGHT WITHIN REACH. BED IN LOWEST POSITION. SR UP X 3 WITH BED ALARM ON FOR SAFETY. WILL ENDORSE TO NEXT SHIFT.
--- NOTE | 2021-10-30 06:52 | NUR ---
ATHLETIC EQUIPMENT MANAGER NOTES WBC 33.3 DUNG DOCK GRADER MADE AWARE. NNO AT THIS TIME. WILL CONTINUE TO MONITOR
[2021-10-30] MEDS: GLUCERNA 1.2 1,000 ML BOTTLE NG PRN (06:57)
[2021-10-30 06:59] LABS: BASOPHILS # (AUTO) 0.2 K/uL (0.0-0.2); BASOPHILS % (AUTO) 0.6 % (0.0-2.0); EOSINOPHILS % (AUTO) 0.5 % (0.0-6.0); HEMATOCRIT 25 % (39-51); HEMOGLOBIN 8.3 g/dL (13.5-17.5); LYMPHOCYTES # (AUTO) 3.5 K/uL (0.8-4.8); LYMPHOCYTES % (AUTO) 10.5 % (20.0-44.0); MEAN CORPUSCULAR HGB CONC 33 g/dl (31.0-36.0); MEAN CORPUSCULAR VOLUME 96 fL (80-96); MONOCYTES # (AUTO) 3.3 K/uL (0.1-1.30); NEUTROPHILS # (AUTO) 26.1 K/uL (1.8-8.9); NEUTROPHILS % (AUTO) 78.4 % (43.0-81.0); PLATELET COUNT (AUTO) 200 K/uL (150-450); RED BLOOD CELL COUNT(AUTO) 2.61 MIL/uL (4.5-6.0)
[2021-10-30 07:01] LABS: WHITE BLOOD COUNT (AUTO) 33.3 K/uL (4.3-11.0)
--- NOTE | 2021-10-30 07:15 | NUR ---
DATA ENTRY ANALYST NOTES UNABLE TO TAKE PICTURES LAST NIGHT. ENDORSED TO BRIEN BEJARANO FOR CONTINUITY OF CARE
--- NOTE | 2021-10-30 07:30 | NUR ---
FAMILY SERVICES SPECIALIST OPENING NOTES RECEIVED PATIENT ON BED OBTUNDED, NON VERBAL WITH SAME VENT SETTINGS. NOT IN ANY DISTRESS. NO SOB NOTED. NO S/SX OF ANY PAIN OR DISCOMFORT AT THIS TIME. ON TELE MONITOR CURRENTLY READING SR @ 87. WITH IV ACCESS AT RIGHT IJ TRIPLE LUMEN CATHETER G20 WITH IVF NS AT 125ML/HR INFUSING WELL. ON GLUCERNA 1.2 AT 75ML/HR VIA G-TUBE FEEDING. WITH CONDOM CATHETER DRAINING CLEAR YELLOW URINE. SAFETY MEASURES IN PLACED. CALL LIGHT WITHIN REACH. BED IN LOWEST POSITION. SR UP X 3 WITH BED ALARM ON FOR SAFETY. WILL CONTINUE TO MONITOR.
[2021-10-30 08:00] VITALS: BP 100/50
[2021-10-30] MEDS: VALPROIC ACID 250 MG/5 ML UDC GT SCH ×3 (09:06→17:30)
[2021-10-30] MEDS: LACOSAMIDE 50 MG TABLET PO SCH ×2 (09:06→21:30)
[2021-10-30] MEDS: MULTIVITAMINS,THERAGRAN 1 UDTAB TABLET GT SCH (09:06)
[2021-10-30] MEDS: DOCUSATE SODIUM LIQ 100 MG/10 ML UDC GT SCH (09:06)
[2021-10-30] MEDS: FERROUS SULFATE UDC 300 MG/5 ML UDC GT SCH (09:06)
[2021-10-30] MEDS: PANTOPRAZOLE 40 MG/PACK PACK GT SCH (09:06)
[2021-10-30] MEDS: LEVETIRACETAM SOL (5 ML) 100 MG/ML UDC GT SCH ×2 (09:06→21:28)
[2021-10-30] MEDS: ZINC SULFATE 220 MG CAPSULE GT SCH (09:06)
[2021-10-30] MEDS: ARGININE/GLUTAMINE/CALCIUM BMB 1 EACH POWD.PACK GT SCH ×2 (09:06→17:34)
[2021-10-30] MEDS: PROSOURCE / PROSTAT (PYXIS) 30 ML UDC GT SCH (09:06)
[2021-10-30] MEDS: THERAHONEY GEL 1.5 OZ TUBE TP SCH (09:07)
[2021-10-30] MEDS: COLISTIMETHATE SODIUM IV SCH ×2 (10:38→21:39)
[2021-10-30] MEDS: NS 0.9% IV SCH ×2 (10:38→21:39)
[2021-10-30] MEDS: CHLORHEXIDINE GLUCONATE 15 ML UDC MM SCH ×2 (10:38→21:30)
[2021-10-30 12:00] VITALS: BP 113/65
[2021-10-30] MEDS ORDERED: D5W IV SCH (14:00)
[2021-10-30] MEDS ORDERED: GENTAMICIN IV SCH (14:00)
[2021-10-30 16:00] VITALS: BP 96/54
[2021-10-30] MEDS: ASCORBIC ACID 500 MG TABLET GT SCH (17:30)
--- NOTE | 2021-10-30 18:30 | NUR ---
MANUFACTURING CONTROLS ENGINEER CLOSING NOTES PATIENT ON BED OBTUNDED, NON VERBAL WITH SAME VENT SETTINGS. NOT IN ANY DISTRESS. NO SOB NOTED. NO S/SX OF ANY PAIN OR DISCOMFORT AT THIS TIME. ON TELE MONITOR CURRENTLY READING SR @ 98. WITH IV ACCESS AT RIGHT IJ TRIPLE LUMEN CATHETER G20 WITH IVF NS AT 125ML/HR INFUSING WELL. ON GLUCERNA 1.2 AT 75ML/HR VIA G-TUBE FEEDING. WITH CONDOM CATHETER DRAINING CLEAR YELLOW URINE. DUE MEDS GIVEN. SAFETY MEASURES IN PLACED. CALL LIGHT WITHIN REACH. BED IN LOWEST POSITION. SR UP X 3 WITH BED ALARM ON FOR SAFETY. WILL ENDORSE TO NEXT SHIFT FOR JENNY.
--- NOTE | 2021-10-30 19:15 | NUR ---
TELE/RN NOTE RECEIVED PT AWAKE IN BED, NONVERBAL, OBTUNDED. ON VENT AND SAUL SETTINGS WELL. RESPIRATIONS EVEN/UNLABORED. IV ACCESS: R-IJ INTACT/PATENT, RUNNING NS @125ML/HR. GT IN PLACE/PATENT/ NO RESIDUALS NOTED. ON GTF GLUCERNA @75ML/HR AND SAUL WELL, NO N/V NOTED. CONDOM CATH INTACT, DRAINING CLEAR YELLOW URINE. TELE MONITOR READING ST, HR 105. PT IN NO ACUTE DISTRESS. SAFETY MEASURES IN PLACE. WILL CONT TO MONITOR.
[2021-10-30] MEDS: MORPHINE SULFATE INJ 2 MG/ML DISP.SYRIN IV PRN (20:24)
[2021-10-30] MEDS: SENNOSIDES 8.6 MG TABLET GT SCH (21:30)
[2021-10-31] MEDS: BLOOD SUGAR DIAGNOSTIC 1 EACH STRIP IN SCH ×5 (01:00→23:44)
[2021-10-31] MEDS: SULFAMETHOXAZOLE/TRIMETHOPRIM 10 ML in IV D5W 250 ML IV SCH ×4 (01:02→23:43)
[2021-10-31] MEDS: IV NS 0.9% 1,000 ML IV SCH ×3 (03:54→14:21)
[2021-10-31] MEDS: METOPROLOL TARTRATE 50 MG TABLET GT SCH ×5 (05:35→23:44)
[2021-10-31] MEDS: BACLOFEN (10 MG) 10 MG TABLET GT SCH ×3 (05:37→21:15)
[2021-10-31] MEDS: GLUCERNA 1.2 1,000 ML BOTTLE NG PRN (06:00)
[2021-10-31 06:09] LABS: BASOPHILS # (AUTO) 0.2 K/uL (0.0-0.2); BASOPHILS % (AUTO) 0.7 % (0.0-2.0); EOSINOPHILS % (AUTO) 0.8 % (0.0-6.0); HEMATOCRIT 25 % (39-51); HEMOGLOBIN 8.2 g/dL (13.5-17.5); LYMPHOCYTES # (AUTO) 3.5 K/uL (0.8-4.8); LYMPHOCYTES % (AUTO) 12.9 % (20.0-44.0); MEAN CORPUSCULAR HGB CONC 33 g/dl (31.0-36.0); MEAN CORPUSCULAR VOLUME 96 fL (80-96); MONOCYTES # (AUTO) 2.1 K/uL (0.1-1.30); MONOCYTES % (AUTO) 7.8 % (2.0-12.0); NEUTROPHILS # (AUTO) 20.9 K/uL (1.8-8.9); NEUTROPHILS % (AUTO) 77.8 % (43.0-81.0); PLATELET COUNT (AUTO) 227 K/uL (150-450); RED BLOOD CELL COUNT(AUTO) 2.59 MIL/uL (4.5-6.0); WHITE BLOOD COUNT (AUTO) 26.9 K/uL (4.3-11.0)
[2021-10-31 06:12] LABS: CREATININE 3.1 mg/dL (0.6-1.3); MAGNESIUM 1.9 mg/dL (1.8-2.4); PHOSPHORUS 3.9 mg/dL (2.5-4.9); POTASSIUM 3.9 mmol/L (3.5-5.1)
--- NOTE | 2021-10-31 06:16 | NUR ---
RN notes Received a critical lab from Crescencio rodríguez. Pt's BUN in am is 93. Dr. Pennington is aware and informed. Primary nurse is aware and informed.
--- NOTE | 2021-10-31 07:55 | NUR ---
RN OPENING NOTE PATIENT IN BED RESTING, SLEEPING, AWAKENS TO VERBAL STIMULI. A/O X 0, NON-VERBAL. NO S/S OF PAIN NOTED AT THIS TIME. ON VENT AT PRESCRIBED SETTING, TOLERATING SETTING WELL, NO DISTRESS NOTED. IV ACCESS RIGHT IJ, INTACT, PATENT AND FLUSHING WELL. PATIENT HAVE A CONDOM CATH, IN PLACE AND DRAINING WELL. PATIENT ON EXTERNAL SCIENCE CENTER DISPLAY BUILDER WITH CURRENT READING OF ST AND HR OF 128. FALL AND SAFETY MEASURES IN PLACE, BED ALARM ON, BED IN LOW AND LOCK POSITION, CALL LIGHT AND TABLE WITHIN EASY REACH, SIDE RAILS UP X2. WILL CONTINUE TO MONITOR.
[2021-10-31 08:00] VITALS: BP 105/61
[2021-10-31] MEDS: ARGININE/GLUTAMINE/CALCIUM BMB 1 EACH POWD.PACK GT SCH ×2 (09:06→17:11)
[2021-10-31] MEDS: PROSOURCE / PROSTAT (PYXIS) 30 ML UDC GT SCH (09:06)
[2021-10-31] MEDS: CHLORHEXIDINE GLUCONATE 15 ML UDC MM SCH ×2 (09:07→21:16)
[2021-10-31] MEDS: FERROUS SULFATE UDC 300 MG/5 ML UDC GT SCH (09:07)
[2021-10-31] MEDS: LEVETIRACETAM SOL (5 ML) 100 MG/ML UDC GT SCH ×2 (09:07→21:15)
[2021-10-31] MEDS: PANTOPRAZOLE 40 MG/PACK PACK GT SCH (09:07)
[2021-10-31] MEDS: DOCUSATE SODIUM LIQ 100 MG/10 ML UDC GT SCH (09:07)
[2021-10-31] MEDS: MULTIVITAMINS,THERAGRAN 1 UDTAB TABLET GT SCH (09:08)
[2021-10-31] MEDS: LACOSAMIDE 50 MG TABLET PO SCH ×2 (09:08→21:16)
[2021-10-31] MEDS: ZINC SULFATE 220 MG CAPSULE GT SCH (09:08)
[2021-10-31] MEDS: VALPROIC ACID 250 MG/5 ML UDC GT SCH ×3 (09:08→17:12)
[2021-10-31] MEDS: THERAHONEY GEL 1.5 OZ TUBE TP SCH (09:15)
[2021-10-31 09:36] LABS: EOSINOPHILS % (MANUAL) 1 % (0-4); LYMPHOCYTES % (MANUAL) 16 % (16-48); METAMYELOCYTES % 2 % (0-0); MONOCYTES % (MANUAL) 8 % (0-11.0); MYELOCYTES % 2 % (0-0); NEUTROPHILS % (MANUAL) 71 (42-76)
[2021-10-31] MEDS: NS 0.9% IV SCH ×2 (10:41→21:10)
[2021-10-31] MEDS: COLISTIMETHATE SODIUM IV SCH ×2 (10:41→21:10)
[2021-10-31 12:00] VITALS: BP 113/62
[2021-10-31] MEDS ORDERED: GENTAMICIN 120 MG in IV D5W 100 ML IV SCH (14:00)
[2021-10-31 16:00] VITALS: BP 142/100
[2021-10-31] MEDS: ASCORBIC ACID 500 MG TABLET GT SCH (17:12)
--- NOTE | 2021-10-31 18:59 | NUR ---
RN CLOSING NOTE PATIENT IN BED RESTING, AWAKE. A/O X 0, NON-VERBAL. NO S/S OF PAIN NOTED AT THIS TIME. ON VENT AT PRESCRIBED SETTING, TOLERATING SETTING WELL, NO DISTRESS NOTED. IV ACCESS RIGHT IJ, INTACT, PATENT AND FLUSHING WELL. PATIENT HAVE A CONDOM CATH, IN PLACE AND DRAINING WELL, OUTPUT 2500ML. PATIENT ON EXTERNAL [place]OCK [place] WITH CURRENT READING OF SR AND HR OF 98. ALL SCHEDULE MEDICATIONS ADMINISTERED. FALL AND SAFETY MEASURES IN PLACE, BED ALARM ON, BED IN LOW AND LOCK POSITION, CALL LIGHT AND TABLE WITHIN EASY REACH, SIDE RAILS UP X2. WILL ENDORSE TO HEAD OF HOUSEKEEPING.
--- NOTE | 2021-10-31 19:20 | NUR ---
RN NOTE RECEIVED PT AWAKE IN BED, NONVERBAL, EYES OPEN. RESPIRATIONS EVEN/UNLABORED. ON VENT AND SAUL SETTINGS WELL. IV SITE: R-IJ INTACT/PATENT, RUNNING NS @125ML/HR. GT IN PLACE/PATENT/ NO RESIDUALS NOTED. CONT ON GTF GLUCERNA @75ML/HR AND SAUL WELL, NO N/V NOTED. CONDOM CATH INTACT, DRAINING CLEAR YELLOW URINE. TELE MONITOR READING ST, HR 106. PT IN NO ACUTE DISTRESS. SAFETY MEASURES IN PLACE. WILL CONT TO MONITOR.
[2021-10-31] MEDS: MORPHINE SULFATE INJ 2 MG/ML DISP.SYRIN IV PRN (20:22)
--- NOTE | 2021-10-31 20:22 | NUR ---
RN NOTE NOTED PT WITH HR 121, RR 38, PERSPIRING. GIVEN PRN MORPHINE 2MG ORDERED. WILL CONT TO MONITOR
--- NOTE | 2021-10-31 20:35 | NUR ---
RN NOTE HR 100, RR 27
--- NOTE | 2021-10-31 20:56 | NUR ---
RN NOTE HR 98, RR 21. EYES CLOSED, APPEARS ASLEEP. NO S/S OF PAIN NOTED AT THIS TIME.
[2021-10-31 21:04] VITALS: BP 101/48
[2021-10-31] MEDS: SENNOSIDES 8.6 MG TABLET GT SCH (21:15)
[2021-10-31] MEDS: ACETAMINOPHEN 650 MG/20.3 ML UDC PEG PRN (22:23)
[2021-11-01 00:18] VITALS: BP 84/46
[2021-11-01] MEDS: IV NS 0.9% 1,000 ML IV SCH ×2 (00:29→05:40)
--- NOTE | 2021-11-01 00:50 | NUR ---
RN NOTE NOTED BP 84/43, HR 89, RR21. O2 SAT WENT DOWN TO 88, THEN UP TO 97%. PT WITH LG AMOUNT OF THICK SECRETIONS ORALLY, ORAL SUCTION DONE. RT WAS CALLED TO ASSESS. CN AWARE.
--- NOTE | 2021-11-01 00:55 | NUR ---
RN NOTE RT CAME, ASSESSED AND SUCTIONED MOD AMT THICK SECRETIONS. HR 94, RR 22 EVEN/UNLABORED, O2 SAT NOW 99%. WILL CONT TO MONITOR
[2021-11-01 04:51] VITALS: BP 86/47
[2021-11-01 05:01] VITALS: BP 91/56
--- NOTE | 2021-11-01 05:03 | NUR ---
RN NOTE BP 91/56, T 98.8, HR 89, RR 20 EVEN/UNLABORED, MECH VENT. NO ACUTE DISTRESS NOTED. WILL CONT TO MONITOR.
[2021-11-01] MEDS: BACLOFEN (10 MG) 10 MG TABLET GT SCH ×3 (05:09→20:46)
[2021-11-01] MEDS: METOPROLOL TARTRATE 50 MG TABLET GT SCH ×3 (05:11→17:30)
[2021-11-01] MEDS: GLUCERNA 1.2 1,000 ML BOTTLE NG PRN ×2 (05:30→19:59)
[2021-11-01] MEDS: BLOOD SUGAR DIAGNOSTIC 1 EACH STRIP IN SCH ×3 (05:34→17:16)
--- NOTE | 2021-11-01 05:47 | NUR ---
RN NOTE ONCALL HOSPITALIST SANJANA, DNP NOTIFIED OF LOW BP'S WITH NO NEW ORDER
[2021-11-01 07:14] LABS: BASOPHILS % (AUTO) 0.2 % (0.0-2.0); EOSINOPHILS % (AUTO) 1.2 % (0.0-6.0); HEMATOCRIT 24 % (39-51); HEMOGLOBIN 7.8 g/dL (13.5-17.5); LYMPHOCYTES # (AUTO) 1.8 K/uL (0.8-4.8); LYMPHOCYTES % (AUTO) 11.4 % (20.0-44.0); MEAN CORPUSCULAR HGB CONC 33 g/dl (31.0-36.0); MEAN CORPUSCULAR VOLUME 96 fL (80-96); MONOCYTES # (AUTO) 1.1 K/uL (0.1-1.30); MONOCYTES % (AUTO) 6.5 % (2.0-12.0); NEUTROPHILS % (AUTO) 80.7 % (43.0-81.0); PLATELET COUNT (AUTO) 220 K/uL (150-450); RED BLOOD CELL COUNT(AUTO) 2.47 MIL/uL (4.5-6.0); WHITE BLOOD COUNT (AUTO) 16.1 K/uL (4.3-11.0)
[2021-11-01 07:40] LABS: CALCIUM, SERUM 8.7 mg/dL (8.5-10.1); MAGNESIUM 1.7 mg/dL (1.8-2.4); PHOSPHORUS 4.6 mg/dL (2.5-4.9); POTASSIUM 3.7 mmol/L (3.5-5.1)
--- NOTE | 2021-11-01 07:52 | NUR ---
RN OPENING NOTE PATIENT IN BED RESTING, SLEEPING, AWAKENS TO VERBAL STIMULI. A/O X 0, NON-VERBAL. NO S/S OF PAIN NOTED AT THIS TIME. ON VENT AT PRESCRIBED SETTING, TOLERATING SETTING WELL, NO DISTRESS NOTED. IV ACCESS RIGHT IJ, INTACT, PATENT AND FLUSHING WELL. PATIENT HAVE A CONDOM CATH, IN PLACE AND DRAINING WELL. PATIENT ON EXTERNAL SALES PERSON WITH CURRENT READING OF ST AND HR OF 128. FALL AND SAFETY MEASURES IN PLACE, BED ALARM ON, BED IN LOW AND LOCK POSITION, CALL LIGHT AND TABLE WITHIN EASY REACH, SIDE RAILS UP X2. WILL CONTINUE TO MONITOR.
[2021-11-01] MEDS: PROSOURCE / PROSTAT (PYXIS) 30 ML UDC GT SCH (08:59)
[2021-11-01] MEDS: SULFAMETHOXAZOLE/TRIMETHOPRIM 10 ML in IV D5W 250 ML IV SCH ×3 (08:59→23:59)
[2021-11-01] MEDS: ARGININE/GLUTAMINE/CALCIUM BMB 1 EACH POWD.PACK GT SCH ×2 (08:59→17:30)
[2021-11-01] MEDS: PANTOPRAZOLE 40 MG/PACK PACK GT SCH (09:00)
[2021-11-01] MEDS: FERROUS SULFATE UDC 300 MG/5 ML UDC GT SCH (09:00)
[2021-11-01] MEDS: ZINC SULFATE 220 MG CAPSULE GT SCH (09:00)
[2021-11-01] MEDS: LACOSAMIDE 50 MG TABLET PO SCH ×2 (09:00→20:46)
[2021-11-01] MEDS: MULTIVITAMINS,THERAGRAN 1 UDTAB TABLET GT SCH (09:00)
[2021-11-01] MEDS: DOCUSATE SODIUM LIQ 100 MG/10 ML UDC GT SCH (09:00)
[2021-11-01] MEDS: LEVETIRACETAM SOL (5 ML) 100 MG/ML UDC GT SCH ×2 (09:00→20:45)
[2021-11-01] MEDS: CHLORHEXIDINE GLUCONATE 15 ML UDC MM SCH ×2 (09:00→20:45)
[2021-11-01] MEDS: VALPROIC ACID 250 MG/5 ML UDC GT SCH ×3 (09:01→17:31)
[2021-11-01] MEDS: THERAHONEY GEL 1.5 OZ TUBE TP SCH (09:01)
[2021-11-01 09:32] LABS: LYMPHOCYTES % (MANUAL) 10 % (16-48); MONOCYTES % (MANUAL) 5 % (0-11.0); NEUTROPHILS % (MANUAL) 85 (42-76)
[2021-11-01] MEDS: COLISTIMETHATE SODIUM IV SCH ×2 (10:33→20:44)
[2021-11-01] MEDS: NS 0.9% IV SCH ×2 (10:33→20:44)
[2021-11-01] MEDS: IV NS 0.9% 1,000 ML IV PRN (16:21)
[2021-11-01] MEDS: ASCORBIC ACID 500 MG TABLET GT SCH (17:30)
--- NOTE | 2021-11-01 18:57 | NUR ---
RN CLOSING NOTE PATIENT IN BED RESTING, SLEEPING, AWAKENS TO VERBAL STIMULI. A/O X 0, NON-VERBAL. NO S/S OF PAIN NOTED AT THIS TIME. ON VENT AT PRESCRIBED SETTING, TOLERATING SETTING WELL, NO DISTRESS NOTED. IV ACCESS RIGHT IJ, INTACT, EYAL MIDLINE, PATENT AND FLUSHING WELL. PATIENT HAVE A CONDOM CATH, IN PLACE AND DRAINING WELL, OUTPUT 1200ML. PATIENT ON EXTERNAL DENTAL ASSISTANT TEACHER WITH CURRENT READING OF ST AND HR OF 106. ALL SCHEDULE MEDICATION ADMINISTERED. WOUND CARE IMPLEMENTED. PATIENT WAS TURNED AND REPOSITIONED PER PROTOCOL. FALL AND SAFETY MEASURES IN PLACE, BED ALARM ON, BED IN LOW AND LOCK POSITION, CALL LIGHT AND TABLE WITHIN EASY REACH, SIDE RAILS UP X2. WILL ENDORSE TO SYBASE DEVELOPER
--- NOTE | 2021-11-01 19:00 | NUR ---
eyes open trach clean pulse ox reads 100% HR 99 condom cath yellow drainage asp precautions
[2021-11-01 20:00] VITALS: BP 98/65
[2021-11-01] MEDS: SENNOSIDES 8.6 MG TABLET GT SCH (21:43)
[2021-11-01] MEDS: HYDROCODONE/APAP 5/325MG TABLET GT PRN (21:43)
[2021-11-02] VITALS: BP 102/51
[2021-11-02] MEDS: METOPROLOL TARTRATE 50 MG TABLET GT SCH ×4 (00:07→17:43)
[2021-11-02] MEDS: BLOOD SUGAR DIAGNOSTIC 1 EACH STRIP IN SCH ×4 (00:08→17:46)
[2021-11-02] MEDS: IV NS 0.9% 1,000 ML IV PRN ×2 (02:18→19:49)
[2021-11-02] MEDS: BACLOFEN (10 MG) 10 MG TABLET GT SCH ×3 (05:59→20:50)
--- NOTE | 2021-11-02 06:36 | NUR ---
CLOSING NOTES: eyes open not focusing on anything oral care done X4 mouth open cont fatima output 1400 ml midline right upper arm dressing CDI IJ right neck removed as ordered trach dressing CDI
[2021-11-02 06:39] LABS: BASOPHILS % (AUTO) 0.1 % (0.0-2.0); EOSINOPHILS % (AUTO) 2.1 % (0.0-6.0); HEMATOCRIT 25 % (39-51); HEMOGLOBIN 8.4 g/dL (13.5-17.5); LYMPHOCYTES # (AUTO) 2.5 K/uL (0.8-4.8); LYMPHOCYTES % (AUTO) 18.4 % (20.0-44.0); MEAN CORPUSCULAR HGB CONC 34 g/dl (31.0-36.0); MEAN CORPUSCULAR VOLUME 95 fL (80-96); MONOCYTES % (AUTO) 7.4 % (2.0-12.0); NEUTROPHILS # (AUTO) 9.7 K/uL (1.8-8.9); PLATELET COUNT (AUTO) 227 K/uL (150-450); RED BLOOD CELL COUNT(AUTO) 2.63 MIL/uL (4.5-6.0); WHITE BLOOD COUNT (AUTO) 13.4 K/uL (4.3-11.0)
[2021-11-02 06:55] LABS: CALCIUM, SERUM 9.3 mg/dL (8.5-10.1); CREATININE 2.5 mg/dL (0.6-1.3); MAGNESIUM 1.5 mg/dL (1.8-2.4); PHOSPHORUS 4.4 mg/dL (2.5-4.9); POTASSIUM 4.6 mmol/L (3.5-5.1)
--- NOTE | 2021-11-02 07:35 | NUR ---
ms rn received patient on bed, nonverbal, vent dependent, g tube intact w/feeding set at 75 ml /hour, no residual noted, patient tolerating at this time,no s/s of pain at this time, nsr-sinus tach at this time,repositioned for comfort,all needs attended.
--- NOTE | 2021-11-02 10:00 | NUR ---
ms leeann due meds given via g tube,tolerated well.
[2021-11-02] MEDS: ARGININE/GLUTAMINE/CALCIUM BMB 1 EACH POWD.PACK GT SCH ×2 (10:03→17:48)
[2021-11-02] MEDS: PROSOURCE / PROSTAT (PYXIS) 30 ML UDC GT SCH (10:03)
[2021-11-02] MEDS: FERROUS SULFATE UDC 300 MG/5 ML UDC GT SCH (10:04)
[2021-11-02] MEDS: DOCUSATE SODIUM LIQ 100 MG/10 ML UDC GT SCH (10:04)
[2021-11-02] MEDS: LEVETIRACETAM SOL (5 ML) 100 MG/ML UDC GT SCH ×2 (10:04→20:49)
[2021-11-02] MEDS: CHLORHEXIDINE GLUCONATE 15 ML UDC MM SCH ×2 (10:04→20:50)
[2021-11-02] MEDS: PANTOPRAZOLE 40 MG/PACK PACK GT SCH (10:05)
[2021-11-02] MEDS: ZINC SULFATE 220 MG CAPSULE GT SCH (10:05)
[2021-11-02] MEDS: VALPROIC ACID 250 MG/5 ML UDC GT SCH ×3 (10:05→17:43)
[2021-11-02] MEDS: MULTIVITAMINS,THERAGRAN 1 UDTAB TABLET GT SCH (10:05)
[2021-11-02] MEDS: LACOSAMIDE 50 MG TABLET PO SCH ×2 (10:06→20:51)
[2021-11-02] MEDS: COLISTIMETHATE SODIUM IV SCH ×2 (10:08→21:00)
[2021-11-02] MEDS: SULFAMETHOXAZOLE/TRIMETHOPRIM 10 ML in IV D5W 250 ML IV SCH ×2 (10:08→17:45)
[2021-11-02] MEDS: NS 0.9% IV SCH ×2 (10:08→21:00)
[2021-11-02 12:24] LABS: EOSINOPHILS % (MANUAL) 2 % (0-4); LYMPHOCYTES % (MANUAL) 18 % (16-48); METAMYELOCYTES % 1 % (0-0); MONOCYTES % (MANUAL) 4 % (0-11.0); MYELOCYTES % 2 % (0-0); NEUTROPHILS % (MANUAL) 73 (42-76)
[2021-11-02] MEDS: THERAHONEY GEL 1.5 OZ TUBE TP SCH (14:14)
--- NOTE | 2021-11-02 15:19 | NUR ---
ms rn on bed, all needs attended.
[2021-11-02] MEDS: ASCORBIC ACID 500 MG TABLET GT SCH (17:43)
--- NOTE | 2021-11-02 18:00 | NUR ---
ms rn change dressing to both lower legs,all needs attended.
[2021-11-02] MEDS ORDERED: Magnesium 1GM/D5W 100ML PREMIX 100 ML IV SCH ×2 (18:30→19:30)
[2021-11-02] MEDS: AMPICILLIN 1 GM in IV NS 0.9% 50 ML IV SCH (18:39)
[2021-11-02 20:00] VITALS: BP 96/51
[2021-11-02] MEDS: SENNOSIDES 8.6 MG TABLET GT SCH (22:25)
[2021-11-03] MEDS: METOPROLOL TARTRATE 50 MG TABLET GT SCH ×4 (00:08→17:58)
[2021-11-03] MEDS: AMPICILLIN 1 GM in IV NS 0.9% 50 ML IV SCH ×4 (00:09→18:00)
[2021-11-03] MEDS: SULFAMETHOXAZOLE/TRIMETHOPRIM 10 ML in IV D5W 250 ML IV SCH ×3 (00:09→16:00)
[2021-11-03] MEDS: BLOOD SUGAR DIAGNOSTIC 1 EACH STRIP IN SCH ×4 (00:21→17:59)
--- NOTE | 2021-11-03 01:21 | NUR ---
RT NOTE PT IS ON [facility] VENT SETTINGS ORDERED. TRACH IS PATENT AND SECURED. SXED PT PRN. SPARE TRACH AND AMBU BAG AT BEDSIDE. VENT IS PLUGGED INTO RED OUTLET AND ALARMS ARE ON AND AUDIBLE. NO SOB OR RESPIRATORY DISTRESS NOTED. WILL CONTINUE TO MONITOR T/O SHIFT
[2021-11-03 04:00] VITALS: BP 133/63
[2021-11-03] MEDS: BACLOFEN (10 MG) 10 MG TABLET GT SCH ×3 (05:13→21:27)
[2021-11-03 06:15] LABS: CALCIUM, SERUM 9.8 mg/dL (8.5-10.1); CREATININE 2.8 mg/dL (0.6-1.3); MAGNESIUM 1.9 mg/dL (1.8-2.4); PHOSPHORUS 4.9 mg/dL (2.5-4.9); POTASSIUM 5.2 mmol/L (3.5-5.1)
[2021-11-03 06:42] LABS: BASOPHILS # (AUTO) 0.1 K/uL (0.0-0.2); BASOPHILS % (AUTO) 0.3 % (0.0-2.0); EOSINOPHILS % (AUTO) 1.3 % (0.0-6.0); HEMATOCRIT 26 % (39-51); HEMOGLOBIN 8.7 g/dL (13.5-17.5); LYMPHOCYTES # (AUTO) 3.9 K/uL (0.8-4.8); LYMPHOCYTES % (AUTO) 21.3 % (20.0-44.0); MEAN CORPUSCULAR HGB CONC 34 g/dl (31.0-36.0); MEAN CORPUSCULAR VOLUME 96 fL (80-96); MONOCYTES % (AUTO) 5.7 % (2.0-12.0); NEUTROPHILS # (AUTO) 13.1 K/uL (1.8-8.9); NEUTROPHILS % (AUTO) 71.4 % (43.0-81.0); PLATELET COUNT (AUTO) 281 K/uL (150-450); RED BLOOD CELL COUNT(AUTO) 2.71 MIL/uL (4.5-6.0); WHITE BLOOD COUNT (AUTO) 18.4 K/uL (4.3-11.0)
--- NOTE | 2021-11-03 07:30 | NUR ---
ms rn received on bed, non verbal patient,bed dependent w/ trach, g tube intact w/ feeding tolerating at 75ml/hour rate, no residual noted.no s/s of distress noted, repositioned for comfort,all needs attended.
[2021-11-03 08:34] VITALS: BP 101/48
[2021-11-03] MEDS: LEVETIRACETAM SOL (5 ML) 100 MG/ML UDC GT SCH ×2 (09:04→21:26)
[2021-11-03] MEDS: ZINC SULFATE 220 MG CAPSULE GT SCH (09:04)
[2021-11-03] MEDS: DOCUSATE SODIUM LIQ 100 MG/10 ML UDC GT SCH (09:04)
[2021-11-03] MEDS: LACOSAMIDE 50 MG TABLET PO SCH ×2 (09:04→21:27)
[2021-11-03] MEDS: CHLORHEXIDINE GLUCONATE 15 ML UDC MM SCH ×2 (09:04→21:26)
[2021-11-03] MEDS: FERROUS SULFATE UDC 300 MG/5 ML UDC GT SCH (09:04)
[2021-11-03] MEDS: PANTOPRAZOLE 40 MG/PACK PACK GT SCH (09:05)
[2021-11-03] MEDS: MULTIVITAMINS,THERAGRAN 1 UDTAB TABLET GT SCH (09:05)
[2021-11-03] MEDS: VALPROIC ACID 250 MG/5 ML UDC GT SCH ×3 (09:05→17:57)
[2021-11-03] MEDS: PROSOURCE / PROSTAT (PYXIS) 30 ML UDC GT SCH (09:07)
[2021-11-03] MEDS: ARGININE/GLUTAMINE/CALCIUM BMB 1 EACH POWD.PACK GT SCH ×2 (09:07→17:59)
[2021-11-03 09:36] LABS: IRON, SERUM 39 ug/dl (50-175); TOTAL IRON BINDING CAPACITY 320 ug/dl (250-450)
[2021-11-03 09:49] LABS: FERRITIN 236 ng/mL (8-388)
[2021-11-03] MEDS: NS 0.9% IV SCH ×2 (09:49→21:00)
[2021-11-03] MEDS: THERAHONEY GEL 1.5 OZ TUBE TP SCH (09:49)
[2021-11-03] MEDS: COLISTIMETHATE SODIUM IV SCH ×2 (09:49→21:00)
--- NOTE | 2021-11-03 10:00 | NUR ---
ms rn am care done, due meds given,tollerated well via g tube.
[2021-11-03] MEDS: IV NS 0.9% 1,000 ML IV PRN (10:02)
[2021-11-03 10:15] LABS: EOSINOPHILS % (MANUAL) 1 % (0-4); LYMPHOCYTES % (MANUAL) 17 % (16-48); METAMYELOCYTES % 1 % (0-0); MONOCYTES % (MANUAL) 4 % (0-11.0); MYELOCYTES % 1 % (0-0); NEUTROPHILS % (MANUAL) 76 (42-76)
[2021-11-03 12:31] VITALS: BP 107/60
--- NOTE | 2021-11-03 15:00 | NUR ---
ms wood furniture assembler at bedside,all needs attended.
--- NOTE | 2021-11-03 16:35 | NUR ---
ms rn cleaning pt, accidentally pulled out midline, charge nurse notified, iv atb cannot administered.
[2021-11-03 16:47] VITALS: BP 128/56
--- NOTE | 2021-11-03 17:35 | NUR ---
ms rn sup notified,patient needs midline,all needs attended.
[2021-11-03] MEDS: ASCORBIC ACID 500 MG TABLET GT SCH (17:57)
[2021-11-03] MEDS: GLUCERNA 1.2 1,000 ML BOTTLE NG PRN (17:59)
[2021-11-03] MEDS ORDERED: AMPICILLIN 1 GM in IV NS 0.9% 50 ML IV SCH (18:30)
[2021-11-03 20:38] VITALS: BP 81/41
--- NOTE | 2021-11-03 20:59 | NUR ---
/TRICIA/CARLEE ON INITIAL ASSESSMENT AT 1929, PATIENT WAS LYING IN BED AWAKE, ALERT, ORIENTED, APPEARS COMFORTABLE, NO SIGNS OF DISTRESS NOTED, CALL LIGHT IN REACH, FALL PRECAUTIONS PER PROTOCOL IMPLEMENTED, WILL MONITOR. Addendum: 11/03/21 at 2102 by REKHA RAMIREZ RN PLEASE DISREGARD ABOVE DOCUMENTATION, IT WAS CHARTED TO THE WRONG PATIENT.
--- NOTE | 2021-11-03 21:02 | NUR ---
MS/TELE/RN ON INITIAL SHIFT ASSESSMENT, PATIENT WAS LYING IN BED EYES OPEN, NON VERBAL, ON MECHANICAL VENTILATOR, ON G TUBE FEEDING, HOB ELEVATED, WILL MONITOR.
[2021-11-03] MEDS: SULFAMETH/TRIMETH 800/160 MG 1 UDTAB TABLET GT SCH (21:26)
[2021-11-03] MEDS: SENNOSIDES 8.6 MG TABLET GT SCH (21:27)
--- NOTE | 2021-11-03 23:49 | NUR ---
MS/TELE/RN COLISTIMETHATE SODIUM IV DUE AT 2100 WAS NOT ADMINISTERED DUE TO NO IV ACCESS.
[2021-11-04] VITALS (7 sets, daily range): BP systolic 85–128; BP diastolic 43–86
[2021-11-04] MEDS: ACETAMINOPHEN 650 MG/20.3 ML UDC PEG PRN (00:36)
[2021-11-04] MEDS: BLOOD SUGAR DIAGNOSTIC 1 EACH STRIP IN SCH ×5 (00:36→23:58)
[2021-11-04] MEDS: METOPROLOL TARTRATE 50 MG TABLET GT SCH ×5 (00:42→23:38)
--- NOTE | 2021-11-04 00:55 | NUR ---
MS/TELE/RN AMPICILLIN IV NOT ADMINISTERED, NO IV ACCESS. TEMP 100.2, TYLENOL 650 MG GT WAS ADMINISTERED. WILL MONITOR.
[2021-11-04 03:43] LABS: BASOPHILS % (AUTO) 0.2 % (0.0-2.0); EOSINOPHILS % (AUTO) 1.5 % (0.0-6.0); HEMATOCRIT 28 % (39-51); HEMOGLOBIN 9.2 g/dL (13.5-17.5); LYMPHOCYTES # (AUTO) 3.4 K/uL (0.8-4.8); LYMPHOCYTES % (AUTO) 22.7 % (20.0-44.0); MEAN CORPUSCULAR HGB CONC 33 g/dl (31.0-36.0); MEAN CORPUSCULAR VOLUME 96 fL (80-96); MONOCYTES # (AUTO) 1.1 K/uL (0.1-1.30); MONOCYTES % (AUTO) 7.1 % (2.0-12.0); NEUTROPHILS # (AUTO) 10.4 K/uL (1.8-8.9); NEUTROPHILS % (AUTO) 68.5 % (43.0-81.0); PLATELET COUNT (AUTO) 324 K/uL (150-450); RED BLOOD CELL COUNT(AUTO) 2.91 MIL/uL (4.5-6.0); WHITE BLOOD COUNT (AUTO) 15.1 K/uL (4.3-11.0)
[2021-11-04 04:00] LABS: CALCIUM, SERUM 9.8 mg/dL (8.5-10.1); CREATININE 3.1 mg/dL (0.6-1.3); MAGNESIUM 1.8 mg/dL (1.8-2.4); PHOSPHORUS 5.6 mg/dL (2.5-4.9); POTASSIUM 4.1 mmol/L (3.5-5.1)
[2021-11-04] MEDS: AMPICILLIN 1 GM in IV NS 0.9% 50 ML IV SCH ×6 (06:00→23:42)
[2021-11-04] MEDS: BACLOFEN (10 MG) 10 MG TABLET GT SCH ×3 (06:03→21:35)
[2021-11-04] MEDS: SULFAMETH/TRIMETH 800/160 MG 1 UDTAB TABLET GT SCH ×2 (06:04→10:21)
--- NOTE | 2021-11-04 06:37 | NUR ---
MS/TELE/RN PATIENT APPEAR SLEEPING, NO SIGNS OF DISTRESS NOTED, HOB ELEVATED, G TUBE FEEDING INFUSING, ALL NEEDS ATTENDED AT THIS TIME. AMPICILLIN IV NOT ADMINISTERED, PATIENT HAS NO IV ACCESS. WILL CONTINUE TO MONITOR.
--- NOTE | 2021-11-04 07:30 | NUR ---
ms rn received on bed, non verbal, vent dependent patient, g tube intact w/ feeding at 75ml/hour,tolerating well w/o residual,fatima to gravity w/ yellowish urine output,repositioned for comfort, for midline insertion today,all needs attended.
--- NOTE | 2021-11-04 10:00 | NUR ---
ms rn am care done,due meds given via g tube,all needs attended.
[2021-11-04] MEDS: DOCUSATE SODIUM LIQ 100 MG/10 ML UDC GT SCH (10:21)
[2021-11-04] MEDS: PANTOPRAZOLE 40 MG/PACK PACK GT SCH (10:21)
[2021-11-04] MEDS: CHLORHEXIDINE GLUCONATE 15 ML UDC MM SCH ×2 (10:21→21:35)
[2021-11-04] MEDS: LEVETIRACETAM SOL (5 ML) 100 MG/ML UDC GT SCH ×2 (10:21→21:35)
[2021-11-04] MEDS: FERROUS SULFATE UDC 300 MG/5 ML UDC GT SCH (10:21)
[2021-11-04] MEDS: ZINC SULFATE 220 MG CAPSULE GT SCH (10:22)
[2021-11-04] MEDS: VALPROIC ACID 250 MG/5 ML UDC GT SCH ×3 (10:22→17:38)
[2021-11-04] MEDS: LACOSAMIDE 50 MG TABLET PO SCH ×2 (10:22→21:35)
[2021-11-04] MEDS: MULTIVITAMINS,THERAGRAN 1 UDTAB TABLET GT SCH (10:22)
[2021-11-04] MEDS: THERAHONEY GEL 1.5 OZ TUBE TP SCH (10:24)
[2021-11-04] MEDS: PROSOURCE / PROSTAT (PYXIS) 30 ML UDC GT SCH (10:25)
[2021-11-04] MEDS: ARGININE/GLUTAMINE/CALCIUM BMB 1 EACH POWD.PACK GT SCH ×2 (10:25→17:36)
[2021-11-04] MEDS: NS 0.9% IV SCH ×2 (10:29→21:22)
[2021-11-04] MEDS: COLISTIMETHATE SODIUM IV SCH ×2 (10:29→21:22)
--- NOTE | 2021-11-04 11:30 | NUR ---
ms rn midline placed at right upper arm, will used for atb.
[2021-11-04] MEDS: SULFAMETHOXAZOLE/TRIMETHOPRIM 10 ML in IV D5W 250 ML IV SCH ×3 (16:10)
[2021-11-04] MEDS: ASCORBIC ACID 500 MG TABLET GT SCH (17:38)
--- NOTE | 2021-11-04 19:00 | NUR ---
ms rn omn bed,no distress noted all needs attended.
--- NOTE | 2021-11-04 19:30 | NUR ---
BASIN OPERATOR OPENING RECEIVED PATIENT IN BED, OBTUNDED, EYES OPEN. NO S/S OF APPARENT DISTRESS-- VENT DEPENDENT SATURATING @100%. NOT EXHIBITING PAIN VIA FLACC. TELE MONITOR READING SR AT THIS TIME. GLUCERNA NOTED TO BE RUNNING IN PLACE @75CC/HR. CONDOM CATH IN PLACE. R. UPPER ARM MIDLINE RUNNING NS @125MLS/HR. SAFETY IN PLACE. WILL CONTINUE WITH PLAN OF CARE FOR PATIENT.
[2021-11-04] MEDS: SENNOSIDES 8.6 MG TABLET GT SCH (21:35)
--- NOTE | 2021-11-04 22:00 | NUR ---
MANAGER MANAGING NOTE- OMNICELL DISCREPANCY PULLED OUT 1 VIMPAT INSTEAD OF 3 TABS. OMNICELL HAS 4 TABS. REOPENED TO GET THE OTHER 2 TABS OF VIMPAT BUT 0 COUNT LEFT ON THE OMNICELL. 1 VIMPAT LEFT IN THE OMNICELL. REPORTED TI CHARGE NURSE JEZ AND TRIED TO CYCLE COUNT BUT IT WOULD NOT LET US SINCE IT IS SAYING THERE IS NO DISCREPANCY. WILL REPORT TO PHARMACY ABOUT INCIDENT. 1 VIMPAT LEFT IN OMNICELL.
[2021-11-04] MEDS: HYDROCODONE/APAP 5/325MG TABLET GT PRN (23:38)
--- NOTE | 2021-11-04 23:41 | NUR ---
RT PT RECVD [facility]WAKE [facility] WITH TRACH PATENT AND SECURED. SUCTION PRN AND TRACH CARE DONE. VENT IS PLUGGED INTO RED WALL OUTLET WITH ALARMS ON AND AUDIBLE. SPARE TRACH AND BVM AT BEDSIDE. NO SOB OR RESPIRATORY DISTRESS NOTED AT THIS TIME.
--- NOTE | 2021-11-04 23:48 | NUR ---
RN PERIOPERATIVE NOTE PATIENT PERSPIRING AND VS CHANGES WITH HR OF 110. GIVEN NORCO 5 FOR PAIN. WILL MONITOR.
[2021-11-04] MEDS: INSULIN REGULAR, HUMAN 100 UNIT/ML 3 ML VIAL SQ PRN (23:59)
[2021-11-05] MEDS: SULFAMETHOXAZOLE/TRIMETHOPRIM 10 ML in IV D5W 250 ML IV SCH ×3 (00:20→15:37)
--- NOTE | 2021-11-05 03:00 | NUR ---
CLERICAL OFFICE WORKER NOTE VOMITED X1 AT THIS TIME. HOB ELEVATED ALL THE WAY. TURNED FEEDING OFF AT THIS TIME. WILL MONITOR.
[2021-11-05] MEDS: IV NS 0.9% 1,000 ML IV PRN ×2 (03:47→18:33)
[2021-11-05 04:00] VITALS: BP 105/55
[2021-11-05] MEDS: BACLOFEN (10 MG) 10 MG TABLET GT SCH ×3 (05:53→21:07)
[2021-11-05] MEDS: METOPROLOL TARTRATE 50 MG TABLET GT SCH ×3 (05:53→17:40)
[2021-11-05] MEDS: AMPICILLIN 1 GM in IV NS 0.9% 50 ML IV SCH ×4 (05:54→23:22)
[2021-11-05] MEDS: BLOOD SUGAR DIAGNOSTIC 1 EACH STRIP IN SCH ×3 (06:12→17:40)
[2021-11-05] MEDS: INSULIN REGULAR, HUMAN 100 UNIT/ML 3 ML VIAL SQ PRN ×3 (06:13→17:41)
[2021-11-05 06:54] LABS: BASOPHILS % (AUTO) 0.3 % (0.0-2.0); EOSINOPHILS % (AUTO) 1.5 % (0.0-6.0); HEMATOCRIT 25 % (39-51); HEMOGLOBIN 8.2 g/dL (13.5-17.5); LYMPHOCYTES # (AUTO) 3.4 K/uL (0.8-4.8); LYMPHOCYTES % (AUTO) 23.5 % (20.0-44.0); MEAN CORPUSCULAR HGB CONC 33 g/dl (31.0-36.0); MEAN CORPUSCULAR VOLUME 96 fL (80-96); MONOCYTES # (AUTO) 0.6 K/uL (0.1-1.30); MONOCYTES % (AUTO) 4.1 % (2.0-12.0); NEUTROPHILS # (AUTO) 10.2 K/uL (1.8-8.9); NEUTROPHILS % (AUTO) 70.6 % (43.0-81.0); PLATELET COUNT (AUTO) 274 K/uL (150-450); RED BLOOD CELL COUNT(AUTO) 2.63 MIL/uL (4.5-6.0); WHITE BLOOD COUNT (AUTO) 14.4 K/uL (4.3-11.0)
[2021-11-05 07:19] LABS: CALCIUM, SERUM 9.3 mg/dL (8.5-10.1); CREATININE 2.9 mg/dL (0.6-1.3); MAGNESIUM 1.8 mg/dL (1.8-2.4); PHOSPHORUS 5.7 mg/dL (2.5-4.9); POTASSIUM 3.6 mmol/L (3.5-5.1)
--- NOTE | 2021-11-05 07:19 | NUR ---
MS RN NOTE NEEDS ATTENDED. NO SIGNIFICANT CHANGE WITH PATIENT. REPORT GIVEN TO ALBAN FOR CONTINUITY OF CARE.
--- NOTE | 2021-11-05 07:28 | NUR ---
ZIGZAG TOPSTITCHER OPENING NOTE RECEIVED PT ASLEEP IN BED. OPENS EYES AND OBTUNDED. ON [facility] VENT, BREATHING UNLABORED. NOT IN ANY SIGN OF RESPIRATORY DISTRESS. ON TELE MONITOR WITH CURRENT READING OF NORMAL SINUS RHYTHM, HR 67. NO COMPLAIN OF ANY CARDIAC DISCOMFORT OR DISTRESS AT THIS TIME. IV ACCESS IN EYAL ML INTACT AND PATENT WITH NS RUNNING AT 125ML/HR. PT'S GTUBE INTACT AND PATENT WITH FEEDING RUNNING AT 70ML/HR. JACOBSON CATH IN PLACE, DRAINING WELL WITH YELLOW COLOR URINE. SAFETY MEASURES IN PLACE: BED IN LOWEST AND LOCKED POSITION, SIDE RAILS UPX2, CALL LIGHT WITHIN REACH. WILL CONTINUE TO MONITOR PT AND WITH PLAN OF CARE. Addendum: 11/05/21 at 1913 by ALBAN GARCIA RN CORRECTION PT IS NOT ON JACOBSON, PT IS ON CONDOM CATH.
[2021-11-05] MEDS: PROSOURCE / PROSTAT (PYXIS) 30 ML UDC GT SCH (08:11)
[2021-11-05] MEDS: DOCUSATE SODIUM LIQ 100 MG/10 ML UDC GT SCH (08:12)
[2021-11-05] MEDS: LEVETIRACETAM SOL (5 ML) 100 MG/ML UDC GT SCH ×2 (08:12→21:06)
[2021-11-05] MEDS: CHLORHEXIDINE GLUCONATE 15 ML UDC MM SCH ×2 (08:12→21:07)
[2021-11-05] MEDS: PANTOPRAZOLE 40 MG/PACK PACK GT SCH (08:12)
[2021-11-05] MEDS: FERROUS SULFATE UDC 300 MG/5 ML UDC GT SCH (08:13)
[2021-11-05] MEDS: ZINC SULFATE 220 MG CAPSULE GT SCH (08:13)
[2021-11-05] MEDS: MULTIVITAMINS,THERAGRAN 1 UDTAB TABLET GT SCH (08:13)
[2021-11-05] MEDS: VALPROIC ACID 250 MG/5 ML UDC GT SCH ×3 (08:13→17:24)
[2021-11-05] MEDS: ARGININE/GLUTAMINE/CALCIUM BMB 1 EACH POWD.PACK GT SCH ×2 (08:19→17:24)
[2021-11-05] MEDS: COLISTIMETHATE SODIUM IV SCH ×2 (08:24→21:07)
[2021-11-05] MEDS: NS 0.9% IV SCH ×2 (08:24→21:07)
[2021-11-05] MEDS: THERAHONEY GEL 1.5 OZ TUBE TP SCH (08:25)
--- NOTE | 2021-11-05 08:30 | NUR ---
RN NOTE RECEIVED A CALL FROM [employer] SONIDO WITH CRITICAL LEVEL OF BUN OF [phone] ALE WATSON AWARE WITH NO NEW ORDER AT THIS TIME.
[2021-11-05] MEDS: LACOSAMIDE 50 MG TABLET PO SCH ×2 (08:34→21:07)
[2021-11-05 08:49] VITALS: BP 131/63
[2021-11-05] MEDS: GLUCERNA 1.2 1,000 ML BOTTLE NG PRN (10:49)
[2021-11-05 13:13] VITALS: BP 113/47
[2021-11-05 16:45] VITALS: BP 123/66
[2021-11-05] MEDS: ASCORBIC ACID 500 MG TABLET GT SCH (17:39)
--- NOTE | 2021-11-05 18:54 | NUR ---
POKER IN CLOSING NOTE PT ASLEEP IN BED. OPENS EYES AND OBTUNDED. ON [facility] VENT, BREATHING UNLABORED. NOT IN ANY SIGN OF RESPIRATORY DISTRESS. ON TELE MONITOR WITH CURRENT READING OF NORMAL SINUS RHYTHM, HR 77. NO SIGN OF ANY CARDIAC DISCOMFORT OR DISTRESS AT THIS TIME. IV ACCESS IN EYAL ML INTACT AND PATENT WITH NS RUNNING AT 125ML/HR. PT'S GTUBE INTACT AND PATENT WITH FEEDING RUNNING AT 70ML/HR. JACOBSON CATH IN PLACE, DRAINING WELL WITH YELLOW COLOR URINE. TURNED AND REPOSITIONED PT Q2HRS AND NEEDED. ALL NEEDS ATTENDED. SAFETY MEASURES IN PLACE: BED IN LOWEST AND LOCKED POSITION, SIDE RAILS UPX2, CALL LIGHT WITHIN REACH. WILL ENDORSED TO MACHINE LEATHER TRIMMER NURSE FOR CONTINUITY OF CARE. Addendum: 11/05/21 at 1914 by ALBAN GARCIA RN CORRECTION PT IS NOT ON JACOBSON, PT IS ON CONDOM CATH.
--- NOTE | 2021-11-05 19:35 | NUR ---
TEACHER OF THE VISUALLY IMPAIRED CLOSING NOTE RECEIVED PT RESTING IN BED, EASILY AROUSABLE. OPENS EYES AND OBTUNDED. ON [facility] VENT, TOLERATING WELL, O2 SAT 100%. NO SOB OR S/S OF RESPIRATORY DISTRESS. BREATHING EVEN AND UNLABORED. ON EXTERNAL WARD NURSE READING SR 77 BPM. IV ACCESS EYAL ML, INTACT AND PATENT, RUNNING NS @ 125 ML/HR. WITH GTUBE ,INTACT AND PATENT, RUNNING @ 75 ML/HR. CONDOM CATH IN PLACE, DRAINING CLEAR YELLOW URINE. SAFETY PRECAUTIONS IN PLACE. BED IN LOWEST LOCKED POSITION, HOB ELEVATED, SIDE RAILS UP X3, AND CALL LIGHT AND TABLE WITHIN REACH. ALL NEEDS MET AT THIS TIME. Addendum: 11/05/21 at 1942 by ALBAN NORRIS RN OPENING NOTE*
[2021-11-05 20:00] VITALS: BP 105/64
[2021-11-05 20:53] VITALS: BP 105/64
[2021-11-05] MEDS: SENNOSIDES 8.6 MG TABLET GT SCH (21:07)
[2021-11-06] VITALS (7 sets, daily range): BP systolic 110–156; BP diastolic 65–92
[2021-11-06] MEDS: BLOOD SUGAR DIAGNOSTIC 1 EACH STRIP IN SCH ×4 (00:39→17:35)
[2021-11-06] MEDS: METOPROLOL TARTRATE 50 MG TABLET GT SCH ×4 (00:40→17:33)
[2021-11-06] MEDS: SULFAMETHOXAZOLE/TRIMETHOPRIM 10 ML in IV D5W 250 ML IV SCH ×3 (00:40→16:42)
[2021-11-06] MEDS: DEXTROSE 50%-WATER 50 ML DISP.SYRIN IV PRN (05:23)
[2021-11-06] MEDS: BACLOFEN (10 MG) 10 MG TABLET GT SCH ×3 (05:23→21:03)
[2021-11-06] MEDS: AMPICILLIN 1 GM in IV NS 0.9% 50 ML IV SCH ×4 (05:23→23:59)
--- NOTE | 2021-11-06 05:23 | NUR ---
RN NOTE PT BS 60. ADMINISTERED D5W FOR HYPOGLYCEMIA ORDERED. WILL CHECK BLOOD SUGAR AGAIN IN 30 MIN. CHARGE NURSE JEZ AWARE.
--- NOTE | 2021-11-06 05:53 | NUR ---
RN NOTE PT BS 85 AFTER 30 MINUTES. CHARGE NURSE JEZ AWARE.
[2021-11-06] MEDS: MORPHINE SULFATE INJ 2 MG/ML DISP.SYRIN IV PRN (06:00)
--- NOTE | 2021-11-06 06:00 | NUR ---
RN NOTE PT IS DIAPHORETIC, TACHYCARDIC, AND BREATHING AGAINST THE VENT. ADMINISTERED MORPHINE 2 MG FOR SEVERE PAIN ORDERED. MADE COMFORTABLE IN BED. ALL NEEDS MET AT THIS TIME.
--- NOTE | 2021-11-06 06:47 | NUR ---
STILL RUNNER CLOSING NOTE PT RESTING IN BED, EASILY AROUSABLE. OPENS EYES AND OBTUNDED. ON [facility] VENT, TOLERATING WELL, O2 SAT 100%. NO SOB OR S/S OF RESPIRATORY DISTRESS. BREATHING EVEN AND UNLABORED. ON EXTERNAL BALLOON SANDER READING SR 93 BPM. IV ACCESS EYAL ML, INTACT AND PATENT, RUNNING NS @ 125 ML/HR. WITH GTUBE, INTACT AND PATENT, RUNNING @ 75 ML/HR. CONDOM CATH IN PLACE, DRAINING CLEAR YELLOW URINE, DRAINED 2200 ML THIS SHIFT. DUE MEDS GIVEN ORDERED. WOUND TX DONE ORDERED. SAFETY PRECAUTIONS IN PLACE AT ALL TIMES. BED IN LOWEST LOCKED POSITION, HOB ELEVATED, SIDE RAILS UP X3, AND CALL LIGHT AND TABLE WITHIN REACH. ALL NEEDS MET AT THIS TIME AND WILL ENDORSE TO ONCOMING SHIFT FOR JENNY.
[2021-11-06 07:29] LABS: BASOPHILS % (AUTO) 0.1 % (0.0-2.0); EOSINOPHILS % (AUTO) 1.3 % (0.0-6.0); HEMATOCRIT 27 % (39-51); HEMOGLOBIN 8.6 g/dL (13.5-17.5); LYMPHOCYTES # (AUTO) 1.4 K/uL (0.8-4.8); LYMPHOCYTES % (AUTO) 9.5 % (20.0-44.0); MEAN CORPUSCULAR HGB CONC 32 g/dl (31.0-36.0); MEAN CORPUSCULAR VOLUME 96 fL (80-96); MONOCYTES # (AUTO) 0.6 K/uL (0.1-1.30); MONOCYTES % (AUTO) 3.7 % (2.0-12.0); NEUTROPHILS # (AUTO) 12.7 K/uL (1.8-8.9); NEUTROPHILS % (AUTO) 85.4 % (43.0-81.0); PLATELET COUNT (AUTO) 300 K/uL (150-450); RED BLOOD CELL COUNT(AUTO) 2.78 MIL/uL (4.5-6.0); WHITE BLOOD COUNT (AUTO) 14.9 K/uL (4.3-11.0)
--- NOTE | 2021-11-06 07:30 | NUR ---
HORSE STUD MANAGER NOTES PT IN BED, AWAKE, RESPIRATIONS NORMAL AND NOT LABORED, NO SIGN OF PAIN OR DISTRESS, IV FLUIDS INFUSING WELL, GT FEEDING INFUSING WELL, HR AT 82 BPM, AFEBRILE, WILL CONTINUE TO MONITOR.
[2021-11-06 07:41] LABS: MAGNESIUM 1.5 mg/dL (1.8-2.4); PHOSPHORUS 3.8 mg/dL (2.5-4.9)
[2021-11-06] MEDS: ARGININE/GLUTAMINE/CALCIUM BMB 1 EACH POWD.PACK GT SCH ×2 (09:12→17:38)
[2021-11-06] MEDS: PROSOURCE / PROSTAT (PYXIS) 30 ML UDC GT SCH (09:12)
[2021-11-06] MEDS: DOCUSATE SODIUM LIQ 100 MG/10 ML UDC GT SCH (09:12)
[2021-11-06] MEDS: THERAHONEY GEL 1.5 OZ TUBE TP SCH (09:12)
[2021-11-06] MEDS: LEVETIRACETAM SOL (5 ML) 100 MG/ML UDC GT SCH ×2 (09:13→21:02)
[2021-11-06] MEDS: ZINC SULFATE 220 MG CAPSULE GT SCH (09:13)
[2021-11-06] MEDS: PANTOPRAZOLE 40 MG/PACK PACK GT SCH (09:13)
[2021-11-06] MEDS: CHLORHEXIDINE GLUCONATE 15 ML UDC MM SCH ×2 (09:13→21:02)
[2021-11-06] MEDS: FERROUS SULFATE UDC 300 MG/5 ML UDC GT SCH (09:13)
[2021-11-06] MEDS: VALPROIC ACID 250 MG/5 ML UDC GT SCH ×3 (09:13→17:35)
[2021-11-06] MEDS: LACOSAMIDE 50 MG TABLET PO SCH ×2 (09:14→21:02)
[2021-11-06] MEDS: MULTIVITAMINS,THERAGRAN 1 UDTAB TABLET GT SCH (09:14)
[2021-11-06] MEDS: NS 0.9% IV SCH ×2 (09:33→21:02)
[2021-11-06] MEDS: COLISTIMETHATE SODIUM IV SCH ×2 (09:33→21:02)
--- NOTE | 2021-11-06 10:34 | NUR ---
WOUND CARE CONSULT: PT SEEN FOR SKIN TEAR TO LEFT ABDOMEN. RECOMMENDATIONS MADE FOR SKIN PROTECTION AND WOUND CARE. DISCUSSED WITH SURGICAL P.A. CURRENTLY ON CASE AND WITH NURSING STAFF. MD IN AGREEMENT WITH PLAN OF CARE. PT NOTED TO HAVE UPPER EXTREMITY CONTRACTURES.
[2021-11-06] MEDS ORDERED: COLI150V12 IJ (11:09)
[2021-11-06] MEDS ORDERED: METO50TA16 GT (11:09)
[2021-11-06] MEDS ORDERED: LACO50TA2 PO (11:09)
[2021-11-06] MEDS ORDERED: LEVE100S GT (11:09)
[2021-11-06] MEDS ORDERED: VALP250S22 GT (11:09)
[2021-11-06] MEDS ORDERED: AMPI1VIA6 IJ (11:09)
[2021-11-06] MEDS ORDERED: SULF1TAB48 GT (11:09)
[2021-11-06] MEDS ORDERED: COLL30OI TP (11:09)
[2021-11-06] MEDS ORDERED: MAGNESIUM OXIDE 400 MG TABLET PO ONE (11:30)
[2021-11-06] MEDS: IV NS 0.9% 1,000 ML IV PRN (12:26)
[2021-11-06] MEDS: GLUCERNA 1.2 1,000 ML BOTTLE NG PRN (15:15)
[2021-11-06] MEDS: ASCORBIC ACID 500 MG TABLET GT SCH (17:35)
--- NOTE | 2021-11-06 18:43 | NUR ---
ROUGH ROUNDER MACHINE NOTES PT IN BED, AWAKE, NON VERBAL, NO SIGN OF PAIN OR DISTRESS, PM MEDS GIVEN ORDERED, PM CARE PROVIDED, GT FEEDING AND IV FLUIDS INFUSING WELL, REPOSITIONED FOR COMFORT, KEPT WARM AND COMFORTABLE IN BED, SEEN AND EXAMINED BY DR. WATSON, DISCHARGE ORDER GIVEN, AWAITING SNF PLACEMENT PER ROTARY FILTER OPERATOR.
--- NOTE | 2021-11-06 19:30 | NUR ---
GRAIN ELEVATOR SUPERINTENDENT OPENING NOTE RECEIVED PT RESTING IN BED, EASILY AROUSABLE. OPENS EYES AND OBTUNDED. [facility], TOLERATING WELL, O2 SAT 100%. NO SOB OR S/S OF RESPIRATORY DISTRESS. BREATHING EVEN AND UNLABORED. ON EXTERNAL COSTUMED CHARACTER ENTERTAINER READING SR 86 BPM. IV ACCESS EYAL ML, INTACT AND PATENT, RUNNING NS @ 125 ML/HR. WITH GTUBE ,INTACT AND PATENT, RUNNING @ 75 ML/HR. CONDOM CATH IN PLACE, DRAINING CLEAR YELLOW URINE. SAFETY PRECAUTIONS IN PLACE. BED IN LOWEST LOCKED POSITION, HOB ELEVATED, SIDE RAILS UP X3, AND CALL LIGHT AND TABLE WITHIN REACH. ALL NEEDS MET AT THIS TIME.
[2021-11-06] MEDS: SENNOSIDES 8.6 MG TABLET GT SCH (21:01)
[2021-11-07] MEDS: METOPROLOL TARTRATE 50 MG TABLET GT SCH ×4 (00:24→17:38)
[2021-11-07] MEDS: SULFAMETHOXAZOLE/TRIMETHOPRIM 10 ML in IV D5W 250 ML IV SCH ×3 (00:24→17:34)
[2021-11-07] MEDS: BLOOD SUGAR DIAGNOSTIC 1 EACH STRIP IN SCH ×4 (00:37→18:01)
[2021-11-07] MEDS: AMPICILLIN 1 GM in IV NS 0.9% 50 ML IV SCH ×4 (05:18→23:31)
[2021-11-07] MEDS: BACLOFEN (10 MG) 10 MG TABLET GT SCH ×3 (05:18→21:39)
[2021-11-07] MEDS: IV NS 0.9% 1,000 ML IV PRN (06:14)
--- NOTE | 2021-11-07 06:42 | NUR ---
MUCKER OPERATOR CLOSING NOTE PT RESTING IN BED, EASILY AROUSABLE. OPENS EYES AND OBTUNDED. ON [facility] VENT, TOLERATING WELL, O2 SAT 100%. NO SOB OR S/S OF RESPIRATORY DISTRESS. BREATHING EVEN AND UNLABORED. ON EXTERNAL FUR TRIMMER READING SR 65 BPM. IV ACCESS EYAL ML, INTACT AND PATENT, RUNNING NS @ 125 ML/HR. WITH GTUBE, INTACT AND PATENT, RUNNING @ 75 ML/HR. CONDOM CATH IN PLACE, DRAINING CLEAR YELLOW URINE, DRAINED 1900 ML THIS SHIFT. DUE MEDS GIVEN ORDERED. WOUND TX DONE ORDERED. SAFETY PRECAUTIONS IN PLACE AT ALL TIMES. BED IN LOWEST LOCKED POSITION, HOB ELEVATED, SIDE RAILS UP X3, AND CALL LIGHT AND TABLE WITHIN REACH. ALL NEEDS MET AT THIS TIME AND WILL ENDORSE TO ONCOMING SHIFT FOR JENNY.
--- NOTE | 2021-11-07 07:48 | NUR ---
RN OPENING NOTES Patient seen comfortably lying in bed, no shortness of breath, no apparent distress noted, breathing even and unlabored, no grimacing. Call light left within reach, safety precautions in place, brakes locked, side rails up X 2.
[2021-11-07 08:00] VITALS: BP 115/66
[2021-11-07] MEDS: FERROUS SULFATE UDC 300 MG/5 ML UDC GT SCH (09:10)
[2021-11-07] MEDS: VALPROIC ACID 250 MG/5 ML UDC GT SCH ×3 (09:10→17:37)
[2021-11-07] MEDS: DOCUSATE SODIUM LIQ 100 MG/10 ML UDC GT SCH (09:10)
[2021-11-07] MEDS: LACOSAMIDE 50 MG TABLET PO SCH ×2 (09:10→21:39)
[2021-11-07] MEDS: MULTIVITAMINS,THERAGRAN 1 UDTAB TABLET GT SCH (09:10)
[2021-11-07] MEDS: LEVETIRACETAM SOL (5 ML) 100 MG/ML UDC GT SCH ×2 (09:10→21:38)
[2021-11-07] MEDS: CHLORHEXIDINE GLUCONATE 15 ML UDC MM SCH ×2 (09:10→21:39)
[2021-11-07] MEDS: PANTOPRAZOLE 40 MG/PACK PACK GT SCH (09:10)
[2021-11-07] MEDS: ZINC SULFATE 220 MG CAPSULE GT SCH (09:10)
[2021-11-07] MEDS: ARGININE/GLUTAMINE/CALCIUM BMB 1 EACH POWD.PACK GT SCH ×2 (09:11→17:35)
[2021-11-07] MEDS: PROSOURCE / PROSTAT (PYXIS) 30 ML UDC GT SCH (09:11)
[2021-11-07] MEDS: COLISTIMETHATE SODIUM IV SCH ×2 (11:11→21:26)
[2021-11-07] MEDS: NS 0.9% IV SCH ×2 (11:11→21:26)
[2021-11-07] MEDS: MORPHINE SULFATE INJ 2 MG/ML DISP.SYRIN IV PRN (15:19)
[2021-11-07 16:00] VITALS: BP 116/72
[2021-11-07] MEDS: ASCORBIC ACID 500 MG TABLET GT SCH (17:37)
--- NOTE | 2021-11-07 18:32 | NUR ---
RN CLOSING NOTES Patient lying in bed, respirations even and unlabored, no shortness of breath, remained afebrile during shift, no apparent distress noted. All due medications given via gtube per MD order, tolerating well. Gtube remained patent, intact, and in place, placement verified with auscultation and gastric residual. No s/s of hypo/hyperglycemia, no tremors, no change in level of consciousness. Patient has ongoing gtube feeding (Glucerna 1.2 @ 75m/hr), tolerating well, no nausea, no vomiting, no diarrhea noted at this time, abdomen non distended, abdominal bowel sound present in all quadrants. Patient has orders for IV antibiotics and IV fluids for hydration (NS @ 125ml/hr), IV midline on right upper arm, patent, intact and flushing well, covered with dry and clean dressings, no s/s of infiltration at site, no swelling, no redness. Mazariegos catheter draining clear yellowish urine free from any sediments, no hematuria, and no unusual odor noted in urine, no grimacing when bladder palpated, bladder non distended during shift. All needs anticipated, kept clean and dry, safety precautions in place, brakes locked, side rails up X 2, call light left within reach.
[2021-11-07] MEDS: THERAHONEY GEL 1.5 OZ TUBE TP SCH (19:03)
--- NOTE | 2021-11-07 19:46 | NUR ---
CUSTOMER ENGINEER OPENING NOTES: RECEIVED PATIENT AWAKE IN BED, OBTUNDED OPEN EYES, HOB AT 45 DEGREE ON MECHANICAL VENT SATURATING WELL, NO SOB WAS OBSERVED, ON G TUBE FEEDING OF GLUCERNA A 1.2@75ML/HR INFUSING WELL, WITH IV LINE AT EYAL ML WITH ONGOING NSS@125ML/HR, PATIENT ON CONDOM CATHETER PATIENT KEPT CLEAN AND DRY ALL NEEDS MET WILL CONTINUE TO MONITOR.
[2021-11-07 20:00] VITALS: BP 97/62
[2021-11-07] MEDS: SENNOSIDES 8.6 MG TABLET GT SCH (21:39)
[2021-11-08] VITALS: BP 111/60
[2021-11-08] MEDS: SULFAMETHOXAZOLE/TRIMETHOPRIM 10 ML in IV D5W 250 ML IV SCH ×3 (00:20→16:41)
--- NOTE | 2021-11-08 00:34 | NUR ---
RN NOTES: BP-104/52 P-77 BP MEDICATION NOTE GIVEN FOR 12MN
--- NOTE | 2021-11-08 00:45 | NUR ---
RN NOTES: BLOOD SUGAR -83/ NO INSULIN GIVEN, PER SLIDING SCALE, OUT OF PARAMETER
[2021-11-08] MEDS: IV NS 0.9% 1,000 ML IV PRN ×2 (03:47→21:11)
[2021-11-08 04:00] VITALS: BP 103/48
[2021-11-08] MEDS: AMPICILLIN 1 GM in IV NS 0.9% 50 ML IV SCH ×4 (05:33→23:52)
[2021-11-08] MEDS: BACLOFEN (10 MG) 10 MG TABLET GT SCH ×3 (05:45→21:21)
[2021-11-08] MEDS: DEXTROSE 50%-WATER 50 ML DISP.SYRIN IV PRN ×2 (05:56→19:30)
[2021-11-08] MEDS: BLOOD SUGAR DIAGNOSTIC 1 EACH STRIP IN SCH ×4 (06:00→18:00)
[2021-11-08] MEDS: METOPROLOL TARTRATE 50 MG TABLET GT SCH ×4 (06:00→17:53)
--- NOTE | 2021-11-08 06:30 | NUR ---
RN NOTES: BS-53 DEXTROSE 50% GIVEN BY IV PUSH WILL CONTINUE TO MONITOR.
--- NOTE | 2021-11-08 06:58 | NUR ---
RN NOTES: PATIENT WAS GIVEN DEXTROSE 50% IV PUSH FOR BS-53 ASSESSMENT DONE AFTER 30 MIN BLOOD SUGAR CHECK WAS 80 WILL CONTINUE TO MONITOR.
--- NOTE | 2021-11-08 06:59 | NUR ---
MS RN CLOSING NOTES: PATIENT SLEEP IN BED COMFORTABLY, BED IN LOW POSITION, CALL LIGHTS WITHIN REACH, NO COMPLAIN OF PAIN AND DISCOMFORT AT THIS TIME, ON G TUBE FEEDING OGF GLUCERNA 1.2@75ML PER HOUR INFUSING WELL, WITH IV LINE AT EYAL ML WITH ONGOING NSS@125ML PER HOUR INFUSING WELL, ON CONDOM CATHETER WITH 1900 URINE OUTPUT, ON MECHNICAL VENT SATURATING AT 100% PATIENT KEPT CLEAN AND DRY HOB AT 45 DEGREE AT ALL TIMES, ALL NEEDS MET ENDORSE TO INCOMING SHIFT.
--- NOTE | 2021-11-08 07:30 | NUR ---
MS RN OPENING NOTES PATIENT IN BED OBTUNDED. TOLERATING VENT SETTINGS WELL AT THIS TIME. NO S/SX OF RESP DISTRESS NOTED. TELE MONITOR SHOWS SR BPM 78 AT THIS TIME. G-TUBE FEEDING GLUCERNA 1.2 RUNNING @75M/HR. EYAL ML WITH ONGOING NS @ 125ML/HR. JACOBSON CATH IN PLACE WITH YELLOW URINE DRAINING. SAFETY AND ASPIRATION PRECAUTIONS IN PLACE. WILL CONTINUE TO MONITOR
[2021-11-08 08:00] VITALS: BP 101/59
[2021-11-08 09:07] LABS: BASOPHILS % (AUTO) 0.1 % (0.0-2.0); EOSINOPHILS % (AUTO) 0.8 % (0.0-6.0); HEMATOCRIT 28 % (39-51); LYMPHOCYTES # (AUTO) 2.8 K/uL (0.8-4.8); LYMPHOCYTES % (AUTO) 16.9 % (20.0-44.0); MEAN CORPUSCULAR HGB CONC 33 g/dl (31.0-36.0); MEAN CORPUSCULAR VOLUME 96 fL (80-96); MONOCYTES # (AUTO) 0.5 K/uL (0.1-1.30); NEUTROPHILS # (AUTO) 13.4 K/uL (1.8-8.9); NEUTROPHILS % (AUTO) 79.2 % (43.0-81.0); PLATELET COUNT (AUTO) 298 K/uL (150-450); RED BLOOD CELL COUNT(AUTO) 2.91 MIL/uL (4.5-6.0); WHITE BLOOD COUNT (AUTO) 16.9 K/uL (4.3-11.0)
[2021-11-08 09:21] LABS: CALCIUM, SERUM 9.6 mg/dL (8.5-10.1); CREATININE 2.1 mg/dL (0.6-1.3); MAGNESIUM 1.4 mg/dL (1.8-2.4); PHOSPHORUS 4.6 mg/dL (2.5-4.9); POTASSIUM 4.5 mmol/L (3.5-5.1)
[2021-11-08] MEDS: THERAHONEY GEL 1.5 OZ TUBE TP SCH (09:41)
[2021-11-08] MEDS: CHLORHEXIDINE GLUCONATE 15 ML UDC MM SCH ×2 (09:46→21:21)
[2021-11-08] MEDS: PANTOPRAZOLE 40 MG/PACK PACK GT SCH (09:46)
[2021-11-08] MEDS: DOCUSATE SODIUM LIQ 100 MG/10 ML UDC GT SCH (09:46)
[2021-11-08] MEDS: LACOSAMIDE 50 MG TABLET PO SCH ×2 (09:46→21:21)
[2021-11-08] MEDS: FERROUS SULFATE UDC 300 MG/5 ML UDC GT SCH (09:46)
[2021-11-08] MEDS: ZINC SULFATE 220 MG CAPSULE GT SCH (09:46)
[2021-11-08] MEDS: MULTIVITAMINS,THERAGRAN 1 UDTAB TABLET GT SCH (09:46)
[2021-11-08] MEDS: VALPROIC ACID 250 MG/5 ML UDC GT SCH ×3 (09:47→17:53)
[2021-11-08] MEDS: LEVETIRACETAM SOL (5 ML) 100 MG/ML UDC GT SCH ×2 (09:47→21:21)
[2021-11-08] MEDS: ARGININE/GLUTAMINE/CALCIUM BMB 1 EACH POWD.PACK GT SCH ×2 (09:49→17:54)
[2021-11-08] MEDS: PROSOURCE / PROSTAT (PYXIS) 30 ML UDC GT SCH (09:49)
[2021-11-08] MEDS: COLISTIMETHATE SODIUM IV SCH ×2 (10:33→21:20)
[2021-11-08] MEDS: NS 0.9% IV SCH ×2 (10:33→21:20)
[2021-11-08 16:05] VITALS: BP 102/73
--- NOTE | 2021-11-08 17:24 | NUR ---
RECEIVED PATIENT ON VENT SETTINGS OF AC 16, VT 450, FIO2 40%, PEEP 5. HAS A TRACH SHILEY 8 XLT CUFFED. AIRWAY PATENT AND SECURE. SATURATIONS AT 100%. Q2 VENT CHECK, SUCTION PRN. MODERATE, THICK, YELLOW SECRETIONS NOTED. AMBU BAG AT BEDSIDE. VENT PLUGGED INTO RED OUTLET. ALARMS SET AND AUDIBLE.
[2021-11-08] MEDS: ASCORBIC ACID 500 MG TABLET GT SCH (17:53)
[2021-11-08] MEDS: LORAZEPAM INJ 2 MG/ML VIAL IV PRN (18:02)
--- NOTE | 2021-11-08 19:42 | NUR ---
RN NOTES ENDORSED REPORT TO THE METAL SPRAYER MACHINED PARTS NURSE
[2021-11-08 20:00] VITALS: BP 105/58
--- NOTE | 2021-11-08 20:13 | NUR ---
LICENSE AND PERMIT SPECIALIST OPENING NOTES: RECEIVED PATIENT AWAKE IN BED EYE OPENS PATIENT IS OBTUNDED, ON MECH VENT SATURATING WELL AT 100%,HOB AT 45 DEGREE AT ALL TIMES, PATIENT ON G TUBE FEEDING OF GLUCERNA 1.2 @75ML /HR INFUSING WELL, WITH IV LINE AT EYAL ML WITH ONGOING NSS@125ML/HR INFUSING WELL, PATIENT ON CONDOM CATHETER, WITH 50CC URINE OUTPUT, PATIENT KEPT CLEAN AND DRY ALL NEEDS MET WILL CONTINUE TO MONITOR.
--- NOTE | 2021-11-08 20:27 | NUR ---
RN NOTES: BLOOD SUGAR -76 PATIENT WAS GIVEN D 5050 FOR BLOOD SUGAR-60 REASSESSEMENT DONE, PATIENT IS AROUSABLE OPENS EYE,BS-76 WILL CONTINUE TO MONITOR.
[2021-11-08] MEDS: SENNOSIDES 8.6 MG TABLET GT SCH (21:21)
[2021-11-08] MEDS: ACETAMINOPHEN 650 MG/20.3 ML UDC PEG PRN (22:05)
[2021-11-09] VITALS: BP 157/75
[2021-11-09] MEDS: SULFAMETHOXAZOLE/TRIMETHOPRIM 10 ML in IV D5W 250 ML IV SCH ×3 (00:25→15:58)
[2021-11-09] MEDS: METOPROLOL TARTRATE 50 MG TABLET GT SCH ×4 (00:25→17:23)
--- NOTE | 2021-11-09 00:52 | NUR ---
RN NOTES: BS-100- NO INSULIN GIVEN OUT OF PARAMETER
[2021-11-09] MEDS: LORAZEPAM INJ 2 MG/ML VIAL IV PRN (01:06)
[2021-11-09 04:00] VITALS: BP 128/71
[2021-11-09] MEDS: BACLOFEN (10 MG) 10 MG TABLET GT SCH ×3 (05:17→21:03)
[2021-11-09] MEDS: AMPICILLIN 1 GM in IV NS 0.9% 50 ML IV SCH ×4 (05:17→23:33)
[2021-11-09] MEDS: BLOOD SUGAR DIAGNOSTIC 1 EACH STRIP IN SCH ×4 (06:00→17:18)
--- NOTE | 2021-11-09 06:32 | NUR ---
rn notes: bs-72 no insulin given per sliding scale
--- NOTE | 2021-11-09 06:44 | NUR ---
DISTRIBUTOR PUBLICATIONS CLOSING NOTES: PATIENT SLEEP IN BED COMFORTABLY, AROUSABLE TO TACTILE STIMULI, BED IN LOW POSITION, HOB AT 45 DEGREE AT ALL TIME, PATIENT ON MECHANICAL VENT SATURATING WELL, NPO ON G TUBE FEEDING OF GLUCERNA 1.2@75 ML PER HOUR, WITH IV LINE AT EYAL ML WITH ONGOING NSS@125ML/HR INFUSING WELL, PATIENT ON TELE MONITORING SR-70,- ON CONDOM CATHETER WITH URINE OUTPUT-1400CC, PATIENT KEPT CLEAN AND DRY ALL NEEDS MET ENDORSE TO INCOMING SHIFT.
--- NOTE | 2021-11-09 07:37 | NUR ---
PRACTICE CONSULTANT OPENING NOTE Patient in bed, obtunded but opens eyes. On mechanical ventilator with the following settings: Shiley 8 XLT; TV 400; AC 16; FiO2 40%; PEEP 5. Tolerating current settings well. IV access on EYAL midline infusing NS at 125 ml/hr. On tele monitoring showing SR, HR 76. Condom catheter in place draining to a yellow colored urine. Safety precautions in place: bed in low, locked position; sideails up x 2; call light within reach. Will continue to monitor. Addendum: 11/09/21 at 1631 by SHANICE DASH RN CORRECTION: TV 450
[2021-11-09 08:00] VITALS: BP 103/54
[2021-11-09 08:44] LABS: BASOPHILS % (AUTO) 0.1 % (0.0-2.0); EOSINOPHILS % (AUTO) 0.7 % (0.0-6.0); HEMATOCRIT 28 % (39-51); HEMOGLOBIN 9.2 g/dL (13.5-17.5); LYMPHOCYTES # (AUTO) 2.5 K/uL (0.8-4.8); LYMPHOCYTES % (AUTO) 19.7 % (20.0-44.0); MEAN CORPUSCULAR HGB CONC 33 g/dl (31.0-36.0); MEAN CORPUSCULAR VOLUME 96 fL (80-96); MONOCYTES # (AUTO) 0.6 K/uL (0.1-1.30); MONOCYTES % (AUTO) 4.8 % (2.0-12.0); NEUTROPHILS # (AUTO) 9.5 K/uL (1.8-8.9); NEUTROPHILS % (AUTO) 74.7 % (43.0-81.0); PLATELET COUNT (AUTO) 237 K/uL (150-450); RED BLOOD CELL COUNT(AUTO) 2.96 MIL/uL (4.5-6.0); WHITE BLOOD COUNT (AUTO) 12.7 K/uL (4.3-11.0)
[2021-11-09 08:52] LABS: CALCIUM, SERUM 9.6 mg/dL (8.5-10.1); CREATININE 2.4 mg/dL (0.6-1.3); MAGNESIUM 1.6 mg/dL (1.8-2.4); PHOSPHORUS 5.5 mg/dL (2.5-4.9); POTASSIUM 3.7 mmol/L (3.5-5.1)
[2021-11-09] MEDS: PROSOURCE / PROSTAT (PYXIS) 30 ML UDC GT SCH (09:37)
[2021-11-09] MEDS: ARGININE/GLUTAMINE/CALCIUM BMB 1 EACH POWD.PACK GT SCH ×2 (09:37→17:16)
[2021-11-09] MEDS: PANTOPRAZOLE 40 MG/PACK PACK GT SCH (09:38)
[2021-11-09] MEDS: CHLORHEXIDINE GLUCONATE 15 ML UDC MM SCH ×2 (09:38→21:03)
[2021-11-09] MEDS: FERROUS SULFATE UDC 300 MG/5 ML UDC GT SCH (09:38)
[2021-11-09] MEDS: MULTIVITAMINS,THERAGRAN 1 UDTAB TABLET GT SCH (09:38)
[2021-11-09] MEDS: ZINC SULFATE 220 MG CAPSULE GT SCH (09:38)
[2021-11-09] MEDS: LEVETIRACETAM SOL (5 ML) 100 MG/ML UDC GT SCH ×2 (09:38→21:08)
[2021-11-09] MEDS: VALPROIC ACID 250 MG/5 ML UDC GT SCH ×3 (09:38→17:16)
[2021-11-09] MEDS: DOCUSATE SODIUM LIQ 100 MG/10 ML UDC GT SCH (09:38)
[2021-11-09] MEDS: LACOSAMIDE 50 MG TABLET PO SCH ×2 (09:38→21:03)
[2021-11-09] MEDS: THERAHONEY GEL 1.5 OZ TUBE TP SCH (09:39)
[2021-11-09] MEDS: NS 0.9% IV SCH ×2 (10:44→21:04)
[2021-11-09] MEDS: COLISTIMETHATE SODIUM IV SCH ×2 (10:44→21:04)
[2021-11-09] MEDS: IV NS 0.9% 1,000 ML IV PRN (10:45)
--- NOTE | 2021-11-09 12:13 | NUR ---
RN NOTE Patient's blood glucose is 77, no Insulin needed per sliding scale.
[2021-11-09] MEDS: GLUCERNA 1.2 1,000 ML BOTTLE NG PRN (13:18)
[2021-11-09 16:00] VITALS: BP 125/44
[2021-11-09] MEDS: ASCORBIC ACID 500 MG TABLET GT SCH (17:16)
--- NOTE | 2021-11-09 17:30 | NUR ---
RN NOTE Patient's blood glucose is 79, no Insulin coverage per sliding scale.
--- NOTE | 2021-11-09 18:34 | NUR ---
RN NOTE Open wound noted on patient's Left ear. Kept clean and dry, protective measures placed. Photo taken and placed in chart. Wound care consult ordered.
--- NOTE | 2021-11-09 19:23 | NUR ---
ELECTROMATIC TYPIST CLOSING NOTE Patient in bed, obtunded but opens eyes. On mechanical ventilator with the following settings: Shiley 8 XLT; TV 450; AC 16; FiO2 40%; PEEP 5. Tolerating current settings well. IV access on EYAL midline infusing NS at 125 ml/hr. On tele monitoring showing SR, HR 84. Condom catheter in place draining to a yellow colored urine with an output of 2750 cc. Due meds given. Patient kept clean and dry. Wound care done, as ordered. Safety precautions maintained: bed in low, locked position; sideails up x 2; call light within reach. Will endorse to housing property manager nurse for JENNY.
--- NOTE | 2021-11-09 19:35 | NUR ---
LECTURER OF PORTUGUESE OPENING NOTES RECEIVED PATIENT IN BED; OBTUNDED, OPENS EYES. ON MECHANICAL VENTILATOR; SETTINGS FOLLOWS: AC 16, TV 450, FiO2 40%, PEEP 5; HAS A TRACH SHILEY 8 XLT CUFFED, SATURATIONS AT 100%; TOLERATING CURRENT SETTINGS WELL. ON TELEMETRY MONITORING WITH READING OF SINUS RHYTHM HR 86 BPM. WITH IV ACCESS ON RIGHT UPPER ARM MIDLINE INFUSING WITH NS 1L REGULATED AT 125ML/HR; PATENT AND INTACT. WITH G-TUBE FEEDING OF GLUCERNA 1.2 REGULATED AT 75ML/HR, PATENT, INTACT AND FLUSHES WELL. WITH CONDOM CATHETER ATTACHED TO UROBAG DRAINING TO YELLOW COLORED URINE. NEEDS ATTENDED. SAFETY PRECAUTIONS IMPLEMENTED: HEAD OF BED ELEVATED TO 30%, CALL BUTTON AND TABLE WITHIN EASY REACH, SIDE RAILS UP X2, BED IN LOWEST LOCKED POSITION. WILL CONTINUE PLAN OF CARE.
[2021-11-09 19:58] VITALS: BP 116/89
[2021-11-09 19:59] VITALS: BP 116/59
[2021-11-09] MEDS: SENNOSIDES 8.6 MG TABLET GT SCH (21:13)
[2021-11-10] VITALS (9 sets, daily range): BP systolic 91–141; BP diastolic 50–86
--- NOTE | 2021-11-10 00:55 | NUR ---
BLOOD SUGAR CHECKED WITH RESULT OF 91 mg/dL; NO INSULIN COVERAGE GIVEN.
[2021-11-10] MEDS: BLOOD SUGAR DIAGNOSTIC 1 EACH STRIP IN SCH ×4 (00:57→17:25)
[2021-11-10] MEDS: METOPROLOL TARTRATE 50 MG TABLET GT SCH ×4 (01:03→17:41)
[2021-11-10] MEDS: SULFAMETHOXAZOLE/TRIMETHOPRIM 10 ML in IV D5W 250 ML IV SCH ×3 (01:03→15:58)
[2021-11-10] MEDS: IV NS 0.9% 1,000 ML IV PRN (01:07)
[2021-11-10] MEDS: BACLOFEN (10 MG) 10 MG TABLET GT SCH ×3 (05:22→20:54)
[2021-11-10] MEDS: GLUCERNA 1.2 1,000 ML BOTTLE NG PRN (05:29)
--- NOTE | 2021-11-10 05:50 | NUR ---
UTILITY BILL COLLECTOR NOTES BLOOD SUGAR CHECKED WITH RESULT OF 64 MG/DL; NO INSULIN COVERAGE GIVEN.
[2021-11-10] MEDS: AMPICILLIN 1 GM in IV NS 0.9% 50 ML IV SCH ×3 (06:29→17:45)
--- NOTE | 2021-11-10 07:00 | NUR ---
GEOPHYSICAL PARTY CHIEF OPENING NOTES RECEIVED PATIENT IN BED; OBTUNDED, OPENS EYES. ON MECHANICAL VENTILATOR; SETTINGS FOLLOWS: AC 16, TV 450, FiO2 40%, PEEP 5; HAS A TRACH SHILEY 8 XLT CUFFED, SATURATIONS AT 100%; TOLERATING CURRENT SETTINGS WELL. ON TELEMETRY MONITORING WITH READING OF SINUS RHYTHM HR 82 BPM. WITH IV ACCESS ON RIGHT UPPER ARM MIDLINE INFUSING WITH NS AT 125ML/HR; PATENT AND INTACT. WITH G-TUBE FEEDING OF GLUCERNA 1.2 AT 75ML/HR, PATENT, INTACT AND FLUSHES WELL. WITH CONDOM CATHETER DRAINING CLEAR YELLOW URINE TO GRAVITY. SAFETY PRECAUTIONS IN PLACE: BED IN LOWEST LOCKED POSITION, SIDE RAILS UP X 2, CALL LIGHT WITHIN REACH. WILL CONTINUE TO MONITOR.
--- NOTE | 2021-11-10 07:15 | NUR ---
EEG TECH CLOSING NOTES: PATIENT IS SLEEPING COMFORTABLY IN BED AROUSABLE TO TACTILE STIMULI. BED IN LOWEST LOCKED POSITION. HOB AT 45 DEGREES. ON MECHANICAL VENT SATURATING WELL. ON G TUBE FEEDING OF GLUCERNA 1.2 REGULATED @75 ML PER HOUR. WITH IV ACCESS LINE AT EYAL MIDLINE INFUSING WITH NS REGULATED AT 125ML/HR. KEPT CLEAN AND DRY. NEEDS ATTENDED. ENDORSE TO MORNING SHIFT FOR JENNY.
--- NOTE | 2021-11-10 07:46 | NUR ---
WOUND CARE CONSULT: PT SEEN FOR ABRASIONS TO LEFT EAR. RECOMMENDATIONS MADE FOR SKIN PROTECTION AND WOUND CARE DISCUSSED WITH NURSING STAFF AND SURGICAL P.A. CURRENTLY ON CASE. MD IN AGREEMENT WITH PLAN OF CARE.
[2021-11-10] MEDS: LEVETIRACETAM SOL (5 ML) 100 MG/ML UDC GT SCH ×2 (08:31→20:54)
[2021-11-10] MEDS: LACOSAMIDE 50 MG TABLET PO SCH ×2 (08:31→20:53)
[2021-11-10] MEDS: VALPROIC ACID 250 MG/5 ML UDC GT SCH ×3 (08:32→16:07)
[2021-11-10] MEDS: PANTOPRAZOLE 40 MG/PACK PACK GT SCH (08:32)
[2021-11-10] MEDS: ZINC SULFATE 220 MG CAPSULE GT SCH (08:32)
[2021-11-10] MEDS: CHLORHEXIDINE GLUCONATE 15 ML UDC MM SCH ×2 (08:32→20:53)
[2021-11-10] MEDS: DOCUSATE SODIUM LIQ 100 MG/10 ML UDC GT SCH (08:32)
[2021-11-10] MEDS: FERROUS SULFATE UDC 300 MG/5 ML UDC GT SCH (08:32)
[2021-11-10] MEDS: THERAHONEY GEL 1.5 OZ TUBE TP SCH (08:33)
[2021-11-10] MEDS: ARGININE/GLUTAMINE/CALCIUM BMB 1 EACH POWD.PACK GT SCH ×2 (09:06→16:07)
[2021-11-10] MEDS: PROSOURCE / PROSTAT (PYXIS) 30 ML UDC GT SCH (09:07)
[2021-11-10] MEDS: NEOMY SULF/BACITRAC ZN/POLY 15 GM TUBE TP SCH (09:07)
[2021-11-10] MEDS: MULTIVITAMINS,THERAGRAN 1 UDTAB TABLET GT SCH (09:11)
[2021-11-10] MEDS: COLISTIMETHATE SODIUM IV SCH ×2 (09:37→20:56)
[2021-11-10] MEDS: NS 0.9% IV SCH ×2 (09:37→20:56)
[2021-11-10 11:07] LABS: BASOPHILS % (AUTO) 0.1 % (0.0-2.0); EOSINOPHILS % (AUTO) 0.6 % (0.0-6.0); HEMATOCRIT 26 % (39-51); HEMOGLOBIN 8.4 g/dL (13.5-17.5); LYMPHOCYTES # (AUTO) 2.1 K/uL (0.8-4.8); LYMPHOCYTES % (AUTO) 16.5 % (20.0-44.0); MEAN CORPUSCULAR HGB CONC 33 g/dl (31.0-36.0); MEAN CORPUSCULAR VOLUME 96 fL (80-96); MONOCYTES # (AUTO) 0.6 K/uL (0.1-1.30); MONOCYTES % (AUTO) 5.1 % (2.0-12.0); NEUTROPHILS # (AUTO) 9.7 K/uL (1.8-8.9); NEUTROPHILS % (AUTO) 77.7 % (43.0-81.0); PLATELET COUNT (AUTO) 186 K/uL (150-450); RED BLOOD CELL COUNT(AUTO) 2.67 MIL/uL (4.5-6.0); WHITE BLOOD COUNT (AUTO) 12.5 K/uL (4.3-11.0)
[2021-11-10 11:32] LABS: CALCIUM, SERUM 8.9 mg/dL (8.5-10.1); CREATININE 2.3 mg/dL (0.6-1.3); MAGNESIUM 1.4 mg/dL (1.8-2.4); POTASSIUM 3.6 mmol/L (3.5-5.1)
[2021-11-10] MEDS: LORAZEPAM INJ 2 MG/ML VIAL IV PRN (12:56)
--- NOTE | 2021-11-10 13:01 | NUR ---
MECHANIC FIELD SERVICE NOTES PATIENT NOTED WITH TACHYCARDIA AND AGITATION. PRN ATIVAN 1 MG IVP ADMINISTERED ORDERED. WILL CONTINUE TO MONITOR FOR S/S AGITATION.
[2021-11-10] MEDS: ASCORBIC ACID 500 MG TABLET GT SCH (17:45)
--- NOTE | 2021-11-10 19:00 | NUR ---
MECHANICAL DESIGN DRAFTER CLOSING NOTES PATIENT LAYING IN BED, A/O X 1, OBTUNDED. ON MECHANICAL VENT WITH SHILEY 8 XLT AND THE FOLLOWING SETTINGS: FI02 40%, PEEP 5, TV 450. TELE MONITOR READING SINUS TACHY 116. G-TUBE IN PLACE WITH GLUCERNA 1.2 RUNNING AT 75 ML/HR. EYAL MIDLINE CLEAN, INTACT, AND FLUSHING WELL WITH NS @ 125 ML/HR. ALL NEEDS MET. HOB AT 45 DEGREES. SAFETY MEASURES IN PLACE: BED IN LOWEST LOCKED POSITION, SIDE RAILS UP X 3, CALL LIGHT WITHIN REACH. WILL ENDORSE TO ORTHOTIC FINISH GRINDING TECHNICIAN FOR JENNY.
--- NOTE | 2021-11-10 19:20 | NUR ---
STEEL MELTER OPENING NOTES RECEIVED PATIENT IN BED; A/O X1, OPENS EYES, OBTUNDED. ON MECHANICAL VENTILATOR WITH SETTINGS: AC 16, TV 450, FiO2 40%, PEEP 5; WITH TRACH; SHILEY 8 XLT CUFFED, SATURATIONS AT 100%; TOLERATING CURRENT SETTINGS WELL. WITH IV ACCESS ON RIGHT UPPER ARM MIDLINE INFUSING WITH NS 1L REGULATED AT 125ML/HR; PATENT, INTACT AND FLUSHES WELL. ON TELEMETRY MONITORING WITH READING OF SINUS TACHYCARDIA 130 BPM. ON GLUCERNA 1.2 G-TUBE FEEDING REGULATED AT 75ML/HR, PATENT AND INTACT. WITH CONDOM CATHETER ATTACHED TO UROBAG DRAINING TO YELLOW COLORED URINE. SAFETY PRECAUTIONS IMPLEMENTED: HEAD OF BED ELEVATED TO 30%, CALL BUTTON AND TABLE WITHIN EASY REACH, SIDE RAILS UP X2, BED IN LOWEST LOCKED POSITION. WILL CONTINUE PLAN OF CARE.
[2021-11-10] MEDS: ACETAMINOPHEN 650 MG/20.3 ML UDC PEG PRN (20:21)
[2021-11-10] MEDS: SENNOSIDES 8.6 MG TABLET GT SCH (21:51)
[2021-11-11] VITALS (7 sets, daily range): BP systolic 105–121; BP diastolic 50–79
[2021-11-11] MEDS: AMPICILLIN 1 GM in IV NS 0.9% 50 ML IV SCH ×5 (00:19→23:42)
[2021-11-11] MEDS: METOPROLOL TARTRATE 50 MG TABLET GT SCH ×4 (00:33→17:21)
[2021-11-11] MEDS: BLOOD SUGAR DIAGNOSTIC 1 EACH STRIP IN SCH ×5 (00:47→23:37)
[2021-11-11] MEDS: IV NS 0.9% 1,000 ML IV PRN ×2 (00:50→23:39)
[2021-11-11] MEDS: SULFAMETHOXAZOLE/TRIMETHOPRIM 10 ML in IV D5W 250 ML IV SCH ×3 (00:52→16:44)
[2021-11-11] MEDS: BACLOFEN (10 MG) 10 MG TABLET GT SCH ×3 (05:10→21:33)
[2021-11-11] MEDS: GLUCERNA 1.2 1,000 ML BOTTLE NG PRN (05:39)
--- NOTE | 2021-11-11 07:00 | NUR ---
PREDATOR CONTROL TRAPPER OPENING NOTES PATIENT LAYING IN BED, A/O X 1, OBTUNDED. ON VENT WITH SHILEY 8 XLT AND THE FOLLOWING SETTINGS: FI02 40%, PEEP 5, TV 450. HOB AT 45 DEGREES. G-TUBE IN PLACE WITH GLUCERNA 1.2 @ 75 ML/HR. EYAL MIDLINE CLEAN, INTACT, AND FLUSHING WELL WITH NS @ 125 ML/HR. CONDOM CATHETER IN PLACE DRAINING CLEAR YELLOW URINE TO GRAVITY. SAFETY MEASURES IN PLACE: BED IN LOWEST LOCKED POSITION, SIDE RAILS UP X 2, CALL LIGHT WITHIN REACH. WILL CONTINUE TO MONITOR. Addendum: 11/11/21 at 0741 by PRAMOD JOSE RN ON TELE MONITOR READING NS 74
--- NOTE | 2021-11-11 07:08 | NUR ---
CODING SPEC CLOSING NOTES: PATIENT IS SLEEPING COMFORTABLY IN BED AROUSABLE TO TACTILE STIMULI. BED IN LOWEST LOCKED POSITION. HOB AT 45 DEGREES. ON MECHANICAL VENT SATURATING WELL. ON G TUBE FEEDING OF GLUCERNA 1.2 REGULATED @75 ML PER HOUR. WITH IV ACCESS LINE AT EYAL MIDLINE INFUSING WITH NS REGULATED AT 125ML/HR. KEPT CLEAN AND DRY. NEEDS ATTENDED. ENDORSED TO MORNING SHIFT FOR JENNY.
[2021-11-11] MEDS: FERROUS SULFATE UDC 300 MG/5 ML UDC GT SCH (08:29)
[2021-11-11] MEDS: VALPROIC ACID 250 MG/5 ML UDC GT SCH ×3 (08:29→17:17)
[2021-11-11] MEDS: LEVETIRACETAM SOL (5 ML) 100 MG/ML UDC GT SCH ×2 (08:29→21:33)
[2021-11-11] MEDS: CHLORHEXIDINE GLUCONATE 15 ML UDC MM SCH ×2 (08:30→21:41)
[2021-11-11] MEDS: PANTOPRAZOLE 40 MG/PACK PACK GT SCH (08:30)
[2021-11-11] MEDS: DOCUSATE SODIUM LIQ 100 MG/10 ML UDC GT SCH (08:30)
[2021-11-11] MEDS: MULTIVITAMINS,THERAGRAN 1 UDTAB TABLET GT SCH (08:30)
[2021-11-11] MEDS: ZINC SULFATE 220 MG CAPSULE GT SCH (08:30)
[2021-11-11] MEDS: PROSOURCE / PROSTAT (PYXIS) 30 ML UDC GT SCH (08:36)
[2021-11-11] MEDS: LACOSAMIDE 50 MG TABLET PO SCH ×2 (08:36→21:33)
[2021-11-11] MEDS: ARGININE/GLUTAMINE/CALCIUM BMB 1 EACH POWD.PACK GT SCH ×2 (08:36→17:21)
[2021-11-11] MEDS: NEOMY SULF/BACITRAC ZN/POLY 15 GM TUBE TP SCH (08:37)
[2021-11-11] MEDS: THERAHONEY GEL 1.5 OZ TUBE TP SCH (08:37)
[2021-11-11] MEDS: COLISTIMETHATE SODIUM IV SCH ×2 (09:00→21:23)
[2021-11-11] MEDS: NS 0.9% IV SCH ×2 (09:00→21:23)
[2021-11-11 11:34] LABS: BASOPHILS % (AUTO) 0.1 % (0.0-2.0); EOSINOPHILS % (AUTO) 0.6 % (0.0-6.0); HEMATOCRIT 23 % (39-51); HEMOGLOBIN 7.7 g/dL (13.5-17.5); LYMPHOCYTES # (AUTO) 3.6 K/uL (0.8-4.8); MEAN CORPUSCULAR HGB CONC 34 g/dl (31.0-36.0); MEAN CORPUSCULAR VOLUME 95 fL (80-96); MONOCYTES # (AUTO) 0.8 K/uL (0.1-1.30); MONOCYTES % (AUTO) 6.2 % (2.0-12.0); NEUTROPHILS # (AUTO) 8.8 K/uL (1.8-8.9); NEUTROPHILS % (AUTO) 66.1 % (43.0-81.0); PLATELET COUNT (AUTO) 138 K/uL (150-450); RED BLOOD CELL COUNT(AUTO) 2.41 MIL/uL (4.5-6.0); WHITE BLOOD COUNT (AUTO) 13.4 K/uL (4.3-11.0)
[2021-11-11 14:32] LABS: CALCIUM, SERUM 9.6 mg/dL (8.5-10.1); CREATININE 2.4 mg/dL (0.6-1.3); MAGNESIUM 1.5 mg/dL (1.8-2.4); PHOSPHORUS 5.4 mg/dL (2.5-4.9); POTASSIUM 3.8 mmol/L (3.5-5.1)
[2021-11-11] MEDS: ASCORBIC ACID 500 MG TABLET GT SCH (17:18)
--- NOTE | 2021-11-11 19:00 | NUR ---
FLUE LINING DIPPER CLOSING NOTES PATIENT LAYING IN BED, A/O X 1, OBTUNDED. ON VENT WITH SHILEY 8 XLT AND THE FOLLOWING SETTINGS: FI02 40%, PEEP 5, TV 450. HOB AT 45 DEGREES. TELE MONITOR READING NS 83. G-TUBE IN PLACE WITH GLUCERNA 1.2 @ 75 ML/HR. EYAL MIDLINE CLEAN, INTACT, AND FLUSHING WELL WITH NS @ 125 ML/HR. CONDOM CATHETER IN PLACE DRAINING CLEAR YELLOW URINE TO GRAVITY. SAFETY MEASURES IN PLACE: BED IN LOWEST LOCKED POSITION, SIDE RAILS UP X 2, CALL LIGHT WITHIN REACH. ALL NEEDS MET. WILL ENDORSE TO FIRE MANAGEMENT TECHNICIAN FOR JENNY.
[2021-11-11] MEDS: SENNOSIDES 8.6 MG TABLET GT SCH (21:34)
[2021-11-11] MEDS: INSULIN REGULAR, HUMAN 100 UNIT/ML 3 ML VIAL SQ PRN (23:38)
--- NOTE | 2021-11-11 23:40 | NUR ---
ACCU CHECK Bld glucose 82mg/dl Hold insulin per level ordered.
[2021-11-12] VITALS: BP 118/68
[2021-11-12] MEDS: GLUCERNA 1.2 1,000 ML BOTTLE NG PRN ×3 (00:02→21:50)
[2021-11-12] MEDS: SULFAMETHOXAZOLE/TRIMETHOPRIM 10 ML in IV D5W 250 ML IV SCH ×3 (01:03→16:07)
[2021-11-12] MEDS: METOPROLOL TARTRATE 50 MG TABLET GT SCH ×4 (01:19→17:28)
[2021-11-12 04:00] VITALS: BP 110/53
[2021-11-12] MEDS: BACLOFEN (10 MG) 10 MG TABLET GT SCH ×3 (05:13→21:33)
[2021-11-12] MEDS: AMPICILLIN 1 GM in IV NS 0.9% 50 ML IV SCH ×3 (05:15→17:27)
[2021-11-12] MEDS: BLOOD SUGAR DIAGNOSTIC 1 EACH STRIP IN SCH ×3 (05:44→17:28)
[2021-11-12] MEDS: DEXTROSE 50%-WATER 50 ML DISP.SYRIN IV PRN (05:46)
--- NOTE | 2021-11-12 05:52 | NUR ---
ACCU CHECK Bld glucose 50mg/dl. Protocol followed. Given Dextrose 50% IV, will reassess.
--- NOTE | 2021-11-12 06:53 | NUR ---
ACCU CHECK Reassessment after Dextrose 50% IV, blood glucose improved to 86mg/dl.
--- NOTE | 2021-11-12 07:00 | NUR ---
STOCK TAKER OPENING NOTES PATIENT LAYING IN BED, A/O X 1, OBTUNDED. ON VENT WITH SHILEY 8 XLT AND THE FOLLOWING SETTINGS: FI02 40%, PEEP 5, TV 450. HOB AT 45 DEGREES. TELE MONITOR READING NS 86. G-TUBE IN PLACE WITH GLUCERNA 1.2 @ 75 ML/HR. EYAL MIDLINE CLEAN, INTACT, AND FLUSHING WELL WITH NS @ 100 ML/HR. CONDOM CATHETER IN PLACE DRAINING CLEAR YELLOW URINE TO GRAVITY. SAFETY MEASURES IN PLACE: BED IN LOWEST LOCKED POSITION, SIDE RAILS UP X 2, CALL LIGHT WITHIN REACH. ALL NEEDS MET. WILL CONTINUE TO MONITOR.
--- NOTE | 2021-11-12 07:50 | NUR ---
END OF SHIFT REPORT Patient is obtunded, eyes open. On mechanical vent, the same settings. Sinus rhythm in the Tele monitor HR 82. EYAL midline intact, IV fluids infusing, on IV abx. Afebrile. Condom cath in placed, urine output 2100, had BM this shift. Gtube feeding infusing. Coccyx wound, wound consult. Wound dressing done. Turned and repositioned, offload heels at all times. Care endorsed to CARLEE Farfan.
[2021-11-12 08:00] VITALS: BP 118/71
[2021-11-12] MEDS: LACOSAMIDE 50 MG TABLET PO SCH ×2 (08:37→21:33)
[2021-11-12] MEDS: PANTOPRAZOLE 40 MG/PACK PACK GT SCH (08:38)
[2021-11-12] MEDS: VALPROIC ACID 250 MG/5 ML UDC GT SCH ×3 (08:38→16:42)
[2021-11-12] MEDS: LEVETIRACETAM SOL (5 ML) 100 MG/ML UDC GT SCH ×2 (08:38→21:33)
[2021-11-12] MEDS: MULTIVITAMINS,THERAGRAN 1 UDTAB TABLET GT SCH (08:39)
[2021-11-12] MEDS: CHLORHEXIDINE GLUCONATE 15 ML UDC MM SCH ×2 (08:39→21:33)
[2021-11-12] MEDS: ZINC SULFATE 220 MG CAPSULE GT SCH (08:39)
[2021-11-12] MEDS: DOCUSATE SODIUM LIQ 100 MG/10 ML UDC GT SCH (08:39)
[2021-11-12] MEDS: FERROUS SULFATE UDC 300 MG/5 ML UDC GT SCH (08:39)
[2021-11-12] MEDS: NEOMY SULF/BACITRAC ZN/POLY 15 GM TUBE TP SCH (08:40)
[2021-11-12] MEDS: PROSOURCE / PROSTAT (PYXIS) 30 ML UDC GT SCH (08:40)
[2021-11-12] MEDS: ARGININE/GLUTAMINE/CALCIUM BMB 1 EACH POWD.PACK GT SCH ×2 (08:40→16:42)
[2021-11-12] MEDS: THERAHONEY GEL 1.5 OZ TUBE TP SCH (08:41)
[2021-11-12] MEDS: COLISTIMETHATE SODIUM IV SCH ×2 (08:44→21:14)
[2021-11-12] MEDS: NS 0.9% IV SCH ×2 (08:44→21:14)
--- NOTE | 2021-11-12 12:10 | NUR ---
DRY KILN OPERATOR HELPER NOTES PATIENT NOTED WITH ACCUCHECK OF 62 @ 1150. 200 mL APPLE JUICE MIXED WITH TWO PACKETS OF C+H SUGAR GIVEN VIA G-TUBE. BLOOD GLUCOSE RECHECKED AT 1210 FOUND TO BE 80. WILL CONTINUE TO MONITOR GLUCOSE LEVEL. Addendum: 11/12/21 at 1452 by PRAMOD JOSE RN GLUCOSE WAS RECHECKED AT 1220 (30 MINUTES FOLLOWING ADMINISTRATION OF APPLE JUICE)
[2021-11-12 16:00] VITALS: BP 103/60
[2021-11-12] MEDS: ASCORBIC ACID 500 MG TABLET GT SCH (17:27)
[2021-11-12 18:20] LABS: BASOPHILS % (AUTO) 0.3 % (0.0-2.0); EOSINOPHILS % (AUTO) 0.8 % (0.0-6.0); HEMATOCRIT 24 % (39-51); HEMOGLOBIN 8.1 g/dL (13.5-17.5); LYMPHOCYTES # (AUTO) 2.6 K/uL (0.8-4.8); LYMPHOCYTES % (AUTO) 24.7 % (20.0-44.0); MEAN CORPUSCULAR HGB CONC 34 g/dl (31.0-36.0); MEAN CORPUSCULAR VOLUME 95 fL (80-96); MONOCYTES # (AUTO) 0.6 K/uL (0.1-1.30); MONOCYTES % (AUTO) 5.7 % (2.0-12.0); NEUTROPHILS # (AUTO) 7.3 K/uL (1.8-8.9); NEUTROPHILS % (AUTO) 68.5 % (43.0-81.0); PLATELET COUNT (AUTO) 132 K/uL (150-450); RED BLOOD CELL COUNT(AUTO) 2.54 MIL/uL (4.5-6.0); WHITE BLOOD COUNT (AUTO) 10.6 K/uL (4.3-11.0)
[2021-11-12 18:40] LABS: CALCIUM, SERUM 9.4 mg/dL (8.5-10.1); CREATININE 2.3 mg/dL (0.6-1.3); MAGNESIUM 1.4 mg/dL (1.8-2.4); PHOSPHORUS 4.4 mg/dL (2.5-4.9); POTASSIUM 3.8 mmol/L (3.5-5.1)
--- NOTE | 2021-11-12 19:00 | NUR ---
SUPERVISOR MONEY ROOM CLOSING NOTES PATIENT LAYING IN BED, A/O X 1, OBTUNDED. ON VENT WITH SHILEY 8 XLT AND THE FOLLOWING SETTINGS: FI02 40%, PEEP 5, TV 450. HOB AT 45 DEGREES. TELE MONITOR READING NS 84. G-TUBE IN PLACE WITH GLUCERNA 1.2 @ 75 ML/HR. EYAL MIDLINE CLEAN, INTACT, AND FLUSHING WELL WITH NS @ 100 ML/HR. CONDOM CATHETER IN PLACE DRAINING CLEAR YELLOW URINE TO GRAVITY. 2,500 ML DRAINED DURING SHIFT, BM X 1. SAFETY MEASURES IN PLACE: BED IN LOWEST LOCKED POSITION, SIDE RAILS UP X 2, CALL LIGHT WITHIN REACH. ALL NEEDS MET. WILL ENDORSE TO FISHER FOR JENNY.
--- NOTE | 2021-11-12 19:46 | NUR ---
S[employer] HELPER OPENING NOTES: RECEIVED PATIENT AWAKE IN BED, EYES OBTUNDED, BED IN LOW POSITION CALL LIGHTS WITHIN REACH, NO COMPLAIN OF PAIN AND DISCOMFORT AT THIS TIME, PATIENT ON MECH VENT SATURATING WELL, HOB TO REMAIN AT 45 DEGREE AT ALL TIME, ON GTUBE FEEDING OF GLUCERNA 1.2@75ML PER HOUR INFUSING WELL, ON CONDOM CATHETER WITH URINE OUTPUT AT 50CC, WITH IV LINE AT EYAL ML- WITH ONGOING NSS@100ML PER HOUR, PATIENT KEPT CLEAN AND DRY ALL NEEDS MET WILL CONTINUE TO MONITOR.
[2021-11-12 21:00] VITALS: BP 95/53
[2021-11-12] MEDS: SENNOSIDES 8.6 MG TABLET GT SCH (21:33)
[2021-11-13] MEDS: AMPICILLIN 1 GM in IV NS 0.9% 50 ML IV SCH ×5 (00:01→23:25)
--- NOTE | 2021-11-13 00:05 | NUR ---
RN NOTES: BS-86- NO INSULIN GIVEN PER SLIDING SCALE OUT OF PARAMETER
[2021-11-13] MEDS: SULFAMETHOXAZOLE/TRIMETHOPRIM 10 ML in IV D5W 250 ML IV SCH ×3 (00:07→15:54)
[2021-11-13 00:08] VITALS: BP 104/60
[2021-11-13] MEDS: METOPROLOL TARTRATE 50 MG TABLET GT SCH ×5 (00:27→23:25)
[2021-11-13] MEDS: ACETAMINOPHEN 650 MG/20.3 ML UDC PEG PRN ×2 (00:28→08:37)
[2021-11-13 04:20] VITALS: BP 139/59
[2021-11-13] MEDS: BLOOD SUGAR DIAGNOSTIC 1 EACH STRIP IN SCH ×5 (06:00→23:44)
[2021-11-13] MEDS: BACLOFEN (10 MG) 10 MG TABLET GT SCH ×3 (06:09→21:01)
--- NOTE | 2021-11-13 06:26 | NUR ---
RN NOTES: BS-64 NO INSULIN GIVEN PER SLIDING SCALE
--- NOTE | 2021-11-13 06:51 | NUR ---
RECEPTIONIST/TELEPHONE OPERATOR NOTES: RECEIVED PATIENT SLEEP IN BED COMFORTABLY ON [facility]. VENT NO SOB WAS OBSERVED, BED IN LOW POSITION, HOB AT 45 DEGREE ON GTUBE FEEDING INFUSING WELL, WITH IV LINE AT EYAL ML WITH ONGOING NSS@100ML PER HOUR INFUSING WELL, ON TELE MONITORING SR -68, PATIENT KEPT CLEAN AND DRY ALL NEEDS MET ENDORSE TO INCOMING SHIFT.
[2021-11-13] MEDS: IV NS 0.9% 1,000 ML IV PRN (07:06)
--- NOTE | 2021-11-13 07:52 | NUR ---
CRIMINAL JUSTICE TEACHER OPENING NOTES PATIENT LAYING IN BED,OBTUNDED. ON VENT WITH SHILEY 8 XLT AND THE FOLLOWING SETTINGS: FI02 40%, PEEP 5, TV 450. HOB AT 45 DEGREES. TELE MONITOR READING NS 86. G-TUBE IN PLACE WITH GLUCERNA 1.2 @ 75 ML/HR. EYAL MIDLINE CLEAN, INTACT, AND FLUSHING WELL WITH NS @ 100 ML/HR. CONDOM CATHETER IN PLACE DRAINING CLEAR YELLOW URINE TO GRAVITY. SAFETY MEASURES IN PLACE: BED IN LOWEST LOCKED POSITION, SIDE RAILS UP X 2, CALL LIGHT WITHIN REACH. WILL MONITOR FOR SIGNIFICANT CHANGES AND REPORT.
[2021-11-13 08:12] VITALS: BP 108/48
[2021-11-13] MEDS: DOCUSATE SODIUM LIQ 100 MG/10 ML UDC GT SCH (08:25)
[2021-11-13] MEDS: CHLORHEXIDINE GLUCONATE 15 ML UDC MM SCH ×2 (08:25→21:01)
[2021-11-13] MEDS: VALPROIC ACID 250 MG/5 ML UDC GT SCH ×3 (08:25→16:13)
[2021-11-13] MEDS: ZINC SULFATE 220 MG CAPSULE GT SCH (08:26)
[2021-11-13] MEDS: LEVETIRACETAM SOL (5 ML) 100 MG/ML UDC GT SCH ×2 (08:26→21:01)
[2021-11-13] MEDS: PANTOPRAZOLE 40 MG/PACK PACK GT SCH (08:26)
[2021-11-13] MEDS: MULTIVITAMINS,THERAGRAN 1 UDTAB TABLET GT SCH (08:26)
[2021-11-13] MEDS: LACOSAMIDE 50 MG TABLET PO SCH ×2 (08:26→21:05)
[2021-11-13] MEDS: THERAHONEY GEL 1.5 OZ TUBE TP SCH (08:29)
[2021-11-13] MEDS: ARGININE/GLUTAMINE/CALCIUM BMB 1 EACH POWD.PACK GT SCH ×2 (08:31→16:15)
[2021-11-13] MEDS: PROSOURCE / PROSTAT (PYXIS) 30 ML UDC GT SCH (08:31)
[2021-11-13] MEDS: NS 0.9% IV SCH ×2 (09:15→21:01)
[2021-11-13] MEDS: COLISTIMETHATE SODIUM IV SCH ×2 (09:15→21:01)
[2021-11-13] MEDS: FERROUS SULFATE UDC 300 MG/5 ML UDC GT SCH (09:16)
--- NOTE | 2021-11-13 09:20 | NUR ---
RN NOTES SPOKE W/ PHARMACY FOR NEOSPORIN REFILL; WILL SEND TO UNIT PER PHARMACY.
--- NOTE | 2021-11-13 10:04 | NUR ---
WOUND CARE CONSULT: RECEIVED CONSULT FOR SACRAL WOUND. PT IS FOLLOWED BY PLASTIC SURGERY TEAM FOR WOUND CARE. DEFER TO SURGICAL TEAM FOR WOUND TREATMENT PLAN. ALL SKIN PROTECTION MEASURES IN PLACE AND DISCUSSED WITH NURSING STAFF.
[2021-11-13 10:05] LABS: BASOPHILS # (AUTO) 0.1 K/uL (0.0-0.2); BASOPHILS % (AUTO) 0.8 % (0.0-2.0); EOSINOPHILS % (AUTO) 0.8 % (0.0-6.0); HEMATOCRIT 22 % (39-51); HEMOGLOBIN 7.3 g/dL (13.5-17.5); LYMPHOCYTES # (AUTO) 2.1 K/uL (0.8-4.8); LYMPHOCYTES % (AUTO) 22.5 % (20.0-44.0); MEAN CORPUSCULAR HGB CONC 34 g/dl (31.0-36.0); MEAN CORPUSCULAR VOLUME 95 fL (80-96); MONOCYTES # (AUTO) 0.9 K/uL (0.1-1.30); MONOCYTES % (AUTO) 9.2 % (2.0-12.0); NEUTROPHILS # (AUTO) 6.3 K/uL (1.8-8.9); NEUTROPHILS % (AUTO) 66.7 % (43.0-81.0); PLATELET COUNT (AUTO) 104 K/uL (150-450); RED BLOOD CELL COUNT(AUTO) 2.25 MIL/uL (4.5-6.0); WHITE BLOOD COUNT (AUTO) 9.5 K/uL (4.3-11.0)
[2021-11-13 10:10] LABS: CALCIUM, SERUM 9.6 mg/dL (8.5-10.1); CREATININE 2.5 mg/dL (0.6-1.3); MAGNESIUM 1.4 mg/dL (1.8-2.4); PHOSPHORUS 4.4 mg/dL (2.5-4.9); POTASSIUM 3.5 mmol/L (3.5-5.1)
[2021-11-13] MEDS: NEOMY SULF/BACITRAC ZN/POLY 15 GM TUBE TP SCH (10:20)
[2021-11-13 12:10] VITALS: BP 110/51
[2021-11-13] MEDS: INSULIN REGULAR, HUMAN 100 UNIT/ML 3 ML VIAL SQ PRN ×2 (12:25→17:30)
--- NOTE | 2021-11-13 15:23 | NUR ---
RN NOTES CURRENT VS TAKEN: BP-104/53, HR-87, R-20, T-98.8, E0RIT-24% [facility]. PHLEB TECH AT BEDSIDE FOR BLOOD DRAW.
[2021-11-13 16:03] VITALS: BP 101/53
[2021-11-13] MEDS: ASCORBIC ACID 500 MG TABLET GT SCH (17:35)
--- NOTE | 2021-11-13 19:55 | NUR ---
DOT ETCHER APPRENTICE OPENING NOTES PATIENT RECEIVED IN BED WITH EYES CLOSED BUT EASY TO AROUSED.ON VENT WITH SHILEY 8 XLT AND THE FOLLOWING SETTINGS: FI02 40%, PEEP 5, TV 450. HOB AT 45 DEGREES. G-TUBE IN PLACE WITH GLUCERNA 1.2 @ 75 ML/HR.NO RESIDUAL NOTED.HOB ELEVATED AT ALL TIMES. EYAL MIDLINE CLEAN, INTACT, AND FLUSHING WELL WITH NS @ 100 ML/HR. CONDOM CATHETER IN PLACE DRAINING CLEAR YELLOW URINE TO GRAVITY. SAFETY MEASURES IN PLACE: BED IN LOWEST LOCKED POSITION, SIDE RAILS UP X 2, CALL LIGHT WITHIN REACH. WILL MONITOR FOR SIGNIFICANT CHANGES AND REPORT.
[2021-11-13 20:00] VITALS: BP 146/58
[2021-11-13] MEDS: SENNOSIDES 8.6 MG TABLET GT SCH (21:01)
[2021-11-14] VITALS: BP 110/56
[2021-11-14] MEDS: SULFAMETHOXAZOLE/TRIMETHOPRIM 10 ML in IV D5W 250 ML IV SCH ×3 (00:04→17:45)
[2021-11-14 04:00] VITALS: BP 105/65
[2021-11-14] MEDS: BACLOFEN (10 MG) 10 MG TABLET GT SCH ×3 (04:14→21:14)
[2021-11-14] MEDS: METOPROLOL TARTRATE 50 MG TABLET GT SCH ×3 (05:09→17:23)
[2021-11-14] MEDS: AMPICILLIN 1 GM in IV NS 0.9% 50 ML IV SCH ×3 (05:09→19:38)
[2021-11-14] MEDS: BLOOD SUGAR DIAGNOSTIC 1 EACH STRIP IN SCH ×3 (05:19→18:11)
--- NOTE | 2021-11-14 07:27 | NUR ---
BUS SYSTEM OPERATOR CLOSING NOTES: PATIENT LAYING IN BED, A/O X 1, OBTUNDED. ON VENT WITH SHILEY#8 XLT AND WITH CURRENT SETTINGS: FI02 40%, PEEP 5, TV 450. TELE MONITOR READING NS 83. G-TUBE IN PLACE WITH GLUCERNA 1.2 @ 75 ML/HR. EYAL MIDLINE CLEAN, INTACT, AND FLUSHING WELL WITH NS @ 100 ML/HR. CONDOM CATHETER IN PLACE DRAINING CLEAR YELLOW URINE TO GRAVITY. SAFETY MEASURES MAINTAINED: BED IN LOWEST LOCKED POSITION, SIDE RAILS UP X 2, CALL LIGHT WITHIN REACH. ALL NEEDS MET. WILL CONTINUE TO MONITOR AND ENDORSED TO NEXT SHIFT FOR CONTINUITY OF CARE.
--- NOTE | 2021-11-14 07:30 | NUR ---
MERCHANDISER OPENING NOTES PATIENT LAYING IN BED, A/O X 1, OBTUNDED. ON VENT WITH SHILEY#8 XLT AND WITH CURRENT SETTINGS: FI02 40%, PEEP 5, TV 450. TELE MONITOR READING NS 83. G-TUBE IN PLACE WITH GLUCERNA 1.2 @ 75 ML/HR. EYAL MIDLINE CLEAN, INTACT, AND FLUSHING WELL WITH NS @ 100 ML/HR. CONDOM CATHETER IN PLACE DRAINING CLEAR YELLOW URINE TO GRAVITY. SAFETY MEASURES MAINTAINED: BED IN LOWEST LOCKED POSITION, SIDE RAILS UP X 2, CALL LIGHT WITHIN REACH. ALL NEEDS MET. WILL CONTINUE TO MONITOR FOR CONTINUITY OF CARE.
[2021-11-14 07:45] LABS: CALCIUM, SERUM 10.7 mg/dL (8.5-10.1); CREATININE 2.4 mg/dL (0.6-1.3); MAGNESIUM 1.5 mg/dL (1.8-2.4); PHOSPHORUS 5.3 mg/dL (2.5-4.9); POTASSIUM 3.5 mmol/L (3.5-5.1)
[2021-11-14 08:00] VITALS: BP 108/50
[2021-11-14 08:50] LABS: BASOPHILS % (AUTO) 0.2 % (0.0-2.0); EOSINOPHILS % (AUTO) 0.8 % (0.0-6.0); HEMATOCRIT 25 % (39-51); HEMOGLOBIN 8.2 g/dL (13.5-17.5); LYMPHOCYTES # (AUTO) 1.8 K/uL (0.8-4.8); LYMPHOCYTES % (AUTO) 18.4 % (20.0-44.0); MEAN CORPUSCULAR HGB CONC 33 g/dl (31.0-36.0); MEAN CORPUSCULAR VOLUME 97 fL (80-96); MONOCYTES # (AUTO) 1.3 K/uL (0.1-1.30); MONOCYTES % (AUTO) 13.1 % (2.0-12.0); NEUTROPHILS # (AUTO) 6.6 K/uL (1.8-8.9); NEUTROPHILS % (AUTO) 67.5 % (43.0-81.0); PLATELET COUNT (AUTO) 99 K/uL (150-450); RED BLOOD CELL COUNT(AUTO) 2.56 MIL/uL (4.5-6.0); WHITE BLOOD COUNT (AUTO) 9.8 K/uL (4.3-11.0)
[2021-11-14] MEDS: ARGININE/GLUTAMINE/CALCIUM BMB 1 EACH POWD.PACK GT SCH ×2 (09:02→17:50)
[2021-11-14] MEDS: PROSOURCE / PROSTAT (PYXIS) 30 ML UDC GT SCH (09:02)
[2021-11-14] MEDS: VALPROIC ACID 250 MG/5 ML UDC GT SCH ×3 (09:03→17:50)
[2021-11-14] MEDS: CHLORHEXIDINE GLUCONATE 15 ML UDC MM SCH ×2 (09:03→21:14)
[2021-11-14] MEDS: FERROUS SULFATE UDC 300 MG/5 ML UDC GT SCH (09:03)
[2021-11-14] MEDS: LEVETIRACETAM SOL (5 ML) 100 MG/ML UDC GT SCH ×2 (09:03→21:13)
[2021-11-14] MEDS: ZINC SULFATE 220 MG CAPSULE GT SCH (09:04)
[2021-11-14] MEDS: LACOSAMIDE 50 MG TABLET PO SCH ×2 (09:04→21:14)
[2021-11-14] MEDS: DOCUSATE SODIUM LIQ 100 MG/10 ML UDC GT SCH (09:04)
[2021-11-14] MEDS: MULTIVITAMINS,THERAGRAN 1 UDTAB TABLET GT SCH (09:04)
[2021-11-14] MEDS: PANTOPRAZOLE 40 MG/PACK PACK GT SCH (09:04)
[2021-11-14] MEDS: NEOMY SULF/BACITRAC ZN/POLY 15 GM TUBE TP SCH (09:13)
[2021-11-14] MEDS: THERAHONEY GEL 1.5 OZ TUBE TP SCH (09:13)
[2021-11-14] MEDS: NS 0.9% IV SCH ×2 (10:12→21:14)
[2021-11-14] MEDS: COLISTIMETHATE SODIUM IV SCH ×2 (10:12→21:14)
[2021-11-14 12:00] VITALS: BP 103/64
[2021-11-14] MEDS ORDERED: MORPHINE SULFATE/PF 30 MG in IV NS 0.9% 27 ML, PCA TOTAL VOLUME 1 BAG IV PRN ×3 (12:30)
[2021-11-14] MEDS ORDERED: LORAZEPAM INJ 2 MG/ML VIAL IV PRN (12:30)
[2021-11-14] MEDS ORDERED: MAGNESIUM OXIDE 400 MG TABLET NG ONE (12:30)
[2021-11-14] MEDS ORDERED: MORPHINE SULFATE PF DRIP 250 MG in IV D5W 240 ML IV PRN (13:30)
[2021-11-14 16:00] VITALS: BP 128/59
[2021-11-14] MEDS: ASCORBIC ACID 500 MG TABLET GT SCH (17:50)
--- NOTE | 2021-11-14 18:27 | NUR ---
PAINTER AIRBRUSH CLOSING NOTES PATIENT LAYING IN BED, A/O X 1, OBTUNDED. ON VENT WITH SHILEY#8 XLT AND WITH CURRENT SETTINGS: FI02 40%, PEEP 5, TV 450. TELE MONITOR READING NS 83. G-TUBE IN PLACE WITH GLUCERNA 1.2 @ 75 ML/HR. EYAL MIDLINE CLEAN, INTACT, AND FLUSHING WELL WITH NS @ 100 ML/HR. CONDOM CATHETER IN PLACE DRAINING CLEAR YELLOW URINE TO GRAVITY. SAFETY MEASURES MAINTAINED: BED IN LOWEST LOCKED POSITION, SIDE RAILS UP X 2, CALL LIGHT WITHIN REACH. ALL NEEDS MET. WILL ENDORSE TO ONCOMING SHIFT FOR CONTINUITY OF CARE.
--- NOTE | 2021-11-14 19:30 | NUR ---
TELE/RN OPENING NOTE RECEIVED PATIENT RESTING IN BED. OBTUNDED, NON-VERBAL AT BASELINE. NO S/SX OF PAIN NOTED AT THIS TIME. CONTINUES ON MECHANICAL VENT WITH PATIENT TOLERATING SETTINGS WELL. IV ACCESS TO RIGHT UPPER ARM MIDLINE #18G INTACT AND PATENT. CONTINUES ON IVF NS @ 100ML/HR. CONTINUES ON IV ABX. CONTINUES ON GT FEED WITH 10CC RESIDUAL NOTED AT THIS TIME. GLUCERNA 1.2 RUNNING AT 75ML/HR. CONTINUES ON TELE MONITOR WITH CURRENT READING ST HR 115. CALL LIGHT WITHIN REACH. ASPIRATION, FALL AND SAFETY PRECAUTIONS MAINTAINED. WILL CONTINUE TO MONITOR.
[2021-11-14 20:00] VITALS: BP 105/60
[2021-11-14] MEDS: DAKINS QUARTER STRENGTH (0.125%) 480 ML BOTTLE TOP SCH (20:35)
[2021-11-14] MEDS: SENNOSIDES 8.6 MG TABLET GT SCH (21:14)
--- NOTE | 2021-11-14 23:45 | NUR ---
TELE/RN NOTE PATIENT HAD EPISODE OF EMESIS TONIGHT. ADMINISTERED PRN ZOFRAN VIA IV. MINIMAL RESIDUAL NOTED IN GTUBE. PATIENT CLEANED UP AND CURRENTLY RESTING IN BED. WILL CONTINUE TO MONITOR.
[2021-11-14] MEDS: ONDANSETRON HCL/PF 4 MG/2 ML VIAL IVP PRN (23:49)
[2021-11-15] VITALS: BP 111/61
[2021-11-15] MEDS: METOPROLOL TARTRATE 50 MG TABLET GT SCH ×4 (00:21→18:31)
[2021-11-15] MEDS: BLOOD SUGAR DIAGNOSTIC 1 EACH STRIP IN SCH ×4 (00:21→18:30)
[2021-11-15] MEDS: SULFAMETHOXAZOLE/TRIMETHOPRIM 10 ML in IV D5W 250 ML IV SCH ×3 (00:21→16:00)
[2021-11-15] MEDS: AMPICILLIN 1 GM in IV NS 0.9% 50 ML IV SCH ×5 (01:12→23:58)
[2021-11-15] MEDS: GLUCERNA 1.2 1,000 ML BOTTLE NG PRN (03:42)
[2021-11-15 04:00] VITALS: BP 119/82
[2021-11-15] MEDS: BACLOFEN (10 MG) 10 MG TABLET GT SCH ×3 (05:55→21:36)
--- NOTE | 2021-11-15 06:30 | NUR ---
TELE/RN CLOSING NOTE PATIENT CURRENTLY RESTING IN BED. OBTUNDED, NON-VERBAL AT BASELINE. NO S/SX OF PAIN NOTED AT THIS TIME. CONTINUES ON MECHANICAL VENT WITH PATIENT TOLERATING SETTINGS WELL. IV ACCESS TO RIGHT UPPER ARM MIDLINE #18G INTACT AND PATENT. CONTINUES ON IVF NS @ 100ML/HR. CONTINUES ON IV ABX. CONTINUES ON GT FEED WITH NO RESIDUAL NOTED AT THIS TIME. GLUCERNA 1.2 RUNNING AT 75ML/HR. CONTINUES ON TELE MONITOR WITH CURRENT READING ST HR 100. CALL LIGHT WITHIN REACH. ASPIRATION, FALL AND SAFETY PRECAUTIONS MAINTAINED. WILL ENDORSE PLAN OF CARE TO ONCOMING SHIFT RN.
--- NOTE | 2021-11-15 07:30 | NUR ---
VICE PRESIDENT QUALITY NOTES PT IN BED, EYES CLOSED, NO SIGN OF PAIN OR DISTRESS, GT FEEDING INFUSING WELL, KEPT HOB ELEVATED, NO SOB NOTED, KEPT WARM AND COMFORTABLE.
[2021-11-15 08:00] VITALS: BP 89/56
--- NOTE | 2021-11-15 08:49 | NUR ---
WOUND CARE CONSULT: PT SEEN FOR SCALP SCAR WHICH HAS REOPENED WITH ODOR AND SMALL AMOUNT OF BROWNISH DRAINAGE. CONCUR WITH CURRENT ORDERS FOR DAKINS AND FOAM DRESSING. DISCUSSED WITH SURGICAL P.A. AND NURSING STAFF. MD IN AGREEMENT WITH PLAN OF CARE.
[2021-11-15] MEDS: PROSOURCE / PROSTAT (PYXIS) 30 ML UDC GT SCH (09:07)
[2021-11-15] MEDS: THERAHONEY GEL 1.5 OZ TUBE TP SCH (09:07)
[2021-11-15] MEDS: ARGININE/GLUTAMINE/CALCIUM BMB 1 EACH POWD.PACK GT SCH ×2 (09:07→16:08)
[2021-11-15] MEDS: NEOMY SULF/BACITRAC ZN/POLY 15 GM TUBE TP SCH (09:07)
[2021-11-15] MEDS: MULTIVITAMINS,THERAGRAN 1 UDTAB TABLET GT SCH (09:08)
[2021-11-15] MEDS: VALPROIC ACID 250 MG/5 ML UDC GT SCH ×3 (09:08→16:08)
[2021-11-15] MEDS: PANTOPRAZOLE 40 MG/PACK PACK GT SCH (09:08)
[2021-11-15] MEDS: DOCUSATE SODIUM LIQ 100 MG/10 ML UDC GT SCH (09:08)
[2021-11-15] MEDS: CHLORHEXIDINE GLUCONATE 15 ML UDC MM SCH ×2 (09:08→21:36)
[2021-11-15] MEDS: LEVETIRACETAM SOL (5 ML) 100 MG/ML UDC GT SCH ×2 (09:08→21:36)
[2021-11-15] MEDS: FERROUS SULFATE UDC 300 MG/5 ML UDC GT SCH (09:08)
[2021-11-15] MEDS: ZINC SULFATE 220 MG CAPSULE GT SCH (09:08)
[2021-11-15] MEDS: LACOSAMIDE 50 MG TABLET PO SCH ×2 (09:23→21:36)
[2021-11-15] MEDS: DAKINS QUARTER STRENGTH (0.125%) 480 ML BOTTLE TOP SCH (09:23)
[2021-11-15] MEDS: ONDANSETRON HCL/PF 4 MG/2 ML VIAL IVP PRN (09:39)
--- NOTE | 2021-11-15 09:50 | NUR ---
CLOUD SECURITY ARCHITECT NOTES PT IN BED, NO SIGN OF PAIN OR DISTRESS, NOTED WITH SMALL AMOUNT OF GT FORMULA COLORED VOMIT, KEPT HOB ELEVATED, ZOFRAN GIVEN ORDERED, WILL CONTINUE TO MONITOR.
[2021-11-15] MEDS: NS 0.9% IV SCH ×2 (09:57→21:29)
[2021-11-15] MEDS: COLISTIMETHATE SODIUM IV SCH ×2 (09:57→21:29)
--- NOTE | 2021-11-15 10:13 | NUR ---
SHOP TAILOR APPRENTICE NOTES PT SEEN BY DR. DASILVA, INFORMED OF PT'S VOMITING EPISODE, ORDERED TO HOLD FEEDING FOR NOW AND PLACE IT ON LOW SUCTION, STOP SUCTIONING IF THERE IS NO RESIDUAL, ALSO RECEIVED ORDER TO CHANGE IVF TO D5 1/2 NS, NOTED AND CARRIED OUT.
[2021-11-15] MEDS: IV D5/0.45 NACL 1,000 ML IV PRN (10:51)
[2021-11-15 12:00] VITALS: BP 100/50
[2021-11-15] MEDS: DEXTROSE 50%-WATER 50 ML DISP.SYRIN IV PRN (12:10)
[2021-11-15] MEDS ORDERED: MAGNESIUM OXIDE 400 MG TABLET NG ONE (12:30)
--- NOTE | 2021-11-15 15:11 | NUR ---
CUTTER PLASTICS ROLLS NOTES PT'S MOTHER BART AND A FAMILY MEMBER VISITED PT, MOLDED RUBBER GOODS CUTTER NAUN SPOKE WITH HER AND GAVE HER THE LETTER FROM THE HOSPITAL, MS BART ACKNOWLEDGED RECEIPT OF LETTER AND SHE WILL LET US KNOW IF SHE IS READY FOR HOSPICE EVAL/CHANGE OF STATUS FOR THE PT.
[2021-11-15 16:00] VITALS: BP 130/64
[2021-11-15] MEDS: ASCORBIC ACID 500 MG TABLET GT SCH (18:30)
--- NOTE | 2021-11-15 18:41 | NUR ---
INSPECTOR PACKAGER NOTES PT IN BED, NO SIGN OF PAIN OR DISTRESS, NO FURTHER EPISODES OF VOMITING AT THIS TIME, PM MEDS GIVEN, PM CARE DONE, KEPT WARM AND COMFORTABLE.
[2021-11-15 20:00] VITALS: BP 99/48
--- NOTE | 2021-11-15 20:00 | NUR ---
HOSPITAL PERSONNEL DIRECTOR OPENING NOTES: RECEIVED PATIENT SLEEP IN BED COMFORTABLY, HOB AT 45 DEGREE ON MECHANICAL VENT SATURATING WELL, PATIENT ON TELE MONITORING AT SR-95 NO DISTRESS HAS BEEN OBSERVED, PATIENT ON CONDOM CATHETER WITH 100CC URINE OUTPUT, WITH EYAL ML #18 WITH ONGOING D51/2 NSS @100ML PER HOUR INFUSING WELL, PATIENT ON G TUBE FEEDING ON HOLD DUE TO EPISODE OF VOMITING, PATIENT KEPT CLEAN AND DRY ALL NEEDS MET WILL CONTINUE TO MONITOR.
[2021-11-15] MEDS: SENNOSIDES 8.6 MG TABLET GT SCH (21:37)
[2021-11-16] VITALS (7 sets, daily range): BP systolic 98–119; BP diastolic 47–67
[2021-11-16] MEDS: IV D5/0.45 NACL 1,000 ML IV PRN ×2 (00:02→14:19)
[2021-11-16] MEDS: METOPROLOL TARTRATE 50 MG TABLET GT SCH ×4 (00:24→17:47)
[2021-11-16] MEDS: SULFAMETHOXAZOLE/TRIMETHOPRIM 10 ML in IV D5W 250 ML IV SCH ×3 (00:25→17:41)
--- NOTE | 2021-11-16 00:26 | NUR ---
RN NOTES: BS-67- NO INSULIN GIVEN PER SLIDING SCALE
[2021-11-16] MEDS: ONDANSETRON HCL/PF 4 MG/2 ML VIAL IVP PRN (04:14)
[2021-11-16] MEDS: BLOOD SUGAR DIAGNOSTIC 1 EACH STRIP IN SCH ×4 (06:00→17:41)
[2021-11-16] MEDS: BACLOFEN (10 MG) 10 MG TABLET GT SCH ×3 (06:25→21:37)
[2021-11-16] MEDS: AMPICILLIN 1 GM in IV NS 0.9% 50 ML IV SCH ×3 (06:29→18:47)
[2021-11-16] MEDS: DEXTROSE 50%-WATER 50 ML DISP.SYRIN IV PRN (06:33)
--- NOTE | 2021-11-16 06:58 | NUR ---
RN NOTES: BS-60 DEXTROSE 50% GIVEN WILL FOR EVALUATION AND MONITORING PATIENT HAS NO GT TUBE FEEDING DUE TO VOMITTING
--- NOTE | 2021-11-16 07:31 | NUR ---
MANUFACTURING BAKER CLOSING NOTES: PATIENT SLEEP IN BED COMFORTABLY, AROUSABLE TO TACTILE STIMULI, OBTUNDED EYES OPEN, WITH IV LINE AT EYAL ML WITH ONGOING D5 1/2NSS@ 100ML/HR INFUSING WELL, ON CONDOM CATHETER-400CC URINE OUTPUT, TO HOLD G TUBE FEEDING DUE TO EPISODE OF VOMITING X2, PATIENT ON TELE MONITORING- SR-97, ON MECH VENT SATURATING WELL, PATIENT KEPT CLEAN AND DRY, HOB AT 45 DEGREE, ASPIRATION PRECAUTION, ALL NEEDS MET ENDORSE TO INCOMING SHIFT.
--- NOTE | 2021-11-16 08:03 | NUR ---
RN OPENING NOTE PATIENT RECEIVED IN BED WITH AIR MATTRESS, OBTUNDED. ABLE TO RESPONDS PHYSICAL STIMULI. IN NO ACUTE DISTRESS NOTED. RECHECKED BS: 81 MG AT THIS TIME. RESPIRATORY EVEN AND UNLABORED ON TRACH WITH VENTILATOR. SKIN IS WARM TO TOUCH, KEEP CLEAN/DRY. PATIENT ON TUBE FEEDING, KEPT ELEVATED HOB FOR ENSURE AIRWAY AND ASPIRATION PRECAUTION, ALSO LOWEST POSITION OF THE BED, S/R UP X 2, BED ALARM IS ON AT ALL THE TIMES. ALL SAFETY PRECAUTION APPLIED. CALL LIGHT WITHIN REACH, WILL CONTINUE TO MONITOR.
[2021-11-16 08:16] LABS: BASOPHILS % (AUTO) 0.3 % (0.0-2.0); EOSINOPHILS % (AUTO) 0.9 % (0.0-6.0); HEMATOCRIT 28 % (39-51); HEMOGLOBIN 9.3 g/dL (13.5-17.5); LYMPHOCYTES # (AUTO) 1.6 K/uL (0.8-4.8); LYMPHOCYTES % (AUTO) 24.4 % (20.0-44.0); MEAN CORPUSCULAR HGB CONC 33 g/dl (31.0-36.0); MEAN CORPUSCULAR VOLUME 96 fL (80-96); MONOCYTES # (AUTO) 1.4 K/uL (0.1-1.30); NEUTROPHILS # (AUTO) 3.5 K/uL (1.8-8.9); NEUTROPHILS % (AUTO) 53.4 % (43.0-81.0); PLATELET COUNT (AUTO) 102 K/uL (150-450); RED BLOOD CELL COUNT(AUTO) 2.95 MIL/uL (4.5-6.0); WHITE BLOOD COUNT (AUTO) 6.5 K/uL (4.3-11.0)
[2021-11-16 08:34] LABS: CALCIUM, SERUM 10.6 mg/dL (8.5-10.1); CREATININE 3.4 mg/dL (0.6-1.3); MAGNESIUM 1.6 mg/dL (1.8-2.4)
[2021-11-16] MEDS: ARGININE/GLUTAMINE/CALCIUM BMB 1 EACH POWD.PACK GT SCH ×2 (08:34→17:45)
[2021-11-16] MEDS: MULTIVITAMINS,THERAGRAN 1 UDTAB TABLET GT SCH (08:34)
[2021-11-16] MEDS: CHLORHEXIDINE GLUCONATE 15 ML UDC MM SCH ×2 (08:34→21:36)
[2021-11-16] MEDS: VALPROIC ACID 250 MG/5 ML UDC GT SCH ×3 (08:34→17:44)
[2021-11-16] MEDS: ZINC SULFATE 220 MG CAPSULE GT SCH (08:34)
[2021-11-16] MEDS: PANTOPRAZOLE 40 MG/PACK PACK GT SCH (08:34)
[2021-11-16] MEDS: PROSOURCE / PROSTAT (PYXIS) 30 ML UDC GT SCH (08:34)
[2021-11-16] MEDS: FERROUS SULFATE UDC 300 MG/5 ML UDC GT SCH (08:35)
[2021-11-16] MEDS: DOCUSATE SODIUM LIQ 100 MG/10 ML UDC GT SCH (08:35)
[2021-11-16] MEDS: LEVETIRACETAM SOL (5 ML) 100 MG/ML UDC GT SCH ×2 (08:35→21:37)
[2021-11-16] MEDS: DAKINS QUARTER STRENGTH (0.125%) 480 ML BOTTLE TOP SCH (08:36)
[2021-11-16] MEDS: NEOMY SULF/BACITRAC ZN/POLY 15 GM TUBE TP SCH (08:36)
[2021-11-16] MEDS: THERAHONEY GEL 1.5 OZ TUBE TP SCH (08:37)
[2021-11-16] MEDS: LACOSAMIDE 50 MG TABLET PO SCH ×2 (08:39→21:40)
[2021-11-16] MEDS: COLISTIMETHATE SODIUM IV SCH ×2 (09:51→21:39)
[2021-11-16] MEDS: NS 0.9% IV SCH ×2 (09:51→21:39)
--- NOTE | 2021-11-16 12:29 | NUR ---
BP- 98/63, P-81, WILL HOLD BP METOPROLOL.
[2021-11-16] MEDS: ASCORBIC ACID 500 MG TABLET GT SCH (17:44)
--- NOTE | 2021-11-16 20:12 | NUR ---
MS/TELE/RN PATIENT APPEARS SLEEPING, ON MECHANICAL VENTILATOR, NO SIGNS OF DISTRESS NOTED, WILL MONITOR.
[2021-11-16] MEDS: SENNOSIDES 8.6 MG TABLET GT SCH (21:40)
[2021-11-17 00:03] VITALS: BP 115/67
[2021-11-17] MEDS ORDERED: KEY,NONCONTROL,TO KEEP IN PYXI 1 EA MC ONE (00:45)
[2021-11-17] MEDS: AMPICILLIN 1 GM in IV NS 0.9% 50 ML IV SCH ×4 (00:55→18:26)
[2021-11-17] MEDS: BLOOD SUGAR DIAGNOSTIC 1 EACH STRIP IN SCH ×4 (00:55→18:44)
[2021-11-17] MEDS: METOPROLOL TARTRATE 50 MG TABLET GT SCH ×4 (00:58→17:18)
[2021-11-17] MEDS: GLUCERNA 1.2 1,000 ML BOTTLE NG PRN (01:09)
--- NOTE | 2021-11-17 01:10 | NUR ---
MS/TELE/RN GASTRIC RESIDUAL =0, RESTARTED FEEDING OF GLUCERNA AT SLOW RATE OF 30 MLS/HR TO PREVENT VOMITING. WILL CONTINUE TO MONITOR.
[2021-11-17] MEDS: IV D5/0.45 NACL 1,000 ML IV PRN ×2 (01:19→18:45)
[2021-11-17] MEDS: SULFAMETHOXAZOLE/TRIMETHOPRIM 10 ML in IV D5W 250 ML IV SCH ×3 (01:33→16:34)
[2021-11-17 04:00] VITALS: BP 121/75
[2021-11-17] MEDS: BACLOFEN (10 MG) 10 MG TABLET GT SCH ×3 (05:38→23:14)
--- NOTE | 2021-11-17 06:19 | NUR ---
MS/TELE/RN PATIENT AWAKE, APPEARS COMFORTABLE, NO SIGNS OF DISTRESS NOTED, MECHANICAL VENTILATOR, AT 0300, RESIDUAL >60 MLS TUBE FEEDING WAS CLAMPED TO PREVENT VOMITING, REPOSITIONED TO COMFORT THE WHOLE SHIFT, ALL NEEDS ATTENDED AT THIS TIME, WILL CONTINUE TO MONITOR.
--- NOTE | 2021-11-17 08:09 | NUR ---
RN OPENING NOTE RECEIVED PATIENT SLEEPING IN BED WITH AIR MATTRESS, OBTUNDED. ABLE TO RESPONDS PHYSICAL STIMULI. IN NO ACUTE DISTRESS NOTED. RESPIRATORY EVEN AND UNLABORED ON TRACH WITH VENTILATOR. SKIN IS WARM TO TOUCH, KEEP CLEAN/DRY. PATIENT ON TUBE FEEDING, KEPT ELEVATED HOB FOR ENSURE AIRWAY AND ASPIRATION PRECAUTION, ALSO LOWEST POSITION OF THE BED, S/R UP X 2, BED ALARM IS ON AT ALL THE TIMES. ALL SAFETY PRECAUTION APPLIED. CALL LIGHT WITHIN REACH, WILL CONTINUE TO MONITOR FOR JENNY.
[2021-11-17] MEDS: PROSOURCE / PROSTAT (PYXIS) 30 ML UDC GT SCH (08:53)
[2021-11-17] MEDS: VALPROIC ACID 250 MG/5 ML UDC GT SCH ×3 (08:53→16:35)
[2021-11-17] MEDS: LEVETIRACETAM SOL (5 ML) 100 MG/ML UDC GT SCH ×2 (08:53→23:13)
[2021-11-17] MEDS: FERROUS SULFATE UDC 300 MG/5 ML UDC GT SCH (08:53)
[2021-11-17] MEDS: ARGININE/GLUTAMINE/CALCIUM BMB 1 EACH POWD.PACK GT SCH ×2 (08:53→16:34)
[2021-11-17] MEDS: DOCUSATE SODIUM LIQ 100 MG/10 ML UDC GT SCH (08:53)
[2021-11-17] MEDS: MULTIVITAMINS,THERAGRAN 1 UDTAB TABLET GT SCH (08:54)
[2021-11-17] MEDS: PANTOPRAZOLE 40 MG/PACK PACK GT SCH (08:54)
[2021-11-17] MEDS: CHLORHEXIDINE GLUCONATE 15 ML UDC MM SCH ×2 (08:54→23:13)
[2021-11-17] MEDS: ZINC SULFATE 220 MG CAPSULE GT SCH (08:54)
[2021-11-17] MEDS: THERAHONEY GEL 1.5 OZ TUBE TP SCH (08:55)
[2021-11-17] MEDS: DAKINS QUARTER STRENGTH (0.125%) 480 ML BOTTLE TOP SCH (08:55)
[2021-11-17] MEDS: NEOMY SULF/BACITRAC ZN/POLY 15 GM TUBE TP SCH (08:55)
[2021-11-17] MEDS: NS 0.9% IV SCH ×2 (10:15→22:08)
[2021-11-17] MEDS: COLISTIMETHATE SODIUM IV SCH ×2 (10:15→22:08)
[2021-11-17] MEDS: LACOSAMIDE 50 MG TABLET PO SCH ×2 (11:33→23:14)
[2021-11-17 12:03] LABS: ALBUMIN 1.6 g/dL (3.4-5.0); BILIRUBIN,TOTAL 0.1 mg/dL (0.2-1.0); CALCIUM, SERUM 9.8 mg/dL (8.5-10.1); CREATININE 3.9 mg/dL (0.6-1.3); POTASSIUM 3.1 mmol/L (3.5-5.1); TOTAL PROTEIN, SERUM 7.5 g/dL (6.4-8.2)
[2021-11-17] MEDS: ONDANSETRON HCL/PF 4 MG/2 ML VIAL IVP PRN (16:34)
[2021-11-17] MEDS: ASCORBIC ACID 500 MG TABLET GT SCH (18:23)
--- NOTE | 2021-11-17 19:30 | NUR ---
MAINTENANCE WORKER NOTES PT IN BED, SLEEPS INTERMITTENTLY, NOT IN DISTRESS, WITH EPISODE OF VOMITING, KEPT HOB ELEVATED, ZOFRAN GIVEN ORDERED, PM MEDS GIVEN, IV FLUIDS INFUSING WELL, REPOSITIONED FOR COMFORT, KEPT WARM AND COMFORTABLE IN BED.
[2021-11-17 20:00] VITALS: BP 110/74
--- NOTE | 2021-11-17 22:32 | NUR ---
MS/TELE/RN UNABLE TO OBTAIN TEMP ORALLY, RECTAL TEMP 90.3, NOTIFIED DIOGENES WHITLEY DNP, OBTAINED ORDER FOR ODILON KIMBLE. ODILON KIMBLE APPLIED, WILL MONITOR TEMP.
[2021-11-17] MEDS: SENNOSIDES 8.6 MG TABLET GT SCH (23:13)
[2021-11-18] VITALS (10 sets, daily range): BP systolic 83–150; BP diastolic 46–91
[2021-11-18] MEDS: AMPICILLIN 1 GM in IV NS 0.9% 50 ML IV SCH ×2 (00:17→05:47)
[2021-11-18] MEDS: BLOOD SUGAR DIAGNOSTIC 1 EACH STRIP IN SCH ×5 (00:29→23:13)
[2021-11-18] MEDS: METOPROLOL TARTRATE 50 MG TABLET GT SCH ×5 (00:35→23:13)
[2021-11-18] MEDS: SULFAMETHOXAZOLE/TRIMETHOPRIM 10 ML in IV D5W 250 ML IV SCH ×3 (00:58→16:19)
[2021-11-18] MEDS: BACLOFEN (10 MG) 10 MG TABLET GT SCH ×3 (06:16→20:53)
[2021-11-18] MEDS: DEXTROSE 50%-WATER 50 ML DISP.SYRIN IV PRN ×3 (06:44→19:10)
--- NOTE | 2021-11-18 07:28 | NUR ---
RN MED SURG OPENING NOTE RECEIVED PATIENT IN BED, PATIENT IS OBTUNDED. RESPONDS TO LOUD CALL OR PHYSICAL STIMULI. WITH TRACH ON VENTILATOR, NO RESPIRATORY DISTRESS NOTED, SATURATING AT 92-95%. PATIENT WITH G-TUBE, FEEDING ON HOLD BECAUSE OF EPISODES OF VOMITING YESTERDAY. NOTED 250ML COFFEE GROUND RESIDUAL. KEPT HOB ELEVATED AT ALL TIMES. SAFETY MEASURES ENSURED WITH BED ON LOWEST LOCKED POSITION OF THE BED, S/R UP X 2, BED ALARM IS ON AT ALL THE TIMES. CALL LIGHT WITHIN REACH. WITH CONDOM CATHETER TO URINE BAG. COMFORT MEASURES PROVIDED.
[2021-11-18 07:29] LABS: BASOPHILS % (AUTO) 0.2 % (0.0-2.0); EOSINOPHILS % (AUTO) 3.4 % (0.0-6.0); HEMATOCRIT 23 % (39-51); HEMOGLOBIN 7.7 g/dL (13.5-17.5); LYMPHOCYTES # (AUTO) 1.1 K/uL (0.8-4.8); LYMPHOCYTES % (AUTO) 23.9 % (20.0-44.0); MEAN CORPUSCULAR HGB CONC 34 g/dl (31.0-36.0); MEAN CORPUSCULAR VOLUME 95 fL (80-96); MONOCYTES # (AUTO) 0.7 K/uL (0.1-1.30); MONOCYTES % (AUTO) 15.8 % (2.0-12.0); NEUTROPHILS # (AUTO) 2.7 K/uL (1.8-8.9); NEUTROPHILS % (AUTO) 56.7 % (43.0-81.0); PLATELET COUNT (AUTO) 80 K/uL (150-450); RED BLOOD CELL COUNT(AUTO) 2.42 MIL/uL (4.5-6.0); WHITE BLOOD COUNT (AUTO) 4.7 K/uL (4.3-11.0)
[2021-11-18 07:42] LABS: CALCIUM, SERUM 9.4 mg/dL (8.5-10.1); CREATININE 4.3 mg/dL (0.6-1.3); MAGNESIUM 1.4 mg/dL (1.8-2.4); PHOSPHORUS 6.6 mg/dL (2.5-4.9)
[2021-11-18 07:52] LABS: POTASSIUM 2.8 mmol/L (3.5-5.1)
[2021-11-18] MEDS: GLUCERNA 1.2 1,000 ML BOTTLE NG PRN (08:10)
[2021-11-18] MEDS: IV D5/0.45 NACL 1,000 ML IV PRN (08:11)
[2021-11-18] MEDS: CHLORHEXIDINE GLUCONATE 15 ML UDC MM SCH ×2 (09:27→20:53)
[2021-11-18] MEDS: ZINC SULFATE 220 MG CAPSULE GT SCH (09:28)
[2021-11-18] MEDS: PANTOPRAZOLE 40 MG/PACK PACK GT SCH (09:28)
[2021-11-18] MEDS: DOCUSATE SODIUM LIQ 100 MG/10 ML UDC GT SCH (09:28)
[2021-11-18] MEDS: VALPROIC ACID 250 MG/5 ML UDC GT SCH ×3 (09:28→18:48)
[2021-11-18] MEDS: FERROUS SULFATE UDC 300 MG/5 ML UDC GT SCH (09:28)
[2021-11-18] MEDS: LEVETIRACETAM SOL (5 ML) 100 MG/ML UDC GT SCH ×2 (09:28→20:53)
[2021-11-18] MEDS: MULTIVITAMINS,THERAGRAN 1 UDTAB TABLET GT SCH (09:28)
[2021-11-18] MEDS: LACOSAMIDE 50 MG TABLET PO SCH ×2 (09:29→20:53)
[2021-11-18] MEDS: ARGININE/GLUTAMINE/CALCIUM BMB 1 EACH POWD.PACK GT SCH ×2 (09:30→18:48)
[2021-11-18] MEDS: PROSOURCE / PROSTAT (PYXIS) 30 ML UDC GT SCH (09:30)
[2021-11-18] MEDS: DAKINS QUARTER STRENGTH (0.125%) 480 ML BOTTLE TOP SCH (09:39)
[2021-11-18] MEDS: NEOMY SULF/BACITRAC ZN/POLY 15 GM TUBE TP SCH (09:40)
[2021-11-18] MEDS: THERAHONEY GEL 1.5 OZ TUBE TP SCH (09:40)
[2021-11-18] MEDS: COLISTIMETHATE SODIUM IV SCH ×2 (10:26→20:38)
[2021-11-18] MEDS: NS 0.9% IV SCH ×2 (10:26→20:38)
[2021-11-18] MEDS: DAPTOMYCIN 500 MG in IV NS 0.9% 50 ML IV SCH (11:00)
--- NOTE | 2021-11-18 11:30 | NUR ---
DIRECTOR OF DISTRIBUTION NOTE MD ORDERED BLOOD TRANSFUSION OF 1 UNIT PRBC. VERBAL CONSENT SECURED FROM MOTHER BART OVER THE PHONE WITNESSED BY ANOTHER NURSE. `
[2021-11-18] MEDS ORDERED: AMPICILLIN 2 GM in IV NS 0.9% 50 ML IV SCH (12:00)
[2021-11-18] MEDS: POTASSIUM CHLORIDE 10 MEQ/50 ML PREMIXED IVPB FOR PERIPHERAL LINE IV SCH ×4 (12:12→15:23)
[2021-11-18] MEDS ORDERED: IV NS 0.9% 1,000 ML IV PRN (12:30)
[2021-11-18] MEDS: PANTOPRAZOLE 40 MG VIAL IV SCH ×2 (12:34→18:48)
[2021-11-18] MEDS ORDERED: Potassium Chloride 20 MEQ in IV NS 0.9% 1,000 ML IV SCH (13:00)
[2021-11-18] MEDS ORDERED: Potassium Chloride 20 MEQ in IV D5/0.45 NACL 1,000 ML IV ONE (13:30)
[2021-11-18] MEDS: AMPICILLIN 2 GM in IV NS 0.9% 100 ML IV SCH ×3 (14:10→23:01)
--- NOTE | 2021-11-18 16:03 | NUR ---
TOBACCO DRIER OPERATOR NOTE ENDORSED PATIENT FOR CONTINUITY OF CARE. STILL WITH ONGOING 1 UNIT PRBC. TOLERATED WELL. IN STABLE CONDITION.
--- NOTE | 2021-11-18 16:30 | NUR ---
ms rn received report from Myrna, patient on bed, wil ongoing blood transfusion, vitals stable, will monitor patient.
--- NOTE | 2021-11-18 18:00 | NUR ---
ms bradshaw bs -58- d50 iv given, will recheck later.
[2021-11-18] MEDS: ASCORBIC ACID 500 MG TABLET GT SCH (18:48)
--- NOTE | 2021-11-18 19:17 | NUR ---
ms rn on bed, vitals stable,will endorsed to warehouse worker 2nd shift for continuityt of care.
--- NOTE | 2021-11-18 19:37 | NUR ---
ms rn bs -189-no coverage given, endorsed to material handler 1st shift.
--- NOTE | 2021-11-18 20:00 | NUR ---
RECEIVED PATIENT IN BED, VENTILATOR DEPENDENT, NO RESPIRATORY DISTRESS, SPO2 100%, HR IN THE 60S, NOT IN APPARENT PAIN, OBTUNDED, PEG TUBE FEEDING CLAMPED, EYAL MIDLINE, POST PRBC 1 UNIT, BP LOW, HYPOGLYCEMIC, WAS GIVEN D50 IV BY AM NURSE. ODILON KIMBLE IN PLACE, CONDOM CATH, WILL CONTINUE TO MONITOR.
[2021-11-18 20:28] LABS: HEMOGLOBIN 9.1 g/dL (13.5-17.5)
[2021-11-18] MEDS: SENNOSIDES 8.6 MG TABLET GT SCH (21:28)
[2021-11-18] MEDS: INSULIN REGULAR, HUMAN 100 UNIT/ML 3 ML VIAL SQ PRN (23:14)
--- NOTE | 2021-11-18 23:30 | NUR ---
NOTIFY GLOBAL MOBILITY SPECIALIST GUTIERREZ VS 83/46 HR 61, PATIENT DNR, CURRENTLY ON D5 1/2 NS + KCL 20 MEQ AT 75 ML/HR, S/P PRBC 1 UNIT, HGB 9.1
[2021-11-19] VITALS (10 sets, daily range): BP systolic 96–124; BP diastolic 47–80
[2021-11-19] MEDS ORDERED: IV NS 0.9% 500 ML IV ONE
[2021-11-19] MEDS: SULFAMETHOXAZOLE/TRIMETHOPRIM 10 ML in IV D5W 250 ML IV SCH ×3 (00:14→16:14)
[2021-11-19] MEDS: DEXTROSE 50%-WATER 50 ML DISP.SYRIN IV PRN ×3 (01:05→23:48)
--- NOTE | 2021-11-19 01:11 | NUR ---
GIVEN D50, BG 76 THEN RECHECKED ABOUT ONE HOUR, BG 65, TRENDING DOWN
--- NOTE | 2021-11-19 02:04 | NUR ---
RECHECKED BG AFTER D50, 150 MG/DL, WILL CONTINUE TO MONITOR
--- NOTE | 2021-11-19 02:14 | NUR ---
AFTER NS 500 ML BOLUS VS 101/57 HR 63
[2021-11-19 04:08] LABS: BASOPHILS % (AUTO) 0.5 % (0.0-2.0); EOSINOPHILS % (AUTO) 2.3 % (0.0-6.0); HEMATOCRIT 23 % (39-51); HEMOGLOBIN 7.6 g/dL (13.5-17.5); LYMPHOCYTES # (AUTO) 1.6 K/uL (0.8-4.8); LYMPHOCYTES % (AUTO) 25.9 % (20.0-44.0); MEAN CORPUSCULAR HGB CONC 33 g/dl (31.0-36.0); MEAN CORPUSCULAR VOLUME 94 fL (80-96); MONOCYTES # (AUTO) 0.3 K/uL (0.1-1.30); NEUTROPHILS # (AUTO) 4.1 K/uL (1.8-8.9); NEUTROPHILS % (AUTO) 66.3 % (43.0-81.0); RED BLOOD CELL COUNT(AUTO) 2.44 MIL/uL (4.5-6.0); WHITE BLOOD COUNT (AUTO) 6.1 K/uL (4.3-11.0)
[2021-11-19 04:23] LABS: PLATELET COUNT (AUTO) 47 K/uL (150-450)
[2021-11-19 04:27] LABS: CALCIUM, SERUM 8.4 mg/dL (8.5-10.1); CREATININE 4.4 mg/dL (0.6-1.3); MAGNESIUM 1.3 mg/dL (1.8-2.4); PHOSPHORUS 6.4 mg/dL (2.5-4.9); POTASSIUM 3.8 mmol/L (3.5-5.1)
[2021-11-19] MEDS: BACLOFEN (10 MG) 10 MG TABLET GT SCH ×3 (04:53→21:30)
[2021-11-19] MEDS: METOPROLOL TARTRATE 50 MG TABLET GT SCH ×4 (05:09→23:40)
[2021-11-19] MEDS: AMPICILLIN 2 GM in IV NS 0.9% 100 ML IV SCH ×4 (05:10→23:40)
[2021-11-19] MEDS: BLOOD SUGAR DIAGNOSTIC 1 EACH STRIP IN SCH ×4 (05:23→23:40)
[2021-11-19] MEDS: INSULIN REGULAR, HUMAN 100 UNIT/ML 3 ML VIAL SQ PRN (05:24)
--- NOTE | 2021-11-19 05:24 | NUR ---
NOTIFIED IVÁN WHITLEY OF HGB 7.6 AND PLATELET 47
--- NOTE | 2021-11-19 05:42 | NUR ---
BG 104, INSULIN GIVEN, METOPROLOL ALSO HELD, CONTINUE RESPIRATORY SUPPORT, COOLING MEASURES, H/H Q8HRS.
--- NOTE | 2021-11-19 07:20 | NUR ---
WIRE COMMUNICATIONS ENGINEER OPENING NOTE RECEIVED PATIENT IN BED, OBTUNDED. RESPONDS TO PHYSICAL STIMULI. WITH TRACH ON VENTILATOR, WITH NO RESPIRATORY DISTRESS NOTED, SATURATING AT 92-95%. PATIENT WITH G-TUBE. WITH EYAL MIDLINE, WITH IVF OF D5 1/2 NS PLUS 20MEQ KCL RUNNING AT 75ML/HR, INFUSING WELL. WITH LEFT HAND G22, ON SALINE LOCK, PATENT AND INTACT. KEPT HOB ELEVATED AT ALL TIMES. SAFETY MEASURES ENSURED WITH BED ON LOWEST LOCKED POSITION OF THE BED, S/R UP X 2, BED ALARM IS ON AT ALL THE TIMES. CALL LIGHT WITHIN REACH. WITH CONDOM CATHETER TO URINE BAG. COMFORT MEASURES PROVIDED.
[2021-11-19] MEDS: PROSOURCE / PROSTAT (PYXIS) 30 ML UDC GT SCH (09:00)
[2021-11-19] MEDS: ARGININE/GLUTAMINE/CALCIUM BMB 1 EACH POWD.PACK GT SCH ×2 (09:00→16:15)
[2021-11-19] MEDS: LEVETIRACETAM SOL (5 ML) 100 MG/ML UDC GT SCH ×2 (09:48→21:30)
[2021-11-19] MEDS: DOCUSATE SODIUM LIQ 100 MG/10 ML UDC GT SCH (09:48)
[2021-11-19] MEDS: FERROUS SULFATE UDC 300 MG/5 ML UDC GT SCH (09:48)
[2021-11-19] MEDS: CHLORHEXIDINE GLUCONATE 15 ML UDC MM SCH ×2 (09:48→21:31)
[2021-11-19] MEDS: LACOSAMIDE 50 MG TABLET PO SCH ×2 (09:49→21:37)
[2021-11-19] MEDS: MULTIVITAMINS,THERAGRAN 1 UDTAB TABLET GT SCH (09:49)
[2021-11-19] MEDS: ZINC SULFATE 220 MG CAPSULE GT SCH (09:49)
[2021-11-19] MEDS: PANTOPRAZOLE 40 MG VIAL IV SCH ×2 (09:49→17:50)
[2021-11-19] MEDS: VALPROIC ACID 250 MG/5 ML UDC GT SCH ×3 (09:49→17:51)
[2021-11-19] MEDS: COLISTIMETHATE SODIUM IV SCH ×2 (09:51→21:39)
[2021-11-19] MEDS: NS 0.9% IV SCH ×2 (09:51→21:39)
[2021-11-19] MEDS: DAKINS QUARTER STRENGTH (0.125%) 480 ML BOTTLE TOP SCH (11:03)
[2021-11-19] MEDS: NEOMY SULF/BACITRAC ZN/POLY 15 GM TUBE TP SCH (11:04)
[2021-11-19] MEDS: THERAHONEY GEL 1.5 OZ TUBE TP SCH (11:04)
--- NOTE | 2021-11-19 11:35 | NUR ---
MANAGER OF PROGRAM NOTE PATIENT SEEN BY DR. ALEGRE. NOTIFIED OF STILL DARK COLORED/ COFFEE GROUND APPEARANCE OF G-TUBE RESIDUAL CONTENT, LOW BODY TEMP, LABORATORY RESULTS AND NURSING INTERVENTIONS.
--- NOTE | 2021-11-19 13:20 | NUR ---
SPECIAL EDUCATION INCLUSION TEACHER NOTE SPOKE WITH PATIENT'S MOTHER BART [phone] AND GAVE UPDATES REGARDING PATIENT'S CONDITION (HYPOTHERMIA, COFFEE GROUND/ DARK COLORED G-TUBE RESIDUAL, LOW HG LEVEL, ETC). MOTHER IS SCHEDULED TO INFORM FACILITY OF HER DECISION TO EXTUBATE TOMORROW. PATIENT REMAINS DNR. WHEN ASKED IF SHE WANTS TO TRANSFUSE AGAIN IF HG DROPS, SHE SAID SHE WILL CALL LATER AND SAY IF SHE WILL AGREE. COMFORT MEASURES PROVIDED.
[2021-11-19 13:30] LABS: HEMOGLOBIN 6.9 g/dL (13.5-17.5)
[2021-11-19] MEDS ORDERED: Magnesium 1GM/D5W 100ML PREMIX PIGGYBACK IV SCH (13:30)
--- NOTE | 2021-11-19 14:00 | NUR ---
BILLBOARD MECHANIC NOTE LATEST H AND H IS 6.9 AND 20. MD NOTIFIED WITH STANDING ORDER FOR BLOOD TRANSFUSION. PATIENT'S MOTHER BART NOTIFIED OF BLOOD TRANSFUSION ORDER. VERBALIZED AGREEMENT AND WANTS TO PUSH THROUGH WITH THE TRANSFUSION. COMFORT MEASURES PROVIDED.
[2021-11-19] MEDS: Magnesium 1GM/D5W 100ML PREMIX 100 ML IV SCH ×2 (14:50→15:46)
--- NOTE | 2021-11-19 15:49 | NUR ---
RESEARCH MANAGER NOTE FOLLOW UP MADE WITH BLOOD BANK REGARDING BLOOD. PER TRIAL JUSTICE CHETNA, SHE IS STILL WORKING ON THE BLOOD. PATIENT KEPT IN COMFORTABLE POSITION.
[2021-11-19] MEDS: ASCORBIC ACID 500 MG TABLET GT SCH (17:51)
--- NOTE | 2021-11-19 18:18 | NUR ---
TABLE MAKER NOTE LATEST TEMPERATURE IS 100.2. ODILON KIMBLE STOPPED. LATEST BS 124. TEPID SPONGE BATH DONE. WILL RECHECK FOR BLOOD TRANSFUSION.
--- NOTE | 2021-11-19 18:54 | NUR ---
UNIFORMS SALES REPRESENTATIVE CLOSING NOTE PATIENT IN BED, OBTUNDED. RESPONDS TO PHYSICAL STIMULI AND LOUD SOUND. WITH TRACH ON VENTILATOR, WITH NO RESPIRATORY DISTRESS NOTED, SATURATING AT 92-100%. PATIENT WITH G-TUBE FEEDING ON HOLD, STILL WITH DARK COLORED GASTRIC CONTENT, MD AND FAMILY AWARE. WITH EYAL MIDLINE, WITH IVF OF D5 1/2 NS RUNNING AT 75ML/HR, INFUSING WELL. WITH LEFT HAND G22, ON SALINE LOCK, PATENT AND INTACT. KEPT HOB ELEVATED AT ALL TIMES. SAFETY MEASURES ENSURED WITH BED ON LOWEST LOCKED POSITION OF THE BED, S/R UP X 2, BED ALARM IS ON AT ALL THE TIMES. CALL LIGHT WITHIN REACH. WITH CONDOM CATHETER TO URINE BAG. PATIENT FOR BLOOD TRANSFUSION BUT LATEST TEMPERATURE IS 100.3. COMFORT MEASURES PROVIDED. SPOKE WITH MOTHER BART, AND UPDATED OF PATIENT'S CONDITION. VERBALIZED UNDERSTANDING. PER MOTHER, SHE IS NOT READY TO MAKE DECISION TOMORROW YET. SHE SAID THAT SHE WOULD PROBABLY BE READY BY SATURDAY. ENDORSED TO NEXT SHIFT FOR CONTINUITY.
--- NOTE | 2021-11-19 19:30 | NUR ---
TELE/RN OPENING NOTE RECEIVED PATIENT RESTING IN BED. OBTUNDED AT BASELINE. NO S/SX OF PAIN NOTED AT THIS TIME. CONTINUES ON MECHANICAL VENT WITH NO S/SX OF RESPIRATORY DISTRESS NOTED. IV ACCESS TO RIGHT UPPER ARM MIDLINE #18G AND LEFT HAND #22G BOTH INTACT AND PATENT. CONTINUES ON IVF D5 1/2 NS @ 75ML/HR. CONTINUES ON IV ABX. CONTINUES WITH ROUTINE H20 FLUSHES TO GTUBE. CONTINUES ON NPO STATUS. CONDOM CATH IN PLACE DRAINING CLEAR, YELLOW URINE TO GRAVITY. ASPIRATION, FALL AND SAFETY PRECAUTIONS MAINTAINED. ALL NEEDS ATTENDED TO AT THIS TIME.
--- NOTE | 2021-11-19 20:00 | NUR ---
TELE/RN NOTE PATIENTS TEMP DOWN TO 99.0. WILL OBTAIN RBC FROM LAB AND START ADMINISTRATION. CONSENT IN CHART.
--- NOTE | 2021-11-19 20:30 | NUR ---
TELE/RN NOTE PRBC STARTED TO RIGHT UPPER ARM MIDLINE @ 75ML/HR. VERIFIED WITH SECOND RN RIKI. NO S/SX OF ADVERSE REACTIONS. CONTINUES WITH IVF D5 1/2 NS @ 75ML/HR TO LEFT HAND IV SITE.
--- NOTE | 2021-11-19 21:30 | NUR ---
TELE/RN NOTE PATIENT HAD EPISODE OF EMESIS. PATIENT SUCTIONED AND CLEANED. ADLS PERFORMED. CONTINUES ON PRBC WITH NO ADVERSE REACTIONS NOTED. CURRENT VITALS: TEMP 98.0 BP 103/51 HR 85 RR 16 O2 SAT 94% ON MECHANICAL VENT.
[2021-11-19] MEDS: SENNOSIDES 8.6 MG TABLET GT SCH (21:31)
[2021-11-19] MEDS: IV D5/0.45 NACL 1,000 ML IV PRN (21:53)
[2021-11-19 21:56] LABS: BAND % (MANUAL) 3 % (0.0-5.0); LYMPHOCYTES % (MANUAL) 22 % (16-48); MONOCYTES % (MANUAL) 7 % (0-11.0); NEUTROPHILS % (MANUAL) 68 (42-76)
[2021-11-19 23:06] LABS: BILIRUBIN,URINE NEGATIVE (NEGATIVE); COLOR,URINE YELLOW (YELLOW); LEUKOCYTE ESTERASE ,URINE TRACE (NEGATIVE); NITRITE, URINE NEGATIVE (NEGATIVE); PROTEIN,URINE 30 mg/dl (NEGATIVE); UGLUCOSE NEGATIVE (NEGATIVE); UROBILINOGEN,URINE 0.2 EU/dL (0.2)
--- NOTE | 2021-11-19 23:30 | NUR ---
TELE/RN NOTE PATIENT COMPLETED PRBC TRANSFUSION. NO S/SX OF ADVERSE REACTIONS NOTED. PATIENT HAS ROUTINE H/H LAB DRAW Q6HR. NEXT LAB DRAW AT APPROX. 0100.
[2021-11-19 23:38] LABS: BACTERIA,URINE Few /HPF (None Seen); SQUAMOUS EPITHELIAL CELL,UR Few /HPF (None Seen); YEAST,URINE Many /HPF (None Seen)
--- NOTE | 2021-11-19 23:50 | NUR ---
TELE/RN NOTE PATIENTS BLOOD SUGAR IS 18. CONTINUES ON CLAMPED GT D/T GI BLEED. CONTINUES ON IVF D5 1/2 NS @ 75ML/HR. INITIATED D50% IVP. WILL RECHECK BLOOD SUGAR.
[2021-11-20] VITALS (10 sets, daily range): BP systolic 70–101; BP diastolic 39–54
[2021-11-20] MEDS: SULFAMETHOXAZOLE/TRIMETHOPRIM 10 ML in IV D5W 250 ML IV SCH ×3 (00:13→16:47)
[2021-11-20 03:44] LABS: HEMOGLOBIN 8.3 g/dL (13.5-17.5)
[2021-11-20] MEDS: DEXTROSE 50%-WATER 50 ML DISP.SYRIN IV PRN (05:23)
--- NOTE | 2021-11-20 05:30 | NUR ---
TELE/RN NOTE PATIENTS BLOOD SUGAR THIS AM IS 24. INITIATED PROTOCOL. ADMINISTERED D50% VIA IVP. WILL RECHECK BLOOD SUGAR.
[2021-11-20] MEDS: BACLOFEN (10 MG) 10 MG TABLET GT SCH ×3 (05:51→22:24)
[2021-11-20] MEDS: METOPROLOL TARTRATE 50 MG TABLET GT SCH ×3 (05:51→18:00)
[2021-11-20] MEDS: AMPICILLIN 2 GM in IV NS 0.9% 100 ML IV SCH ×3 (05:52→18:21)
[2021-11-20] MEDS: BLOOD SUGAR DIAGNOSTIC 1 EACH STRIP IN SCH ×3 (05:52→17:20)
--- NOTE | 2021-11-20 05:55 | NUR ---
TELE/RN NOTE BLOOD SUGAR RECHECK IS 125.
--- NOTE | 2021-11-20 06:45 | NUR ---
MS/RN CLOSING NOTE PATIENT CURRENTLY RESTING IN BED. OBTUNDED AT BASELINE. NO S/SX OF PAIN NOTED AT THIS TIME. CONTINUES ON MECHANICAL VENT WITH NO S/SX OF RESPIRATORY DISTRESS NOTED. IV ACCESS TO RIGHT UPPER ARM MIDLINE #18G AND LEFT HAND #22G BOTH INTACT AND PATENT. CONTINUES ON IVF D5 1/2 NS @ 75ML/HR. CONTINUES ON IV ABX. CONTINUES ON NPO STATUS. CONDOM CATH IN PLACE DRAINING CLEAR, YELLOW URINE TO GRAVITY. TOTAL OUTPUT IS 1400CC THIS SHIFT. ASPIRATION, FALL AND SAFETY PRECAUTIONS MAINTAINED. WILL ENDORSE PLAN OF CARE TO ONCOMING SHIFT RN.
--- NOTE | 2021-11-20 07:39 | NUR ---
TESTING LEAD OPENING NOTES: PATIENT IN BED ASLEEP, EASY TO AROUSE WITH STIMULI. OBTUNDED. NO SOB OR CARDIAC DISTRESS NOTED, PATIENT HOOKED TO [facility] VENT AND TOLERATING WELL. WITH G-TUBE NOTED, FEEDING ON HOLD, FAMILY AND MD AWARE. ON TRACK MAINTAINER ATTACHED WITH CURRENT READING OF SINUS CHRISTELLE HR 52BPM. NOTED WITH IV MIDLINE ON G#18 PATENT AND INTACT, WITH D5 1/2 NS @75ML/HR INFUSING WELL. SAFETY MEASURES MAINTAINED: BED LOCKED AND IN LOWEST POSITION, SIDE RAILS UP X2 AND CALL LIGHT WITHIN REACH. WILL KEEP MONITORING.
[2021-11-20] MEDS: MULTIVITAMINS,THERAGRAN 1 UDTAB TABLET GT SCH (08:21)
[2021-11-20] MEDS: VALPROIC ACID 250 MG/5 ML UDC GT SCH ×3 (08:21→16:49)
[2021-11-20] MEDS: LACOSAMIDE 50 MG TABLET PO SCH ×2 (08:21→22:24)
[2021-11-20] MEDS: DOCUSATE SODIUM LIQ 100 MG/10 ML UDC GT SCH (08:22)
[2021-11-20] MEDS: LEVETIRACETAM SOL (5 ML) 100 MG/ML UDC GT SCH ×2 (08:22→22:23)
[2021-11-20] MEDS: FERROUS SULFATE UDC 300 MG/5 ML UDC GT SCH (08:22)
[2021-11-20] MEDS: PANTOPRAZOLE 40 MG VIAL IV SCH ×2 (08:22→16:48)
[2021-11-20] MEDS: CHLORHEXIDINE GLUCONATE 15 ML UDC MM SCH ×2 (08:22→22:23)
[2021-11-20] MEDS: ZINC SULFATE 220 MG CAPSULE GT SCH (08:22)
[2021-11-20] MEDS: ARGININE/GLUTAMINE/CALCIUM BMB 1 EACH POWD.PACK GT SCH ×2 (08:23→16:49)
[2021-11-20] MEDS: PROSOURCE / PROSTAT (PYXIS) 30 ML UDC GT SCH (08:23)
[2021-11-20] MEDS: THERAHONEY GEL 1.5 OZ TUBE TP SCH (08:25)
[2021-11-20] MEDS: DAKINS QUARTER STRENGTH (0.125%) 480 ML BOTTLE TOP SCH (08:25)
[2021-11-20] MEDS: NEOMY SULF/BACITRAC ZN/POLY 15 GM TUBE TP SCH (08:26)
[2021-11-20] MEDS: COLISTIMETHATE SODIUM IV SCH ×2 (09:32→22:24)
[2021-11-20] MEDS: NS 0.9% IV SCH ×2 (09:32→22:24)
[2021-11-20 09:58] LABS: BASOPHILS # (AUTO) 0.1 K/uL (0.0-0.2); BASOPHILS % (AUTO) 0.6 % (0.0-2.0); EOSINOPHILS % (AUTO) 1.8 % (0.0-6.0); HEMATOCRIT 21 % (39-51); LYMPHOCYTES # (AUTO) 3.2 K/uL (0.8-4.8); LYMPHOCYTES % (AUTO) 34.2 % (20.0-44.0); MEAN CORPUSCULAR HGB CONC 34 g/dl (31.0-36.0); MEAN CORPUSCULAR VOLUME 93 fL (80-96); MONOCYTES # (AUTO) 0.7 K/uL (0.1-1.30); MONOCYTES % (AUTO) 7.3 % (2.0-12.0); NEUTROPHILS # (AUTO) 5.3 K/uL (1.8-8.9); NEUTROPHILS % (AUTO) 56.1 % (43.0-81.0); RED BLOOD CELL COUNT(AUTO) 2.22 MIL/uL (4.5-6.0); WHITE BLOOD COUNT (AUTO) 9.4 K/uL (4.3-11.0)
[2021-11-20 10:36] LABS: PLATELET COUNT (AUTO) 41 K/uL (150-450)
[2021-11-20 10:42] LABS: BAND % (MANUAL) 21 % (0.0-5.0); EOSINOPHILS % (MANUAL) 4 % (0-4); LYMPHOCYTES % (MANUAL) 31 % (16-48); METAMYELOCYTES % 4 % (0-0); MONOCYTES % (MANUAL) 5 % (0-11.0); MYELOCYTES % 4 % (0-0); NEUTROPHILS % (MANUAL) 31 (42-76)
[2021-11-20] MEDS: DAPTOMYCIN 500 MG in IV NS 0.9% 50 ML IV SCH (10:44)
--- NOTE | 2021-11-20 11:00 | NUR ---
RN NOTES: RECEIVED CALL FROM SHIRT LINE OPERATOR SOC, PLATELET LEVEL 41, HGB LEVEL 7.0. INFORMED DR GALLARDO, WITH NO NEW ORDER MADE AT THIS TIME. WILL CONTINUE TO MONITOR FOR SIGNIFICANT CHANGES.
[2021-11-20] MEDS: IV D5/0.45 NACL 1,000 ML IV PRN (11:31)
[2021-11-20] MEDS: INSULIN REGULAR, HUMAN 100 UNIT/ML 3 ML VIAL SQ PRN ×2 (11:50→17:20)
--- NOTE | 2021-11-20 16:59 | NUR ---
RN NOTES PT'S MOM BART, SISTER MEALNY AND OTHER FAMILY MEMBERS VISITED THIS AFTERNOON.
--- NOTE | 2021-11-20 18:05 | NUR ---
RN NOTES PT STARTED ON PRBC X1 (340ML) VIA EYAL MIDLINE AT 1801. V/S TAKEN AND RECORDED. WILL MONITOR FOR ANY ADVERSE/ALLERGIC REACTIONS.
[2021-11-20] MEDS: ASCORBIC ACID 500 MG TABLET GT SCH (18:17)
--- NOTE | 2021-11-20 18:19 | NUR ---
RN NOTES NO ALLERGIC OR ADVERSE REACTIONS NOTED AFTER 15 MINUTES OF STARTING BLOOD TRANSFUSION VIA EYAL MIDLINE. WILL CONTINUE TO MONITOR.
--- NOTE | 2021-11-20 19:04 | NUR ---
SHIPYARD PAINTER CLOSING NOTES: PATIENT IN BED AWAKE, OBTUNDED. NO SOB OR CARDIAC DISTRESS NOTED, PATIENT HOOKED TO [facility] VENT AND TOLERATING WELL. WITH G-TUBE NOTED, FEEDING ON HOLD, FAMILY AND MD AWARE. ON UNDERBASTER ATTACHED WITH CURRENT READING OF SINUS CHRISTELLE HR 45 BPM. ONGOING BLOOD TRANSFUSION VIA EYAL MIDLINE AND INFUSING WELL. ON IV FLUIDS ORDERED. SAFETY MEASURES MAINTAINED: BED LOCKED AND IN LOWEST POSITION, SIDE RAILS UP X3 AND CALL LIGHT WITHIN REACH. WILL KEEP MONITORING. WILL ENDORSE TO GIS CONSULTANT NURSE FOR CONTINUITY OF CARE.
--- NOTE | 2021-11-20 19:15 | NUR ---
RN OPENING NOTE PATIENT APPEARS AWAKE IN BED. OBTUNDED W/ EYE OPENING. NO S/S OF DISTRESS, BREATHING W/O DIFFICULTY ON VENT. EYAL MIDLINE INTACT AND PATENT CURRENTLY RUNNING BLOOD TRANSFUSION. TELE MONITOR REVEALS SB 44. SAFETY MEASURES IN PLACE: BED AT LOWEST POSITION, LOCKED, RAILS UP X2, CALL BELLA WITHIN REACH. WILL CONTINUE TO MONITOR PATIENT.
--- NOTE | 2021-11-20 21:20 | NUR ---
RN NOTE PATIENT'S MOTHER, BART RODRIGUEZ, CALLED UNIT. PROPERLY VERIFIED THROUGH STANDARD HIPAA PROTOCOL. ALL QUESTIONS ANSWERED. PATIENT REMAINS STABLE; WILL CONTINUE TO MONITOR PATIENT.
--- NOTE | 2021-11-20 21:50 | NUR ---
RN NOTE PATIENT FINISHED BLOOD TRANSFUSION. NO SIDE REACTIONS NOTED. ALL VS WNL AND WITHIN BASELINE. UPON FINISHING TRANSFUSION, ALL ITEMS RELATED TO BLOOD PRODUCTS DISPOSED OF PROPERLY IN HAZARDOUS WASTE BIN. PATIENT REMAINS STABLE; WILL CONTINUE TO MONITOR PATIENT.
[2021-11-20] MEDS: SENNOSIDES 8.6 MG TABLET GT SCH (22:24)
[2021-11-20 23:57] LABS: HEMOGLOBIN 9.9 g/dL (13.5-17.5)
[2021-11-21] VITALS: BP 75/39
[2021-11-21] MEDS: AMPICILLIN 2 GM in IV NS 0.9% 100 ML IV SCH ×3 (00:22→12:56)
[2021-11-21] MEDS: BLOOD SUGAR DIAGNOSTIC 1 EACH STRIP IN SCH ×3 (00:22→12:16)
[2021-11-21] MEDS: SULFAMETHOXAZOLE/TRIMETHOPRIM 10 ML in IV D5W 250 ML IV SCH ×2 (00:59→08:09)
[2021-11-21 04:00] VITALS: BP 64/36
[2021-11-21] MEDS: BACLOFEN (10 MG) 10 MG TABLET GT SCH ×2 (05:03→13:10)
[2021-11-21] MEDS: METOPROLOL TARTRATE 50 MG TABLET GT SCH ×3 (05:04→12:00)
[2021-11-21] MEDS: INSULIN REGULAR, HUMAN 100 UNIT/ML 3 ML VIAL SQ PRN (05:25)
--- NOTE | 2021-11-21 06:52 | NUR ---
RN CLOSING NOTE PATIENT ASLEEP IN BED. OBTUNDED W/ EYE OPENING. NO S/S OF DISTRESS; BREATHING W/O DIFFICULTY ON MECHANICAL VENT. EYAL COBIAN #18 INTACT AND PATENT W/ D5-1/2NS 75ML/HR. TELE REVEALS SB48 (PATIENT'S CURRENT BASELINE). SAFETY MEASURES IN PLACE: BED AT LOWEST POSITION, LOCKED, RAILS UP X3, CALL BELLA WITHIN REACH. PATIENT HAD VOMITED ALL LIQUID THAT HAD BEEN FLUSHED IN STOMACH EARLIER. HOB RAISED TO MID-HIGH FOWLERS, MOUTH SUCTIONED, TOWELS PROVIDED FOR CLEANLINESS AND ABSORPTION. TRACH SUCTIONED. PATIENT STABLE - CLOSELY AND CONTINUOUSLY MONITORED. Addendum: 11/21/21 at 0727 by ALEXI CORDERO RN REPORT ENDORSED TO AND ACKNOWLEDGED BY MARCO ANTONIO BEJARANO, FOR JENNY.
[2021-11-21 07:27] LABS: BASOPHILS # (AUTO) 0.1 K/uL (0.0-0.2); BASOPHILS % (AUTO) 1.3 % (0.0-2.0); EOSINOPHILS % (AUTO) 1.2 % (0.0-6.0); HEMATOCRIT 29 % (39-51); LYMPHOCYTES # (AUTO) 3.8 K/uL (0.8-4.8); LYMPHOCYTES % (AUTO) 37.9 % (20.0-44.0); MEAN CORPUSCULAR HGB CONC 34 g/dl (31.0-36.0); MEAN CORPUSCULAR VOLUME 91 fL (80-96); MONOCYTES # (AUTO) 0.2 K/uL (0.1-1.30); MONOCYTES % (AUTO) 2.1 % (2.0-12.0); NEUTROPHILS # (AUTO) 5.8 K/uL (1.8-8.9); NEUTROPHILS % (AUTO) 57.5 % (43.0-81.0); PLATELET COUNT (AUTO) 108 K/uL (150-450); RED BLOOD CELL COUNT(AUTO) 3.22 MIL/uL (4.5-6.0)
--- NOTE | 2021-11-21 07:40 | NUR ---
NITRO WORKER OPENING NOTES: PATIENT IN BED ASLEEP, OBTUNDED. NO SOB OR CARDIAC DISTRESS NOTED, [facility] AND TOLERATING WELL AT THIS TIME. TELE MONITOR WITH A READING OF SB 47-52 BPM. WITH G-TUBE NOTED, FEEDING ON HOLD, FAMILY AND MD AWARE. NOTED WITH IV MIDLINE ON EYAL G#18 PATENT AND INTACT, WITH D5 1/2 NS @75ML/HR INFUSING WELL. SAFETY MEASURES MAINTAINED: BED LOCKED AND IN LOWEST POSITION, SIDE RAILS UP X2 AND CALL LIGHT WITHIN REACH. WILL CONTINUE MONITORING.
[2021-11-21 08:00] VITALS: BP 79/38
[2021-11-21 08:33] LABS: CALCIUM, SERUM 8.7 mg/dL (8.5-10.1); CREATININE 4.7 mg/dL (0.6-1.3); PHOSPHORUS 7.4 mg/dL (2.5-4.9); POTASSIUM 3.9 mmol/L (3.5-5.1)
[2021-11-21] MEDS: FERROUS SULFATE UDC 300 MG/5 ML UDC GT SCH (09:29)
[2021-11-21] MEDS: LEVETIRACETAM SOL (5 ML) 100 MG/ML UDC GT SCH (09:29)
[2021-11-21] MEDS: VALPROIC ACID 250 MG/5 ML UDC GT SCH ×2 (09:29→13:10)
[2021-11-21] MEDS: DOCUSATE SODIUM LIQ 100 MG/10 ML UDC GT SCH (09:29)
[2021-11-21] MEDS: LACOSAMIDE 50 MG TABLET PO SCH (09:30)
[2021-11-21] MEDS: CHLORHEXIDINE GLUCONATE 15 ML UDC MM SCH (09:30)
[2021-11-21] MEDS: PANTOPRAZOLE 40 MG VIAL IV SCH (09:30)
[2021-11-21] MEDS: ZINC SULFATE 220 MG CAPSULE GT SCH (09:30)
[2021-11-21] MEDS: MULTIVITAMINS,THERAGRAN 1 UDTAB TABLET GT SCH (09:30)
[2021-11-21] MEDS: DAKINS QUARTER STRENGTH (0.125%) 480 ML BOTTLE TOP SCH (09:31)
[2021-11-21] MEDS: NEOMY SULF/BACITRAC ZN/POLY 15 GM TUBE TP SCH (09:31)
[2021-11-21] MEDS: THERAHONEY GEL 1.5 OZ TUBE TP SCH (09:32)
[2021-11-21] MEDS: ARGININE/GLUTAMINE/CALCIUM BMB 1 EACH POWD.PACK GT SCH (09:33)
[2021-11-21] MEDS: PROSOURCE / PROSTAT (PYXIS) 30 ML UDC GT SCH (09:33)
[2021-11-21] MEDS: NS 0.9% IV SCH (09:49)
[2021-11-21] MEDS: COLISTIMETHATE SODIUM IV SCH (09:49)
[2021-11-21 12:00] VITALS: BP 95/45
[2021-11-21] MEDS: DEXTROSE 50%-WATER 50 ML DISP.SYRIN IV PRN (14:05)
--- NOTE | 2021-11-21 14:15 | NUR ---
METER READERS SUPERVISOR NOTES PATIENT NOTED WITH LOW BLOOD SUGAR OF 42, SECOND TEST WITH BS 43. D50 ADMINISTERED PER PROTOCOL. WILL REASSESS.
--- NOTE | 2021-11-21 14:39 | NUR ---
BED LABORER NOTES REASSESSED BLOOD SUGAR. ACCU-CHECK WITH BLOOD SUGAR 163 MG/DL
[2021-11-21 15:21] LABS: BAND % (MANUAL) 5 % (0.0-5.0); LYMPHOCYTES % (MANUAL) 47 % (16-48); METAMYELOCYTES % 1 % (0-0); MONOCYTES % (MANUAL) 9 % (0-11.0); MYELOCYTES % 1 % (0-0); NEUTROPHILS % (MANUAL) 37 (42-76)
--- NOTE | 2021-11-21 16:30 | NUR ---
HEAD START TEACHER NOTES 1530 CALLED IN BY SUPPLIER SPECIALIST DUE TO PATIENT BEING CHRISTELLE. WENT TO THE ROOM, FAMILY AT BEDSIDE, OXYGENATION 85% AND HEART RATE IN LOW 30s, DECREASING. SUCTIONED PATIENT, O2 WENT A BIT UP AND THEN DOWN TO 70. RT CALLED. RN SUCTIONED PATIENT MORE, NO SECRETION COMING OUT, STILL DESATURATING. 1535 RT AT BEDSIDE SUCTIONING, PATIENT WITH ASYSTOLE 1536 CHARGE NURSE CALLED IN TO ASSESS THE PATIENT 1540 PATIENT PRONOUNCED 1544 [facility] CALLED REF # [id number]
--- NOTE | 2021-11-21 16:42 | NUR ---
RT Called into room by nurse discharge for pt assessment. No pulse- No Sp02 reading. MD order to remove ventilator support.
--- NOTE | 2021-11-21 18:22 | NUR ---
RT Trach tube removed per verbal RN order
== END 2021-11-21 15:40 | DRG 720 ==
LOC: ER 08:25 → TRANSITION 11:01 → ICU 12:45 → TELE-TD 10-04 10:16 → TELE1 10-04 15:28 → TELE 10-10 01:50 → MED 10-31 14:01 → TELE 10-31 14:05
PROVIDERS: ADMIT Nurse Practitioner Acute Care; ATTEND Internal Medicine
PROC: 5A1955Z Respiratory Ventilation, Greater than 96 Consecutive Hours (ICD-10-PCS; principal; 2021-10-04)
PROC: 05HM33Z Insertion of Infusion Device into Right Internal Jugular Vein, Percutaneous Approach (ICD-10-PCS; 2021-10-04)
PROC: B543ZZA Ultrasonography of Right Jugular Veins, Guidance (ICD-10-PCS; 2021-10-04)
PROC: 05HB33Z Insertion of Infusion Device into Right Basilic Vein, Percutaneous Approach (ICD-10-PCS; 2021-11-01)
PROC: 05H933Z Insertion of Infusion Device into Right Brachial Vein, Percutaneous Approach (ICD-10-PCS; 2021-11-04)
PROC: 30233N1 Transfusion of Nonautologous Red Blood Cells into Peripheral Vein, Percutaneous Approach (ICD-10-PCS; 2021-11-18)
DX: A41.50 Gram-negative sepsis, unspecified (principal); N17.0 Acute kidney failure with tubular necrosis; J96.21 Acute and chronic respiratory failure with hypoxia; J69.0 Pneumonitis due to inhalation of food and vomit; G93.40 Encephalopathy, unspecified; L89.154 Pressure ulcer of sacral region, stage 4; G93.1 Anoxic brain damage, not elsewhere classified; E43 Unspecified severe protein-calorie malnutrition; E87.2 Acidosis; Z99.11 Dependence on respirator [ventilator] status; Z93.0 Tracheostomy status; R53.2 Functional quadriplegia; D68.59 Other primary thrombophilia; G40.909 Epilepsy, unspecified, not intractable, without status epilepticus; Z20.822 Contact with and (suspected) exposure to COVID-19; Z66 Do not resuscitate; Z51.5 Encounter for palliative care; Z93.1 Gastrostomy status; R13.10 Dysphagia, unspecified; M62.82 Rhabdomyolysis; K21.9 Gastro-esophageal reflux disease without esophagitis; F29 Unspecified psychosis not due to a substance or known physiological condition; F32.A Depression, unspecified; Z79.51 Long term (current) use of inhaled steroids; Z79.01 Long term (current) use of anticoagulants; Z79.4 Long term (current) use of insulin; Z79.899 Other long term (current) drug therapy; E11.22 Type 2 diabetes mellitus with diabetic chronic kidney disease; E11.649 Type 2 diabetes mellitus with hypoglycemia without coma; I12.9 Hypertensive chronic kidney disease with stage 1 through stage 4 chronic kidney disease, or unspecified chronic kidney disease; I25.10 Atherosclerotic heart disease of native coronary artery without angina pectoris; N18.9 Chronic kidney disease, unspecified; N40.0 Benign prostatic hyperplasia without lower urinary tract symptoms; Z74.09 Other reduced mobility; D75.839 Thrombocytosis, unspecified; E86.0 Dehydration; Y95 Nosocomial condition; Z86.73 Personal history of transient ischemic attack (TIA), and cerebral infarction without residual deficits; Z98.2 Presence of cerebrospinal fluid drainage device; Z87.440 Personal history of urinary (tract) infections; J98.11 Atelectasis; J44.0 Chronic obstructive pulmonary disease with (acute) lower respiratory infection; K92.2 Gastrointestinal hemorrhage, unspecified; L89.892 Pressure ulcer of other site, stage 2; L89.626 Pressure-induced deep tissue damage of left heel; L89.616 Pressure-induced deep tissue damage of right heel; M62.462 Contracture of muscle, left lower leg; M62.461 Contracture of muscle, right lower leg; M62.422 Contracture of muscle, left upper arm; M62.421 Contracture of muscle, right upper arm; D69.6 Thrombocytopenia, unspecified; E78.5 Hyperlipidemia, unspecified; E86.1 Hypovolemia; E83.42 Hypomagnesemia; B96.89 Other specified bacterial agents as the cause of diseases classified elsewhere; E88.09 Other disorders of plasma-protein metabolism, not elsewhere classified; E87.0 Hyperosmolality and hypernatremia; E87.1 Hypo-osmolality and hyponatremia; E87.5 Hyperkalemia; E87.6 Hypokalemia; R74.01 Elevation of levels of liver transaminase levels; B96.1 Klebsiella pneumoniae [K. pneumoniae] as the cause of diseases classified elsewhere; Z16.35 Resistance to multiple antimicrobial drugs; B95.7 Other staphylococcus as the cause of diseases classified elsewhere; A41.1 Sepsis due to other specified staphylococcus; D63.8 Anemia in other chronic diseases classified elsewhere; S30.811A Abrasion of abdominal wall, initial encounter; S00.412A Abrasion of left ear, initial encounter; X58.XXXA Exposure to other specified factors, initial encounter; Y92.9 Unspecified place or not applicable; R68.0 Hypothermia, not associated with low environmental temperature
CPT/HCPCS: 31720; 36410; 36415; 36600; 71045-TC; 76770-TC; 80048-TC; 80053-TC; 80076-TC; 80150; 80164-TC; 80170-TC; 80177; 80202-TC; 81001; 82533; 82550-TC; 82728-TC; 82803-TC; 82962-TC; 83540-TC; 83605-TC; 83735-TC; 83880; 84100-TC; 84300-TC; 84484-TC; 85025-TC; 85027-TC; 85730-TC; 86803; 86850-TC; 87040-TC; 87070-TC; 87081-TC; 87086-TC; 87102-TC; 87186-TC; 87806; 94002-TC; 94003-TC; 94760-TC; 94762-TC; 94799-TC; 95819-TC; 99082-TC; A4216; A4349; A4623; A6253; A6403; A7526; C9113; G0378; J0278; J0290; J0692; J0770; J0878; J1580; J1644; J1885; J1953; J2020; J2060; J2185; J2270; J2274; J2405; J2543; J3370; J3475; J3480; J3490; J7030; J7040; J7042; J7050; J7060; J7070; P9016